=== PATIENT | female | born 1975 | race Caucasian/White ===

== ENCOUNTER → 2018-07-28 21:03 | Outpatient (CLI) | payer OTHER, SELFPAY ==
[2018-07-28 21:13] LABS: Absolute Neutrophil Count 3.7 X10^3/uL (2.0-7.7); Basophil# 0.04 X10^3/uL; Basophil% 0.7 % (0-1); Eosinophils% 1.7 % (0-5); Hematocrit 35.7 % (37-47); Hemoglobin 11.6 g/dl (12.0-15.0); Lymphocyte % 23.9 % (19-41); Mean Corp Hgb Conc 32.5 g/gl (32-36); Mean Corpuscular Hgb 29.7 pg (27.0-32.0); Mean Corpuscular Volume 91.5 fL (81-99); Mean Platelet Vol. 10.4 fl (6.2-12.0); Monocyte# 0.59 X10^3/uL; Monocyte% 10.1 % (0-10); Neutrophil # 3.71 X10^3/uL (2.7-7.7); Neutrophil % 63.4 % (47-70); Platelet Count 303 K/mm3 (150-450); RBC Distribution Width SD 46.4 fl (35.1-43.9); White Blood Count 5.9 K/mm3 (4.4-11.0)
[2018-07-28 21:17] LABS: POSITIVE COUNT NO; POSITIVE DIFFERENTIAL NO; POSITIVE MORPHOLOGY NO
[2018-07-28 21:24] LABS: ALB/GLOB Ratio 1.1 RATIO (0.9-2.4); AST(SGOT) 30 U/L (15-37); Alanine Aminotransfer ALT/SGPT 43 U/L (13-56); Albumin, Serum 3.8 g/dL (3.2-5.0); Alkaline Phosphatase 77 U/L (45-117); Anion Gap 7 (5-15); BUN 12 mg/dL (7-18); BUN/Creat Ratio 15.5 RATIO (10-20); Calcium,Total 8.4 mg/dL (8.5-10.1); Chloride 106 mmol/L (98-107); Creatinine, Serum 0.77 mg/dL (0.55-1.02); EST Glomerular Filtration Rate 87 mL/min (>60); Erythrocyte Sedimentation Rate 10 mm/hr (0-20); Est Glom Filt Rate - Afr Amer 105 mL/min (>60); Globulin 3.6 g/dL (2.2-4.2); Glucose 83 mg/dL (74-106); Potassium 4.1 mmol/L (3.5-5.1); Protein, Total 7.4 g/dL (6.4-8.2); Sodium Level 139 mmol/L (136-145)
[2018-07-29 10:06] LABS: CRP < 2.90 mg/L (0.0-3.0)
--- OUTSIDE RECORDS SUMMARY | 2018-10-02 17:16 | XMS RPT_ITS ---
:1975 Author Organization OHIP Care Team Providers Name Role Phone Priya Reyes [employer] Attending Unavailable Georgia Jack Primary Care Unavailable Priya Reyes [employer] Referring Unavailable Bernard Chaudhari Consulting Unavailable PROBLEMS PROBLEMS DATE TYPE CONDITION / CODE ATTENDING STATUS SOURCE 07/29/2018 Unknown M05.79 - Reyes, Active [facility] Priya [employer] [facility] arthritis with Hospital rheumatoid factor Repository of multiple sites without organ or systems involvement / M05.79(ICD-10) 07/29/2018 Unknown Z79.899 - Other Reyes, Active [facility] Priya [employer] [facility] (current) drug Hospital therapy / Repository Z79.899(ICD-10) PROCEDURES PROCEDURES No Procedure Records FoundRESULTS RESULTS OFFICE VISIT Observed: 07/29/2018 Status: F Source: [place] 12:22 PM [facility] RE[facility]ITORY [facility] [address] [place] [address] OFFICE VISIT Date of Service: 07/28/18 MR#: [id number] Acct: [id number] Name: GEORGIA PENA Rep #: [id number] : 1975 Provider: JARAD Reyes Age/Sex: 43/F Location: [facility] Status: Signed Intake Intake Visit Reasons: BROUGHT IN PAPER, for lab work HPI HPI (General) HPI HPI: GEORGIA PENA, is a 43 F who presents to the office today for Assessment AND Plan Orders Orders: Coding Level of Care Code No Charge 07/29/18 1222 <Electronically signed by Priya Reyes [employer]> Date Priya Reyes [employer] CC: CBC W/DIFF, AUTOMATED Collected: 07/28/2018 Status: F Source: [place] 4:10 PM [facility] REPOSITORY TYPE CODE TESTS RESULT OUT OF RANGE REFERENCE UNITS LAB L100.1000 4.4-11.0 K/mm3 Normal WBC 5.9 LAB L100.1200 4.2-5.4 M/mm3 Low RBC 3.90 LAB L100.1300 12.0-15.0 g/dl Low HGB 11.6 LAB L100.1400 37-47 % Low HCT 35.7 LAB L100.1500 81-99 fL Normal MCV 91.5 LAB L100.1600 27.0-32.0 pg Normal MCH 29.7 LAB L100.1700 32-36 g/gl Normal MCHC 32.5 LAB L100.1810 11.6-14.6 % Normal RDW CV 14.0 LAB L100.1820 35.1-43.9 fl High RDW SD 46.4 LAB L100.1900 150-450 K/mm3 Normal PLT 303 LAB L100.2000 6.2-12.0 fl Normal MPV 10.4 LAB L100.2100 47-70 % Normal NEUT% 63.4 LAB L100.2200 19-41 % Normal LY% 23.9 LAB L100.2300 0-10 % High MONO% 10.1 LAB L100.2400 0-5 % Normal EO% 1.7 LAB L100.2500 0-1 % Normal BASO% 0.7 LAB L100.2550 0.0-0.9 % Normal IM GRAN % 0.200 Result Comment: IG% - Immature Granulocytes (promyelocytes, myelocytes and metamyelocytes) > 1% indicates that a LEFT SHIFT is Present. LAB L100.2620 2.0-7.7 X10 3/uL Normal Absolute Neut 3.7 LAB L100.2720 0.83-4.51 X10 3/ul Normal Absolute Lymph 1.40 Performed By: #### L100.0100, L101.9900, L500.4050, L501.6710 #### [facility] [address] [place], [address] ERYTHROCYTE SED RATE Collected: 07/28/2018 Status: F Source: [place] 4:10 PM [facility] REPOSITORY TYPE CODE TESTS RESULT OUT OF RANGE REFERENCE UNITS LAB L102.0000 0-20 mm/hr Normal SED RATE 10 Performed By: #### L100.0100, L101.9900, L500.4050, L501.6710 #### [facility] [address] [place], [address] COMPREHENSIVE METABOLIC Collected: 07/28/2018 Status: F Source: [place] [facility] 4:10 PM [facility] REPOSITORY Order Comment: PLEASE ADD CRP TO BLOOD FROM 07-28-18 WY2 5 A/E TYPE CODE TESTS RESULT OUT OF RANGE REFERENCE UNITS LAB L501.0100 74-106 mg/dL Normal GLU 83 Result Comment: Please note revised GLUCOSE reference range effective 2017. LAB L501.1000 7-18 mg/dL Normal BUN 12 LAB L501.1100 0.55-1.02 mg/dL Normal CREAT,SERUM 0.77 Result Comment: The validity of the calculated GFR AND GFRAA in patients over 70 years has not been determined. Clinical correlation is essential. LAB L501.1110 >60 mL/min Normal EST GFR 87 Result Comment: Non- GFR Calc LAB L501.1115 >60 mL/min Normal EST GFR - AA 105 Result Comment: GFR Calc LAB L501.1300 10-20 RATIO Normal BUN/CRE 15.5 LAB L501.1500 6.4-8.2 g/dL T Normal PROT 7.4 LAB L501.1800 3.2-5.0 g/dL Normal ALB 3.8 LAB L501.1950 2.2-4.2 g/dL Normal GLOB 3.6 LAB L501.2000 0.9-2.4 RATIO Normal A/G 1.1 LAB L501.2200 8.5-10.1 mg/dL Low CA 8.4 LAB L501.4100 15-37 U/L Normal AST 30 LAB L501.4305 45-117 U/L Normal ALK P 77 LAB L501.4405 13-56 U/L Normal ALT 43 LAB L501.4600 0.20-1.00 mg/dL T Normal BILI 0.20 LAB L501.5300 136-145 mmol/L NA Normal 139 LAB L501.5600 3.5-5.1 mmol/L K Normal 4.1 LAB L501.5900 98-107 mmol/L CL Normal 106 LAB L501.6100 21.0-32.0 mmol/L Normal CO2 26.0 LAB L501.6200 5-15 Normal GAP 7 Performed By: #### L100.0100, L101.9900, L500.4050, L501.6710 #### [facility] [address] [place], [address] CRP Collected: 07/28/2018 Status: F Source: [place] 4:10 PM [facility] REPOSITORY Order Comment: PLEASE ADD CRP TO BLOOD FROM 07-28-18 WY 5 A/E TYPE CODE TESTS RESULT OUT OF RANGE REFERENCE UNITS LAB L501.6710 0.0-3.0 mg/L Normal < 2.90 C-REACTIVE PROT Result Comment: C-Reactive Protein (CRP) provides useful information for the diagnosis, therapy and monitoring of inflammatory processes and associated diseases. For the evaluation of Relative Risk for Cardiovascular Disease, a High Sensitivity CRP (HSCRP) should be ordered. Performed By: #### L100.0100, L101.9900, L500.4050, L501.6710 #### [facility] [address] [place], [address] ALLERGIES ALLERGIES No Allergies Records FoundENCOUNTERS ENCOUNTERS ADMIT/DISCHARGE ACCOUNT ADMITTING ENCOUNTER LOCATION SOURCE NUMBER CLASS 07/28/2018 [id number] Ambulatory [address] ing:[facility]SPEC Repository PAYERS PAYERS ENCOUNTER GUARANTOR PAYER SUBSCRIBER SOURCE 07/28/2018 [place] [id number] Primary [place] SUAREZ: [place]akan [place] Insurance:[id number] [address]Hrz: (327) Number: Repository [phone] HP) [id number] Date:[id number] [id number]: 07/28/2018 Secondary NOT GIVENUNK [employer] Insurance:[facility]LF [facility]Y [facility] Number: Effective Repository Date:2018-07-28
== END ==
PROVIDERS: Referring Provider Nurse Practitioner; Visit Provider Nurse Practitioner
DX: M05.79 Rheumatoid arthritis with rheumatoid factor of multiple sites without organ or systems involvement (principal); Z79.899 Other long term (current) drug therapy
CPT/HCPCS: 80053; 85025; 85652; 86140

== ENCOUNTER → 2018-11-19 10:56 | Outpatient (CLI) | payer OTHER, SELFPAY ==
[2018-11-19 12:15] LABS: Absolute Lymphocyte Count 1.46 X10^3/ul (0.83-4.51); Absolute Neutrophil Count 2.8 X10^3/uL (2.0-7.7); Basophil# 0.02 X10^3/uL; Basophil% 0.4 % (0-1); Eosinophil# 0.06 X10^3/uL; Eosinophils% 1.3 % (0-5); Hematocrit 33.2 % (37-47); Lymphocyte # 1.46 X10^3/ul (4.0); Mean Corp Hgb Conc 33.1 g/gl (32-36); Mean Corpuscular Hgb 29.8 pg (27.0-32.0); Mean Platelet Vol. 10.2 fl (6.2-12.0); Monocyte# 0.35 X10^3/uL; Monocyte% 7.4 % (0-10); Neutrophil # 2.82 X10^3/uL (2.7-7.7); Neutrophil % 59.9 % (47-70); POSITIVE COUNT NO; POSITIVE DIFFERENTIAL NO; POSITIVE MORPHOLOGY NO; Platelet Count 302 K/mm3 (150-450); RBC Distribution Width CV 14.2 % (11.6-14.6); RBC Distribution Width SD 46.5 fl (35.1-43.9); Red Blood Count 3.69 M/mm3 (4.2-5.4); White Blood Count 4.7 K/mm3 (4.4-11.0)
[2018-11-19 12:42] LABS: Vitamin B12 406 pg/mL (211-911); Vitamin D,25 Hydroxy 33.9 ng/mL (29.95-100.01)
[2018-11-19 12:57] LABS: Hemoglobin A1c 5.4 % (4.2-6.3)
[2018-11-19 13:55] LABS: Anion Gap 8 (5-15); BUN 8 mg/dL (7-18); BUN/Creat Ratio 11.6 RATIO (10-20); Calcium,Total 8.7 mg/dL (8.5-10.1); Chloride 109 mmol/L (98-107); Cholesterol 220 mg/dL (200); Creatinine, Serum 0.69 mg/dL (0.55-1.02); EST Glomerular Filtration Rate 99 mL/min (>60); Est Glom Filt Rate - Afr Amer 120 mL/min (>60); Ferritin 9 ng/mL (8-252); Glucose 90 mg/dL (74-106); High Density Lipoprotein 54 mg/dL; Iron 43 ug/dL (50-170); Iron Binding Capacity,Total 394 ug/dL (250-450); Potassium 4.3 mmol/L (3.5-5.1); Sodium Level 140 mmol/L (136-145); Triglycerides 109 mg/dL; Very Low Density Lipoprotein 22 mg/dL (5-40)
[2018-11-19 15:50] LABS: Microalbumin,Random Urine < 5.0 mg/L (NO RANGE EST.)
== END ==
PROVIDERS: Family Provider Family Medicine; PCP Family Medicine; Referring Provider Family Medicine; Visit Provider Family Medicine
DX: D64.9 Anemia, unspecified (principal); R73.09 Other abnormal glucose; E78.5 Hyperlipidemia, unspecified; E55.9 Vitamin D deficiency, unspecified; R53.83 Other fatigue
CPT/HCPCS: 36415; 80048; 80061; 82043; 82306; 82570; 82607; 82728; 82746; 83036; 83540; 83550; 85025

== ENCOUNTER → 2018-12-17 10:03 | Outpatient (CLI) | payer OTHER, SELFPAY ==
[2018-11-29 09:29] VITALS: BMI 30.6
[2018-12-17 12:46] LABS: Absolute Lymphocyte Count 1.19 X10^3/ul (0.83-4.51); Absolute Neutrophil Count 2.6 X10^3/uL (2.0-7.7); Basophil# 0.02 X10^3/uL; Basophil% 0.5 % (0-1); Eosinophils% 2.3 % (0-5); Lymphocyte # 1.19 X10^3/ul (4.0); Lymphocyte % 27.5 % (19-41); Mean Corp Hgb Conc 23.5 g/gl (32-36); Mean Corpuscular Hgb 21.7 pg (27.0-32.0); Mean Corpuscular Volume 92.1 fL (81-99); Mean Platelet Vol. 10.8 fl (6.2-12.0); Monocyte# 0.43 X10^3/uL; Monocyte% 9.9 % (0-10); Neutrophil # 2.59 X10^3/uL (2.7-7.7); Neutrophil % 59.8 % (47-70); Platelet Count 293 K/mm3 (150-450); RBC Distribution Width CV 14.4 % (11.6-14.6); RBC Distribution Width SD 47.1 fl (35.1-43.9); Red Blood Count 3.69 M/mm3 (4.2-5.4); White Blood Count 4.3 K/mm3 (4.4-11.0)
[2018-12-17 12:50] LABS: POSITIVE COUNT NO; POSITIVE DIFFERENTIAL NO; POSITIVE MORPHOLOGY NO
[2018-12-17 13:14] LABS: Ferritin 30 ng/mL (8-252); Iron 38 ug/dL (50-170); Iron Binding Capacity,Total 337 ug/dL (250-450)
== END ==
PROVIDERS: Family Provider Family Medicine; PCP Family Medicine; Referring Provider Family Medicine; Visit Provider Family Medicine
DX: D50.9 Iron deficiency anemia, unspecified (principal)
CPT/HCPCS: 36415; 82728; 83540; 83550; 85025

== ENCOUNTER 2018-12-21 08:06 | Day surgery (SDC) | payer OTHER, SELFPAY ==
[2018-11-29 09:29] VITALS: BMI 30.6
--- NOTE | 2018-11-29 09:53 | HP_ITS ---
Intake Vital Signs 11/29/18 Height 5 ft 3.75 in 11/29/18 Weight: 177 lb 11/29/18 Body Mass Index (BMI) 30.6 11/29/18 Blood Pressure 116/74 11/29/18 Blood Pressure Location Rt brachial 11/29/18 Blood Pressure Position Sitting 11/29/18 Respiratory Rate 18 11/29/18 Pulse Rate 85 Intake Visit Reasons: Upper & Lower Scope Anemia & Familly Hx (Father) [employer] Required: No Is patient in pain?: No Allergies No Known Allergies Allergy (Unverified 11/29/18 09:30) Medications diphenhydramine 25 mg capsule 25 mg PO QHS PRN 11/29/18 [History Confirmed 11/29/18] ferrous sulfate 325 mg (65 mg iron) tablet 325 mg PO BID tab 11/29/18 [History Confirmed 11/29/18] hydroxychloroquine 200 mg tablet 300 mg PO DAILY tab 11/29/18 [History Confirmed 11/29/18] leucovorin calcium 5 mg tablet 5 mg PO QWEEK tab 11/29/18 [History Confirmed 11/29/18] methotrexate sodium 2.5 mg tablet 20 mg PO QWEEK tab 11/29/18 [History Confirmed 11/29/18] naproxen sodium 220 mg capsule 220 mg PO BID PRN 11/29/18 [History Confirmed 11/29/18] PFSH Medical History Anemia (Acute) Rheumatoid arthritis (Acute) Surgical History S/P (Acute) S/P tubal ligation (Acute) h/o finger surgery (Acute) s/p tonsillectomy (Acute) Family History Father Colon cancer Son Asthma Social History Smoking Status: Never smoker alcohol intake: current alcohol intake frequency: holidays/special occasions only HPI HPI HPI: TIERRA PENA, is a 43 F who presents to the office today for HPI HPI Surgical H&P: Yes HPI: TIERRA PENA, is a 43 F who presents to the office today for colonoscopy. Patient reports that her father was diagnosed with chloride of cancer at age 59. She is never had a colonoscopy in the past. She denies any gross blood in her stool. She does have some anemia but she says she has been anemic ever since she had her first child 18 years ago. She also has off-and-on GERD. ROS General General: Yes fatigue; no weight change Musc Musculoskeletal: Yes rheumatoid arthritis Cardio Cardiovascular: No murmur, pacemaker, heart disease, atrial fibrillation, high blood pressure, heart attack, heart stent, palpitations, shortness of breat with exertion or chest pain Psych Psychiatric: No depression or anxiety Resp Respiratory: No shortness of breath, No sleep apnea, No cough, No COPD, No asthma, No emphysema, No wheezing Gastro Gastrointestinal: No abdominal pain, No nausea or vomiting, No diarrhea, No constipation, No blood in stool, No acid reflux, No hemorrhoids, No ulcers, No gallbladder problem, No black,tarry stools Rickey Hematologic: No blood thinners, Yes anemia Exam Const General: cooperative Orientation: alert, oriented x3 Resp Effort & Inspection: normal respiratory effort Auscultation: clear to auscultation bilaterally Cardio Rate: regular rate Rhythm: regular rhythm Heart Sounds: no murmurs GI Inspection: non-distended Palpation: soft, nontender Assessment & Plan Problems 1. Family history of malignant neoplasm of colon in first degree relative diagnosed when younger than 60 years of age Z80.0 2. Gastroesophageal reflux disease, esophagitis presence not specified K21.9 Plan The patient has long-standing GERD as well as a family history in a first-degree relative with colorectal cancer. Patient requires EGD and colonoscopy. I explained endoscopy in detail to the patient. I explained the risks including but not limited to stroke or heart attack with anesthesia, perforation of the GI tract, bleeding, infection. I explained that any of these could necessitate further emergency surgery. The patient understands and all questions were answered sufficiently. The patient wishes to proceed with procedure. Wallace Whitehead MD Pager: [facility] [address] [place] [address], [address] [place] [address] Office: Orders Orders: Colonoscopy Today Z80.0 EGD Today K21.9 Coding Level of Care Code Off vis,new,level 3 Diagnoses Family history of malignant neoplasm of colon in first degree relative diagnosed when younger than 60 years of age Z80.0 Gastroesophageal reflux disease, esophagitis presence not specified K21.9 ??Esophagitis presence: esophagitis presence not specified 11/29/18 0954 <Electronically signed by Wallace Whitehead MD> Date Wallace ALICEA I have re-examined the patient. There are no clinical changes since date of exam.
--- NOTE | 2018-12-21 | GASB_PTH ---
PATIENT: TIERRA PENA LOC: EN U#:[id number] AGE/SX: 43/F ROOM: RE12/21/[address]: Dr. Wallace Whitehead MD : 1975 BED: DIS: 12/21/2018 SPEC #: [id number] RECD: 12/21/18 13:54 STATUS: JORDANA HOBBSBrad #: [id number] BETTY: 12/21/18 00:[address]: Wallace Whitehead DEPT: SURGICAL PATHOLOGY RECD BY: Walter Ramey ENTERED: 12/21/18 13:55 SP TYPE: Gastric Bx OTHR DR: Dr. Jose Luis Alegria MD Tissues: A - Gastric mucous membrane B - Gastric mucous membrane Procedures: Special Stain Group II Surgery Specimen Level IV Alcian Blue/PAS (control) HEADER OPERATION: Colonoscopy, E[place] PRE-OP DIAGNOSIS: GERD, family history malignant neoplasm of colon TISSUE SUBMITTED: A - Antrum biopsy for H. pylori and path, B - GE junction biopsy MICROSCOPIC DIAGNOSIS A. Gastric antrum, biopsy: Mild chronic gastritis. See comment. B. Gastroesophageal junction, biopsy: Fragments of gastric mucosa with mild chronic inflammation. No evidence of intestinal metaplasia. See comment. AM:rudy 12/22/18 COMMENT A. The results of immunohistochemistry for Helicobacter pylori will be reported separately ([id number]). B. Alcian blue/PAS stain with matched control supports the above diagnosis. MICROSCOPIC DESCRIPTION Slides are reviewed. GROSS DESCRIPTION A - Received in fixative is one container labeled with the patient's name and designated antrum biopsy. The specimen consists of two irregular fragments of light rivas soft tissue that in aggregate measure 0.6 x 0.3 x 0.1 cm. The specimen is totally submitted in one cassette. B - Received in fixative is one container labeled with the patient's name and designated GE junction. The specimen consists of two irregular fragments of light rivas soft tissue that in aggregate measure 0.7 x 0.3 x 0.1 cm. The specimen is totally submitted in one cassette. / AM:rudy 12/21/18 TC:3 CPT: 41140 x2, 84267
[2018-12-21 08:41] VITALS: BP 114/92; PULSE 84; RESP 18; TEMP 36.7; O2SAT 100; BMI 29.9
--- NOTE | 2018-12-21 09:15 | IMM_PTH ---
PATIENT: TIERRA PENA LOC: EN U#:[id number] AGE/SX: 43/F ROOM: RE12/21/[address]: Dr. Wallace Whitehead MD : 1975 BED: DIS: 12/21/2018 SPEC #: [id number] RECD: 12/21/18 14:16 STATUS: JORDANA VICTORIA #: [id number] BETTY: 12/21/18 09:[address]: Wallace Whitehead DEPT: IMMUNOHISTOCHEMISTRY RECD BY: Fely Henriquez ENTERED: 12/21/18 14:16 SP TYPE: IMMUNO OTHR DR: Dr. Jose Luis Alegria MD Tissues: A - Stomach, NOS Procedures: H Pylori (initial) PHYSICIAN & INSTITUTION [place] [address] SPECIMEN INFORMATION: Tissue Source: A - Antrum biopsy Clinical Info: GERD Specimen Number: [id number] CPT code: 34836 METHODOLOGY: Deparaffinized sections of prefer/formalin-fixed tissue or PAP/DQ stained slides are incubated with monoclonal/polyclonal antibodies/oligonucleotide probes. Localization is made via biotin free immunoperoxidase method. Appropriate controls are performed and reacted as expected. Results on target cell population are indicated in the following table: RESULTS: ANTIBODY / CLONE RESULT Block A H Pylori (polyclonal) negative These tests were developed and their performance characteristics determined by [facility]. They may not have been cleared or approved by the U.S. Food and Drug Administration. The FDA has determined that such clearance or approval is not necessary. INTERPRETATION: A. Antrum biopsy: Negative for Helicobacter pylori organisms. AM:rudy 12/22/18
[2018-12-21 11:00] VITALS: BP 111/71; BP 114/92; PULSE 64; RESP 14; TEMP 36.9; O2SAT 98
--- NOTE | 2018-12-21 11:00 | OP.ENDO_ITS ---
12/21/2018 Jose Luis Alegria [address] [place] [address] Re : Upper GI endoscopy procedure for Georgia Gold Dear Dr. Alegria This procedure was performed on Friday, December 21, 2018. My impressions and recommendations are as follows: Impressions : - Philadelphia-colored mucosa suspicious for Quezada's esophagus. Biopsied. - The examination was otherwise normal. - Biopsies were taken with a cold forceps for Helicobacter pylori testing. Recommendations : - Await pathology results. - Discharge patient to home. - Resume previous diet. - Continue present medications. My findings are described in the full procedure note, which is enclosed. If I can be of further assistance, please feel free to contact me at Doctor phone number(s): , Work: . Sincerely, Wallace Whitehead MD 12/21/2018 10:59:51 AM This report has been signed electronically.
--- NOTE | 2018-12-21 11:01 | OP.ENDO_ITS ---
12/21/2018 Jose Luis Alegria [address] [place] [address] Re : Colonoscopy procedure for Georgia Malcolm Dear Dr. Alegria This procedure was performed on Friday, December 21, 2018. My impressions and recommendations are as follows: Impressions : - The entire examined colon is normal on direct and retroflexion views. - No specimens collected. Recommendations : - Discharge patient to home. - Resume previous diet. - Continue present medications. - Repeat colonoscopy in 10 years for screening purposes. My findings are described in the full procedure note, which is enclosed. If I can be of further assistance, please feel free to contact me at Doctor phone number(s): , Work: . Sincerely, Wallace Whitehead MD 12/21/2018 11:01:04 AM This report has been signed electronically.
[2018-12-21 11:05] VITALS: BP 114/92; BP 94/53; PULSE 69; RESP 16; O2SAT 99
[2018-12-21 11:10] VITALS: BP 114/92; BP 97/48; PULSE 75; RESP 16; O2SAT 99
[2018-12-21 11:15] VITALS: BP 105/66; BP 114/92; PULSE 67; RESP 16; TEMP 36.5; O2SAT 96
[2018-12-21 11:39] VITALS: BP 114/92
== END 2018-12-21 11:54 | disposition home or self-care (01) ==
LOC: EN 08:06 → AC 08:07
PROVIDERS: Family Provider Family Medicine; PCP Family Medicine; Referring Provider Family Medicine; Visit Provider Surgery
PROC: 0DJD8ZZ Inspection of Lower Intestinal Tract, Via Natural or Artificial Opening Endoscopic (ICD-10-PCS; CPT 45378; principal; 2018-12-21 09:10)
DX: K21.9 Gastro-esophageal reflux disease without esophagitis (principal); K29.50 Unspecified chronic gastritis without bleeding; K22.8 Other specified diseases of esophagus; Z12.11 Encounter for screening for malignant neoplasm of colon; Z80.0 Family history of malignant neoplasm of digestive organs; D64.9 Anemia, unspecified; M06.9 Rheumatoid arthritis, unspecified
CPT/HCPCS: 43239; 45378; 88305; 88313; 88342; J7120; J2405

== ENCOUNTER → 2018-12-31 14:30 | Outpatient (CLI) | payer OTHER, SELFPAY ==
[2018-12-21 08:41] VITALS: BMI 29.9
[2018-12-31 15:31] LABS: Absolute Lymphocyte Count 1.32 X10^3/ul (0.83-4.51); Absolute Neutrophil Count 3.4 X10^3/uL (2.0-7.7); Basophil# 0.03 X10^3/uL; Basophil% 0.6 % (0-1); Eosinophil# 0.09 X10^3/uL; Eosinophils% 1.7 % (0-5); Hematocrit 35.6 % (37-47); Hemoglobin 11.9 g/dl (12.0-15.0); Lymphocyte # 1.32 X10^3/ul (4.0); Lymphocyte % 24.6 % (19-41); Mean Corp Hgb Conc 33.4 g/gl (32-36); Mean Corpuscular Hgb 30.5 pg (27.0-32.0); Mean Corpuscular Volume 91.3 fL (81-99); Mean Platelet Vol. 10.8 fl (6.2-12.0); Monocyte# 0.51 X10^3/uL; Monocyte% 9.5 % (0-10); Neutrophil % 63.4 % (47-70); Platelet Count 302 K/mm3 (150-450); RBC Distribution Width CV 14.1 % (11.6-14.6); RBC Distribution Width SD 46.1 fl (35.1-43.9); White Blood Count 5.4 K/mm3 (4.4-11.0)
[2018-12-31 15:33] LABS: POSITIVE COUNT NO; POSITIVE DIFFERENTIAL NO; POSITIVE MORPHOLOGY NO
== END ==
PROVIDERS: Family Provider Family Medicine; PCP Family Medicine; Referring Provider Family Medicine; Visit Provider Family Medicine
DX: D50.9 Iron deficiency anemia, unspecified (principal)
CPT/HCPCS: 36415; 85025

== ENCOUNTER → 2019-03-24 09:27 | Outpatient (CLI) | payer OTHER, SELFPAY ==
[2019-03-01 09:31] VITALS: BMI 30.1
[2019-03-24 12:49] LABS: Cholesterol 202 mg/dL (200); Ferritin 31 ng/mL (8-252); High Density Lipoprotein 51 mg/dL; Iron 101 ug/dL (50-170); Iron Binding Capacity,Total 332 ug/dL (250-450); Triglycerides 200 mg/dL; Very Low Density Lipoprotein 40 mg/dL (5-40)
[2019-03-24 12:54] LABS: Hemoglobin A1c 4.6 % (4.2-6.3); Vitamin D,25 Hydroxy 27.2 ng/mL (29.95-100.01)
[2019-03-24 12:55] LABS: Absolute Lymphocyte Count 1.34 X10^3/uL (0.83-4.51); Absolute Neutrophil Count 2.2 X10^3/uL (2.0-7.7); Basophil# 0.02 X10^3/uL; Basophil% 0.5 % (0-1); Eosinophil# 0.11 X10^3/uL; Eosinophils% 2.7 % (0-5); Hematocrit 35.1 % (37-47); Hemoglobin 11.4 g/dL (12.0-15.0); Lymphocyte # 1.34 X10^3/ul (4.0); Lymphocyte % 32.5 % (19-41); Mean Corp Hgb Conc 32.5 g/dL (32-36); Mean Corpuscular Hgb 31.1 pg (27.0-32.0); Mean Corpuscular Volume 95.9 fL (81-99); Mean Platelet Vol. 10.6 fl (6.2-12.0); Monocyte# 0.41 X10^3/uL; NRBC Flagged by Analyzer 0 % (0-5); Neutrophil # 2.23 X10^3/uL (2.7-7.7); Neutrophil % 54.1 % (47-70); Platelet Count 260 K/mm3 (150-450); RBC Distribution Width CV 13.5 % (11.6-14.6); RBC Distribution Width SD 48.1 fl (35.1-43.9); Red Blood Count 3.66 M/mm3 (4.2-5.4); White Blood Count 4.1 K/mm3 (4.4-11.0)
== END ==
PROVIDERS: Family Provider Family Medicine; PCP Family Medicine; Referring Provider Family Medicine; Visit Provider Family Medicine
DX: D50.9 Iron deficiency anemia, unspecified (principal); R73.09 Other abnormal glucose; E78.5 Hyperlipidemia, unspecified; E55.9 Vitamin D deficiency, unspecified
CPT/HCPCS: 36415; 80061; 82306; 82728; 83036; 83540; 83550; 85025

== ENCOUNTER → 2019-06-21 11:10 | Outpatient (CLI) | payer OTHER, SELFPAY ==
[2019-03-01 09:31] VITALS: BMI 30.1
[2019-06-21 13:49] LABS: Absolute Lymphocyte Count 0.99 X10^3/uL (0.83-4.51); Basophil# 0.04 X10^3/uL; Eosinophil# 0.46 X10^3/uL; Eosinophils% 11.3 % (0-5); Hematocrit 35.2 % (37-47); Hemoglobin 11.6 g/dL (12.0-15.0); Lymphocyte # 0.99 X10^3/ul (4.0); Lymphocyte % 24.3 % (19-41); Mean Corpuscular Volume 94.1 fL (81-99); Mean Platelet Vol. 10.1 fl (6.2-12.0); Monocyte# 0.54 X10^3/uL; Monocyte% 13.3 % (0-10); NRBC Flagged by Analyzer 0 % (0-5); Neutrophil # 2.03 X10^3/uL (2.7-7.7); Neutrophil % 49.9 % (47-70); Platelet Count 269 K/mm3 (150-450); RBC Distribution Width CV 13.5 % (11.6-14.6); Red Blood Count 3.74 M/mm3 (4.2-5.4); White Blood Count 4.1 K/mm3 (4.4-11.0)
[2019-06-21 14:05] LABS: Ferritin 14 ng/mL (8-252); Iron 54 ug/dL (50-170); Iron Binding Capacity,Total 360 ug/dL (250-450)
== END ==
PROVIDERS: Family Provider Family Medicine; PCP Family Medicine; Visit Provider Family Medicine
DX: D50.9 Iron deficiency anemia, unspecified (principal)
CPT/HCPCS: 36415; 82728; 83540; 83550; 85025

== ENCOUNTER → 2019-06-23 09:49 | Outpatient (CLI) | payer OTHER, SELFPAY ==
[2019-03-01 09:31] VITALS: BMI 30.1
--- NOTE | 2019-06-23 09:55 | RAD_ITS ---
STUDY: X-RAY CHEST REASON FOR EXAM: Female, 44 years old. One-month history of shortness of breath on exertion and cough. TECHNIQUE: PA and lateral views of the chest. COMPARISON: None. FINDINGS: The lungs are clear and expanded. Scattered calcified granulomas. There is no demonstrated pleural abnormality. Normal size heart. Normal mediastinum and franc. Normal visualized pulmonary arteries. Normal visualized aortic arch and descending thoracic aorta. There are mild degenerative changes of the visualized thoracic spine. Normal visualized ribs, clavicles, and shoulders. There is no demonstrated abnormality of the visualized soft tissue structures of the upper abdomen. RAD/Chest PA and Lateral IMPRESSION: Scattered calcified granulomas. Electronically Signed: Jerome Fay, at 10:06 EST , Service support ,
== END ==
LOC: MTLAB 09:52 → MTRAD 09:53
PROVIDERS: Family Provider Family Medicine; PCP Family Medicine; Referring Provider Family Medicine; Visit Provider Family Medicine
DX: R06.02 Shortness of breath (principal)
CPT/HCPCS: 71046

== ENCOUNTER → 2020-01-18 08:02 | Outpatient (CLI) | payer OTHER, SELFPAY ==
[2020-01-03 08:52] VITALS: BMI 30.1
[2020-01-18 10:15] LABS: Absolute Lymphocyte Count 1.36 X10^3/uL (0.83-4.51); Absolute Neutrophil Count 1.8 X10^3/uL (2.0-7.7); Basophil# 0.03 X10^3/uL; Basophil% 0.8 % (0-1); Eosinophil# 0.13 X10^3/uL; Eosinophils% 3.5 % (0-5); Hematocrit 35.9 % (37-47); Hemoglobin 11.3 g/dL (12.0-15.0); Lymphocyte # 1.36 X10^3/ul (4.0); Lymphocyte % 36.6 % (19-41); Mean Corp Hgb Conc 31.5 g/dL (32-36); Mean Corpuscular Hgb 30.7 pg (27.0-32.0); Mean Corpuscular Volume 97.6 fL (81-99); Mean Platelet Vol. 10.6 fl (6.2-12.0); Monocyte# 0.38 X10^3/uL; Monocyte% 10.2 % (0-10); NRBC Flagged by Analyzer 0 % (0-5); Neutrophil # 1.81 X10^3/uL (2.7-7.7); Neutrophil % 48.6 % (47-70); Platelet Count 325 K/mm3 (150-450); RBC Distribution Width CV 14.7 % (11.6-14.6); RBC Distribution Width SD 52.8 fl (35.1-43.9); Red Blood Count 3.68 M/mm3 (4.2-5.4); White Blood Count 3.7 K/mm3 (4.4-11.0)
[2020-01-18 10:37] LABS: Vitamin B12 436 pg/mL (211-911); Vitamin D,25 Hydroxy 37.2 ng/mL
[2020-01-18 10:46] LABS: AST(SGOT) 33 U/L (15-37); Alanine Aminotransfer ALT/SGPT 52 U/L (13-56); Albumin, Serum 3.6 g/dL (3.2-5.0); Alkaline Phosphatase 72 U/L (45-117); Anion Gap 6 (5-15); BUN 14 mg/dL (7-18); BUN/Creat Ratio 21.3 RATIO (10-20); Calcium,Total 8.5 mg/dL (8.5-10.1); Chloride 106 mmol/L (98-107); Cholesterol 229 mg/dL (200); Creatinine, Serum 0.66 mg/dL (0.55-1.02); EST Glomerular Filtration Rate 104 mL/min (>60); Est Glom Filt Rate - Afr Amer 126 mL/min (>60); Ferritin 17 ng/mL (8-252); Globulin 3.5 g/dL (2.2-4.2); Glucose 96 mg/dL (74-106); High Density Lipoprotein 47 mg/dL; Iron 97 ug/dL (50-170); Iron Binding Capacity,Total 384 ug/dL (250-450); Potassium 4.2 mmol/L (3.5-5.1); Protein, Total 7.1 g/dL (6.4-8.2); Sodium Level 139 mmol/L (136-145); Triglycerides 199 mg/dL; Very Low Density Lipoprotein 40 mg/dL (5-40)
== END ==
PROVIDERS: PCP Family Medicine; Visit Provider Family Medicine
DX: D64.9 Anemia, unspecified (principal); E78.5 Hyperlipidemia, unspecified; E55.9 Vitamin D deficiency, unspecified
CPT/HCPCS: 36415; 80053; 80061; 82306; 82607; 82728; 82746; 83540; 83550; 85025

== ENCOUNTER → 2020-07-03 09:37 | Outpatient (CLI) | payer OTHER, SELFPAY ==
[2020-01-03 08:52] VITALS: BMI 30.1
[2020-07-03 12:32] LABS: Absolute Lymphocyte Count 2.68 X10^3/uL (0.83-4.51); Basophil# 0.04 X10^3/uL; Basophil% 0.6 % (0-1); Eosinophils% 1.6 % (0-5); Hematocrit 35.4 % (37-47); Hemoglobin 11.4 g/dL (12.0-15.0); Lymphocyte # 2.68 X10^3/ul (4.0); Lymphocyte % 42.3 % (19-41); Mean Corp Hgb Conc 32.2 g/dL (32-36); Mean Corpuscular Hgb 30.9 pg (27.0-32.0); Mean Corpuscular Volume 95.9 fL (81-99); Mean Platelet Vol. 10.2 fl (6.2-12.0); Monocyte# 0.52 X10^3/uL; Monocyte% 8.2 % (0-10); NRBC Flagged by Analyzer 0 % (0-5); Neutrophil # 2.99 X10^3/uL (2.7-7.7); Neutrophil % 47.1 % (47-70); Platelet Count 377 K/mm3 (150-450); RBC Distribution Width CV 13.6 % (11.6-14.6); RBC Distribution Width SD 47.6 fl (35.1-43.9); Red Blood Count 3.69 M/mm3 (4.2-5.4); White Blood Count 6.3 K/mm3 (4.4-11.0)
[2020-07-03 12:36] LABS: Vitamin B12 437 pg/mL (211-911)
[2020-07-03 13:18] LABS: ALB/GLOB Ratio 1.1 RATIO (0.9-2.4); AST(SGOT) 12 U/L (15-37); Alanine Aminotransfer ALT/SGPT 27 U/L (13-56); Albumin, Serum 3.7 g/dL (3.2-5.0); Alkaline Phosphatase 62 U/L (45-117); Anion Gap 6 (5-15); BUN 16 mg/dL (7-18); BUN/Creat Ratio 21.3 RATIO (10-20); Calcium,Total 8.6 mg/dL (8.5-10.1); Chloride 107 mmol/L (98-107); Cholesterol 264 mg/dL (200); Creatinine, Serum 0.75 mg/dL (0.55-1.02); EST Glomerular Filtration Rate 89 mL/min (>60); Est Glom Filt Rate - Afr Amer 108 mL/min (>60); Ferritin 11 ng/mL (8-252); Globulin 3.3 g/dL (2.2-4.2); Glucose 88 mg/dL (74-106); High Density Lipoprotein 51 mg/dL; Iron 100 ug/dL (50-170); Iron Binding Capacity,Total 365 ug/dL (250-450); Potassium 3.7 mmol/L (3.5-5.1); Sodium Level 140 mmol/L (136-145); Triglycerides 194 mg/dL; Very Low Density Lipoprotein 39 mg/dL (5-40)
== END ==
PROVIDERS: PCP Family Medicine; Referring Provider Family Medicine; Visit Provider Family Medicine
DX: D64.9 Anemia, unspecified (principal); E78.5 Hyperlipidemia, unspecified; E55.9 Vitamin D deficiency, unspecified
CPT/HCPCS: 36415; 80053; 80061; 82306; 82607; 82728; 82746; 83540; 83550; 85025

== ENCOUNTER → 2020-08-28 11:19 | Outpatient (CLI) | payer OTHER, SELFPAY ==
[2020-01-03 08:52] VITALS: BMI 30.1
[2020-08-28 12:45] LABS: SARS-COV-2 TOTAL ABS Reactive (Nonreactive)
== END ==
PROVIDERS: PCP Family Medicine; Referring Provider Internal Medicine Pulmonary Disease; Visit Provider Internal Medicine Pulmonary Disease
DX: Z01.84 Encounter for antibody response examination (principal); R06.00 Dyspnea, unspecified
CPT/HCPCS: 36415; 86769

== ENCOUNTER → 2020-09-17 14:56 | Outpatient (CLI) | payer OTHER, SELFPAY ==
[2020-01-03 08:52] VITALS: BMI 30.1
[2020-09-17 18:44] LABS: CRP 4.43 mg/L (0.0-3.0)
[2020-09-17 19:38] LABS: Erythrocyte Sedimentation Rate 13 mm/hr (0-30)
== END ==
PROVIDERS: PCP Family Medicine; Referring Provider Family Medicine; Visit Provider Internal Medicine Pulmonary Disease
DX: J84.9 Interstitial pulmonary disease, unspecified (principal); R91.1 Solitary pulmonary nodule
CPT/HCPCS: 36415; 85652; 86140

== ENCOUNTER → 2020-10-04 11:22 | Outpatient (CLI) | payer OTHER, SELFPAY ==
[2020-01-03 08:52] VITALS: BMI 30.1
[2020-10-04 12:38] LABS: Absolute Lymphocyte Count 1.71 X10^3/uL (0.83-4.51); Absolute Neutrophil Count 8.6 X10^3/uL (2.0-7.7); Basophil# 0.06 X10^3/uL; Basophil% 0.5 % (0-1); Eosinophil# 0.06 X10^3/uL; Eosinophils% 0.5 % (0-5); Hematocrit 35.3 % (37-47); Hemoglobin 11.4 g/dL (12.0-15.0); Lymphocyte # 1.71 X10^3/ul (4.0); Lymphocyte % 15.4 % (19-41); Mean Corp Hgb Conc 32.3 g/dL (32-36); Mean Corpuscular Hgb 30.6 pg (27.0-32.0); Mean Corpuscular Volume 94.9 fL (81-99); Mean Platelet Vol. 10.3 fl (6.2-12.0); Monocyte# 0.64 X10^3/uL; Monocyte% 5.8 % (0-10); NRBC Flagged by Analyzer 0 % (0-5); Neutrophil # 8.57 X10^3/uL (2.7-7.7); Neutrophil % 77.3 % (47-70); Platelet Count 334 K/mm3 (150-450); RBC Distribution Width CV 15.4 % (11.6-14.6); RBC Distribution Width SD 51.8 fl (35.1-43.9); Red Blood Count 3.72 M/mm3 (4.2-5.4); White Blood Count 11.1 K/mm3 (4.4-11.0)
[2020-10-04 13:18] LABS: ALB/GLOB Ratio 1.1 RATIO (0.9-2.4); AST(SGOT) 11 U/L (15-37); Alanine Aminotransfer ALT/SGPT 21 U/L (13-56); Albumin, Serum 3.6 g/dL (3.2-5.0); Alkaline Phosphatase 55 U/L (45-117); Anion Gap 4 (5-15); BUN 12 mg/dL (7-18); BUN/Creat Ratio 15.7 RATIO (10-20); Calcium,Total 8.8 mg/dL (8.5-10.1); Chloride 106 mmol/L (98-107); Cholesterol 175 mg/dL (200); Creatinine, Serum 0.77 mg/dL (0.55-1.02); EST Glomerular Filtration Rate 87 mL/min (>60); Est Glom Filt Rate - Afr Amer 105 mL/min (>60); Globulin 3.3 g/dL (2.2-4.2); Glucose 91 mg/dL (74-106); High Density Lipoprotein 61 mg/dL; Potassium 3.6 mmol/L (3.5-5.1); Protein, Total 6.9 g/dL (6.4-8.2); Sodium Level 138 mmol/L (136-145); Triglycerides 232 mg/dL; Very Low Density Lipoprotein 46 mg/dL (5-40)
[2020-10-04 16:23] LABS: Vitamin D,25 Hydroxy 40.2 ng/mL
== END ==
PROVIDERS: PCP Family Medicine; Referring Provider Family Medicine; Visit Provider Family Medicine
DX: D64.9 Anemia, unspecified (principal); E78.5 Hyperlipidemia, unspecified; E55.9 Vitamin D deficiency, unspecified
CPT/HCPCS: 36415; 80053; 80061; 82306; 85025

== ENCOUNTER → 2020-10-15 13:09 | Outpatient (CLI) | payer OTHER, SELFPAY ==
[2020-01-03 08:52] VITALS: BMI 30.1
--- NOTE | 2020-10-15 13:11 | CT_ITS ---
STUDY: CT CHEST WITHOUT CONTRAST REASON FOR EXAM: Female, 45 years old. DYSPNEA, PULM NODULE RADIATION DOSAGE (If Supplied By Facility): CTDIvol = ( 10.42 ) mGy, DLP = ( 349.30 ) mGycm TECHNIQUE: Transaxial imaging was performed without the administration of intravenous contrast material. Individualized dose optimization techniques were used for this CT. COMPARISON: Chest x-ray dated 06/23/2019. FINDINGS: Great vessels of the mediastinum intact on this unenhanced study. No definite adenopathy. No pleural or pericardial effusion. No pneumothorax. A 0.3 cm pleural-based nodule versus focal scar in the right lower lobe medially, image #65. The punctate nodular density in the adjacent part of the right lower lobe, image #63. A 0.3 cm nodule in the right lower lobe, image #52. A 0.2 cm right lower lobe nodule, image #56. No additional pulmonary nodule or mass. Unremarkable visualized upper abdominal viscera. Multilevel thoracic spondylosis. CT/Chest without Contrast IMPRESSION: A few tiny nodular densities in the right lower lobe. These are nonspecific. Follow-up CT scan in 12 months may be obtained if the patient is at high risk for lung cancer. Electronically Signed: Catarino Smith MD at 1:25 EDT Tel , Service support ,
== END ==
PROVIDERS: PCP Family Medicine; Referring Provider Internal Medicine Pulmonary Disease; Visit Provider Internal Medicine Pulmonary Disease
DX: R06.00 Dyspnea, unspecified (principal); R91.8 Other nonspecific abnormal finding of lung field
CPT/HCPCS: 71250

== ENCOUNTER → 2020-11-22 13:37 | Outpatient (CLI) | payer OTHER, SELFPAY ==
[2020-01-03 08:52] VITALS: BMI 30.1
[2020-11-22 15:17] LABS: Erythrocyte Sedimentation Rate 4 mm/hr (0-30)
[2020-11-22 15:19] LABS: Absolute Lymphocyte Count 1.07 X10^3/uL (0.83-4.51); Absolute Neutrophil Count 7.6 X10^3/uL (2.0-7.7); Basophil# 0.02 X10^3/uL; Basophil% 0.2 % (0-1); Hematocrit 37.1 % (37-47); Hemoglobin 12.1 g/dL (12.0-15.0); Lymphocyte # 1.07 X10^3/ul (0.83-4.51); Lymphocyte % 11.7 % (19-41); Mean Corp Hgb Conc 32.6 g/dL (32-36); Mean Corpuscular Hgb 30.3 pg (27.0-32.0); Mean Platelet Vol. 10.7 fl (6.2-12.0); Monocyte# 0.44 X10^3/uL; Monocyte% 4.8 % (0-10); NRBC Flagged by Analyzer 0 % (0-5); Neutrophil # 7.61 X10^3/uL (2.7-7.7); Neutrophil % 82.9 % (47-70); Platelet Count 378 K/mm3 (150-450); RBC Distribution Width CV 13.9 % (11.6-14.6); RBC Distribution Width SD 47.7 fl (35.1-43.9); Red Blood Count 3.99 M/mm3 (4.2-5.4); White Blood Count 9.2 K/mm3 (4.4-11.0)
[2020-11-22 15:59] LABS: AST(SGOT) 12 U/L (15-37); Alanine Aminotransfer ALT/SGPT 19 U/L (13-56); Albumin, Serum 3.9 g/dL (3.2-5.0); Alkaline Phosphatase 71 U/L (45-117); Bilirubin, Direct 0.08 mg/dL (0.00-0.30); CRP < 2.90 mg/L (0.0-3.0); Creatinine, Serum 0.68 mg/dL (0.55-1.02); EST Glomerular Filtration Rate 99 mL/min (>60); Est Glom Filt Rate - Afr Amer 120 mL/min (>60); Globulin 3.8 g/dL (2.2-4.2); Protein, Total 7.7 g/dL (6.4-8.2)
== END ==
PROVIDERS: PCP Family Medicine; Referring Provider Family Medicine; Visit Provider Internal Medicine Pulmonary Disease
DX: M05.79 Rheumatoid arthritis with rheumatoid factor of multiple sites without organ or systems involvement (principal); M06.89 Other specified rheumatoid arthritis, multiple sites; J84.111 Idiopathic interstitial pneumonia, not otherwise specified; R91.8 Other nonspecific abnormal finding of lung field; Z79.899 Other long term (current) drug therapy
CPT/HCPCS: 36415; 80076; 82565; 85025; 85652; 86140

== ENCOUNTER → 2021-01-29 11:48 | Outpatient (CLI) | payer OTHER, SELFPAY ==
[2020-01-03 08:52] VITALS: BMI 30.1
[2021-01-29 15:31] LABS: Absolute Lymphocyte Count 1.04 X10^3/uL (0.83-4.51); Absolute Neutrophil Count 6.9 X10^3/uL (2.0-7.7); Basophil# 0.02 X10^3/uL; Basophil% 0.2 % (0-1); Eosinophil# 0.01 X10^3/uL; Eosinophils% 0.1 % (0-5); Hematocrit 39.1 % (37-47); Hemoglobin 12.5 g/dL (12.0-15.0); Lymphocyte # 1.04 X10^3/ul (0.83-4.51); Lymphocyte % 12.6 % (19-41); Mean Corpuscular Hgb 30.1 pg (27.0-32.0); Mean Corpuscular Volume 94.2 fL (81-99); Mean Platelet Vol. 10.7 fl (6.2-12.0); Monocyte# 0.24 X10^3/uL; Monocyte% 2.9 % (0-10); NRBC Flagged by Analyzer 0 % (0-5); Neutrophil # 6.91 X10^3/uL (2.7-7.7); Neutrophil % 83.8 % (47-70); Platelet Count 329 K/mm3 (150-450); RBC Distribution Width CV 13.7 % (11.6-14.6); RBC Distribution Width SD 46.9 fl (35.1-43.9); Red Blood Count 4.15 M/mm3 (4.2-5.4); White Blood Count 8.3 K/mm3 (4.4-11.0)
[2021-01-29 15:45] LABS: Vitamin B12 372 pg/mL (211-911); Vitamin D,25 Hydroxy 40.1 ng/mL
[2021-01-29 16:43] LABS: ALB/GLOB Ratio 1.2 RATIO (0.9-2.4); AST(SGOT) 14 U/L (15-37); Alanine Aminotransfer ALT/SGPT 24 U/L (13-56); Alkaline Phosphatase 58 U/L (45-117); Anion Gap 7 (5-15); BUN 9 mg/dL (7-18); BUN/Creat Ratio 14.4 RATIO (10-20); Calcium,Total 8.8 mg/dL (8.5-10.1); Chloride 106 mmol/L (98-107); Cholesterol 169 mg/dL (200); Creatinine, Serum 0.63 mg/dL (0.55-1.02); EST Glomerular Filtration Rate 109 mL/min (>60); Est Glom Filt Rate - Afr Amer 132 mL/min (>60); Ferritin 17 ng/mL (8-252); Globulin 3.2 g/dL (2.2-4.2); Glucose 101 mg/dL (74-106); High Density Lipoprotein 72 mg/dL; Iron 60 ug/dL (50-170); Iron Binding Capacity,Total 409 ug/dL (250-450); Potassium 4.3 mmol/L (3.5-5.1); Protein, Total 7.2 g/dL (6.4-8.2); Sodium Level 137 mmol/L (136-145); Triglycerides 71 mg/dL; Very Low Density Lipoprotein 14 mg/dL (5-40)
== END ==
PROVIDERS: PCP Family Medicine; Visit Provider Family Medicine
DX: D64.9 Anemia, unspecified (principal); E55.9 Vitamin D deficiency, unspecified; E78.5 Hyperlipidemia, unspecified
CPT/HCPCS: 36415; 80053; 80061; 82306; 82607; 82728; 82746; 83540; 83550; 85025

== ENCOUNTER → 2021-03-25 | Outpatient (CLI) | payer OTHER, SELFPAY | END | disposition home or self-care (01) | LOC: LABSPEC 13:43 | PROVIDERS: PCP Family Medicine; Referring Provider Family Medicine; Visit Provider Nurse Practitioner Family | DX: N39.0 Urinary tract infection, site not specified (principal) | CPT/HCPCS: 87077; 87086; 87088; 87186 ==

== ENCOUNTER → 2021-05-31 09:48 | Outpatient (CLI) | payer OTHER, SELFPAY | PROVIDERS: PCP Family Medicine; Referring Provider Family Medicine; Visit Provider Family Medicine | DX: R69 Illness, unspecified (principal) ==

== ENCOUNTER 2021-07-19 17:34 | Outpatient (CLI) | payer OTHER, SELFPAY | END 2021-07-19 23:59 | disposition short-term general hospital (02) | PROVIDERS: PCP Family Medicine; Visit Provider Family Medicine | DX: U07.1 COVID-19 (principal) | CPT/HCPCS: 87635; U0003; U0005 ==

== ENCOUNTER 2021-07-31 07:52 | Outpatient (CLI) | payer OTHER, SELFPAY ==
[2021-07-31 07:59] VITALS: BP 122/75; PULSE 95; RESP 16; TEMP 36.5; O2SAT 96
[2021-08-01] MEDS: Cosyntropin 0.25 MG Vial IM (08:33)
== END 2021-07-31 23:59 | disposition short-term general hospital (02) ==
PROVIDERS: PCP Family Medicine; Referring Provider Internal Medicine Pulmonary Disease; Visit Provider Internal Medicine Pulmonary Disease
DX: Z79.899 Other long term (current) drug therapy (principal)
CPT/HCPCS: 36415; 82533; 96372; J0834

== ENCOUNTER 2021-08-06 16:29 | Outpatient (CLI) | payer OTHER, SELFPAY ==
--- NOTE | 2021-08-06 16:32 | RAD_ITS ---
EXAM: XR CERVICAL SPINE, 4 OR 5 VIEWS : 1975 CLINICAL INDICATION: NECK PAIN TECHNIQUE: Frontal, lateral and oblique views of the cervical spine. This report was created using CSS99 report generation technology. COMPARISON: None. FINDINGS: VERTEBRAE: Unremarkable. Preserved vertebral body height. No acute fracture. No spondylolisthesis. Preservation of the normal cervical lordosis. No significant facet arthropathy. DISC SPACES: There is mild disc space narrowing at C5-6. SOFT TISSUES: Unremarkable. No prevertebral soft tissue widening. LUNG APICES: Clear. OTHER FINDINGS: RAD/Cerv Spine 4 or 5 Views IMPRESSION: No acute osseous abnormalities. There are minimal degenerative changes with disc space narrowing at C5-6. at 1757 Reported and signed by: Tawanda Alexander MD Electronically Signed: Tawanda Alexander MD at 17:56 EST ,
== END 2021-08-06 23:59 | disposition short-term general hospital (02) ==
LOC: MTRAD 16:30
PROVIDERS: PCP Family Medicine; Referring Provider Family Medicine; Visit Provider Family Medicine
DX: M54.2 Cervicalgia (principal)
CPT/HCPCS: 72050

== ENCOUNTER 2021-10-11 10:00 | Outpatient (RCR) | payer OTHER, SELFPAY ==
--- NOTE | 2021-09-04 11:20 | HP.PTEVAL ---
Patient's Visit Information TIERRA PENA is a 46 year old F referred to Physical Therapy by Dr. Tatiana Sykes MD with a diagnosis of CERVICALALGIA. Date of Evaluation: 09/04/21 Physical Therapist: Kashmir Nelson PT, Cert MDT, OCS - Visit Plan Frequency: 2x /Week Duration: 4 Weeks Plan: PT INTERVETIONS CERVICAL ROM,THORACIC MOBLITY, POSTURAL STRENGTHENING ,MANUAL THERAPY STM AND MODALTIES NEED - Subjective This 46 y/o female presents to physical therapy cervical pain. Patient has had neck pain since Jun 2021. Initially, seen Family DR tried muscle relaxer ,Patient seen chiropractor tried manipulation did not help. Seen DR Guthrie did x-rays DDD. recommended DR Wilkinson ,did cortisone which helps. Want to do MRI but first try PT . Patient pain located T-T2. Patient has occasional tingling in arm left arm. Aggravating factors housework tasks ,flexion looking down, carrying buckets ,sitting looking at computer. Alleviating factors rest ,cortisone injections. Patient has RUSSELL . Denies nausea /dizziness .Symptoms affects sleeping. Today ,patient feels tightness. Patient condition affects QOL and function /job demands. Patient does have RA. Patient reports no h/o trauma. SOCIAL: . 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 PALPATION: tightness UT/levator/scapular. NEURO: denies paresthesia/tingling , reflexes C5-6-7 2/3. AROM: BUE WFL. MMT: grossly 4/5. BEAUTY SPECIALIST STRENGTH: 70#. CERVICAL ROM: flexion WFL ,extension min/mod loss, lateral flexion/rotation min with tightness - Special Tests C/S Radiculapathy - Left Upper limb tension test: Negative C/S Radiculapathy - Right Upper limb tension test: Negative C/S Radiculapathy - Left Spurlings: Negative C/S Radiculapathy - Right Spurlings: Negative C/S Radiculapathy - Left Cervical distraction: Negative C/S Radiculapathy - Right Cervical distraction: Negative C/S Radiculapathy - Left Relief test: Negative C/S Radiculapathy - Right Relief test: Negative Sharp Neal: Negative Vertebral Artery Test: Negative Alar Ligament Test: Negative Cervical Sitting: Protrusion - Mechanical Response: No effect Cervical Sitting: Protrusion - Symptoms During Testing: No effect Cervical Sitting: Protrusion - Symptoms After Testing: No effect Cervical Sitting: Retraction - Mechanical Response: No effect Cervical Sitting: Retraction - Symptoms During Testing: No effect Cervical Sitting: Retraction - Symptoms After Testing: No effect Cervical Sitting: Retraction-Extension - Mechanical Response: No effect Cerv Sitting: Retraction-Extension - Symptoms During Testing: No effect Cerv Sitting: Retraction-Extension - Symptoms After Testing: No effect Cervical Sitting: Sidebend Right - Mechanical Response: No effect Cervical Sitting: Sidebend Right - Symptoms During Testing: No effect Cervical Sitting: Sidebend Right - Symptoms After Testing: No effect Cervical Sitting: Sidebend Left - Mechanical Response: No effect Cervical Sitting: Sidebend Left - Symptoms During Testing: No effect Cervical Sitting: Sidebend Left - Symptoms After Testing: No effect Cervical Sitting: Rotation Right - Mechanical Response: No effect Cervical Sitting: Rotation Right - Symptoms During Testing: No effect Cervical Sitting: Rotation Right - Symptoms After Testing: No effect Cervical Sitting: Rotation Left - Mechanical Response: No effect Cervical Sitting: Rotation Left - Symptoms During Testing: No effect Cervical Sitting: Rotation Left - Symptoms After Testing: No effect Cervical Sitting: Flexion - Mechanical Response: No effect Cervical Sitting: Flexion - Symptoms During Testing: No effect Cervical Sitting: Flexion - Symptoms After Testing: No effect - Balance/Special Test Scores Oswestry Neck Score: 16 - Goals Goal 1:: Patient to be I with HEP Goal Time Frame: 4-6 Weeks Goal 2:: Patient to improve posture for ADL's 80% of the time. 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 Goal Time Frame: 4-6 Weeks Goal 5:: Patient to improve neck oswesrty by 5 points to improve function Goal Time Frame: 4-6 Weeks - Rehabilitation Potential Physical Therapy Diagnosis: This patient has cervical pain with pain with positioning and motion testing worse with faulty posture and flexion better with posture and extension thus benefit from skilled PT Rehabilitation Potential: Good - Anticipated Interventions Patient/Client Instruction: Educate patient on: Condition, Plan of Care For the Purpose of:: To decrease pain, To increase ROM, To improve muscle performance and motor function, To improve ability to perform ADL's, To increase tolerance to activity/condition/position, To improve ability of physical actions for home/community/work/leisure, To decrease soft tissue restriction, To increase flexibility/ROM, To reduce risk of recurrence Therapeutic Exercise to Include: Strength training, Postural training, Flexibilty training, Active ROM For the Purpose of:: To decrease pain, To increase ROM, To improve muscle performance and motor function, To increase tolerance to activity/condition/position, To improve ability of physical actions for home/community/work/leisure Manual Therapy Techniques to Include: Soft tissue mobilization For the Purpose of:: To decrease pain, To increase ROM, To improve health of tissue, To decrease soft tissue restriction, To increase flexibility/ROM TENS: Yes IF ES: Yes Cryotherapy (ice pack, ice massage): Yes Thermo therapy (hot pack): Yes Ultrasound (thermal/non thermal): Yes For the Purpose of:: To decrease pain, To increase ROM, To improve nutrient delivery to tissue, To increase oxygenation perfusion, To improve health of tissue, To decrease soft tissue restriction Thank you for the opportunity to evaluate your patient. For Medicare and Medicare HMO plans, please review the plan of care and approve it. It will need to be FAXED BACK to us at [phone] for Medicare purposes. For Medicare only, by signing this I certify the plan of care. Please let me know if there are questions or concerns regarding this plan of care. Physician Signature: Date:
--- NOTE | 2022-02-14 11:22 | HP.PTDCSUM ---
It has been my pleasure to treat TIERRA PENA referred by Dr. Tatiana Sykes MD, with the diagnosis of CERVICALALGIA for a total of 9 visit(s). Discharge Date: Please see the following information for a summary of their discharge status. Subjective: Doing okay about same Bilateral Neck Pain Intensity (Out of 10): 3 % Improvement: 30 Objective/Function: Ewa ex's well no increase pain appropriate fatigue. improved cervical ROM pain same Goal 1:: Patient to be I with HEP Goal 2:: Patient to improve posture for ADL's 80% of the time. 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 Goal 5:: Patient to improve neck oswesrty by 5 points to improve function Plan: RTD .POSSIBLE MRI If there are questions or concerns regarding this patient's physical therapy, please feel free to call me at [phone]. Thank you for the referral of this patient. Sincerely, Kashmir Nelson, PT, Cert MDT, OCS Balance/Gait/Functional tests - Balance/Special Test Scores Oswestry Neck Score: 13
== END 2021-10-11 19:00 | disposition home or self-care (01) ==
LOC: PT 10:00
PROVIDERS: PCP Family Medicine; Referring Provider Anesthesiology Pain Medicine; Visit Provider Anesthesiology Pain Medicine
DX: M54.2 Cervicalgia (principal)
CPT/HCPCS: 97035; 97110; 97162

== ENCOUNTER 2021-10-16 08:22 | Outpatient (CLI) | payer OTHER, SELFPAY ==
--- NOTE | 2021-10-16 08:29 | CT_ITS ---
STUDY: CT CHEST WITHOUT CONTRAST REASON FOR EXAM: Female, 46 years old. Follow-up for lung nodule. RADIATION DOSAGE (If Supplied By Facility): CTDIvol = ( 13.00 ) mGy, DLP = ( 454.64 ) mGycm TECHNIQUE: Transaxial imaging was performed without the administration of intravenous contrast material. Multiplanar coronal and sagittal images were reformatted. Individualized dose optimization techniques were used for this CT. COMPARISON: Comparison is made with prior study 10/15/2020. FINDINGS: Stable 3 mm noncalcified nodule in the posterior medial aspect of the right lower lobe as seen on axial image #63. Stable punctate nodule in the posterior medial aspect of the right lower lobe as seen on axial image #61. Stable 3 mm nodule in the right lower lobe as seen on axial image #50. There is no demonstrated pleural abnormality. Normal heart and pericardium. Normal mediastinum. Normal hilar regions. Normal unenhanced pulmonary arteries. Normal aorta arch and descending thoracic aorta. There are mild degenerative changes of the thoracic spine. There is no demonstrated abnormality of the visualized upper abdomen. CT/Chest without Contrast IMPRESSION: Stable examination. Twelve-month follow-up is recommended. Electronically Signed: Jerome Fay MD at 10:43 EDT ,
== END 2021-10-16 23:59 | disposition home or self-care (01) ==
LOC: CT 08:22
PROVIDERS: PCP Family Medicine; Visit Provider Internal Medicine Pulmonary Disease
DX: R91.8 Other nonspecific abnormal finding of lung field (principal)
CPT/HCPCS: 71250

== ENCOUNTER 2021-10-24 14:18 | Outpatient (CLI) | payer OTHER, SELFPAY ==
[2021-10-24 18:24] LABS: Erythrocyte Sedimentation Rate 5 mm/hr (0-30)
[2021-10-24 18:46] LABS: CRP < 2.90 mg/L (0.0-3.0)
== END 2021-10-24 23:59 | disposition home or self-care (01) ==
PROVIDERS: PCP Family Medicine; Referring Provider Family Medicine; Visit Provider Internal Medicine Pulmonary Disease
DX: J84.111 Idiopathic interstitial pneumonia, not otherwise specified (principal); M06.89 Other specified rheumatoid arthritis, multiple sites
CPT/HCPCS: 36415; 85652; 86140

== ENCOUNTER 2021-12-17 11:08 | Observation (INO) | payer OTHER, SELFPAY ==
--- NOTE | 2021-12-05 11:52 | EKG12_ITS ---
Test Reason : PRE-OP Blood Pressure : / mmHG Vent. Rate : 072 BPM Atrial Rate : 072 BPM P-R Int : 142 ms QRS Dur : 082 ms QT Int : 392 ms P-R-T Axes : 013 015 008 degrees QTc Int : 429 ms Normal sinus rhythm Normal ECG Confirmed by LETICIA ALICEA, HEMANT ([id number]), fan mail editor LEE PAK ([id number]) on 12/06/2021 8:20:57 AM Referred By: Gerardo Guthrie Confirmed By:HEMANT KELLY MD
[2021-12-05 14:51] LABS: Absolute Lymphocyte Count 1.76 X10^3/uL (0.83-4.51); Absolute Neutrophil Count 3.5 X10^3/uL (2.0-7.7); Basophil# 0.04 X10^3/uL; Basophil% 0.7 % (0-1); Eosinophil# 0.24 X10^3/uL; Hematocrit 35.8 % (37-47); Hemoglobin 12.1 g/dL (12.0-15.0); Lymphocyte # 1.76 X10^3/ul (0.83-4.51); Mean Corp Hgb Conc 33.8 g/dL (32-36); Mean Corpuscular Hgb 31.3 pg (27.0-32.0); Mean Corpuscular Volume 92.7 fL (81-99); Mean Platelet Vol. 10.7 fl (6.2-12.0); Monocyte% 8.2 % (0-10); NRBC Flagged by Analyzer 0 % (0-5); Neutrophil # 3.52 X10^3/uL (2.7-7.7); Neutrophil % 57.9 % (47-70); Platelet Count 257 K/mm3 (150-450); RBC Distribution Width CV 12.6 % (11.6-14.6); RBC Distribution Width SD 42.6 fl (35.1-43.9); Red Blood Count 3.86 M/mm3 (4.2-5.4); White Blood Count 6.1 K/mm3 (4.4-11.0)
[2021-12-05 17:11] LABS: Magnesium 1.9 mg/dL (1.6-2.6)
[2021-12-05 17:15] LABS: Anion Gap 8 (5-15); BUN 12 mg/dL (7-18); BUN/Creat Ratio 19.7 RATIO (10-20); Calcium,Total 8.8 mg/dL (8.5-10.1); Chloride 104 mmol/L (98-107); Creatinine, Serum 0.61 mg/dL (0.55-1.02); EST Glomerular Filtration Rate 112 mL/min (>60); Est Glom Filt Rate - Afr Amer 136 mL/min (>60); Glucose 100 mg/dL (74-106); Potassium 3.6 mmol/L (3.5-5.1); Sodium Level 138 mmol/L (136-145)
[2021-12-07 11:37] LABS: Hepatitis A AB, Total Negative (Negative)
[2021-12-07 15:45] LABS: HIV - WCH Non-Reactive (Nonreactive); Hepatitis B Surface Antibody Non-Reactive; Hepatitis C Antibody Non-Reactive (Nonreactive)
--- NOTE | 2021-12-16 15:04 | HP.PCM_ITS ---
History and Physical Date of Admission: 12/17/21 [facility] [address] [facility] [address] [place] [address] [phone] OFFICE V MR#:[id number]: GEORGIA PENAep #[id number] Provider:Dr. Gerardo Guthrie DOAge/Sex: 46/F Location:[facility] [place] OSStatus:Signed Intake Vital Signs 13:40 Height 5 ft 3 in Weight: 180 lb BMI 31.8 Intake Visit Reasons: Cervical spine Chief Complaint: neck and upper back Accompanied by: self Is patient in pain?: Yes Pain scale (1-10): 7 Allergies No Known Allergies Allergy (Verified 07/24/21 11:31) [facility] History (Updated 08/19/21 @ 14:[address] Gerardo Guthrie DO) Anemia Rheumatoid arthritis Surgical History h/o finger surgery S/P s/p tonsillectomy S/P tubal ligation Family History Father Colon cancer Son Asthma Social History (Updated 01/03/20 @ 09:[address] Lexus Lang, [place]) Smoking Status: Never smoker alcohol intake: current alcohol intake frequency: holidays/special occasions only HPI Cervical spine Details: Parts of this documentation were recorded by a scribe, this documentation accurately reflects the service provided and the decisions made by me, Dr. Gerardo Guthrie DO GEORGIA PENA is a 46 year old F here today for cervical pain that she has had for about 1 month. Denies any injury. She states that she has been getting migraines/headaches, she states that she has only had 1 migraine and she is getting a headache almost daily. She also has tried Lidocaine patches, biofreeze, Tylenol and Ibuprofen which is not effective. Denies any PT. Her PCP Dr. Cerda had given her muscle relaxer which did not help. She also had xrays. She has also tried massotherapy and care coordinator which was not effective. She states that she has localized midline cervical pain and the chiropractor told her the level is T1. Denies any injury to the cervical spine. Denies any hx of MVAs. Denies any surgery or injections of the cervical spine. Georgia Palmer is a delightful young lady 46 years old has a chief complaint of pain in her neck over only 1 specific spot. It does not radiate anywhere up or down or into the back of the shoulders or down the shoulders or into the arms. This has been going on for about a month it was insidious in onset. There was no injury of any type. Was no change in behavior or physical activities. She simply noticed it 1 day and is just as bad now as it was when it started. But again the area is very localized to an area no bigger than the size of a nickel. She has never had it before. She does get headaches since this started that sometimes start in the back of the head and go up the occipital region. It all seems to stem from that spot. Is describing some sort of a cervical tension cephalgia. On examination she is totally neurologically intact. She has no muscle atrophy she has excellent motor strength of all the major muscle groups of both upper and lower extremities. She is extremely tender at one spot. I cannot tell whether it is between the spinous process of C5 and 6 or the spinous process of C6-7 or C7-T1. It is one of the 3. The area is very small and extremely tender to palpation between those 2 spinous processes. She has no long tract signs. Clonus is absent Babinski's are downgoing. I called and discussed the case with him by phone. When she goes to see him she will show him exactly where the spot is and he will inject it right there with some type of a steroid and anesthetic. I told her to make sure that it sore when she goes in and to remember what it feels like when she bends her head down which is what seems to trigger it when she leaves. She is to see me 2 weeks after she has the injection. I told her for now we will hold off on any MRI scans as I do not think that it is directly from the spine in and of itself. I did note on plain x-rays that she does have a decrease disc base with mild degenerative changes at C5-6. Coding Level of Care Code Off vis,new,level 3 Diagnoses Neck pain M54.2
[2021-12-17] VITALS (11 sets, daily range): BP systolic 115–151; BP diastolic 63–86; PULSE 85–100; RESP 14–19; TEMP 35.7–36.8; O2SAT 94–100; BMI 29.2
--- NOTE | 2021-12-17 | DISC_PTH ---
PATIENT: TIERRA PENA LOC: MS3 U#:[id number] AGE/SX: 46/F [place] [facility] [place]17[place]: Dr. Gerardo Guthrie DO : 1975 BED: 1 DIS: 12/18/2021 SPEC #: [id number] RECD: 12/17/21 12:45 STATUS: JORDANA REBrad #: [id number] BETTY: 12/17/21 00:[address]: Gerardo Guthrie DEPT: SURGICAL PATHOLOGY RECD BY: Walter Ramey ENTERED: 12/17/21 12:46 SP TYPE: DISC OTHR DR: Dr. Jose Luis Alegria MD Tissues: Intervertebral disc, NOS Procedures: Surgery Specimen Level III HEADER OPERATION: ERAS, anterior cervical fusion C5-6 PRE-OP DIAGNOSIS: Neck pain TISSUE SUBMITTED: Cervical disc MICROSCOPIC DIAGNOSIS Vertebral disc, C5-6, discectomy: Fragments of intervertebral disc with degenerative change. AM:rudy 12/18/2021 MICROSCOPIC DESCRIPTION Slides are reviewed. GROSS DESCRIPTION Received in fixative is one container labeled with the patient's name and designated cervical disc. The specimen consists of multiple fragments of rivas, indurated tissue that in aggregate measure 3 x 2.5 x 0.3 cm. The specimen is totally submitted in one cassette. / SJ:rudy 12/17/2021 TC:5 CPT: 57685
[2021-12-17] MEDS: Acetaminophen 500 MG Tablet 1000 MG PO ×3 (06:11→21:20)
[2021-12-17] MEDS: Lactated Ringers 1,000 ML 15 ML IV ×2 (06:18→10:00)
[2021-12-17] MEDS: dexAMETHasone 10 MG/ML Vial 8 MG PO.IVFORM (06:20)
[2021-12-17 06:55] LABS: Bedside Glucose 89 mg/dL (74-106)
--- NOTE | 2021-12-17 07:15 | RAD_ITS ---
STUDY: X-RAY - CERVICAL SPINE REASON FOR EXAM: Female, 46 years old. ANTERIOR FUSION C5-C6 TECHNIQUE: 1 view(s) of the cervical spine were obtained. COMPARISON: None FINDINGS: The localization instrument is seen along the anterior aspect of the C5-C6 disc space level. RAD/Spine 1 View Any Level IMPRESSION: The localization instrument is seen along the anterior aspect of the C5-C6 disc space level. Electronically Signed: Jerome Fay MD at 10:39 EDT ,
[2021-12-17] MEDS: Cefazolin 2 GM in 0.9% Normal Saline 100 ML IV (07:49)
[2021-12-17] MEDS: Heparin 10,000 UNITS/10 ML Vial 10000 UNITS (08:30)
[2021-12-17] MEDS: THROMBIN (RECOMBINANT) 20,000 UNIT VIAL 20000 UNIT TOPICAL (08:30)
--- NOTE | 2021-12-17 09:20 | RAD_ITS ---
STUDY: X-RAY - CERVICAL SPINE REASON FOR EXAM: Female, 46 years old. ANTERIOR FUSION C5-6 -- image 2 TECHNIQUE: 1 view(s) of the cervical spine were obtained. COMPARISON: None FINDINGS: The localization instrument is seen along the anterior aspect of the C6-C7 disc space level. RAD/Spine 1 View Any Level IMPRESSION: The localization instrument is seen along the anterior aspect of the C6-C7 disc space level. Electronically Signed: Jerome Fay MD at 11:00 EDT ,
--- NOTE | 2021-12-17 09:20 | RAD_ITS ---
STUDY: X-RAY - CERVICAL SPINE REASON FOR EXAM: Female, 46 years old. ANTERIOR FUSION C5-6 -- image 3 TECHNIQUE: 1 view(s) of the cervical spine were obtained. COMPARISON: None FINDINGS: The localization instrument is seen along the anterior aspect of the C5-C6 level. RAD/Spine 1 View Any Level IMPRESSION: The localization instrument is seen along the anterior aspect of the C5-C6 disc space level. Electronically Signed: Jerome Fay MD at 11:01 EDT ,
--- NOTE | 2021-12-17 09:35 | RAD_ITS ---
STUDY: X-RAY - CERVICAL SPINE REASON FOR EXAM: Female, 46 years old. ANTERIOR FUSION, C5-6 TECHNIQUE: 1 view(s) of the cervical spine were obtained. COMPARISON: 08/06/2021 FINDINGS: Normal anterior atlantoaxial articulation. Normal odontoid process. Interval anterior cervical discectomy and fusion at C5/C6 with anatomic alignment. Normal vertebral bodies and endplates. Normal disc space heights. Normal visualized intervertebral neuroforamina. The soft tissue structures are unremarkable. RAD/Spine 1 View Any Level IMPRESSION: Interval anterior cervical discectomy and fusion at C5/C6 with anatomic alignment. Electronically Signed: Pietro Carcamo MD at 8:22 EDT ,
--- NOTE | 2021-12-17 11:16 | PCM.OPRPT ---
Report of Operation Date of Procedure: 12/17/21 Description of Surgical Findings:: Preoperative diagnosis: Herniated disc with foraminal stenosis C5-6 on the left Postoperative diagnosis: The same Procedures: #1 anterior cervical interbody fusion C5-6 CPT code 48035 #2 application of anterior spine plate C5-6 CPT code 50537/59 #3 insertion of titanium cage C5-6 CPT code 84164 Surgeon: Dr. Guthrie nurse assistant: Lory Purdy NP Second Coordinate Measuring Machine Operator: Marilee ARDON Anesthesia: General endotracheal anesthesia administered by [facility] EBL: Less than 20 cc Drains: 1/4 inch [place] Complications: None Procedure: Patient was taken to the OR where she was placed in the supine position on the operating table. She was then placed under general endotracheal anesthesia. A Khan catheter was inserted by nursing. Neuro monitoring placed their leads on the patient. After appropriate positioning the neck and right crest area were prepped and draped in standard fashion. Started by obtaining her BMA from the right iliac crest. Small puncture incision was made with a 15 blade and the [employer] needle was inserted through that small opening so as to not go through the skin itself and tamped into the anterior superior iliac spine. 60 cc of bone marrow aspirate were obtained. This was handed off to the camera technician in the room which spun down the blood on her special centrifuge the stem cells and concentrated them about 10 times and gave them back to us. I made a transverse incision in one of the patient's normal creases along Langers lines. Taken near the edge of the right sternocleidomastoid muscle. Subcutaneous tissues were incised length of the skin incision. I then undermined the subcutaneous tissue in a cephalad and caudad direction. The platysma was then split longitudinally in line with its fibers. Note she had a very large vein that had a bifurcation right in the operative field. I decided to take the vein lateralward and the branch that went medial was then tied off with 3-0 silk and the edge cauterized. Allowed me to pull the larger vein to the lateral side. Then exploited the cervical planes first exploiting the superficial cervical fascia followed by the exploitation of the pretracheal fascia. And then DUGLAS Sampson I was able to retract the trachea and esophagus to the left the carotid which was protected to the right identified the disc space thought to be either 5 6 or 6 7 we were not sure that we put a small needle in it took an intraoperative x-ray and found that it was 6 7 we then moved it up 1 level took another x-ray to confirm that it was indeed 5 6. Then cauterized the anterior disc to marked I then cauterized the coli muscles on either side and elevated them gently off the disc base. We then put the self-retaining business services analyst retractors in place sideways and up and down. This gave us good reasonable access to C5-6. Cauterized the anterior longitudinal ligament and periosteum above and below the disc base to allow for the plate. Then began removing disc from within the disc base with pituitary rongeurs I then put a distractor on the right side distracting the left as the space was quite diminished. I first removed the cartilage off both endplates with sharp curettes. Using a myrna bur I then had to open the foramen on the left side by burring the uncinate process that was enlarged given her the stenosis he also had a small disc protrusion there. This was removed with the curettes. The remaining thin us shell of bone was removed with curettes also. This completely decompresses the C6 nerve root on the left side. I checked it with a nerve hook was found to be quite open. We did the same exact thing on the right side even though she did not have any right arm pain to speak of she did have some foraminal stenosis they are not as bad but we went ahead and opened in the same fashion. Then removed all remaining cartilage off both endplates. A bur was used to bur the anterior small ellipse to make them flat. I also used a bur to flatten both sides of the C6 vertebra and make room for a large cage. We settled on a 7 mm large cage. It was 14 deep and 16-1/2 wide. We then use bone morphogenic protein filled the cage with it note that this was the spongy type it was then soaked in patient's own concentrated stem cells. With anesthesia pulling on the head we then tamped it into place and countersunk it a couple of millimeters. We then used a 24 mm plate centered at put [address] followed by the use of the awl on the opposite side of the plate use the awl to punch a hole and entered the 14 mm screw. I then remove the pin from the right side and also use another 14 mm screw and put the other 2 screws in C5 the same technique. Punching with the all 4 but insertion of the 14 mm screws at both sides. This was seen on a lateral x-ray taken in the OR was found to be excellent with good position of the plate the screws and the cage. We thoroughly irrigated frequently in the course of the case to prevent infection. Then put a 1/4 inch [place] drain in place the platysma was approximated using a running stitch with 5-0 Vicryl for closure of subcutaneous tissues with 5-0 Vicryl in interrupted fashion. This approximated the skin there was no need for outside stitches. Sterile dressings were then applied and a safety pin was placed through the drain to prevent suction into the bone. This is the end of operative summary on Georgia Malcolm. This is Dr. Guthrie dictating.
[2021-12-17] MEDS: dexAMETHasone 4 MG/ML Vial IV ×2 (12:02→17:34)
[2021-12-17] MEDS: Lactated Ringers 1,000 ML 100 ML IV ×2 (13:21→23:50)
--- NOTE | 2021-12-17 13:23 | PCM.CONS.GEN ---
Assessment & Plan Assessment/Plan (1) Cervical (neck) region somatic dysfunction: (2) Foraminal stenosis of cervical region: PLAN: #Cervical stenosis of C5-6 s/p anterior cervical interbody fusion of C5-6 with aplication of anterior spine plate and insrtion of titanium cage pain is well controlled; pain management as per primary team management as per primary service- spine surgery PT/OT on board fall precautions encourage incentive spirometry use #Hyperlipidemia; on statin #Rheumatoid arthritis: on Abatacept injection weekly. DVT prophylaxis: as per primary team Thank you for the consult. We will continue to follow with you. HPI Consult Data Date of Consult: 12/17/21 HPI Narrative Reason for Consultation: medical management HPI Narrative: TIERRA PENA, is a 46 F who was admitted to the service of the spine surgery team after she presented with a complaint of neck pain which she had had for about a month prior to admission. She had been getting associated migraines anad headache, which was not relieved by lidocaine, tylenol or ibuprofen. She was diagnosed with herniated disc with foraminal stenosis of C5-6 on the left, and she had an anterior cervical interbody fusion of C5-6 with application of anterior spine plate and insertion of titanium cage. Hospitalist service was consulted for medical management. Patient was seen after surgery. Her significant other was by her bedside, and she had no active complaints. Pain was well controlled.Review of systems was otherwise negative. She had remained hemodynamically stable. REPLACED BY [facility] Medical History (Updated 12/05/21 @ 08:15 by Ita Obrien) Anemia Heartburn High cholesterol Rheumatoid arthritis Home Medications naproxen sodium 220 mg capsule 220 mg PO BID PRN 11/29/18 [History Last Taken 12/16/21] cholecalciferol (vitamin D3) 1,000 unit PO DAILY 12/20/18 [History Last Taken 12/16/21] abatacept [Orencia ClickJect] 125 mg SUBCUT QWEEK 12/05/21 [History Last Taken 12/16/21] ascorbic acid (vitamin C) [Vitamin C] 1,000 mg PO DAILY 12/05/21 [History Last Taken 12/16/21] coenzyme Q10 [CoQ-10] 100 mg PO DAILY 12/05/21 [History Last Taken 12/16/21] diphenhydramine HCl [Sleep Aid (diphenhydramine)] 25 mg PO QHS PRN 12/05/21 [History Last Taken 12/16/21] mecobalamin (vitamin B12) [B12 Active] 1,000 mcg PO DAILY 12/05/21 [History Last Taken 12/16/21] rosuvastatin [Crestor] 10 mg PO DAILY 12/05/21 [History Last Taken 12/16/21] vitamin A 2,400 mcg PO DAILY 12/05/21 [History Last Taken 12/16/21] Allergy/AdvReac Type Severity Reaction Status Date / Time No Known Allergies Allergy Verified 12/17/21 06:02 Family History Father Colon cancer Son Asthma Surgical History (Updated 12/05/21 @ 08:15 by Ita Obrien) h/o finger surgery History of endometrial ablation S/P s/p tonsillectomy S/P tubal ligation Social History (Updated 01/03/20 @ 09:[address] Lexus Lang, JOHAN) Smoking Status: Never smoker alcohol intake: current alcohol intake frequency: holidays/special occasions only ROS Constitutional Constitutional: Denies anorexia, chills, fatigue, fever(s), malaise or weakness Eyes Eyes: Denies change in vision ENT HEENT: Denies dysphagia or headache(s) Cardiovascular Cardiovascular: Denies chest pain, dyspnea on exertion, lightheadedness, orthopnea or palpitations Respiratory/Chest Respiratory/Chest: Denies cough, productive cough or shortness of breath with exertion Gastrointestinal Gastrointestinal: Denies abdominal pain, diarrhea, nausea or vomiting Genitourinary Genitourinary: Denies dysuria Musculoskeletal Musculoskeletal: Denies back pain, joint pain or joint swelling Neurologic Neurologic: Denies confusion, dizziness, focal weakness, headache(s), numbness, seizure-like activity, syncope or tremor(s) Psychiatric Psychiatric: Denies anxiety or depression Hematologic/Lymphatic Hematologic/Lymphatic: Denies anemia Physical Exam Const alert and oriented x3 General Appearance: cooperative HEENT normocephalic, head/scalp atraumatic and hearing grossly normal bilaterally HEENT Narrative: neck collar in place Eyes PERRL, EOMs intact bilaterally and conjunctivae normal Neck no lymphadenopathy, supple and no JVD Resp normal respiratory effort, no retractions, no use of accessory muscles and clear to auscultation bilaterally Cardio regular rate, regular rhythm, S1 normal heart sound and S2 normal heart sound GI normal to inspection, nondistended, normoactive bowel sounds, soft to palpation, non-tender and non-distended Extremity normal to inspection, full ROM and no clubbing, cyanosis or edema Skin no rashes or lesions noted Neuro oriented x3, CN's II-XII intact bilaterally and moves all extremities Sensorium / Orientation: awake and alert Psych affect normal Lab / Micro Data Result Diagrams: 12/05/21 13:33 12/05/21 13:33 Labs: Laboratory Results - last 24 hr 12/17/21 06:00: POC Glucose 89 Radiology Impression Spine X-Ray 12/17/21 07:15 IMPRESSION: The localization instrument is seen along the anterior aspect of the C5-C6 disc space level. Electronically Signed: Jerome Fay MD at 10:39 EDT , Charges/Coding Visit Charges Office Visits / Consults: [id number] IP Consult L4
[2021-12-17] MEDS: Morphine 4 MG/ML Syringe IV ×2 (14:19→17:55)
[2021-12-17] MEDS: Ensure Surgery 237 ML LIQUID PO (15:21)
[2021-12-17] MEDS: oxyCODONE 5 MG Tablet PO (15:21)
[2021-12-17] MEDS: Cefazolin 1 GM/50 ML BAG IV ×2 (15:21→23:50)
[2021-12-17] MEDS: Ondansetron 4 MG/2 ML Vial IV (17:34)
[2021-12-17] MEDS: 0.9% Saline Lock 10 ML Syringe IV (17:35)
[2021-12-17] MEDS: Zolpidem Tartrate 5 MG Tablet PO (21:20)
[2021-12-17] MEDS: dexAMETHasone 4 MG/ML Vial 2 MG IV (23:50)
[2021-12-18 01:12] VITALS: BP 125/71; PULSE 97; RESP 18; TEMP 36.6; O2SAT 99
[2021-12-18 05:38] VITALS: BP 117/58; PULSE 98; RESP 18; TEMP 36.6; O2SAT 100
[2021-12-18] MEDS: dexAMETHasone 4 MG/ML Vial 2 MG IV (05:48)
[2021-12-18] MEDS: Acetaminophen 500 MG Tablet 1000 MG PO ×2 (05:49→13:48)
--- NOTE | 2021-12-18 07:41 | PN.HOSP_ITS ---
Subjective Subjective Feels well post operatively. Objective Data Objective Data Vital Signs: Vital Signs Temp Pulse Resp BP Pulse Ox 36.6 C 98 18 117/58 L 100 12/18/21 05:38 12/18/21 05:38 12/18/21 05:38 12/18/21 05:38 12/18/21 05:38 Oxygen Flow Rate (L/min) 2 Oxygen Delivery Method Room Air Weight: 74.843 kg Body Mass Index (BMI) 29.2 Intake & Output: Intake and Output for Last 24 Hours 12/16/21 12/17/21 12/18/21 23:59 23:59 23:59 Intake Total 2664 / 2664 1050 / 1050 Output Total 1530 / 1530 2900 / 2900 Balance 1134 / 1134 -1850 / -1850 Lab / Micro Data Result Diagrams: 12/05/21 13:33 12/05/21 13:33 Micro: Microbiology 12/05/21 13:33 Interface Orders Nasal Screen MRSA/MSSA - Final Radiography Diagnostic Testing: Radiology Impression Spine X-Ray 12/17/21 07:15 IMPRESSION: The localization instrument is seen along the anterior aspect of the C5-C6 disc space level. Electronically Signed: Jerome Fay MD at 10:39 EDT , Physical Exam Const alert and no apparent distress Neck Neck Narrative: wearing a soft c-collar Resp normal respiratory effort, no retractions, no use of accessory muscles and clear to auscultation bilaterally Cardio regular rate, regular rhythm, S1 normal heart sound and S2 normal heart sound GI normal to inspection, nondistended, normoactive bowel sounds, soft to palpation, non-tender and non-distended Assessment & Plan Assessment/Plan (1) Cervical (neck) region somatic dysfunction: (2) Foraminal stenosis of cervical region: PLAN: #Cervical stenosis of C5-6 * s/p anterior cervical interbody fusion of C5-6 with aplication of anterior spine plate and insrtion of titanium cage * pain is well controlled; pain management as per primary team * management as per primary service- spine surgery * PT/OT on board * fall precautions * encourage incentive spirometry use * #Hyperlipidemia; on statin #Rheumatoid arthritis: on Abatacept injection weekly. DVT prophylaxis: as per primary team Medically stable for discharge. Will sign off. Please reconsult if new issues arise. Charges/Coding Visit Charges Inpatient E&M: 99876 Subs Hosp L2
[2021-12-18 07:45] VITALS: BP 114/61; PULSE 92; RESP 18; TEMP 36.8; O2SAT 100
[2021-12-18] MEDS: Ascorbic Acid 500 MG Tablet 1000 MG PO (09:51)
[2021-12-18] MEDS: Cholecalciferol (VIT D3) 25 MCG TABLET (1,000 UNITS) PO (09:51)
[2021-12-18] MEDS: oxyCODONE 5 MG Tablet PO (09:54)
--- NOTE | 2021-12-18 10:54 | DCINST_ITS ---
Discharge Instructions Follow Up Care Test Results: Test results from this visit will be discussed in further detail at your follow-up appointment, if applicable. Discharge Plan Admission Admit Date/Time: 12/17/21 11:08 Primary Reason for Your Visit: cervical fusion Attending Provider: Gerardo Guthrie Primary Care Provider: Jose Luis Alegria Consulting Providers: Paula Cherry ; Adam Parker Discharge Orders/Prescriptions Prescriptions: No Action naproxen sodium [Aleve] 220 mg capsule 220 mg PO BID PRN (Reason: Pain) RF: 0 cholecalciferol (vitamin D3) 1,000 UNIT tablet 1,000 unit PO DAILY RF: 0 vitamin A 2,400 mcg Capsule 2,400 mcg PO DAILY RF: 0 ascorbic acid (vitamin C) [Vitamin C] 500 mg Tablet 1,000 mg PO DAILY RF: 0 diphenhydramine HCl [Sleep Aid (diphenhydramine)] 25 mg Capsule 25 mg PO QHS PRN (Reason: Insomnia) RF: 0 coenzyme Q10 [CoQ-10] 100 mg Capsule 100 mg PO DAILY RF: 0 rosuvastatin [Crestor] 10 mg Tablet 10 mg PO QHS RF: 0 Orencia ClickJect 125 mg/mL auto-injector 125 mg SUBCUT QWEEK RF: 0 B12 Active 1,000 mcg Tablet,Chewable 1,000 mcg PO DAILY RF: 0 Other Ambulatory Orders: 12 Lead EKG (Routine) Timeframe: 20211205 Location: None Selected Ordered By: Dr. Gerardo Guthrie Referrals / Follow Up: Jose Luis Alegria MD [Primary Care Provider] - Disposition Disposition (needs filled in before D/C Order can be placed): Home, Self Care
--- NOTE | 2021-12-18 10:56 | PCM.DC.SUM ---
Providers Date of Admission: 12/17/21 Primary Care Physician: Dr. Jose Luis Alegria MD Consultations 12/17/21 11:20 Consult: Hospitalist Routine Consulting Provider: Paual Cherry Reason for Consult: med management EMERGENT Consult: No MD Notified: Yes Date Notified: 12/17/21 Time Notified: 13:30 Method of Notification: Text Reason For Visit: ANTERIOR CERVICAL FUSION Diagnosis Discharge Diagnosis (1) Cervical (neck) region somatic dysfunction: Status: Acute Code(s): M99.01 - Segmental and somatic dysfunction of cervical region (2) Foraminal stenosis of cervical region: Status: Acute Code(s): M48.02 - Spinal stenosis, cervical region Medications at Discharge Home Medications naproxen sodium 220 mg capsule 220 mg PO BID PRN 11/29/18 cholecalciferol (vitamin D3) 1,000 unit PO DAILY 12/20/18 abatacept [Orencia ClickJect] 125 mg SUBCUT QWEEK 12/05/21 ascorbic acid (vitamin C) [Vitamin C] 1,000 mg PO DAILY 12/05/21 coenzyme Q10 [CoQ-10] 100 mg PO DAILY 12/05/21 diphenhydramine HCl [Sleep Aid (diphenhydramine)] 25 mg PO QHS PRN 12/05/21 mecobalamin (vitamin B12) [B12 Active] 1,000 mcg PO DAILY 12/05/21 rosuvastatin [Crestor] 10 mg PO QHS 12/05/21 vitamin A 2,400 mcg PO DAILY 12/05/21 Hospital Course Summary of Care Provided Hospital Course: Georgia Gaston was admitted yesterday. She underwent anterior cervical fusion at the C5-6 level. She tolerated the procedure well. Today on rounds she is doing well her left arm pain is almost all gone her right arm pain is gone also her swallowing is a bit difficult but tolerable. Her voice is clear. I change the dressing and the drain was removed. Incision is dry and healing well. I gave her postoperative instruction regarding cervical fusions. She knows when to shower she knows when to remove the drain she already has a date to come and see me at the office. We will go home on oxycodone 5 mg to use for a few days. This is the end of discharge summary on Georgia Malcolm. This is Dr. Guthrie dictating. Weight / BMI Weight Weight: 165 lb 0.009 oz Body Mass Index (BMI) 29.2 ABG / Lab / Microbiology Data Result Diagrams: 12/05/21 13:33 12/05/21 13:33 Microbiology: Microbiology 12/05/21 13:33 Interface Orders Nasal Screen MRSA/MSSA - Final Radiography Diagnostic Testing: Radiology Impression Spine X-Ray 12/17/21 07:15 IMPRESSION: The localization instrument is seen along the anterior aspect of the C5-C6 disc space level. Electronically Signed: Jerome Fay MD at 10:39 EDT , Spine X-Ray 12/17/21 09:35 IMPRESSION: Interval anterior cervical discectomy and fusion at C5/C6 with anatomic alignment. Electronically Signed: Pietro Carcamo MD at 8:22 EDT , Meaningful Use Info Meaningful Use Diagnoses (Choose all that apply): None applicable Discharge Plan Admission Admit Date/Time: 12/17/21 11:08 Primary Reason for Your Visit: cervical fusion Attending Provider: Gerardo Guthrie Primary Care Provider: Jose Luis Alegria Consulting Providers: Paula Cherry ; Adam Parker Discharge Orders/Prescriptions Prescriptions: No Action naproxen sodium [Aleve] 220 mg capsule 220 mg PO BID PRN (Reason: Pain) RF: 0 cholecalciferol (vitamin D3) 1,000 UNIT tablet 1,000 unit PO DAILY RF: 0 vitamin A 2,400 mcg Capsule 2,400 mcg PO DAILY RF: 0 ascorbic acid (vitamin C) [Vitamin C] 500 mg Tablet 1,000 mg PO DAILY RF: 0 diphenhydramine HCl [Sleep Aid (diphenhydramine)] 25 mg Capsule 25 mg PO QHS PRN (Reason: Insomnia) RF: 0 coenzyme Q10 [CoQ-10] 100 mg Capsule 100 mg PO DAILY RF: 0 rosuvastatin [Crestor] 10 mg Tablet 10 mg PO QHS RF: 0 Orencia ClickJect 125 mg/mL auto-injector 125 mg SUBCUT QWEEK RF: 0 B12 Active 1,000 mcg Tablet,Chewable 1,000 mcg PO DAILY RF: 0 Other Ambulatory Orders: 12 Lead EKG (Routine) Timeframe: 20211205 Location: None Selected Ordered By: Dr. Gerardo Guthrie Referrals / Follow Up: Jose Luis Alegria MD [Primary Care Provider] - Disposition Disposition (needs filled in before D/C Order can be placed): Home, Self Care
--- NOTE | 2021-12-18 11:20 | CASEMGMT ---
RN CM INTERNSHIP COORDINATOR CM to room to meet with patient for initial transition planning/care coordination assessment. RN MARLEEN introduced self and role at [facility]. Pt voices understanding and consents to assessment at this time. Pt sitting up in chair in room in no distress at this time. Pt is A/O at this time and answers all questions appropriately. Care providers, pharmacy, and demographics verified/updated at this time. PCP: Dr Jose Luis Alegria Specialists: Dr Guthrie-ortho. Dr Velez--fashion marketer @ [facility] in [place], Dr Alarcon--pulmonology Preferred Pharmacy: [facility] Retail Insurance: [employer] Me Prescription Benefit: Yes Living Will/HPOA: Has both LW and HPOA, who is her , Dwight. Pt states she brought paperwork in this admission. LNOK: , Dwight Living Arrangements: Lives w/ and 3 children, ages: 21, 19, 16. They live in a one-story home w/basement. 2 steps to enter home. Pt is independent and works from home. 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 Transportation: Pt states drives self and states no transportation concerns at this time. also drives DME: Denies using any DME and denies needs. HHC/SNF: No hx of either. No needs identified. Pt wishes to return home and states has no concerns with going home at time of discharge. CM to follow for any discharge planning/needs. Pt voices no concerns/needs at this time. Advised pt to ask for CM if any questions/concerns/needs arise. Voices understanding. PLAN: Home w/family support and discharge plans in place. Vicente BALDERAS RN, CM
--- NOTE | 2021-12-18 11:59 | CHAPLAIN ---
Type of Pastoral Visit _x__ Initial Visit ___ Follow-up Visit ___ On-call Visit ___ General Patient Visit ___ Spiritual Assessment ___ Family Conference ___ Bereavement ___ Rapid Response ___ Code Blue ___ Other (describe below) Pastoral Care Referral From _x__ Patient ___ Family ___ Nurse ___ Physician ___ Scheduling Agent ___ Miner Placer ___ Other (describe below) Sacrament/Intervention _x__ Active listening ___ Anointing ___ Caodaism ___ Bereavement ___ Communion ___ Aline exploration ___ ___ Life review ___ Prayer ___ Reconciliation ___ Sacrament of Sick _x__ Supportive presence ___ Wedding ___ Other (describe below) Pastoral Comments patient reports feeling better and expects to be discharged today; pt says she is looking forward to going home and will have lots of help; pt is listening to Judaism praise music on her phone and 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
--- NOTE | 2021-12-18 12:50 | NURSING ---
pt sitting in chair, eyes closed breathing even/unlabored. soft collar off since Dr. Guthrie changed drsg. pt states Dr. Guthrie gave her verbal instructions on soft collar and dressing when he was in to change drsg
[2021-12-18 13:46] VITALS: BP 119/69; PULSE 86; RESP 18; TEMP 36.9; O2SAT 100
== END 2021-12-18 14:34 | disposition home or self-care (01) ==
LOC: SDC 11:27 → MS3 11:27
PROVIDERS: Anesthesiology; Admitting Provider Orthopaedic Surgery; PCP Family Medicine; Referring Provider Orthopaedic Surgery; Visit Provider Orthopaedic Surgery
PROC: (CPT 22551; principal; 2021-12-17 07:00)
DX: M48.02 Spinal stenosis, cervical region (principal); M06.9 Rheumatoid arthritis, unspecified; M99.01 Segmental and somatic dysfunction of cervical region; M79.602 Pain in left arm; E78.5 Hyperlipidemia, unspecified; M99.02 Segmental and somatic dysfunction of thoracic region; M99.03 Segmental and somatic dysfunction of lumbar region; K21.9 Gastro-esophageal reflux disease without esophagitis; Z86.16 Personal history of COVID-19; Z79.899 Other long term (current) drug therapy
CPT/HCPCS: 22551; 20931; 22853; 22845; 00670; 36415; 72020; 80048; 82962; 83735; 85025; 86703; 86706; 86708; 86803; 87081; 88304; 93005; 96361; 96365; 96366; 96375; 96376; 97161; 97530; 99218; 99251; C1713; J7120; A4216; G0378; G0463; J2310; J2405

== ENCOUNTER → 2022-01-22 | Outpatient (CLI) | payer OTHER, SELFPAY ==
[2022-01-22 11:18] LABS: Vitamin D,25 Hydroxy 46.5 ng/mL
[2022-01-22 11:21] LABS: ALB/GLOB Ratio 1.2 RATIO (0.9-2.4); AST(SGOT) 18 U/L (15-37); Alanine Aminotransfer ALT/SGPT 21 U/L (13-56); Albumin, Serum 3.8 g/dL (3.2-5.0); Alkaline Phosphatase 79 U/L (45-117); Anion Gap 3 (5-15); BUN 14 mg/dL (7-18); BUN/Creat Ratio 24.2 RATIO (10-20); Calcium,Total 9.4 mg/dL (8.5-10.1); Chloride 106 mmol/L (98-107); Cholesterol 175 mg/dL (200); Creatinine, Serum 0.58 mg/dL (0.55-1.02); EST Glomerular Filtration Rate 119 mL/min (>60); Est Glom Filt Rate - Afr Amer 144 mL/min (>60); Globulin 3.2 g/dL (2.2-4.2); Glucose 90 mg/dL (74-106); High Density Lipoprotein 58 mg/dL; Sodium Level 137 mmol/L (136-145); Triglycerides 141 mg/dL; Very Low Density Lipoprotein 28 mg/dL (5-40)
[2022-01-22 11:23] LABS: Absolute Lymphocyte Count 1.94 X10^3/uL (0.83-4.51); Absolute Neutrophil Count 4.9 X10^3/uL (2.0-7.7); Basophil# 0.08 X10^3/uL; Eosinophil# 0.19 X10^3/uL; Eosinophils% 2.5 % (0-5); Hematocrit 37.1 % (37-47); Hemoglobin 12.5 g/dL (12.0-15.0); Lymphocyte # 1.94 X10^3/ul (0.83-4.51); Lymphocyte % 25.1 % (19-41); Mean Corp Hgb Conc 33.7 g/dL (32-36); Mean Corpuscular Hgb 31.6 pg (27.0-32.0); Mean Corpuscular Volume 93.9 fL (81-99); Mean Platelet Vol. 11.7 fl (6.2-12.0); Monocyte# 0.64 X10^3/uL; Monocyte% 8.3 % (0-10); NRBC Flagged by Analyzer 0 % (0-5); Neutrophil # 4.87 X10^3/uL (2.7-7.7); Neutrophil % 62.8 % (47-70); Platelet Count 297 K/mm3 (150-450); RBC Distribution Width CV 12.8 % (11.6-14.6); RBC Distribution Width SD 43.8 fl (35.1-43.9); Red Blood Count 3.95 M/mm3 (4.2-5.4); White Blood Count 7.7 K/mm3 (4.4-11.0)
== END | disposition home or self-care (01) ==
LOC: MFPLAB 10:55
PROVIDERS: PCP Family Medicine; Referring Provider Family Medicine; Visit Provider Family Medicine
DX: E78.5 Hyperlipidemia, unspecified (principal); E55.9 Vitamin D deficiency, unspecified
CPT/HCPCS: 36415; 80053; 80061; 82306; 85025

== ENCOUNTER → 2022-02-13 | Outpatient (CLI) | payer OTHER, SELFPAY ==
[2022-02-13 10:24] LABS: Absolute Lymphocyte Count 1.44 X10^3/uL (0.83-4.51); Basophil# 0.03 X10^3/uL; Basophil% 0.6 % (0-1); Eosinophil# 0.14 X10^3/uL; Eosinophils% 2.8 % (0-5); Hematocrit 35.9 % (37-47); Hemoglobin 12.1 g/dL (12.0-15.0); Lymphocyte # 1.44 X10^3/ul (0.83-4.51); Lymphocyte % 28.6 % (19-41); Mean Corp Hgb Conc 33.7 g/dL (32-36); Mean Corpuscular Hgb 32.2 pg (27.0-32.0); Mean Corpuscular Volume 95.5 fL (81-99); Mean Platelet Vol. 10.3 fl (6.2-12.0); Monocyte# 0.46 X10^3/uL; Monocyte% 9.1 % (0-10); NRBC Flagged by Analyzer 0 % (0-5); Neutrophil # 2.96 X10^3/uL (2.7-7.7); Neutrophil % 58.7 % (47-70); Platelet Count 262 K/mm3 (150-450); RBC Distribution Width CV 13.3 % (11.6-14.6); RBC Distribution Width SD 47.2 fl (35.1-43.9); Red Blood Count 3.76 M/mm3 (4.2-5.4)
== END | disposition home or self-care (01) ==
LOC: MFPLAB 09:24
PROVIDERS: PCP Family Medicine; Referring Provider Family Medicine; Visit Provider Internal Medicine Rheumatology
DX: D64.9 Anemia, unspecified (principal)
CPT/HCPCS: 36415; 85025

== ENCOUNTER → 2022-03-04 | Outpatient (CLI) | payer OTHER, SELFPAY ==
--- NOTE | 2022-03-04 10:39 | RAD_ITS ---
STUDY: X-RAY - RIGHT KNEE REASON FOR EXAM: Right knee pain. TECHNIQUE: 3 view(s) of the knee. COMPARISON: None. FINDINGS: Normal visualized distal femur. Normal visualized proximal tibia and fibula. Normal proximal tibiofibular articulation. Normal medial femorotibial compartment. Normal lateral femorotibial compartment. Normal patellofemoral articulation. The soft tissue structures are unremarkable. RAD/Knee 3 Views IMPRESSION: Unremarkable x-ray examination of the right knee. Electronically Signed: Moses Sánchez MD at 14:11 EDT ,
--- NOTE | 2022-03-04 10:42 | RAD_ITS ---
STUDY: X-RAY - LEFT KNEE REASON FOR EXAM: Left knee pain. TECHNIQUE: 3 view(s) of the knee. COMPARISON: None. FINDINGS: Normal visualized distal femur. Normal visualized proximal tibia and fibula. Normal proximal tibiofibular articulation. Normal medial femorotibial compartment. Normal lateral femorotibial compartment. Normal patellofemoral articulation. The soft tissue structures are unremarkable. RAD/Knee 3 Views IMPRESSION: Unremarkable x-ray examination of the left knee. Electronically Signed: Moses Sánchez MD at 14:19 EDT ,
[2022-03-04 12:25] LABS: Erythrocyte Sedimentation Rate 5 mm/hr (0-30)
== END | disposition home or self-care (01) ==
LOC: MTLAB 10:38
PROVIDERS: PCP Family Medicine; Referring Provider Family Medicine; Visit Provider Family Medicine
DX: M06.9 Rheumatoid arthritis, unspecified (principal); M25.562 Pain in left knee; M25.561 Pain in right knee
CPT/HCPCS: 36415; 73562; 85652

== ENCOUNTER → 2022-05-27 | Outpatient (CLI) | payer OTHER, SELFPAY ==
[2022-05-27 09:53] LABS: Absolute Lymphocyte Count 1.55 X10^3/uL (0.83-4.51); Absolute Neutrophil Count 2.9 X10^3/uL (2.0-7.7); Basophil# 0.04 X10^3/uL; Basophil% 0.8 % (0-1); Eosinophil# 0.26 X10^3/uL; Hematocrit 37.5 % (37-47); Hemoglobin 12.2 g/dL (12.0-15.0); Lymphocyte # 1.55 X10^3/ul (0.83-4.51); Mean Corp Hgb Conc 32.5 g/dL (32-36); Mean Corpuscular Hgb 30.7 pg (27.0-32.0); Mean Corpuscular Volume 94.5 fL (81-99); Mean Platelet Vol. 10.4 fl (6.2-12.0); Monocyte# 0.43 X10^3/uL; Monocyte% 8.3 % (0-10); NRBC Flagged by Analyzer 0 % (0-5); Neutrophil # 2.87 X10^3/uL (2.7-7.7); Neutrophil % 55.5 % (47-70); Platelet Count 287 K/mm3 (150-450); RBC Distribution Width CV 13.2 % (11.6-14.6); RBC Distribution Width SD 45.6 fl (35.1-43.9); Red Blood Count 3.97 M/mm3 (4.2-5.4); White Blood Count 5.2 K/mm3 (4.4-11.0)
[2022-05-27 10:15] LABS: ALB/GLOB Ratio 1.1 RATIO (0.9-2.4); AST(SGOT) 13 U/L (15-37); Alanine Aminotransfer ALT/SGPT 18 U/L (13-56); Albumin, Serum 3.6 g/dL (3.2-5.0); Alkaline Phosphatase 69 U/L (45-117); Anion Gap 6 (5-15); BUN 16 mg/dL (7-18); Calcium,Total 8.5 mg/dL (8.5-10.1); Chloride 107 mmol/L (98-107); Cholesterol 139 mg/dL (200); EST Glomerular Filtration Rate 96 mL/min (>60); Est Glom Filt Rate - Afr Amer 116 mL/min (>60); Globulin 3.3 g/dL (2.2-4.2); Glucose 92 mg/dL (74-106); High Density Lipoprotein 60 mg/dL; Potassium 4.4 mmol/L (3.5-5.1); Protein, Total 6.9 g/dL (6.4-8.2); Sodium Level 139 mmol/L (136-145); Triglycerides 120 mg/dL; Very Low Density Lipoprotein 24 mg/dL (5-40)
[2022-05-27 10:25] LABS: Vitamin D,25 Hydroxy 46.4 ng/mL
== END | disposition home or self-care (01) ==
LOC: MFPLAB 08:04
PROVIDERS: PCP Family Medicine; Referring Provider Family Medicine; Visit Provider Family Medicine
DX: E78.5 Hyperlipidemia, unspecified (principal); E55.9 Vitamin D deficiency, unspecified
CPT/HCPCS: 36415; 80053; 80061; 82306; 85025

== ENCOUNTER → 2022-06-03 | Outpatient (CLI) | payer OTHER, SELFPAY | END | disposition home or self-care (01) | LOC: LABSPEC 11:05 | PROVIDERS: PCP Family Medicine; Referring Provider Student in an Organized Health Care Education/Training Program; Visit Provider Student in an Organized Health Care Education/Training Program | DX: Z12.4 Encounter for screening for malignant neoplasm of cervix (principal) | CPT/HCPCS: 87624; 88175; G0145 ==

== ENCOUNTER → 2022-06-16 | Outpatient (CLI) | payer OTHER, SELFPAY ==
--- NOTE | 2022-06-16 08:02 | BI_ITS ---
MAMMOGRAPHY - BILATERAL SCREENING REASON FOR EXAM: Female, 47 years old. Routine annual screening examination. PERTINENT HISTORY: Mother with breast cancer. Prior left ultrasound-guided breast biopsy. TECHNIQUE: Digital bilateral breast gato (3D mammographic acquisition) in the CC and MLO projections. 2-D mediolateral oblique (MLO) and craniocaudad (CC) views of both breasts were obtained. CAD: Full Field Digital Mammography with Computer Added Detection was performed. COMPARISON: Comparison is made with prior outside examination dated 02/21/2021. FINDINGS: Breast Composition: The breasts are heterogeneously dense, which may obscure small masses. There is a 1.3 cm x 1.3 cm well-defined nodular density in the upper slightly lateral aspect of the left breast. There is also evidence of a 1 cm x 1 cm nodular density in the inferior medial aspect of the left breast with a tissue clip marker within it. No other significant abnormalities are identified. BI/SCRN MAMM (CAD)W/GATO BILAT IMPRESSION: 1.3 cm x 1.3 cm well-defined nodular density in the upper slightly lateral aspect of the left breast as described. Correlation with ultrasound is recommended. ASSESSMENT CATEGORY: BIRADS Category 0: Incomplete. Need additional imaging evaluation. A letter regarding these results will be sent to the patient by the facility within 30 days. Approximately 10% of breast cancers are not detected by mammography. A normal mammogram should not delay biopsy of a clinically suspicious abnormality. [id number] Electronically Signed: Jerome Fay MD at 8:42 EST ,
== END | disposition home or self-care (01) ==
LOC: OPBI 08:00
PROVIDERS: PCP Family Medicine; Visit Provider Student in an Organized Health Care Education/Training Program
DX: Z12.31 Encounter for screening mammogram for malignant neoplasm of breast (principal); R92.8 Other abnormal and inconclusive findings on diagnostic imaging of breast; Z80.3 Family history of malignant neoplasm of breast
CPT/HCPCS: 77063; 77067

== ENCOUNTER → 2022-06-17 | Outpatient (CLI) | payer OTHER, SELFPAY ==
--- NOTE | 2022-06-17 09:30 | US_ITS ---
STUDY: ULTRASOUND BREAST - LEFT REASON FOR EXAM: Female, 47 years old. Abnormal screening mammogram. TECHNIQUE: Axial and longitudinal images of the LEFT breast were performed with a high resolution ultrasound transducer. # OF IMAGES: 34 COMPARISON: Comparison is made with prior mammogram dated 06/16/2022. FINDINGS: LEFT Breast: The mammographic abnormality corresponds to a 1.1 cm x 1.5 cm x 0.8 cm slightly lobulated hypoechoic nodule at the 12 o''clock position of the breast 3 cm from nipple. A biopsy is recommended for further evaluation. US/Breast Limited Unilateral IMPRESSION: The mammographic abnormality corresponds to a 1.1 cm x 1.5 cm x 0.8 cm slightly lobulated hypoechoic nodule at the 12 o''clock position of the breast at 3 cm from the nipple. Biopsy is recommended. ASSESSMENT CATEGORY: BIRADS Category 4: Suspicious - Biopsy Should Be Considered. A letter regarding these results will be sent to the patient by the facility within 30 days. Electronically Signed: Jerome Fay MD at 15:44 EST ,
== END | disposition home or self-care (01) ==
LOC: OPUS 09:28
PROVIDERS: PCP Family Medicine; Visit Provider Student in an Organized Health Care Education/Training Program
DX: N63.22 Unspecified lump in the left breast, upper inner quadrant (principal)
CPT/HCPCS: 76642

== ENCOUNTER → 2022-06-20 | Outpatient (CLI) | payer OTHER, SELFPAY ==
--- NOTE | 2022-06-20 | BRBX_PTH ---
PATIENT: TIERRA PENA LOC: [facility] U#:[id number] AGE/SX: 47/F ROOM: RE06/20/[address]: Dr. Wallace Whitehead MD : 1975 BED: DIS: 06/20/2022 SPEC #: [id number] RECD: 06/20/22 14:57 STATUS: JORDANA VICTORIA #: [id number] BETTY: 06/20/22 00:[address]: Wallace Whitehead DEPT: SURGICAL PATHOLOGY RECD BY: Walter Ramey Tissues: Left breast, NOS Procedures: Surgery Specimen Level IV HEADER OPERATION: Biopsy of left breast nodule PRE-OP DIAGNOSIS: Left breast nodule TISSUE SUBMITTED: Left breast tissue MICROSCOPIC DIAGNOSIS Left breast, core biopsy: Fibroadenoma. AM:rudy 06/24/2022 MICROSCOPIC DESCRIPTION Slides are reviewed. GROSS DESCRIPTION Received in fixative is one container labeled with the patient's name and designated left breast tissue nodule. The specimen consists of multiple elongated fragments of rivas-yellow fibroadipose tissue that in aggregate measure 1.5 x 1 x 0.1 cm. The entire specimen is submitted in one cassette. / SJ:rg 06/23/2022 TC:1 CPT: 19125
== END | disposition home or self-care (01) ==
LOC: LABSPEC 15:07
PROVIDERS: Visit Provider Surgery
DX: N63.20 Unspecified lump in the left breast, unspecified quadrant (principal)
CPT/HCPCS: 88305

== ENCOUNTER → 2022-11-06 | Outpatient (CLI) | payer OTHER, SELFPAY ==
--- NOTE | 2022-11-06 06:27 | MRI_ITS ---
INDICATION: pain, left arm pain, hx prior fusion 12/2021 EXAMINATION: MRI - MR Spine Cervical W/O Contrast TECHNIQUE: Multiplanar and multisequence MR images of the cervical spine were performed. IV Contrast Dosage and Agent: None. COMPARISON: None. FINDINGS: VERTEBRAE: There is metal artifact anteriorly at C5-6 consistent with prior anterior cervical disc fusion. This metal artifact extends posteriorly particularly on the T2, inversion recovery and gradient echo imaging. VERTEBRAL ALIGNMENT: Normal, including the craniocervical junction and cervicothoracic junction. No spondylolisthesis. There is preservation of the normal cervical lordosis. CERVICAL SPINAL CORD: Unremarkable in signal and morphology. C2/C3: Mild disc desiccation. C3/C4: Moderate disc desiccation, mild disc osteophyte with small central disc herniation. C4/C5: Mild disc desiccation and loss of disc space height, mild bilateral uncovertebral joint disease and facet arthropathy with moderate right and mild left neural foraminal encroachment. C5/C6: Mild recurrent or residual disc osteophyte, mild bilateral neural foraminal encroachment. C6/C7: Moderate disc desiccation, moderate right paracentral disc herniation, mild underlying disc osteophyte, bilateral facet arthropathy and uncovertebral joint disease with severe right and moderate left neural foraminal encroachment. C7/T1: Normal disc height and morphology. Normal spinal canal and neuroforamina. NECK SOFT TISSUES: No prevertebral soft tissue swelling. There is no cervical adenopathy. MRI/Spine Cervical (Routine) IMPRESSION: Status post ACDF C5-6. Mild disc osteophyte with superimposed central disc herniation C3-4. Mild recurrent or residual disc osteophyte C5-6. Moderate right paracentral disc herniation C6-7. Additional findings above. Electronically Signed: Manuelito Faria MD, TRACY at 18:21 EDT ,
== END | disposition home or self-care (01) ==
PROVIDERS: PCP Family Medicine; Referring Provider Orthopaedic Surgery; Visit Provider Orthopaedic Surgery
DX: M50.223 Other cervical disc displacement at C6-C7 level (principal)
CPT/HCPCS: 72141

== ENCOUNTER → 2022-12-16 | Outpatient (CLI) | payer OTHER, SELFPAY ==
--- NOTE | 2022-12-16 08:06 | US_ITS ---
STUDY: ULTRASOUND BREAST - LEFT REASON FOR EXAM: Female, 47 years old. Six-month follow-up of left breast nodule. TECHNIQUE: Axial and longitudinal images of the LEFT breast were performed with a high resolution ultrasound transducer. # OF IMAGES: 18 COMPARISON: Comparison is made with prior study dated June 17, 2022. FINDINGS: LEFT Breast: Stable appearance of the 1 cm x 1.3 cm x 0.8 cm hypoechoic nodule at the 12:00 position of the breast at 3 cm from the nipple. US/Breast Limited Unilateral IMPRESSION: Stable appearance of the 1 cm x 1.3 cm x 0.8 cm hypoechoic nodule at the 12:00 position of the breast at 3 cm from the nipple. ASSESSMENT CATEGORY: BIRADS Category 2: Benign. A letter regarding these results will be sent to the patient by the facility within 30 days. Electronically Signed: Jerome Fay MD at 14:15 EDT ,
== END | disposition home or self-care (01) ==
PROVIDERS: PCP Family Medicine; Referring Provider Surgery; Visit Provider Surgery
DX: N63.21 Unspecified lump in the left breast, upper outer quadrant (principal)
CPT/HCPCS: 76642

== ENCOUNTER → 2023-01-19 | Outpatient (CLI) | payer OTHER, SELFPAY ==
--- NOTE | 2023-01-19 06:35 | MRI_ITS ---
EXAM: MR HEAD WITHOUT AND WITH INTRAVENOUS CONTRAST CLINICAL INDICATION: Migraine, headaches, neck pain TECHNIQUE: Multiplanar and multisequence MR images of the brain were obtained without and with intravenous contrast. CONTRAST: 15 mL of IV Clariscan. COMPARISON: None. FINDINGS: BRAIN AND EXTRA-AXIAL SPACES: No focal signal abnormalities throughout the brain parenchyma in all pulse sequences. No intra- or extra-axial hemorrhage. No evidence of acute infarct. No intracranial mass or mass effect. There is preservation of the liu/white matter interface. Posterior fossa structures are unremarkable. Ventricles are normal. No hydrocephalus. Normal suprasellar cistern and basal cisterns. SELLA: Unremarkable. Normal sella turcica, pituitary gland, infundibular stalk, optic chiasm and hypothalamus. AUDITORY SYSTEM: Unremarkable. The internal auditory canals are patent. BONES/JOINTS: Unremarkable. No discrete lytic or blastic abnormalities. SINUSES: Unremarkable as visualized. Clear. MASTOID AIR CELLS: Unremarkable as visualized. Clear. ORBITS: Unremarkable as visualized. Both globes, extraocular muscles, optic nerves and retrobulbar fat appear unremarkable. VASCULATURE: Unremarkable as visualized. Normal flow voids in the major intracranial circulation. MRI/Brain W/WO Contrast IMPRESSION: Normal MRI brain without and with intravenous contrast. Electronically Signed: Shayne Robles MD at 9:41 EDT ,
== END | disposition home or self-care (01) ==
PROVIDERS: PCP Family Medicine; Referring Provider Family Medicine; Visit Provider Family Medicine
DX: G43.909 Migraine, unspecified, not intractable, without status migrainosus (principal)
CPT/HCPCS: 70553; A9575

== ENCOUNTER → 2023-01-21 | Outpatient (CLI) | payer OTHER, SELFPAY ==
[2023-01-21 17:55] LABS: Absolute Lymphocyte Count 0.98 X10^3/uL (0.83-4.51); Absolute Neutrophil Count 1.4 X10^3/uL (2.0-7.7); Basophil# 0.03 X10^3/uL; Eosinophil# 0.07 X10^3/uL; Eosinophils% 2.3 % (0-5); Hematocrit 35.1 % (37-47); Hemoglobin 11.8 g/dL (12.0-15.0); Lymphocyte # 0.98 X10^3/ul (0.83-4.51); Lymphocyte % 32.9 % (19-41); Mean Corp Hgb Conc 33.6 g/dL (32-36); Mean Corpuscular Hgb 31.9 pg (27.0-32.0); Mean Corpuscular Volume 94.9 fL (81-99); Mean Platelet Vol. 10.6 fl (6.2-12.0); Monocyte# 0.49 X10^3/uL; Monocyte% 16.4 % (0-10); NRBC Flagged by Analyzer 0 % (0-5); Neutrophil % 47.1 % (47-70); Platelet Count 147 K/mm3 (150-450); RBC Distribution Width CV 13.3 % (11.6-14.6); RBC Distribution Width SD 46.2 fl (35.1-43.9)
[2023-01-21 18:05] LABS: AST(SGOT) 92 U/L (15-37); Alanine Aminotransfer ALT/SGPT 116 U/L (13-56); Albumin, Serum 3.8 g/dL (3.2-5.0); Alkaline Phosphatase 171 U/L (45-117); Bilirubin, Direct 0.16 mg/dL (0.00-0.30); Globulin 2.9 g/dL (2.2-4.2); Protein, Total 6.7 g/dL (6.4-8.2)
[2023-01-23 17:07] LABS: Vitamin D,25 Hydroxy 45.9 ng/mL
[2023-01-23 19:54] LABS: Anion Gap 8 (5-15); BUN 12 mg/dL (7-18); BUN/Creat Ratio 18.2 RATIO (10-20); Bilirubin, Direct 0.17 mg/dL (0.00-0.30); Calcium,Total 8.7 mg/dL (8.5-10.1); Chloride 106 mmol/L (98-107); Cholesterol 145 mg/dL (200); Creatinine, Serum 0.66 mg/dL (0.55-1.02); EST Glomerular Filtration Rate 102 mL/min (>60); Est Glom Filt Rate - Afr Amer 124 mL/min (>60); Glucose 103 mg/dL (74-106); High Density Lipoprotein 34 mg/dL; Potassium 4.2 mmol/L (3.5-5.1); Sodium Level 138 mmol/L (136-145); Triglycerides 264 mg/dL; Very Low Density Lipoprotein 53 mg/dL (5-40)
== END | disposition home or self-care (01) ==
LOC: MFPLAB 14:22
PROVIDERS: PCP Family Medicine; Visit Provider Internal Medicine Rheumatology
DX: D72.819 Decreased white blood cell count, unspecified (principal); R74.8 Abnormal levels of other serum enzymes; E55.9 Vitamin D deficiency, unspecified; E78.5 Hyperlipidemia, unspecified
CPT/HCPCS: 36415; 80048; 80061; 80076; 82248; 82306; 85025

== ENCOUNTER → 2023-01-29 | Outpatient (CLI) | payer OTHER, SELFPAY ==
--- NOTE | 2023-01-29 10:18 | RAD_ITS ---
INDICATION: sob EXAMINATION/TECHNIQUE: X-RAY - XR Chest 2 Views COMPARISON: FINDINGS: LINES/DEVICES: None. LUNGS: No consolidation, edema or effusion. No pneumothorax. MEDIASTINUM AND CARDIOVASCULAR STRUCTURES: Cardiac silhouette not enlarged. Central airways and mediastinal contour are unremarkable. BONES AND SOFT TISSUES: Unremarkable. RAD/Chest PA and Lateral IMPRESSION: No radiographic evidence of acute cardiopulmonary disease. Electronically Signed: Rios Fuentes, at 10:53 EDT ,
== END | disposition home or self-care (01) ==
LOC: MTRAD 10:17
PROVIDERS: PCP Family Medicine; Visit Provider Family Medicine
DX: R06.02 Shortness of breath (principal)
CPT/HCPCS: 71046

== ENCOUNTER → 2023-02-10 | Outpatient (CLI) | payer OTHER, SELFPAY ==
--- NOTE | 2023-02-10 06:49 | CT_ITS ---
STUDY: CT CHEST WITHOUT CONTRAST REASON FOR EXAM: Female, 47 years old. Concern for CT-ILD. History of rheumatoid arthritis. RADIATION DOSAGE (If Supplied By Facility): CTDIvol = ( 12.28 ) mGy, DLP = ( 464.84 ) mGycm TECHNIQUE: Transaxial imaging was performed without the administration of intravenous contrast material. Individualized dose optimization techniques were used for this CT. COMPARISON: Comparison is made with prior study dated October 16, 2021. FINDINGS: CHEST There now is evidence of bronchiectasis with a reticular nodular pattern in the superior segment of the left lower lobe. The largest nodule measures 1.2 cm. This is new as compared to prior study. There is enlargement of the left infrahilar lymph node. Correlation with a PET scan is recommended. Stable 3 mm noncalcified nodule in the posterior medial aspect of the right lower lobe as seen on axial image #70. Stable 3 mm noncalcified nodule in the right lower lobe as seen on axial image #58. There is no demonstrated pleural abnormality. Normal heart and pericardium. Normal mediastinum. Normal hilar regions. Normal unenhanced pulmonary arteries. Normal aorta arch and descending thoracic aorta. There are mild degenerative changes of the thoracic spine. There is no demonstrated abnormality of the visualized upper abdomen. CT/Chest without Contrast IMPRESSION: New focal area of bronchiectasis and reticular nodular pattern as described in superior segment of the left lower lobe with the increased left infrahilar lymph node. Correlation with a PET scan is recommended. Electronically Signed: Jerome Fay MD at 9:51 EDT ,
== END | disposition home or self-care (01) ==
PROVIDERS: PCP Family Medicine; Referring Provider Internal Medicine Critical Care Medicine; Visit Provider Internal Medicine Critical Care Medicine
DX: M05.9 Rheumatoid arthritis with rheumatoid factor, unspecified (principal)
CPT/HCPCS: 71250

== ENCOUNTER → 2023-02-12 | Outpatient (CLI) | payer OTHER, SELFPAY ==
--- NOTE | 2023-02-12 12:31 | ECHOD_ITS ---
Reason For Study: SOB Procedure This was a 2D Doppler, Color Flow transthoracic echocardiogram. Exam performed in department. Left Ventricle Normal LV size. Left ventricular systolic function is normal. The estimated ejection fraction is 55 %. Stage 1 diastolic dysfunction. No regional wall motion abnormalities noted. Right Ventricle Normal right ventricle. Normal systolic function. Atria Normal left atrium. Mitral Valve Normal mitral valve. Tricuspid Valve Normal tricuspid valve. Mild tricuspid valve insufficiency. Aortic Valve Normal aortic valve. Pulmonic Valve Normal pulmonic valve. Great Vessels Normal aortic root. The pulmonary artery is normal size. Normal inferior vena cava. Pericardium/Pleural No pericardial effusion. MMode/2D Measurements & Calculations LVIDd: 5.0 cm IVSd: 1.0 cm Ao root diam: 3.2 cm LVIDs: 3.6 cm LVPWd: 0.84 cm LA dimension: 3.2 cm RVDd: 3.3 cm FS: 27.6 % LAV(MOD-bp): 37.3 ml LVAd ap4: 25.4 cm2 SV(MOD-sp4): 40.4 ml LAV(MOD-bp) Indexed: 20.7 ml/m2 LVLd ap4: 7.3 cm LAV(MOD-sp2): 39.9 ml EDV(MOD-sp4): 74.4 ml LAV(MOD-sp4): 34.6 ml EDV(sp4-el): 75.0 ml LVAs ap4: 15.8 cm2 LVLs ap4: 6.2 cm ESV(MOD-sp4): 34.0 ml ESV(sp4-el): 34.2 ml EF(MOD-sp4): 54.4 % EF(sp4-el): 54.4 % SV(sp4-el): 40.8 ml LA A4 area: 14.6 cm2 RA A4 area: 11.2 cm2 Time Measurements MV dec time: 0.24 sec Doppler Measurements & Calculations MV E max markus: 59.9 cm/sec Lat Peak E' Markus: 14.7 cm/sec Med Peak E' Markus: 9.4 cm/sec MV A max markus: 68.4 cm/sec E/E' lat: 4.1 E/E' med: 6.4 MV E/A: 0.87 MV V2 max: 69.4 cm/sec MV P1/2t max markus: 57.1 cm/sec Ao V2 max: 131.0 cm/sec MV max P.9 mmHg MV P1/2t: 70.7 msec Ao max P.9 mmHg MV V2 mean: 43.7 cm/sec Ao V2 mean: 92.7 cm/sec MV mean P.89 mmHg MV dec slope: 236.6 cm/sec2 Ao mean P.9 mmHg MV V2 VTI: 15.8 cm MVA(P1/2t): 3.1 cm2 Ao V2 VTI: 25.9 cm AV (velocity ratio): 0.70 LV V1 max: 100.4 cm/sec PA V2 max: 113.2 cm/sec TR max markus: 197.9 cm/sec LV V1 max P.0 mmHg PA V2 mean: 77.1 cm/sec TR max P.7 mmHg LV V1 mean P.2 mmHg LV V1 mean: 69.5 cm/sec LV V1 VTI: 18.1 cm ECHO/Echo Complete Interpretation Summary Normal LV size. Left ventricular systolic function is normal. The estimated ejection fraction is 55 %. Stage 1 diastolic dysfunction. Mild tricuspid valve insufficiency. Structurally normal valves. Ordering Physician: Jose Luis Alegria Referring Physician: Jose Luis Alegria Performed By: Ishan Rich RCS
== END | disposition home or self-care (01) ==
LOC: CVS 12:28
PROVIDERS: PCP Family Medicine; Referring Provider Family Medicine; Visit Provider Family Medicine
DX: R06.02 Shortness of breath (principal)
CPT/HCPCS: 93306

== ENCOUNTER → 2023-04-21 | Outpatient (CLI) | payer OTHER, SELFPAY ==
--- NOTE | 2023-04-22 08:28 | PFT ---
INTRODUCTION: The patient is a 47-year-old female who presents for pulmonary function studies secondary to a diagnosis of rheumatoid arthritis. Respiratory therapy reported good patient effort. Bronchodilators were used during testing. INTERPRETATION: Forced expiration spirometry demonstrates no evidence of a large airways obstructive ventilatory defect. There was no significant response to aerosolized bronchodilators. Spirograms are of good quality and plateau normally. The respiratory flow-volume loop is normal. Body plethysmography was performed and revealed lung volumes to be within normal limits. Diffusing capacity by single breath CO was also within normal limits. IMPRESSION: Grossly normal pulmonary function studies.
== END | disposition home or self-care (01) ==
PROVIDERS: PCP Family Medicine; Referring Provider Internal Medicine Critical Care Medicine; Visit Provider Internal Medicine Critical Care Medicine
DX: M05.9 Rheumatoid arthritis with rheumatoid factor, unspecified (principal)
CPT/HCPCS: 94060; 94726; 94729

== ENCOUNTER → 2023-05-14 | Outpatient (CLI) | payer OTHER, SELFPAY ==
--- NOTE | 2023-05-14 07:48 | CT_ITS ---
INDICATION: follow new nodule EXAMINATION: CT CHEST WITHOUT CONTRAST - CT Chest W/O Contrast Injection TECHNIQUE: Helically acquired images were obtained of the chest. A radiation dose optimization technique was used for this scan. IV Contrast dosage and agent: None. RADIATION DOSAGE (If Supplied By Facility): CTDIvol = ( 11.54 ) mGy, DLP = ( 395.09 ) mGycm COMPARISON: Prior study dated: 02/10/2023. FINDINGS: LUNGS, PLEURA AND LARGE AIRWAYS: Previously noted focal reticular nodular changes in the superior segment of the left upper lobe markedly improved since the previous examination. Adjacent 3 mm nodule decreased in size. Stable 2 mm right upper lobe nodule is on image 46 series 4 and 3 mm right lower lobe nodule and image 58 series 4. No new nodules are seen. No consolidation. No pleural effusion or thickening. No pneumothorax. THYROID: No thyroid lesions. HEART AND PERICARDIUM: Heart size is normal. No pericardial effusion. CORONARY ARTERIES: Coronary artery calcification not seen. VESSELS: Thoracic aorta is not dilated. MEDIASTINUM AND JANES: Small mediastinal nodes and subcarinal region decreased in size. No evidence of adenopathy Esophagus is unremarkable. No hiatal hernia. UPPER ABDOMEN: No acute pathology. BONES: Degenerative changes of the spine unchanged CT/Chest without Contrast IMPRESSION: 1. Focal reticular nodular changes in the superior segment of the left lower lobe markedly improved since previous examination likely inflammatory or infectious. Further follow-up exam in 6 months is recommended. 2. Multiple small nodules for which no further follow-up exam needed other than routine annual screening. Electronically Signed: Baldo Fournier MD at 8:20 EDT ,
== END | disposition home or self-care (01) ==
LOC: CT 07:47
PROVIDERS: PCP Family Medicine; Referring Provider Nurse Practitioner Acute Care; Visit Provider Nurse Practitioner Acute Care
DX: R91.1 Solitary pulmonary nodule (principal)
CPT/HCPCS: 71250

== ENCOUNTER 2023-06-09 11:59 | Observation (INO) | payer OTHER, SELFPAY ==
--- NOTE | 2023-05-29 08:55 | EKG12_ITS ---
Test Reason : PRE OP Blood Pressure : / mmHG Vent. Rate : 080 BPM Atrial Rate : 080 BPM P-R Int : 142 ms QRS Dur : 080 ms QT Int : 374 ms P-R-T Axes : 053 045 031 degrees QTc Int : 431 ms Normal sinus rhythm Normal ECG Confirmed by LETICIA ALICEA, HEMANT ([id number]), fashion editor ANDREW BALDWIN ([id number]) on 06/03/2023 12:19:08 PM Referred By: Gerardo Guthrie Confirmed By:HEMANT KELLY MD
[2023-05-29 10:00] LABS: Absolute Lymphocyte Count 1.61 X10^3/uL (0.83-4.51); Absolute Neutrophil Count 3.3 X10^3/uL (2.0-7.7); Basophil# 0.03 X10^3/uL; Basophil% 0.5 % (0-1); Eosinophils% 3.6 % (0-5); Hematocrit 36.8 % (37-47); Hemoglobin 12.3 g/dL (12.0-15.0); Lymphocyte # 1.61 X10^3/ul (0.83-4.51); Lymphocyte % 28.7 % (19-41); Mean Corp Hgb Conc 33.4 g/dL (32-36); Mean Corpuscular Hgb 31.1 pg (27.0-32.0); Mean Corpuscular Volume 93.2 fL (81-99); Mean Platelet Vol. 10.2 fl (6.2-12.0); Monocyte# 0.44 X10^3/uL; Monocyte% 7.8 % (0-10); NRBC Flagged by Analyzer 0 % (0-5); Neutrophil # 3.32 X10^3/uL (2.7-7.7); Neutrophil % 59.2 % (47-70); Platelet Count 277 K/mm3 (150-450); RBC Distribution Width CV 14.2 % (11.6-14.6); RBC Distribution Width SD 48.3 fl (35.1-43.9); Red Blood Count 3.95 M/mm3 (4.2-5.4); White Blood Count 5.6 K/mm3 (4.4-11.0)
[2023-05-29 10:05] LABS: Anion Gap 4 (5-15); BUN 17 mg/dL (7-18); BUN/Creat Ratio 25.1 RATIO (10-20); Calcium,Total 8.1 mg/dL (8.5-10.1); Chloride 110 mmol/L (98-107); Creatinine, Serum 0.68 mg/dL (0.55-1.02); EST Glomerular Filtration Rate 99 mL/min (>60); Est Glom Filt Rate - Afr Amer 120 mL/min (>60); Glucose 92 mg/dL (74-106); Magnesium 2.2 mg/dL (1.6-2.6); Potassium 3.9 mmol/L (3.5-5.1); Sodium Level 140 mmol/L (136-145)
[2023-05-29 11:39] LABS: HIV - WCH Non-Reactive (Nonreactive); Hepatitis B Surface Antibody Reactive; Hepatitis C Antibody Non-Reactive (Nonreactive)
[2023-05-30 07:08] LABS: Hepatitis A AB, Total Positive (Negative)
--- NOTE | 2023-06-08 15:53 | PCM.HP.BLA ---
History and Physical [id number] Acct: [id number] Name: TIERRA PENA Rep #: [id number] : 1975 Provider: Dr. Gerardo Guthrie DO Age/Sex: 47/F Location: [facility] [email or web address] Status: Signed Intake Vital Signs 10/22/2311:46 Height 5 ft 3 in Intake Visit Reasons: CERVICAL SPINE Chief Complaint: cervical pain Is patient in pain?: Yes Allergies No Known Allergies Allergy (Verified 08/14/22 10:38) Medications naproxen sodium 220 mg capsule (Aleve) 220 mg PO BID PRN Pain 11/29/18 [History Confirmed 10/24/22] cholecalciferol (vitamin D3) 25 mcg (1,000 unit) tablet 1,000 unit PO DAILY SUPPLEMENT 12/20/18 [History Confirmed 10/24/22] abatacept 125 mg/mL subcutaneous auto-injector (Orencia ClickJect) 125 mg subcut QWEEK RA 12/05/21 [History Confirmed 10/24/22] ascorbic acid (vitamin C) 500 mg tablet (Vitamin C) 1,000 mg PO DAILY SUPPLEMENT 12/05/21 [History Confirmed 10/24/22] coenzyme Q10 100 mg capsule (CoQ-10) 100 mg PO DAILY SUPPLEMENT 12/05/21 [History Confirmed 10/24/22] diphenhydramine HCl 25 mg capsule (Sleep Aid (diphenhydramine)) 25 mg PO QHS PRN Insomnia 12/05/21 [History Confirmed 10/24/22] mecobalamin (vitamin B12) 1,000 mcg chewable tablet (B12 Active) 1,000 mcg PO DAILY SUPPLEMENT 12/05/21 [History Confirmed 10/24/22] rosuvastatin 10 mg tablet (Crestor) 10 mg PO QHS CHOLESTEROL 12/05/21 [History Confirmed 10/24/22] vitamin A 2,400 mcg capsule 2,400 mcg PO DAILY SUPPLEMENT 12/05/21 [History Confirmed 10/24/22] hydroxychloroquine 200 mg tablet tablet PO 03/10/22 [History Confirmed 10/24/22] PFSH Medical History Anemia Heartburn High cholesterol Rheumatoid arthritis Surgical History h/o finger surgery History of endometrial ablation S/P s/p tonsillectomy S/P tubal ligation Family History Father Colon cancerSon AsthmaMother Hypertension Social History Smoking Status: Never smoker alcohol intake: current alcohol intake frequency: holidays/special occasions only HPI CERVICAL SPINE Details: Parts of this documentation were recorded by a scribe, this documentation accurately reflects the service provided and the decisions made by me, Dr. Gerardo Guthrie, DO 10/24/22 1026. TIERRA PENA is a 47 year old F here today for F/U on her cervical spine pain. She states that she had a total of 3 injections in the cervical spine which did not help her at all. She denies any new imaging since the last visit. hx of anterior cervical interbody fusion C5-6 DOS: 12/17/21.This is a pinpoint spot over the right side of her cervical spine that is painful.?She states this pain is constant. her pain is a constant 5/10. She now has a pain over the left side of the neck which is pinpoint as well. However it is not as bad as the right side. SHe states that the pain is now more prominent on the right side than the left side. She has also now been having headaches which is happening daily, some days the headaches can be more intense than others. She states that her hands are also starting to fall sleep at night now. She is also having some dizziness when she lays flat on her back now. She has tried and failed massage, gabapentin and stretching. Returns for follow-up. Her pain is getting worse. She has posterior cervical tension cephalgia. Her neck pain is getting worse at the base of her neck. It starting to radiate down the back of both shoulders. Worse on the right side. It started going to the right arm. This is very disconcerting. On examination she has more pain with flexion than extension when we load the discs. Triceps strength is decreased on the right side compared to the left. She is areflexic of the right triceps reflex. All her symptoms that suggest that she has now herniated the C6-7 disc the level below the fusion. We are ordering an MRI scan of the cervical spine to be done as soon as possible. I will see her after the MRI scan and make further recommendations. Note that she has failed all conservative measures including massage, epidural and facet injections, home exercise program among others. Hence the need for an MRI scan of the cervical spine. Coding Level of Care Code Off vis,est,level 3 Diagnoses S/P cervical spinal fusion Z98.1 Herniated nucleus pulposus, C6-7 M50.223
[2023-06-09] VITALS (11 sets, daily range): BP systolic 120–166; BP diastolic 63–81; PULSE 84–105; RESP 16–18; TEMP 36.2–36.9; O2SAT 87–100; BMI 30.3
--- NOTE | 2023-06-09 | DISC_PTH ---
PATIENT: TIERRA PENA LOC: [facility] U#:[id number] AGE/SX: 48/F ROOM: [facility]317 RE06/09/[address]: Dr. Gerardo Guthrie DO : 1975 BED: 1 DIS: 06/10/2023 SPEC #: [id number] RECD: 06/09/23 14:15 STATUS: JORDANA VICTORIA #: [id number] BETTY: 06/09/23 00:[address]: Gerardo Guthrie DEPT: SURGICAL PATHOLOGY RECD BY: Juan Ramon Rachel ENTERED: 06/10/23 07:33 SP TYPE: DISC OTHR DR: MD Dr. Paula Spears MD Tissues: Intervertebral disc, NOS Procedures: Surgery Specimen Level III HEADER OPERATION: ERAS, anterior cervical fusion C6-7 PRE-OP DIAGNOSIS: Herniated nucleus pulposus TISSUE SUBMITTED: Cervical disc MICROSCOPIC DIAGNOSIS Intervertebral disc, C6-7, discectomy: Fragments of intervertebral disc with degenerative change. AM:rudy 06/11/2023 MICROSCOPIC DESCRIPTION Slides are reviewed. GROSS DESCRIPTION Received in fixative is one container labeled with the patient's name and designated cervical disc. The specimen consists of multiple irregular and indurated fragments of light rivas-white soft tissue that in aggregate measure 2.5 x 2.0 x 0.2 cm. The specimen is totally submitted in one cassette. / AM:rudy 06/10/2023 TC:5 CPT: 46978
[2023-06-09] MEDS: Acetaminophen 500 MG Tablet 1000 MG PO ×3 (06:11→22:20)
[2023-06-09] MEDS: dexAMETHasone 10 MG/ML Vial 8 MG IV (06:22)
[2023-06-09] MEDS: Magnesium 1 GM over 15 mins IV (06:24)
[2023-06-09] MEDS: Lactated Ringers 1,000 ML 15 ML IV (06:25)
[2023-06-09 06:46] LABS: Bedside Glucose 87 mg/dL (74-106)
[2023-06-09] MEDS: Cefazolin 2 GM in 0.9% Normal Saline (100mL Bag) 100 ML IV (08:04)
--- NOTE | 2023-06-09 08:25 | RAD_ITS ---
STUDY: X-RAY - CERVICAL SPINE REASON FOR EXAM: Female, 48 years old. CERVICAL FUSION C6-7 TECHNIQUE: Single lateral view(s) of the cervical spine were obtained. COMPARISON: None FINDINGS: The localization instrument is seen along the anterior-inferior aspect of the C6 vertebrae. RAD/Spine 1 View Any Level IMPRESSION: The localization instrument is seen along the anterior inferior aspect of the C6 vertebrae. Prior fusion at the C5-C6 level with prosthetic disc placement. Electronically Signed: Jerome Fay MD at 8:58 EST ,
[2023-06-09] MEDS: Heparin 10,000 UNITS/10 ML Vial 10000 UNITS (09:00)
[2023-06-09] MEDS: THROMBIN (RECOMBINANT) 20,000 UNIT VIAL 20000 UNIT TOPICAL (09:00)
--- NOTE | 2023-06-09 09:57 | RAD_ITS ---
STUDY: X-RAY - CERVICAL SPINE REASON FOR EXAM: Female, 48 years old. ERAS CERVICAL FUSION C6-7 TECHNIQUE: Single lateral view(s) of the cervical spine were obtained. COMPARISON: Comparison is made with prior examination earlier today. FINDINGS: The localization instrument is seen along the C6-C7 disc space level. RAD/Spine 1 View Any Level IMPRESSION: The localization instrument is seen along the C6-C7 disc space level. Electronically Signed: Jerome Fay MD at 10:44 EST ,
--- NOTE | 2023-06-09 11:15 | RAD_ITS ---
STUDY: X-RAY - LUMBAR SPINE REASON FOR EXAM: Female, 48 years old. ERAS CERVICAL FUSION C6-7 -- #3 IMAGE TECHNIQUE: Single lateral view(s) of the lumbar spine were obtained. COMPARISON: Comparison is made with prior study done earlier today. FINDINGS: The patient is status post ERAS cervical fusion at the C6-C7 level. RAD/Spine 1 View Any Level IMPRESSION: Anterior cervical fusion at the C6-C7 level with prosthetic disc placement. Electronically Signed: Jerome Fay MD at 12:27 EST ,
--- NOTE | 2023-06-09 12:07 | OP.PCM_ITS ---
Report of Operation Description of Surgical Findings:: Preoperative diagnosis: Herniated disc C6-7 on the right Postoperative diagnosis: Same Procedures: #1 anterior cervical fusion C6-7 CPT code 84390 #2 insertion of stand-alone cage C6-7 CPT code 62840 # 3 bone marrow aspirate from right iliac crest CPT code 82678 #4 spongy allograft bone CPT code 53597 Surgeon: Dr. Guthrie Air Duct Mechanic: Lory Purdy NP Anesthesia: General endotracheal by [facility] EBL: Less than 30 cc Drains: 1/4 inch [place] Complications: None Procedure: Patient was taken to the OR where she was placed in the supine position on the operating table. She was then placed under general endotracheal anesthesia. A Khan catheter was inserted. Neuromonitoring placed their leads on the patient. The right crest and the cervical spine were then prepped and draped in standard fashion. We obtained 60 cc of bone marrow aspirate from the right iliac crest this was done through a small puncture incision followed by the insertion of a Jamshidi needle and the BMA was obtained this was then handed off to the ground water technician in the room who spun down the blood with a specialized centrifuge the stem cells from all the other cells and concentrated them 10 times. This was given back to us on the field. I then made my incision I note that it was a predetermined prior to the prep with a needle taped to the side of the neck so that we would know where to start the incision this was then marked with a small laceration using the end of a needle started incision at that point working from the patient's left side. Because she had the old surgery done about a year ago at C5/6 that I performed from the right side this prompted us to perform the surgery from the left side this time to minimize scar tissue. However in spite of that I encountered quite a bit of scar tissue on the way down to the C6/7 level. I exploited the precervical fascia I went medial to the sternocleidomastoid finally was able to find that the spine note that there was scar throughout the precervical area. We thought we found that the level was marked with a needle was found to be C7-T1 we simply moved up 1 level placed the needle at C6-7 and took an x-ray to confirm that that was it. I also encountered the bottom of the plate at C5-6 which also confirmed the level. The self-retaining retractors were put in place it was difficult to keep in that way however and we had to manually push them up to stay on the disc space. I elevated the coli muscles on either side and cauterized the edges. Then placed the self-retaining greenbelt retractors in place under the colon on both sides and then with smooth blades up and down to give us enough room for the surgery. I then remove the anterior annulus with a 15 blade and worked to get more nucleus from within the disc space all the way back to near the posterior longitudinal ligament. I then used curettes to curette the cartilage off both endplates. Self-retaining tractor was then put put on the patient's left side of the interspace. This gave me a little more room to work on the right. Using a myrna bur I burred the uncinate process and the back of the C6 vertebra until disc was seen I then began removal of the disc for it with nerve hooks. Once the herniated disc on the right side was removed I then checked the foramen of course with a nerve hook was found to be quite intact with no more pressure on the C7 nerve root. I then removed remaining cartilage off both endplates. I used a myrna bur to gain just a little rim on both the left and right side to flatten the anterior surface of both vertebra. I then took measurements for a cage we decided on a 7 mm stand-alone cage. I did use a broach to broach the space to have good bleeding endplate bone. I filled the stand-alone cage with allograft bone that was spent spongy as it was processed that way. This was from the [place] tissue bank at the [facility]. We then soaked the allograft in the patient's own stem cells and then I tamped into place and countersunk it just slightly. We then used the first of the 2 screws 1 into C6 and wanted to C7. I did use an awl first use start the hole followed by the insertion of the screws at the appropriate angles again wanted to see 6 and wanted to C7. This was then observed on the plain x-ray that demonstrated excellent position of the 2 screws and the cage. Note in the course of the case we thoroughly irrigated with copious amounts of sterile saline quite often. We had good hemostasis at this point we placed an amniotic membrane over the cage t o prevent its adhesions to the trachea or the esophagus. We placed a 1/4 inch [place] drain in place and closed the platysma in running fashion with 5-0 Vicryl. We then closed subcutaneous tissues with 5-0 Vicryl in interrupted fashion and this approximated the skin and there was no need for outside stitches. Sterile dressings were then applied. Note that we did put a safety pin through the drain to prevent its suction into the wound. The patient was then recovered in the OR she was moved to her hospital bed and taken to recovery in satisfactory condition. This is the end of operative summary on Georgia Malcolm. This is Dr. Guthrie dictating.
[2023-06-09] MEDS: dexAMETHasone 4 MG/ML Vial IV ×2 (12:32→18:22)
[2023-06-09] MEDS: Morphine 4 MG/ML Syringe IV ×2 (13:38→16:05)
[2023-06-09] MEDS: Lactated Ringers 1,000 ML 100 ML IV (16:03)
[2023-06-09] MEDS: Ondansetron 4 MG/2 ML Vial IV (16:05)
[2023-06-09] MEDS: Cefazolin 1 GM/50 ML BAG IV (16:05)
--- NOTE | 2023-06-09 16:55 | PCM.PN.HOSP ---
Reason for Visit Reason for Visit: Diagnoses Encounter for other preprocedural examination (06/09/23) Subjective Subjective Orthopedic surgery primary, patient had surgery done for herniated cervical disc earlier today. Medicine consulted for medical management. Patient seen at bedside this evening after her procedure. Patient was lying in bed with lights off, was present at bedside. Patient and state that she has had a significant headache since leaving the operating room. She does have a history of headaches and this feels fairly similar to those headaches. Typically takes Aleve at home for headaches with moderate relief. Patient otherwise denies any significant neck pain postoperatively. She denies any fevers or chills, chest pain, shortness of breath. No other acute pain or discomfort. No other acute concerns this time. Objective Data Objective Data Vital Signs: Vital Signs Temp Pulse Resp BP Pulse Ox O2 Del Method O2 Flow Rate 98.0 F 97 18 132/71 H 100 Room Air 4 06/09/23 15:38 06/09/23 15:38 06/09/23 15:38 06/09/23 15:38 06/09/23 15:38 06/09/23 16:13 06/09/23 13:12 Oxygen Flow Rate (L/min) 4 Oxygen Delivery Method Room Air Weight: 77.655 kg Body Mass Index (BMI) 30.3 Intake & Output: Intake and Output for Last 24 Hours 06/07/23 06/08/23 06/09/23 23:59 23:59 23:59 Intake Total 413.25 / 413.25 Output Total 70 / 70 Balance 343.25 / 343.25 Lab / Micro Data 05/29/23 09:03 05/29/23 09:03 Labs: Laboratory Results - last 24 hr 06/09/23 05:59: POC Glucose 87 Micro: Microbiology 05/29/23 09:03 Swab (Method) Nasal Screen MRSA/MSSA - Final Radiography Diagnostic Testing: Radiology Impression Spine X-Ray 06/09/23 08:25 IMPRESSION: The localization instrument is seen along the anterior inferior aspect of the C6 vertebrae. Prior fusion at the C5-C6 level with prosthetic disc placement. Electronically Signed: Jerome Fay MD at 8:58 EST , Spine X-Ray 06/09/23 09:57 IMPRESSION: The localization instrument is seen along the C6-C7 disc space level. Electronically Signed: Jerome Fay MD at 10:44 EST , Spine X-Ray 06/09/23 11:15 IMPRESSION: Anterior cervical fusion at the C6-C7 level with prosthetic disc placement. Electronically Signed: Jerome Fay MD at 12:27 EST , Physical Exam Const alert, oriented x3, no apparent distress, healthy appearing and well nourished Constitutional Narrative: Pleasant middle-age female, obese, laying comfortably in bed, conversing normally, in mild distress due to headache. General Appearance: cooperative and comfortable HEENT normocephalic, head/scalp atraumatic, hearing grossly normal bilaterally, nasal mucous membranes and turbinates normal and moist oral mucous membranes Eyes PERRL, EOMs intact bilaterally and conjunctivae normal Neck no lymphadenopathy and supple Neck Narrative: Surgical site appears grossly normal. Lymph Lymphatic: no lymphadenopathy noted Chest inspection of chest normal Resp normal respiratory effort, normal air movement, no use of accessory muscles and clear to auscultation bilaterally Cardio regular rate, regular rhythm, no murmurs and peripheral pulses 2+ throughout GI normal to inspection, nondistended, normoactive bowel sounds, soft to palpation, non-tender and non-distended Back/Spine normal ROM Extremity normal to inspection, full ROM and no pedal edema Skin no rashes or lesions noted Neuro moves all extremities and no focal motor deficits Speech: speech normal Psych mental status grossly normal Assessment & Plan Assessment/Plan (1) Herniated nucleus pulposus, C6-7: (2) S/P cervical spinal fusion: PLAN: Plan Patient is a 48-year-old female who presented to [facility] on 06/09/2023 for a planned procedure for herniated disc at C6-7. Medicine consulted postoperatively for medical management. 1. Herniated disc C6-7 on the right S/p anterior cervical fusion C6-7, insertion of stand-alone cage C6-[address] Guthrie with orthopedics on 06/09. Patient tolerated procedure well, no immediate postoperative complications. ? Orthopedic surgery primary. Pain management with scheduled Tylenol, IV morphine as needed, p.o. oxycodone as needed. PT/OT/case management following. Follow-up a.m. labs. If patient remains stable, likely discharge home tomorrow. 2. Postoperative headache ? Patient reports history of headaches, and postoperative headache is similar to previous headaches. Vitals stable, neuro exam grossly normal. On scheduled Tylenol for pain as noted above. Will give headache cocktail of IV Benadryl and IV Compazine once, monitor response. Chronic medical conditions: ? Hyperlipidemia: Continue home rosuvastatin ? Rheumatoid arthritis: Continue etanercept weekly on discharge. DVT prophylaxis: Lovenox CODE STATUS: Full code, unverified Expected disposition: Home, tomorrow Total clinical time spent by myself addressing the patient's medical issues, reviewing all the data, and collaborating with patient's care team: 25 minutes. Charges/Coding Visit Charges Inpatient E&M: 63301 Subs Hosp L1
[2023-06-09] MEDS: DiphenhydrAMINE 50 MG/ML Syringe 25 MG IV (18:22)
[2023-06-09] MEDS: proCHLORPERazine 10 MG/2 ML Vial IV (18:23)
[2023-06-09] MEDS: Atorvastatin Calcium 20 MG Tablet PO (22:20)
[2023-06-10 00:13] VITALS: BP 108/62; PULSE 96; RESP 18; TEMP 36.7; O2SAT 94
[2023-06-10] MEDS: Cefazolin 1 GM/50 ML BAG IV (00:18)
[2023-06-10] MEDS: dexAMETHasone 4 MG/ML Vial 2 MG IV ×2 (00:19→06:27)
[2023-06-10 04:30] VITALS: BP 126/73; PULSE 94; RESP 16; TEMP 36.6; O2SAT 94
[2023-06-10] MEDS: Acetaminophen 500 MG Tablet 1000 MG PO (06:27)
[2023-06-10 07:40] VITALS: BP 132/75; PULSE 100; RESP 18; TEMP 36.6; O2SAT 98
[2023-06-10 08:03] LABS: Hematocrit 34.1 % (37-47); Hemoglobin 11.4 g/dL (12.0-15.0); Mean Corp Hgb Conc 33.4 g/dL (32-36); Mean Corpuscular Hgb 32.1 pg (27.0-32.0); Mean Corpuscular Volume 96.1 fL (81-99); Mean Platelet Vol. 9.9 fl (6.2-12.0); Platelet Count 316 K/mm3 (150-450); RBC Distribution Width CV 13.7 % (11.6-14.6); RBC Distribution Width SD 48.7 fl (35.1-43.9); Red Blood Count 3.55 M/mm3 (4.2-5.4); White Blood Count 11.6 K/mm3 (4.4-11.0)
[2023-06-10] MEDS: Enoxaparin 40 MG/0.4 ML Syringe SC (09:45)
[2023-06-10 09:53] LABS: Anion Gap 6 (5-15); BUN 7 mg/dL (7-18); BUN/Creat Ratio 7.7 RATIO (10-20); Calcium,Total 8.5 mg/dL (8.5-10.1); Chloride 108 mmol/L (98-107); EST Glomerular Filtration Rate 71 mL/min (>60); Est Glom Filt Rate - Afr Amer 86 mL/min (>60); Estimated Creatinine Clearance 63.92 ml/min; Glucose 158 mg/dL (74-106); Potassium 3.8 mmol/L (3.5-5.1); Sodium Level 138 mmol/L (136-145)
--- NOTE | 2023-06-10 11:34 | CASEMGMT ---
MARVA HAWLEY Assessment: Face to Face with pt for initial transition planning/care coordination assessment. MARVA HAWLEY introduced self and role at [facility], pt voices understanding and consents to assessment. Pt's daughter, Jordyn, is also present in the room per pt's permission. Pt is A&O x4 and answers all questions appropriately at this time. Care providers, pharmacy, and demographics verified/updated. Admitting Dx: Anterior Cervical Fusion C6-7 PCP: Raji Specialists: Sepideh Del Valle (Soap Slabber), [facility] (Pain Management), [place] (Orthopedic) [facility] Retail Insurance: [employer] Prescription Benefit: yes LNOK:Dwight Malcolm () Living Will/HCPOA: Yes and Yes; is HCPOA Living Arrangements: Pt lives at home with her and two children. Ranch-style home with laundry and office in basement. 1 step no railing to enter and 13 steps w/railing to basement. Prior to this admission, pt. states she was ambulating steps well. Pt. is I in all ADLs/IADLs. Transportation: Self, , daughter DME: Crutches, pulse ox. Denies need for additional DME at this time. HHC/SNF: Denies previous SNF/HHC. Pt states no concerns with going home at time of dc. Pt states no further concerns/needs. CM to follow. Advised pt to ask CM if any further question/concerns/needs arise, voices understanding. Pt Goal: Home with family support Plan: Home with family support and follow-up plans in place. Pt. denies need for any HHC to assist with her dressing. States this is the second time she has gone through this type of surgery. No further needs or concerns related to discharge voiced at this time.
--- NOTE | 2023-06-10 12:08 | DCINST_ITS ---
Discharge Instructions Activity May shower in (days): 4 May resume sexual activity in: 4 weeks Lifting Restrictions: 15# Dressing / Incision Remove Dressing in: 3 days Follow Up Care Test Results: Test results from this visit will be discussed in further detail at your follow- up appointment, if applicable. Discharge Plan Admission Admit Date/Time: 06/09/23 11:59 Primary Reason for Your Visit: cervical fusion Attending Provider: Gerardo Guthrie Primary Care Provider: Jose Luis Alegria Consulting Providers: Paula Cherry Discharge Orders/Prescriptions Prescriptions: No Action naproxen sodium [Aleve] 220 mg capsule 220 mg PO BID PRN (Reason: Pain) Enbrel 50 mg/mL (1 mL) syringe 50 mg subcut QWEEK cholecalciferol (vitamin D3) 1,000 UNIT tablet 1,000 unit PO QODAY ascorbic acid (vitamin C) [Vitamin C] 500 mg Tablet 1,000 mg PO QODAY diphenhydramine HCl [Sleep Aid (diphenhydramine)] 25 mg Capsule 25 mg PO QHS PRN (Reason: Insomnia) coenzyme Q10 [CoQ-10] 100 mg Capsule 100 mg PO QHS rosuvastatin [Crestor] 10 mg Tablet 10 mg PO QHS Other Ambulatory Orders: 12 Lead EKG (Routine) Timeframe: [id number] Location: None Selected Ordered By: Dr. Gerardo Guthrie Referrals / Follow Up: Jose Luis Alegria MD [Primary Care Provider] - Disposition Disposition (needs filled in before D/C Order can be placed): Home, Self Care
--- NOTE | 2023-06-10 12:10 | PCM.DC.SUM ---
Providers Date of Admission: 06/09/23 Primary Care Physician: Dr. Jose Luis Alegria MD Consultations 06/09/23 12:27 Consult: Hospitalist Routine Consulting Provider: John Ennis Reason for Consult: med management EMERGENT Consult: No MD Notified: Yes Date Notified: 06/09/23 Time Notified: 15:23 Method of Notification: Text Reason For Visit: Anterior Cervical Fusion C6-7 Diagnosis Discharge Diagnosis (1) Herniated nucleus pulposus, C6-7: Status: Acute Code(s): M50.223 - Other cervical disc displacement at C6-C7 level (2) S/P cervical spinal fusion: Status: Acute Code(s): Z98.1 - Arthrodesis status Plan This is a summary on Georgia Malcolm. Georgia was admitted yesterday 09 June. She has been discharged today the . Upon admission she underwent anterior cervical fusion at C6-7 with a stand-alone cage. On rounds today I changed her dressing and removed her drain. The incision is healing well. She is not having any difficulty swallowing and her voice is clear. She states that she does not have much pain at all. The right arm pain is completely resolved and as are her right-sided headaches. She is very pleased with her apparent outcome as I am also. I gave her and her daughter Jordyn directions regarding her activities. He already has an appointment to see me in the [id number] future I will give her some oxycodone 5 mg/325's for pain at home. This is the end of discharge summary on Georgia Malcolm. This is Dr. Guthrie dictating. Medications at Discharge Home Medications naproxen sodium 220 mg capsule (Aleve) 220 mg PO BID PRN Pain 11/29/18 cholecalciferol (vitamin D3) 25 mcg (1,000 unit) tablet 1,000 unit PO QODAY SUPPLEMENT 12/20/18 ascorbic acid (vitamin C) 500 mg tablet (Vitamin C) 1,000 mg PO QODAY SUPPLEMENT 12/05/21 coenzyme Q10 100 mg capsule (CoQ-10) 100 mg PO QHS SUPPLEMENT 12/05/21 diphenhydramine HCl 25 mg capsule (Sleep Aid (diphenhydramine)) 25 mg PO QHS PRN Insomnia 12/05/21 rosuvastatin 10 mg tablet (Crestor) 10 mg PO QHS CHOLESTEROL 12/05/21 etanercept 50 mg/mL (1 mL) subcutaneous syringe (Enbrel) 50 mg subcut QWEEK 11/14/22 Weight / BMI Weight Weight: 171 lb 3.2 oz Body Mass Index (BMI) 30.3 ABG / Lab / Microbiology Data 06/10/23 07:29 06/10/23 07:29 Laboratory: Laboratory Results - last 24 hr 06/10/23 07:29: WBC 11.6 H, RBC 3.55 L, Hgb 11.4 L, Hct 34.1 L, MCV 96.1, MCH 32.1 H, MCHC 33.4, RDW Std Deviation 48.7 H, RDW Coeff of Peggy 13.7, Plt Count 316, MPV 9.9, Sodium 138, Potassium 3.8, Chloride 108 H, Carbon Dioxide 24.0, Anion Gap 6, BUN 7, Creatinine 0.90, Estim Creat Clear Calc 63.92, Est GFR (MDRD) Af Amer 86, Est GFR (MDRD) Non-Af 71, BUN/Creatinine Ratio 7.7 L, Glucose 158 H, Calcium 8.5 Microbiology: Microbiology 05/29/23 09:03 Swab (Method) Nasal Screen MRSA/MSSA - Final Radiography Diagnostic Testing: Radiology Impression Spine X-Ray 06/09/23 11:15 IMPRESSION: Anterior cervical fusion at the C6-C7 level with prosthetic disc placement. Electronically Signed: Jerome Fay MD at 12:27 EST Reading Location ID and State: [address] [place] [address] , Service support , D/C Instructions May shower in (days): 4 May resume sexual activity in: 4 weeks Meaningful Use Info Meaningful Use Diagnoses (Choose all that apply): None applicable Discharge Plan Admission Admit Date/Time: 06/09/23 11:59 Primary Reason for Your Visit: cervical fusion Attending Provider: Gerardo Guthrie Primary Care Provider: Jose Luis Alegria Consulting Providers: Paula Cherry Discharge Orders/Prescriptions Prescriptions: No Action naproxen sodium [Aleve] 220 mg capsule 220 mg PO BID PRN (Reason: Pain) Enbrel 50 mg/mL (1 mL) syringe 50 mg subcut QWEEK cholecalciferol (vitamin D3) 1,000 UNIT tablet 1,000 unit PO QODAY ascorbic acid (vitamin C) [Vitamin C] 500 mg Tablet 1,000 mg PO QODAY diphenhydramine HCl [Sleep Aid (diphenhydramine)] 25 mg Capsule 25 mg PO QHS PRN (Reason: Insomnia) coenzyme Q10 [CoQ-10] 100 mg Capsule 100 mg PO QHS rosuvastatin [Crestor] 10 mg Tablet 10 mg PO QHS Other Ambulatory Orders: 12 Lead EKG (Routine) Timeframe: [id number] Location: None Selected Ordered By: Dr. Gerardo Guthrie Referrals / Follow Up: Jose Luis Alegria MD [Primary Care Provider] - Disposition Disposition (needs filled in before D/C Order can be placed): Home, Self Care
[2023-06-10 12:45] VITALS: BP 121/67; PULSE 95; RESP 18; TEMP 36.6; O2SAT 100
--- NOTE | 2023-06-10 13:04 | PN_ITS ---
Subjective Subjective Patient seen and examined. She had no active complaints. She said her headache had improved. Pain is well controlled. Review of systems is otherwise negative. Objective Data Objective Data Vital Signs: Vital Signs Temp Pulse Resp BP Pulse Ox O2 Del Method O2 Flow Rate 97.9 F 95 18 121/67 H 100 Room Air 4 06/10/23 12:45 06/10/23 12:45 06/10/23 12:45 06/10/23 12:45 06/10/23 12:45 06/10/23 12:45 06/09/23 13:12 Oxygen Flow Rate (L/min) 4 Oxygen Delivery Method Room Air Weight: 171 lb 3.2 oz Body Mass Index (BMI) 30.3 Intake & Output: Intake and Output for Last 24 Hours 06/08/23 06/09/23 06/10/23 23:59 23:59 23:59 Intake Total 1039.92 / 1039.92 950 / 950 Output Total 120 / 120 1500 / 1500 Balance 919.92 / 919.92 -550 / -550 Lab / Micro Data 06/10/23 07:29 06/10/23 07:29 Labs: Laboratory Results - last 24 hr 06/10/23 07:29: WBC 11.6 H, RBC 3.55 L, Hgb 11.4 L, Hct 34.1 L, MCV 96.1, MCH 32.1 H, MCHC 33.4, RDW Std Deviation 48.7 H, RDW Coeff of Peggy 13.7, Plt Count 316, MPV 9.9, Sodium 138, Potassium 3.8, Chloride 108 H, Carbon Dioxide 24.0, Anion Gap 6, BUN 7, Creatinine 0.90, Estim Creat Clear Calc 63.92, Est GFR (MDRD) Af Amer 86, Est GFR (MDRD) Non-Af 71, BUN/Creatinine Ratio 7.7 L, Glucose 158 H, Calcium 8.5 Micro: Microbiology 05/29/23 09:03 Swab (Method) Nasal Screen MRSA/MSSA - Final Physical Exam Const alert, oriented x3 and no apparent distress General Appearance: cooperative and well developed HEENT normocephalic, head/scalp atraumatic, moist oral mucous membranes and oropharynx normal Eyes PERRL and EOMs intact bilaterally Neck no lymphadenopathy and supple Lymph Lymphatic: no lymphadenopathy noted and no lymphedema noted Resp normal respiratory effort, normal air movement and clear to auscultation bilaterally Cardio regular rate, regular rhythm, S1 normal heart sound, S2 normal heart sound and no murmurs GI normal to inspection, nondistended, normoactive bowel sounds, soft to palpation, non-tender and non-distended Extremity normal capillary refill, no clubbing, cyanosis or edema and no calf tenderness Skin Skin Narrative: dressing over surgical site in anterior neck Neuro CN's II-XII intact bilaterally, no focal motor deficits, no sensory deficits noted and deep tendon reflexes 2+ bilaterally Motor Exam: strength 5/5 throughout and general weakness Psych thought process normal and cooperative Appearance: appropriate Assessment & Plan Assessment/Plan (1) Herniated nucleus pulposus, C6-7: (2) S/P cervical spinal fusion: PLAN: Plan #Right herniated disc s/p anterior cervical fusion at C6-7 * s/p anterior cervical fusion. * on PO tylenol, IV morphine and PO oxycodone for pain. * management as per spine surgery * #Post op headache: resolved. #HYperlipidemia: on rosuvstatin #Rheumatoid arthritis: etanercept weekly DVT prophylaxis; lovenox Charges/Coding Visit Charges Inpatient E&M: 18698 Subs Hosp L2
== END 2023-06-10 13:17 | disposition home or self-care (01) ==
LOC: SDC 13:22 → MS3 13:22
PROVIDERS: Hospitalist; Admitting Provider Orthopaedic Surgery; PCP Family Medicine; Referring Provider Orthopaedic Surgery; Visit Provider Orthopaedic Surgery
PROC: (CPT 22551; principal; 2023-06-09 07:00)
DX: M50.223 Other cervical disc displacement at C6-C7 level (principal); M06.9 Rheumatoid arthritis, unspecified; G44.209 Tension-type headache, unspecified, not intractable; E78.00 Pure hypercholesterolemia, unspecified; Z79.899 Other long term (current) drug therapy
CPT/HCPCS: 22551; 22853; 20939; 20930; 00670; 36415; 72020; 80048; 82962; 83735; 85025; 85027; 86703; 86706; 86708; 86803; 87077; 87081; 88304; 93005; 94668; 96361; 96365; 96366; 96372; 96375; 96376; 97162; 99221; C1713; J7120; G0378; J2405; J3475

== ENCOUNTER → 2023-06-24 | Outpatient (CLI) | payer OTHER, SELFPAY ==
--- NOTE | 2023-06-24 09:20 | BI_ITS ---
MAMMOGRAPHY - BILATERAL SCREENING REASON FOR EXAM: Female, 48 years old. Routine annual screening examination. PERTINENT HISTORY: Non-contributory. Prior left ultrasound-guided breast biopsies. TECHNIQUE: Digital bilateral breast gato (3D mammographic acquisition) in the CC and MLO projections. 2-D mediolateral oblique (MLO) and craniocaudad (CC) views of both breasts were obtained. CAD: Full Field Digital Mammography with Computer Added Detection was performed. COMPARISON: Comparison is made with prior study dated June 16, 2022. FINDINGS: Breast Composition: The breasts are heterogeneously dense, which may obscure small masses. There are no dominant masses or suspicious calcifications. A tissue clip marker is once again seen in the deep central medial aspect of the left breast. A tissue clip marker is also seen within a faint nodule in the anterior upper lateral aspect of the left breast. The previously seen nodular density is most completely resolved. No other significant abnormalities are identified. There has been no significant change since the prior study. BI/SCRN MAMM (CAD)W/GATO BILAT IMPRESSION: Stable bilateral screening mammogram. Yearly follow-up mammogram recommended. (A) ASSESSMENT CATEGORY: BIRADS Category 2: Benign. A letter regarding these results will be sent to the patient by the facility within 30 days. Approximately 10% of breast cancers are not detected by mammography. A normal mammogram should not delay biopsy of a clinically suspicious abnormality. [id number] Electronically Signed: Jerome Fay MD at 10:54 EST ,
== END | disposition home or self-care (01) ==
LOC: OPBI 09:18
PROVIDERS: PCP Family Medicine; Referring Provider Family Medicine; Visit Provider Family Medicine
DX: Z12.31 Encounter for screening mammogram for malignant neoplasm of breast (principal)
CPT/HCPCS: 77063; 77067

== ENCOUNTER → 2023-09-02 | Outpatient (CLI) | payer OTHER, SELFPAY ==
[2023-09-07 10:08] LABS: HPV APTIMA, High Risk Negative (Negative)
== END | disposition home or self-care (01) ==
LOC: LABSPEC 12:11
PROVIDERS: PCP Family Medicine; Referring Provider Nurse Practitioner Women's Health; Visit Provider Nurse Practitioner Women's Health
DX: Z12.4 Encounter for screening for malignant neoplasm of cervix (principal)
CPT/HCPCS: 87624; 88175; G0145

== ENCOUNTER → 2023-10-23 | Outpatient (CLI) | payer OTHER, SELFPAY ==
[2023-10-23 15:42] LABS: Absolute Lymphocyte Count 1.66 X10^3/uL (0.83-4.51); Absolute Neutrophil Count 4.2 X10^3/uL (2.0-7.7); Basophil# 0.05 X10^3/uL; Basophil% 0.8 % (0-1); Eosinophil# 0.14 X10^3/uL; Eosinophils% 2.1 % (0-5); Hematocrit 37.3 % (37-47); Hemoglobin 12.4 g/dL (12.0-15.0); Lymphocyte # 1.66 X10^3/ul (0.83-4.51); Lymphocyte % 25.4 % (19-41); Mean Corp Hgb Conc 33.2 g/dL (32-36); Mean Corpuscular Hgb 31.6 pg (27.0-32.0); Mean Corpuscular Volume 94.9 fL (81-99); Mean Platelet Vol. 10.5 fl (6.2-12.0); Monocyte# 0.42 X10^3/uL; Monocyte% 6.4 % (0-10); NRBC Flagged by Analyzer 0 % (0-5); Neutrophil # 4.24 X10^3/uL (2.7-7.7); Platelet Count 314 K/mm3 (150-450); RBC Distribution Width CV 12.7 % (11.6-14.6); RBC Distribution Width SD 44.7 fl (35.1-43.9); Red Blood Count 3.93 M/mm3 (4.2-5.4); White Blood Count 6.5 K/mm3 (4.4-11.0)
[2023-10-23 16:19] LABS: ALB/GLOB Ratio 1.2 RATIO (0.9-2.4); AST(SGOT) 25 U/L (15-37); Alanine Aminotransfer ALT/SGPT 36 U/L (13-56); Alkaline Phosphatase 63 U/L (45-117); Anion Gap 2 (5-15); BUN 17 mg/dL (7-18); BUN/Creat Ratio 22.3 RATIO (10-20); Calcium,Total 9.3 mg/dL (8.5-10.1); Chloride 111 mmol/L (98-107); Cholesterol 164 mg/dL (200); Creatinine, Serum 0.76 mg/dL (0.55-1.02); EST Glomerular Filtration Rate 86 mL/min (>60); Est Glom Filt Rate - Afr Amer 105 mL/min (>60); Globulin 3.2 g/dL (2.2-4.2); Glucose 101 mg/dL (74-106); High Density Lipoprotein 58 mg/dL; Protein, Total 7.2 g/dL (6.4-8.2); Sodium Level 140 mmol/L (136-145); Triglycerides 127 mg/dL; Very Low Density Lipoprotein 25 mg/dL (5-40)
== END | disposition home or self-care (01) ==
LOC: MFPLAB 13:35
PROVIDERS: PCP Family Medicine; Visit Provider Family Medicine
DX: E78.5 Hyperlipidemia, unspecified (principal); E55.9 Vitamin D deficiency, unspecified
CPT/HCPCS: 36415; 80053; 80061; 82306; 85025

== ENCOUNTER → 2023-11-04 | Outpatient (CLI) | payer OTHER, SELFPAY ==
[2023-11-04 09:56] LABS: Absolute Lymphocyte Count 2.21 X10^3/uL (0.83-4.51); Absolute Neutrophil Count 3.8 X10^3/uL (2.0-7.7); Basophil# 0.07 X10^3/uL; Eosinophil# 0.19 X10^3/uL; Eosinophils% 2.7 % (0-5); Hematocrit 37.1 % (37-47); Hemoglobin 12.5 g/dL (12.0-15.0); Lymphocyte # 2.21 X10^3/ul (0.83-4.51); Lymphocyte % 31.4 % (19-41); Mean Corp Hgb Conc 33.7 g/dL (32-36); Mean Corpuscular Hgb 31.5 pg (27.0-32.0); Mean Corpuscular Volume 93.5 fL (81-99); Mean Platelet Vol. 10.5 fl (6.2-12.0); NRBC Flagged by Analyzer 0 % (0-5); Neutrophil # 3.84 X10^3/uL (2.7-7.7); Neutrophil % 54.6 % (47-70); Platelet Count 301 K/mm3 (150-450); RBC Distribution Width CV 12.4 % (11.6-14.6); RBC Distribution Width SD 42.5 fl (35.1-43.9); Red Blood Count 3.97 M/mm3 (4.2-5.4)
[2023-11-04 10:28] LABS: Estradiol 261.4 pg/mL; T4 Free Direct 0.77 ng/dL (0.76-1.46); Thyroid Stim Hormone (TSH) 6.78 uIU/mL (0.358-3.74)
[2023-11-04 12:06] LABS: Vitamin D,25 Hydroxy 57.4 ng/mL
[2023-11-05 03:07] LABS: Thyroid Peroxidase AB < 9 IU/mL (0-34)
== END | disposition home or self-care (01) ==
LOC: LAB 09:14
PROVIDERS: PCP Family Medicine; Referring Provider Nurse Practitioner Women's Health; Visit Provider Nurse Practitioner Women's Health
DX: E78.5 Hyperlipidemia, unspecified (principal); N95.1 Menopausal and female climacteric states; Z13.21 Encounter for screening for nutritional disorder
CPT/HCPCS: 36415; 82306; 82670; 83001; 84439; 84443; 85025; 86376

== ENCOUNTER → 2023-11-20 | Outpatient (CLI) | payer OTHER, SELFPAY ==
[2023-11-20 18:49] LABS: Follicle Stimulating Hormone 18.3 mIU/mL; T4 Free Direct 0.86 ng/dL (0.76-1.46)
[2023-11-22 08:07] LABS: Sex Hormone-binding Globulin 66.7 nmol/L (24.6-122.0); Thyroid Peroxidase AB < 9 IU/mL (0-34)
== END | disposition home or self-care (01) ==
LOC: MFPLAB 12:08
PROVIDERS: PCP Family Medicine; Visit Provider Family Medicine
DX: R68.82 Decreased libido (principal); R79.89 Other specified abnormal findings of blood chemistry
CPT/HCPCS: 36415; 83001; 83002; 84270; 84439; 84443; 86376

== ENCOUNTER → 2024-01-22 | Outpatient (CLI) | payer OTHER, SELFPAY ==
[2024-01-22 12:31] LABS: Absolute Lymphocyte Count 1.55 X10^3/uL (0.83-4.51); Absolute Neutrophil Count 2.5 X10^3/uL (2.0-7.7); Basophil# 0.02 X10^3/uL; Basophil% 0.4 % (0-1); Eosinophil# 0.31 X10^3/uL; Eosinophils% 6.4 % (0-5); Hematocrit 37.1 % (37-47); Hemoglobin 12.5 g/dL (12.0-15.0); Lymphocyte # 1.55 X10^3/ul (0.83-4.51); Lymphocyte % 31.8 % (19-41); Mean Corp Hgb Conc 33.7 g/dL (32-36); Mean Corpuscular Hgb 31.6 pg (27.0-32.0); Mean Corpuscular Volume 93.7 fL (81-99); Mean Platelet Vol. 10.7 fl (6.2-12.0); Monocyte# 0.49 X10^3/uL; Monocyte% 10.1 % (0-10); NRBC Flagged by Analyzer 0 % (0-5); Neutrophil # 2.49 X10^3/uL (2.7-7.7); Neutrophil % 51.1 % (47-70); Platelet Count 258 K/mm3 (150-450); RBC Distribution Width CV 12.5 % (11.6-14.6); RBC Distribution Width SD 43.2 fl (35.1-43.9); Red Blood Count 3.96 M/mm3 (4.2-5.4); White Blood Count 4.9 K/mm3 (4.4-11.0)
[2024-01-22 13:16] LABS: AST(SGOT) 28 U/L (15-37); Alanine Aminotransfer ALT/SGPT 36 U/L (13-56); Albumin, Serum 3.7 g/dL (3.2-5.0); Alkaline Phosphatase 78 U/L (45-117); Bilirubin, Direct 0.19 mg/dL (0.00-0.30); Cholesterol 145 mg/dL (200); Creatinine, Serum 0.61 mg/dL (0.55-1.02); EST Glomerular Filtration Rate 112 mL/min (>60); Est Glom Filt Rate - Afr Amer 136 mL/min (>60); Globulin 3.3 g/dL (2.2-4.2); High Density Lipoprotein 61 mg/dL; T4 Free Direct 0.72 ng/dL (0.76-1.46); Thyroid Stim Hormone (TSH) 3.27 uIU/mL (0.358-3.74); Triglycerides 100 mg/dL; Very Low Density Lipoprotein 20 mg/dL (5-40)
[2024-01-22 13:22] LABS: Vitamin D,25 Hydroxy 48.2 ng/mL
== END | disposition home or self-care (01) ==
LOC: MFPLAB 10:59
PROVIDERS: PCP Family Medicine; Referring Provider Internal Medicine Rheumatology; Visit Provider Internal Medicine Rheumatology
DX: E78.5 Hyperlipidemia, unspecified (principal); Z79.899 Other long term (current) drug therapy
CPT/HCPCS: 36415; 80061; 80076; 82306; 82565; 84439; 84443; 85025

== ENCOUNTER → 2024-01-26 | Outpatient (CLI) | payer OTHER, SELFPAY ==
[2024-01-28 08:13] LABS: Anti-Thyroglobulin AB < 1.0 IU/mL (0.0-0.9); Thyroglobulin, Serum Qt. 13.7 ng/mL (1.5-38.5); Thyroid Peroxidase AB 11 IU/mL (0-34); Thyroid Stim Immunoglob <0.10 IU/L (0.00-0.55)
== END | disposition home or self-care (01) ==
LOC: MFPLAB 09:00
PROVIDERS: PCP Family Medicine; Visit Provider Family Medicine
DX: R79.89 Other specified abnormal findings of blood chemistry (principal)
CPT/HCPCS: 36415; 84432; 84439; 84445; 86376; 86800

== ENCOUNTER → 2024-05-24 | Outpatient (CLI) | payer OTHER, SELFPAY ==
[2024-05-24 10:09] LABS: Absolute Lymphocyte Count 1.59 X10^3/uL (0.83-4.51); Basophil# 0.04 X10^3/uL; Basophil% 0.8 % (0-1); Eosinophil# 0.55 X10^3/uL; Eosinophils% 11.6 % (0-5); Hematocrit 35.9 % (37-47); Hemoglobin 12.1 g/dL (12.0-15.0); Lymphocyte # 1.59 X10^3/ul (0.83-4.51); Lymphocyte % 33.6 % (19-41); Mean Corp Hgb Conc 33.7 g/dL (32-36); Mean Corpuscular Volume 92.1 fL (81-99); Mean Platelet Vol. 10.9 fl (6.2-12.0); Monocyte# 0.53 X10^3/uL; Monocyte% 11.2 % (0-10); NRBC Flagged by Analyzer 0 % (0-5); Neutrophil # 2.01 X10^3/uL (2.7-7.7); Neutrophil % 42.6 % (47-70); Platelet Count 254 K/mm3 (150-450); RBC Distribution Width CV 12.6 % (11.6-14.6); RBC Distribution Width SD 42.2 fl (35.1-43.9); White Blood Count 4.7 K/mm3 (4.4-11.0)
[2024-05-24 10:44] LABS: ALB/GLOB Ratio 1.2 RATIO (0.9-2.4); AST(SGOT) 12 U/L (15-37); Alanine Aminotransfer ALT/SGPT 26 U/L (13-56); Albumin, Serum 3.6 g/dL (3.2-5.0); Alkaline Phosphatase 70 U/L (45-117); Anion Gap 5 (5-15); BUN 10 mg/dL (7-18); BUN/Creat Ratio 16.3 RATIO (10-20); Calcium,Total 8.7 mg/dL (8.5-10.1); Chloride 110 mmol/L (98-107); Cholesterol 140 mg/dL (200); Creatinine, Serum 0.62 mg/dL (0.55-1.02); EST Glomerular Filtration Rate 110 mL/min (>60); Est Glom Filt Rate - Afr Amer 133 mL/min (>60); Globulin 3.1 g/dL (2.2-4.2); Glucose 102 mg/dL (74-106); High Density Lipoprotein 44 mg/dL; Potassium 4.1 mmol/L (3.5-5.1); Protein, Total 6.7 g/dL (6.4-8.2); Sodium Level 139 mmol/L (136-145); T4 Free Direct 0.76 ng/dL (0.76-1.46); Triglycerides 233 mg/dL; Very Low Density Lipoprotein 47 mg/dL (5-40)
[2024-05-26 12:09] LABS: Vitamin D 1,25-Dihydroxy 67.7 pg/mL (24.8-81.5)
== END | disposition home or self-care (01) ==
LOC: MFPLAB 08:05
PROVIDERS: PCP Family Medicine; Visit Provider Family Medicine
DX: E55.9 Vitamin D deficiency, unspecified (principal); E03.9 Hypothyroidism, unspecified; E78.5 Hyperlipidemia, unspecified
CPT/HCPCS: 36415; 80053; 80061; 82652; 84439; 84443; 85025

== ENCOUNTER 2024-06-13 07:08 | Day surgery (SDC) | payer OTHER, SELFPAY ==
[2024-06-13] VITALS (7 sets, daily range): BP systolic 115–132; BP diastolic 62–78; PULSE 76–97; RESP 16–18; TEMP 36.2–36.3; O2SAT 97–98; BMI 28.9
--- NOTE | 2024-06-13 07:19 | HP.PCM_ITS ---
HPI - General General Date of Service: 06/13/24 HPI Narrative TIERRA PENA, is a 49 F who presents for a screening colonoscopy due to family history of colon cancer in her dad?in his 50s. Patient's last colonoscopy was 12/2018 negative. Patient has bowel movements daily denies any blood. Patient denies any chronic abdominal pain/nausea/vomiting and only occasional reflux depending what she eats.. [facility] Medical History (Updated 06/08/24 @ 09:52 by Katy Pollard) PONV (postoperative nausea and vomiting) Non-smoker High cholesterol Heartburn COVID-19 Anemia Rheumatoid arthritis Home Medications ?Medication ?Instructions ?Recorded ?Last Taken ?Type coenzyme Q10 100 mg capsule 100 mg PO QHS SUPPLEMENT 12/05/21 06/08/23 History (CoQ-10) diphenhydramine HCl 25 mg capsule 25 mg PO QHS PRN Insomnia 12/05/21 06/08/23 History (Sleep Aid (diphenhydramine)) rosuvastatin 10 mg tablet (Crestor) 10 mg PO QHS CHOLESTEROL 12/05/21 06/08/23 History etanercept 50 mg/mL (1 mL) 50 mg subcut QWEEK 11/14/22 05/29/23 History subcutaneous syringe (Enbrel) ondansetron HCl 4 mg tablet 4 mg PO TID PRN nausea and 08/17/23 Unknown Rx vomiting #90 tabs ascorbic acid (vitamin C) 500 mg 1 g PO DAILY SUPPLEMENT 12/16/23 Unknown History tablet (Vitamin C) cholecalciferol (vitamin D3) 25 5,000 unit PO DAILY SUPPLEMENT 12/16/23 Unknown History mcg (1,000 unit) tablet sumatriptan succinate 50 mg tablet 50 mg PO .COMPLEX #9 tabs 01/07/24 Unknown Rx leflunomide 20 mg tablet 20 mg PO QDAY 05/27/24 Unknown History meloxicam 15 mg tablet 15 mg PO QDAY 05/27/24 Unknown History vitamin A 2,400 mcg capsule 2,400 mcg PO QDAY 05/27/24 Unknown History levothyroxine 88 mcg tablet 88 mcg PO DAILY 06/08/24 Unknown History Allergy/AdvReac Type Severity Reaction Status Date / Time No Known Allergies Allergy Verified 06/08/24 09:15 Family History (Updated 05/27/24 @ 09:16 by Brenda Simental) Father Colon cancer, Onset Age: 50 Survives Son Asthma Mother Hypertension Surgical History Hx of colonoscopy S/P cervical spinal fusion (06/09/23) History of endometrial ablation h/o finger surgery s/p tonsillectomy S/P tubal ligation S/P Social History household members: spouse current occupational status: employed 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 [employer] Smoking Status: Never smoker alcohol intake: current alcohol intake frequency: holidays/special occasions only substance use type: does not use seatbelt use: always do you feel safe at home: Yes additional social history: - Dwight- Owns a [employer] Past Medical/Surgical History Planned Operation Planned Operative Procedure(s): CSCOPE S.O.S: No Previous Hospitalizations/Surgeries HX Hospitalizations: Yes (NECK FUSION) HX of Surgeries: R HAND MIDDLE FINGER BROKEN T&A & TUBAL RA Any Problems With Anesthesia: Yes (PONV) You/Your Family Experience Fever (Hyperthermia) With Anes: No Cholinesterase deficiency: No Cardiovascular Hx Chest Pain within Last 2 months: No Hx of Irregular Heartbeat and/or Afib: No Hx Heart Attack: No Hx Congestive Heart Failure: No Hx Rheumatic Fever: No Hx Hypertension: No Hx Internal Defibrillator: No Hx Pacemaker: No Hx Cardiac Catheterization: No Hx Cardiac Surgery/Stents/Etc.: No Hx Stress Test: No Hx Pain in Legs when Walking/Leg Cramps: No Respiratory Chronic Cough: No HX of Shortness of Breath: No Hoarseness: No Hx Chronic Obstructive Pulmonary Disease (COPD): No Hx Asthma: No Hx Emphysema: No Hx Sleep Apnea: No Hx Respiratory Tract Infection/Cold (presently): No Do You Snore Loudly (louder than talking or can be heard): No Do You Often Feel Tired/ Fatigued/ Sleepy Dring Daytime?: No Has Anyone Observed You Stop Breathing During Sleep?: No Result (for STOP score): Negative Hx Smoking: No Smoking Status: Never smoker Gastrointestinal Controlled With Meds: Yes (ZANTAC PRN) Hx Gastrointestinal Disorders: No Hx Gastrointestinal Bleed: No Hx Ulcer: No Hx Hiatal Hernia: No Difficulty Chewing/Swallowing: No Special diet followed at home: No Hx Unplanned Weight Loss of 20#: No HX Unplanned Weight Gain of 20#: No Neurological Hx Seizures: No HX Syncope/Blackout Spells/Unconsciousness: No Hx Transient Ischemic Attacks (TIA): No Hx Multiple Sclerosis: No Hx Parkinson's Disease: No Hx Head/Neck Injury: No Hx Headaches: No Hx Back Injury/Pain: No Recent Onset of Speech Difficulty: No Restless Legs: No Does patient have nerve stimulator: No Blood Disorder Hx Leukemia: No Bleeding Tendencies: No Hx Deep Vein Thrombosis: No Hx High Cholesterol: No Blood Transmitted Disease: No Hx Hepatitis: No Hx Cirrhosis: No Hx Anemia: Yes Hx Blood Disorders: No Reproduction Is Patient Lactating: No Hx Hysterectomy: No Hx Tubal Ligation: Yes Are You Post Menopause: No Genitourinary Hx Renal Disease: No Hx Dialysis: No Musculoskeletal Hx Arthritis: Yes (RA) Hx Rheumatoid Arthritis: Yes Hx Gout: No Recent Onset of an Orthopedic Problem: No Endocrine Hx Diabetes: No Thyroid Disease: No Hx Steroid Therapy: No Psycho/Social Hx Substance Use: No Hx Alcohol Use: No Hx Anxiety: No Hx Depression: No Mental Illness: No Hx Dementia: No Miscellaneous Hx Cancer: No Recent Exposure to Contagious Disease: No Hx of C-Diff: No Any Loose Teeth: No Allergies No Known Allergies Allergy (Verified 06/08/24 09:15) Discharge Is Pt Admitted From a Skilled Nursing, or a [place] [facility]: No After D/C, Where Do you Plan to Go: Return Home Physical Exam Const alert, oriented x3 and no apparent distress HEENT normocephalic and head/scalp atraumatic Resp normal respiratory effort Cardio regular rate GI soft to palpation and non-tender; Negative for non-distended Palpation: Negative for guarding Extremity no clubbing, cyanosis or edema Skin no rashes or lesions noted Neuro CN's II-XII intact bilaterally Psych mental status grossly normal Assessment & Plan Assessment/Plan (1) Family history of colon cancer in father: Surgery Risks - Colonoscopy I discussed with the patient the risks of the procedure: Yes Risks Include but are not Limited To: Risks include but are not limited to: Bleeding, perforation requiring further surgery, inability to complete colonoscopy requiring barium enema.
--- NOTE | 2024-06-13 07:44 | PRE.ANES_ITS ---
ASA Classification* ASA Classification ASA Classification: 2 Assessment & Plan Anesthesia* Anesthesia Assessment Anesthesia Assessment: Discussed sedation and/or anesthesia options, risks, benefits, and alternatives with patient/parents/legal guardian/POA. Questions invited. The patient/parents/legal guardian/POA seems to understand and agrees to proceed with anesthesia plan. Reviewed the physical assessment, medical history, allergy history and patient home medications list prior to surgery/procedure/anesthetic and documented any changes. Performed airway and anesthesia risk assessments. Anesthesia Type Anesthesia Type: MAC Anesthesia Focused Assessment* Temperature: 97.3 F Pulse Rate: 97 Blood Pressure: 132/77 Respiratory Rate: 18 Pulse Ox: 98 Airway Assessment Mouth opens: >3 cm Mallampati Score: II Focused Labs Anesthesia Preop lab: CBC WBC 4.7 K/mm3 (4.4-11.0) 05/24/24 08:05 RBC 3.90 M/mm3 (4.2-5.4) L 05/24/24 08:05 Hgb 12.1 g/dL (12.0-15.0) 05/24/24 08:05 Hct 35.9 % (37-47) L 05/24/24 08:05 Plt Count 254 K/mm3 (150-450) 05/24/24 08:05 CHEMISTRY Potassium 4.1 mmol/L (3.5-5.1) 05/24/24 08:05 Sodium 139 mmol/L (136-145) 05/24/24 08:05 Magnesium 2.2 mg/dL (1.6-2.6) 05/29/23 09:03 BUN 10 mg/dL (7-18) 05/24/24 08:05 Creatinine 0.62 mg/dL (0.55-1.02) 05/24/24 08:05 Glucose 102 mg/dL (74-106) 05/24/24 08:05 POC Glucose 87 mg/dL (74-106) 06/09/23 05:59 TSH 1.940 uIU/mL (0.358-3.740) 05/24/24 08:05 COAG Pre-Assessment Diagnosis/Proposed Procedure Planned Operative Procedure(s): CSCOPE Anesthesia History Anesthesia History - electronic news gathering editor: Anesthesia History - electronic news gathering editor Hx Hospitalization Yes: NECK FUSION 06/13/24 07:20 Any Problems With Anesthesia Yes: PONV 06/13/24 07:20 Cholinesterase deficiency No 06/13/24 07:20 You/Your Family Experience No 06/13/24 07:20 fever (hyperthermia) with Relationship Recent Exposure to Contagious No 06/13/24 07:29 Disease Does patient have nerve No 06/13/24 07:20 stimulator Patient instructed to have device shut off --Does patient have Pacemaker No 06/13/24 07:29 or ICD? When Was Last Pacemaker Check QUESTION #4 FULL TEXT: You/Your Family Experience fever (hyperthermia) with Anesthesia Last Oral Intake Last Oral intake: Last Oral Intake NPO since 04:00 06/13/24 07:29 Meds taken in AM with sips of Yes 06/13/24 07:29 water? Meds patient instructed to levothyroxine 06/13/24 07:29 take am of surgery PONV PONV - electronic news gathering editor: PONV - electronic news gathering editor Female Yes 06/08/24 09:19 HX of Motion Sickness Yes 06/08/24 09:19 HX of N/V After Surgery Yes 06/08/24 09:19 Non-Smoker Yes 06/08/24 09:19 Duration of Surgery greater No 06/08/24 09:19 than 60 minutes Number of Risk Factors 4 06/08/24 09:19 PONV Score Severe Risk 06/08/24 09:19 Height & Weight Height & Weight: Anesthesia: Height & Weight Height 5 ft 3 in 06/13/24 07:29 Weight: 74 kg 06/13/24 07:29 Body Mass Index (BMI) 28.9 06/13/24 07:29 Respiratory Assessment Respiratory Assessment - electronic news gathering editor: Respiratory Tract Infection Hx - electronic news gathering editor Hx Respiratory Tract Infection No 06/13/24 07:20 STOP Sleep Apnea STOP Sleep Apnea - electronic news gathering editor: STOP Sleep Apnea - electronic news gathering editor Hx Hypertension No 06/13/24 07:20 Hx Sleep Apnea No 06/13/24 07:20 CPAP BIPAP Do you snore loudly (louder No 06/13/24 07:20 than talking or can be heard Do you often feel tired/ No 06/13/24 07:20 fatigued/ sleepy during daytime? Has anyone observed you stop No 06/13/24 07:20 breathing during sleep? STOP Results Negative 06/13/24 07:23 QUESTION #5 FULL TEXT : Do you snore loudly (louder than talking or can be heard through closed doors)? Tobacco Use History Tobacco Use History - electronic news gathering editor: Tobacco Use History - electronic news gathering editor Tobacco Use Smoking Status Never smoker 06/13/24 07:20 Hx Tobacco Use No 06/08/24 09:19 Years Smoking Packs Smoked per Day Smoking Cessation Date was within the last 15 years Hx Smoking Cessation Date Hx Smoking Cessation Counseling Hematologic Medial History Hematologic Hx - electronic news gathering editor: Hematologic Medical Hx - plate keeper Hx of Blood Transfusion No 06/08/24 09:19 Hx of Transfusion in last 3 No 06/08/24 09:19 Months Date of Last Transfusion (if within last 3 months) Ever experience any problems No 06/08/24 09:19 with transfusion(s)? Specify any problems Hx of Preganancy in last 3 N/A 06/08/24 09:19 Months Nurse Filling Out Transfusion NBUCHER 06/08/24 09:19 & Questions: Date: 06/08/24 06/08/24 09:19 Time: 09:20 06/08/24 09:19 Patient unable to answer at this time (ie. confused, unrespo /Reproduction History /Reproductive History - electronic news gathering editor: /Reproductive Hx- electronic news gathering editor Hx Now Gestational Age (in weeks): EDC: Hx Hx Para Hx Section SAB No 06/08/24 09:19 PFSH Medical History PONV (postoperative nausea and vomiting) Non-smoker High cholesterol Heartburn COVID-19 Anemia Rheumatoid arthritis Home Medications ?Medication ?Instructions ?Recorded ?Last Taken ?Type coenzyme Q10 100 mg capsule 100 mg PO QHS SUPPLEMENT 12/05/21 06/08/23 History (CoQ-10) diphenhydramine HCl 25 mg capsule 25 mg PO QHS PRN Insomnia 12/05/21 06/08/23 History (Sleep Aid (diphenhydramine)) rosuvastatin 10 mg tablet (Crestor) 10 mg PO QHS CHOLESTEROL 12/05/21 06/08/23 History etanercept 50 mg/mL (1 mL) 50 mg subcut QWEEK 05/05/23 11/17/23 History subcutaneous syringe (Enbrel) ondansetron HCl 4 mg tablet 4 mg PO TID PRN nausea and 08/17/23 Unknown Rx vomiting #90 tabs ascorbic acid (vitamin C) 500 mg 1 g PO DAILY SUPPLEMENT 12/16/23 Unknown History tablet (Vitamin C) cholecalciferol (vitamin D3) 25 5,000 unit PO DAILY SUPPLEMENT 12/16/23 Unknown History mcg (1,000 unit) tablet sumatriptan succinate 50 mg tablet 50 mg PO .COMPLEX #9 tabs 01/07/24 Unknown Rx leflunomide 20 mg tablet 20 mg PO QDAY 05/27/24 Unknown History meloxicam 15 mg tablet 15 mg PO QDAY 05/27/24 Unknown History vitamin A 2,400 mcg capsule 2,400 mcg PO QDAY 05/27/24 Unknown History levothyroxine 88 mcg tablet 88 mcg PO DAILY 06/08/24 06/13/24 History Allergy/AdvReac Type Severity Reaction Status Date / Time No Known Allergies Allergy Verified 06/13/24 07:26 Family History Father Colon cancer, Onset Age: 50 Survives Son Asthma Mother Hypertension Surgical History Hx of colonoscopy S/P cervical spinal fusion (06/09/23) History of endometrial ablation h/o finger surgery s/p tonsillectomy S/P tubal ligation S/P Social History household members: spouse current occupational status: employed 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
--- NOTE | 2024-06-13 08:48 | OP.COLON_ITS ---
Patient Name: Georgia Malcolm Procedure Date: 06/13/2024 8:22 AM Date of : 1975 Age: 49 Procedure: Colonoscopy Indications: Screening in patient at increased risk: Colorectal cancer in father before age 60 Providers: Winosme Rangel MD Referring MD: Jose Luis Alegria Medicines: Monitored Anesthesia Care Patient Profile: This is a 49 year old female. Last Colonoscopy: December 2018. Complications: No immediate complications. Procedure: Pre-Anesthesia Assessment: - Prior to the procedure, a History and Physical was performed, and patient medications and allergies were reviewed. The patient's tolerance of previous anesthesia was also reviewed. The risks and benefits of the procedure and the sedation options and risks were discussed with the patient. All questions were answered, and informed consent was obtained. Prior Anticoagulants: The patient has taken no anticoagulant or antiplatelet agents. ASA Grade Assessment: Per anesthesia. After reviewing the risks and benefits, the patient was deemed in satisfactory condition to undergo the procedure. After I obtained informed consent, the scope was passed under direct vision. Throughout the procedure, the patient's blood pressure, pulse, and oxygen saturations were monitored continuously. The Colonoscope was introduced through the anus and advanced to the terminal ileum. The colonoscopy was performed without difficulty. The patient tolerated the procedure well. The quality of the bowel preparation was good. Scope In: 8:28:01 AM Scope Withdrawal Time 0 hours 7 minutes 25 seconds Scope Out: 8:41:56 AM Total Procedure Duration Time 0 hours 13 minutes 55 seconds Findings: Hemorrhoids were found on perianal exam. Non-bleeding internal hemorrhoids were found. The hemorrhoids were Grade I (internal hemorrhoids that do not prolapse). The entire examined colon appeared normal. The terminal ileum appeared normal. Impression: - Hemorrhoids found on perianal exam. - Non-bleeding internal hemorrhoids. - The entire examined colon is normal. - The examined portion of the ileum was normal. - No specimens collected. Recommendation: - Discharge patient to home. - Resume previous diet. - Continue present medications. - Repeat colonoscopy in 5 years for screening purposes. Procedure Code(s): --- Professional --- G0105, PT, Colorectal cancer screening; colonoscopy on individual at high risk Diagnosis Code(s): --- Professional --- Z80.0, Family history of malignant neoplasm of digestive organs K64.0, First degree hemorrhoids CPT copyright 2021 [employer]. All rights reserved. The codes documented in this report are preliminary and upon underlay stitcher review may be revised to meet current compliance requirements. MD Winsome Munoz MD 06/13/2024 8:47:44 AM This report has been signed electronically. Number of Addenda: 0 Note Initiated On: 06/13/2024 8:22 AM
--- NOTE | 2024-06-13 08:48 | OP.CCLET_ITS ---
06/13/2024 Jose Luis Alegria [address] [place] [address] Re : Colonoscopy procedure for Georgia Malcolm Dear Dr. Alegria This procedure was performed on Thursday, June 13, 2024. My impressions and recommendations are as follows: Impressions : - Hemorrhoids found on perianal exam. - Non-bleeding internal hemorrhoids. - The entire examined colon is normal. - The examined portion of the ileum was normal. - No specimens collected. Recommendations : - Discharge patient to home. - Resume previous diet. - Continue present medications. - Repeat colonoscopy in 5 years for screening purposes. My findings are described in the full procedure note, which is enclosed. If I can be of further assistance, please feel free to contact me at Doctor phone number(s): , Work: . Sincerely, MD Winsome Munoz MD 06/13/2024 8:47:44 AM This report has been signed electronically.
--- NOTE | 2024-06-13 08:49 | PCM.POST.ANE ---
Anesthesia: Postop Eval I Current Vital Signs Temperature: 97.1 F Pulse Rate: 88 Blood Pressure: 121/62 Respiratory Rate: 16 Pulse Ox: 97 Oxygen Delivery Method: Room Air Assessment Airway patent: Yes Spontaneous unlabored respirations: Yes Mental status: Awake and Calm nausea: No Vomiting: No Anesthesia Complication: No Fluid Hydration Crystalloid volume administer (ml): 50 Total IV fluid infused: 50 Progress Note Anesthesia document: Postop Eval 1 completed: Yes
--- NOTE | 2024-06-13 09:24 | PCM.POSTANE2 ---
Anesthesia Postop Eval I Sum Postop Eval Completion status Anesthesia document: Postop Eval 1 completed: Yes Anesthesia Postop Eval I Summary Anesthesia Postop Eval I Summary: Anesthesia Postop Eval I: Assessment Summary Airway patent Yes 06/13/24 08:51 [email or web address] Spontaneous unlabored Yes 06/13/24 08:51 [email or web address] respirations Mental status Awake,Calm 06/13/24 08:51 [email or web address] nausea No 06/13/24 08:51 [email or web address] Vomiting No 06/13/24 08:51 [email or web address] Anesthesia Postop Eval I: Fluid Summary Crystalloid volume administer 50 06/13/24 08:51 [email or web address] (ml) Colloids volume administered ( ml) Blood Product volume administered (ml) Total IV fluid infused 50 06/13/24 08:51 [email or web address] Anesthesia Postop Eval I: Summary Notes Anesthesia Complication No 06/13/24 08:51 [email or web address] Anesthesia Complication Comment: Post-operative progress note Anesthesia: Postop Eval II Evaluation Mental status: Awake Pain Level: 0 nausea: No Vomiting: No
== END 2024-06-13 09:21 | disposition home or self-care (01) ==
LOC: EN 07:08 → AC 07:09
PROVIDERS: PCP Family Medicine; Referring Provider Family Medicine; Visit Provider Surgery
PROC: 0DJD8ZZ Inspection of Lower Intestinal Tract, Via Natural or Artificial Opening Endoscopic (ICD-10-PCS; CPT 45378; principal; 2024-06-13 08:25)
DX: Z12.11 Encounter for screening for malignant neoplasm of colon (principal); K64.0 First degree hemorrhoids; E78.00 Pure hypercholesterolemia, unspecified; Z86.16 Personal history of COVID-19; Z80.0 Family history of malignant neoplasm of digestive organs; Z79.899 Other long term (current) drug therapy
CPT/HCPCS: 45378; A4216

== ENCOUNTER → 2024-06-29 | Outpatient (CLI) | payer OTHER, SELFPAY ==
--- NOTE | 2024-06-29 08:21 | BI_ITS ---
MAMMOGRAPHY - BILATERAL SCREENING REASON FOR EXAM: Female, 49 years old. Routine annual screening examination. PERTINENT HISTORY: Mother with breast cancer. Prior left ultrasound-guided breast biopsies. TECHNIQUE: Digital bilateral breast gato (3D mammographic acquisition) in the CC and MLO projections. 2-D mediolateral oblique (MLO) and craniocaudad (CC) views of both breasts were obtained. CAD: Full Field Digital Mammography with Computer Added Detection was performed. COMPARISON: Comparison is made with prior study dated June 24, 2023 and June 16, 2022. FINDINGS: Breast Composition: The breasts are heterogeneously dense, which may obscure small masses. There are no dominant masses or suspicious calcifications. A tissue clip marker is once again seen within the knee 0.3 mm nodule in the deep central medial aspect of the left breast. A second tissue clip marker is also seen in the 9.6 mm nodule in the anterior upper lateral aspect of the left breast. No other significant abnormalities are identified. There has been no significant change since the prior study. BI/SCRN MAMM (CAD)W/GATO BILAT IMPRESSION: Stable bilateral screening mammogram. Yearly follow-up mammogram recommended. (A) ASSESSMENT CATEGORY: BIRADS Category 2: Benign. A letter regarding these results will be sent to the patient by the facility within 30 days. Approximately 10% of breast cancers are not detected by mammography. A normal mammogram should not delay biopsy of a clinically suspicious abnormality. [id number] Electronically Signed: Jreome Fay MD at 9:35 EST ,
== END | disposition home or self-care (01) ==
LOC: OPBI 08:21
PROVIDERS: PCP Family Medicine; Referring Provider Nurse Practitioner Women's Health; Visit Provider Nurse Practitioner Women's Health
DX: Z12.31 Encounter for screening mammogram for malignant neoplasm of breast (principal)
CPT/HCPCS: 77063; 77067

== ENCOUNTER → 2024-08-23 | Outpatient (CLI) | payer OTHER, SELFPAY ==
[2024-08-23 10:13] LABS: Absolute Lymphocyte Count 1.58 X10^3/uL (0.83-4.51); Absolute Neutrophil Count 1.6 X10^3/uL (2.0-7.7); Basophil# 0.05 X10^3/uL; Basophil% 1.1 % (0-1); Hematocrit 36.5 % (37-47); Hemoglobin 11.8 g/dL (12.0-15.0); Lymphocyte # 1.58 X10^3/ul (0.83-4.51); Lymphocyte % 35.5 % (19-41); Mean Corp Hgb Conc 32.3 g/dL (32-36); Mean Corpuscular Hgb 29.8 pg (27.0-32.0); Mean Corpuscular Volume 92.2 fL (81-99); Mean Platelet Vol. 10.8 fl (6.2-12.0); Monocyte# 0.42 X10^3/uL; Monocyte% 9.4 % (0-10); NRBC Flagged by Analyzer 0 % (0-5); Neutrophil # 1.59 X10^3/uL (2.7-7.7); Neutrophil % 35.8 % (47-70); Platelet Count 266 K/mm3 (150-450); RBC Distribution Width SD 43.7 fl (35.1-43.9); Red Blood Count 3.96 M/mm3 (4.2-5.4); White Blood Count 4.5 K/mm3 (4.4-11.0)
[2024-08-23 10:26] LABS: Vitamin D,25 Hydroxy 62.8 ng/mL
[2024-08-23 11:31] LABS: ALB/GLOB Ratio 1.1 RATIO (0.9-2.4); AST(SGOT) 24 U/L (15-37); Alanine Aminotransfer ALT/SGPT 31 U/L (13-56); Albumin, Serum 3.5 g/dL (3.2-5.0); Alkaline Phosphatase 78 U/L (45-117); Anion Gap 5 (5-15); BUN 14 mg/dL (7-18); BUN/Creat Ratio 25.9 RATIO (10-20); Calcium,Total 9.2 mg/dL (8.5-10.1); Chloride 108 mmol/L (98-107); Cholesterol 142 mg/dL (200); Creatinine, Serum 0.54 mg/dL (0.55-1.02); EST Glomerular Filtration Rate 128 mL/min (>60); Est Glom Filt Rate - Afr Amer 155 mL/min (>60); Globulin 3.3 g/dL (2.2-4.2); Glucose 95 mg/dL (74-106); High Density Lipoprotein 53 mg/dL; Potassium 4.3 mmol/L (3.5-5.1); Protein, Total 6.8 g/dL (6.4-8.2); Sodium Level 140 mmol/L (136-145); T4 Free Direct 0.93 ng/dL (0.76-1.46); Thyroid Stim Hormone (TSH) 0.836 uIU/mL (0.358-3.740); Triglycerides 153 mg/dL; Very Low Density Lipoprotein 31 mg/dL (5-40)
== END | disposition home or self-care (01) ==
LOC: MFPLAB 08:05
PROVIDERS: PCP Family Medicine; Referring Provider Family Medicine; Visit Provider Family Medicine
DX: E78.5 Hyperlipidemia, unspecified (principal); E03.9 Hypothyroidism, unspecified; E55.9 Vitamin D deficiency, unspecified
CPT/HCPCS: 36415; 80053; 80061; 82306; 84439; 84443; 85025

== ENCOUNTER → 2024-08-24 | Outpatient (CLI) | payer OTHER, SELFPAY ==
[2024-08-24 13:30] LABS: Vitamin B12 397 pg/mL (211-911)
[2024-08-24 14:01] LABS: Ferritin 88 ng/mL (8-252); Iron 109 ug/dL (50-170); Iron Binding Capacity,Total 333 ug/dL (250-450)
[2024-08-25 15:07] LABS: Thyroglobulin Antibody < 1.0 IU/mL (0.0-0.9); Thyroid Peroxidase AB < 9 IU/mL (0-34)
== END | disposition home or self-care (01) ==
LOC: MFPLAB 09:29
PROVIDERS: PCP Family Medicine; Referring Provider Family Medicine; Visit Provider Family Medicine
DX: D64.9 Anemia, unspecified (principal)
CPT/HCPCS: 36415; 82607; 82728; 82746; 83540; 83550; 86376; 86800

== ENCOUNTER → 2024-12-28 | Outpatient (CLI) | payer OTHER, SELFPAY ==
--- OUTSIDE RECORDS SUMMARY | 2024-12-28 06:56 | XMS RPT_ITS | CCD ---
Author Organization [facility] Care Team Providers Care Bad Credit Collector Name Role Phone Dr. Breezy Alegria Primary Care Provider [phone] Dr. Breezy Alegria Referring Provider [phone] Gerardo Guthrie Attending Provider Dr. Breezy Alegria Primary Care Provider Dr. Breezy Alegria Referring Provider [phone] Gerardo Guthrie Attending Provider Dr. Gerardo Guthrie Referring Provider Dr. Gerardo Guthrie Other Provider Dr. Gerardo Guthrie Admit Provider Dr. Paula Cherry Attending Provider Dr. Paula Cherry Other Provider Dr. Adam Parker Attending Provider Dr. Adam Parker Other Provider Dr. Ismael Frazier Attending Provider Dr. Gerardo Guthrie Referring Provider Michael Zafar Referring Unavailable Michael Zafar Attending Unavailable MICHAEL ZAFAR Admitting Unavailable MICHAEL ZAFAR Attending Unavailable BREEZY ALEGRIA Primary Care UnavailDr. Breezy Richardson Primary Care Provider Dr. Breezy Alegria Referring Provider [phone] Gerardo Guthrie Attending Provider Dr. Ismael Frazier Attending Provider Dr. Wallace Whitehead Attending Provider [phone] Dr. Traci Obrien Referring Provider Dr. Godfrey Wiley Attending Provider 1([facility])[phone] Breezy Alegria Referring Provider Dr. Breezy Alegria Primary Care Provider 1([facility] )[phone] Dr. Gerardo Guthrie Attending Provider 1([facility])[phone] Dr. Breezy Alegria Referring Provider 1([facility])[phone] Dr. Wallace Whitehead Attending Provider Dr. Ismael Frazier Attending Provider 1([facility])[phone] Breezy Alegria Primary Care Provider 1([facility] )[phone] Dr. Breezy Alegria Referring Provider 1([facility])[phone] Dr. Gerardo Guthrie Attending Provider 1([facility])[phone] Dr. Godfrey Wiley Referring Provider 1([facility])[phone] Godfrey Wiley Other Provider Dr. Zaire Roche Attending Provider 1([facility])[phone] Breezy Alegria Primary Care Provider 1([facility] )[phone] Dr. Ismael Frazier Attending Provider 1([facility])[phone] Breezy Alegria Referring Provider 1([facility])[phone] Dr. Gerardo Guthrie Attending Provider 1([facility])[phone] Dr. Godfrey Wiley Referring Provider 1([facility])[phone] Godfrey Wiley Other Provider Dr. Zaire Roche Attending Provider 1([facility])[phone] Anisa DOCTOR'S ASSISTANT, DOCTOR'S ASSISTANT-C Traci Attending Provider Dr. Gerardo Guthrie Referring Provider Dr. Gerardo Guthrie Other Provider Dr. Gerardo Guthrie Admit Provider Dr. John Ennis Attending Provider Dr. John Ennis Other Provider 1([facility])[phone] Dr. Paula Cherry Other Provider Dr. Paula Cherry Attending Provider Dr. Breezy Alegria Primary Care Provider Dr. Breezy Alegria Referring Provider Dr. Gerardo Guthrie Attending Provider Dr. Ismael Frazier Attending Provider Dr. Trino Christian Attending Provider Charisse DOCTOR'S ASSISTANT, DOCTOR'S ASSISTANT-C Arlene Attending Provider Dr. Breezy Alegria Primary Care Provider Dr. Ismael Frazier Attending Provider Raji, Breezy E Primary Care Unavailable SchBreezy barney E Attending Unavailable Schlucyner, Breezy E Referring Unavailable Charisse DOCTOR'S ASSISTANT, Arlene Attending Unavailable Charisse DOCTOR'S ASSISTANTArlene Referring Unavailable Schector, Breezy E Primary Care Unavailable Schector, Breezy E Primary Care Unavailable Robotham, Winsome Attending Unavailable Raji, Breezy E Referring Unavailable Breezy Alegria E Primary Care Unavailable Trino Christian Attending Unavailable Trino Christian Referring Unavailable Raji, Breezy E Primary Care Unavailable EMANUEL IVAN Attending Unavailable EMANUEL IVAN Referring Unavailable Charisse DOCTOR'S ASSISTANTArlene Attending Unavailable Schector, Breezy E Primary Care Unavailable SchBreezy barney E Referring Unavailable Raji, Breezy E Primary Care Unavailable Trino Christian Attending Unavailable Breezy Alegria E Referring Unavailable Schector, Breezy E Referring Unavailable Schector, Breezy E Primary Care Unavailable Trino Christian Attending Unavailable Raji, Breezy E Primary Care Unavailable Robotham, Winsome Consulting Unavailable Robotham, Winsome Attending Unavailable Schinner, Breezy E Referring Unavailable Schinner, Breezy E Primary Care Unavailable Brenda Simental Attending Unavailable Schinner, Breezy Gusman Attending Unavailable Schinner, Breezy E Primary Care Unavailable Schinner, Breezy E Attending Unavailable Schinner, Breezy E Primary Care Unavailable Schinner, Breezy E Primary Care Unavailable Breezy Alegria E Attending Unavailable Breezy Alegria E Referring Unavailable Dr. Breezy Alegria MD Primary Care Provider Dr. Breezy Alegria MD Attending Provider Raji ALICEA, Dr. Breezy Gusman Referring Provider [phone] Arlene Morales Attending Provider [phone] Gino ALICEA, Dr. Jameson Attending Provider Medications Current Medications Medication Drug Class(es) Dates Sig (Normalized) Sig (Original) ascorbic acid 500 mg oral tablet (20 sources) Vitamin C Start: 12-16-2023 take 1 g by mouth once daily Ascorbic Acid (Vitamin C) (Vitamin C) 500 mg tablet Active 1 g PO DAILY December 16, 2023 8:32am Start: 12-05-2021 End: 12-16-2023 take 2 tablets by mouth every other day Ascorbic Acid (Vitamin C) (Vitamin C) 500 mg Tablet Discontinued 1000 mg PO EVERY OTHER DAY December 05, 2021 12:00am December 16, 2023 8:33am Start: 12-05-2021 take 2 tablets by [facility] once daily Ascorbic Acid (Vitamin C) (Vitamin C) 500 mg Tablet Active 1000 MG PO DAILY December 04, 2021 11:00pm cholecalciferol 0.025 mg oral tablet (20 sources) Vitamin D Start: 12-16-2023 take 1 tablet by mouth once daily Cholecalciferol (Vitamin D3) 25 mcg (1,000 unit) tablet Active 5000 U PO DAILY December 16, 2023 8:32am Start: 12-20-2018 End: 12-16-2023 take 1 tablet by mouth every other day Cholecalciferol (Vitamin D3) 1,000 UNIT tablet Discontinued 1000 U PO EVERY OTHER DAY December 20, 2018 12:00am December 16, 2023 8:33am Start: 12-20-2018 take 1000 [IU] by [facility] once daily Cholecalciferol (Vitamin D3) Active 1000 UNIT PO DAILY December 19, 2018 11:00pm diphenhydrAMINE hydrochloride 25 mg oral capsule (20 sources) Histamine-1 Receptor Antagonist Start: 12-05-2021 take 1 capsule by mouth at bedtime as needed Diphenhydramine Hcl (Sleep Aid (Diphenhydramine)) 25 mg Capsule Active 25 mg PO AT BEDTIME as needed for Insomnia December 05, 2021 12:00am Start: 11-29-2018 End: 11-27-2021 Diphenhydramine Hcl (Nightti me Sleep Aid (Diphen)) 25 mg capsule Discontinued 50 mg PO AT BEDTIME as needed for Sleep November 29, 2018 12:00am November 27, 2021 7:59am 84 hr estradiol 0.00961 mg/hr transdermal system (3 sources) Estrogen Start: 08-08-2024 End: 09-08-2024 apply 1 dose transdermal route two times weekly, then apply 1 dose transdermal route every hour Estradiol (Vivelle-Dot) 0.05 mg/24 hr patch semiweekly Active 1 NMA TD TWICE A WEEK September 08, 2024 9:56am apply 1 patch for 3 days alternating with 1 patch for 4 days each week 1 ml etanercept 50 mg/ml prefilled syringe (12 sources) Tumor Necrosis Factor Abel Start: 11-14-2022 Etanercept (Enbrel) 50 mg/mL (1 mL) syringe Active 50 mg SC EVERY WEEK November 14, 2022 12:00am ferrous sulfate 325 mg oral tablet (2 sources) Start: 11-29-2018 take 1 tablet by mouth twice daily Ferrous Sulfate (Feosol) 325 mg (65 mg iron) tablet Active 325 MG PO TWICE A DAY November 29, 2018 9:32am leflunomide 20 mg oral tablet (1 source) Antirheumatic Agent Start: 05-27-2024 take 1 tablet by mouth once daily Leflunomide 20 mg tablet Active 20 mg PO daily May 27, 2024 1:00am leucovorin 5 mg oral tablet (2 sources) Folate Analog Start: 11-29-2018 take 5 mg by mouth every week Leucovorin Calcium Active 5 MG PO EVERY WEEK November 29, 2018 9:30am levothyroxine sodium 0.088 mg oral tablet (2 sources) l-Thyroxine Start: 06-08-2024 take 1 tablet by mouth once daily Levothyroxine 88 mcg tablet Active 88 ug PO DAILY June 08, 2024 1:00am Start: 05-27-2024 End: 06-08-2024 take 1 capsule by mouth once daily Levothyroxine 75 mcg capsule Discontinued 75 ug PO daily May 27, 2024 1:00am June 08, 2024 10:16am meloxicam 15 mg oral tablet (1 source) Nonsteroidal Anti-inflammatory Drug Start: 05-27-2024 take 1 tablet by mouth once daily Meloxicam 15 mg tablet Active 15 mg PO daily May 27, 2024 1:00am ondansetron 4 mg oral tablet (7 sources) Serotonin-3 Receptor Antagonist Start: 08-17-2023 End: 12-14-2024 take 1 tablet by mouth three times daily as needed for nausea and vomiting Ondansetron Hcl 4 mg tablet Active 4 mg PO THREE TIMES A DAY as needed for nausea and vomiting December 14, 2024 8:22am progesterone 100 mg oral capsule (2 sources) Progesterone Start: 08-08-2024 End: 09-08-2024 take 1 capsule by mouth at bedtime Progesterone Micronized (Prometrium) 100 mg capsule Active 100 mg PO AT BEDTIME September 08, 2024 9:57am rosuvastatin calcium 10 mg oral tablet (20 sources) HMG-CoA Reductase Inhibitor Start: 12-05-2021 take 1 tablet by mouth at bedtime Rosuvastatin (Crestor) 10 mg Tablet Active 10 mg PO AT BEDTIME December 05, 2021 12:00am SUMAtriptan 50 mg oral tablet (8 sources) Serotonin-1b and Serotonin-1d Receptor Agonist Start: 01-07-2024 End: 12-14-2024 take 1 tablet by mouth every two hours as needed for headache, then take 2 tablets by mouth once daily as needed for headache Sumatriptan Succinate 50 mg tablet Active 50 mg PO .COMPLEX December 14, 2024 8:22am Take 1 tablet orally every two hours as needed for headache up to two tablets per day Start: 08-17-2023 End: 12-16-2023 take 1 tablet by mouth every two hours as needed for headache, then take 2 tablets by mouth once daily as needed for headache Sumatriptan Succinate 50 mg tablet Discontinued 50 mg PO .COMPLEX August 17, 2023 10:59am December 16, 2023 8:33am Take 1 tablet orally every two hours as needed for headache up to two tablets per day ubidecarenone 100 mg oral capsule (20 sources) Start: 12-05-2021 Coenzyme Q10 ( Coq-10) 100 mg Capsule Active 100 mg PO AT BEDTIME December 05, 2021 12:00am vitamin a 2.4 mg oral capsul e (17 sources) Vitamin A Start: 05-27-2024 Vitamin A 2,40 0 mcg capsule Active 2400 ug PO daily May 27, 2024 1:00am Start: 12-05-2021 take 2400 ug by mouth once sangeetha ly Vitamin A Active 2400 MCG PO DAILY December 04, 2021 11:00pm Completed/Discontinued Medications Medication Drug Class(es) Dates Sig (Normalized) Sig (Original) 1 ml abatacept 125 mg/ml auto-injector (20 sources) Selective T Cell Costimulation Modulator Start: 12-05-2021 End: 11-14-2022 Abatacept (Orencia Clickject) 125 mg/mL auto-injector Discontinued 125 mg SC EVERY WEEK December 05, 2021 12:00am November 14, 2022 11:10am acetaminophen 325 mg / oxyCODONE hydrochloride 5 mg oral tablet (20 sources) Opioid Agonist Start: 06-10-2023 End: 06-17-2023 Oxycodone-Acetamin ophen 5-325 mg tablet Discontinued 1 {tbl} PO EVERY 6 HOURS as needed for pain 06 02June 10, 2023 June 16, 2023 1:00am June 17, 2023 1:05am Start: 06-10-2023 End: 06-17-2023 take 1 tablet by mouth every six hours Oxycodone-Acetaminophen Discontinued 1 TABLET PO EVERY 6 HOURS 06 02June 10, 2023 June 17, 2023 1:05am Start: 01-10-2022 End: 03-10-2022 Oxycodone-Acetaminophen 5-32 5 mg tablet Discontinued 1 {tbl} PO as needed for pain January 10, 2022 12:00am March 10, 2022 8:07am Start: 01-10-2022 End: 03-10-2022 Oxycodone-Acetaminophen Disc ontinued 1 TABLET PO January 10, 2022 12:00am March 10, 2022 8:07am docusate sodium 100 mg oral capsule (20 sources) Start: 12-20-2018 End: 11-27-2021 take 1 capsule by mouth once daily Docusate Sodium 100 MG capsule Discontinued 100 mg PO DAILY December 20, 2018 12:00am November 27, 2021 7:59am gabapentin 300 mg oral capsule (14 sources) Anti-epileptic Agent Start: 06-20-2022 End: 08-14-2022 take 1 capsule by mouth twice daily Gabapentin 300 mg capsule Discontinued 300 mg PO TWICE A DAY June 20, 2022 1:00am August 14, 2022 11:39am hydroxychloroquine sulfate 200 mg oral tablet (18 sources) Antimalarial, Antirheumatic Agent Start: 03-10-2022 End: 11-14-2022 Hydroxychloroquine 200 mg tablet Discontinued NMA PO March 10, 2022 12:00am November 14, 2022 11:11am Start: 03-10-2022 End: 11-14-2022 Hydroxychloroquine Discontin ued TAB PO March 10, 2022 12:00am November 14, 2022 11:11am Start: 11-29-2018 Hydroxychloroq uine (Plaquenil) 200 mg tablet Active 300 MG PO DAILY November 29, 2018 9:31am mecobalamin 1 mg chewable tablet (20 sources) Start: 12-05-2021 End: 05-20-2023 Mecobalamin (Vitamin B12) (B12 Active) 1,000 mcg Tablet,Chewable Discontinued 1000 ug PO DAILY December 05, 2021 12:00am May 20, 2023 11:22am methotrexate 2.5 mg oral tablet (14 sources) Folate Analog Metabolic Inhibitor Start: 11-14-2022 End: 04-08-2023 take 1 tablet by mouth every week Methotrexate Sodium 2.5 mg tablet Discontinued 2.5 mg PO EVERY WEEK November 14, 2022 12:00am April 08, 2023 8:05am Start: 11-29-2018 take 20 mg by mouth every week Methotrexate Sodium Active 20 MG PO EVERY WEEK November 29, 2018 9:30am methylPREDNISolone 4 mg oral tablet (20 sources) Corticosteroid Start: 01-10-2022 End: 01-16-2022 take 1 tablet by mouth once daily Methylprednisolone (Medrol (Virgil)) 4 mg tablets,dose pack Discontinued 4 mg PO DAILY 12 16January 10, 2022 12:00am January 15, 2022 12:00am January 16, 2022 12:03am naproxen sodium 220 mg oral capsule (20 sources) Nonsteroidal Anti-inflammatory Drug Start: 11-29-2018 End: 05-27-2024 take 1 capsule by mouth twice daily as needed for pain Naproxen Sodium (Aleve) 220 mg capsule Discontinued 220 mg PO TWICE A DAY as needed for Pain November 29, 2018 12:00am May 27, 2024 10:18am topiramate 50 mg oral tablet (6 sources) Start: 08-17-2023 End: 12-16-2023 take 0.5 tablet by mouth twice daily, then take 1 tablet by mouth twice daily Topiramate 50 mg tablet Discontinued 50 mg PO TWICE A DAY 60 August 17, 2023 10:59am December 16, 2023 8:33am Take 1/2 tablet orally twice daily for one week then 1 tablet twice daily thereafter. Problems Active Problems Problem Classification Problem Date Documented Date Episodic/Chronic Disorders of lipid metabolism (1 source) Hyperlipidemia, unspecified; Translations: [Hyperlipidemia, unspecified] Onset: 09-08-2024 Chronic Esophageal disorders (20 sources) Gastroesophageal reflux disease; Translations: [Gastro-esophageal reflux disease without esophagitis] 11-29-2018 Chronic Headache; including migraine (7 sources) Migraine without aura; Translations: [Migraine without aura, not intractable, without status migrainosus] 08-17-2023 Chronic Malaise and fatigue (3 sources) Other fatigue; Translations: [Fatigue] Onset: 12-14-2024 12-14-2024 Episodic Menopausal disorders (7 sources) Menopausal syndrome; Translations: [Menopausal and female climacteric states] 09-02-2023 Chronic Menopausal disorders (2 sources) Drug therapy finding; Translations: [Hormone replacement therapy] 09-08-2024 Episodic Nonmalignant breast conditions (20 sources) Breast lump; Translations: [Unspecified lump in unspecified breast] Episodic Nutritional deficiencies (1 source) Vitamin D deficiency, unspecified; Translations: [Vitamin D deficiency, unspecified] Onset: 06-22-2024 Chronic Other bone disease and musculoskeletal deformities (20 sources) Segmental and somatic dysfunction; Translations: [Segmental and somatic dysfunction of cervical region] 03-01-2019 Episodic Other bone disease and musculoskeletal deformities (20 sources) Cervical somatic dysfunction; Translations: [Segmental and somatic dysfunction of cervical region] 12-26-2021 Episodic Other bone disease and musculoskeletal deformities (10 sources) Segmental and somatic dysfunction of cervical region; Translations: [Nonallopathic lesions, cervical region] Episodic Other connective tissue disease (20 sources) Arthrodesis status; Translations: [Arthrodesis status] Episodic Other connective tissue disease (1 source) Pain in left foot; Translations: [Left foot pain] Onset: 05-01-2022 Episodic Other lower respiratory disease (7 sources) Nodule of lung; Translations: [Solitary pulmonary nodule] 02-19-2023 Episodic Other nervous system disorders (1 source) Lesion of plantar nerve, left lower limb; Translations: [Lesion of left plantar nerve] Onset: 05-01-2022 Chronic Other nervous system disorders (1 source) Other acute postprocedural pain; Translations: [Other acute postoperative pain] Onset: 05-01-2022 Episodic Other nervous system disorders (2 sources) Paresthesia of skin; Translations: [Paresthesia of skin] Onset: 12-14-2024 Episodic Other nervous system disorders (2 sources) Paresthesia; Translations: [Paresthesia of skin] 12-14-2024 Episodic Residual codes; unclassified (20 sources) Family history of cancer of colon; Translations: [Family history of malignant neoplasm of digestive organs] 11-29-2018 Episodic Comment on above: dx in his 51. Unsure about genetic testing. discussed empower screen. Rheumatoid arthritis and related disease (20 sources) Rheumatoid arthritis; Translations: [Rheumatoid arthritis, unspecified] 03-01-2019 Chronic Spondylosis; intervertebral disc disorders; other back problems (20 sources) Cervical syndrome; Translations: [Spondylosis without myelopathy or radiculopathy, cervical region] Chronic Spondylosis; intervertebral disc disorders; other back problems (20 sources) Neck pain; Translations: [Cervicalgia] Episodic Viral infection (20 sources) Disease caused by 2019-nCoV; Translations: [COVID-19] 07-24-2021 Episodic Past or Other Problems Problem Classification Problem Date Documented Date Episodic/Chronic Deficiency and other anemia (1 source) Anemia, unspecified; Translations: [Anemia, unspecified] Onset: 09-08-2024 Episodic Neoplasms of unspecified nature or uncertain behavior (4 sources) Neoplasm of unspecified behavior of bone, soft tissue, and skin; Translations: [Neoplasm of unspecified nature of bone, soft tissue, and skin] 04-08-2023 Episodic Other connective tissue disease (20 sources) History of cervical spine fusion; Translations: [Arthrodesis status] Onset: 06-09-2023 12-30-2021 Episodic Comment on above: X2 Other lower respiratory disease (2 sources) Solitary pulmonary nodule; Translations: [Solitary pulmonary nodule] 05-20-2023 Episodic Other screening for suspected conditions (not mental disorders or infectious disease) (4 sources) Encounter for screening mammogram for malignant neoplasm of breast; Translations: [Encounter for screening for malignant neoplasm of colon] Onset: 02-11-2024 05-27-2024 Episodic Residual codes; unclassified (3 sources) Family history of malignant neoplasm of digestive organs; Translations: [Family history of malignant neoplasm of gastrointestinal tract] Onset: 07-14-2024 09-02-2023 Episodic Unclassified (19 sources) h/o finger surgery 02-09-2022 Comment on above: ORIF right middle fi nger Unclassified (19 sources) s/p tonsillectomy 02-09-2022 Results Test Name Value Interpretation Reference Range Facility Neurology Visit Reporton Neurology Visit Report [facility] [address] [place] [address], [address] [place] [address] OFFICE VISIT Date of Service: 12/14/24 MR#: [id number] Acct: [id number] Name: TIERRA MALCOLM Rep #: [id number] 01 : 1975 Provider: Dr. Trino jolley MD Age/Sex: 49/F Location: [facility] Status: Signed [facility] Chief Complaint: Details: Interim History: Tierra returns for follow-up visit. She has a history of hyperlipidemia, bronchiectasis and rheumatoid arthritis. She has been experiencing headaches since childhood. Her headaches had generally occurred 1 to 2 days/week. Beginning in 2020, her headaches increased in severity. Her headaches generally last less than 1 day each. She experiences associated photophobia, phonophobia and occasionally nausea. She does not experience associated numbness, weakness or vision change. Emotional stress and certain smells (such as candles) are triggers for her headaches. She is unaware of any other triggers for her headaches. Acetaminophen and [id number] ibuprofen have been of benefit for milder headaches. Sumatriptan 50 mg has been of benefit for her headaches. Topiramate caused paresthesias in the feet and was discontinued. She tried 1 dose of Nurtec ODT and this was not of benefit. She is taking estrogen and progesterone. She has had a reduction of her headache frequency and her headaches now occur about 1 day every 2 to 3 months. She has a history of of neck pain and upper extremity radicular pain and has undergone a C5-6 anterior cervical discectomy and fusion in December 2021 and C6-C7 anterior cervical discectomy and fusion in May 2023 and had resolution of her radicular pain and her neck pain diminished however now she reports intermittent tingling in both upper extremities extending from the shoulders to the hands; her symptoms are worse in the left upper extremity compared to the right. She tried wearing wrist splints and these were of modest benefit for her upper extremity paresthesias. She has joint pains in various locations for which she takes Enbrel. She takes meloxicam. She has fatigue. Her B12 level is near the low end of the normal range. Physical Exam: Neuro: The patient is awake and alert and responds appropriately; speech is fluent; motor strength is 5/5 in the abductor pollicis brevis bilaterally, first dorsal interosseous bilaterally, biceps bilaterally, triceps bilaterally and deltoid bilaterally; there are no deficits to soft touch in the left hand Extremities: Tinel's sign is negative at the wrists and elbows Heart: Regular rhythm and rate Supplemental Info Cervical spine MRI (11/06/2022): FINDINGS: VERTEBRAE: There is metal artifact anteriorly at C5-6 consistent with prior anterior cervical disc fusion. This metal artifact extends posteriorly particularly on the T2, inversion recovery and gradient echo imaging. VERTEBRAL ALIGNMENT: Normal, including the craniocervical junction and cervicothoracic junction. No spondylolisthesis. There is preservation of the normal cervical lordosis. CERVICAL SPINAL CORD: Unremarkable in signal and morphology. C2/C3: Mild disc desiccation. C3/C4: Moderate disc desiccation, mild disc osteophyte with small central disc herniation. C4/C5: Mild disc desiccation and loss of disc space height, mild bilateral uncovertebral joint disease and facet arthropathy with moderate right and mild left neural foraminal encroachment. C5/C6: Mild recurrent or residual disc osteophyte, mild bilateral neural foraminal encroachment. C6/C7: Moderate disc desiccation, moderate right paracentral disc herniation, mild underlying disc osteophyte, bilateral facet arthropathy and uncovertebral joint disease with severe right and moderate left neural foraminal encroachment. C7/T1: Normal disc height and morphology. Normal spinal canal and neuroforamina. NECK SOFT TISSUES: No prevertebral soft tissue swelling. There is no cervical adenopathy. IMPRESSION: Status post ACDF C5-6. Mild disc osteophyte with superimposed central disc herniation C3-4. Mild recurrent or residual disc osteophyte C5-6. Moderate right paracentral disc herniation C6-7. Additional findings above. These images were reviewed on 08/17/2023. Head MRI with and without contrast (01/19/2023): FINDINGS: BRAIN AND EXTRA-AXIAL SPACES: No focal signal abnormalities throughout the brain parenchyma in all pulse sequences. No intra- or extra-axial hemorrhage. No evidence of acute infarct. No intracranial mass or mass effect. There is preservation of the liu/white matter interface. Posterior fossa structures are unremarkable. Ventricles are normal. No hydrocephalus. Normal suprasellar cistern and basal cisterns. SELLA: Unremarkable. Normal sella turcica, pituitary gland, infundibular stalk, optic chiasm and hypothalamus. AUDITORY SYSTEM: Unremarkable. The internal auditory canals are patent. BONES/JOINTS: U (more content not included)... Normal [facility] Nursing Education Consultant Office Visit Reporton 09-08-2024 Nursing Education Consultant Office Visit Report [facility]'[address], [facility] [address] [place] [address] OFFICE VISIT Date of Service: 09/08/24 MR#: [id number] Acct: [id number] Name: TIERRA MALCOLM Rep #: [id number] : 1975 Provider: KANDY ulrich Age/Sex: 49/F [place] [facility] [place]: Signed Intake Vital Signs 06/13/24 07:29 09/08/24 08:48 09/08/24 08:52 Height 5 ft 3 in 5 ft 3 in 5 ft 3 in Weight: 171 lb BMI 30.2 BP 124/82 H Intake Visit Reasons: Medication follow up Chief Complaint: 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/u 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 Is patient in pain?: No Allergies No Known Allergies Allergy (Verified 09/08/24 08:48) Medications ???Medication ???Instructions ???Recorded ???Confirmed ???Type coenzyme Q10 100 mg capsule 100 mg PO QHS SUPPLEMENT 12/05/21 09/08/24 History (CoQ-10) diphenhydramine HCl 25 mg capsule 25 mg PO QHS PRN Insomnia 2 09/08/24 History (Sleep Aid (diphenhydramine)) rosuvastatin 10 mg tablet (Crestor) 10 mg PO QHS CHOLESTEROL 09/08/24 History etanercept 50 mg/mL (1 mL) 50 mg subcut QWEEK 11/14/22 History subcutaneous syringe (Enbrel) ondansetron HCl 4 mg tablet 4 mg PO TID PRN nausea and 4 09/08/24 Rx vomiting #90 tabs ascorbic acid (vitamin C) 500 mg 1 g PO DAILY SUPPLEMENT 12/16/23 0 09/08/24 History tablet (Vitamin C) cholecalciferol (vitamin D3) 25 5,000 unit PO DAILY SUPPLEMENT 12/0309/08/24 History mcg (1,000 unit) tablet sumatriptan succinate 50 mg tablet 50 mg PO .COMPLEX #9 tabs 09/08/24 Rx leflunomide 20 mg tablet 20 mg PO QDAY 05/27/24 09/08/24 Hi story meloxicam 15 mg tablet 15 mg PO QDAY 05/27/24 09/08/24 Hi story vitamin A 2,400 mcg capsule 2,400 mcg PO QDAY 05/27/24 5 History levothyroxine 88 mcg tablet 88 mcg PO DAILY 06/08/24 09/08/24 History estradiol 0.05 mg/24 hr semiweekly 1 patch transdermal 2XW #24 ea 0 09/08/24 09/08/24 Rx transdermal patch (Vivelle-Dot) progesterone micronized 100 mg 100 mg PO QHS #90 caps 09/08/24 Rx capsule (Prometrium) Is last menstrual period known: No Post menopausal: Yes Patient : No : No PFSH Medical History PONV (postoperative nausea and vomiting) Non-smoker High cholesterol Heartburn COVID-19 Anemia Rheumatoid arthritis Surgical History Hx of colonoscopy S/P cervical spinal fusion (06/09/23) History of endometrial ablation h/o finger surgery s/p tonsillectomy S/P tubal ligation S/P Family History Father Colon cancer, Onset Age: 50 Survives Son Asthma Mother Hypertension Social History household members: spouse current occupational status: employed 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 States that it has completely resolved her symptoms. No hot flashes, sleeping well. Anxiety is less and noting fewer headaches. She has had no vaginal bleeding. Due for breast and pelvic exam Last pap 2023 Mammogram Jun 2024 Female Reproductive History Questions: sexually active: Yes, dyspareunia: No and PCB: No History 3 Elective abortions Hx Para 3 Spontaneous abortions Hx # Term Pregnancies Ectopic pregnancies Hx # Pregnancies Multiple births # of living children 3 Past Pregnancies Del. Date Name GA/Weeks Outcome Route Bth Weight Infant Gen Labor Lgth Anesthesia Del Locatn Provider FOB Unknown Jordyn 2000 Unknown Jacob 2001 Unknown Champ 2005 ROS Const Constitutional: Denies fatigue, weight gain or weight loss Cardio Card: Denies chest pain Resp Resp: Denies cough or dyspnea on exertion GI GI: Denies abdominal pain, bloating, change in stool character, constipation or vomiting : Reports as per HPI; Denies difficulty voiding, pelvic pain, urinary frequency, urinary incontinence, urinary urgency, vaginal discharge or vaginal pruritus Exam Const General: cooperative and no acute distress Orientation: oriented x3 General: bladder normal to palpation External Female Exam: normal external appearance and normal appearance of the urethra Urethra: normal appearance of (more content not included)... Normal [facility] Thyroglobulin Antibodyon TG AB < 1.0 Normal 0.0-0.9 [facility] Comment on above: Result Comment: Thyr oglobulin Antibody measured by Gila Raleigh Methodology It should be noted that the presence of thyroglobulin antibodies may not be pathogenic nor diagnostic, especially at very low levels. The assay computer programming professor has found that four percent of individuals without evidence of thyroid disease or autoimmunity will have positive TgAb levels up to 4 IU/mL. Performed By: #### L 506.0250, L503.6150, L503.6075, L503.6550, L503.0105 #### [facility] [address] [facility] [place], [place], [id number] Thyroid Peroxidase ABon 08-13 THYR PEROX AB < 9 Normal 0-34 [facility] Comment on above: Result Comment: Perf ormed at: [facility] [id number] [employer] Plant Manager: Jose Miguel Grimm PhD, Phone: [phone] Performed By: #### L 506.0250, L503.6150, L503.6075, L503.6550, L503.0105 #### [facility] [address] [place], [address] Ferritinon 08-24-2024 Ferritin [Mass/Vol] 88 ng/mL Normal [address] [facility] Comment on above: Order Comment: Order Date: 08/24/24 Order Info: 2500-7 - TIBC Order Info: 2498-4 - FE Order Info: 2276-4 - NANCY Order Info: 2284-8 - FOLS Performed By: #### L 506.0250, L503.6150, L503.6075, L503.6550, L503.0105 #### [facility] [address] [facility] [address] [place], [place], [id number] Ferritin measurementOrdered By: Breezy Alegria on 08-24-2024 Ferritin [Mass/Vol] 88 ng/mL 8-252 [facility] Folates, (Folic Acid)on 08-13 FOLATES 22.10 ng/mL Normal 3.1-55.4 [facility] Comment on above: Order Comment: Order Date: 08/24/24 Order Info: 2500-7 - TIBC Order Info: [id number] - FE Order Info: 2275-10 - NANCY Order Info: 2284-02 - FOLS N Performed By: #### L 506.0250, L503.6150, L503.6075, L503.6550, L503.0105 #### [facility] [address] [place], [address] Ironon 08-24-2024 Iron [Mass/Vol] 109 ug/dL Normal 50-170 [facility] Comment on above: Order Comment: Order Date: 08/24/24 Order Info: 2500-7 - TIBC Order Info: [id number] - FE Order Info: 2275-10 - NANCY Order Info: 2284-02 - FOLS Performed By: #### L 506.0250, L503.6150, L503.6075, L503.6550, L503.0105 #### [facility] [address] [place], [address] Iron Binding Capacity,Totalo n 08-24-2024 TIBC 333 ug/dL Normal 250-450 [facility] Comment on above: Order Comment: Order Date: 08/24/24 Order Info: 2500-7 - TIBC Order Info: 2498-4 - FE Order Info: 2275-10 - NANCY Order Info: 2284-02 - FOLS Performed By: #### L 506.0250, L503.6150, L503.6075, L503.6550, L503.0105 #### [facility] [address] [place], [address] Iron measurement (mass/mass) Ordered By: Breezy Alegria on 08-24-2024 Iron (Unsp spec) [Mass/Mass] 109 ug/dL 50-170 [facility] Serum or plasma thyroperoxid ase antibody assay (units/volume)Ordered By: Breezy Alegria on 08-24-2024 TPO Ab Qn [IU]/mL 0-34 [facility] Comment on above: Performed at: [facility] [id number] [place], [place] [id number] Director: Jose Miguel Grimm PhD, Phone: [phone] Vitamin B12on 08-24-2024 Cobalamin (Vitamin B12) [Mass/Vol] 397 pg/mL Normal 211-911 [facility] Comment on above: Order Comment: Order Date: 08/24/24 Order Info: 213-9 - B12 Performed By: #### L 506.0250, L503.6150, L503.6075, L503.6550, L503.0105 #### [facility] [address] [place], [address] Vitamin B12 measurementOrder ed By: Breezy Alegria on 08-24-2024 Cobalamin (Vitamin B12) [Mass/Vol] 397 pg/mL 211-911 [facility] Absolute lymphocyte countOrd ered By: Breezy Alegria on 08-23-2024 Lymphocytes Auto (Unsp spec) [#/Vol] 1.58 10*3/uL 0.83-4.51 [facility] Absolute neutrophil countOrd ered By: Breezy Alegria on 08-23-2024 Neutrophils (Bld) [#/Vol] 1.6 10*3/uL Low 2.0-7.7 [facility] Albumin to globulin ratioOrd ered By: Breezy Alegria on 08-23-2024 Albumin/Globulin [Mass ratio] 1.1 {ratio} 0.9-2.4 [facility] Automated lymphocyte count a s percentage of total leukocytesOrdered By: Breezy Alegria on 08-23-2024 Lymphocytes/100 WBC Auto (Unsp spec) 35.5 % 19-41 [facility] Basophil percentageOrdered B y: Breezy Alegria on 08-23-2024 Basophils/100 WBC (Bld) 1.1 % High 0-1 [facility] Bilirubin, totalOrdered By: Breezy Alegria on 08-23-2024 Bilirubin [Mass/Vol] 0.40 mg/dL 0.20-1.00 [facility] Comment on above: For patients on eltr ombopag therapy, use of Dimension Otis TBIL is not recommended. Blood urea nitrogen (BUN)/cr eatinine ratioOrdered By: Breezy Alegria on 08-23-2024 Urea nitrogen/Creatinine [Mass ratio] 25.9 mg/mg High 10-20 [facility] CBC W/Diff, Automatedon 08-13 Absolute Lymph 1.58 X10 3/uL Normal 0.83-4.51 [facility] Comment on above: Order Comment: Order Date: 05/23/24 Order Info: 0184-1 - CBCD Performed By: #### L 100.0100 #### [facility] [address] [place], [address] Absolute Neut 1.6 X10 3/uL Low 2.0-7.7 [facility] Comment on above: Order Comment: Order Date: 05/23/24 Order Info: 018- - CBCD Performed By: #### L 100.0100 #### [facility] [address] [place], [address] Basophils/100 WBC (Bld) 1.1 % High 0-1 [facility] Comment on above: Order Comment: Order Date: 05/23/24 Order Info: 0184-1 - CBCD Performed By: #### L 100.0100 #### [facility] [address] [place], [address] Eosinophils/100 WBC (Bld) 18.0 % High 0-5 [facility] Comment on above: Order Comment: Order Date: 05/23/24 Order Info: 0184-1 - CBCD Performed By: #### L 100.0100 #### [facility] [address] [place], [address] Erythrocyte distribution width (RBC) [Ratio] 13.0 % Normal 11.6-14.6 [facility] Comment on above: Order Comment: Order Date: 05/23/24 Order Info: 0184-1 - CBCD Performed By: #### L 100.0100 #### [facility] [address] [place], [address] Hematocrit (Bld) [Volume fraction] 36.5 % Low 37-47 [facility] Comment on above: Order Comment: Order Date: 05/23/24 Order Info: 018- - CBCD Performed By: #### L 100.0100 #### [facility] [address] [place], [address] Hemoglobin (Bld) [Mass/Vol] 11.8 g/dL Low 12.0-15.0 [facility] Comment on above: Order Comment: Order Date: 05/23/24 Order Info: 018- - CBCD Performed By: #### L 100.0100 #### [facility] [address] [place], [address] IG% 0.200 Normal 0.0-0.9 [facility] Comment on above: Order Comment: Order Date: 05/23/24 Order Info: 018- - CBCD Result Comment: IG% - Immature Granulocytes (promyelocytes, myelocytes and metamyelocytes) > 1% indicates that a LEFT SHIFT is Present. Performed By: #### L 100.0100 #### [facility] [address] [place], [address] Lymphocytes/100 WBC (Bld) 35.5 % Normal 19-41 [facility] Comment on above: Order Comment: Order Date: 05/23/24 Order Info: 018- - CBCD Performed By: #### L 100.0100 #### [facility] [address] [place], [address] MCH (RBC) [Entitic mass] 29.8 pg Normal 27.0-32.0 [facility] Comment on above: Order Comment: Order Date: 05/23/24 Order Info: 018- - CBCD Performed By: #### L 100.0100 #### [facility] [address] [place], [address] MCHC (RBC) [Mass/Vol] 32.3 g/dL Normal 32-36 [facility] Comment on above: Order Comment: Order Date: 05/23/24 Order Info: 018-1 - CBCD Performed By: #### L 100.0100 #### [facility] [address] [place], [address] MCV (RBC) [Entitic vol] 92.2 fL Normal 81-99 [facility] Comment on above: Order Comment: Order Date: 05/23/24 Order Info: 018- - CBCD Performed By: #### L 100.0100 #### [facility] [address] [place], [address] Monocytes/100 WBC (Bld) 9.4 % Normal 0-10 [facility] Comment on above: Order Comment: Order Date: 05/23/24 Order Info: 018- - CBCD Performed By: #### L 100.0100 #### [facility] [address] [place], [address] Neutrophils/100 WBC (Bld) 35.8 % Low 47-70 [facility] Comment on above: Order Comment: Order Date: 05/23/24 Order Info: 0184- - CBCD Performed By: #### L 100.0100 #### [facility] [address] [place], [address] Nucleated RBC (Bld) [#/Vol] 0 10*3/uL Normal 0-5 [facility] Comment on above: Order Comment: Order Date: 05/23/24 Order Info: 0184-1 - CBCD Performed By: #### L 100.0100 #### [facility] [address] [place], [address] Platelet mean volume (Bld) [Entitic vol] 10.8 fL Normal 6.2-12.0 [facility] Comment on above: Order Comment: Order Date: 05/23/24 Order Info: 0184-1 - CBCD Performed By: #### L 100.0100 #### [facility] [address] [place], [address] Platelets (Bld) [#/Vol] 266 10*3/uL Normal 150-450 [facility] Comment on above: Order Comment: Order Date: 05/23/24 Order Info: 0184-1 - CBCD Performed By: #### L 100.0100 #### [facility] [address] [place], [address] RBC (Bld) [#/Vol] 3.96 10*6/uL Low 4.2-5.4 [facility] Comment on above: Order Comment: Order Date: 05/23/24 Order Info: 018- - CBCD Performed By: #### L 100.0100 #### [facility] [address] [place], [address] RDW SD 43.7 fl Normal 35.1-43.9 [facility] Comment on above: Order Comment: Order Date: 05/23/24 Order Info: 018-1 - CBCD Performed By: #### L 100.0100 #### [facility] [address] [place], [address] WBC (Bld) [#/Vol] 4.5 10*3/uL Normal 4.4-11.0 [facility] Comment on above: Order Comment: Order Date: 05/23/24 Order Info: 0184-1 - CBCD Performed By: #### L 100.0100 #### [facility] [address] [place], [address] Carbon dioxide measurementOr dered By: Breezy Alegria on 08-23-2024 CO2 [Moles/Vol] 27.0 mmol/L 21.0-32.0 [facility] Chloride measurementOrdered By: Breezy Alegria on 08-23-2024 Chloride [Moles/Vol] 108 mmol/L High 98-107 [facility] Comprehensive Metabolic Prof ilon 08-23-2024 Albumin [Mass/Vol] 3.5 g/dL Normal 3.2-5.0 [facility] Comment on above: Order Comment: Order Date: 05/23/24 Order Info: 0184-1 - CBCD Performed By: #### L 100.0100 #### [facility] [address] [place], [address] Albumin/Globulin [Mass ratio] 1.1 {ratio} Normal 0.9-2.4 [facility] Comment on above: Order Comment: Order Date: 05/23/24 Order Info: 0184-1 - CBCD Performed By: #### L 100.0100 #### [facility] [address] [place], [address] ALK P 78 U/L Normal 45-117 [facility] Comment on above: Order Comment: Order Date: 05/23/24 Order Info: 0184-1 - CBCD Performed By: #### L 100.0100 #### [facility] [address] [place], [address] ALT [Catalytic activity/Vol] 31 U/L Normal 13-56 [facility] Comment on above: Order Comment: Order Date: 05/23/24 Order Info: 0184-1 - CBCD Performed By: #### L 100.0100 #### [facility] [address] [place], [address] AST [Catalytic activity/Vol] 24 U/L Normal 15-37 [facility] Comment on above: Order Comment: Order Date: 05/23/24 Order Info: 0184-1 - CBCD Performed By: #### L 100.0100 #### [facility] [address] [place], [address] Bilirubin [Mass/Vol] 0.40 mg/dL Normal 0.20-1.00 [facility] Comment on above: Order Comment: Order Date: 05/23/24 Order Info: 0184-1 - CBCD Result Comment: For patients on eltrombopag therapy, use of Dimension Otis TBIL is not recommended. Performed By: #### L 100.0100 #### [facility] [address] [place], [address] BUN/CRE 25.9 RATIO High 10-20 [facility] Comment on above: Order Comment: Order Date: 05/23/24 Order Info: 0184-1 - CBCD Performed By: #### L 100.0100 #### [facility] [address] [place], [address] CA,Total 9.2 mg/dL Normal 8.5-10.1 [facility] Comment on above: Order Comment: Order Date: 05/23/24 Order Info: 0184-1 - CBCD Performed By: #### L 100.0100 #### [facility] [address] [place], [address] Chloride [Moles/Vol] 108 mmol/L High 98-107 [facility] Comment on above: Order Comment: Order Date: 05/23/24 Order Info: 0184-1 - CBCD Performed By: #### L 100.0100 #### [facility] [address] [place], [address] CO2 [Moles/Vol] 27.0 mmol/L Normal 21.0-32.0 [facility] Comment on above: Order Comment: Order Date: 05/23/24 Order Info: 0184-1 - CBCD Performed By: #### L 100.0100 #### [facility] [address] [place], [address] Creatinine [Mass/Vol] 0.54 mg/dL Low 0.55-1.02 [facility] Comment on above: Order Comment: Order Date: 05/23/24 Order Info: 0184-1 - CBCD Result Comment: The validity of the calculated GFR GFRAA in patients over 70 years has not been determined. Clinical correlation is essential. Performed By: #### L 100.0100 #### [facility] [address] [place], [address] EST GFR - AA 155 mL/min Normal >60 [facility] Comment on above: Order Comment: Order Date: 05/23/24 Order Info: 0184-1 - CBCD Result Comment: Afri can Malian GFR Calc Performed By: #### L 100.0100 #### [facility] [address] [place], [address] GAP 5 Normal 5-15 [facility] Comment on above: Order Comment: Order Date: 05/23/24 Order Info: 0184-1 - CBCD Performed By: #### L 100.0100 #### [facility] [address] [place], [address] GFR/1.73 sq M.predicted among non-blacks MDRD (S/P/Bld) [Vol rate/Area] 128 mL/min/{1.73_m2} Normal >60 [facility] Comment on above: Order Comment: Order Date: 05/23/24 Order Info: 0184-1 - CBCD Result Comment: Non- GFR Calc Performed By: #### L 100.0100 #### [facility] [address] [place], [address] Globulin (S) [Mass/Vol] 3.3 g/dL Normal 2.2-4.2 [facility] Comment on above: Order Comment: Order Date: 05/23/24 Order Info: 0184-1 - CBCD Performed By: #### L 100.0100 #### [facility] [address] [place], [address] Glucose [Mass/Vol] 95 mg/dL Normal 74-106 [facility] Comment on above: Order Comment: Order Date: 05/23/24 Order Info: 0184-1 - CBCD Performed By: #### L 100.0100 #### [facility] [address] [place], [address] Potassium [Moles/Vol] 4.3 mmol/L Normal 3.5-5.1 [facility] Comment on above: Order Comment: Order Date: 05/23/24 Order Info: 0184-1 - CBCD Performed By: #### L 100.0100 #### [facility] [address] [place], [address] Sodium [Moles/Vol] 140 mmol/L Normal 136-145 [facility] Comment on above: Order Comment: Order Date: 05/23/24 Order Info: 018- - CBCD Performed By: #### L 100.0100 #### [facility] [address] [place], [address] T PROT 6.8 g/dL Normal 6.4-8.2 [facility] Comment on above: Order Comment: Order Date: 05/23/24 Order Info: 018- - CBCD Performed By: #### L 100.0100 #### [facility] [address] [place], [address] Urea nitrogen [Mass/Vol] 14 mg/dL Normal 7-18 [facility] Comment on above: Order Comment: Order Date: 05/23/24 Order Info: 0184-1 - CBCD Performed By: #### L 100.0100 #### [facility] [address] [place], [address] Direct serum free thyroxine (FT4) measurementOrdered By: Breezy Alegria on 08-23-2024 Free T4 [Mass/Vol] 0.93 ng/dL 0.76-1.46 [facility] Eosinophil percentageOrdered By: Breezy Alegria on 08-23-2024 Eosinophils/100 WBC (Bld) 18.0 % High 0-5 [facility] Erythrocyte distribution wid th ratioOrdered By: Breezy Alegria on 08-23-2024 Erythrocyte distribution width (RBC) [Ratio] 13.0 % 11.6-14.6 [facility] Erythrocyte distribution wid th standard deviationOrdered By: Breezy Alegria on 08-23-2024 Erythrocyte distribution width (RBC) [Ratio] 43.7 fl 35.1-43.9 [facility] Glomerular filtration rate ( GFR) estimationOrdered By: Breezy Alegria on 08-23-2024 GFR/1.73 sq M.predicted among non-blacks MDRD (S/P/Bld) [Vol rate/Area] 128 mL/min/{1.73_m2} >60 [facility] Comment on above: Non- GFR Calc Glucose measurementOrdered B y: Breezy Alegria on 08-23-2024 Glucose [Mass/Vol] 95 mg/dL 74-106 [facility] Hematocrit Auto (Bld) [Volum e fraction]Ordered By: Breezy Alegria on 08-23-2024 Hematocrit (Bld) [Volume fraction] 36.5 % Low 37-47 [facility] Hemoglobin measurementOrdere d By: Breezy Alegria on 08-23-2024 Hemoglobin (Bld) [Mass/Vol] 11.8 g/dL Low 12.0-15.0 [facility] High density lipoprotein (HD L) measurementOrdered By: Breezy Alegria on 08-23-2024 Cholesterol in HDL [Mass/Vol] 53 mg/dL >40 [facility] Comment on above: The drugs N-Acetylcy steine and Metamizole may falsely depress this assay. Reference Range HDL <40 mg/dL Low HDL Cholesterol HDL >or= 60 mg/dL High HDL Cholesterol Immature granulocytes/100 WB C Auto (Bld)Ordered By: Breezy Alegria on 08-23-2024 Immature granulocytes/100 WBC (Bld) 0.200 % 0.0-0.9 [facility] Comment on above: IG% - Immature Granu locytes (promyelocytes, myelocytes and metamyelocytes) > 1% indicates that a LEFT SHIFT is Present. Laboratory - Chemistry and C hemistry - challengeOrdered By: Breezy Alegria on 08-23-2024 AST [Catalytic activity/Vol] 24 U/L 15-37 [facility] [facility]24 Cholesterol [Mass/Vol] 142 mg/dL Normal 200 [facility] Comment on above: Order Comment: Order Date: 08/24/24 Order Info: 2132-03 Result Comment: <200 mg/dL Desirable 200-240 mg/dL Borderline >240 mg/dL High Risk Performed By: #### L 506.0250, L503.6150, L503.6075, L503.6550, L503.0105 #### [facility] [address] [place], [address] Cholesterol in HDL [Mass/Vol] 53 mg/dL Normal [facility] Comment on above: Order Comment: Order Date: 08/24/24 Order Info: 2132-03 Result Comment: The drugs N-Acetylcysteine and Metamizole may falsely depress this assay. Reference Range HDL <40 mg/dL Low HDL Cholesterol HDL >or= 60 mg/dL High HDL Cholesterol Performed By: #### L 506.0250, L503.6150, L503.6075, L503.6550, L503.0105 #### [facility] [address] [place], [address] Cholesterol in LDL [Mass/Vol] 58 mg/dL Normal 0-130 [facility] Comment on above: Order Comment: Order Date: 08/24/24 Order Info: 2132-03 - B12 Performed By: #### L 506.0250, L503.6150, L503.6075, L503.6550, L503.0105 #### [facility] [address] [place], [address] Cholesterol in VLDL [Mass/Vol] 31 mg/dL Normal 5-40 [facility] Comment on above: Order Comment: Order Date: 08/24/24 Order Info: 2132-03 B12 Performed By: #### L 506.0250, L503.6150, L503.6075, L503.6550, L503.0105 #### [facility] [address] [place], [address] Triglyceride [Mass/Vol] 153 mg/dL Normal [facility] Comment on above: Order Comment: Order Date: 08/24/24 Order Info: 2132-9 - B12 Result Comment: The drugs N-Acetylcysteine and Metamizole may falsely depress this assay. Serum Triglycerides Reference Interval Normal <150 mg/dL Borderline high 150 - 199 mg/dL High 200 - 499 mg/dL Very High > or = 500 mg/dL Performed By: #### L 506.0250, L503.6150, L503.6075, L503.6550, L503.0105 #### [facility] [address] [place], [address] Low density lipoprotein (LDL ) cholesterol measurementOrdered By: Breezy Alegria on 08-23-2024 Cholesterol in LDL [Mass/Vol] 58 mg/dL 0-130 [facility] MCV (mean corpuscular volume ) determinationOrdered By: Breezy Alegria on 08-23-2024 MCV (RBC) [Entitic vol] 92.2 fL 81-99 [facility] Mean corpuscular hemoglobin (MCH) determinationOrdered By: Breezy Alegria on 08-23-2024 MCH (RBC) [Entitic mass] 29.8 pg 27.0-32.0 [facility] Mean corpuscular hemoglobin concentration (MCHC) determinationOrdered By: Breezy Alegria on 08-23-2024 MCHC (RBC) [Mass/Vol] 32.3 g/dL 32-36 [facility] Mean platelet volume determi nationOrdered By: Breezy Alegria on 08-23-2024 Platelet mean volume (Bld) [Entitic vol] 10.8 fL 6.2-12.0 [facility] Monocyte percentageOrdered B y: Breezy Alegria on 08-23-2024 Monocytes/100 WBC (Bld) 9.4 % 0-10 [facility] Neutrophil percentageOrdered By: Breezy Alegria on 08-23-2024 Neutrophils/100 WBC (Bld) 35.8 % Low 47-70 [facility] Nucleated red blood cell per centageOrdered By: Breezy Alegria on 08-23-2024 Nucleated RBC/100 WBC (Bld) [Ratio] 0 % 0-5 [facility] Platelet countOrdered By: Olya Alegria on 08-23-2024 Platelets (Bld) [#/Vol] 266 10*3/uL 150-450 [facility] Potassium measurementOrdered By: Breezy Alegria on 08-23-2024 Potassium [Moles/Vol] 4.3 mmol/L 3.5-5.1 [facility] RBC Auto (Bld) [#/Vol]Ordere d By: Breezy Alegria on 08-23-2024 RBC (Bld) [#/Vol] 3.96 10*6/uL Low 4.2-5.4 [facility] Serum anion gap measurementO rdered By: Breezy Alegria on 08-23-2024 Anion gap [Moles/Vol] 5 mmol/L 5-15 [facility] Serum globulin measurementOr dered By: Breezy Alegria on 08-23-2024 Globulin (S) [Mass/Vol] 3.3 g/dL 2.2-4.2 [facility] Serum or plasma alanine hummel otransferase (ALT) measurementOrdered By: Breezy Alegria on 08-23-2024 ALT [Catalytic activity/Vol] 31 U/L 13-56 [facility] Serum or plasma albumin new urement (mass/volume)Ordered By: Breezy Alegria on 08-23-2024 Albumin [Mass/Vol] 3.5 g/dL 3.2-5.0 [facility] Serum or plasma alkaline spencer sphatase measurementOrdered By: Breezy Alegria on 08-23-2024 ALP [Catalytic activity/Vol] 78 U/L 45-117 [facility] Serum or plasma calcium new urement (mass/volume)Ordered By: Breezy Alegria on 08-23-2024 Calcium [Mass/Vol] 9.2 mg/dL 8.5-10.1 [facility] Serum or plasma cholesterol measurement (mass/volume)Ordered By: Breezy Alegria on 08-23-2024 Cholesterol [Mass/Vol] 142 mg/dL <200 [facility] Comment on above: <200 mg/dL Desirable 200-240 mg/dL Borderline >240 mg/dL High Risk Serum or plasma creatinine m easurement (mass/volume)Ordered By: Breezy Alegria on 08-23-2024 Creatinine [Mass/Vol] 0.54 mg/dL Low 0.55-1.02 [facility] Comment on above: The validity of the calculated GFR & GFRAA in patients over 70 years has not been determined. Clinical correlation is essential. Serum or plasma thyroid stim ulating hormone (TSH) measurement (units/volume)Ordered By: Breezy Alegria on 08-23-2024 TSH Qn 0.836 uIU/mL 0.358-3.740 [facility] Serum or plasma urea nitroge n measurement (mass/volume)Ordered By: Breezy lAegria on 08-23-2024 Urea nitrogen [Mass/Vol] 14 mg/dL 7-18 [facility] Sodium levelOrdered By: Breezy Alegria on 08-23-2024 Sodium [Moles/Vol] 140 mmol/L 136-145 [facility] T4 Free Directon 08-23-2024 T4 FREE DIRECT 0.93 ng/dL Normal 0.76-1.46 [facility] Comment on above: Order Comment: Order Date: 08/24/24 Order Info: 2132-9 - B12 Performed By: #### L 506.0250, L503.6150, L503.6075, L503.6550, L503.0105 #### [facility] [address] [facility] [id number] Thyroid Stim Hormone (TSH)on 08-23-2024 TSH 0.836 uIU/mL Normal 0.358-3.740 [facility] Comment on above: Order Comment: Order Date: 08/24/24 Order Info: 2132-9 - B12 Performed By: #### L 506.0250, L503.6150, L503.6075, L503.6550, L503.0105 #### [facility] [address] [place], [place], [address] Total proteinOrdered By: Rebel Alegria on 08-23-2024 Protein [Mass/Vol] 6.8 g/dL 6.4-8.2 [facility] Triglycerides measurementOrd ered By: Breezy Alegria on 08-23-2024 Triglyceride [Mass/Vol] 153 mg/dL <199 [facility] Comment on above: The drugs N-Acetylcy steine and Metamizole may falsely depress this assay.Serum Triglycerides Reference Interval Normal <150 mg/dL Borderline high 150 - 199 mg/dL High 200 - 499 mg/dL Very High > or = 500 mg/dL Very low density lipoprotein (VLDL) cholesterol measurementOrdered By: Breezy Alegria on 08-23-2024 Very low density lipoprotein (VLDL) cholesterol measurement 31 mg/dL 5-40 [facility] Vitamin D,25 Hydroxyon 08-23 Vitamin D 25-OH 62.8 ng/mL Normal [facility] Comment on above: Order Comment: Order Date: 05/23/24 Order Info: 0184-1 - CBCD Result Comment: Kathy min D 25(OH) Status Range Deficiency <20 ng/mL (50nmol/L) Insufficiency 20 - 30 ng/mL (50 - 75 nmol/L) Sufficiency 30 - 100 ng/mL (75 - 250 nmol/L) Toxicity >100 ng/mL (>250 nmol/L) Performed By: #### L 100.0100 #### [facility] [address] [place], [place], [id number] White blood cell (WBC) count Ordered By: Breezy Alegria on 08-23-2024 WBC (Bld) [#/Vol] 4.5 10*3/uL 4.4-11.0 [facility] SCRN MAMM (CAD)W/GATO BILATo n 06-29-2024 SCRN MAMM (CAD)W/GATO BILAT [facility] Imaging Services [address] [place], [place] [address] SCRN MAMM (CAD)W/GATO BILAT MR#: [id number] Acct: [id number] Name: TIERRA MALCOLM Rep #: [id number] : 1975 F 49 From: Jerome walker MD PCP: Dr. Breezy Alegria MD Status: REG CLI Study: SCRN MAMM (CAD)W/GATO BILAT Date of Exam: 06/12 03/05 Exam# [id number] Ordering Dr: Arlene Mcqueen NP DOCTOR'S ASSISTANT -C [id number] MAMMOGRAPHY - BILATERAL SCREENING REASON FOR EXAM: Female, 49 years old. Routine annual screening examination. PERTINENT HISTORY: Mother with breast cancer. Prior left ultrasound-guided breast biopsies. TECHNIQUE: Digital bilateral breast gato (3D mammographic acquisition) in the CC and MLO projections. 2-D mediolateral oblique (MLO) and craniocaudad (CC) views of both breasts were obtained. CAD: Full Field Digital Mammography with Computer Added Detection was performed. COMPARISON: Comparison is made with prior study dated June 24, 2023 and June 16, 2022. FINDINGS: Breast Composition: The breasts are heterogeneously dense, which may obscure small masses. There are no dominant masses or suspicious calcifications. A tissue clip marker is once again seen within the knee 0.3 mm nodule in the deep central medial aspect of the left breast. A second tissue clip marker is also seen in the 9.6 mm nodule in the anterior upper lateral aspect of the left breast. No other significant abnormalities are identified. There has been no significant change since the prior study. BI/SCRN MAMM (CAD)W/GATO BILAT IMPRESSION: Stable bilateral screening mammogram. Yearly follow-up mammogram recommended. (A) ASSESSMENT CATEGORY: BIRADS Category 2: Benign. A letter regarding these results will be sent to the patient by the facility within 30 days. Approximately 10% of breast cancers are not detected by mammography. A normal mammogram should not delay biopsy of a clinically suspicious abnormality. [id number] Electronically Signed: Jerome Fay MD at 9:35 EST , CC: KANDY Mcqueen; Dr. Breezy Alegria MD Vehicle Operator: Signed Normal [facility] Colonoscopy Reporton 024 Colonoscopy Report [facility] Medical Records Department [address] [place] [address] Colonoscopy Report MR#: [id number] Acct: [id number] Name: TIERRA MALCOLM Rep #: [id number] : 1975 49 From: Winsome Rangel MD PCP: Dr. Breezy Alegria MD Status:REG [facility] Patient Name: Tierra Malcolm Procedure Date: 06/13/2024 8:22 AM Date of : 1975 Age: 49 Procedure: Colonoscopy Indications: Screening in patient at increased risk: Colorectal cancer in father before age 60 Providers: Winsome Rangel MD Referring MD: Breezy Alegria Medicines: Monitored Anesthesia Care Patient Profile: This is a 49 year old female. Last Colonoscopy: December 2018. Complications: No immediate complications. Procedure: Pre-Anesthesia Assessment: - Prior to the procedure, a History and Physical was performed, and patient medications and allergies were reviewed. The patient's tolerance of previous anesthesia was also reviewed. The risks and benefits of the procedure and the sedation options and risks were discussed with the patient. All questions were answered, and informed consent was obtained. Prior Anticoagulants: The patient has taken no anticoagulant or antiplatelet agents. ASA Grade Assessment: Per anesthesia. After reviewing the risks and benefits, the patient was deemed in satisfactory condition to undergo the procedure. After I obtained informed consent, the scope was passed under direct vision. Throughout the procedure, the patient's blood pressure, pulse, and oxygen saturations were monitored continuously. The Colonoscope was introduced through the anus and advanced to the terminal ileum. The colonoscopy was performed without difficulty. The patient tolerated the procedure well. The quality of the bowel preparation was good. Scope In: 8:28:01 AM Scope Withdrawal Time 0 hours 7 minutes 25 seconds Scope Out: 8:41:56 AM Total Procedure Duration Time 0 hours 13 minutes 55 seconds Findings: Hemorrhoids were found on perianal exam. Non-bleeding internal hemorrhoids were found. The hemorrhoids were Grade I (internal hemorrhoids that do not prolapse). The entire examined colon appeared normal. The terminal ileum appeared normal. Impression: - Hemorrhoids found on perianal exam. - Non-bleeding internal hemorrhoids. - The entire examined colon is normal. - The examined portion of the ileum was normal. - No specimens collected. Recommendation: - Discharge patient to home. - Resume previous diet. - Continue present medications. - Repeat colonoscopy in 5 years for screening purposes. Procedure Code(s): --- Professional --- G0105, PT, Colorectal cancer screening; colonoscopy on individual at high risk Diagnosis Code(s): --- Professional --- Z80.0, Family history of malignant neoplasm of digestive organs K64.0, First degree hemorrhoids CPT copyright 2021 [employer]. All rights reserved. The codes documented in this report are preliminary and upon floor installation mechanic review may be revised to meet current compliance requirements. MD Winsome Munoz MD 06/13/2024 8:47:44 AM This report has been signed electronically. Number of Addenda: 0 Note Initiated On: 06/13/2024 8:22 AM 06/13/24846 Date Winsome Rangel MD Cosigner Signature: Date (if indicated) CC: Dr. Breezy Alegria MD; Dr. Winsome Rangel MD Date Dictated: 06/13/24821 Date Transcribed: Vehicle Operator: TR Signed [facility] MR/POSTOP.Em 06-13-2024 MR/POSTOP.[facility] Medical Records Department [address] [place] [address] Anesthesia Postop Eval I 06/13/2449 MR#: [id number] Acct: [id number] Name: GOLDTIERRA SATYA Rep #: [id number] : 1975 49 From: Nikolas Abrams PCP: Dr. Breezy Alegria MD Status:[facility] Y Race: C Location: [place] [address] Anesthesia: Postop Eval I Current Vital Signs Temperature: 97.1 F Pulse Rate: 88 Blood Pressure: 121/62 Respiratory Rate: 16 Pulse Ox: 97 Oxygen Delivery Method: Room Air Assessment Airway patent: Yes Spontaneous unlabored respirations: Yes Mental status: Awake and Calm nausea: No Vomiting: No Anesthesia Complication: No Fluid Hydration Crystalloid volume administer (ml): 50 Total IV fluid infused: 50 Progress Note Anesthesia document: Postop Eval 1 completed: Yes 06/13/24850 Date Nikolas Grantignbronwyn Signature: Date CC: Signed Normal [facility] MR/WFCNPUAV0rd 06-13-2024 [facility] Medical Records Department [address] [place] [address] Anesthesia Postop Eval II 06/13/24923 MR#: [id number] Acct: [id number] Name: TIERRA MALCOLM Rep #: [id number] : 1975 49 From: Nestor Dubon MD PCP: Dr. Breezy Alegria MD Status:[facility] Y Race: C Location: [place] Anesthesia Postop Eval I Sum Postop Eval Completion status Anesthesia document: Postop Eval 1 completed: Yes Anesthesia Postop Eval I Summary Anesthesia Postop Eval I Summary: Anesthesia Postop Eval I: Assessment Summary Airway patent Yes 06/13/24 08:51 [email or web address] Spontaneous unlabored Yes 06/13/24 08:51 [email or web address] respirations Mental status Awake,Calm 06/13/24 08:51 [email or web address] nausea No 06/13/24 08:51 [email or web address] Vomiting No 06/13/24 08:51 [email or web address] Anesthesia Postop Eval I: Fluid Summary Crystalloid volume administer 50 06/13/24 08:51 [email or web address] (ml) Colloids volume administered ( ml) Blood Product volume administered (ml) Total IV fluid infused 50 06/13/24 08:51 [email or web address] Anesthesia Postop Eval I: Summary Notes Anesthesia Complication No 06/13/24 08:51 [email or web address] Anesthesia Complication Comment: Post-operative progress note Anesthesia: Postop Eval II Evaluation Mental status: Awake Pain Level: 0 nausea: No Vomiting: No 06/13/24923 Date Nestor Hampton Signature: Date CC: Signed Normal [facility] Vitamin D 1,25-Dihydroxyon 07-26-2023 VIT D 1,25 DIHY 67.7 pg/mL Normal 24.8-81.5 [facility] Comment on above: Order Comment: Order Date: 08/24/24 Order Info: 2132-9 - B12 Result Comment: Perf ormed at: [facility] [id number] [employer] Manager: Sarah Harmon MD, Phone: [phone] Performed By: #### L 506.0250, L503.8156, L503.9533, L503.8017, L503.0105 #### [facility] [address] [place], [address] CBC W/Diff, Automatedon 05-13 Absolute Lymph 1.59 X10 3/uL Normal 0.83-4.51 [facility] Comment on above: Order Comment: Order Date: 05/23/24 Order Info: 0184-1 - CBCD Performed By: #### L 100.0100 #### [facility] [address] [place], [address] Absolute Neut 2.0 X10 3/uL Normal 2.0-7.7 [facility] Comment on above: Order Comment: Order Date: 05/23/24 Order Info: 0184-1 - CBCD Performed By: #### L 100.0100 #### [facility] [address] [place], [address] Basophils/100 WBC (Bld) 0.8 % Normal 0-1 [facility] Comment on above: Order Comment: Order Date: 05/23/24 Order Info: 0184-1 - CBCD Performed By: #### L 100.0100 #### [facility] [address] [place], [address] Eosinophils/100 WBC (Bld) 11.6 % High 0-5 [facility] Comment on above: Order Comment: Order Date: 05/23/24 Order Info: 0184-1 - CBCD Performed By: #### L 100.0100 #### [facility] [address] [place], [address] Erythrocyte distribution width (RBC) [Ratio] 12.6 % Normal 11.6-14.6 [facility] Comment on above: Order Comment: Order Date: 05/23/24 Order Info: 0184-1 - CBCD Performed By: #### L 100.0100 #### [facility] [address] [place], [address] Hematocrit (Bld) [Volume fraction] 35.9 % Low 37-47 [facility] Comment on above: Order Comment: Order Date: 05/23/24 Order Info: 0184-1 - CBCD Performed By: #### L 100.0100 #### [facility] [address] [place], [address] Hemoglobin (Bld) [Mass/Vol] 12.1 g/dL Normal 12.0-15.0 [facility] Comment on above: Order Comment: Order Date: 05/23/24 Order Info: 018-1 - CBCD Performed By: #### L 100.0100 #### [facility] [address] [place], [address] IG% 0.200 Normal 0.0-0.9 [facility] Comment on above: Order Comment: Order Date: 05/23/24 Order Info: 018- - CBCD Result Comment: IG% - Immature Granulocytes (promyelocytes, myelocytes and metamyelocytes) > 1% indicates that a LEFT SHIFT is Present. Performed By: #### L 100.0100 #### [facility] [address] [place], [address] Lymphocytes/100 WBC (Bld) 33.6 % Normal 19-41 [facility] Comment on above: Order Comment: Order Date: 05/23/24 Order Info: 018- - CBCD Performed By: #### L 100.0100 #### [facility] [address] [place], [address] MCH (RBC) [Entitic mass] 31.0 pg Normal 27.0-32.0 [facility] Comment on above: Order Comment: Order Date: 05/23/24 Order Info: 018- - CBCD Performed By: #### L 100.0100 #### [facility] [address] [place], [address] MCHC (RBC) [Mass/Vol] 33.7 g/dL Normal 32-36 [facility] Comment on above: Order Comment: Order Date: 05/23/24 Order Info: 018- - CBCD Performed By: #### L 100.0100 #### [facility] [address] [place], [address] MCV (RBC) [Entitic vol] 92.1 fL Normal 81-99 [facility] Comment on above: Order Comment: Order Date: 05/23/24 Order Info: 0184-1 - CBCD Performed By: #### L 100.0100 #### [facility] [address] [place], [address] Monocytes/100 WBC (Bld) 11.2 % High 0-10 [facility] Comment on above: Order Comment: Order Date: 05/23/24 Order Info: 0184-1 - CBCD Performed By: #### L 100.0100 #### [facility] [address] [place], [address] Neutrophils/100 WBC (Bld) 42.6 % Low 47-70 [facility] Comment on above: Order Comment: Order Date: 05/23/24 Order Info: 0184-1 - CBCD Performed By: #### L 100.0100 #### [facility] [address] [place], [address] Nucleated RBC (Bld) [#/Vol] 0 10*3/uL Normal 0-5 [facility] Comment on above: Order Comment: Order Date: 05/23/24 Order Info: 0184-1 - CBCD Performed By: #### L 100.0100 #### [facility] [address] [place], [address] Platelet mean volume (Bld) [Entitic vol] 10.9 fL Normal 6.2-12.0 [facility] Comment on above: Order Comment: Order Date: 05/23/24 Order Info: 0184-1 - CBCD Performed By: #### L 100.0100 #### [facility] [address] [place], [address] Platelets (Bld) [#/Vol] 254 10*3/uL Normal 150-450 [facility] Comment on above: Order Comment: Order Date: 05/23/24 Order Info: 0184-1 - CBCD Performed By: #### L 100.0100 #### [facility] [address] [place], [address] RBC (Bld) [#/Vol] 3.90 10*6/uL Low 4.2-5.4 [facility] Comment on above: Order Comment: Order Date: 05/23/24 Order Info: 0184- - CBCD Performed By: #### L 100.0100 #### [facility] [address] [place], [address] RDW SD 42.2 fl Normal 35.1-43.9 [facility] Comment on above: Order Comment: Order Date: 05/23/24 Order Info: [id number] - CBCD Performed By: #### L 100.0100 #### [facility] [address] [place], [address] WBC (Bld) [#/Vol] 4.7 10*3/uL Normal 4.4-11.0 [facility] Comment on above: Order Comment: Order Date: 05/23/24 Order Info: 0184 - CBCD Performed By: #### L 100.0100 #### [facility] [address] [place], [address] Comprehensive Metabolic Prof ilon 05-24-2024 Albumin [Mass/Vol] 3.6 g/dL Normal 3.2-5.0 [facility] Comment on above: Order Comment: Order Date: 05/23/24 Order Info: [id number] - CMP Order Info: [id number] - LIPID Order Info: [id number] - TSH Order Info: 302-7 - T4F Performed By: #### L 500.4050 #### [facility] [address] [place], [address] Albumin/Globulin [Mass ratio] 1.2 {ratio} Normal 0.9-2.4 [facility] Comment on above: Order Comment: Order Date: 05/23/24 Order Info: [id number] - CMP Order Info: [id number] - LIPID Order Info: [id number] - TSH Order Info: [id number] - T4F Performed By: #### L 500.4050 #### [facility] [address] [place], [address] ALK P 70 U/L Normal 45-117 [facility] Comment on above: Order Comment: Order Date: 05/23/24 Order Info: 86-1 - CMP Order Info: [id number] - LIPID Order Info: [id number] - TSH Order Info: [id number] - T4F Performed By: #### L 500.4050 #### [facility] [address] [place], [address] ALT [Catalytic activity/Vol] 26 U/L Normal 13-56 [facility] Comment on above: Order Comment: Order Date: 05/23/24 Order Info: 86-1 - CMP Order Info: [id number] - LIPID Order Info: [id number] - TSH Order Info: [id number] - T4F Performed By: #### L 500.4050 #### [facility] [address] [place], [address] AST [Catalytic activity/Vol] 12 U/L Low 15-37 [facility] Comment on above: Order Comment: Order Date: 05/23/24 Order Info: [id number] - CMP Order Info: [id number] - LIPID Order Info: [id number] - TSH Order Info: 3024-7 - T4F Performed By: #### L 500.4050 #### [facility] [address] [place], [address] Bilirubin [Mass/Vol] 0.40 mg/dL Normal 0.20-1.00 [facility] Comment on above: Order Comment: Order Date: 05/23/24 Order Info: 86-1 - CMP Order Info: [id number] - LIPID Order Info: 3016-3 - TSH Order Info: 3024-7 - T4F Result Comment: For patients on eltrombopag therapy, use of Dimension Otis TBIL is not recommended. Performed By: #### L 500.4050 #### [facility] [address] [place], [address] BUN/CRE 16.3 RATIO Normal 10-20 [facility] Comment on above: Order Comment: Order Date: 05/23/24 Order Info: 0786-1 - CMP Order Info: [id number] - LIPID Order Info: 3016-3 - TSH Order Info: 3024-7 - T4F Performed By: #### L 500.4050 #### [facility] [address] [place], [address] CA,Total 8.7 mg/dL Normal 8.5-10.1 [facility] Comment on above: Order Comment: Order Date: 05/23/24 Order Info: 86-1 - CMP Order Info: [id number] - LIPID Order Info: 3016-3 - TSH Order Info: 3024-7 - T4F Performed By: #### L 500.4050 #### [facility] [address] [place], [address] Chloride [Moles/Vol] 110 mmol/L High 98-107 [facility] Comment on above: Order Comment: Order Date: 05/23/24 Order Info: 785-1 - CMP Order Info: [id number] - LIPID Order Info: 3013 - TSH Order Info: 3024-7 - T4F Performed By: #### L 500.4050 #### [facility] [address] [place], [address] CO2 [Moles/Vol] 24.0 mmol/L Normal 21.0-32.0 [facility] Comment on above: Order Comment: Order Date: 05/23/24 Order Info: 785-1 - CMP Order Info: [id number] - LIPID Order Info: 3016-3 - TSH Order Info: 3024-7 - T4F Performed By: #### L 500.4050 #### [facility] [address] [place], [address] Creatinine [Mass/Vol] 0.62 mg/dL Normal 0.55-1.02 [facility] Comment on above: Order Comment: Order Date: 05/23/24 Order Info: 785-07 - CMP Order Info: - LIPID Order Info: [id number] - TSH Order Info: 3024-01 - T4F Result Comment: The validity of the calculated GFR GFRAA in patients over 70 years has not been determined. Clinical correlation is essential. Performed By: #### L [id number] #### [facility] [address] [place], [address] EST GFR - AA 133 mL/min Normal >60 [facility] Comment on above: Order Comment: Order Date: 05/23/24 Order Info: 785-07 - CMP Order Info: - LIPID Order Info: [id number] - TSH Order Info: 3024-01 - T4F Result Comment: Afri can Malian GFR Calc Performed By: #### L 500.4050 #### [facility] [address] [place], [place], [address] GAP 5 Normal 5-15 [facility] Comment on above: Order Comment: Order Date: 05/23/24 Order Info: 785-07 - CMP Order Info: - LIPID Order Info: [id number] - TSH Order Info: 3024-01 - T4F Performed By: #### L 500.4050 #### [facility] [address] [place], [place], [address] GFR/1.73 sq M.predicted among non-blacks MDRD (S/P/Bld) [Vol rate/Area] 110 mL/min/{1.73_m2} Normal >60 [facility] Comment on above: Order Comment: Order Date: 05/23/24 Order Info: 785-07 - CMP Order Info: - LIPID Order Info: [id number] - TSH Order Info: 7 - T4F Result Comment: Non- GFR Calc Performed By: #### L 500.4050 #### [facility] [address] [place], [address] Globulin (S) [Mass/Vol] 3.1 g/dL Normal 2.2-4.2 [facility] Comment on above: Order Comment: Order Date: 05/23/24 Order Info: 785- - CMP Order Info: - LIPID Order Info: 3 - TSH Order Info: 7 - T4F Performed By: #### L [id number] #### [facility] [address] [place], [address] Glucose [Mass/Vol] 102 mg/dL Normal 74-106 [facility] Comment on above: Order Comment: Order Date: 05/23/24 Order Info: 785-07 - CMP Order Info: - LIPID Order Info: [id number] - TSH Order Info: 7 - T4F Result Comment: Fast ing Glucose result from 100 to 125 mg/dL suggests IMPAIRED HOMEOSTASIS per A.D.A. criteria. Performed By: #### L 500.4050 #### [facility] [address] [place], [address] Potassium [Moles/Vol] 4.1 mmol/L Normal 3.5-5.1 [facility] Comment on above: Order Comment: Order Date: 05/23/24 Order Info: 785-07 - CMP Order Info: [id number] - LIPID Order Info: 3 - TSH Order Info: 7 - T4F Performed By: #### L 500.4050 #### [facility] [address] [place], [address] Sodium [Moles/Vol] 139 mmol/L Normal 136-145 [facility] Comment on above: Order Comment: Order Date: 05/23/24 Order Info: 785-07 - CMP Order Info: - LIPID Order Info: 3 - TSH Order Info: 3027 - T4F Performed By: #### L 500.4050 #### [facility] [address] [place], [address] T PROT 6.7 g/dL Normal 6.4-8.2 [facility] Comment on above: Order Comment: Order Date: 05/23/24 Order Info: 0786-1 - CMP Order Info: [id number] - LIPID Order Info: 3 - TSH Order Info: 3024-01 - T4F Performed By: #### L 500.4050 #### [facility] [address] [place], [place], [address] Urea nitrogen [Mass/Vol] 10 mg/dL Normal 7-18 [facility] Comment on above: Order Comment: Order Date: 05/23/24 Order Info: 0786-1 - CMP Order Info: [id number] - LIPID Order Info: 3 - TSH Order Info: 3024-01 - T4F Performed By: #### L 500.4050 #### [facility] [address] [place], [place], [address] Lipid Profileon 05-24-2024 Cholesterol [Mass/Vol] 140 mg/dL Normal 200 [facility] Comment on above: Order Comment: Order Date: 08/24/24 Order Info: 7 - TIBC Order Info: 2497-10 - Order Info: 2275-10 - NANCY Order Info: 8 - FOLS Result Comment: <200 mg/dL Desirable 200-240 mg/dL Borderline >240 mg/dL High Risk Performed By: #### L 506.0250, L503.6150, L503.6075, L503.6550, L503.0105 #### [facility] [address] [place], [place], [address] Cholesterol in HDL [Mass/Vol] 44 mg/dL Normal [facility] Comment on above: Order Comment: Order Date: 08/24/24 Order Info: 2500-7 - TIBC Order Info: 2497-10 - FE Order Info: 2275-10 - NANCY Order Info: 228-8 - FOLS Result Comment: The drugs N-Acetylcysteine and Metamizole may falsely depress this assay. Reference Range HDL <40 mg/dL Low HDL Cholesterol HDL >or= 60 mg/dL High HDL Cholesterol Performed By: #### L 506.0250, L503.6150, L503.6075, L503.6550, L503.0105 #### [facility] [address] [place], [address] Cholesterol in LDL [Mass/Vol] 49 mg/dL Normal 0-130 [facility] Comment on above: Order Comment: Order Date: 08/24/24 Order Info: 2500-01 - TIBC Order Info: 2497-10 Order Info: 2275-10 Order Info: 2284-02 - FOLS Performed By: #### L 506.0250, L503.6150, L503.6075, L503.6550, L503.0105 #### [facility] [address] [place], [address] Cholesterol in VLDL [Mass/Vol] 47 mg/dL High 5-40 [facility] Comment on above: Order Comment: Order Date: 08/24/24 Order Info: 2500-01 - TIBC Order Info: 2497-10 Order Info: 2275-10 Order Info: 2284-02 - FOLS Performed By: #### L 506.0250, L503.6150, L503.6075, L503.6550, L503.0105 #### [facility] [address] [place], [address] Triglyceride [Mass/Vol] 233 mg/dL High [facility] Comment on above: Order Comment: Order Date: 08/24/24 Order Info: 2500-01 - TIBC Order Info: 2497-10 Order Info: 2275-10 Order Info: 2284-02 - FOLS Result Comment: The drugs N-Acetylcysteine and Metamizole may falsely depress this assay. Serum Triglycerides Reference Interval Normal <150 mg/dL Borderline high 150 - 199 mg/dL High 200 - 499 mg/dL Very High > or = 500 mg/dL Performed By: #### L 506.0250, L503.6150, L503.6075, L503.6550, L503.0105 #### [facility] [address] [place], [place], [address] T4 Free Directon 05-24-2024 T4 FREE DIRECT 0.76 ng/dL Normal 0.76-1.46 [facility] Comment on above: Order Comment: Order Date: 08/24/24 Order Info: 2132-9 - B12 Performed By: #### L 506.0250, L503.6150, L503.6075, L503.6550, L503.0105 #### [facility] [address] [place], [place], [address] Thyroid Stim Hormone (TSH)on 05-24-2024 TSH 1.940 uIU/mL Normal 0.358-3.740 [facility] Comment on above: Order Comment: Order Date: 05/23/24 Order Info: 0786-1 - CMP Order Info: 11813-1 - LIPID Order Info: 3016-3 - TSH Order Info: 3024-7 - T4F Performed By: #### L 501.9520 #### [facility] [address] [place], [address] Thyroglobulin w/Anti-TG ABon 01-28-2024 Anti-TG AB < 1.0 Normal 0.0-0.9 [facility] Comment on above: Order Comment: Order Date: 01/26/24 Order Info: 81493-2 - TSIMM Result Comment: Thyr oglobulin Antibody measured by [employer] Cecelia Methodology It should be noted that the presence of thyroglobulin antibodies may not be pathogenic nor diagnostic, especially at very low levels. The assay computer programming professor has found that four percent of individuals without evidence of thyroid disease or autoimmunity will have positive TgAb levels up to 4 IU/mL. Performed By: #### L 3300.6820, L3300.6900 #### [facility] [address] [place], [place], [address] THYROGLOB QUANT 13.7 ng/mL Normal 1.5-38.5 [facility] Comment on above: Order Comment: Order Date: 01/26/24 Order Info: 80545-1 - TSIMM Result Comment: Acco rding to the National Academy of Clinical Biochemistry, the reference interval for Thyroglobulin (TG) should be related to euthyroid patients and not for patients who underwent thyroidectomy. TG reference intervals for these patients depend on the residual mass of the thyroid tissue left after surgery. Establishing a post-operative baseline is recommended. The assay limit of quantitation is 0.1 ng/mL Thyroglobulin measured by [employer] Immunometric Assay Performed By: #### L 4143.3448, L3300.0823 #### [facility] [address] [place], [place], [address] Thyroid Peroxidase ABon 01-10 THYR PEROX AB 11 IU/mL Normal 0-34 [facility] Comment on above: Order Comment: Order Date: 01/26/24 Order Info: [id number] - TSIMM Result Comment: Perf ormed at: - [facility] [address] [id number] [employer] Manager: Sarah Harmon MD, Phone: [phone] Performed at: - [facility] [address] [id number] [employer] Plant Manager: Jose Miguel Grimm PhD, Phone: [phone] Performed By: #### L 8983.0291, U4592.7176 #### [facility] [address] [place], [place], [address] Thyroid Stim Immunoglobon THY STIM IMMUNO <0.10 Normal 0.00-0.55 [facility] Comment on above: Order Comment: Order Date: 08/24/24 Order Info: 2132-9 - B12 Performed By: #### L 506.0250, L503.6150, L503.6097, L503.6550, L503.0105 #### [facility] [address] [place], [place], [address] T4 Free Directon 01-26-2024 T4 FREE DIRECT 0.70 ng/dL Low 0.76-1.46 [facility] Comment on above: Order Comment: Order Date: 08/24/24 Order Info: 2132-9 - B12 Performed By: #### L 506.0250, L503.6150, L503.6075, L503.6550, L503.0105 #### [facility] [address] [place], [address] CBC W/Diff, Automatedon 07- Absolute Lymph 1.55 X10 3/uL Normal 0.83-4.51 [facility] Comment on above: Order Comment: Order Date: 05/23/24 Order Info: 0184-1 - CBCD Performed By: #### L 100.0100 #### [facility] [address] [place], [address] Absolute Neut 2.5 X10 3/uL Normal 2.0-7.7 [facility] Comment on above: Order Comment: Order Date: 05/23/24 Order Info: 018- - CBCD Performed By: #### L 100.0100 #### [facility] [address] [place], [address] Basophils/100 WBC (Bld) 0.4 % Normal 0-1 [facility] Comment on above: Order Comment: Order Date: 05/23/24 Order Info: 018-1 - CBCD Performed By: #### L 100.0100 #### [facility] [address] [place], [address] Eosinophils/100 WBC (Bld) 6.4 % High 0-5 [facility] Comment on above: Order Comment: Order Date: 05/23/24 Order Info: 0184-1 - CBCD Performed By: #### L 100.0100 #### [facility] [address] [place], [address] Erythrocyte distribution width (RBC) [Ratio] 12.5 % Normal 11.6-14.6 [facility] Comment on above: Order Comment: Order Date: 05/23/24 Order Info: 018- - CBCD Performed By: #### L 100.0100 #### [facility] [address] [place], [address] Hematocrit (Bld) [Volume fraction] 37.1 % Normal 37-47 [facility] Comment on above: Order Comment: Order Date: 05/23/24 Order Info: 018- - CBCD Performed By: #### L 100.0100 #### [facility] [address] [place], [address] Hemoglobin (Bld) [Mass/Vol] 12.5 g/dL Normal 12.0-15.0 [facility] Comment on above: Order Comment: Order Date: 05/23/24 Order Info: 018- - CBCD Performed By: #### L 100.0100 #### [facility] [address] [place], [address] IG% 0.200 Normal 0.0-0.9 [facility] Comment on above: Order Comment: Order Date: 05/23/24 Order Info: 018- - CBCD Result Comment: IG% - Immature Granulocytes (promyelocytes, myelocytes and metamyelocytes) > 1% indicates that a LEFT SHIFT is Present. Performed By: #### L 100.0100 #### [facility] [address] [place], [address] Lymphocytes/100 WBC (Bld) 31.8 % Normal 19-41 [facility] Comment on above: Order Comment: Order Date: 05/23/24 Order Info: 018- - CBCD Performed By: #### L 100.0100 #### [facility] [address] [place], [address] MCH (RBC) [Entitic mass] 31.6 pg Normal 27.0-32.0 [facility] Comment on above: Order Comment: Order Date: 05/23/24 Order Info: 0184-1 - CBCD Performed By: #### L 100.0100 #### [facility] [address] [place], [address] MCHC (RBC) [Mass/Vol] 33.7 g/dL Normal 32-36 [facility] Comment on above: Order Comment: Order Date: 05/23/24 Order Info: 0184-1 - CBCD Performed By: #### L 100.0100 #### [facility] [address] [place], [address] MCV (RBC) [Entitic vol] 93.7 fL Normal 81-99 [facility] Comment on above: Order Comment: Order Date: 05/23/24 Order Info: 0184-1 - CBCD Performed By: #### L 100.0100 #### [facility] [address] [place], [address] Monocytes/100 WBC (Bld) 10.1 % High 0-10 [facility] Comment on above: Order Comment: Order Date: 05/23/24 Order Info: 0184-1 - CBCD Performed By: #### L 100.0100 #### [facility] [address] [place], [address] Neutrophils/100 WBC (Bld) 51.1 % Normal 47-70 [facility] Comment on above: Order Comment: Order Date: 05/23/24 Order Info: 0184-1 - CBCD Performed By: #### L 100.0100 #### [facility] [address] [place], [address] Nucleated RBC (Bld) [#/Vol] 0 10*3/uL Normal 0-5 [facility] Comment on above: Order Comment: Order Date: 05/23/24 Order Info: 0184-1 - CBCD Performed By: #### L 100.0100 #### [facility] [address] [place], [address] Platelet mean volume (Bld) [Entitic vol] 10.7 fL Normal 6.2-12.0 [facility] Comment on above: Order Comment: Order Date: 05/23/24 Order Info: 0184-1 - CBCD Performed By: #### L 100.0100 #### [facility] [address] [place], [address] Platelets (Bld) [#/Vol] 258 10*3/uL Normal 150-450 [facility] Comment on above: Order Comment: Order Date: 05/23/24 Order Info: 0184-1 - CBCD Performed By: #### L 100.0100 #### [facility] [address] [place], [address] RBC (Bld) [#/Vol] 3.96 10*6/uL Low 4.2-5.4 [facility] Comment on above: Order Comment: Order Date: 05/23/24 Order Info: 0184-1 - CBCD Performed By: #### L 100.0100 #### [facility] [address] [place], [address] RDW SD 43.2 fl Normal 35.1-43.9 [facility] Comment on above: Order Comment: Order Date: 05/23/24 Order Info: 0184-1 - CBCD Performed By: #### L 100.0100 #### [facility] [address] [place], [address] WBC (Bld) [#/Vol] 4.9 10*3/uL Normal 4.4-11.0 [facility] Comment on above: Order Comment: Order Date: 05/23/24 Order Info: 0184-1 - CBCD Performed By: #### L 100.0100 #### [facility] [address] [place], [address] Lipid Profileon 01-22-2024 Cholesterol [Mass/Vol] 145 mg/dL Normal 200 [facility] Comment on above: Order Comment: Order Date: 05/23/24 Order Info: 0184-1 - CBCD Result Comment: <200 mg/dL Desirable 200-240 mg/dL Borderline >240 mg/dL High Risk Performed By: #### L 100.0100 #### [facility] [address] [place], [address] Cholesterol in HDL [Mass/Vol] 61 mg/dL Normal [facility] Comment on above: Order Comment: Order Date: 05/23/24 Order Info: 0184-1 - CBCD Result Comment: The drugs N-Acetylcysteine and Metamizole may falsely depress this assay. Reference Range HDL <40 mg/dL Low HDL Cholesterol HDL >or= 60 mg/dL High HDL Cholesterol Performed By: #### L 100.0100 #### [facility] [address] [place], [address] Cholesterol in LDL [Mass/Vol] 64 mg/dL Normal 0-130 [facility] Comment on above: Order Comment: Order Date: 05/23/24 Order Info: 018- - CBCD Performed By: #### L 100.0100 #### [facility] [address] [place], [address] Cholesterol in VLDL [Mass/Vol] 20 mg/dL Normal 5-40 [facility] Comment on above: Order Comment: Order Date: 05/23/24 Order Info: 0184- - CBCD Performed By: #### L 100.0100 #### [facility] [address] [place], [address] Triglyceride [Mass/Vol] 100 mg/dL Normal [facility] Comment on above: Order Comment: Order Date: 05/23/24 Order Info: 0184-1 - CBCD Result Comment: The drugs N-Acetylcysteine and Metamizole may falsely depress this assay. Serum Triglycerides Reference Interval Normal <150 mg/dL Borderline high 150 - 199 mg/dL High 200 - 499 mg/dL Very High > or = 500 mg/dL Performed By: #### L 100.0100 #### [facility] [address] [place], [address] Liver Profileon 01-22-2024 Albumin [Mass/Vol] 3.7 g/dL Normal 3.2-5.0 [facility] Comment on above: Order Comment: Order Date: 05/23/24 Order Info: 0184-1 - CBCD Performed By: #### L 100.0100 #### [facility] [address] [place], [address] ALK P 78 U/L Normal 45-117 [facility] Comment on above: Order Comment: Order Date: 05/23/24 Order Info: 0184-1 - CBCD Performed By: #### L 100.0100 #### [facility] [address] [place], [address] ALT [Catalytic activity/Vol] 36 U/L Normal 13-56 [facility] Comment on above: Order Comment: Order Date: 05/23/24 Order Info: 0184-1 - CBCD Performed By: #### L 100.0100 #### [facility] [address] [place], [address] AST [Catalytic activity/Vol] 28 U/L Normal 15-37 [facility] Comment on above: Order Comment: Order Date: 05/23/24 Order Info: 0184-1 - CBCD Performed By: #### L 100.0100 #### [facility] [address] [place], [address] Bilirubin [Mass/Vol] 0.40 mg/dL Normal 0.20-1.00 [facility] Comment on above: Order Comment: Order Date: 05/23/24 Order Info: 0184-1 - CBCD Result Comment: For patients on eltrombopag therapy, use of Dimension Otis TBIL is not recommended. Performed By: #### L 100.0100 #### [facility] [address] [place], [address] Bilirubin.direct [Mass/Vol] 0.19 mg/dL Normal 0.00-0.30 [facility] Comment on above: Order Comment: Order Date: 05/23/24 Order Info: 018- - CBCD Performed By: #### L 100.0100 #### [facility] [address] [place], [address] Globulin (S) [Mass/Vol] 3.3 g/dL Normal 2.2-4.2 [facility] Comment on above: Order Comment: Order Date: 05/23/24 Order Info: 018- - CBCD Performed By: #### L 100.0100 #### [facility] [address] [place], [address] T PROT 7.0 g/dL Normal 6.4-8.2 [facility] Comment on above: Order Comment: Order Date: 05/23/24 Order Info: 018- - CBCD Performed By: #### L 100.0100 #### [facility] [address] [place], [address] Serum Creatinine AND GFRon 0 - Creatinine [Mass/Vol] 0.61 mg/dL Normal 0.55-1.02 [facility] Comment on above: Order Comment: Order Date: 05/23/24 Order Info: 018- - CBCD Result Comment: The validity of the calculated GFR GFRAA in patients over 70 years has not been determined. Clinical correlation is essential. Performed By: #### L 100.0100 #### [facility] [address] [place], [address] EST GFR - AA 136 mL/min Normal >60 [facility] Comment on above: Order Comment: Order Date: 05/23/24 Order Info: 018- - CBCD Result Comment: Afri can Malian GFR Calc Performed By: #### L 100.0100 #### [facility] [address] [place], [address] GFR/1.73 sq M.predicted among non-blacks MDRD (S/P/Bld) [Vol rate/Area] 112 mL/min/{1.73_m2} Normal >60 [facility] Comment on above: Order Comment: Order Date: 05/23/24 Order Info: 0184-1 - CBCD Result Comment: Non- GFR Calc Performed By: #### L 100.0100 #### [facility] [address] [place], [place], [address] T4 Free Directon 01-22-2024 T4 FREE DIRECT 0.72 ng/dL Low 0.76-1.46 [facility] Comment on above: Order Comment: Order Date: 05/23/24 Order Info: 0184-1 - CBCD Performed By: #### L 100.0100 #### [facility] [address] [place], [place], [address] Thyroid Stim Hormone (TSH)on 01-22-2024 TSH 3.27 uIU/mL Normal 0.358-3.74 [facility] Comment on above: Order Comment: Order Date: 05/23/24 Order Info: 0184-1 - CBCD Performed By: #### L 100.0100 #### [facility] [address] [place], [place], [address] Vitamin D,25 Hydroxyon 01-21 Vitamin D 25-OH 48.2 ng/mL Normal [facility] Comment on above: Order Comment: Order Date: 05/23/24 Order Info: 0184-1 - CBCD Result Comment: Kathy min D 25(OH) Status Range Deficiency <20 ng/mL (50nmol/L) Insufficiency 20 - 30 ng/mL (50 - 75 nmol/L) Sufficiency 30 - 100 ng/mL (75 - 250 nmol/L) Toxicity >100 ng/mL (>250 nmol/L) Performed By: #### L 100.0100 #### [facility] [address] [place], [place], [address] Neurology Visit Reporton Neurology Visit Report [facility] [address] [facility], [address] [place] [address] OFFICE VISIT Date of Service: 01/07/24 MR#: [id number] Acct: [id number] Name: TIERRA MALCOLM Rep #: [id number] : 1975 Provider: Dr. 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 Accompanied by: Self Allergies No Known Allergies Allergy (Verified 01/07/24 08:05) [facility] Medical History Non-smoker High cholesterol Heartburn COVID-19 Anemia Rheumatoid arthritis Surgical History S/P cervical spinal fusion History of endometrial ablation h/o finger surgery s/p tonsillectomy S/P tubal ligation S/P Family History Father Colon cancer Son Asthma Mother Hypertension Social History household members: spouse current occupational status: employed 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 She has a history of hyperlipidemia, bronchiectasis and rheumatoid arthritis. She has been experiencing headaches since childhood. Her headaches had generally occurred 1 to 2 days/week. Since 2020, her headaches have increased in severity. Individual headaches last 4 or more hours but generally no more than 1 day each though she has had occasional headaches that have lasted up to 2 days. Her headaches have been localized to the unilateral frontal temporal region (right or left-sided) or occipital head region. She experiences associated photophobia, phonophobia and occasionally nausea. She does not experience associated numbness, weakness or vision change. Emotional stress and certain smells (such as candles) are triggers for her headaches. She is unaware of any other triggers for her headaches. Acetaminophen and lywj-slg-upaaohc ibuprofen have been of benefit for milder headaches. Sumatriptan 50 mg has been of benefit for her headaches. Topiramate caused paresthesias in the feet and was discontinued. Within recent months her headaches have decreased in frequency and now severe headaches occur about 1 day/month. She has milder headaches that occur, as well, however she does not feel the need to take sumatriptan for these headaches. She tried 1 dose of Nurtec ODT and this was not of benefit. She has a history of of neck pain and upper extremity radicular pain and has undergone a C5-6 anterior cervical discectomy and fusion in December 2021 and C6-C7 anterior cervical discectomy and fusion in May 2023 and has had resolution of her radicular pain at her neck pain has diminished. She has joint pains in various locations for which she takes Enbrel. She is to begin meloxicam. Physical Exam: Neuro: The patient is awake and alert and responds appropriately; speech is fluent Heart: Regular rhythm and rate Supplemental Info Cervical spine MRI (11/06/2022): FINDINGS: VERTEBRAE: There is metal artifact anteriorly at C5-6 consistent with prior anterior cervical disc fusion. This metal artifact extends posteriorly particularly on the T2, inversion recovery and gradient echo imaging. VERTEBRAL ALIGNMENT: Normal, including the craniocervical junction and cervicothoracic junction. No spondylolisthesis. There is preservation of the normal cervical lordosis. CERVICAL SPINAL CORD: Unremarkable in signal and morphology. C2/C3: Mild disc desiccation. C3/C4: Moderate disc desiccation, mild disc osteophyte with small central disc herniation. C4/C5: Mild disc desiccation and loss of disc space height, mild bilateral uncovertebral joint disease and facet arthropathy with moderate right and mild left neural foraminal encroachment. C5/C6: Mild recurrent or residual disc osteophyte, mild bilateral neural foraminal encroachment. C6/C7: Moderate disc desiccation, moderate right paracentral disc herniation, mild underlying disc osteophyte, bilateral facet arthropa (more content not included)... Normal [facility] Absolute lymphocyte countOrd ered By: Breezy Alegria on 11-04-2023 Lymphocytes Auto (Unsp spec) [#/Vol] 2.21 10*3/uL 0.83-4.51 [facility] Automated lymphocyte count a s percentage of total leukocytesOrdered By: Breezy Alegria on 11-04-2023 Lymphocytes/100 WBC Auto (Unsp spec) 31.4 % 19-41 [facility] Basophil percentageOrdered B y: Breezy Alegria on 11-04-2023 Basophils/100 WBC (Bld) 1.0 % 0-1 [facility] Eosinophils/100 WBC (Bld) 2.7 % 0-5 [facility] Hemoglobin (Bld) [Mass/Vol] 12.5 g/dL 12.0-15.0 [facility] Monocytes/100 WBC (Bld) 10.0 % 0-10 [facility] Neutrophils (Bld) [#/Vol] 3.8 10*3/uL 2.0-7.7 [facility] Neutrophils/100 WBC (Bld) 54.6 % 47-70 [facility] WBC (Bld) [#/Vol] 7.0 10*3/uL 4.4-11.0 [facility] Determination of erythrocyte mean corpuscular volume (MCV)Ordered By: Breezy Alegria on 11-04-2023 MCV (RBC) [Entitic vol] 93.5 fL 81-99 [facility] Erythrocyte distribution wid th ratioOrdered By: Breezy Alegria on 11-04-2023 Erythrocyte distribution width (RBC) [Ratio] 12.4 % 11.6-14.6 [facility] Erythrocyte distribution wid th standard deviationOrdered By: Berezy Alegria on 11-04-2023 Erythrocyte distribution width (RBC) [Entitic vol] 42.5 fL 35.1-43.9 [facility] Hematocrit Auto (Bld) [Volum e fraction]Ordered By: Breezy Alegria on 11-04-2023 Hematocrit (Bld) [Volume fraction] 37.1 % 37-47 [facility] Immature granulocytes/100 WB C Auto (Bld)Ordered By: Breezy Alegria on 11-04-2023 Immature granulocytes/100 WBC (Bld) 0.300 % 0.0-0.9 [facility] Comment on above: IG% - Immature Granu locytes (promyelocytes, myelocytes and metamyelocytes) > 1% indicates that a LEFT SHIFT is Present. Laboratory - Hematology and Cell countsOrdered By: Breezy Alegria on 11-04-2023 MCH (RBC) [Entitic mass] 31.5 pg 27.0-32.0 [facility] MCHC (RBC) [Mass/Vol] 33.7 g/dL 32-36 [facility] Nucleated RBC/100 WBC (Bld) [Ratio] 0 % 0-5 [facility] Platelet mean volume (Bld) [Entitic vol] 10.5 fL 6.2-12.0 [facility] Platelets (Bld) [#/Vol] 301 10*3/uL 150-450 [facility] No Panel InformationOrdered By: Arlene Mcqueen on 11-04-2023 Estradiol (E2) Level 261.4 pg/mL [facility] Comment on above: NORMAL REFERENCE RAN GES FEMALE FOLLICULAR 21.4 - 164.8 pg/mL MID-CYCLE PEAK 49.9 - 367.2 pg/mL LUTEAL 40.2 - 259.0 pg/mL POST-MENOPAUSAL ON MHT <11.0 - 462.1 pg/mL NOT ON MHT <11.0 - 58.3 pg/mL MALE <11.0 - 52.5 pg/mL NOTE:[employer] HAS CONFIRMED THE DRUG FULVETRANT (FASLODEX) MAY CAUSE FALSELY ELEVATED ESTRADIOL RESULTS WHEN USING THIS TEST METHOD. IF PATIENT IS TAKING FULVESTRANT AN ALTERNATIVE METHOD SHOULD BE USED TO DETERMINE ESTRADIOL CONCENTRATION. Follicle Stimulating Hormone 2.0 mIU/mL [facility] Comment on above: NORMAL REFERENCE RAN GES FEMALE FOLLICULAR 2.3 - 12.6 mIU/mL MID-CYCLE PEAK 5.2 - 17.5 mIU/mL LUTEAL 1.7 - 12.9 mIU/mL POST-MENOPAUSAL ON MHT 5.9 - 72.8 mIU/mL NOT ON MHT 12.7 - 132.2 mlU/mL MALE 0.7 - 10.8 mIU/mL Vitamin D 25-Hydroxy 57.4 ng/mL [facility] Comment on above: Vitamin D 25(OH) Sta tus Range Deficiency <20 ng/mL (50nmol/L) Insufficiency 20 - 30 ng/mL (50 - 75 nmol/L) Sufficiency 30 - 100 ng/mL (75 - 250 nmol/L) Toxicity >100 ng/mL (>250 nmol/L) RBC Auto (Bld) [#/Vol]Ordere d By: Breezy Alegria on 11-04-2023 RBC (Bld) [#/Vol] 3.97 10*6/uL 4.2-5.4 [facility] Serum or plasma thyroid stim ulating hormone (TSH) measurement (units/volume)Ordered By: Arlene Mcqueen on 11-04-2023 TSH Qn 6.78 uIU/mL 0.358-3.74 [facility] Serum or plasma thyroperoxid ase antibody assay (units/volume)Ordered By: Arleneraisa Mcqueen on 11-04-2023 TPO Ab Qn [IU]/mL 0-34 [facility] Comment on above: Performed at: [place] [id number] Director: Jose Miguel Grimm PhD, Phone: [phone] Thin prep Papanicolaou smear with manual screeningOrdered By: Arlene Mcqueen on 11-04-2023 Thin prep Papanicolaou smear with manual screening 0.77 ng/dL 0.76-1.46 [facility] Absolute lymphocyte countOrd ered By: Breezy Alegria on 10-23-2023 Lymphocytes Auto (Unsp spec) [#/Vol] 1.66 10*3/uL 0.83-4.51 [facility] Automated lymphocyte count a s percentage of total leukocytesOrdered By: Breezy Alegria on 10-23-2023 Lymphocytes/100 WBC Auto (Unsp spec) 25.4 % 19-41 [facility] Basophil percentageOrdered B y: Breezy Alegria on 10-23-2023 Basophils/100 WBC (Bld) 0.8 % 0-1 [facility] Bilirubin [Mass/Vol] 0.40 mg/dL 0.20-1.00 [facility] Comment on above: For patients on eltr ombopag therapy, use of Dimension Otis TBIL is not recommended. Chloride [Moles/Vol] 111 mmol/L 98-107 [facility] Cholesterol [Mass/Vol] 164 mg/dL <200 [facility] Comment on above: <200 mg/dL Desirable 200-240 mg/dL Borderline >240 mg/dL High Risk Eosinophils/100 WBC (Bld) 2.1 % 0-5 [facility] Glucose [Mass/Vol] 101 mg/dL 74-106 [facility] Comment on above: Fasting Glucose resu lt from 100 to 125 mg/dL suggests IMPAIRED HOMEOSTASIS per A.D.A. criteria. Hemoglobin (Bld) [Mass/Vol] 12.4 g/dL 12.0-15.0 [facility] Monocytes/100 WBC (Bld) 6.4 % 0-10 [facility] Neutrophils (Bld) [#/Vol] 4.2 10*3/uL 2.0-7.7 [facility] Neutrophils/100 WBC (Bld) 65.0 % 47-70 [facility] Potassium [Moles/Vol] 4.0 mmol/L 3.5-5.1 [facility] Protein [Mass/Vol] 7.2 g/dL 6.4-8.2 [facility] Sodium [Moles/Vol] 140 mmol/L 136-145 [facility] Triglyceride [Mass/Vol] 127 mg/dL <199 [facility] Comment on above: The drugs N-Acetylcy steine and Metamizole may falsely depress this assay.Serum Triglycerides Reference Interval Normal <150 mg/dL Borderline high 150 - 199 mg/dL High 200 - 499 mg/dL Very High > or = 500 mg/dL WBC (Bld) [#/Vol] 6.5 10*3/uL 4.4-11.0 [facility] Determination of erythrocyte mean corpuscular volume (MCV)Ordered By: Breezy Alegria on 04-12-2024 MCV (RBC) [Entitic vol] 94.9 fL 81-99 [facility] Erythrocyte distribution wid th ratioOrdered By: Breezy Alegria on 10-23-2023 Erythrocyte distribution width (RBC) [Ratio] 12.7 % 11.6-14.6 [facility] Erythrocyte distribution wid th standard deviationOrdered By: Breezy Alegria on 10-23-2023 Erythrocyte distribution width (RBC) [Entitic vol] 44.7 fL 35.1-43.9 [facility] Hematocrit Auto (Bld) [Volum e fraction]Ordered By: Breezy Alegria on 10-23-2023 Hematocrit (Bld) [Volume fraction] 37.3 % 37-47 [facility] Immature granulocytes/100 WB C Auto (Bld)Ordered By: Breezy Alegria on 10-23-2023 Immature granulocytes/100 WBC (Bld) 0.300 % 0.0-0.9 [facility] Comment on above: IG% - Immature Granu locytes (promyelocytes, myelocytes and metamyelocytes) > 1% indicates that a LEFT SHIFT is Present. Laboratory - Chemistry and C hemistry - challengeOrdered By: Breezy Alegria on 10-23-2023 Albumin/Globulin [Mass ratio] 1.2 {ratio} 0.9-2.4 [facility] ALP [Catalytic activity/Vol] 63 U/L 45-117 [facility] ALT [Catalytic activity/Vol] 36 U/L 13-56 [facility] Cholesterol in HDL [Mass/Vol] 58 mg/dL >40 [facility] Comment on above: The drugs N-Acetylcy steine and Metamizole may falsely depress this assay. Reference Range HDL <40 mg/dL Low HDL Cholesterol HDL >or= 60 mg/dL High HDL Cholesterol Cholesterol in LDL [Mass/Vol] 81 mg/dL 0-130 [facility] CO2 [Moles/Vol] 27.0 mmol/L 21.0-32.0 [facility] Globulin (S) [Mass/Vol] 3.2 g/dL 2.2-4.2 [facility] Urea nitrogen/Creatinine [Mass ratio] 22.3 mg/mg 10-20 [facility] - Hematology and Cell countsOrdered By: Breezy Alegria on 10-23-2023 MCH (RBC) [Entitic mass] 31.6 pg 27.0-32.0 [facility] MCHC (RBC) [Mass/Vol] 33.2 g/dL 32-36 [facility] Nucleated RBC/100 WBC (Bld) [Ratio] 0 % 0-5 [facility] Platelet mean volume (Bld) [Entitic vol] 10.5 fL 6.2-12.0 [facility] Platelets (Bld) [#/Vol] 314 10*3/uL 150-450 [facility] No Panel InformationOrdered By: Breezy Alegria on 10-23-2023 Estimated GFR (MDRD) Amer 105 mL/min >60 [facility] Comment on above: GFR Calc Estimated GFR (MDRD) Non-Af Amer 86 mL/min >60 [facility] Comment on above: Non- GFR Calc Vitamin D 25-Hydroxy 54.0 ng/mL [facility] Comment on above: Vitamin D 25(OH) Sta tus Range Deficiency <20 ng/mL (50nmol/L) Insufficiency 20 - 30 ng/mL (50 - 75 nmol/L) Sufficiency 30 - 100 ng/mL (75 - 250 nmol/L) Toxicity >100 ng/mL (>250 nmol/L) VLDL Cholesterol 25 mg/dL 5-40 [facility] RBC Auto (Bld) [#/Vol]Ordere d By: Breezy Alegria on 10-23-2023 RBC (Bld) [#/Vol] 3.93 10*6/uL 4.2-5.4 [facility] Serum or plasma calcium new urement (mass/volume)Ordered By: Breezy Alegria on 10-23-2023 Calcium [Mass/Vol] 9.3 mg/dL 8.5-10.1 [facility] Serum or plasma creatinine m easurement (mass/volume)Ordered By: Breezy Alegria on 10-23-2023 Creatinine [Mass/Vol] 0.76 mg/dL 0.55-1.02 [facility] Comment on above: The validity of the calculated GFR & GFRAA in patients over 70 years has not been determined. Clinical correlation is essential. Serum or plasma urea nitroge n measurement (mass/volume)Ordered By: Breezy Alegria on 10-23-2023 Urea nitrogen [Mass/Vol] 17 mg/dL 7-18 [facility] Thin prep Papanicolaou smear with manual screeningOrdered By: Breezy Alegria on 10-23-2023 Thin prep Papanicolaou smear with manual screening 4.0 g/dL 3.2-5.0 [facility] Thin prep Papanicolaou smear with manual screening 25 U/L 15-37 [facility] Thin prep Papanicolaou smear with manual screening 2 5-15 [facility] Cervical or vaginal specimen microscopic examination by liquid based cytology (reportOrdered By: Arlene Mcqueen on 09-02-2023 Cytology report Cyto stain.thin prep Doc (Cvx/Vag) Comment . [facility] Comment on above: Criteria not met, HP V Genotype not performed.Performed at: [address] [id number] Director: Mary Ann Rashid MD, Phone: [phone] at: =[facility] [id number] Director: Mary Ann Rashid MD, Phone: [phone] Cervical or vagninal specime n microscopic examination by cytology stain (reported asOrdered By: Arlene Mcqueen on 09-02-2023 Cytology report Cyto stain Doc (Cvx/Vag) Comment . [facility] Comment on above: The Pap smear is a s creening test designed to aid in thedetection of premalignant and malignant conditions of theuterine cervix. It is not a diagnostic procedure andshould not be used as the sole means of detecting cervicalcancer. Both false-positive and false-negative reports dooccur. Detection in cervical specim en of any of human papilloma virus (HPV) 16, 18, 31, 33,Ordered By: Arlene Mcqueen on 09-02-2023 HPV 16+18+31+33+35+39+45+51 +52+56+58+59+66+68 DNA Probe+sig amp Ql (Cvx) Negative Negative [facility] Comment on above: This nucleic acid am plification test detects fourteen high-risk HPV types (16,18,31,33,35,39,45,51,52,56,58,59,66,68)without differentiation. Laboratory - CytologyOrdered By: Arlene Mcqueen on 09-02-2023 Art Psychotherapist Cyto stain Nom (Cvx/Vag) [ID] Comment . [facility] Comment on above: Neelam Cárdenas Cyto technologist Laboratory - Miscellaneous t estsOrdered By: Arlene Mcqueen on 09-02-2023 Service comment (Unsp spec) [Interp] . . [facility] Thin prep Papanicolaou smear with manual screeningOrdered By: Arlene Mcqueen on 09-02-2023 Thin prep Papanicolaou smear with manual screening Comment . [facility] Comment on above: NEGATIVE FOR INTRAEP ITHELIAL LESION OR MALIGNANCY.CELLULAR CHANGES ASSOCIATED WITH INFLAMMATION ARE PRESENT.THIS SPECIMEN WAS RESCREENED PART OF [employer] TECHNICIAN PROGRAM. This liquid based Th inPrep(R) pap test was screened withthe use of an image guided system. Basophil percentageOrdered B y: John Ennis on 06-10-2023 Chloride [Moles/Vol] 108 mmol/L 98-107 [facility] Glucose [Mass/Vol] 158 mg/dL 74-106 [facility] Comment on above: Fasting Glucose resu lt greater than or equal to 126 mg/dL suggests DIABETES MELLITUS per A.D.A. criteria. Potassium [Moles/Vol] 3.8 mmol/L 3.5-5.1 [facility] Sodium [Moles/Vol] 138 mmol/L 136-145 [facility] WBC (Bld) [#/Vol] 11.6 10*3/uL 4.4-11.0 [facility] Blood erythrocytes count (nu mber/volume)Ordered By: John Ennis on 06-10-2023 RBC (Bld) [#/Vol] 3.55 10*6/uL 4.2-5.4 [facility] Blood hemoglobin measurement (mass/volume)Ordered By: John Ennis on 06-10-2023 Hemoglobin (Bld) [Mass/Vol] 11.4 g/dL 12.0-15.0 [facility] Blood platelet mean volumeOr dered By: John Ennis on 06-10-2023 Platelet mean volume (Bld) [Entitic vol] 9.9 fL 6.2-12.0 [facility] Determination of erythrocyte mean corpuscular volume (MCV)Ordered By: John Ennis on 06-10-2023 MCV (RBC) [Entitic vol] 96.1 fL 81-99 [facility] Hematocrit Auto (Bld) [Volum e fraction]Ordered By: John Ennis on 06-10-2023 Hematocrit (Bld) [Volume fraction] 34.1 % 37-47 [facility] - Chemistry and C hemistry - challengeOrdered By: John Ennis on 06-10-2023 CO2 [Moles/Vol] 24.0 mmol/L 21.0-32.0 [facility] Urea nitrogen/Creatinine [Mass ratio] 7.7 mg/mg 10-20 [facility] - Hematology and Cell countsOrdered By: John Ennis on 06-10-2023 Erythrocyte distribution width (RBC) [Entitic vol] 48.7 fL 35.1-43.9 [facility] Erythrocyte distribution width (RBC) [Ratio] 13.7 % 11.6-14.6 [facility] MCH (RBC) [Entitic mass] 32.1 pg 27.0-32.0 [facility] MCHC Auto (RBC) [Mass/Vol]Or dered By: John Ennis on 06-10-2023 MCHC (RBC) [Mass/Vol] 33.4 g/dL 32-36 [facility] No Panel InformationOrdered By: John Ennis on 06-10-2023 Estimated Creatinine Clearance Calc 63.92 ml/min [facility] Estimated GFR (MDRD) Amer 86 mL/min >60 [facility] Comment on above: GFR Calc Estimated GFR (MDRD) Non-Af Amer 71 mL/min >60 [facility] Comment on above: Non- GFR Calc Platelets bldOrdered By: Antonia Ennis on 06-10-2023 Platelets (Bld) [#/Vol] 316 10*3/uL 150-450 [facility] Serum or plasma calcium new urement (mass/volume)Ordered By: John Ennis on 06-10-2023 Calcium [Mass/Vol] 8.5 mg/dL 8.5-10.1 [facility] Serum or plasma creatinine m easurement (mass/volume)Ordered By: John Ennis on 06-10-2023 Creatinine [Mass/Vol] 0.90 mg/dL 0.55-1.02 [facility] Comment on above: The validity of the calculated GFR & GFRAA in patients over 70 years has not been determined. Clinical correlation is essential. Serum or plasma urea nitroge n measurement (mass/volume)Ordered By: John Ennis on 06-10-2023 Urea nitrogen [Mass/Vol] 7 mg/dL 7-18 [facility] Thin prep Papanicolaou smear with manual screeningOrdered By: John Ennis on 06-10-2023 Thin prep Papanicolaou smear with manual screening 6 5-15 [facility] Glucose Glucometer (BldC) [M ass/Vol]Ordered By: Gerardo Guthrie on 06-09-2023 Glucose [Mass/Vol] 87 mg/dL 74-106 [facility] Comment on above: MANAGEMENT OF PATIEN T CARE PER NURSING PROTOCOL Absolute lymphocyte countOrd ered By: Gerardo Guthrie on 05-29-2023 Lymphocytes Auto (Unsp spec) [#/Vol] 1.61 10*3/uL 0.83-4.51 [facility] Basophil percentageOrdered B y: Gerardo Guthrie on 05-29-2023 Basophils/100 WBC (Bld) 0.5 % 0-1 [facility] Eosinophils/100 WBC (Bld) 3.6 % 0-5 [facility] Neutrophils (Bld) [#/Vol] 3.3 10*3/uL 2.0-7.7 [facility] Neutrophils/100 WBC (Bld) 59.2 % 47-70 [facility] Blood lymphocytes/100 leukoc ytesOrdered By: Gerardo Guthrie on 05-29-2023 Lymphocytes/100 WBC (Bld) 28.7 % 19-41 [facility] Blood monocytes/100 leukocyt esOrdered By: Gerardo Guthrie on 05-29-2023 Monocytes/100 WBC (Bld) 7.8 % 0-10 [facility] HIV 1 and HIV-2 antibody ass ay with HIV-1 p24 antigen detectionOrdered By: Gerardo Guthrie on 05-29-2023 HIV 1+2 Ab+HIV1 p24 Ag IA Ql Non-Reactive Nonreactive [facility] - Chemistry and C hemistry - challengeOrdered By: Gerardo Guthrie on 05-29-2023 Magnesium [Mass/Vol] 2.2 mg/dL 1.6-2.6 [facility] - Hematology and Cell countsOrdered By: Gerardo Guthrie on 05-29-2023 Immature granulocytes/100 WBC (Bld) 0.200 % 0.0-0.9 [facility] Comment on above: IG% - Immature Granu locytes (promyelocytes, myelocytes and metamyelocytes) > 1% indicates that a LEFT SHIFT is Present. Nucleated RBC/100 WBC (Bld) [Ratio] 0 % 0-5 [facility] No Panel InformationOrdered By: Gerardo Guthrie on 05-29-2023 Hepatitis A Antibody Total Positive Negative [facility] Comment on above: Comment: The HAV tot al antibody assay detects both IgG andIgM but does not differentiate between them. A negativeresult suggests susceptibility to infection. A positiveresult could be due to vaccination, previously resolvedinfection or active infection. Testing for HAV IgM shouldbe performed if active HAV infection is suspected. [facility] profiles that will automatically reflex positive HAVtotal antibody results to IgM (e.g., panel #[id number] HAVAntibody w/ Rfx).Performed at: [address] [id number] Director: Jose Miguel Grimm PhD, Phone: [phone] Hepatitis C Antibody Non-Reactive Nonreactive [facility] Comment on above: Non Reactive: < 0.8 Equivocal: >/= 0.8 to < 1.0 Reactive: >/= 1.0The CDC recommends that a reactive/equivocal HCV antibody result be followed up by the HCV Nucleic Acid Amplificationtest (244868) Nasal Screen MRSA/MSSA [facility] Serum hepatitis B virus surf peri antibody IgG detectionOrdered By: Gerardo Guthrie on 05-29-2023 HBV surface IgG Ql (S) Reactive [facility] Comment on above: Non Reactive: Incons istent with immunity less than <10 mIU/mL Reactive: Consistent with immunity greater than or equal to 10 mIU/mL Basophil percentageOrdered B y: Breezy Alegria on 01-23-2023 Chloride [Moles/Vol] 106 mmol/L 98-107 [facility] Cholesterol [Mass/Vol] 145 mg/dL <200 [facility] Comment on above: <200 mg/dL Desirable 200-240 mg/dL Borderline >240 mg/dL High Risk Glucose [Mass/Vol] 103 mg/dL 74-106 [facility] Comment on above: Fasting Glucose resu lt from 100 to 125 mg/dL suggests IMPAIRED HOMEOSTASIS per A.D.A. criteria. Potassium [Moles/Vol] 4.2 mmol/L 3.5-5.1 [facility] Sodium [Moles/Vol] 138 mmol/L 136-145 [facility] Triglyceride [Mass/Vol] 264 mg/dL <199 [facility] Comment on above: The drugs N-Acetylcy steine and Metamizole may falsely depress this assay.Serum Triglycerides Reference Interval Normal <150 mg/dL Borderline high 150 - 199 mg/dL High 200 - 499 mg/dL Very High > or = 500 mg/dL Direct bilirubinOrdered By: Breezy Alegria on 01-23-2023 Bilirubin.direct [Mass/Vol] 0.17 mg/dL 0.00-0.30 [facility] Laboratory - Chemistry and C hemistry - challengeOrdered By: Breezy Alegria on 01-23-2023 CO2 [Moles/Vol] 24.0 mmol/L 21.0-32.0 [facility] Urea nitrogen/Creatinine [Mass ratio] 18.2 mg/mg 10-20 [facility] No Panel InformationOrdered By: Breezy Alegria on 01-23-2023 Estimated GFR (MDRD) Amer 124 mL/min >60 [facility] Comment on above: GFR Calc Estimated GFR (MDRD) Non-Af Amer 102 mL/min >60 [facility] Comment on above: Non- GFR Calc Vitamin D 25-Hydroxy 45.9 ng/mL [facility] Comment on above: Vitamin D 25(OH) Sta tus Range Deficiency <20 ng/mL (50nmol/L) Insufficiency 20 - 30 ng/mL (50 - 75 nmol/L) Sufficiency 30 - 100 ng/mL (75 - 250 nmol/L) Toxicity >100 ng/mL (>250 nmol/L) Serum or plasma calcium new urement (mass/volume)Ordered By: Breezy Alegria on 01-23-2023 Calcium [Mass/Vol] 8.7 mg/dL 8.5-10.1 [facility] Serum or plasma cholesterol in HDL measurement (mass/volume)Ordered By: Breezy Alegria on 01-23-2023 Cholesterol in HDL [Mass/Vol] 34 mg/dL >40 [facility] Comment on above: The drugs N-Acetylcy steine and Metamizole may falsely depress this assay. Reference Range HDL <40 mg/dL Low HDL Cholesterol HDL >or= 60 mg/dL High HDL Cholesterol Serum or plasma cholesterol in VLDL measurement (mass/volume)Ordered By: Breezy Alegria on 01-23-2023 Cholesterol in VLDL [Mass/Vol] 53 mg/dL 5-40 [facility] Serum or plasma creatinine m easurement (mass/volume)Ordered By: Breezy Alegria on 01-23-2023 Creatinine [Mass/Vol] 0.66 mg/dL 0.55-1.02 [facility] Comment on above: The validity of the calculated GFR & GFRAA in patients over 70 years has not been determined. Clinical correlation is essential. Serum or plasma low density lipoprotein (LDL) cholesterol measurement (mass/volume)Ordered By: Breezy Alegria on 01-23-2023 Cholesterol in LDL [Mass/Vol] 58 mg/dL 0-130 [facility] Serum or plasma urea nitroge n measurement (mass/volume)Ordered By: Breezy Alegria on 01-23-2023 Urea nitrogen [Mass/Vol] 12 mg/dL 7-18 [facility] Thin prep Papanicolaou smear with manual screeningOrdered By: Breezy Alegria on 01-23-2023 Thin prep Papanicolaou smear with manual screening 8 5-15 [facility] Absolute lymphocyte countOrd ered By: EMANUEL IVAN on 01-21-2023 Lymphocytes Auto (Unsp spec) [#/Vol] 0.98 10*3/uL 0.83-4.51 [facility] Basophil percentageOrdered B y: EMANUEL IVAN on 01-21-2023 Basophils/100 WBC (Bld) 1.0 % 0-1 [facility] Bilirubin [Mass/Vol] 0.60 mg/dL 0.20-1.00 [facility] Comment on above: For patients on eltr ombopag therapy, use of Dimension Otis TBIL is not recommended. Eosinophils/100 WBC (Bld) 2.3 % 0-5 [facility] Neutrophils (Bld) [#/Vol] 1.4 10*3/uL 2.0-7.7 [facility] Neutrophils/100 WBC (Bld) 47.1 % 47-70 [facility] Protein [Mass/Vol] 6.7 g/dL 6.4-8.2 [facility] WBC (Bld) [#/Vol] 3.0 10*3/uL 4.4-11.0 [facility] Blood erythrocytes count (nu mber/volume)Ordered By: EMANUEL IVAN on 01-21-2023 RBC (Bld) [#/Vol] 3.70 10*6/uL 4.2-5.4 [facility] Blood hemoglobin measurement (mass/volume)Ordered By: EMANUEL IVAN on 01-21-2023 Hemoglobin (Bld) [Mass/Vol] 11.8 g/dL 12.0-15.0 [facility] Blood lymphocytes/100 leukoc ytesOrdered By: EMANUEL IVAN on 01-21-2023 Lymphocytes/100 WBC (Bld) 32.9 % 19-41 [facility] Blood monocytes/100 leukocyt esOrdered By: EMANUEL IVAN on 01-21-2023 Monocytes/100 WBC (Bld) 16.4 % 0-10 [facility] Blood platelet mean volumeOr dered By: EMANUEL IVAN on 01-21-2023 Platelet mean volume (Bld) [Entitic vol] 10.6 fL 6.2-12.0 [facility] Determination of erythrocyte mean corpuscular volume (MCV)Ordered By: EMANUEL IVAN on 01-21-2023 MCV (RBC) [Entitic vol] 94.9 fL 81-99 [facility] Direct bilirubinOrdered By: EMANUEL IVAN on 01-21-2023 Bilirubin.direct [Mass/Vol] 0.16 mg/dL 0.00-0.30 [facility] Hematocrit Auto (Bld) [Volum e fraction]Ordered By: EMANUEL IVAN on 01-21-2023 Hematocrit (Bld) [Volume fraction] 35.1 % 37-47 [facility] Laboratory - Chemistry and C hemistry - challengeOrdered By: EMANUEL IVAN on 01-21-2023 ALP [Catalytic activity/Vol] 171 U/L 45-117 [facility] ALT [Catalytic activity/Vol] 116 U/L 13-56 [facility] Globulin (S) [Mass/Vol] 2.9 g/dL 2.2-4.2 [facility] Laboratory - Hematology and Cell countsOrdered By: EMANUEL IVAN on 01-21-2023 Erythrocyte distribution width (RBC) [Entitic vol] 46.2 fL 35.1-43.9 [facility] Erythrocyte distribution width (RBC) [Ratio] 13.3 % 11.6-14.6 [facility] Immature granulocytes/100 WBC (Bld) 0.300 % 0.0-0.9 [facility] Comment on above: IG% - Immature Granu locytes (promyelocytes, myelocytes and metamyelocytes) > 1% indicates that a LEFT SHIFT is Present. MCH (RBC) [Entitic mass] 31.9 pg 27.0-32.0 [facility] Nucleated RBC/100 WBC (Bld) [Ratio] 0 % 0-5 [facility] MCHC Auto (RBC) [Mass/Vol]Or dered By: EMANUEL IVAN on 01-21-2023 MCHC (RBC) [Mass/Vol] 33.6 g/dL 32-36 [facility] Platelets bldOrdered By: HARRIET IVAN on 01-21-2023 Platelets (Bld) [#/Vol] 147 10*3/uL 150-450 [facility] Serum or plasma albumin new urement (mass/volume)Ordered By: EMANUEL IVAN on 01-21-2023 Albumin [Mass/Vol] 3.8 g/dL 3.2-5.0 [facility] Thin prep Papanicolaou smear with manual screeningOrdered By: EMANUEL IVAN on 01-21-2023 Thin prep Papanicolaou smear with manual screening 92 U/L 15-37 [facility] Cervical or vagninal specime n microscopic examination by cytology stain (reported ason 06-03-2022 Cytology report Cyto stain Doc (Cvx/Vag) Comment . [facility] Work Phone: Comment on above: The Pap smear is a s creening test designed to aid in thedetection of premalignant and malignant conditions of theuterine cervix. It is not a diagnostic procedure andshould not be used as the sole means of detecting cervicalcancer. Both false-positive and false-negative reports dooccur. Detection in cervical specim en of any of human papilloma virus (HPV) 16, 18, 31, 33,on 06-03-2022 HPV 16+18+31+33+35+39+45+51 +52+56+58+59+66+68 DNA Probe+sig amp Ql (Cvx) TNP [facility] Work Phone: Comment on above: Test not performedTe st not performed. Liquid based PAP vial containedinsufficient specimen for molecular testing; likely aconsequence of insufficient cellularity in originalcollection.This nucleic acid amplification test detects fourteen high-risk HPV types (16,18,31,33,35,39,45,51,52,56,58,59,66,68)without differentiation. Laboratory - Cytologyon 05-14 Art Psychotherapist Cyto stain Nom (Cvx/Vag) [ID] Comment . [facility] Work Phone: Comment on above: Virginie Hernandez [employer] hnologist (ASCP) Laboratory - Miscellaneous t estson 06-03-2022 Service comment (Unsp spec) [Interp] Comment . [facility] Work Phone: Comment on above: This liquid based Th inPrep(R) pap test was screened withthe use of an image guided system. Service comment (Unsp spec) [Interp] . . [facility] Work Phone: Liquid-based cerv Pap + CT/G C by FRANCES w reflex to high-risk HPV for ASCUSon 06-03-2022 Cytology report Cyto stain.thin prep Doc (Cvx/Vag) Comment . [facility] Work Phone: Comment on above: Criteria not met, HP V Genotype not performed. No Panel Informationon 06-03 Pathology report final diagnosis Narrative Comment . [facility] Work Phone: Comment on above: NEGATIVE FOR INTRAEP ITHELIAL LESION OR MALIGNANCY. Absolute lymphocyte counton 05-27-2022 Lymphocytes Auto (Unsp spec) [#/Vol] 1.55 10*3/uL 0.83-4.51 [facility] Work Phone: Basophil percentageon 2021 Basophils/100 WBC (Bld) 0.8 % 0-1 [facility] Work Phone: Bilirubin [Mass/Vol] 0.50 mg/dL 0.20-1.00 [facility] Work Phone: Comment on above: For patients on eltr ombopag therapy, use of Dimension Otis TBIL is not recommended. Chloride [Moles/Vol] 107 mmol/L 98-107 [facility] Work Phone: Cholesterol [Mass/Vol] 139 mg/dL <200 [facility] Work Phone: Comment on above: <200 mg/dL Desirable 200-240 mg/dL Borderline >240 mg/dL High Risk Eosinophils/100 WBC (Bld) 5.0 % 0-5 [facility] Work Phone: Glucose [Mass/Vol] 92 mg/dL 74-106 [facility] Work Phone: Neutrophils (Bld) [#/Vol] 2.9 10*3/uL 2.0-7.7 [facility] Work Phone: Neutrophils/100 WBC (Bld) 55.5 % 47-70 [facility] Work Phone: Potassium [Moles/Vol] 4.4 mmol/L 3.5-5.1 [facility] Work Phone: Protein [Mass/Vol] 6.9 g/dL 6.4-8.2 [facility] Work Phone: Sodium [Moles/Vol] 139 mmol/L 136-145 [facility] Work Phone: Triglyceride [Mass/Vol] 120 mg/dL <199 [facility] Work Phone: Comment on above: The drugs N-Acetylcy steine and Metamizole may falsely depress this assay.Serum Triglycerides Reference Interval Normal <150 mg/dL Borderline high 150 - 199 mg/dL High 200 - 499 mg/dL Very High > or = 500 mg/dL WBC (Bld) [#/Vol] 5.2 10*3/uL 4.4-11.0 [facility] Work Phone: Blood erythrocytes count (nu mber/volume)on 05-27-2022 RBC (Bld) [#/Vol] 3.97 10*6/uL 4.2-5.4 [facility] Work Phone: Blood hemoglobin measurement (mass/volume)on 05-27-2022 Hemoglobin (Bld) [Mass/Vol] 12.2 g/dL 12.0-15.0 [facility] Work Phone: Blood lymphocytes/100 leukoc yteson 05-27-2022 Lymphocytes/100 WBC (Bld) 30.0 % 19-41 [facility] Work Phone: Blood monocytes/100 leukocyt eson 05-27-2022 Monocytes/100 WBC (Bld) 8.3 % 0-10 [facility] Work Phone: Blood platelet mean volumeon 05-27-2022 Platelet mean volume (Bld) [Entitic vol] 10.4 fL 6.2-12.0 [facility] Work Phone: Determination of erythrocyte mean corpuscular volume (MCV)on 05-27-2022 MCV (RBC) [Entitic vol] 94.5 fL 81-99 [facility] Work Phone: Hematocrit Auto (Bld) [Volum e fraction]on 05-27-2022 Hematocrit (Bld) [Volume fraction] 37.5 % 37-47 [facility] Work Phone: Laboratory - Chemistry and C hemistry - challengeon 05-27-2022 ALP [Catalytic activity/Vol] 69 U/L 45-117 [facility] Work Phone: ALT [Catalytic activity/Vol] 18 U/L 13-56 [facility] Work Phone: CO2 [Moles/Vol] 26.0 mmol/L 21.0-32.0 [facility] Work Phone: Globulin (S) [Mass/Vol] 3.3 g/dL 2.2-4.2 [facility] Work Phone: Urea nitrogen/Creatinine [Mass ratio] 23.0 mg/mg 10-20 [facility] Work Phone: Laboratory - Hematology and Cell countson 05-27-2022 Erythrocyte distribution width (RBC) [Entitic vol] 45.6 fL 35.1-43.9 [facility] Work Phone: Erythrocyte distribution width (RBC) [Ratio] 13.2 % 11.6-14.6 [facility] Work Phone: Immature granulocytes/100 WBC (Bld) 0.400 % 0.0-0.9 [facility] Work Phone: Comment on above: IG% - Immature Granu locytes (promyelocytes, myelocytes and metamyelocytes) > 1% indicates that a LEFT SHIFT is Present. MCH (RBC) [Entitic mass] 30.7 pg 27.0-32.0 [facility] Work Phone: Nucleated RBC/100 WBC (Bld) [Ratio] 0 % 0-5 [facility] Work Phone: MCHC Auto (RBC) [Mass/Vol]on 05-27-2022 MCHC (RBC) [Mass/Vol] 32.5 g/dL 32-36 [facility] Work Phone: No Panel Informationon 05-27 Estimated GFR (MDRD) Amer 116 mL/min >60 [facility] Work Phone: Comment on above: GFR Calc Estimated GFR (MDRD) Non-Af Amer 96 mL/min >60 [facility] Work Phone: Comment on above: Non- GFR Calc Vitamin D 25-Hydroxy 46.4 ng/mL [facility] Work Phone: Comment on above: Vitamin D 25(OH) Sta tus Range Deficiency <20 ng/mL (50nmol/L) Insufficiency 20 - 30 ng/mL (50 - 75 nmol/L) Sufficiency 30 - 100 ng/mL (75 - 250 nmol/L) Toxicity >100 ng/mL (>250 nmol/L) Platelets bldon 05-27-2022 Platelets (Bld) [#/Vol] 287 10*3/uL 150-450 [facility] Work Phone: Serum or plasma albumin new urement (mass/volume)on 05-27-2022 Albumin [Mass/Vol] 3.6 g/dL 3.2-5.0 [facility] Work Phone: Serum or plasma albumin/glob ulin mass ratioon 05-27-2022 Albumin/Globulin [Mass ratio] 1.1 {ratio} 0.9-2.4 [facility] Work Phone: Serum or plasma calcium new urement (mass/volume)on 05-27-2022 Calcium [Mass/Vol] 8.5 mg/dL 8.5-10.1 [facility] Work Phone: Serum or plasma cholesterol in HDL measurement (mass/volume)on 05-27-2022 Cholesterol in HDL [Mass/Vol] 60 mg/dL >40 [facility] Work Phone: Comment on above: The drugs N-Acetylcy steine and Metamizole may falsely depress this assay. Reference Range HDL <40 mg/dL Low HDL Cholesterol HDL >or= 60 mg/dL High HDL Cholesterol Serum or plasma cholesterol in VLDL measurement (mass/volume)on 05-27-2022 Cholesterol in VLDL [Mass/Vol] 24 mg/dL 5-40 [facility] Work Phone: Serum or plasma creatinine m easurement (mass/volume)on 05-27-2022 Creatinine [Mass/Vol] 0.70 mg/dL 0.55-1.02 [facility] Work Phone: Comment on above: The validity of the calculated GFR & GFRAA in patients over 70 years has not been determined. Clinical correlation is essential. Serum or plasma low density lipoprotein (LDL) cholesterol measurement (mass/volume)on 05-27-2022 Cholesterol in LDL [Mass/Vol] 55 mg/dL 0-130 [facility] Work Phone: Serum or plasma urea nitroge n measurement (mass/volume)on 05-27-2022 Urea nitrogen [Mass/Vol] 16 mg/dL 7-18 [facility] Work Phone: Thin prep Papanicolaou smear with manual screeningon 05-27-2022 Thin prep Papanicolaou smear with manual screening 13 U/L 15-37 [facility] Work Phone: Thin prep Papanicolaou smear with manual screening 6 5-15 [facility] Work Phone: ANES POSTPROC EVALon 022 ANES POSTPROC EVAL HNO ID: [id number] Author: Juanjose Gambino DO Service: ? 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 Post Anesthesia Patient Status Neurological Status: aware and responsive. Pulmonary Status: breathing comfortably on room air Airway Control: returned to baseline unsupported. Cardiovascular Status: stable. Pain Management: clinically adequate Postoperative Hydration: acceptable. Intraoperative Events: no significant anesthesia events Post Operative Nausea/Vomiting Status: no significant post operative nausea or vomiting Anesthetic Observations: Recommendation: continue current plan of care. Anesthesia Observations No Documentation SIGNATURE: Juanjose Gambino DO PATIENT NAME: Tierra Malcolm DATE: May 01, 2022 TIME: 6:20 PM CSN: [id number] [facility] ANES PRE-OPon 05-01-2022 ANES PRE-OP HNO ID: [id number] Author: Freedom Green DO Service: Anesthesiology Author Type: Physician Type: Anesthesia Preprocedure Evaluation Filed: 05/01/2022 2:25 PM Note Text: ANESTHESIOLOGY DAY OF SURGERY NOTE : 1975 Procedure Information Date/Time: 05/01/221514 Procedure: EXCISION OF NEUROMA DIGITAL NERVE Location: MR OR 10 / MR OR Surgeons: Michael Zafar DPM Estimated body mass index is 29.28 kg/m? as calculated from the following: Height as of this encounter: 160 cm (5' 3). Weight as of this encounter: 75 kg (165 lb 4.8 oz). Most recent hematocrit and potassium results: Hematocrit 35.1 08/10/2020 Potassium 4.2 08/10/2020 Relevant Problems No relevant active problems I - PHYSICAL EVALUATION AIRWAY Patient intubated: No. Tracheostomy tube not present Mallampati: II. TM distance: >3 FB. Neck ROM: full ROM without neurological symptoms. Mouth opening: adequate. Short neck: no. Thick neck: no DENTAL Dental findings: teeth intact. Additional exam findings: yes. CARDIOVASCULAR Normal cardiovascular observations. PULMONARY Normal pulmonary observations. ABDOMINAL Normal abdominal observations. Other findings: A/ox3. II - ANESTHESIA PLAN ASA Score: 2 Anesthetic Plan: general Airway type: LMA The patient is not a current smoker. NPO Status: adequate Monitoring plan: standard ASA. Postoperative analgesic plan: parenteral or oral opioids, multimodal analgesia and per surgical service. Informed Consent Anesthetic risks, benefits, alternatives, personnel and consent discussed: yes. Patient / Responsible Constitution Party agrees to proceed: yes Patient / Surrogate agrees to blood products: blood products not planned Significant changes in the patient condition since the History and Physical, not otherwise documented in primary service progress note: no. Potential Anesthesia issues that may suggest increased risk of complications or contraindication to planned procedure: none. Vitals Value Taken Time BP 133/74 05/01/22 1344 Pulse 81 05/01/22 1344 Resp 18 05/01/22 1344 Temp 36.7 ?C (98.1 ?F) 05/01/22 1344 SpO2 100 % 05/01/22 1344 Facility-Administered Medications as of 05/01/2022 Medication Dose Route Frequency - lactated ringers iv infusion 30 mL/hr INTRAVENOUS CONTINUOUS - lidocaine 10 mg/mL (1 %) 1-2 mg injection (XYLOCAINE) 0.1-0.2 mL INTRADERMAL ONCE - ceFAZolin iv piggyback 2 g in D5W (iso-osmotic) 100 mL (ANCEF) 2 g INTRAVENOUS ONCE Outpatient Medications as of 05/01/2022 Medication Sig - naproxen sodium (ALEVE ORAL) Take 220 mg by mouth every 12 hours as needed. - Ibuprofen 200 mg cap Take 400 mg by mouth every 6 hours as needed. - acetaminophen (TYLENOL) 325 mg tablet Take 650 mg by mouth every 6 hours as needed. - hydroxychloroquine sulfate (PLAQUENIL ORAL) Take 187.5 mg by mouth every morning. - ORENCIA CLICKJECT 125 mg/mL Inject 125 mg subcutaneously one time a week. Takes on Fridays - rosuvastatin (CRESTOR) 10 mg tablet Take 10 mg by mouth every evening. - Zinc 50 mg tab Take 50 mg by mouth every morning. - VITAMIN A ORAL Take 2,400 mcg by mouth every morning. - ascorbic acid (VITAMIN C ORAL) Take 500 mg by mouth every morning. - cholecalciferol, vitamin D3, (VITAMIN D3 ORAL) Take 5,000 Units by mouth every morning. I have interviewed and examined the patient. I have reviewed the medical record and/or the pre-anesthesia evaluation, pertinent labs, and test results. This contains updated information obtained within 48 hours of Surgery/Procedure. SIGNATURE: Freedom Green DO PATIENT NAME: Tierra Malcolm DATE: May 01, 2022 TIME: 2:24 PM CSN: [id number] [facility] HCG ( test) Ql (U)o n 05-01-2022 Specific gravity (U) [Rel density] 1.005 Normal 1.005-1.030 [facility] Comment on above: Order Comment: Speci men Type: URINE SPECIMEN Ordering Facility: [facility] Address: [address] [place] [address] Performed By: #### 2 106-3 #### [facility] CLIA [id number] [address] [place] [address] [place] HCG Preg Ur Qlon 05-01-2022 HCG ( test) Ql (U) Normal [facility] Comment on above: Order Comment: Speci men Type: URINE SPECIMEN Ordering Facility: [facility] Address: [address] [place] [address] Result Comment: TEST NOT PERFORMED. NOTIFIED MORRO IN SDS AT 1354 ON 05/01/2022 Performed By: #### 2 106-3 #### [facility] CLIA [id number] [address] [place] [address] [place] HCG QUAL BLDon 05-01-2022 HCG, QUALITATIVE Negative Normal Negative [facility] Comment on above: Order Comment: Speci men Type: BLOOD SPECIMEN Ordering Facility: [facility] Address: [address] [place] [address] Performed By: #### H CG #### [facility] CLIA [id number] [address] [place], [place] [id number] [place] HISTORY PHYSICALon 2 HISTORY PHYSICAL HNO ID: [id number] Author: Michael Zafar DPM Service: Podiatry Author Type: Physician Type: HANDP Filed: 05/01/2022 3:53 PM Note Text: ORTHOPEDIC SERVICES HANDP SERVICE DATE: 05/01/2022 SERVICE TIME: 1552 Subjective HISTORY OF PRESENT ILLNESS: This is a 46 year old female, who presents today with a chief complaint of left foot pain and swelling. She complains of sharp and aching pain about the anterior aspect of approximately 6 month duration. She complains that the pain is 6/10. She reports prior history of injections causing pain to the left foot and a neuroma. PAST MEDICAL HISTORY Diagnosis Date Fibroadenoma of breast, left 01/2020 PONV (postoperative nausea and vomiting) Rheumatoid arthritis (HCC) PAST SURGICAL HISTORY Procedure Laterality Date BREAST BIOPSY Left 01/2020 HYSTEROSCOPY,W/ENDOMETR IAL ABLATION LIGATE FALLOPIAN TUBE 05/23/2005 NECK SURGERY HX NRV DESTR RFA, CHEM OTHER 12/25/2020 PAST SURGICAL HISTORY OF right hand repair PAST SURGICAL HISTORY OF tonsillectomy PAST SURGICAL HISTORY OF Current Facility-Administered Medications Medication Dose Route Frequency lactated ringers iv infusion 30 mL/hr INTRAVENOUS CONTINUOUS lidocaine 10 mg/mL (1 %) 1-2 mg injection (XYLOCAINE) 0.1-0.2 mL INTRADERMAL ONCE ceFAZolin iv piggyback 2 g in D5W (iso-osmotic) 100 mL (ANCEF) 2 g INTRAVENOUS ONCE metoclopramide HCl 10 mg injection (REGLAN) 10 mg INTRAVENOUS Pre-Op Once scopolamine 1 mg over 3 days 1 Patch (TRANSDERM-SCOP) 1 Patch TRANSDERMAL ONCE [START ON 05/04/2022] scopolamine - REMOVE PATCH OTHER q 72 HR And scopolamine - VERIFY patch OTHER q 8 H ALLERGIES No Known Allergies FAMILY HISTORY Problem Relation Age of Onset Colon Cancer Father Skin Cancer Mother Social History Tobacco Use Smoking status: Never Smokeless tobacco: Never Vaping Use Vaping Use: Never used Substance Use Topics Alcohol use: No Comment: once a year Drug use: No REVIEW OF SYSTEMS: GENERAL: Negative for malaise, significant weight loss, night sweats and fever HEENT: No changes in hearing or vision. No sinus pain or pressure, No trouble swallowing RESPIRATORY: Negative for cough, wheezing and shortness of breath CARDIOVASCULAR: Negative for chest pain, leg swelling, palpitations, orthopnea GI:Negative for abdominal discomfort, hematochezia, melena, hematemesis, change in bowel habits, diarrhea, constipation, nausea or vomiting. MUSCULOSKELETAL: See HPI PSYCH: Negative for sleep disturbance, mood disorder and recent psychosocial stressors. HEMATOLOGY Negative for prolonged bleeding, bruising easily, and swollen nodes. ENDOCRINE: Negative for cold or heat intolerance, polyuria, polydipsia and goiter. NEURO: Negative for lightheadedness, dizziness, tremor, gait imbalance, syncope and seizures. Objective PHYSICAL EXAM: Pleasant, comfortable, not in acute distress. Awake, alert, oriented times 4. SKIN: No evidence of erythema, warmth, bruising, abrasions, scars, deformity, or lacerations. NECK: Supple, no JVD, no carotid bruit, no thyromegaly. LUNGS: Clear to auscultation bilaterally. CARDIAC: RRR, S1 and S2, no S3 or S4, no additional heart sounds or murmurs. ABDOMEN: Soft, nontender, bowel sounds present. EXTREMITIES: No edema. PULSES: Peripheral pulses present. The remainder of the physical exam is noncontributory. BP 133/74 Pulse 81 Temp 36.7 ?C (98.1 ?F) (Temporal) Resp 18 Ht 160 cm (5' 3) Wt 75 kg (165 lb 4.8 oz) LMP 12/25/2020 (Exact Date) SpO2 100% BMI 29.28 kg/m? PROCEDURE: Neuroma excision and also capsular tightening left foot Assessment/Plan Active Problems: Neuroma left foot Capsulotomy left foot Resolved Problems: * No resolved hospital problems. * Medication and Non-Pharmacologic VTE Prophylaxis/Anticoagula nts VTE Prophylaxis: VTE prophylaxis appropriate SIGNATURE: Michael Zafar DPM PATIENT NAME: Tierra Malcolm DATE: May 01, 2022 TIME: 3:51 PM [facility] OPERATIVE NOon 05-01-2022 OPERATIVE NO HNO ID: [id number] Author: Ar Carlson DPM Service: Podiatry Author Type: Physician Type: Operative Report Filed: 05/01/2022 5:44 PM Note Text: OPERATIVE/PROCEDURE REPORT LOG ID: [id number] SURGERY/PROCEDURE DATE: 05/01/2022 INCISION/PROCEDURE START TIME: 4:48 PM INCISION CLOSE/PROCEDURE END TIME: 5:17 PM SURGEON(S)/PROCEDURALIS T(S) AND COGENERATION TECHNICIAN(S): Surgeon(s) and Role: * Michael Zafar DPM - Primary * Ar Carlson DPM - Fellow No Additional Staff SURGERY/PROCEDURE(S): Procedure(s) and Anesthesia Type: * EXCISION OF NEUROMA DIGITAL NERVE - General ANESTHESIA: General PRE-OP/PRE-PROCEDURE DIAGNOSIS: Left foot pain [M79.672] 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 Malcolm is a 46-year-old female who presents today for elective surgery consisting of neuroma excision to the left foot. Patient has been dealing with her pain for approximately 6 months. She has been treated conservatively through her outside provider consisting of 2 steroid injections however she now states that her second digit is deviating from its normal position. The patient has failed conservative treatment at our office consisting of taping, topical anesthesia and oral medications and due to the nature of her constant pain it has deemed necessary to take her to the operating room to remove her neuroma to help relieve her constant pain. The nature of the problem, anticipated procedure, postoperative recovery/convalences and the risk/complication including but not limited to infection, wound healing complication, hypertrophic scarring, numbness, tingling, chronic pain, CRPS, recurrence of deformity, over and under correction, DVT and PE and the need for further surgery have been discussed with the patient in great detail. All questions have been answered to the patient satisfaction. There are no guarantees to the given as to the outcome of the procedure. OPERATIVE FINDINGS: Under mild sedation, the patient was brought the operating room placed on the operating table supine position. Once the patient was under general anesthesia a 20 cc of 0.25% Marcaine plain was administered in ankle block fashion to the left lower extremity. Next, the left lower extremity was prepped and draped in usual aseptic manner. A well-padded tourniquet was applied to the left calf. After anesthesia was confirmed a timeout took place. Next, attention was directed to the left foot, second interspace. Using a sterile marker the incision was mapped out. Using a #15 blade, full-thickness vision down to subcutaneous tissue was made without incident. Continued blunt dissection was carried down to the level of the metatarsals all neurovascular structures were retracted and ligated as necessary. Continued blunt dissection was carried forward with Metzenbaum scissors. The DTI L was resected. After further blunt dissection the neuroma which was measured approximately 0.4 x 0.3 x 0.2 cm was removed from the second interspace of the left foot and passed the back table be sent off for pathology. Next attention was directed to the lateral aspect of the second metatarsal phalangeal joint. A wedge section was taken out of the capsule. The capsule was sutured with 2-0 Vicryl and showed to have better correction to the second metatarsophalangeal joint with Kelikian push-up test. The full-thickness incision was flushed with copious cori normal saline. The subcutaneous and deep tissue was closed with 2-0 Vicryl in buried suture technique. The tourniquet was deflated to the left lower extremity and showed excellent capillary refill time to all digits to left lower extremity. The skin was reapproximated using 4-0 Monocryl in subcuticular stitch technique. Half-inch Steri-Strips were applied to the incision. Left lower extremities was cleaned and patted dry. The incision was covered with Betadine soaked Adaptic, dry sterile dressing, Kerlix wrap, 4 inch cast padding and 4 inch Peri for hemostasis. The ankle cam boot was donned. The patient will be allowed to be partial weightbearing to the left heel for approximately 5 to 10 days until follow-up. The patient tolerated the procedure and anesthesia well in apparent satisfactory condition was transferred to the PACU for further morning prior to discharge home. Vital signs stable vascular status intact all digits bilateral. ESTIMATED BLOOD LOSS: 10 cc SPECIMENS: Neuroma, second interspace, left lower extremity * No implants in log * DRAINS: None COMPLICATIONS: None PARTICIPATION IN SURGERY/PROCEDURE: Fellow Dr Aldo DPM , under direct supervision and the remainder of the procedure was performed by the primary surgeon/proceduralist with assistance. SIGNATURE: Ar Carlson DPM PATIENT NAME: Tierra Malcolm DATE: May 01, 2022 TIME: 5:33 PM PAGER/CONTACT #: [facility] SURGICAL PATHOLOGYon 05-01- 022 CASE REPORT [facility] Comment on above: Order Comment: Speci men Type: TISSUE SPECIMEN Ordering Facility: [facility] Address: [address] [place] [id number] Result Comment: Surg ica Pathology Report Case: [id number] Authorizing Provider: Michael Zafar DPM Collected: 05/01/2022 04:54 PM Ordering Location: [facility] Surgery Received: 05/02/2022 07:28 AM Pathologist: Arlene Walker MD Specimen: SOFT TISSUE, Neuroma left foot Performed By: #### S #### [facility] CLIA [id number] [address] [place] [address] CLINICAL HISTORY Normal [facility] Comment on above: Order Comment: Speci argentina Type: TISSUE SPECIMEN Ordering Facility: [facility] Address: [address] [place] [address] Result Comment: Pre- op diagnosis: Left foot pain [M79.672] Lesion of left plantar nerve [G57.62] Performed By: #### S #### [facility] CLIA [id number] [address] [place] [address] FINAL DIAGNOSIS Normal [facility] Comment on above: Order Comment: Lindseyi argentina Type: TISSUE SPECIMEN Ordering Facility: [facility] Address: [address] [place] [address] Result Comment: A. L eft foot, neuroma, excision: - Fibroadipose tissue and hypertrophic nerves with focal fibrosis consistent with neuroma. Performed By: #### S #### [facility] CLIA [id number] [address] [place] [address] FINAL PERFORMING LAB Normal [facility] Comment on above: Order Comment: Shirlene elaine Type: TISSUE SPECIMEN Ordering Facility: [facility] Address: [address] [place] [address] Result Comment: Diag nostic interpretation performed at [facility], [address] [place] [address] CLIA# [id number] Groover Runner: Arlene Walker M.D. Performed By: #### S #### [facility] CLIA [id number] [address] [place] [address] GROSS DESCRIPTION A. SOFT TISSUE Normal [facility] Comment on above: Order Comment: Shirlene elaine Type: TISSUE SPECIMEN Ordering Facility: [facility] Address: [address] [place] [address] Result Comment: Rece ived in formalin labeled with patient name and medical record number and neuroma left foot, are 2 yellow-rivas portions of soft tissue aggregating 1.9 x 1.1 x 0.4 cm. The specimen is entirely submitted in cassette A1. Gross examination performed at [facility], [address] [place] [address] CLIA#[id number] Wendy Kim May 02, 2022 8:17 AM Performed By: #### S #### [facility] CLIA [id number] [address] [place], [place] [id number] [facility] MICROSCOPIC DESCRIPTION One H AND E stai elder slide examined. [facility] Comment on above: Order Comment: Speci men Type: TISSUE SPECIMEN Ordering Facility: [facility] Address: [facility] [place] [address] Performed By: #### S #### [facility] CLIA [id number] [address] [place], [place] [id number] [facility] NURSING PROGon 04-30-2022 NURSING PROG HNO ID: [id number] Author: Yulisa Montanez RN Service: Nursing Author Type: Registered Nurse Type: Nursing Progress Note Filed: 04/30/2022 3:55 PM Note Text: PRE-PROCEDURE INSTRUCTIONS TO PREPARE FOR YOUR PROCEDURE: Your arrival time for your procedure is 1300. Do NOT eat any solid foods after MIDNIGHT the night prior to your procedure - this includes gum or mints. You can drink clear liquids* up until 1100, which is 2 hours before your arrival time. *Clear liquids = water, carbohydrate drink (sports drink that is clear or yellow in color), Ensure Pre-Surgery (given by PEARL or norma Smyth), fruit juice without pulp (apple/cranberry), clear tea, black coffee (no cream). NO ALCOHOL. Shower the morning of the procedure, put on clean clothes, and have clean sheets for your bed to help prevent infection after your procedure. Leave all valuables such as jewelry including rings, piercings, wallets, and purses at home. Wear comfortable, loose-fitting clothing. If you wear glasses or contacts, please bring a case. SPECIAL INSTRUCTIONS: If instructed, bring your first voided urine specimen with you. If you were provided skin preparation to use prior to your procedure, complete this as directed. If you use crutches or a walker, bring them with you. If you have a home CPAP/BIPAP machine, bring it with you. If you were instructed to complete a fleets enema or bowel prep, complete as directed. Bring copy of Living Will/Power of Supervisor Riveting. Do not smoke or chew. If you use tobacco, quit or at least cut down before surgery. Do not smoke or chew after midnight the day before your surgery. This effects bleeding, infection, healing, and so much more. Do not take any Diet or Herbal Supplements 2 weeks prior to your surgery date. Please notify your physician if there is any change in your physical condition such as a cold, cough, fever, sore throat, or skin irritation near the surgical site. Visitors under the age of 14 are restricted in the Surgery Center. UPON ARRIVAL: Access to [facility] (the glass building) is located on [address] Oxygen Equipment Preparer parking is available for your convenience from 5am-5pm- there is a $5.00 charge for this service. Take the elevators directly inside the entrance to the 1st Floor Surgery Lobby. Sign in at the podium located to the left when you get off the elevators. A payment may be expected at the time of service. One visitor may come back to the preoperative area with you. The preoperative staff will be reviewing your medical history, please let them know if you prefer not to have a visitor with you during this time. Once you are ready for surgery, two visitors at a time are permitted in your preoperative room. Will call back with [facility] Erythrocyte sedimentation ra maritza 03-04-2022 ESR (Bld) [Velocity] 5 mm/h 0-30 [facility] Work [facility]: Absolute lymphocyte counton 02-13-2022 Lymphocytes Auto (Unsp spec) [#/Vol] 1.44 10*3/uL 0.83-4.51 [facility] Work Phone: Basophil percentageon 2021 Basophils/100 WBC (Bld) 0.6 % 0-1 [facility] Work Phone: Eosinophils/100 WBC (Bld) 2.8 % 0-5 [facility] Work Phone: Neutrophils (Bld) [#/Vol] 3.0 10*3/uL 2.0-7.7 [facility] Work Phone: Neutrophils/100 WBC (Bld) 58.7 % 47-70 [facility] Work Phone: WBC (Bld) [#/Vol] 5.0 10*3/uL 4.4-11.0 [facility] Work Phone: Blood erythrocytes count (nu mber/volume)on 02-13-2022 RBC (Bld) [#/Vol] 3.76 10*6/uL 4.2-5.4 [facility]: Blood hemoglobin measurement (mass/volume)on 02-13-2022 Hemoglobin (Bld) [Mass/Vol] 12.1 g/dL 12.0-15.0 [facility] Work Phone: Blood lymphocytes/100 leukoc yteson 02-13-2022 Lymphocytes/100 WBC (Bld) 28.6 % 19-41 [facility] Work Phone: Blood monocytes/100 leukocyt eson 02-13-2022 Monocytes/100 WBC (Bld) 9.1 % 0-10 [facility] Work Phone: Blood platelet mean volumeon 02-13-2022 Platelet mean volume (Bld) [Entitic vol] 10.3 fL 6.2-12.0 [facility] Work Phone: Determination of erythrocyte mean corpuscular volume (MCV)on 02-13-2022 MCV (RBC) [Entitic vol] 95.5 fL 81-99 [facility] Work Phone: [phone] Hematocrit Auto (Bld) [Volum e fraction]on 02-13-2022 Hematocrit (Bld) [Volume fraction] 35.9 % 37-47 [facility] Work Phone: Laboratory - Hematology and Cell countson 02-13-2022 Erythrocyte distribution width (RBC) [Entitic vol] 47.2 fL 35.1-43.9 [facility] Work Phone: Erythrocyte distribution width (RBC) [Ratio] 13.3 % 11.6-14.6 [facility] Work Phone: Immature granulocytes/100 WBC (Bld) 0.200 % 0.0-0.9 [facility] Work Phone: Comment on above: IG% - Immature Granu locytes (promyelocytes, myelocytes and metamyelocytes) > 1% indicates that a LEFT SHIFT is Present. MCH (RBC) [Entitic mass] 32.2 pg 27.0-32.0 [facility] Work Phone: Nucleated RBC/100 WBC (Bld) [Ratio] 0 % 0-5 [facility] Work Phone: MCHC Auto (RBC) [Mass/Vol]on 02-13-2022 MCHC (RBC) [Mass/Vol] 33.7 g/dL 32-36 [facility] Work Phone: Platelets bldon 02-13-2022 Platelets (Bld) [#/Vol] 262 10*3/uL 150-450 [facility] Work Phone: Absolute lymphocyte counton 01-22-2022 Lymphocytes Auto (Unsp spec) [#/Vol] 1.94 10*3/uL 0.83-4.51 [facility] Work Phone: Basophil percentageon 2021 Basophils/100 WBC (Bld) 1.0 % 0-1 [facility] Work Phone: Bilirubin [Mass/Vol] 0.20 mg/dL 0.20-1.00 [facility] Work Phone: Comment on above: For patients on eltr ombopag therapy, use of Dimension Otis TBIL is not recommended. Chloride [Moles/Vol] 106 mmol/L 98-107 [facility] Work Phone: Cholesterol [Mass/Vol] 175 mg/dL <200 [facility] Work Phone: [phone] Comment on above: <200 mg/dL Desirable 200-240 mg/dL Borderline >240 mg/dL High Risk Eosinophils/100 WBC (Bld) 2.5 % 0-5 [facility] Work Phone: Glucose [Mass/Vol] 90 mg/dL 74-106 [facility] Work Phone: Neutrophils (Bld) [#/Vol] 4.9 10*3/uL 2.0-7.7 [facility] Work Phone: Neutrophils/100 WBC (Bld) 62.8 % 47-70 [facility] Work Phone: [phone] Potassium [Moles/Vol] 4.0 mmol/L 3.5-5.1 [facility] Work Phone: Protein [Mass/Vol] 7.0 g/dL 6.4-8.2 [facility] Work Phone: Sodium [Moles/Vol] 137 mmol/L 136-145 [facility] Work Phone: Triglyceride [Mass/Vol] 141 mg/dL <199 [facility] Work Phone: [phone] Comment on above: The drugs N-Acetylcy steine and Metamizole may falsely depress this assay.Serum Triglycerides Reference Interval Normal <150 mg/dL Borderline high 150 - 199 mg/dL High 200 - 499 mg/dL Very High > or = 500 mg/dL WBC (Bld) [#/Vol] 7.7 10*3/uL 4.4-11.0 [facility] Work Phone: Blood erythrocytes count (nu mber/volume)on 01-22-2022 RBC (Bld) [#/Vol] 3.95 10*6/uL 4.2-5.4 [facility] Work Phone: Blood hemoglobin measurement (mass/volume)on 01-22-2022 Hemoglobin (Bld) [Mass/Vol] 12.5 g/dL 12.0-15.0 [facility] Work Phone: Blood lymphocytes/100 leukoc yteson 01-22-2022 Lymphocytes/100 WBC (Bld) 25.1 % 19-41 [facility] Work Phone: Blood monocytes/100 leukocyt eson 01-22-2022 Monocytes/100 WBC (Bld) 8.3 % 0-10 [facility] Work Phone: Blood platelet mean volumeon 01-22-2022 Platelet mean volume (Bld) [Entitic vol] 11.7 fL 6.2-12.0 [facility] Work Phone: Determination of erythrocyte mean corpuscular volume (MCV)on 01-22-2022 MCV (RBC) [Entitic vol] 93.9 fL 81-99 [facility] Work Phone: Hematocrit Auto (Bld) [Volum e fraction]on 01-22-2022 Hematocrit (Bld) [Volume fraction] 37.1 % 37-47 [facility] Work Phone: Laboratory - Chemistry and C hemistry - challengeon 01-22-2022 ALP [Catalytic activity/Vol] 79 U/L 45-117 [facility] Work Phone: ALT [Catalytic activity/Vol] 21 U/L 13-56 [facility] Work Phone: CO2 [Moles/Vol] 28.0 mmol/L 21.0-32.0 [facility] Work Phone: Globulin (S) [Mass/Vol] 3.2 g/dL 2.2-4.2 [facility] Work Phone: Urea nitrogen/Creatinine [Mass ratio] 24.2 mg/mg 10-20 [facility] Work Phone: Laboratory - Hematology and Cell countson 01-22-2022 Erythrocyte distribution width (RBC) [Entitic vol] 43.8 fL 35.1-43.9 [facility] Work Phone: [phone] Erythrocyte distribution width (RBC) [Ratio] 12.8 % 11.6-14.6 [facility] Work Phone: Immature granulocytes/100 WBC (Bld) 0.300 % 0.0-0.9 [facility] Work Phone: Comment on above: IG% - Immature Granu locytes (promyelocytes, myelocytes and metamyelocytes) > 1% indicates that a LEFT SHIFT is Present. MCH (RBC) [Entitic mass] 31.6 pg 27.0-32.0 [facility] Work Phone: Nucleated RBC/100 WBC (Bld) [Ratio] 0 % 0-5 [facility] Work Phone: MCHC Auto (RBC) [Mass/Vol]on 01-22-2022 MCHC (RBC) [Mass/Vol] 33.7 g/dL 32-36 [facility] Work Phone: No Panel Informationon 01-22 Estimated GFR (MDRD) Amer 144 mL/min >60 [facility] Work Phone: Comment on above: GFR Calc Estimated GFR (MDRD) Non-Af Amer 119 mL/min >60 [facility] Work Phone: Comment on above: Non- GFR Calc Vitamin D 25-Hydroxy 46.5 ng/mL [facility] Work Phone: Comment on above: Vitamin D 25(OH) Sta tus Range Deficiency <20 ng/mL (50nmol/L) Insufficiency 20 - 30 ng/mL (50 - 75 nmol/L) Sufficiency 30 - 100 ng/mL (75 - 250 nmol/L) Toxicity >100 ng/mL (>250 nmol/L) Platelets bldon 01-22-2022 Platelets (Bld) [#/Vol] 297 10*3/uL 150-450 [facility] Work Phone: Serum or plasma albumin new urement (mass/volume)on 01-22-2022 Albumin [Mass/Vol] 3.8 g/dL 3.2-5.0 [facility] Work Phone: Serum or plasma albumin/glob ulin mass ratioon 01-22-2022 Albumin/Globulin [Mass ratio] 1.2 {ratio} 0.9-2.4 [facility] Work Phone: [phone] Serum or plasma calcium new urement (mass/volume)on 01-22-2022 Calcium [Mass/Vol] 9.4 mg/dL 8.5-10.1 [facility] Work Phone: Serum or plasma cholesterol in HDL measurement (mass/volume)on 01-22-2022 Cholesterol in HDL [Mass/Vol] 58 mg/dL >40 [facility] Work Phone: Comment on above: The drugs N-Acetylcy steine and Metamizole may falsely depress this assay. Reference Range HDL <40 mg/dL Low HDL Cholesterol HDL >or= 60 mg/dL High HDL Cholesterol Serum or plasma cholesterol in VLDL measurement (mass/volume)on 01-22-2022 Cholesterol in VLDL [Mass/Vol] 28 mg/dL 5-40 [facility] Work Phone: Serum or plasma creatinine m easurement (mass/volume)on 01-22-2022 Creatinine [Mass/Vol] 0.58 mg/dL 0.55-1.02 [facility] Work Phone: Comment on above: The validity of the calculated GFR & GFRAA in patients over 70 years has not been determined. Clinical correlation is essential. Serum or plasma low density lipoprotein (LDL) cholesterol measurement (mass/volume)on 01-22-2022 Cholesterol in LDL [Mass/Vol] 89 mg/dL 0-130 [facility] Work Phone: Serum or plasma urea nitroge n measurement (mass/volume)on 01-22-2022 Urea nitrogen [Mass/Vol] 14 mg/dL 7-18 [facility] Work Phone: Thin prep Papanicolaou smear with manual screeningon 01-22-2022 Thin prep Papanicolaou smear with manual screening 18 U/L 15-37 [facility] Work Phone: Thin prep Papanicolaou smear with manual screening 3 5-15 [facility] Work Phone: Glucose Glucometer (BldC) [M ass/Vol]on 12-17-2021 Glucose [Mass/Vol] 89 mg/dL 74-106 [facility] Work Phone: Comment on above: MANAGEMENT OF PATIEN T CARE PER NURSING PROTOCOL Absolute lymphocyte counton 12-05-2021 Lymphocytes Auto (Unsp spec) [#/Vol] 1.76 10*3/uL 0.83-4.51 [facility] Work Phone: Basophil percentageon 2021 Basophils/100 WBC (Bld) 0.7 % 0-1 [facility] Work Phone: Chloride [Moles/Vol] 104 mmol/L 98-107 [facility] Work Phone: [phone] Eosinophils/100 WBC (Bld) 4.0 % 0-5 [facility] Work Phone: [phone] Glucose [Mass/Vol] 100 mg/dL 74-106 [facility] Work Phone: Comment on above: Fasting Glucose resu lt from 100 to 125 mg/dL suggests IMPAIRED HOMEOSTASIS per A.D.A. criteria. Neutrophils (Bld) [#/Vol] 3.5 10*3/uL 2.0-7.7 [facility] Work Phone: Neutrophils/100 WBC (Bld) 57.9 % 47-70 [facility] Work Phone: [phone] Potassium [Moles/Vol] 3.6 mmol/L 3.5-5.1 [facility] Work Phone: Sodium [Moles/Vol] 138 mmol/L 136-145 [facility] Work Phone: [phone] WBC (Bld) [#/Vol] 6.1 10*3/uL 4.4-11.0 [facility] Work Phone: Blood erythrocytes count (nu mber/volume)on 12-05-2021 RBC (Bld) [#/Vol] 3.86 10*6/uL 4.2-5.4 [facility] Work Phone: Blood hemoglobin measurement (mass/volume)on 12-05-2021 Hemoglobin (Bld) [Mass/Vol] 12.1 g/dL 12.0-15.0 [facility] Work Phone: Blood lymphocytes/100 leukoc yteson 12-05-2021 Lymphocytes/100 WBC (Bld) 29.0 % 19-41 [facility] Work Phone: Blood monocytes/100 leukocyt eson 12-05-2021 Monocytes/100 WBC (Bld) 8.2 % 0-10 [facility] Work Phone: Blood platelet mean volumeon 12-05-2021 Platelet mean volume (Bld) [Entitic vol] 10.7 fL 6.2-12.0 [facility] Work Phone: Determination of erythrocyte mean corpuscular volume (MCV)on 12-05-2021 MCV (RBC) [Entitic vol] 92.7 fL 81-99 [facility] Work Phone: HIV 1 and HIV-2 antibody ass ay with HIV-1 p24 antigen detectionon 12-05-2021 HIV 1+2 Ab+HIV1 p24 Ag IA Ql Non-Reactive Nonreactive [facility] Work Phone: Hematocrit Auto (Bld) [Volum e fraction]on 12-05-2021 Hematocrit (Bld) [Volume fraction] 35.8 % 37-47 [facility] Work Phone: Laboratory - Chemistry and C hemistry - challengeon 12-05-2021 CO2 [Moles/Vol] 26.0 mmol/L 21.0-32.0 [facility] Work Phone: Magnesium [Mass/Vol] 1.9 mg/dL 1.6-2.6 [facility] Work Phone: Urea nitrogen/Creatinine [Mass ratio] 19.7 mg/mg 10-20 [facility] Work Phone: Laboratory - Hematology and Cell countson 12-05-2021 Erythrocyte distribution width (RBC) [Entitic vol] 42.6 fL 35.1-43.9 [facility] Work Phone: Erythrocyte distribution width (RBC) [Ratio] 12.6 % 11.6-14.6 [facility] Work Phone: Immature granulocytes/100 WBC (Bld) 0.200 % 0.0-0.9 [facility] Work Phone: Comment on above: IG% - Immature Granu locytes (promyelocytes, myelocytes and metamyelocytes) > 1% indicates that a LEFT SHIFT is Present. MCH (RBC) [Entitic mass] 31.3 pg 27.0-32.0 [facility] Work Phone: Nucleated RBC/100 WBC (Bld) [Ratio] 0 % 0-5 [facility] Work Phone: MCHC Auto (RBC) [Mass/Vol]on 12-05-2021 MCHC (RBC) [Mass/Vol] 33.8 g/dL 32-36 [facility] Work Phone: No Panel Informationon 12-05 Estimated GFR (MDRD) Amer 136 mL/min >60 [facility] Work Phone: Comment on above: GFR Calc Estimated GFR (MDRD) Non-Af Amer 112 mL/min >60 [facility] Work Phone: Comment on above: Non- GFR Calc Hepatitis A Antibody Total Negative Negative [facility] Work Phone: Comment on above: Performed at: [address] [id number] Director: Jose Miguel Grimm PhD, Phone: [phone] Hepatitis C Antibody Non-Reactive Nonreactive [facility] Work Phone: Comment on above: Non Reactive: < 0.8 Equivocal: >/= 0.8 to < 1.0 Reactive: >/= 1.0The CDC recommends that a reactive/equivocal HCV antibody result be followed up by the HCV Nucleic Acid Amplificationtest (243980) Nasal Screen MRSA/MSSA [facility] Work Phone: Platelets bldon 12-05-2021 Platelets (Bld) [#/Vol] 257 10*3/uL 150-450 [facility] Work Phone: Serum hepatitis B virus surf peri antibody IgG detectionon 12-05-2021 HBV surface IgG Ql (S) Non-Reactive [facility] Work Phone: Comment on above: Non Reactive: Incons istent with immunity less than <10 mIU/mL Reactive: Consistent with immunity greater than or equal to 10 mIU/mL Serum or plasma calcium new urement (mass/volume)on 12-05-2021 Calcium [Mass/Vol] 8.8 mg/dL 8.5-10.1 [facility] Work Phone: Serum or plasma creatinine m easurement (mass/volume)on 12-05-2021 Creatinine [Mass/Vol] 0.61 mg/dL 0.55-1.02 [facility] Work Phone: Comment on above: The validity of the calculated GFR & GFRAA in patients over 70 years has not been determined. Clinical correlation is essential. Serum or plasma urea nitroge n measurement (mass/volume)on 12-05-2021 Urea nitrogen [Mass/Vol] 12 mg/dL 7-18 [facility] Work Phone: Thin prep Papanicolaou smear with manual screeningon 12-05-2021 Thin prep Papanicolaou smear with manual screening 8 5-15 [facility] Work Phone: Erythrocyte sedimentation ra maritza 10-24-2021 ESR (Bld) [Velocity] 5 mm/h 0-30 [facility] Work Phone: Serum or plasma C reactive p rotein measurement (mass/volume)on 10-24-2021 CRP [Mass/Vol] mg/L 0.0-3.0 [facility] Work Phone: Comment on above: C-Reactive Protein ( CRP) provides useful information for thediagnosis, therapy and monitoring of inflammatory processesand associated diseases. For the evaluation of Relative Riskfor Cardiovascular Disease, a High Sensitivity CRP (HSCRP)should be ordered. Serum or plasma cortisol santos surement (mass/volume)on 08-01-2021 Cortisol [Mass/Vol] 21.90 ug/dL 3.44-22.45 [facility] Work Phone: Comment on above: Adult (AM) 5.27 - 22 .45 ug/dL Adult (PM) 3.44 - 16.76 ug/dLPlease note revised CORTISOL reference range effective 2019. CNOVon 03-28-2021 CNOV Office Visit (AGOBST ) TIERRA MALCOLM ([id number]) 1975 F Date Time Provider Department 03/28/21 9:15 AM SAVANNAH GOMEZ During your visit today, we recorded the following information about you: Blood pressure Weight Height 119/75 79.4 kg 1.6 m Savannah Gomez DO 03/28/2021 9:26 AM Signed Tierra Gaston Gold is a 45 year old female who presents with a chief complaint of Post Op SUBJECTIVE She presents as a follow-up 3 months from her [facility] hysteroscopy and endometrial ablation. She states she still has periods but they are very light to the point where she does not really need a tampon. She is doing well denies any problems. She is very happy with her surgery. 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 - PONV (postoperative nausea and vomiting) - Rheumatoid arthritis (HCC) PAST SURGICAL HISTORY Procedure Laterality Date - BREAST BIOPSY Left 01/2020 - LIGATE FALLOPIAN TUBE 05/23/2005 - NRV DESTR RFA, CHEM OTHER 12/25/2020 - PAST SURGICAL HISTORY OF right hand repair - PAST SURGICAL HISTORY OF tonsillectomy - PAST SURGICAL HISTORY OF Social History Tobacco Use - Smoking status: Never Smoker - Smokeless tobacco: Never Used Vaping Use - Vaping Use: Never used Substance Use Topics - Alcohol use: No Comment: once a year - Drug use: No FAMILY HISTORY Problem Relation Age of Onset - Colon Cancer Father - Skin Cancer Mother Obstetric History T0 L0 SAB0 TAB0 Ectopic0 Multiple0 Live Births0 OBJECTIVE ALLERGIES No Known Allergies Current Outpatient Medications Medication Sig - CEPHALEXIN ORAL Take by mouth. - ORENCIA CLICKJECT 125 mg/mL - rosuvastatin (CRESTOR) 10 mg tablet Take 10 mg by mouth once daily. - predniSONE 10 mg tablet pack Take 10 mg by mouth once daily. - Zinc 50 mg tab Take 50 mg by mouth once daily. - VITAMIN A ORAL Take by mouth. - ascorbic acid (VITAMIN C ORAL) Take 500 mg by mouth once daily. - cholecalciferol, vitamin D3, (VITAMIN D3 ORAL) Take 50,000 mg by mouth one time a week. - ibuprofen (MOTRIN) 600 mg tablet Take 1 tablet by mouth every 6 hours as needed for pain. No current facility-administered medications for this visit. Review of Systems Constitutional: Denies weight loss, weight gain, fever Eyes: Negative vision changes ENT/Mouth: No ulcers, sinusitis, tinnitus Cardiovascular: Denies LEYVA, Edema, palpitations, chest pain Respiratory: Denies wheezing, hemoptysis, SOB, cough Gastrointestinal: Denies diarrhea, bloody stool, constipation Genitourinary: See HPI Musculoskeletal: Denies muscle weakness Skin/breast: Denies discharge, masses, rash, ulcers Neurological: Denies syncope, seizures, numbness Physical Exam BP 119/75 Ht 5' 3 (1.60m) Wt 175 lb (79.4kg) LMP 12/25/2020 BMI 31.01 kg/(m2). General: No Acute Distress, Well nourished, Well developed, No obvious deformities and Alert/Oriented x 3 Mood/Affect: Normal HEENT: Normocephalic, Atraumatic and Grossly Within Normal Limits GI: Abdomen soft, non-tender, no masses, Liver/spleen non-palpable, No hernias and Normoactive bowel sounds Skin: Intact, no lesions ASSESSMENT/PLAN: 1. Menorrhagia with regular cycle - ICD9: 626.2, ICD10: N92.0 Menorrhagia has resolved. Follow-up with Dr. Mae for annual Savannah Gomez DO Referring Provider: SAVANNAH GOMEZ [[id number]] Allergies As of Date: 03/28/2021 (No Known Allergies) Date Reviewed: 03/28/2021 Reviewed by: Wendy Ko MA - Fully Assessed Reason for Visit: Post Op [174] Primary Visit Diagnosis:Menorrhagia with regular cycle [N92.0] Prescriptions as of 03/28/2021 - CEPHALEXIN ORAL Take by mouth. - ibuprofen (MOTRIN) 600 mg tablet Take 1 tablet by mouth every 6 hours as needed for pain. - ORENCIA CLICKJECT 125 mg/mL - rosuvastatin (CRESTOR) 10 mg tablet Take 10 mg by mouth once daily. - predniSONE 10 mg tablet pack Take 10 mg by mouth once daily. - Zinc 50 mg tab Take 50 mg by mouth once daily. - VITAMIN A ORAL Take by mouth. - ascorbic acid (VITAMIN C ORAL) Take 500 mg by mouth once daily. - cholecalciferol, vitamin D3, (VITAMIN D3 ORAL) Take 50,000 mg by mouth one time a week. Problem List As Of Date: 03/28/2021 (None) Disposition: Return if symptoms worsen or fail to improve. Follow-up and Disposition History Recorded Encounter Status:Closed by SAVANNAH GOMEZ on 03/28/21 [facility] CNCOon 02-21-2021 CNCO HNO ID: [id number] Author: Mammography Coordinator Service: ? Author Type: Physician Type: Letter Filed: 02/25/2021 11:31 PM Note Text: [address] [address] February 21, 2021 PID: [id number] Tierra Malcolm [address] [place] [address] Dear Ms. Malcolm, We are pleased to inform you that the results of your recent breast imaging exam on 02/21/2021 are normal. Early detection of cancer is very important. We also understand recommendations regarding breast cancer screening are controversial. Please discuss with your primary care provider which strategy is best for you and whether a mammogram is right for you. Your imaging studies and report will be kept on file at [facility] as part of your permanent medical record and are available for your continuing care. Thank you for allowing us to help in meeting your health care needs. Sincerely, Dr. Mina Interpreting Radiologist [facility] (Normal over 40) Normal [facility] SCREENINGon 02-21-2021 [facility] SCREENING * * *Final Report* * * DATE OF EXAM: Feb 21 2021 8:25AM LDW [id number] - [facility] SCREENING / PROCEDURE REASON: Encounter for screening mammogram for malignant neoplasm of breast * * * * Physician Interpretation * * * * #[id number] - [facility] SCREENING BILATERAL DIGITAL SCREENING MAMMOGRAM WITH CAD: 02/21/2021 HISTORY: / Screening Mammogram-Patient reports NO symptoms. RESULT: TECHNIQUE: The study was acquired using full field digital technology and interpreted from soft copy. Current study was also evaluated with a Computer Aided Detection (CAD). Comparison is made to exams dated: 01/17/2020 mammogram - [facility], 01/11/2020 mammogram, 01/04/2020 mammogram, 09/28/2018 mammogram, and 06/02/2017 mammogram - [facility]. The tissue of both breasts is heterogeneously dense. This may lower the sensitivity of mammography. No significant masses, calcifications, or other findings are seen in either breast. There has been no significant interval change. IMPRESSION: NEGATIVE There is no mammographic evidence of malignancy. A 1 year screening mammogram is recommended. Heaven monsivais/stanislaw:02/21/2021 08:28:57 Category Director(s): Brian Neely (Edith)(M), [facility] letter sent: Normal over 40 Mammogram BI-RADS: 1 Negative Multiple national specialty organizations have released breast cancer screening guidelines for women at average risk for developing breast cancer - guidelines that are based on both evidence and opinion, yet differ on when to start and how often to screen for breast cancer. With representation from Breast Imaging, Internal Medicine, Women's Health, Family Medicine, and Medical/Surgical Oncology, the [facility] has carefully reviewed the data and reached the following consensus: 1) All women should engage in shared decision-making with their providers to decide when to start and how often to screen; 2) All women should have the opportunity to start screening mammography at age 40; 3) For women ages 45-55, we recommend annual screening mammograms; 4) For women ages 55 and over, we support both the transition from an annual to a biennial interval if this aligns more with patient's values and preferences, or continuation with annual screening; 5) All women should discuss with their providers when to stop screening mammograms. Vehicle Operator: Stanislaw Transcribe Date/Time: Feb 21 2021 8:09A Dictated by : HEAVEN MINA MD This examination was interpreted and the report reviewed and electronically signed by: HEAVEN MINA MD on Feb 21 2021 8:28AM EST [id number] Normal [facility] CNOVon 01-07-2021 CNOV Office Visit (AGOBST ) TIERRA MALCOLM ([id number]) 1975 F Date Time Provider Department 01/07/21 9:45 AM SAVANNAH GOMEZ During your visit today, we recorded the following information about you: Blood pressure Weight Height Last Period 110/77 77.6 kg 1.6 m 12/25/20 Savannah Gomez DO 01/07/2021 10:00 AM Signed Tierra Gaston Gold is a 45 year old female who presents with a chief complaint of Post-Op Visit SUBJECTIVE Presents 2 weeks postop [facility] hysteroscopy and endometrial ablation. She is doing well denies any problems. We went over her surgery and her pathology together. She states that her discharge is watery and blood-tinged. This sounds good for the procedure she had. 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 - PONV (postoperative nausea and vomiting) - Rheumatoid arthritis (HCC) PAST SURGICAL HISTORY Procedure Laterality Date - BREAST BIOPSY Left 01/2020 - LIGATE FALLOPIAN TUBE 05/23/2005 - NRV DESTR RFA, CHEM OTHER 12/25/2020 - PAST SURGICAL HISTORY OF right hand repair - PAST SURGICAL HISTORY OF tonsillectomy - PAST SURGICAL HISTORY OF Social History Tobacco Use - Smoking status: Never Smoker - Smokeless tobacco: Never Used Vaping Use - Vaping Use: Never used Substance Use Topics - Alcohol use: No Comment: once a year - Drug use: No FAMILY HISTORY Problem Relation Age of Onset - Colon Cancer Father - Skin Cancer Mother Obstetric History T0 L0 SAB0 TAB0 Ectopic0 Multiple0 Live Births0 OBJECTIVE ALLERGIES No Known Allergies Current Outpatient Medications Medication Sig - ibuprofen (MOTRIN) 600 mg tablet Take 1 tablet by mouth every 6 hours as needed for pain. - ORENCIA CLICKJECT 125 mg/mL - rosuvastatin (CRESTOR) 10 mg tablet Take 10 mg by mouth once daily. - predniSONE 10 mg tablet pack Take 15 mg by mouth once daily. - Zinc 50 mg tab Take 50 mg by mouth once daily. - VITAMIN A ORAL Take by mouth. - ascorbic acid (VITAMIN C ORAL) Take 500 mg by mouth once daily. - cholecalciferol, vitamin D3, (VITAMIN D3 ORAL) Take 50,000 mg by mouth one time a week. No current facility-administered medications for this visit. Review of Systems Constitutional: Denies weight loss, weight gain, fever Eyes: Negative vision changes ENT/Mouth: No ulcers, sinusitis, tinnitus Cardiovascular: Denies LEYVA, Edema, palpitations, chest pain Respiratory: Denies wheezing, hemoptysis, SOB, cough Gastrointestinal: Denies diarrhea, bloody stool, constipation Genitourinary: See HPI Musculoskeletal: Denies muscle weakness Skin/breast: Denies discharge, masses, rash, ulcers Neurological: Denies syncope, seizures, numbness Physical Exam BP 110/77 Ht 5' 3 (1.60m) Wt 171 lb (77.6kg) LMP 12/25/2020 BMI 30.30 kg/(m2). General: No Acute Distress, Well nourished, Well developed, No obvious deformities and Alert/Oriented x 3 Mood/Affect: Normal HEENT: Normocephalic, Atraumatic and Grossly Within Normal Limits GI: Abdomen soft, non-tender, no masses, Liver/spleen non-palpable, No hernias and Normoactive bowel sounds Skin: Intact, no lesions ASSESSMENT/PLAN: 1. Post-operative state - ICD9: V45.89, ICD10: Z98.890 Follow-up in 3-month Savannah Gomez DO Referring Provider: SAVANNAH GOMEZ [[id number]] Allergies As of Date: 01/07/2021 (No Known Allergies) Date Reviewed: 01/07/2021 Reviewed by: Stefanie Foley MA - Fully Assessed Reason for Visit: Post-Op Visit [1236] Primary Visit Diagnosis:Post-operativ e state [Z98.890] Prescriptions as of 01/07/2021 Sig: IBUPROFEN 600 MG TABLET Take 1 tablet by mouth every * ORENCIA CLICKJECT 125 MG/ML S* ROSUVASTATIN 10 MG TABLET Take 10 mg by mouth once felicia* PREDNISONE 10 MG TABLETS IN A* Take 15 mg by mouth once felicia* ZINC 50 MG TABLET Take 50 mg by mouth once felicia* VITAMIN A ORAL Take by mouth. VITAMIN C ORAL Take 500 mg by mouth once sangeetha* VITAMIN D3 ORAL Take 50,000 mg by mouth one t* Problem List As Of Date: 01/07/2021 (None) Disposition: Return in about 3 months (around 04/09/2021) for f/u. Follow-up and Disposition History Recorded Encounter Status:Closed by SAVANNAH GOMEZ on 01/07/21 [facility] ANES POSTPROC EVALon 021 ANES POSTPROC EVAL HNO ID: [id number] Author: Yfn Spears MD Service: Anesthesiology Author Type: Physician Type: Anesthesia Postprocedure Evaluation Filed: 12/25/2020 9:48 PM Note Text: POST ANESTHESIA EVALUATION NOTE : 1975 Procedure Summary Date: 12/25/20 Room / Location: NC OR / NC OR Anesthesia Start: 751 Anesthesia Stop: 834 Procedures: HYSTEROSCOPY WITH ENDOMETRIAL ABLATION (N/A Uterus) DILATION AND CURETTAGE (N/A Uterus) Diagnosis: Menorrhagia with regular cycle Fibroids Surgeons: Savannah Gomez DO Responsible Provider: Nikolas Mcmullen MD Anesthesia Type: general ASA Status: 3 Anesthesia Type: general Last vitals Vitals Value Taken Time BP 123/83 12/25/20 0900 Temp 36 ?C (96.8 ?F) 12/25/20 0831 HR SpO2 64 12/25/20 0911 Resp 31 12/25/20 0911 SpO2 98 % 12/25/20 0911 Vitals shown include unvalidated device data. Post Anesthesia Patient Status Anticipated Disposition: phase 2 then home. Neurological Status: aware and responsive. Pulmonary Status: breathing comfortably on room air Airway Control: returned to baseline unsupported. Cardiovascular Status: stable. Pain Management: clinically adequate Postoperative Hydration: acceptable. Intraoperative Events: no significant anesthesia events Post Operative Nausea/Vomiting Status: no significant post operative nausea or vomiting Anesthetic Observations: Recommendation: continue current plan of care. No complications documented. SIGNATURE: Yfn Spears MD PATIENT NAME: Tierra Malcolm DATE: December 25, 2020 TIME: 9:48 PM CSN: [id number] [facility] ANES PRE-OPon 12-25-2020 ANES PRE-OP HNO ID: [id number] Author: Nikolas Mcmullen MD Service: Anesthesiology Author Type: Physician Type: Anesthesia Preprocedure Evaluation Filed: 12/25/2020 7:15 AM Note Text: ANESTHESIOLOGY DAY OF SURGERY NOTE : 1975 Procedure(s) (LRB): HYSTEROSCOPY WITH ENDOMETRIAL ABLATION (N/A) DILATION AND CURETTAGE (N/A) Surgeon(s): Savannah Gomez DO Estimated body mass index is 31.18 kg/m? as calculated from the following: Height as of 11/27/20: 160 cm (5' 3). Weight as of 11/27/20: 79.8 kg (176 lb). Most recent hematocrit and potassium results: Hematocrit 35.1 08/10/2020 Potassium 4.2 08/10/2020 Relevant Problems No relevant active problems I - PHYSICAL EVALUATION AIRWAY Patient intubated: No. Tracheostomy tube not present Mallampati: II. TM distance: >3 FB. Neck ROM: full ROM without neurological symptoms. Mouth opening: adequate. Short neck: no. Thick neck: no DENTAL Dental findings: teeth intact. Additional exam findings: no II - ANESTHESIA PLAN ASA Score: 3 Anesthetic Plan: general Airway type: LMA The patient is not a current smoker. NPO Status: adequate Monitoring plan: standard ASA. Postoperative analgesic plan: parenteral or oral opioids. Anesthetic Risks, Benefits, Alternatives, Personnel Discussed. Consent obtained from: patient.Patient / Surrogate agrees to blood products: blood products not planned Significant changes in the patient condition since the History and Physical, not otherwise documented in primary service progress note: no. Potential Anesthesia issues that may suggest increased risk of complications or contraindication to planned procedure: none. Vitals Value Taken Time BP 118/81 12/25/20 0643 Pulse Resp Temp 36.5 ?C (97.7 ?F) 12/25/20 0643 SpO2 Facility-Administered Medications as of 12/25/2020 Medication Dose Route Frequency - lidocaine 10 mg/mL (1 %) 1-2 mg injection (XYLOCAINE) 0.1-0.2 mL INTRADERMAL PRN - lactated ringers iv infusion 5-30 mL/hr INTRAVENOUS CONTINUOUS - [COMPLETED] acetaminophen 975 mg tab(s) (TYLENOL) 975 mg ORAL Pre-Op Once - [COMPLETED] celecoxib 400 mg cap(s) (CeleBREX) 400 mg ORAL Pre-Op Once - [COMPLETED] gabapentin 600 mg cap(s) (NEURONTIN) 600 mg ORAL Pre-Op Once Outpatient Medications as of 12/25/2020 Medication Sig - rosuvastatin (CRESTOR) 10 mg tablet Take 10 mg by mouth once daily. - predniSONE 10 mg tablet pack Take 15 mg by mouth once daily. - Zinc 50 mg tab Take 50 mg by mouth once daily. - VITAMIN A ORAL Take by mouth. - ascorbic acid (VITAMIN C ORAL) Take 500 mg by mouth once daily. - cholecalciferol, vitamin D3, (VITAMIN D3 ORAL) Take 50,000 mg by mouth one time a week. - ORENCIA CLICKJECT 125 mg/mL I have interviewed and examined the patient. I have reviewed the medical record and/or the pre-anesthesia evaluation, pertinent labs, and test results. This contains updated information obtained within 48 hours of Surgery/Procedure. SIGNATURE: Nikolas Mcmullen MD PATIENT NAME: Tierra Malcolm DATE: December 25, 2020 TIME: 7:15 AM CSN: [id number] [facility] HISTORY PHYSICALon HISTORY PHYSICAL HNO ID: [id number] Author: Karina Peng DO Service: Gynecology Author Type: Resident Type: HANDP Filed: 12/25/2020 7:25 AM Note Text: Attestation signed by Savannah Gomez DO at 12/25/2020 8:42 AM Attending Note I personally saw and examined the patient. I reviewed the resident's note. I agree with the resident's assessment and plan unless otherwise noted. Signature: Savannah Gomez DO UPDATED HISTORY AND PHYSICAL EXAMINATION SERVICE DATE: 12/25/2020 SERVICE TIME: 7:25 AM PHYSICAL EXAM MUST BE COMPLETED ON ADMISSION The History and Physical (completed in the past 30 days) has been reviewed and the patient has been examined. The contents accurately reflect the patient's condition with the following additions or revisions since the HANDP was completed. Examination indicates no changes. This HANDP can be found in the Electronic Medical Record dated 11/27/20. SIGNATURE: Karina Peng DO PATIENT NAME: Tierra Malcolm DATE: December 25, 2020 TIME: 7:25 AM [facility] OPERATIVE NOon 12-25-2020 OPERATIVE NO HNO ID: [id number] Author: Karina Peng DO Service: Gynecology Author Type: Resident Type: Operative Report Filed: 12/25/2020 8:37 AM Note Text: Attestation signed by Savannah Gomez DO at 12/25/2020 8:42 AM Attestation: I was present for the critical and asencio portions of the surgery and I was immediately available to provide assistance. Signature: Savannah Gomez DO TELECOMMUNICATIONS FIELD TECHNICIAN OPERATIVE/PROCEDURE REPORT LOG ID: [id number] Surgery/Procedure Date: 12/25/2020 Incision/Procedure Start Time: 8:09 AM Incision Close/Procedure End Time: 8:23 AM Surgeon(s)/Proceduralis t(s) and Cream Tester(s): Surgeon(s) and Role: * Savannah Gomez, DO - Primary * Karina Peng, DO - Resident - Assisting Informed Consent: Informed Consent obtained and on the chart Procedure: Hysteroscopy with DANDC and Endometrial ablation Pre-Op/Pre-Procedure Diagnosis: Heavy vaginal bleeding Post-Op/Post-Procedure Diagnosis: Same as pre-op diagnosis Antibiotic: None Procedure Details: Patient was taken to the operating room where the sign-in and time out were completed. General anesthesia was induced and found to be adequate. She was placed in dorsal lithotomy position with her feet in [place] stirrups with careful attention not to hyperflex or hyperextend the knees or hips. SCDs were placed and turned on for DVT prophylaxis. Examination under anesthesia was performed to ascertain the position of the uterus which noted to be anteverted. Patient was prepped and draped in the usual fashion. A weighted speculum was placed in the patient's vagina with clear visualization of the cervix. The anterior lip of the cervix was grasped with a single tooth tenaculum. Cervix was dilated to allow passage of the Joi. A 5 mm 0-degree hysteroscope was introduced under direct visualization, and the uterus was distended with normal saline. Fluid deficit was minimal. The hysteroscope was then used for initial survey revealing below findings. The uterine cavity was well visualized. The fallopian tube ostia were difficult to visualize secondary to proliferative endometrium. Findings: Endometrium: Thickened endometrium Endometrial cavity: Normal Polyps: No polyps Fibroids: None easily visualized Other: None Additional techniques Include: DANDC: A curette was introduced into the uterus without difficulty. A sharp curettage was performed gently. The endometrium curettings were collected on a telfa dressing. JOI ENDOMETRIAL ABLATION: The cavity length (6.5 cm) was determined after finding the sounding length (8.5 cm) as well as the cervical length (2.5 cm). The Joi device was then placed intrauterine and engaged. The device was gently moved with anterior, posterior and lateral movements and advanced to the fundus. The array opening indicator was noted to be in the green zone. The cervical sealing balloon was inflated to seal the uterine cavity. The uterine integrity test was then performed, which passed on the first attempt. The device was then engaged for 2 minutes. After the cycle was completed, the cervical sealing balloon was deflated and the device was removed. All instruments were removed from vagina and uterine cavity. Sign-out was completed. Distention Media: Normal Saline IV Fluids: 700cc LR Urine Output: 50 mL, clear yellow Estimated Blood Loss: < 10 mL Specimens: Endometrial curettings Implantable Devices: None Drains: None Complications: None A digital sweep of the vaginal canal was performed by the Resident and it was ascertained that no instruments or other foreign bodies are retained within the cavity. Sponge, lap, and needle counts were correct times two and the patient was taken to the recovery room with stable vital signs after tolerating the procedure well. Resident performed the procedure, under direct supervision and the remainder of the procedure was performed by the primary surgeon/proceduralist with assistance. SIGNATURE: Karina Peng DO PATIENT NAME: Tierra Malcolm DATE: December 25, 2020 TIME: 8:34 AM PAGER/CONTACT #: [facility] SURGICAL PATHOLOGYon 12-25- 021 CASE REPORT [facility] Comment on above: Order Comment: Speci men Type: BLOOD SPECIMEN Result Comment: Surg ical Pathology Report Case: [id number] Authorizing Provider: Savannah Gomez DO Collected: 12/25/2020 08:17 AM Ordering Location: [place] [facility] Received: 12/25/2020 01:00 PM Pathologist: Naseem Tse MD Specimen: ENDOMETRIUM CURETTINGS Performed By: #### H STNT #### [facility] CLIA [id number] [address] [place] [address] STATES OF [facility] FINAL DIAGNOSIS [facility] Comment on above: Order Comment: Speci men Type: BLOOD SPECIMEN Result Comment: Endo metrial curettings - Menstrual phase endometrium. No associated hyperplastic or neoplastic process is identified. Performed By: #### H STNT #### [facility] CLIA [id number] [address] [place], [place] [id number] [place] OF [place] FINAL PERFORMING LAB [facility] Comment on above: Order Comment: Speci men Type: BLOOD SPECIMEN Result Comment: Diag nostic interpretation performed at [facility], [address] [place] [address] CLIA# [id number] [place] Runner: Adam Lopez M.D. Performed By: #### H STNT #### [facility] CLIA [id number] [address] [place] [id number] [place] GROSS DESCRIPTION [facility] Comment on above: Order Comment: Speci men Type: BLOOD SPECIMEN Result Comment: A. E NDOMETRIUM CURETTINGS. Received in formalin labeled endometrium curettings are multiple pink-red soft and feathery tissue fragments admixed with clotted blood and mucus aggregating to 4.5 x 2.3 x 0.3 cm. Totally submitted in 3 cassettes. RSA/kls Gross examination performed at [facility], [address] [place] [address] CLIA# [id number] Performed By: #### H STNT #### [facility] CLIA [id number] [address] [place], [place] [id number] [place] PreOp/PreProc COVIDon 2020 SARS-CoV-2 (COVID-19) RNA FRANCES+probe Ql (Unsp spec) UPPER RESPIRATORY TRACT SWAB [facility] Comment on above: Performed By: #### P OCOVD #### [facility] [address] [place] [place], [place] [address] SARS-CoV-2 (COVID-19) RNA FRANCES+probe Ql (Unsp spec) Negative for COVID19 (SARS CoV2) by RT-PCR or equivalent method. Normal Negative for COVID19 (SARS CoV2) by RT-PCR or equivalent method. [facility] Comment on above: Result Comment: This test was developed and its performance characteristics determined by [facility]'s [facility] [place]. This test has been authorized by FDA under an Emergency Use Authorization (EUA). This test has been validated in accordance with the FDA's Guidance Document Policy for Diagnostics Testing in Laboratories Certified to Perform High Complexity Testing under CLIA prior to Emergency use Authorization for Coronavirus Disease 2019 during the Public Health Emergency issued on September 10, 2019. Test performed by [facility], [facility] [place], [facility] [place] [address]. Performed By: #### P OCOVD #### [place] [address] CNOVon 11-27-2020 CNOV Office Visit (AGOBST ) TIERRA MALCOLM ([id number]) 1975 F Date Time Provider Department 11/27/20 1:45 PM SAVANNAH GOMEZ During your visit today, we recorded the following information about you: Blood pressure Weight Height Last Period 117/81 79.8 kg 1.6 m 11/01/20 Maria Isabel Connor LPN 11/27/2020 1:44 PM Signed Pt appt to sign electronic surgical consent. CINTHIA Pedersen DO 11/27/2020 1:52 PM Signed Tierra Malcolm is a 45 year old female who presents with a chief complaint of Pre-Op Visit (Sign surgery consent) SUBJECTIVE Patient presents for preop for her [facility] hysteroscopy and endometrial ablation. We went over the risk, benefits, the major minor complications, signed consent form. 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 - Rheumatoid arthritis (HCC) PAST SURGICAL HISTORY Procedure Laterality Date - BREAST BIOPSY Left 01/2020 - PAST SURGICAL HISTORY OF right hand repair - PAST SURGICAL HISTORY OF tonsillectomy - PAST SURGICAL HISTORY OF Social History Tobacco Use - Smoking status: Never Smoker - Smokeless tobacco: Never Used Vaping Use - Vaping Use: Never used Substance Use Topics - Alcohol use: No Comment: once a year - Drug use: No FAMILY HISTORY Problem Relation Age of Onset - Colon Cancer Father - Skin Cancer Mother Obstetric History T0 L0 SAB0 TAB0 Ectopic0 Multiple0 Live Births0 OBJECTIVE ALLERGIES No Known Allergies Current Outpatient Medications Medication Sig - rosuvastatin (CRESTOR) 10 mg tablet Take 10 mg by mouth once daily. - predniSONE 10 mg tablet pack Take 15 mg by mouth once daily. - Zinc 50 mg tab Take 50 mg by mouth once daily. - VITAMIN A ORAL Take by mouth. - ascorbic acid (VITAMIN C ORAL) Take 500 mg by mouth once daily. - cholecalciferol, vitamin D3, (VITAMIN D3 ORAL) Take 50,000 mg by mouth one time a week. - predniSONE (DELTASONE) 10 mg tablet TAKE THREE TABLETS BY MOUTH ONCE DAILY FOR 10 DAYS THEN TAKE TWO TABLETS ONCE DAILY FOR 10 DAYS THEN TAKE ONE AND ONE HALF TABLET DAILY UNTI - predniSONE (DELTASONE) 20 mg tablet TAKE 4 TABLETS BY MOUTH ONCE DAILY FOR 3 DAYS THEN 3 TABS ONCE DAILY FOR 3 DAYS THEN 2 TABS ONCE DAILY FOR 3 DAYS THEN 1 TAB DAILY FOR 3 DAY - ubidecarenone/vitamin E mixed (COQ10 SG 100 ORAL) Take 100 mg by mouth once daily. (Patient not taking: Reported on 11/27/2020 ) - dexAMETHasone (DECADRON) 4 mg tablet Take 1 tablet by mouth daily with breakfast. - albuterol HFA (PROVENTIL HFA, VENTOLIN HFA) 90 mcg/actuation inhaler Inhale 2 Puffs as instructed every 4 hours as needed for Wheezing/Shortness of Breath. - ENBREL SURECLICK 50 mg/mL (1 mL) 1 mL one time a week. - leucovorin (LEUCOVORIN) 5 mg tablet 5 mg every Thursday. - methotrexate 2.5 mg tablet 2.5 mg every Thursday. 8 tabs No current facility-administered medications for this visit. Review of Systems Constitutional: Denies weight loss, weight gain, fever Eyes: Negative vision changes ENT/Mouth: No ulcers, sinusitis, tinnitus Cardiovascular: Denies LEYVA, Edema, palpitations, chest pain Respiratory: Denies wheezing, hemoptysis, SOB, cough Gastrointestinal: Denies diarrhea, bloody stool, constipation Genitourinary: See HPI Musculoskeletal: Denies muscle weakness Skin/breast: Denies discharge, masses, rash, ulcers Neurological: Denies syncope, seizures, numbness Physical Exam BP 117/81 Ht 5' 3 (1.60m) Wt 176 lb (79.8kg) LMP 11/01/2020 BMI 31.18 kg/(m2). General: No Acute Distress, Well nourished, Well developed, No obvious deformities and Alert/Oriented x 3 Mood/Affect: Normal HEENT: Normocephalic, Atraumatic and Grossly Within Normal Limits CV: RRR and No murmurs Pulmonary: Clear to auscultation and Equal breath sounds GI: Abdomen soft, non-tender, no masses, Liver/spleen non-palpable, No hernias and Normoactive bowel sounds Skin: Intact, no lesions ASSESSMENT/PLAN: 1. Menorrhagia with irregular cycle - ICD9: 626.2, ICD10: N92.1 Consent signed and ready for surgery Savannah Gomez DO Referring Provider: SAVANNAH GOMEZ [[id number]] Allergies As of Date: 11/27/2020 (No Known Allergies) Date Reviewed: 11/27/2020 Reviewed by: Maria Isabel Connor LPN - Fully Assessed Reason for Visit: Pre-Op Visit [1235] Cmt: Sign surgery consent Primary Visit Diagnosis:Menorrhagia with irregular cycle [N92.1] Prescriptions as of 11/27/2020 Sig: ROSUVASTATIN 10 MG TABLET Take 10 mg by mouth once felicia* PREDNISONE 10 MG TABLETS IN A* Take 15 mg by mouth once felicia* ZINC 50 MG TABLET Take 50 mg by mouth once felicia* VITAMIN A ORAL Take by mouth. VITAMIN C ORAL Take 500 mg by mouth once sangeetha* VITAMIN D3 ORAL Take 50,000 mg by mouth one t* PREDNISONE 10 MG TABLET TAKE THREE TABLETS BY MOUTH O* PREDNISONE 20 MG TA (more content not included)... [facility] ([facility] TIERRA MALCOLM ([id number]) 1975 F Date Time Provider Department 11/08/20 SAVANNAH GOMEZ During your visit today, we recorded the following information about you: Raegan Blanchard RN 11/08/2020 12:02 PM Signed Pt calling-seen 10/29/2020 by KAYLEY for consult ablation-pt had TVUS completed 11/06/2020, results available for review in [place]. Please review and advise. Savannah Gomez DO 11/08/2020 1:42 PM Signed Small fibroid but ablation should work well I'll have Jaida set it up and call her DO Raegan Sims RN 11/08/2020 2:05 PM Signed Spoke with pt-aware of results/recommendations . Allergies As of Date: 11/08/2020 (No Known Allergies) Date Reviewed: 10/29/2020 Reviewed by: Wendy Ko Ma - Fully Assessed Reason for Visit: Follow Up Tests Results [770] Prescriptions as of 11/08/2020 Sig: ROSUVASTATIN 10 MG TABLET Take 10 mg by mouth once felicia* PREDNISONE 10 MG TABLETS IN A* Take by mouth once daily. PREDNISONE 10 MG TABLET TAKE THREE TABLETS BY MOUTH O* PREDNISONE 20 MG TABLET TAKE 4 TABLETS BY MOUTH ONCE * ZINC 50 MG TABLET Take 50 mg by mouth once felicia* COQ10 SG 100 ORAL Take 100 mg by mouth once sangeetha* DEXAMETHASONE 4 MG TABLET Take 1 tablet by mouth daily * ALBUTEROL SULFATE HFA 90 MCG/* Inhale 2 Puffs as instructed * ENBREL SURECLICK 50 MG/ML (1 * 1 mL one time a week. VITAMIN A ORAL Take by mouth. VITAMIN C ORAL Take 500 mg by mouth once sangeetha* VITAMIN D3 ORAL Take 50,000 mg by mouth one t* LEUCOVORIN CALCIUM 5 MG TABLET 5 mg every Thursday. METHOTREXATE SODIUM 2.5 MG TA* 2.5 mg every Thursday. 8 tabs Problem List As Of Date: 11/08/2020 (None) Encounter Status:Closed by SAVANNAH GOMEZ on 11/08/20 [facility] US FEMALE PELVIS TRANSABD LT Don 11-06-2020 US FEMALE PELVIS TRANSABD LTD * * *Final Report* * * DATE OF EXAM: Nov 06 2020 9:02AM LDU 1059 - US FEMALE PELVIS TRANSABD LTD / PROCEDURE REASON: menorrhagia * * * * Physician Interpretation * * * * EXAMINATION: TRANSVAGINAL AND LIMITED TRANSABDOMINAL PELVIC ULTRASOUND CLINICAL HISTORY: Menorrhagia, abnormal uterine bleeding TECHNIQUE: Sonography of the pelvis was performed by transvaginal and transabdominal (limited) techniques. Images were obtained and stored in a permanent archive. MQ: UFP_1 COMPARISON: None RESULT: Uterus size: 8.9 x 4.8 x 4.2 cm -Orientation: Anteverted -Myometrium: 0.5 x 0.4 x 0.3 cm hyperechoic structure seen along the endometrium in the posterior upper uterine body. -Endometrial echo complex: 0.7 cm -Cervix: Nabothian cysts. Right ovary: 2.0 x 1.3 x 1.5 cm Normal sonographic appearance. Arterial and venous flow is present throughout the ovary on color Doppler imaging with normal spectral waveforms. Left ovary: 4.2 x 2.8 x 1.4 cm Multiple cysts with simple appearance up to 1.6 cm. Arterial and venous flow is present throughout the left ovary on color Doppler imaging with normal spectral waveforms. Pelvis free fluid: None shown. IMPRESSION: 0.5 cm structure within the upper uterine body most likely a fibroid. Vehicle Operator: PSCB Transcribe Date/Time: Nov 06 2020 3:52P Dictated by : APRIL MADISON MD This examination was interpreted and the report reviewed and electronically signed by: APRIL MADISON MD on Nov 06 2020 3:58PM EST [id number] [facility] US FEMALE PELVIS TRANSVAGon 11-06-2020 US FEMALE PELVIS TRANSVAG * * *Final Report* * * DATE OF EXAM: Nov 06 2020 9:02AM LDU 1060 - US FEMALE PELVIS TRANSVAG / PROCEDURE REASON: menorrhagia * * * * Physician Interpretation * * * * EXAMINATION: TRANSVAGINAL AND LIMITED TRANSABDOMINAL PELVIC ULTRASOUND CLINICAL HISTORY: Menorrhagia, abnormal uterine bleeding TECHNIQUE: Sonography of the pelvis was performed by transvaginal and transabdominal (limited) techniques. Images were obtained and stored in a permanent archive. MQ: UFP_1 COMPARISON: None RESULT: Uterus size: 8.9 x 4.8 x 4.2 cm -Orientation: Anteverted -Myometrium: 0.5 x 0.4 x 0.3 cm hyperechoic structure seen along the endometrium in the posterior upper uterine body. -Endometrial echo complex: 0.7 cm -Cervix: Nabothian cysts. Right ovary: 2.0 x 1.3 x 1.5 cm Normal sonographic appearance. Arterial and venous flow is present throughout the ovary on color Doppler imaging with normal spectral waveforms. Left ovary: 4.2 x 2.8 x 1.4 cm Multiple cysts with simple appearance up to 1.6 cm. Arterial and venous flow is present throughout the left ovary on color Doppler imaging with normal spectral waveforms. Pelvis free fluid: None shown. IMPRESSION: 0.5 cm structure within the upper uterine body most likely a fibroid. Vehicle Operator: PSCB Transcribe Date/Time: Nov 06 2020 3:52P Dictated by : APRIL MADISON MD This examination was interpreted and the report reviewed and electronically signed by: APRIL MADISON MD on Nov 06 2020 3:58PM EST [id number] [facility] CNOVon 10-29-2020 CNOV Office Visit (ALEKSANDARBST ) TIERRA MALCOLM ([id number]) 1975 F Date Time Provider Department 10/29/20 3:00 PM SAVANNAH GOMEZ During your visit today, we recorded the following information about you: Blood pressure Weight Height Last Period 139/79 79.8 kg 1.6 m 10/10/20 Savannah Gomez DO 10/29/2020 3:08 PM Signed Tierra Alek Malcolm is a 45 year old female who presents with a chief complaint of Consult (consult for ablation) SUBJECTIVE Patient presents as a consult from Dr. Mae for heavy periods. She is due periods are very heavy with a lot of clotting for about 5 days every month. She has been having this problem for some time. She is not on any control at this time. He sent her over for possible endometrial ablation. She has not had an ultrasound done that is up-to-date. She just had her yearly annual from Dr. Mae. 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 - Rheumatoid arthritis (HCC) PAST SURGICAL HISTORY Procedure Laterality Date - BREAST BIOPSY Left 01/2020 - PAST SURGICAL HISTORY OF right hand repair - PAST SURGICAL HISTORY OF tonsillectomy - PAST SURGICAL HISTORY OF Social History Tobacco Use - Smoking status: Never Smoker - Smokeless tobacco: Never Used Vaping Use - Vaping Use: Never used Substance Use Topics - Alcohol use: No Comment: once a year - Drug use: No FAMILY HISTORY Problem Relation Age of Onset - Colon Cancer Father - Skin Cancer Mother Obstetric History T0 L0 SAB0 TAB0 Ectopic0 Multiple0 Live Births0 OBJECTIVE ALLERGIES No Known Allergies Current Outpatient Medications Medication Sig - rosuvastatin (CRESTOR) 10 mg tablet Take 10 mg by mouth once daily. - predniSONE 10 mg tablet pack Take by mouth once daily. - predniSONE (DELTASONE) 10 mg tablet TAKE THREE TABLETS BY MOUTH ONCE DAILY FOR 10 DAYS THEN TAKE TWO TABLETS ONCE DAILY FOR 10 DAYS THEN TAKE ONE AND ONE HALF TABLET DAILY UNTI - predniSONE (DELTASONE) 20 mg tablet TAKE 4 TABLETS BY MOUTH ONCE DAILY FOR 3 DAYS THEN 3 TABS ONCE DAILY FOR 3 DAYS THEN 2 TABS ONCE DAILY FOR 3 DAYS THEN 1 TAB DAILY FOR 3 DAY - Zinc 50 mg tab Take 50 mg by mouth once daily. - ubidecarenone/vitamin E mixed (COQ10 SG 100 ORAL) Take 100 mg by mouth once daily. - VITAMIN A ORAL Take by mouth. - ascorbic acid (VITAMIN C ORAL) Take 500 mg by mouth once daily. - cholecalciferol, vitamin D3, (VITAMIN D3 ORAL) Take 50,000 mg by mouth one time a week. - dexAMETHasone (DECADRON) 4 mg tablet Take 1 tablet by mouth daily with breakfast. - albuterol HFA (PROVENTIL HFA, VENTOLIN HFA) 90 mcg/actuation inhaler Inhale 2 Puffs as instructed every 4 hours as needed for Wheezing/Shortness of Breath. - ENBREL SURECLICK 50 mg/mL (1 mL) 1 mL one time a week. - leucovorin (LEUCOVORIN) 5 mg tablet 5 mg every Thursday. - methotrexate 2.5 mg tablet 2.5 mg every Thursday. 8 tabs No current facility-administered medications for this visit. Review of Systems Constitutional: Denies weight loss, weight gain, fever Eyes: Negative vision changes ENT/Mouth: No ulcers, sinusitis, tinnitus Cardiovascular: Denies LEYVA, Edema, palpitations, chest pain Respiratory: Denies wheezing, hemoptysis, SOB, cough Gastrointestinal: Denies diarrhea, bloody stool, constipation Genitourinary: See HPI Musculoskeletal: Denies muscle weakness Skin/breast: Denies discharge, masses, rash, ulcers Neurological: Denies syncope, seizures, numbness Physical Exam BP 139/79 Ht 5' 3 (1.60m) Wt 176 lb (79.8kg) LMP 10/10/2020 BMI 31.18 kg/(m2). General: No Acute Distress, Well nourished, Well developed, No obvious deformities and Alert/Oriented x 3 Mood/Affect: Normal HEENT: Normocephalic, Atraumatic and Grossly Within Normal Limits GI: Abdomen soft, non-tender, no masses, Liver/spleen non-palpable, No hernias and Normoactive bowel sounds Skin: Intact, no lesions ASSESSMENT/PLAN: 1. Menorrhagia with regular cycle - ICD9: 626.2, ICD10: N92.0 Obtain an ultrasound at [facility] and possibly set up surgery after the results have come back - PELVIC US [facility] Savannah Gomez DO Referring Provider: SELF [200] Allergies As of Date: 10/29/2020 (No Known Allergies) Date Reviewed: 10/29/2020 Reviewed by: Wendy Ko Ma - Fully Assessed Reason for Visit: Consult [173] Cmt: consult for ablation Primary Visit Diagnosis:Menorrhagia with regular cycle [N92.0] Order(s):PELVIC US [facility] [[id number]] Order #: [id number]: 1 Prescriptions as of 10/29/2020 Sig: ROSUVASTATIN 10 MG TABLET Take 10 mg by mouth once felicia* PREDNISONE 10 MG TABLETS IN A* Take by mouth once daily. PREDNISONE 10 MG TABLET TAKE THREE TABLETS BY MOUTH O* PREDNISONE 20 MG TABLET TAKE 4 TABLETS BY MOUTH ONCE * ZINC 50 MG TABLE (more content not included)... [facility] CNOVon 10-22-2020 CNOV Office Visit (DORENE JOHNSON) TIERRA MALCOLM ([id number]) 1975 F Date Time Provider Department 10/22/20 10:15 AM HARINDER MAE During your visit today, we recorded the following information about you: Temperature Pulse Respiration Blood pressure 98.1 degrees 87/minute 16/minute 137/74 Weight Height Last Period 78.9 kg 1.6 m 10/09/20 NELDA ACOSTA RN, RN 10/22/2020 10:07 AM Signed Pt here for pap test denies any issues or pain Harinder Mae MD 10/22/2020 10:41 AM Signed Tierra Gaston Gold is a 45 year old female who presents for annual exam. Breast biopsy negative a year ago. Periods regular every month but getting heavier. S/P TL. HCT 35. Discussed endometrial ablation. Will call Dr. Gomez for ablation if she desires. Due for pap and mammogram. ALLERGIES No Known Allergies Current Outpatient Medications Medication Sig - predniSONE 10 mg tablet pack Take by mouth once daily. - Zinc 50 mg tab Take 50 mg by mouth once daily. - dexAMETHasone (DECADRON) 4 mg tablet Take 1 tablet by mouth daily with breakfast. - albuterol HFA (PROVENTIL HFA, VENTOLIN HFA) 90 mcg/actuation inhaler Inhale 2 Puffs as instructed every 4 hours as needed for Wheezing/Shortness of Breath. - ENBREL SURECLICK 50 mg/mL (1 mL) 1 mL one time a week. - VITAMIN A ORAL Take by mouth. - ascorbic acid (VITAMIN C ORAL) Take 500 mg by mouth once daily. - cholecalciferol, vitamin D3, (VITAMIN D3 ORAL) Take 50,000 mg by mouth one time a week. - leucovorin (LEUCOVORIN) 5 mg tablet 5 mg every Thursday. - methotrexate 2.5 mg tablet 2.5 mg every Thursday. 8 tabs - predniSONE (DELTASONE) 10 mg tablet TAKE THREE TABLETS BY MOUTH ONCE DAILY FOR 10 DAYS THEN TAKE TWO TABLETS ONCE DAILY FOR 10 DAYS THEN TAKE ONE AND ONE HALF TABLET DAILY UNTI - predniSONE (DELTASONE) 20 mg tablet TAKE 4 TABLETS BY MOUTH ONCE DAILY FOR 3 DAYS THEN 3 TABS ONCE DAILY FOR 3 DAYS THEN 2 TABS ONCE DAILY FOR 3 DAYS THEN 1 TAB DAILY FOR 3 DAY - ubidecarenone/vitamin E mixed (COQ10 SG 100 ORAL) Take 100 mg by mouth once daily. No current facility-administered medications for this visit. 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 - Rheumatoid arthritis (HCC) PAST SURGICAL HISTORY Procedure Laterality Date - BREAST BIOPSY Left 01/2020 - PAST SURGICAL HISTORY OF right hand repair - PAST SURGICAL HISTORY OF tonsillectomy - PAST SURGICAL HISTORY OF Social History Tobacco Use - Smoking status: Never Smoker - Smokeless tobacco: Never Used Vaping Use - Vaping Use: Never used Substance Use Topics - Alcohol use: No Comment: once a year - Drug use: No FAMILY HISTORY Problem Relation Age of Onset - Colon Cancer Father - Skin Cancer Mother Review of Symptoms negative Objective BP 137/74 Pulse 87 Temp 98.1 Resp 16 Ht 5' 3 (1.60m) Wt 174 lb (78.9kg) SpO2 100% LMP 10/09/2020 BMI 30.83 kg/(m2). 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 Encounter for annual routine gynecological examination - ICD9: V72.31, ICD10: Z01.419 (primary diagnosis) - Completed pelvic and breast exam - Encouraged monthly BSE - Follow up for annual exam in one year. 2. Encounter for screening mammogram for malignant neoplasm of breast - ICD9: V76.12, ICD10: Z12.31 - Completed pelvic and breast exam - Encouraged monthly BSE - Follow up for annual exam in one year. - MARTHA SCREENING 3. Encounter for Papanicolaou smear for cervical cancer screening - ICD9: V76.2, ICD10: Z12.4 - Completed pelvic and breast exam - Encouraged monthly BSE - Follow up for annual exam in one year. 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 #:[id number] Prescriptions as of 10/22/2020 Sig: PREDNISONE 10 MG TABLETS IN A* Take by mouth once daily. ZINC 50 MG TABLET Take 50 mg by mouth once felicia* DEXAMETHASONE 4 MG TABLET Take 1 tablet by mouth daily * ALBUTEROL SUL (more content not included)... Normal [facility] PAP FLUID CERVICAL SCREENING on 10-22-2020 CASE REPORT Normal [facility] Comment on above: Order Comment: Speci men Type: FLUID SAMPLE Result Comment: Gyne cologic Cytology Report Case: [id number] Authorizing Provider: Harinder Mae Collected: 10/22/2020 10:40 AM Ordering Location: [facility] Obstetrics & Received: 10/23/2020 05:09 AM Gynecology First Screen: Alexia (Ct Ascp) Radha Specimen: PAP MANUAL SCREENING, CERVICAL SCREENING FLUID Performed By: #### L [id number] #### [facility] CLIA [id number] [address] [place] [address] CLINICAL HISTORY ROUTINE EXAM Normal [facility] Comment on above: Order Comment: Speci men Type: FLUID SAMPLE Performed By: #### L [id number] #### [facility] CLIA [id number] [address] [place] [address] CYTOLOGY INTERPRETATION PAP Normal [facility] Comment on above: Order Comment: Speci men Type: FLUID SAMPLE Result Comment: Nega tive for Intraepithelial lesion or malignancy. Performed By: #### L [id number] #### [facility] CLIA [id number] [address] [place] [address] FINAL DIAGNOSIS Normal [facility] Comment on above: Order Comment: Speci men Type: FLUID SAMPLE Result Comment: A - CERVICAL SCREENING FLUID Satisfactory for interpretation, No endocervical component Negative for Intraepithelial lesion or malignancy. Performed By: #### L [id number] #### [facility] CLIA [id number] [address] [place] [address] FINAL PERFORMING LAB Normal [facility] Comment on above: Order Comment: Speci men Type: FLUID SAMPLE Result Comment: Tech nical component, equalizer operator screening performed at [facility], [address] [place] [address] CLIA# [id number] Diagnostic interpretation performed at [facility], [address] [place] [address] CLIA# [id number] Groover Runner: Adam Lopez M.D. Performed By: #### L [id number] #### [facility] CLIA [id number] [address] [place] [address] HPV REQUESTED? Yes, Reflex HPV for ASCUS Normal [facility] Comment on above: Order Comment: Speci men Type: FLUID SAMPLE Performed By: #### L [id number] #### [facility] CLIA [id number] [address] [place] [address] LMP 10/09/2020 Normal [facility] Comment on above: Order Comment: Speci men Type: FLUID SAMPLE Performed By: #### L [id number] #### [facility] CLIA [id number] [address] [place] [address] PAP DISCLAIMER COMMENT The Pap Smear is a screening test for cervical cancer. False negative results occur with all screening tests, emphasizing the need for rescreening at recommended intervals, and clinical correlation. Normal [facility] Comment on above: Order Comment: Speci men Type: FLUID SAMPLE Performed By: #### L [id number] #### [facility] CLIA [id number] [address] [place] [address] Basic metabolic 2000 panelon 08-10-2020 Anion gap [Moles/Vol] 10 mmol/L Normal 9-18 [facility] Comment on above: Order Comment: Speci men Type: BLOOD SPECIMEN Performed By: #### 2 4321-2, 60769-2 #### [facility] [place] [facility] CLIA [id number] [address] [facility] [place] [address] [place] Calcium [Mass/Vol] 9.4 mg/dL Normal 8.5-10.2 [facility] Comment on above: Order Comment: Speci men Type: BLOOD SPECIMEN Performed By: #### 2 4321-2, 96718-3 #### [facility] [place] [facility] CLIA [id number] [address] [place] [address] [place] Chloride [Moles/Vol] 103 mmol/L Normal 97-105 [facility] Comment on above: Order Comment: Speci men Type: BLOOD SPECIMEN Performed By: #### 2 4321-2, 81580-6 #### [facility] [place] [facility] CLIA [id number] [address] [place] [address] [place] CO2 [Moles/Vol] 24 mmol/L Normal 22-30 [facility] Comment on above: Order Comment: Speci men Type: BLOOD SPECIMEN Performed By: #### 2 4321-2, 13912-0 #### [facility] [place] [facility] CLIA [id number] [address] [place] [address] [place] Creatinine [Mass/Vol] 0.66 mg/dL Normal 0.58-0.96 [facility] Comment on above: Order Comment: Speci men Type: BLOOD SPECIMEN Performed By: #### 2 4321-2, 09779-2 #### [facility] [place] [facility] CLIA [id number] [address] [place] [address] [place] GFR/1.73 sq M.predicted among blacks MDRD (S/P/Bld) [Vol rate/Area] mL/min/{1.73_m2} Normal [facility] Comment on above: Order Comment: Speci men Type: BLOOD SPECIMEN Performed By: #### 2 4321-2, 06540-8 #### [facility] CLIA [id number] [address] [place] [address] [facility] GFR/1.73 sq M.predicted among non-blacks MDRD (S/P/Bld) [Vol rate/Area] mL/min/{1.73_m2} Normal [facility] Comment on above: Order Comment: Speci men Type: BLOOD SPECIMEN Result Comment: eGFR (Estimated GFR) Units of measure: mL/min/1.73 meters squared eGFR is derived from the reexpressed MDRD Study equation using the following parameters: serum creatinine, age, gender and race. The creatinine assay has been calibrated to be traceable to IDMS. An eGFR <60 mL/min/1.73m2 for >3 months is consistent with chronic kidney disease. Refer to KDOQI guidelines for clinical interpretation. In patients with unstable renal function, e.g. those with acute kidney injury, the eGFR may not accurately reflect actual GFR. Performed By: #### 2 4321-2, 09543-2 #### [facility] [place] [facility] CLIA [id number] [address] [place] [address] [facility] [place] Glucose [Mass/Vol] 91 mg/dL Normal 74-99 [facility] Comment on above: Order Comment: Speci men Type: BLOOD SPECIMEN Result Comment: The [place] Diabetes Association (ADA) provides guidance for cutoff values for fasting glucose and random glucose. The ADA defines fasting as no caloric intake for at least 8 hours. Fasting plasma glucose results between 100 to 125 mg/dL indicate increased risk for diabetes (prediabetes). Fasting plasma glucose results greater than or equal to 126 mg/dL meet the criteria for diagnosis of diabetes. In the absence of unequivocal hyperglycemia, results should be confirmed by repeat testing. In a patient with classic symptoms of hyperglycemia or hyperglycemic crisis, random plasma glucose results greater than or equal to 200 mg/dL meet the criteria for diagnosis of diabetes. Reference: Standards of Medical Care in Diabetes 2016, [place] [employer] Association. Diabetes Care. 2016.39(Suppl 1). Performed By: #### 2 4321-2, 39013-2 #### [facility] [place] [facility] CLIA [id number] [address] [place] [address] [place] Potassium [Moles/Vol] 4.2 mmol/L Normal 3.7-5.1 [facility] Comment on above: Order Comment: Speci men Type: BLOOD SPECIMEN Performed By: #### 2 4321-2, 80810-1 #### [facility] [place] [facility] CLIA [id number] [address] [place] [address] [place] [facility] Sodium [Moles/Vol] 137 mmol/L Normal 136-144 [facility] Comment on above: Order Comment: Speci men Type: BLOOD SPECIMEN Performed By: #### 2 4321-2, 49576-0 #### [facility] [place] [facility] CLIA [id number] [address] [place] [address] [place] [facility] Urea nitrogen [Mass/Vol] 11 mg/dL Normal 7-21 [facility] Comment on above: Order Comment: Speci men Type: BLOOD SPECIMEN Performed By: #### 2 4321-2, 74930-8 #### [facility] [place] [facility] CLIA [id number] [address] [place] [address] [place] CBC W Auto Differential pane l (Bld)on 08-10-2020 Basophils (Bld) [#/Vol] 0.03 10*3/uL Normal <0.11 [facility] Comment on above: Order Comment: Speci men Type: BLOOD SPECIMEN Performed By: #### 5 7021-8 #### [facility] [place] [facility] CLIA [id number] [address] [facility] [place] [address] [place] Basophils/100 WBC (Bld) 0.6 % Normal [facility] Comment on above: Order Comment: Speci men Type: BLOOD SPECIMEN Performed By: #### 5 7021-8 #### [facility] [place] [facility] CLIA [id number] [address] [place] [address] [facility] [place] Differential cell count method Nom (Bld) Auto Normal [facility] Comment on above: Order Comment: Speci men Type: BLOOD SPECIMEN Performed By: #### 5 7021-8 #### [facility] [place] [facility] CLIA [id number] [address] [place] [address] [facility] Eosinophils (Bld) [#/Vol] 0.14 10*3/uL Normal <0.46 [facility] Comment on above: Order Comment: Speci men Type: BLOOD SPECIMEN Performed By: #### 5 7021-8 #### [facility] [place] [facility] CLIA [id number] [address] [place] [address] [facility] [place] Eosinophils/100 WBC (Bld) 2.9 % Normal [facility] Comment on above: Order Comment: Speci men Type: BLOOD SPECIMEN Performed By: #### 5 7021-8 #### [facility] [place] [facility] CLIA [id number] [address] [place] [address] [facility] [place] Erythrocyte distribution width (RBC) [Ratio] 14.3 % Normal 11.5-15.0 [facility] Comment on above: Order Comment: Speci men Type: BLOOD SPECIMEN Performed By: #### 5 7021-8 #### [facility] [place] [facility] CLIA [id number] [address] [place] [address] [facility] [place] Hematocrit (Bld) [Volume fraction] 35.1 % Low 36.0-46.0 [facility] Comment on above: Order Comment: Speci men Type: BLOOD SPECIMEN Performed By: #### 5 7021-8 #### [facility] [place] [facility] CLIA [id number] [address] [place] [address] [place] Hemoglobin (Bld) [Mass/Vol] 11.7 g/dL Normal 11.5-15.5 [facility] Comment on above: Order Comment: Speci men Type: BLOOD SPECIMEN Performed By: #### 5 7021-8 #### [facility] [place] [facility] CLIA [id number] [address] [place] [address] [facility] [place] Lymphocytes (Bld) [#/Vol] 0.94 10*3/uL Low 1.00-4.00 [facility] Comment on above: Order Comment: Speci men Type: BLOOD SPECIMEN Performed By: #### 5 7021-8 #### [facility] [place] [facility] CLIA [id number] [address] [place] [address] [facility] Lymphocytes/100 WBC (Bld) 19.5 % Normal [facility] Comment on above: Order Comment: Speci men Type: BLOOD SPECIMEN Performed By: #### 5 7021-8 #### [facility] [place] [facility] CLIA [id number] [address] [place] [address] [place] MCH (RBC) [Entitic mass] 31.4 pg Normal 26.0-34.0 [facility] Comment on above: Order Comment: Speci men Type: BLOOD SPECIMEN Performed By: #### 5 7021-8 #### [facility] [place] [facility] CLIA [id number] [address] [place] [address] [place] MCHC (RBC) [Mass/Vol] 33.3 g/dL Normal 30.5-36.0 [facility] Comment on above: Order Comment: Speci men Type: BLOOD SPECIMEN Performed By: #### 5 7021-8 #### [facility] [place] [facility] CLIA [id number] [address] [place] [address] [place] MCV (RBC) [Entitic vol] 94.1 fL Normal 80.0-100.0 [facility] Comment on above: Order Comment: Speci men Type: BLOOD SPECIMEN Performed By: #### 5 7021-8 #### [facility] [place] [facility] CLIA [id number] [address] [facility] [place] [address] [place] Monocytes (Bld) [#/Vol] 0.86 10*3/uL Normal <0.87 [facility] Comment on above: Order Comment: Speci men Type: BLOOD SPECIMEN Performed By: #### 5 7021-8 #### [facility] [place] [facility] CLIA [id number] [address] [facility] [place] [address] [place] Monocytes/100 WBC (Bld) 17.8 % Normal [facility] Comment on above: Order Comment: Speci men Type: BLOOD SPECIMEN Performed By: #### 5 7021-8 #### [facility] [place] [facility] CLIA [id number] [address] [facility] [place] [address] [place] Neutrophils (Bld) [#/Vol] 2.86 10*3/uL Normal 1.45-7.50 [facility] Comment on above: Order Comment: Speci men Type: BLOOD SPECIMEN Performed By: #### 5 7021-8 #### [facility] [place] [facility] CLIA [id number] [address] [facility] [place] [address] [place] Neutrophils/100 WBC (Bld) 59.2 % Normal [facility] Comment on above: Order Comment: Speci men Type: BLOOD SPECIMEN Performed By: #### 5 7021-8 #### [facility] [place] [facility] CLIA [id number] [address] [facility] [place] [address] [place] PLATELET ESTIMATE Adequate Normal [facility] Comment on above: Order Comment: Speci men Type: BLOOD SPECIMEN Performed By: #### 5 7021-8 #### [facility] [place] [facility] CLIA [id number] [address] [facility] [place] [address] [place] Platelet mean volume (Bld) [Entitic vol] 9.7 fL Normal 9.0-12.7 [facility] Comment on above: Order Comment: Speci men Type: BLOOD SPECIMEN Performed By: #### 5 7021-8 #### [facility] [place] [facility] CLIA [id number] [address] [place] [address] [place] Platelets (Bld) [#/Vol] 308 10*3/uL Normal 150-400 [facility] Comment on above: Order Comment: Speci men Type: BLOOD SPECIMEN Performed By: #### 5 7021-8 #### [facility] CLIA [id number] [address] [place] [address] [place] RBC (Bld) [#/Vol] 3.73 10*6/uL Low 3.90-5.20 [facility] Comment on above: Order Comment: Speci men Type: BLOOD SPECIMEN Performed By: #### 5 7021-8 #### [facility] CLIA [id number] [address] [place] [address] [facility] RED CELL MORPH Normal Normal [facility] Comment on above: Order Comment: Speci men Type: BLOOD SPECIMEN Performed By: #### 5 7021-8 #### [facility] [place] [facility] CLIA [id number] [address] [place] [address] [facility] [place] WBC (Bld) [#/Vol] 4.83 10*3/uL Normal 3.70-11.00 [facility] Comment on above: Order Comment: Speci men Type: BLOOD SPECIMEN Performed By: #### 5 7021-8 #### [facility] [place] [facility] CLIA [id number] [address] [place] [address] [facility] CT CHEST W IVCON PEon 2020 CT CHEST W IVCON PE Final Report DATE OF EXAM: Aug 10 2020 12:10PM [facility] 0540 - CT CHEST W IVCON PE / PROCEDURE REASON: PE suspected, high pretest prob Physician Interpretation EXAMINATION: CHEST CT WITH CONTRAST (PULMONARY EMBOLISM PROTOCOL) CLINICAL HISTORY: PE suspected, high pretest prob shortness of breath; evaluate for pulmonary embolus Technique: Spiral CT acquisition of the chest from the thoracic inlet to the upper abdomen following IV contrast. Axial 1 and 3 mm thick slices plus coronal and sagittal reformatted images. MQ: CTCP_5 Contrast: 100 mL Omnipaque [address] Radiation dose: Integrated Dose-length product (DLP) for this visit = 347.[address] Dose Reduction Employed: Automated exposure control (AEC) Comparison: No relevant prior studies available. RESULT: Limitations: None. Evaluation for thromboembolic disease: - Right heart chambers: No thromboembolic disease. - Main pulmonary arteries: No thromboembolic disease. - Lobar pulmonary arteries: No thromboembolic disease. - Segmental pulmonary arteries: No thromboembolic disease. - Subsegmental pulmonary arteries: No thromboembolic disease. - Additional pulmonary artery findings: The main pulmonary artery is normal in caliber. Lines, tubes, and devices: None. Lung parenchyma and airways: Right lung: There are 2 nodules measuring 3 mm each within the right middle lobe (4:23). There is a 6 mm nodule and an adjacent 3 mm nodule within the right lower lobe (4:24). There is a 5 mm nodule within the right lower lobe (image 23). Left lung: There is a 3 mm nodule within the left lower lobe (4:30). There is a 4 mm nodule within the left lower lobe (4:38). Both lungs demonstrate possible mild scattered diffuse groundglass density. This could be artifactual secondary to some motion artifact. No focal consolidation, pleural effusion or pneumothorax is seen. Pleural space: No pleural effusion. No pleural thickening. Lower neck, lymph nodes, and mediastinum: The imaged thyroid gland is normal. No lymphadenopathy in the supraclavicular, axillary, mediastinal, or hilar regions. Heart, pericardium, and thoracic vessels: The thoracic aorta is normal in caliber. The cardiac chambers are normal in size. No coronary artery atherosclerotic calcifications are noted, although the study is not optimized for coronary assessment. No pericardial effusion or thickening. Bones and soft tissues: No destructive bone lesion. Chest wall is unremarkable. Upper abdomen: No abnormality in the imaged upper abdomen. Frame Stylist (topogram) images: IMPRESSION: 1. No evidence of acute pulmonary embolus 2. There are multiple scattered bilateral pulmonary nodules as detailed above. None of these measures greater than 6 mm in size. Overall there are approximately 8 nodules. Follow-up as below. 3. Possible mild scattered groundglass density or areas of air trapping. This can be seen in hypersensitivity reaction or small airways disease.. It would be considered less likely that this represents edema or pneumonia. Correlate with clinical symptoms. Incidental Finding: Follow-up Acuity: Incidental Findings: Solid: 6-8 mm (multiple nodules) Routing Code: RI_1 Recommendation: CT Chest WO IVCON Time Frame: 3-6 months Comments: If stable on follow-up imaging, a repeat chest CT exam in 12 months (15 - 18 months from the initial exam) is recommended. Vehicle Operator: CYRUS Transcribe Date/Time: Aug 10 2020 12:32P Dictated by : ADRI EMERSON MD This examination was interpreted and the report reviewed and electronically signed by: ADRI EMERSON MD on Aug 10 2020 12:50PM EST ACTIONABLE Normal [facility] D dimer FEU PPP-mCncon 08-10 Fibrin D-dimer FEU (PPP) [Mass/Vol] 380 ng/mL FEU Normal <500 [facility] Comment on above: Order Comment: Speci men Type: BLOOD SPECIMEN Performed By: #### 4 8065-7, 88245-1 #### [facility] CLIA [id number] [address] [place] [address] [place] HCG Preg Ur Qlon 08-10-2020 HCG ( test) Ql (U) Negative Normal Negative [facility] Comment on above: Order Comment: Speci men Type: URINE SPECIMEN Result Comment: This test is intended to aid in the early detection of . Very dilute urine samples, as indicated by a low specific gravity, may not contain sales representative advertising levels of hCG. This test detects intact hCG only. This test does not reliably detect hCG degradation products, including free-beta subunit and beta-core fragment. Therefore, this test may show reduced reactivity in urine after 8 weeks gestation. A number of conditions other than , including trophoblastic disease and certain non-trophoblastic neoplasms cause elevated levels of hCG. As with any assay employing mouse antibodies, the possibility exists for interference by human anti-mouse antibodies (HAMA) in the specimen. The test provides a presumptive diagnosis for . Performed By: #### 2 106-3 #### [facility] CLIA [id number] [address] [place] [address] [place] HIGH SENSITIVITY TROPONIN To n 08-10-2020 HIGH SENSITIVITY CHARLES <6 Normal <12 [facility] Comment on above: Order Comment: Speci men Type: BLOOD SPECIMEN Result Comment: When assessing risk for acute coronary syndromes: In patients undergoing blood draw greater than or equal to 2 hours from symptom onset, with history of very low to moderate risk and non-ischemic ECG, an initial hs-Troponin T less than 12 ng/L AND a 1 hour delta hs-Troponin T less than 3 ng/L should be considered very low risk for 30 day MACE. Performed By: #### H STNT #### [facility] CLIA [id number] [address] HIGH SENSITIVITY CHARLES <6 Normal <12 [facility] Comment on above: Order [facility]: [facility] Result Comment: When assessing risk for acute coronary syndromes: In patients undergoing blood draw greater than or equal to 2 hours from symptom onset, with history of very low to moderate risk and non-ischemic ECG, an initial hs-Troponin T less than 12 ng/L AND a 1 hour delta hs-Troponin T less than 3 ng/L should be considered very low risk for 30 day MACE. Performed By: #### H STNT #### [facility] CLIA [id number] [address] NT-proBNP [facility] 08-10 Natriuretic peptide.B prohormone N-Terminal [Mass/Vol] <50 Normal <125 [facility] Comment on above: [facility]: [facility] BLOOD [facility]CIMEN Performed By: #### 2 4321-2, 74063-9 #### [facility] CLIA [id number] [address] PT panel Coag (PPP)on 2020 INR Coag (PPP) [Relative time] 1.0 {INR} Normal 0.9-1.3 [facility] Comment on above: Order Comment: Speci [facility] Type: BLOOD SPECIMEN Result Comment: Kathy min K Antagonist (VKA) Therapeutic Range: INR 2 to 3 (Target INR of 2.5) Note: For patients treated with VKA drugs, such as warfarin, the [place] [employer] 2012 Guideline recommends a therapeutic INR range of 2 to 3 (target INR of 2.5). This recommendation includes high-risk patients with antiphospholipid syndrome with previous arterial or venous thromboembolism, current-generation mechanical or bioprosthetic aortic heart valve replacement. Note: Patients with mechanical aortic valve replacement and additional risk factors for thromboembolic events (atrial fibrillation, previous thromboembolism, LV dysfunction, hypercoagulable conditions) or an older generation mechanical AVR (i.e., ball in-Cage) or any mechanical MVR should have a INR therapeutic range of 2.5 to 3.5 (target INR of 3). Kyle GH, et al. Chest 2012, 141:7S-47S Arturo RA, et al. [facility] 2017, 70: 252-289 Performed By: #### 4 8065-7, [id number] #### [facility] CLIA [id number] [address] [place] [address] [place] PT Coag (PPP) [Time] 10.2 s Normal 9.7-13.0 [facility] Comment on above: Order Comment: Speci men Type: BLOOD SPECIMEN Performed By: #### 4 8065-7, [id number] #### [facility] CLIA [id number] [address] [place] [address] [place] No Panel Information Nasal Screen MRSA/MSSA [facility] Work Phone: Vital Signs Date Time Vital Sign Value Performing Clinician Christii maria elena 12-14-2024 07:53-0400 Body height 160.[address] Breezy Alegria MD Work Phone: [facility] 12-14-2024 07:53-0400 Body mass index (BMI) [Ratio] 29.2 kg/m2 Dr. Breezy Alegria MD Work Phone: [facility] 12-14-2024 07:53-0400 Body temperature 98.4 [degF] Dr. Breezy Alegria MD Work Phone: [facility] 12-14-2024 07:53-0400 Body weight 74.[address] Breezy Alegria MD Work Phone: [facility] 12-14-2024 07:53-0400 Diastolic blood pressure 69 mm[Hg] Dr. Breezy Alegria MD Work Phone: [facility] 12-14-2024 07:53-0400 Heart rate 85 /min Dr. Breezy Alegria MD Work Phone: [facility] 12-14-2024 07:53-0400 Respiratory rate 15 /min Dr. Breezy Alegria MD Work Phone: [facility] 12-14-2024 07:53-0400 SaO2% (BldA) [Mass fraction] 97 % Dr. Breezy Alegria MD Work Phone: [facility] 12-14-2024 07:53-0400 Systolic blood pressure 117 mm[Hg] Dr. Breezy Alegria MD Work Phone: [facility] 09-08-2024 08:48-0500 Body mass index (BMI) [Ratio] 30.2 kg/m2 Dr. Breezy Alegria MD Work Phone: [facility] 09-08-2024 08:48-0500 Body weight 77.[address] Breezy Alegria MD Work Phone: [facility] 09-08-2024 08:48-0500 Diastolic blood pressure 82 mm[Hg] Dr. Breezy Alegria MD Work Phone: [facility] 09-08-2024 08:48-0500 Systolic blood pressure 124 mm[Hg] Dr. Breezy Alegria MD Work Phone: [facility] 11-04-2023 08:47-0400 Body height 160.[address] Breezy Alegria Work Phone: [facility] 11-04-2023 08:47-0400 Body mass index (BMI) [Ratio] 31.8 kg/m2 Dr. Breezy Alegria Work Phone: [facility] 11-04-2023 08:47-0400 Body weight 81.[address] Breezy Alegria Work Phone: [facility] 11-04-2023 08:47-0400 Diastolic blood pressure 68 mm[Hg] Dr. Breezy Alegria Work Phone: [facility] 11-04-2023 08:47-0400 Systolic blood pressure 120 mm[Hg] Dr. Breezy Alegria Work Phone: [facility] 09-02-2023 10:16-0500 Body height 160.[address] Breezy Alegria Work Phone: [facility] 09-02-2023 10:05-0500 Body mass index (BMI) [Ratio] 31.2 kg/m2 Dr. Breezy Alegria Work Phone: [facility] 09-02-2023 10:05-0500 Body weight 80.[address] Breezy Alegria Work Phone: [facility] 09-02-2023 10:05-0500 Diastolic blood pressure 80 mm[Hg] Dr. Breezy Alegria Work Phone: [facility] 09-02-2023 10:05-0500 Systolic blood pressure 128 mm[Hg] Dr. Breezy Alegria Work Phone: [facility] 08-17-2023 08:47-0500 Body temperature 98 [degF] Dr. Breezy Alegria Work Phone: [facility] 08-17-2023 08:47-0500 Diastolic blood pressure 83 mm[Hg] Dr. Breezy Alegria Work Phone: [facility] 08-17-2023 08:47-0500 Heart rate 94 /min Dr. Breezy Alegria Work Phone: [facility] 08-17-2023 08:47-0500 Respiratory rate 15 /min Dr. Breezy Alegria Work Phone: [facility] 08-17-2023 08:47-0500 SaO2% (BldA) [Mass fraction] 99 % Dr. Breezy Alegria Work Phone: 2(557)852-[address] [place] [address] 08-17-2023 08:47-0500 Systolic blood pressure 105 mm[Hg] Dr. Breezy Alegria Work Phone: [facility] 06-10-2023 12:45-0500 Body temperature 97.9 [degF] Dr. Breezy Alegria Work Phone: [facility] 06-10-2023 12:45-0500 Diastolic blood pressure 67 mm[Hg] Dr. Breezy Alegria Work Phone: [facility] 06-10-2023 12:45-0500 Heart rate 95 /min Dr. Breezy Alegria Work Phone: 8(090)481-166117 [place] [address] 06-10-2023 12:45-0500 Respiratory rate 18 /min Dr. Breezy Alegria Work Phone: 5(395)155-980017 [place] [address] 06-10-2023 12:45-0500 SaO2% (BldA) [Mass fraction] 100 % Dr. Breezy Alegria Work Phone: [facility] 06-10-2023 12:45-0500 Systolic blood pressure 121 mm[Hg] Dr. Breezy Alegria Work Phone: [facility] 06-09-2023 15:39-0500 Body height 160.[address] Breezy Alegria Work Phone: [facility] 06-09-2023 15:39-0500 Body mass index (BMI) [Ratio] 30.3 kg/m2 Dr. Breezy Alegria Work Phone: [facility] 06-09-2023 15:39-0500 Body weight 77.[address] Breezy Alegria Work Phone: [facility] 06-09-2023 13:12-0500 Inhaled oxygen flow rate 4 L/min Dr. Breezy Alegria Work Phone: [facility] 05-20-2023 07:37-0500 Body mass index (BMI) [Ratio] 30.7 kg/m2 Dr. Breezy Alegria Work Phone: 8(427)114-784817 [place] [address] 05-20-2023 07:37-0500 Body temperature 98.2 [degF] Dr. Breezy Alegria Work Phone: 7(543)306-025817 [place] [address] 05-20-2023 07:37-0500 Body weight 78.[address] Breezy Alegria Work Phone: 4(403)681-138917 [place] [address] 05-20-2023 07:37-0500 Diastolic blood pressure 72 mm[Hg] Dr. Breezy Alegria Work Phone: 7(882)975-740350 [address] 05-20-2023 07:37-0500 Heart rate 72 /min Dr. Breezy Alegria Work Phone: 9(099)055-604819 [place] [address] 05-20-2023 07:37-0500 Respiratory rate 16 /min Dr. Breezy Alegria Work Phone: 1(804)640-780250 [address] 05-20-2023 07:37-0500 SaO2% (BldA) [Mass fraction] 99 % Dr. Breezy Alegria Work Phone: 2(591)645-395617 [place] [address] 05-20-2023 07:37-0500 Systolic blood pressure 125 mm[Hg] Dr. Breezy Alegria Work Phone: 2(079)994-532719 [place] [address] 10-21-2022 12:46-0400 Body height 160.[address] Breezy Alegria Work Phone: 3(834)708-899419 [place] [address] 08-14-2022 10:32-0500 Body mass index (BMI) [Ratio] 29.7 kg/m2 Dr. Breezy Alegria Work Phone: 2(748)723-000517 [place] [address] 08-14-2022 10:32-0500 Body temperature 97.3 [degF] Dr. Breezy Alegria Work Phone: 1(257)756-950617 [place] [address] 08-14-2022 10:32-0500 Body weight 76.[address] Breezy Alegria Work Phone: 1(055)668-433017 [place] [address] 08-14-2022 10:32-0500 Diastolic blood pressure 77 mm[Hg] Dr. Breezy Alegria Work Phone: 3(696)833-505017 [place] [address] 08-14-2022 10:32-0500 Heart rate 85 /min Dr. Breezy Alegria Work Phone: [facility] 08-14-2022 10:32-0500 Respiratory rate 18 /min Dr. Breezy Alegria Work Phone: [facility] 08-14-2022 10:32-0500 SaO2% (BldA) [Mass fraction] 98 % Dr. Breezy Alegria Work Phone: [facility] 08-14-2022 10:32-0500 Systolic blood pressure 128 mm[Hg] Dr. Breezy Alegria Work Phone: [facility] 06-20-2022 13:29-0500 Body weight 75.[address] Breezy Alegria Work Phone: [facility] Work Phone: 06-20-2022 13:29-0500 Diastolic blood pressure 73 mm[Hg] Dr. Breezy Alegria Work Phone: [facility] Work Phone: 06-20-2022 13:29-0500 Heart rate 89 /min Dr. Breezy Alegria Work Phone: [facility] Work Phone: 06-20-2022 13:29-0500 Respiratory rate 17 /min Dr. Breezy Alegria Work Phone: [facility] Work Phone: 06-20-2022 13:29-0500 SaO2% (BldA) [Mass fraction] 99 % Dr. Breezy Alegria Work Phone: [facility] Work Phone: 06-20-2022 13:29-0500 Systolic blood pressure 112 mm[Hg] Dr. Breezy Alegria Work Phone: [facility] Work Phone: 12-18-2021 13:46-0400 Body temperature 98.5 [degF] Dr. Breeyz Alegria Work Phone: [facility] Work Phone: 12-18-2021 13:46-0400 Diastolic blood pressure 69 mm[Hg] Dr. Breezy Alegria Work Phone: [facility] Work Phone: 12-18-2021 13:46-0400 Heart rate 86 /min Dr. Breezy Alegria Work Phone: [facility] Work Phone: 12-18-2021 13:46-0400 Respiratory rate 18 /min Dr. Breezy Alegria Work Phone: [facility] Work Phone: 12-18-2021 13:46-0400 SaO2% (BldA) [Mass fraction] 100 % Dr. Breezy Alegria Work Phone: [facility] Work Phone: 12-18-2021 13:46-0400 Systolic blood pressure 119 mm[Hg] Dr. Breezy Alegria Work Phone: [facility] Work Phone: 12-17-2021 15:08-0400 Inhaled oxygen flow rate 2 L/min Dr. Breezy Alegria Work Phone: [facility] Work Phone: 12-17-2021 13:05-0400 Body height 160.[address] Breezy Alegria Work Phone: [facility] Work Phone: 12-17-2021 13:05-0400 Body mass index (BMI) [Ratio] 29.2 kg/m2 Dr. Breezy Alegria Work Phone: [facility] Work Phone: 12-17-2021 13:05-0400 Body weight 74.[address] Breezy Alegria Work Phone: [facility] Work Phone: 08-19-2021 12:40-0500 Body height 160.[address] Breezy Alegria Work Phone: [facility] Work Phone: 08-19-2021 12:40-0500 Body mass index (BMI) [Ratio] 31.8 kg/m2 Dr. Breezy Alegria Work Phone: [facility] Work Phone: 08-19-2021 12:40-0500 Body weight 81.[address] Breezy Alegria Work Phone: [facility] Work Phone: 07-31-2021 06:59-0500 Body temperature 97.7 [degF] Dr. Breezy Alegria Work Phone: [facility] Work Phone: 07-31-2021 06:59-0500 Diastolic blood pressure 75 mm[Hg] Dr. Breezy Alegria Work Phone: [facility] Work Phone: 07-31-2021 06:59-0500 Heart rate 95 /min Dr. Breezy Alegria Work Phone: [facility] Work Phone: 07-31-2021 06:59-0500 Respiratory rate 16 /min Dr. Breezy Alegria Work Phone: [facility] Work Phone: 07-31-2021 06:59-0500 SaO2% (BldA) [Mass fraction] 96 % Dr. Breezy Alegria Work Phone: [facility] Work Phone: 07-31-2021 06:59-0500 Systolic blood pressure 122 mm[Hg] Dr. Breezy Alegria Work Phone: [facility] Work Phone: Encounters Encounter Date Encounter Type Care Provider Facility Start: 12-28-2024 ambulatory Breezy Brooks y:[facility] Start: 12-14-2024 End: 12-14-[address] Trino Christian MD -[facility] Work Phone: Start: 12-14-2024 End: 12-14-2024 ambulatory Breezy Alegria Facility:[facility] Start: 09-08-2024 End: 09-08-2024 Patient encounter procedure Arlene Charisse DOCTOR'S ASSISTANT-C -[facility] Work Phone: Start: 09-08-2024 End: 09-08-2024 ambulatory Arlene Charisse DOCTOR'S ASSISTANT Facility:[facility] Start: 08-24-2024 End: 08-24-[address] Breezy Alegria MD -[facility] Start: 08-24-2024 End: 08-24-2024 ambulatory Breezy Alegria Facility:[facility] Start: 08-23-2024 End: 08-23-[address] Breezy Alegria MD -[facility] Start: 08-23-2024 End: 08-23-2024 ambulatory Breezy Alegria Facility:[facility] Start: 06-29-2024 End: 06-29-2024 ambulatory Arlene Mcqueen NP Facility:[facility] Start: 06-13-2024 End: 06-13-2024 ambulatory Breezy Alegria Facility:[facility] Start: 05-27-2024 ambulatory Breezy Alegria Facilit y:[facility] Start: 05-24-2024 End: 05-24-2024 ambulatory Breezy Alegria Facility:[facility] Start: 01-26-2024 End: 01-26-2024 ambulatory Breezy Alegria Facility:[facility] Start: 01-22-2024 End: 01-22-2024 ambulatory Breezy Alegria Facility:[facility] Start: 01-07-2024 End: 01-07-2024 ambulatory Breezy Alegria Facility:[facility] Start: 11-04-2023 End: 11-04-[address] Breezy Alegria Work Phone: [facility] Work Phone: Start: 11-04-2023 End: 11-04-[address] Breezy Alegria Work Phone: [facility] Work Phone: Start: 10-23-2023 End: 10-23-[address] Breezy Alegria Work Phone: [facility] Work Phone: Start: 10-23-2023 End: 10-23-[address] Breezy Alegria Work Phone: [facility] [place] Start: 09-21-2023 End: 09-21-[address] Breezy Alegria Work Phone: [facility] Work Phone: Start: 09-02-2023 End: 09-02-[address] Breezy Alegria Work Phone: [facility], Specimen Work Phone: Start: 09-02-2023 End: 09-02-[address] Breezy Alegria Work Phone: [facility] Work Phone: Start: 08-17-2023 End: 08-17-[address] Breezy Alegria Work Phone: [facility] Neurology Work Phone: Start: 08-05-2023 End: 08-05-[address] Breezy Alegria Work Phone: [facility] Work Phone: Start: 06-24-2023 End: 06-24-[address] Breezy Alegria Work Phone: [facility] Work Phone: Start: 06-24-2023 End: 06-24-[address] Breezy Alegria Work Phone: [facility]-Outpatient Breast Imaging Work Phone: Start: 06-24-2023 End: 06-24-[address] Breezy Alegria Work Phone: [facility] Work Phone: Start: 06-10-2023 Non-patient / Non-visit Dr. Olya Alegria Work Phone: [facility] Work Phone: Start: 06-09-2023 Non-patient / Non-visit Dr. Olya Alegria Work Phone: [facility] Work Phone: Start: 06-09-2023 Non-patient / Non-visit Dr. Olya Alegria Work Phone: [facility] Start: 06-09-2023 End: 06-10-2023 Evaluation and management of inpatient Dr. Breezy Alegria Work Phone: [facility]-Medical Surgical 3 Work Phone: Start: 06-09-2023 End: 06-10-[address] Breezy Alegria Work Phone: [facility] Work Phone: Start: 06-08-2023 Non-patient / Non-visit Dr. Olya Alegria Work Phone: [facility] Start: 05-29-2023 End: 05-29-2023 Non-patient / Non-visit Dr. Breezy Alegria Work Phone: [facility] Work Phone: Start: 05-29-2023 End: 05-29-[address] Breezy Alegria Work Phone: [facility] Work Phone: Start: 05-20-2023 End: 05-20-[address] Breezy Alegria Work Phone: [facility]-Pulmonary Medicine [facility] Work Phone: Start: 05-14-2023 End: 05-14-[address] Breezy Alegria Work Phone: [facility] Work Phone: Start: 05-14-2023 End: 05-14-[address] Breezy Alegria Work Phone: [facility] Work Phone: Start: 04-22-2023 Non-patient / Non-visit Dr. Olya Alegria Work Phone: [facility] Start: 04-21-2023 End: 04-21-[address] Breezy Alegria Work Phone: [facility] Work Phone: Start: 04-21-2023 End: 04-21-[address] Breezy Alegria Work Phone: [facility]-Pulmonary Services/Neurology Work Phone: Start: 04-08-2023 End: 04-08-[address] Breezy Alegria Work Phone: [facility] Work Phone: Start: 02-12-2023 Non-patient / Non-visit Dr. Olya Alegria Work Phone: [facility] Start: 02-12-2023 End: 02-12-[address] Breezy Alegria Work Phone: [facility] Work Phone: Start: 02-12-2023 End: 02-12-[address] Breezy Alegria Work Phone: [facility]-Cardiovascular Services Work Phone: Start: 02-10-2023 End: 02-10-[address] Breezy Alegria Work Phone: [facility] Work Phone: Start: 02-10-2023 End: 02-10-[address] Breezy Alegria Work Phone: [facility] Work Phone: Start: 01-29-2023 End: 01-29-[address] Breezy Alegria Work Phone: [facility] Work Phone: Start: 01-21-2023 End: 01-21-[address] Breezy Alegria Work Phone: [facility] Work Phone: Start: 01-21-2023 End: 01-21-[address] Breezy Alegria Work Phone: [facility] Start: 01-19-2023 End: 01-19-[address] Breezy Alegria Work Phone: [facility] Work Phone: Start: 01-19-2023 End: 01-19-[address] Breezy Alegria Work Phone: [facility] Work Phone: Start: 12-19-2022 End: 12-19-[address] Breezy Alegria Work Phone: [facility] Start: 12-16-2022 End: 12-16-[address] Breezy Alegria Work Phone: [facility] Work Phone: Start: 12-16-2022 End: 12-16-[address] Breezy Alegria Work Phone: [facility]-Outpatient Pavilion Ultrasound Start: 12-03-2022 End: 12-03-[address] Breezy Alegria Work Phone: [facility] Start: 11-14-2022 End: 11-14-[address] Breezy Alegria Work Phone: [facility] Start: 11-06-2022 End: 11-06-[address] Breezy Alegria Work Phone: [facility] Work Phone: Start: 11-06-2022 End: 11-06-[address] Breezy Alegria Work Phone: [facility] Start: 10-24-2022 End: 10-24-[address] Breezy Alegria Work Phone: [facility] Start: 08-14-2022 End: 08-14-[address] Breezy Alegria Work Phone: [facility]-Pulmonary Medicine [facility] Start: 06-20-[address] Breezy Alegria Work Phone: [facility]-Laboratory, Specimen Start: 06-20-2022 End: 06-20-[address] Breezy Alegria Work Phone: [facility] Start: 06-17-2022 End: 06-17-[address] Breezy Alegria Work Phone: [facility] Work Phone: Start: 06-17-2022 End: 06-17-[address] Breezy Alegria Work Phone: [facility]-Outpatient Pavilion Ultrasound Start: 06-16-2022 End: 06-16-[address] Breezy Alegria Work Phone: [facility]-Outpatient Breast Imaging Start: 06-03-2022 End: 06-03-[address] Breezy Alegria Work Phone: [facility] Work Phone: Start: 06-03-2022 End: 06-03-[address] Breezy Alegria Work Phone: [facility] Spec[facility] Start: 05-27-2022 End: 05-27-[address] Breezy Alegria Work Phone: [facility] Work Phone: Start: 05-27-2022 End: 05-27-[address] rBeezy Alegria Work Phone: [facility] Start: 05-01-2022 End: 05-01-2022 ambulatory MICHAEL ZAFRA Facility:[id number] Start: 04-28-2022 End: 04-28-[address] Breezy Alegria Work Phone: [facility] Start: 04-18-2022 ambulatory Michael Zafar [facility] Start: 03-10-2022 End: 03-10-[address] Breezy Alegria Work Phone: [facility] Start: 03-04-2022 End: 03-04-[address] Breezy Alegria Work Phone: [facility] Work Phone: Start: 03-04-2022 End: 03-04-[address] Breezy Alegria Work Phone: [facility] Start: 02-13-2022 End: 02-13-[address] Breezy Alegria Work Phone: [facility] Start: 01-27-2022 End: 01-27-[address] Breezy Alegria Work Phone: [facility] Start: 01-22-2022 End: 01-22-[address] Breezy Alegria Work Phone: [facility] Start: 01-17-2022 End: 01-17-[address] Breezy Alegria Work Phone: [facility] Start: 01-10-2022 End: 01-10-[address] Breezy Alegria Work Phone: [facility] Start: 12-30-2021 End: 12-30-[address] Breezy Alegria Work Phone: [facility] Start: 12-18-2021 Non-patient / Non-visit Dr. Olya Alegria Work Phone: [facility] Start: 12-18-2021 Non-patient / Non-visit Dr. Olya Alegria Work Phone: [facility] Start: 12-17-2021 Non-patient / Non-visit Dr. Olya Alegria Work Phone: [facility] Start: 12-17-2021 Non-patient / Non-visit Dr. Olya Alegria Work Phone: [facility] Start: 12-17-2021 End: 12-18-2021 Evaluation and management of inpatient [facility] Start: 12-16-2021 Non-patient / Non-visit Dr. Olya Alegria Work Phone: [facility] Start: 12-06-2021 End: 12-06-[address] Breezy Alegria Work Phone: [facility] Start: 12-05-2021 Non-patient / Non-visit Dr. Olya Alegria Work Phone: [facility] Start: 11-27-2021 End: 11-27-[address] Breezy Alegria Work Phone: [facility] Start: 10-24-2021 End: 10-24-[address] Breezy Alegria Work Phone[facility] Start: 10-16-2021 End: 10-16-[address] Breezy Alegria Work Phone: [facility]-Cat [facility] Start: 10-11-[address] Breezy Alegria Work Phone: [facility]-Physical Therapy Start: 08-19-2021 End: 08-19-[address] Breezy Alegria Work Phone: [facility] Start: 08-06-2021 End: 08-06-[address] Breezy Alegria Work Phone: [facility] Start: 07-31-2021 End: 07-31-[address] Breezy Alegria Work Phone: [facility]-Medical Out Start: 07-19-2021 End: 07-19-[address] Breezy Alegria Work Phone: [facility]-Laboratory, Specimen Procedures Date Procedure Procedure Detail Performing Clinician Start: 08-24-2024 Thyro[address] antibo dy measurement [address] Breezy Alegria MD Work Phone: Comment on above: Thyroglobulin Antibo dy measured by Gila CoulterMethodologyIt should be noted that the presence of thyroglobulinantibodies may not be pathogenic nor diagnostic, especiallyat very low levels. The assay computer programming professor has found thatfour percent of individuals without evidence of thyroiddisease or autoimmunity will have positive TgAb levels upto 4 IU/mL. Start: 08-24-[address] Breezy Alegria MD Work Phone: Start: 08-24-2024 Total iron binding c apacity measurement Dr. Breezy Alegria MD Work Phone: Start: 08-23-2024 Measurement of renal function Dr. Breezy Alegria MD Work Phone: Comment on above: GFR Calc Start: 08-23-2024 Vitamin D, 25-hydrox y measurement Dr. Breezy Alegria MD Work Phone: Comment on above: Vitamin D 25(OH) Sta tus Range Deficiency <20 ng/mL (50nmol/L) Insufficiency 20 - 30 ng/mL (50 - 75 nmol/L) Sufficiency 30 - 100 ng/mL (75 - 250 nmol/L) Toxicity >100 ng/mL (>250 nmol/L) Start: 09-21-2023 X-ray of cervical spine Dr. Breezy Alegria Work Phone: Start: 08-05-2023 X-ray of cervical spine Dr. Breezy Alegria Work Phone: Start: 06-24-2023 Screening mammography Allison Alegria Work Phone: Start: 06-24-2023 X-ray of cervical spine Dr. Breezy Alegria Work Phone: Start: 06-09-[address] Yandel Alegria Work Phone: Start: 06-09-[address] Yandel Alegria Work Phone: Start: 06-09-[address] Yandel Alegria Work Phone: Start: 06-09-2023 Cervical arthrodesis by anterior technique Dr. Breezy Alegria Work Phone: Start: 05-29-2023 Nasal Screen MRSA/MSSA Dr. Breezy Alegria Work Phone: Start: 05-14-2023 CT of chest without contrast Dr. Breezy Alegria Work Phone: Start: 02-10-2023 CT of chest without contrast Dr. Breezy Alegria Work Phone: Start: 01-29-2023 Plain chest X-ray Dr. Xi Alegria Work Phone: Start: 01-19-2023 MRI of brain with contrast Dr. Breezy Alegria Work Phone: Start: 12-16-[address] Breezy Alegria Work Phone: Start: 11-06-2022 MRI of cervical spine Allison Alegria Work Phone: Start: 06-17-[address] Breezy Alegria Work Phone: Start: 06-16-2022 Screening mammography Allison Alegria Work Phone: Start: 04-28-2022 X-ray of cervical spine Dr. Breezy Alegria Work Phone: Start: 03-10-2022 X-ray of cervical spine Dr. Breezy Alegria Work Phone: Start: 03-04-2022 End: 03-04-2022 Radiologic examination of knee Dr. Breezy Alegria Work Phone: Start: 01-27-2022 X-ray of cervical spine Dr. Breezy Alegria Work Phone: Start: 12-17-2021 End: 12-17-[address] Breezy Alegria Work Phone: Start: 12-17-2021 Cervical arthrodesis by anterior technique Dr. Breezy Alegria Work Phone: Start: 12-17-[address] Yandel Alegria Work Phone: Start: 12-05-2021 Nasal Screen MRSA/MSSA Dr. Breezy Alegria Work Phone: Start: 10-16-2021 CT of chest without contrast Dr. Breezy Alegria Work Phone: Start: 08-06-2021 X-ray of cervical spine Dr. Breezy Alegria Work Phone: Nasal Screen MRSA/MSSA Dr. Xi Alegria Work Phone: Plan of Treatment Date Care Activity Detail Author Start: 06-10-2023 Patient discharge [facility] Start: 06-09-2023 Following clinical pathway protocol [facility] Start: 06-09-2023 Allograft for spine surgery only morselized SP BONE ALGRFT MORSEL ADD-ON [facility] Start: 06-09-2023 Anesthesia extensive spine & spinal cord ANESTH SPINE CORD SURGERY [facility] Start: 06-09-2023 Arthrd ant interbody decompress cervical belw c2 ARTHRD ANT NTRBDY CERVICAL [facility] Start: 06-09-2023 Bone marrow aspiration bone grfg spi surg only BONE MARROW ASPIR BONE GRFG [facility] Start: 06-09-2023 Insj biomchn dev intervertebral dsc spc w/arthrd INSJ BIOMECHANICAL DEVICE [facility] Start: 06-09-2023 Application of intermittent pneumatic compression device [facility] Start: 06-09-2023 Care of equipment and devices [facility] Start: 06-09-2023 Catheterization of vein [facility] Start: 06-09-2023 Consultation [facility] Start: 06-09-2023 Following clinical pathway protocol [facility] Start: 06-09-2023 Incentive spirometry [facility] Start: 06-09-2023 Introduction of urinary catheter [facility] Start: 06-09-2023 Measuring intake and output [facility] Start: 06-09-2023 Neurovascular assessment [facility] Start: 06-09-2023 Patient education [facility] Start: 06-09-2023 Procedure discontinued [facility] Start: 06-09-2023 Provision of activity privileges [facility] Start: 06-09-2023 Recommendation to continue with treatment [facility] Start: 06-09-2023 Referral to service [facility] Start: 06-09-2023 Taking patient vital signs [facility] Start: 06-09-2023 [facility] Start: 06-09-2023 Admission procedure [facility] Start: 12-18-2021 Patient discharge [facility] Work Phone: Start: 12-18-2021 Removal of urinary catheter [facility] Work Phone: Start: 12-18-2021 [facility] Work Phone: Start: 12-17-2021 Oxygen therapy [facility] Work Phone: Start: 12-17-2021 Allograft for spine surgery only structural SP BONE ALGRFT STRUCT ADD-ON [facility] Work Phone: Start: 12-17-2021 Anesthesia extensive spine & spinal cord ANESTH SPINE CORD SURGERY [facility] Work Phone: Start: 12-17-2021 Anterior instrumentation 2-3 vertebral segments INSERT SPINE FIXATION DEVICE [facility] Work Phone: Start: 12-17-2021 Arthrd ant interbody decompress cervical belw c2 ARTHRD ANT NTRBDY CERVICAL [facility] Work Phone: Start: 12-17-2021 Insj biomchn dev intervertebral dsc spc w/arthrd INSJ BIOMECHANICAL DEVICE [facility] Work Phone: Start: 12-17-2021 Following clinical pathway protocol [facility] Work Phone: Start: 12-17-2021 Application of antithromboembolic stockings [facility] Work Phone: Start: 12-17-2021 Application of intermittent pneumatic compression device [facility] Work Phone: Start: 12-17-2021 Care of equipment and devices [facility] Work Phone: Start: 12-17-2021 Catheterization of vein [facility] Work Phone: Start: 12-17-2021 Consultation [facility] Work Phone: Start: 12-17-2021 Following clinical pathway protocol [facility] Work Phone: Start: 12-17-2021 Incentive spirometry [facility] Work Phone: Start: 12-17-2021 Measuring intake and output [facility] Work Phone: Start: 12-17-2021 Neurovascular assessment [facility] Work Phone: Start: 12-17-2021 Patient education [facility] Work Phone: Start: 12-17-2021 Procedure discontinued [facility] Work Phone: Start: 12-17-2021 Provision of activity privileges [facility] Work Phone: Start: 12-17-2021 Referral to service [facility] Work Phone: Start: 12-17-2021 Taking patient vital signs [facility] Work Phone: Start: 12-17-2021 Admission procedure [facility] Work Phone: Start: 08-19-2021 Patient referral [facility] Work Phone: CT Chest WO contrast [facility] Electrocardiographic procedure [facility] Work Phone: Electrocardiographic procedure [facility] Measurement of respi ratory function [facility] MG Breast - bilatera l Screening [facility] MG Breast - bilatera l Screening [facility] Patient referral [facility] Work Phone: [facility] Payers Date Payer Category Payer Self-pay [id number] 2017 Unknown [id number] 1975 Unknown [id number] 2.16. [id number] Unknown [id number] Unknown Unknown [id number] 2.16.8 [id number] Unknown [id number] 2.16.8 [id number] Unknown [id number] 2.16.8 [id number] Unknown [id number] 2.16.8 [id number] Unknown [id number] 2.16.8 [id number] Unknown [id number] 2.16.8 [id number] Unknown [id number] 2.16.8 [id number] Unknown [id number] 2.16.8 [id number] Unknown [id number] 2.16.8 [id number] Unknown [id number] 2.16.8 [id number] Unknown [id number] 2.16.8 [id number] Unknown [id number] 2.16.8 [id number] Unknown [id number] 2.16.8 [id number] Social History Date Type Detail Facility Start: 08-19-2021 End: 06-24-2023 Tobacco smoking status NHIS Unknown if ever smoked [facility] Start: 1975 Sex Assigned At Female W [facility] Start: 06-13-2024 Tobacco smoking stat us SCIS Never smoked tobacco (finding) [facility] Medical Equipment Procedure Code Equipment Code Equipment Origin al Text Equipment Identifier Dates Discectomy, spine, cervical, anterior approach, with fusion CORELINK F3D CERVICAL FDA Start: 12-17-2021 Discectomy, spine, cervical, anterior approach, with fusion PATCH,AMNION 2X3CM FDA Start: 12-17-2021 Discectomy, spine, cervical, anterior approach, with fusion STRIP,BONE CANC [id number] FDA Start: 12-17-2021 Discectomy, spine, cervical, anterior approach, with fusion ([id number]) Spinal fixation plate, non-bioabsorbable [id number] 650 FDA Start: 12-17-2021 Discectomy, spine, cervical, anterior approach, with fusion ([id number]) Spinal fixation plate, non-bioabsorbable [id number] FDA Start: 12-17-2021 Discectomy, spine, cervical, anterior approach, with fusion CORELINK F3D CERVICAL FDA Start: 12-17-2021 Discectomy, spine, cervical, anterior approach, with fusion PATCH,AMNION 2X3CM FDA Start: 12-17-2021 Discectomy, spine, cervical, anterior approach, with fusion STRIP,BONE CANC [id number] FDA Start: 12-17-2021 Discectomy, spine, cervical, anterior approach, with fusion CORELINK F3D CERVICAL FDA Start: 12-17-2021 Discectomy, spine, cervical, anterior approach, with fusion PATCH,AMNION 2X3CM FDA Start: 12-17-2021 Discectomy, spine, cervical, anterior approach, with fusion STRIP,BONE CANC [id number] FDA Start: 12-17-2021 Discectomy, spine, cervical, anterior approach, with fusion CORELINK F3D CERVICAL FDA Start: 12-17-2021 Discectomy, spine, cervical, anterior approach, with fusion PATCH,AMNION 2X3CM FDA Start: 12-17-2021 Discectomy, spine, cervical, anterior approach, with fusion STRIP,BONE CANC [id number] FDA Start: 12-17-2021 Discectomy, spine, cervical, anterior approach, with fusion CORELINK F3D CERVICAL FDA Start: 12-17-2021 Discectomy, spine, cervical, anterior approach, with fusion PATCH,AMNION 2X3CM FDA Start: 12-17-2021 Discectomy, spine, cervical, anterior approach, with fusion STRIP,BONE CANC [id number] FDA Start: 12-17-2021 Discectomy, spine, cervical, anterior approach, with fusion CORELINK F3D CERVICAL FDA Start: 12-17-2021 Discectomy, spine, cervical, anterior approach, with fusion PATCH,AMNION 2X3CM FDA Start: 12-17-2021 Discectomy, spine, cervical, anterior approach, with fusion STRIP,BONE CANC [id number] FDA Start: 12-17-2021 Discectomy, spine, cervical, anterior approach, with fusion CORELINK F3D CERVICAL FDA Start: 12-17-2021 Discectomy, spine, cervical, anterior approach, with fusion PATCH,AMNION 2X3CM FDA Start: 12-17-2021 Discectomy, spine, cervical, anterior approach, with fusion STRIP,BONE CANC [id number] FDA Start: 12-17-2021 Discectomy, spine, cervical, anterior approach, with fusion CORELINK F3D CERVICAL FDA Start: 12-17-2021 Discectomy, spine, cervical, anterior approach, with fusion PATCH,AMNION 2X3CM FDA Start: 12-17-2021 Discectomy, spine, cervical, anterior approach, with fusion STRIP,BONE CANC [id number] FDA Start: 12-17-2021 Discectomy, spine, cervical, anterior approach, with fusion CORELINK F3D CERVICAL FDA Start: 12-17-2021 Discectomy, spine, cervical, anterior approach, with fusion PATCH,AMNION 2X3CM FDA Start: 12-17-2021 Discectomy, spine, cervical, anterior approach, with fusion STRIP,BONE CANC [id number] FDA Start: 12-17-2021 Discectomy, spine, cervical, anterior approach, with fusion CORELINK F3D CERVICAL FDA Start: 12-17-2021 Discectomy, spine, cervical, anterior approach, with fusion PATCH,AMNION 2X3CM FDA Start: 12-17-2021 Discectomy, spine, cervical, anterior approach, with fusion STRIP,BONE CANC [id number] FDA Start: 12-17-2021 Discectomy, spine, cervical, anterior approach, with fusion CORELINK F3D CERVICAL FDA Start: 12-17-2021 Discectomy, spine, cervical, anterior approach, with fusion PATCH,AMNION 2X3CM FDA Start: 12-17-2021 Discectomy, spine, cervical, anterior approach, with fusion STRIP,BONE CANC [id number] FDA Start: 12-17-2021 Discectomy, spine, cervical, anterior approach, with fusion CORELINK F3D CERVICAL FDA Start: 12-17-2021 Discectomy, spine, cervical, anterior approach, with fusion PATCH,AMNION 2X3CM FDA Start: 12-17-2021 Discectomy, spine, cervical, anterior approach, with fusion STRIP,BONE CANC [id number] FDA Start: 12-17-2021 Discectomy, spine, cervical, anterior approach, with fusion CORELINK F3D CERVICAL FDA Start: 12-17-2021 Discectomy, spine, cervical, anterior approach, with fusion PATCH,AMNION 2X3CM FDA Start: 12-17-2021 Discectomy, spine, cervical, anterior approach, with fusion STRIP,BONE CANC [id number] FDA Start: 12-17-2021 Discectomy, spine, cervical, anterior approach, with fusion CORELINK F3D CERVICAL FDA Start: 12-17-2021 Discectomy, spine, cervical, anterior approach, with fusion PATCH,AMNION 2X3CM FDA Start: 12-17-2021 Discectomy, spine, cervical, anterior approach, with fusion STRIP,BONE CANC [id number] FDA Start: 12-17-2021 Discectomy, spine, cervical, anterior approach, with fusion CORELINK F3D CERVICAL FDA Start: 12-17-2021 Discectomy, spine, cervical, anterior approach, with fusion PATCH,AMNION 2X3CM FDA Start: 12-17-2021 Discectomy, spine, cervical, anterior approach, with fusion STRIP,BONE CANC [id number] FDA Start: 12-17-2021 Discectomy, spine, cervical, anterior approach, with fusion CORELINK F3D CERVICAL FDA Start: 12-17-2021 Discectomy, spine, cervical, anterior approach, with fusion PATCH,AMNION 2X3CM FDA Start: 12-17-2021 Discectomy, spine, cervical, anterior approach, with fusion STRIP,BONE CANC [id number] FDA Start: 12-17-2021 Discectomy, spine, cervical, anterior approach, with fusion CORELINK F3D CERVICAL FDA Start: 12-17-2021 Discectomy, spine, cervical, anterior approach, with fusion PATCH,AMNION 2X3CM FDA Start: 12-17-2021 Discectomy, spine, cervical, anterior approach, with fusion STRIP,BONE CANC [id number] FDA Start: 12-17-2021 Discectomy, spine, cervical, anterior approach, with fusion CORELINK F3D CERVICAL FDA Start: 12-17-2021 Discectomy, spine, cervical, anterior approach, with fusion PATCH,AMNION 2X3CM FDA Start: 12-17-2021 Discectomy, spine, cervical, anterior approach, with fusion STRIP,BONE CANC [id number] FDA Start: 12-17-2021 Discectomy, spine, cervical, anterior approach, with fusion 3.5 x 14 mm Variable Screws FDA Start: 06-09-2023 Discectomy, spine, cervical, anterior approach, with fusion 3.5 x 14 mm Variable Screws FDA Start: 06-09-2023 Discectomy, spine, cervical, anterior approach, with fusion PATCH,AMNION 2X3CM FDA Start: 06-09-2023 Discectomy, spine, cervical, anterior approach, with fusion STRIP,BONE CANC [id number] FDA Start: 06-09-2023 Discectomy, spine, cervical, anterior approach, with fusion Stand-Alone Cervical Corelink Cage 7mm FDA Start: 06-09-2023 Discectomy, spine, cervical, anterior approach, with fusion CORELINK F3D CERVICAL FDA Start: 12-17-2021 Discectomy, spine, cervical, anterior approach, with fusion PATCH,AMNION 2X3CM FDA Start: 12-17-2021 Discectomy, spine, cervical, anterior approach, with fusion STRIP,BONE CANC [id number] FDA Start: 12-17-2021 Discectomy, spine, cervical, anterior approach, with fusion 3.5 x 14 mm Variable Screws FDA Start: 06-09-2023 Discectomy, spine, cervical, anterior approach, with fusion 3.5 x 14 mm Variable Screws FDA Start: 06-09-2023 Discectomy, spine, cervical, anterior approach, with fusion PATCH,AMNION 2X3CM FDA Start: 06-09-2023 Discectomy, spine, cervical, anterior approach, with fusion STRIP,BONE CANC [id number] FDA Start: 06-09-2023 Discectomy, spine, cervical, anterior approach, with fusion Stand-Alone Cervical Corelink Cage 7mm FDA Start: 06-09-2023 Discectomy, spine, cervical, anterior approach, with fusion CORELINK F3D CERVICAL FDA Start: 12-17-2021 Discectomy, spine, cervical, anterior approach, with fusion PATCH,AMNION 2X3CM FDA Start: 12-17-2021 Discectomy, spine, cervical, anterior approach, with fusion STRIP,BONE CANC [id number] FDA Start: 12-17-2021 Discectomy, spine, cervical, anterior approach, with fusion 3.5 x 14 mm Variable Screws FDA Start: 06-09-2023 Discectomy, spine, cervical, anterior approach, with fusion 3.5 x 14 mm Variable Screws FDA Start: 06-09-2023 Discectomy, spine, cervical, anterior approach, with fusion PATCH,AMNION 2X3CM FDA Start: 06-09-2023 Discectomy, spine, cervical, anterior approach, with fusion STRIP,BONE CANC [id number] FDA Start: 06-09-2023 Discectomy, spine, cervical, anterior approach, with fusion Stand-Alone Cervical Corelink Cage 7mm FDA Start: 06-09-2023 Discectomy, spine, cervical, anterior approach, with fusion CORELINK F3D CERVICAL FDA Start: 12-17-2021 Discectomy, spine, cervical, anterior approach, with fusion PATCH,AMNION 2X3CM FDA Start: 12-17-2021 Discectomy, spine, cervical, anterior approach, with fusion STRIP,BONE CANC [id number] FDA Start: 12-17-2021 Discectomy, spine, cervical, anterior approach, with fusion 3.5 x 14 mm Variable Screws FDA Start: 06-09-2023 Discectomy, spine, cervical, anterior approach, with fusion 3.5 x 14 mm Variable Screws FDA Start: 06-09-2023 Discectomy, spine, cervical, anterior approach, with fusion PATCH,AMNION 2X3CM FDA Start: 06-09-2023 Discectomy, spine, cervical, anterior approach, with fusion STRIP,BONE CANC [id number] FDA Start: 06-09-2023 Discectomy, spine, cervical, anterior approach, with fusion Stand-Alone Cervical Corelink Cage 7mm FDA Start: 06-09-2023 Goals Date Patient Goal Desired Activity /State Functional Status Date Assessment Result Facility 06-10-2023 Functional status Chair [facility] Work Phone: 12-18-2021 Functional status Bathroom Privilege [facility] Work Phone: Mental Status Date Assessment Result Facility 06-10-2023 Cognitive function Level Of Cons ciousness Awake;Alert;Appropriate;Follow s Commands [facility] Work Phone: 06-10-2023 Cognitive function Voice/Name [facility] Work Phone: 12-18-2021 Cognitive function Voice/Name [facility] Work Phone: 08-01-2021 Cognitive function Level Of Cons ciousness Awake;Alert;Appropriate;Follow s Commands [facility] Work Phone: Clinical Notes 10-22-2020 to 09-08-2024 Note Date & Type Note Facility 09-08-2024 Evaluation note Diagnosis Onset Date Resolution Climacteric acute August 8:41am Hormone replacement therapy acute September 08, 8:41am Migraine headache without aura acute September 08 025 8:41am Fatigue acute December 14, 2024 7:52am Migraine headache without aura acute December 14, 2024 7 :52am Paresthesias acute December 14 7:52am [facility] Work Phone: 1(195) 452-313012-02-2024 [facility] Medical Records Department [address] [place] [address] History Physical Exam 06/13/24 0719 MR#: [id number] Acct: [id number] Name: TIERRA MALCOLM Rep #: [id number] : 1975 49 From: Winsome Rangel MD PCP: Dr. Breezy Alegria MD Status:REG [facility] Location: [place] [address] HPI - General General Date of Service: 06/13/24 HPI Narrative TIERRA MALCOLM, is a 49 F who presents for a screening colonoscopy due to family history of colon cancer in her dad???in his 50s. Patient's last colonoscopy was 12/2018 negative. Patient has bowel movements daily denies any blood. Patient denies any chronic abdominal pain/nausea/vomiting and only occasional reflux depending what she eats.. [facility] Medical History (Updated 06/08/24 @ 09:52 by Katy Pollard) PONV (postoperative nausea and vomiting) Non-smoker High cholesterol Heartburn COVID-19 Anemia Rheumatoid arthritis Home Medications ???Medication ???Instructions ???Recorded ???Last Taken ???Type coenzyme Q10 100 mg capsule 100 mg PO QHS SUPPLEMENT 12/05/21 06/08/23 History (CoQ-10) diphenhydramine HCl 25 mg capsule 25 mg PO QHS PRN Insomnia 12/05/21 06/08/23 History (Sleep Aid (diphenhydramine)) rosuvastatin 10 mg tablet (Crestor) 10 mg PO QHS CHOLESTEROL 12/05/21 06/08/23 History etanercept 50 mg/mL (1 mL) 50 mg subcut QWEEK 11/14/22 05/29/23 History subcutaneous syringe (Enbrel) ondansetron HCl 4 mg tablet 4 mg PO TID PRN nausea and 08/17/23 Unknown Rx vomiting #90 tabs ascorbic acid (vitamin C) 500 mg 1 g PO DAILY SUPPLEMENT 12/16/23 Unknown History tablet (Vitamin C) cholecalciferol (vitamin D3) 25 5,000 unit PO DAILY SUPPLEMENT 12/16/23 Unknown History mcg (1,000 unit) tablet sumatriptan succinate 50 mg tablet 50 mg PO .COMPLEX #9 tabs 01/07/24 Unknown Rx leflunomide 20 mg tablet 20 mg PO QDAY 05/27/24 Unknown History meloxicam 15 mg tablet 15 mg PO QDAY 05/27/24 Unknown History vitamin A 2,400 mcg capsule 2,400 mcg PO QDAY 05/27/24 Unknown History levothyroxine 88 mcg tablet 88 mcg PO DAILY 06/08/24 Unknown History Allergy/AdvReac Type Severity Reaction Status Date / Time No Known Allergies Allergy Verified 06/08/24 09:15 Family History (Updated 05/27/24 @ 09:16 by Brenda Simental) Father Colon cancer, Onset Age: 50 Survives Son Asthma Mother Hypertension Surgical History Hx of colonoscopy S/P cervical spinal fusion (06/09/23) History of endometrial ablation h/o finger surgery s/p tonsillectomy S/P tubal ligation S/P Social History household members: spouse current occupational status: employed 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 Smoking Status: Never smoker alcohol intake: current alcohol intake frequency: holidays/special occasions only substance use type: does not use seatbelt use: always do you feel safe at home: Yes additional social history: - Dwight- Owns a [email or web address] Past Medical/Surgical History Planned Operation Planned Operative Procedure(s): CSCOPE S.O.S: No Previous Hospitalizations/Surgeries HX Hospitalizations: Yes (NECK FUSION) HX of Surgeries: R HAND MIDDLE FINGER BROKEN T A TUBAL RA Any Problems With Anesthesia: Yes (PONV) You/Your Family Experience Fever (Hyperthermia) With Anes: No Cholinesterase deficiency: No Cardiovascular Hx Chest Pain within Last 2 months: No Hx of Irregular Heartbeat and/or Afib: No Hx Heart Attack: No Hx Congestive Heart Failure: No Hx Rheumatic Fever: No Hx Hypertension: No Hx Internal Defibrillator: No Hx Pacemaker: No Hx Cardiac Catheterization: No Hx Cardiac Surgery/Stents/Etc.: No Hx Stress Test: No Hx Pain in Legs when Walking/Leg Cramps: No Respiratory Chronic Cough: No HX of Shortness of Breath: No Hoarseness: No Hx Chronic Obstructive Pulmonary Disease (COPD): No Hx Asthma: No Hx Emphysema: No Hx Sleep Apnea: No Hx Respiratory Tract Infection/Cold (presently): No Do You Snore Loudly (louder than talking or can be heard): No Do You Often Feel Tired/ Fatigued/ Sleepy Dring Daytime?: No Has Anyone Observed You Stop Breathing During Sleep?: No Result (for STOP score): Negative Hx Smoking: No Smoking Status: Never smoker Gastrointestinal Controlled With Meds: Yes (ZANTAC PRN) Hx Gastrointestinal Disorders: No Hx Gastrointestinal Bleed: No Hx Ulcer: No Hx Hiatal Hernia: No Difficulty Chewing/Swallowing: No Special diet followed at home: No Hx Unplanned Weight Loss of 20#: No HX Unplanned Weight Gain of 20#: No Neurological Hx Seizures: No HX Syncope/Blackout Spells/Unconsciousness: No Hx Transient Ischemic Attacks (TIA): No Hx Multiple Sclerosis: No Hx Parkinson's Disease: No (more content not included)...[facility]02-21-2024 NotePap Smear Specimen AdequacyFebruary 2023 1:30pmComment.Satisfactory for evaluation. No endocervical component is identified.[facility] INTER[facility]ACED A#[id number] Fostoria Community HospitalComment on above:Satisfactory for evaluation. No endocervical component is identified.09-02-2023 NotePap Smear QC ReviewFebruary 2023 1:30pmComment.Delia Tapia, Supervisory Fitter/Welder (ASCP)[facility] INTER[facility] A#[id number] Fostoria Community HospitalCombeaumont [facility] on above:Delia Tapia, Supervisory Fitter/Welder (ASCP)09-02-2023 NotePap Smear Specimen AdequacyFebruary 2023 1:30pmComment.Satisfactory for evaluation. No endocervical component is identified.[facility] A#[id number] Fostoria Community HospitalComment on above:Satisfactory for evaluation. No endocervical component is identified. 09-02-2023 NotePap Smear QC ReviewFebruary 2023 1:30pmComment.Delia Tapia Supervisory Fitter/Welder (ASC)[facility] INTER[facility] A#[id number] Hospital on above:Delia Tapia Supervisory Fitter/Welder ([facility])06-09-2023 Progress note Author [facility] June 09, 2023 8:22pm Note Date/Time June 09, 2023 5:02pm [facility] Medical Records Department [address] [place] [address] Progress Note - Hospitalist 06/09/23 1655 MR#: [id number] Acct: [id number] Name: TIERRA MALCOLM Rep #:[id number] : 1975 48 From: John lopes DO PCP: Dr. Breezy Alegria MD Status:DUSTY TEJEDA [place] [facility] [id number] Reason for Visit Reason for Visit: Diagnoses Encounter for other preprocedural examination (06/09/23) Subjective Subjective Orthopedic surgery primary, patient had surgery done for herniated cervical discearlier today. Medicine consulted for medical management. Patient seen at bedside this evening after her procedure. Patient was lying in bed with lights off, was present at bedside. Patient and state that she has hada significant headache since leaving the operating room. She does have a history of headaches and this feels fairly similar to those headaches. Typically takes Aleve at home for headaches with moderate relief. Patient otherwise denies any significant neck pain postoperatively. She denies any fevers or chills, chest pain, shortness of breath. No other acute pain or discomfort. No other acute concerns this time. Objective Data Objective Data Vital Signs: Vital Signs Temp Pulse Resp BP Pulse Ox O2 Del Method O2 Flow Rate 98.0 F 97 18 132/71 H 100 Room Air 4 06/09/23 15:38 06/09/23 15:38 06/09/23 15:38 06/09/23 15:38 06/09/23 15:38 06/09/23 16:13 06/09/23 13:12 Oxygen Flow Rate (L/min) 4 Oxygen Delivery Method Room Air Weight: 77.655 kg Body Mass Index (BMI) 30.3 Intake & Output: Intake and Output for Last 24 Hours 06/07/23 06/08/23 06/09/23 23:59 23:59 23:59 Intake Total 413.25 / 413.25 Output Total 70 / 70 Balance 343.25 / 343.25 Lab / Micro Data 05/29/23 09:03 05/29/23 09:03 Labs: Laboratory Results - last 24 hr 06/09/23 05:59: POC Glucose 87 Micro: Microbiology 05/29/23 09:03 Swab (Method) Nasal Screen MRSA/MSSA - Final Radiography Diagnostic Testing: Radiology Impression Spine X-Ray 06/09/23 08:25 IMPRESSION: The localization instrument is seen along the anterior inferior aspect of the C6 vertebrae. Prior fusion at the C5-C6 level with prosthetic disc placement. Electronically Signed: Jerome Fay MD at 8:58 EST , Spine X-Ray 06/09/23 09:57 IMPRESSION: The localization instrument is seen along the C6-C7 disc space level. Electronically Signed: Jerome Fay MD at 10:44 EST , Spine X-Ray 06/09/23 11:15 IMPRESSION: Anterior cervical fusion at the C6-C7 level with prosthetic disc placement. Electronically Signed: Jerome Fay MD at 12:27 EST , Physical Exam Const alert, oriented x3, no apparent distress, healthy appearing and well nourished Constitutional Narrative: Pleasant middle-age female, obese, laying comfortably in bed, conversing normally, in mild distress due to headache. General Appearance: cooperative and comfortable HEENT normocephalic, head/scalp atraumatic, hearing grossly normal bilaterally, nasal mucous membranes and turbinates normal and moist oral mucous membranes Eyes PERRL, EOMs intact bilaterally and conjunctivae normal Neck no lymphadenopathy and supple Neck Narrative: Surgical site appears grossly normal. Lymph Lymphatic: no lymphadenopathy noted Chest inspection of chest normal Resp normal respiratory effort, normal air movement, no use of accessory muscles and clear to auscultation bilaterally Cardio regular rate, regular rhythm, no murmurs and peripheral pulses 2+ throughout GI normal to inspection, nondistended, normoactive bowel sounds, soft to palpation,non-tender and non-distended Back/Spine normal ROM Extremity normal to inspection, full ROM and no pedal edema Skin no rashes or lesions noted Neuro moves all extremities and no focal motor deficits Speech: speech normal Psych mental status grossly normal Assessment & Plan Assessment/Plan (1) Herniated nucleus pulposus, C6-7: (2) S/P cervical spinal fusion: PLAN: Plan Patient is a 48-year-old female who presented to [facility] on 06/09/2023 for a planned procedure for herniated disc at C6-7. Medicine consulted postoperatively for medical management. 1. Herniated disc C6-7 on the right S/p anterior cervical fusion C6-7, insertion of stand-alone cage C6-[address] Guthrie with orthopedics on 06/09. Patient tolerated procedure well, no immediate postoperative complications. ? Orthopedic surgery primary. Pain management with scheduled Tylenol, IV morphine as needed, p.o. oxycodone as needed. PT/OT/case management following. Follow-up a.m. labs. If patient remains stable, likely discharge home tomorrow. 2. Postoperative headache ? Patient reports history of headaches, and postoperative headache is similar toprevious headaches. Vitals stable, neuro exam grossly normal. On scheduled Tylenol for pain as noted above. Will give headache cocktail of IV Benadryl andIV Compazine once, monitor response. Chronic medical conditions: ? Hyperlipidemia: Continue home rosuvastatin ? Rheumatoid arthritis: Continue etanercept weekly on discharge. DVT prophylaxis: Lovenox CODE STATUS: Full code, unverified Expected disposition: Home, tomorrow Total clinical time spent by myself addressing the patient's medical issues, reviewing all the data, and collaborating with patient's care team: 25 minutes. Charges/Coding Visit Charges Inpatient E&M: [address] [facility] [[email or web address] Hosp L1 06/09/232021 <Electronically signed by John Ennis DO> Cosigner Signature (if applicable): CC: ~ Signed [facility] Work Phone: 1(339) 594-715411-28-2023 Procedure [facility] 06-08-2023 History and physical note Author Gerardo Guthrie [facility] June 08, 2023 3:53pm Note Date/Time June 08, 2023 3:53pm [facility] Medical Records Department [address] [place] [address] History & Physical Exam 06/08/23 1553 MR#: [id number] Acct: [id number] Name: GOLDTIERRA SATYA Rep #:[id number] : 1975 48 From: Gerardo Abdi PCP: Dr. Breezy Alegria MD Status:PA E [facility] Location: [facility] [place] History and Physical [id number] Acct: [id number] Name: GOLDMARIA LUISAKristyn HERNADEZ Rep #: [id number] : 1975 Provider: Dr. Gerardo Guthrie DO Age/Sex: 47/F [place] [facility] [place] Status: Signed Intake Vital Signs 10/22/2311:46 Height 5 ft 3 in Intake Visit Reasons: CERVICAL SPINE Chief Complaint: cervical pain Is patient in pain?: Yes Allergies No Known Allergies Allergy (Verified 08/14/22 10:38) Medications naproxen sodium 220 mg capsule (Aleve) 220 mg PO BID PRN Pain 11/29/18 [History Confirmed 10/24/22] cholecalciferol (vitamin D3) 25 mcg (1,000 unit) tablet 1,000 unit PO DAILY SUPPLEMENT 12/20/18 [History Confirmed 10/24/22] abatacept 125 mg/mL subcutaneous auto-injector (Orencia ClickJect) 125 mg subcutQWEEK RA 12/05/21 [History Confirmed 10/24/22] ascorbic acid (vitamin C) 500 mg tablet (Vitamin C) 1,000 mg PO DAILY OPUXXMOULO76/26/22 [History Confirmed 10/24/22] coenzyme Q10 100 mg capsule (CoQ-10) 100 mg PO DAILY SUPPLEMENT 12/05/21 [History Confirmed 10/24/22] diphenhydramine HCl 25 mg capsule (Sleep Aid (diphenhydramine)) 25 mg PO QHS PRNInsomnia 12/05/21 [History Confirmed 10/24/22] mecobalamin (vitamin B12) 1,000 mcg chewable tablet (B12 Active) 1,000 mcg PO DAILY SUPPLEMENT 12/05/21 [History Confirmed 10/24/22] rosuvastatin 10 mg tablet (Crestor) 10 mg PO QHS CHOLESTEROL 12/05/21 [History Confirmed 10/24/22] vitamin A 2,400 mcg capsule 2,400 mcg PO DAILY SUPPLEMENT 12/05/21 [History Confirmed 10/24/22] hydroxychloroquine 200 mg tablet tablet PO 03/10/22 [History Confirmed 10/24/22] PFSH Medical History Anemia Heartburn High cholesterol Rheumatoid arthritis Surgical History h/o finger surgery History of endometrial ablation S/P s/p tonsillectomy S/P tubal ligation Family History Father Colon cancerSon AsthmaMother Hypertension Social History Smoking Status: Never smoker alcohol intake: current alcohol intake frequency: holidays/special occasions only HPI CERVICAL SPINE Details: Parts of this documentation were recorded by a scribe, this documentation accurately reflects the service provided and the decisions made by me, Dr. Gerardo Guthrie, DO 10/24/22 1026. TIERRA MALCOLM is a 47 year old F here today for F/U on her cervical spine pain. She states that she had a total of 3 injections in the cervical spine which did not help her at all. She denies any new imaging since the last visit. hx of anterior cervical interbody fusion C5-6 DOS: 12/17/21.This is a pinpoint spot over the right side of her cervical spine that is painful.?She states this pain is constant. her pain is a constant 5/10. She now has a pain over the left side of the neck which is pinpoint as well. However it is not as bad as the right side. SHe states that the pain is now more prominent on the right side than theleft side. She has also now been having headaches which is happening daily, somedays the headaches can be more intense than others. She states that her hands are also starting to fall sleep at night now. She is also having some dizziness when she lays flat on her back now. She has tried and failed massage, gabapentinand stretching. Returns for follow-up. Her pain is getting worse. She has posterior cervical tension cephalgia. Her neck pain is getting worse at the base of her neck. It starting to radiate down the back of both shoulders. Worse on the right side. It started going to the right arm. This is very disconcerting. On examination she has more pain with flexion than extension when we load the discs. Triceps strength is decreased on the right side compared to the left. She is areflexic of the right triceps reflex. All her symptoms that suggest that she has now herniated the C6-7 disc the levelbelow the fusion. We are ordering an MRI scan of the cervical spine to be done as soon as possible. I will see her after the MRI scan and make further recommendations. Note that she has failed all conservative measures including massage, epidural and facet injections, home exercise program among others. Hence the need for anMRI scan of the cervical spine. Coding Level of Care Code Off vis,est,level 3 Diagnoses S/P cervical spinal fusion Z98.1 Herniated nucleus pulposus, C6-7 M50.223 06/08/23 1553 <Electronically signed by Gerardo Guthrie DO> Cosigner Signature (if applicable): CC: Dr. Breezy Alegria MD; Dr. Gerardo Guthrie DO~ Signed [facility] Work Phone: 1(851) 292-355210-11-2023 Procedure [facility] 06-03-2022 NotePap Smear Specimen AdequacyNovember 2021 8:34amComment. Satisfactory for evaluation. Endocervical and/or squamous metaplasticcells (endocervical component)are present.[facility] INTER[facility]ACED A#[id number] Fostoria [facility] Hospital Work Phone: Comment on above:Satisfactory for evaluation. Endocervical and/or squamous metaplasticcells (endocervical component)are present.05-01-2022 NoteHNO ID: [id number] Author: Tasneem Samuel APRN.HAND BOX COVERER Service: Anesthesiology Author Type: Nurse Genetics Teacher Type: Anesthesia Procedure Notes Filed: 05/01/2022 4:38 PM Note Text: ANESTHESIOLOGY PROCEDURE NOTE Airway General Information Procedure Start Time/Medication Administration: 05/01/2022 4:36 PM Patient location during procedure: OR Timeout Performed Pre-procedure: timeout performed Consent Obtained: Yes Patient identity confirmed: arm band and patient Staffing Anesthesiologist: Hugh Espinal DO HAND BOX COVERER: Tasneem Samuel APRN.HAND BOX COVERER Performed by: HAND BOX COVERER Indications and Patient Condition Indications for airway management: anesthesia Preoxygenated: yes anesthesia circuit Patient position: sniffing Method: asleep Final Airway Details Final airway type: supraglottic airway Number of attempts at approach: 1 Final Supraglottic Airway: LMA Classic Size 3 Seal Adequate: yes SIGNATURE: Tasneem Samuel APRN.HAND BOX COVERER PATIENT NAME: Tierra Malcolm DATE: May 01, 2022 TIME: 4:37 PM CSN: [id number] [facility]10-19-2022 NoteHNO ID: [id number] Author: Nancy Leo MD Service: Anesthesiology Author Type: Physician Type: Progress Notes Filed: 04/30/2022 4:15 PM Note Text: Summary: DOS MEDS PATIENT MEDICATION INSTRUCTIONS Please read below carefully for your personalized instructions. Medications: If you are on blood thinner or anticoagulants including aspirin, please confirm with your surgical team on when to stop these medications. Unless instructed differently by your surgical team, stay on all of your medications until your surgery. Pre-Surgery Med Instructions Medication Instructions naproxen sodium (ALEVE ORAL) Ibuprofen 200 mg cap acetaminophen (TYLENOL) 325 mg tablet As needed hydroxychloroquine sulfate (PLAQUENIL ORAL) Okay to take if prescribing physician recommends it with this OR. ORENCIA CLICKJECT 125 mg/mL Same instruction as above for Plaquenil rosuvastatin (CRESTOR) 10 mg tablet Zinc 50 mg tab Follow Surgeon's instructions VITAMIN A ORAL Follow Surgeon's instructions ascorbic acid (VITAMIN C ORAL) Follow Surgeon's instructions cholecalciferol, vitamin D3, (VITAMIN D3 ORAL) Follow Surgeon's instructions If you have any medication changes between receiving these instructions and your surgery date, please provide this updated information with the nurse who calls you the week day prior to your surgical procedure so we can update your list and provide you with updated instructions for the morning of your procedure.[facility]01-07-2022 SARS-CoV RNA FRANCES+probe Ql (Unsp spec)Coronavirus 2019 (FRANCES)July 20, 2021 12:59amDetectedNot DetectedPatients who have a positive COVID-19 test result may nowhave treatment options. Treatment options are available forpatients with mild to moderate symptoms and forhospitalized patients. Visit our website [email or web address] for resources andinformation.This nucleic acid amplification test was developed and itsperformance characteristics determined by [employer]. Nucleic acid amplification tests include RT-PCR and TMA. This test has not been FDA cleared orapproved. This test has been authorized by FDA under anEmergency Use Authorization (EUA). This test is onlyauthorizedfor the duration of time the declaration thatcircumstances exist justifying the authorization of theemergency use of in vitro diagnostic tests for detection [id number] virus and/or diagnosis of COVID-19 infectionunder section 564(b)(1) of the Act, 21 U.S.C. 360bbb-3(b)(1), unless the authorization is terminated or revokedsooner.When diagnostic testing is negative, the possibility of afalse negative result should be considered in the contextof a patient's recent exposures and the presence ofclinical signs and symptoms consistent with COVID- 19. Anindividual without symptoms of COVID-19 and who is notshedding SARS-CoV-2 virus would expect to have a negative(not detected) result in this assay.[facility] INTERFACED A#[id number] Fostoria [facility] Hospital Work Phone: Comment on above:Patients who have a positive COVID-19 test result may nowhave treatment options. Treatment options are available forpatients with mild to moderate symptoms and forhospitalized patients. Visit our website [email or web address] for resources andinformation.This nucleic acid amplification test was developed and itsperformance characteristics determined by [employer]. Nucleic acid amplification tests include RT- PCR and TMA. This test has not been FDA cleared orapproved. This test has been authorized by FDA under anEmergency Use Authorization (EUA). This test is onlyauthorizedfor the duration of time the declaration thatcircumstances exist justifying the authorization of theemergency use of in vitro diagnostic tests for detection [id number] virus and/or diagnosis of COVID-19 infectionunder section 564(b)(1) of the Act, 21 U.S.C. 360bbb-3(b)(1), unless the authorization is terminated or revokedsooner.When diagnostic testing is negative, the possibility of afalse negative result should be considered in the contextof a patient's recent exposures and the presence ofclinical signs and symptoms consistent with COVID-19. Anindividual without symptoms of COVID-19 and who is notshedding SARS-CoV-2 virus would expect to have a negative(not detected) result in this assay.03-28-2021 NoteHNO ID: [id number] Author: Savannah oGmez, DO Service: ? Author Type: Physician Type: Progress Notes Filed: 03/28/2021 9:26 AM Note Text: Tierra Malcolm is a 45 year old female who presents with a chief complaint of Post Op SUBJECTIVE She presents as a follow-up 3 months from her [facility] hysteroscopy and endometrial ablation. She states she still has periods but they are very light to the point where she does not really need a tampon. She is doing well denies any problems. She is very happy with her surgery. 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 - PONV (postoperative nausea and vomiting) - Rheumatoid arthritis (HCC) PAST SURGICAL HISTORY Procedure Laterality Date - BREAST BIOPSY Left 01/2020 - LIGATE FALLOPIAN TUBE 05/23/2005 - NRV DESTR RFA, CHEM OTHER 12/25/2020 - PAST SURGICAL HISTORY OF right hand repair - PAST SURGICAL HISTORY OF tonsillectomy - PAST SURGICAL HISTORY OF Social History Tobacco Use - Smoking status: Never Smoker - Smokeless tobacco: Never Used Vaping Use - Vaping Use: Never used Substance Use Topics - Alcohol use: No Comment: once a year - Drug use: No FAMILY HISTORY Problem Relation Age of Onset - Colon Cancer Father - Skin Cancer Mother Obstetric History T0 L0 SAB0 TAB0 Ectopic0 Multiple0 Live Births0 OBJECTIVE ALLERGIES No Known Allergies Current Outpatient Medications Medication Sig - CEPHALEXIN ORAL Take by mouth. - ORENCIA CLICKJECT 125 mg/mL - rosuvastatin (CRESTOR) 10 mg tablet Take 10 mg by mouth once daily. - predniSONE 10 mg tablet pack Take 10 mg by mouth once daily. - Zinc 50 mg tab Take 50 mg by mouth once daily. - VITAMIN A ORAL Take by mouth. - ascorbic acid (VITAMIN C ORAL) Take 500 mg by mouth once daily. - cholecalciferol, vitamin D3, (VITAMIN D3 ORAL) Take 50,000 mg by mouth one time a week. - ibuprofen (MOTRIN) 600 mg tablet Take 1 tablet by mouth every 6 hours as needed for pain. No current facility-administered medications for this visit. Review of Systems Constitutional: Denies weight loss, weight gain, fever Eyes: Negative vision changes ENT/Mouth: No ulcers, sinusitis, tinnitus Cardiovascular: Denies LEYVA, Edema, palpitations, chest pain Respiratory: Denies wheezing, hemoptysis, SOB, cough Gastrointestinal: Denies diarrhea, bloody stool, constipation Genitourinary: See HPI Musculoskeletal: Denies muscle weakness Skin/breast: Denies discharge, masses, rash, ulcers Neurological: Denies syncope, seizures, numbness Physical Exam BP 119/75 Ht 5' 3 (1.60m) Wt 175 lb (79.4kg) LMP 12/25/2020 BMI 31.01 kg/(m2). General: No Acute Distress, Well nourished, Well developed, No obvious deformities and Alert/Oriented x 3 Mood/Affect: Normal HEENT: Normocephalic, Atraumatic and Grossly Within Normal Limits GI: Abdomen soft, non-tender, no masses, Liver/spleen non-palpable, No hernias and Normoactive bowel sounds Skin: Intact, no lesions ASSESSMENT/PLAN: 1. Menorrhagia with regular cycle - ICD9: 626.2, ICD10: N92.0 Menorrhagia has resolved. Follow-up with Dr. Mae for annual [facility]annah Gomez [facility]08-12-2021 NoteHNO ID: [id number] Author: RT Chin(R) Service: ? Author Type: Sledger Type: Progress Notes Filed: 02/21/2021 8:27 AM Note Text: Radiology Service Progress Note PATIENT NAME: Tierra Malcolm DATE OF SERVICE: February 21, 2021 TIME: 8:26 AM PATIENT IDENTITY VERIFICATION COMPLETED USING TWO (2) IDENTIFIERS: Name and Date of confirmed by patient verbally. FALL SCREENING: Has the patient had 2 falls in the last year or 1 fall with injury or currently using an Ambulatory Assistive Device (Walker, Cane, Wheelchair, Crutches, etc.)? No PATIENT GENDER DATA: Female. status: : No status: N/A PATIENT RELEVANT IMPLANT DATA REVIEWED: Not Applicable RADIOLOGY DEPARTMENT: Mammography PERIPHERAL IV DATA: Not applicable SIGNED BY: RT Chin(R) February 21, 2021 8:26 [facility]06-28-2021 NoteHNO ID: [id number] Author: Savannah Gomez, DO Service: ? Author Type: Physician Type: Progress Notes Filed: 01/07/2021 10:00 AM Note Text: Tierra Malcolm is a 45 year old female who presents with a chief complaint of Post-Op Visit SUBJECTIVE Presents 2 weeks postop [facility] hysteroscopy and endometrial ablation. She is doing well denies any problems. We went over her surgery and her pathology together. She states that her discharge is watery and blood-tinged. This sounds good for the procedure she had. 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 - PONV (postoperative nausea and vomiting) - Rheumatoid arthritis (HCC) PAST SURGICAL HISTORY Procedure Laterality Date - BREAST BIOPSY Left 01/2020 - LIGATE FALLOPIAN TUBE 05/23/2005 - NRV DESTR RFA, CHEM OTHER 12/25/2020 - PAST SURGICAL HISTORY OF right hand repair - PAST SURGICAL HISTORY OF tonsillectomy - PAST SURGICAL HISTORY OF Social History Tobacco Use - Smoking status: Never Smoker - Smokeless tobacco: Never Used Vaping Use - Vaping Use: Never used Substance Use Topics - Alcohol use: No Comment: once a year - Drug use: No FAMILY HISTORY Problem Relation Age of Onset - Colon Cancer Father - Skin Cancer Mother Obstetric History T0 L0 SAB0 TAB0 Ectopic0 Multiple0 Live Births0 OBJECTIVE ALLERGIES No Known Allergies Current Outpatient Medications Medication Sig - ibuprofen (MOTRIN) 600 mg tablet Take 1 tablet by mouth every 6 hours as needed for pain. - ORENCIA CLICKJECT 125 mg/mL - rosuvastatin (CRESTOR) 10 mg tablet Take 10 mg by mouth once daily. - predniSONE 10 mg tablet pack Take 15 mg by mouth once daily. - Zinc 50 mg tab Take 50 mg by mouth once daily. - VITAMIN A ORAL Take by mouth. - ascorbic acid (VITAMIN C ORAL) Take 500 mg by mouth once daily. - cholecalciferol, vitamin D3, (VITAMIN D3 ORAL) Take 50,000 mg by mouth one time a week. No current facility-administered medications for this visit. Review of Systems Constitutional: Denies weight loss, weight gain, fever Eyes: Negative vision changes ENT/Mouth: No ulcers, sinusitis, tinnitus Cardiovascular: Denies LEYVA, Edema, palpitations, chest pain Respiratory: Denies wheezing, hemoptysis, SOB, cough Gastrointestinal: Denies diarrhea, bloody stool, constipation Genitourinary: See HPI Musculoskeletal: Denies muscle weakness Skin/breast: Denies discharge, masses, rash, ulcers Neurological: Denies syncope, seizures, numbness Physical Exam BP 110/77 Ht 5' 3 (1.60m) Wt 171 lb (77.6kg) LMP 12/25/2020 BMI 30.30 kg/(m2). General: No Acute Distress, Well nourished, Well developed, No obvious deformities and Alert/Oriented x 3 Mood/Affect: Normal HEENT: Normocephalic, Atraumatic and Grossly Within Normal Limits GI: Abdomen soft, non-tender, no masses, Liver/spleen non-palpable, No hernias and Normoactive bowel sounds Skin: Intact, no lesions ASSESSMENT/PLAN: 1. 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 Staffing Anesthesiologist: Nikolas Mcmullen MD HAND BOX COVERER: Pietro Krueger APRN.HAND BOX COVERER Performed by: HAND BOX COVERER Indications and Patient Condition Preoxygenated: yes Indications for airway management: anesthesia and airway protection anesthesia circuit Method: asleep Final Airway Details Final airway type: supraglottic airway Number of attempts at approach: 1 Final Supraglottic Airway: LMA ProSeal Size 1 Seal Adequate: yes Failed airway: no Unrecognized esophageal intubation: no Airway not difficult SIGNATURE: Pietro Krueger APRN.CRNA PATIENT NAME: Tierra Malcolm DATE: December 25, 2020 TIME: 8:07 AM [id number] NoteHNO ID: [id number] Author: Savannah Gomez, DO Service: ? Author Type: Physician Type: Progress Notes Filed: 11/27/2020 1:52 PM Note Text: Tierra Malcolm is a 45 year old female who presents with a chief complaint of Pre-Op Visit (Sign surgery consent) SUBJECTIVE Patient presents for preop for her [facility] hysteroscopy and endometrial ablation. We went over the risk, benefits, the major minor complications, signed consent form. 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 - Rheumatoid arthritis (HCC) PAST SURGICAL HISTORY Procedure Laterality Date - BREAST BIOPSY Left 01/2020 - PAST SURGICAL HISTORY OF right hand repair - PAST SURGICAL HISTORY OF tonsillectomy - PAST SURGICAL HISTORY OF Social History Tobacco Use - Smoking status: Never Smoker - Smokeless tobacco: Never Used Vaping Use - Vaping Use: Never used Substance Use Topics - Alcohol use: No Comment: once a year - Drug use: No FAMILY HISTORY Problem Relation Age of Onset - Colon Cancer Father - Skin Cancer Mother Obstetric History T0 L0 SAB0 TAB0 Ectopic0 Multiple0 Live Births0 OBJECTIVE ALLERGIES No Known Allergies Current Outpatient Medications Medication Sig - rosuvastatin (CRESTOR) 10 mg tablet Take 10 mg by mouth once daily. - predniSONE 10 mg tablet pack Take 15 mg by mouth once daily. - Zinc 50 mg tab Take 50 mg by mouth once daily. - VITAMIN A ORAL Take by mouth. - ascorbic acid (VITAMIN C ORAL) Take 500 mg by mouth once daily. - cholecalciferol, vitamin D3, (VITAMIN D3 ORAL) Take 50,000 mg by mouth one time a week. - predniSONE (DELTASONE) 10 mg tablet TAKE THREE TABLETS BY MOUTH ONCE DAILY FOR 10 DAYS THEN TAKE TWO TABLETS ONCE DAILY FOR 10 DAYS THEN TAKE ONE AND ONE HALF TABLET DAILY UNTI - predniSONE (DELTASONE) 20 mg tablet TAKE 4 TABLETS BY MOUTH ONCE DAILY FOR 3 DAYS THEN 3 TABS ONCE DAILY FOR 3 DAYS THEN 2 TABS ONCE DAILY FOR 3 DAYS THEN 1 TAB DAILY FOR 3 DAY - ubidecarenone/vitamin E mixed (COQ10 SG 100 ORAL) Take 100 mg by mouth once daily. (Patient not taking: Reported on 11/27/2020 ) - dexAMETHasone (DECADRON) 4 mg tablet Take 1 tablet by mouth daily with breakfast. - albuterol HFA (PROVENTIL HFA, VENTOLIN HFA) 90 mcg/actuation inhaler Inhale 2 Puffs as instructed every 4 hours as needed for Wheezing/Shortness of Breath. - ENBREL SURECLICK 50 mg/mL (1 mL) 1 mL one time a week. - leucovorin (LEUCOVORIN) 5 mg tablet 5 mg every Thursday. - methotrexate 2.5 mg tablet 2.5 mg every Thursday. 8 tabs No current facility-administered medications for this visit. Review of Systems Constitutional: Denies weight loss, weight gain, fever Eyes: Negative vision changes ENT/Mouth: No ulcers, sinusitis, tinnitus Cardiovascular: Denies LEYVA, Edema, palpitations, chest pain Respiratory: Denies wheezing, hemoptysis, SOB, cough Gastrointestinal: Denies diarrhea, bloody stool, constipation Genitourinary: See HPI Musculoskeletal: Denies muscle weakness Skin/breast: Denies discharge, masses, rash, ulcers Neurological: Denies syncope, seizures, numbness Physical Exam BP 117/81 Ht 5' 3 (1.60m) Wt 176 lb (79.8kg) LMP 11/01/2020 BMI 31.18 kg/(m2). General: No Acute Distress, Well nourished, Well developed, No obvious deformities and Alert/Oriented x 3 Mood/Affect: Normal HEENT: Normocephalic, Atraumatic and Grossly Within Normal Limits CV: RRR and No murmurs Pulmonary: Clear to auscultation and Equal breath sounds GI: Abdomen soft, non-tender, no masses, Liver/spleen non-palpable, No hernias and Normoactive bowel sounds Skin: Intact, no lesions ASSESSMENT/PLAN: 1. Menorrhagia with irregular cycle - ICD9: 626.2, ICD10: N92.1 Consent signed and ready for surgery Savannah E Biats, [facility]05-18-2021 NotePatient Outreach (VTRIAG) GOLDTIERRA M ([id number]) 1975 F Date Time Provider Department 11/27/20 ELISA BERMUDEZ During your visit today, we recorded the following information about you: Elisa Bermudez PA-C 12/28/2020 3:00 AM Signed Actionable Finding Review. This patient showed up on the actionable finding registry with a abnormal CT chest 07/2020 and I am tasked to assist with this for [place]. Report: There are multiple scattered bilateral pulmonary nodules as detailed above. ?None of these measures greater than 6 mm in size. ?Overall there are approximately 8 nodules. ?Follow-up as below. Repeat CT chest in 3-6 months was recommended and I don't see this done. If you agree this is needed, could you/your office please order? If you feel through shared medical decision making this is / is not needed, please let us know. If / when you feel this is seen to completion, please let me know and I will close this out of the registry. Thank you. Elisa Bermudez PA-C November 27, 2020 8:20 AM Allergies As of Date: 11/27/2020 (No Known Allergies) Date Reviewed: 11/27/2020 Reviewed by: Maria Isabel Connor LPN - Fully Assessed Reason for Visit: Clinical Update [1735] Cmt: Actionable Findings Registry Prescriptions as of 11/27/2020 Sig: ROSUVASTATIN 10 MG TABLET Take 10 mg by mouth once felicia* PREDNISONE 10 MG TABLETS IN A* Take 15 mg by mouth once felicia* X PREDNISONE 10 MG TABLET TAKE THREE TABLETS BY MOUTH O* X PREDNISONE 20 MG TABLET TAKE 4 TABLETS BY MOUTH ONCE * ZINC 50 MG TABLET Take 50 mg by mouth once felicia* X COQ10 SG 100 ORAL Take 100 mg by mouth once sangeetha* Patient not taking: Reported on 11/27/2020 X DEXAMETHASONE 4 MG TABLET Take 1 tablet by mouth daily * X ALBUTEROL SULFATE HFA 90 MCG/* Inhale 2 Puffs as instructed * VITAMIN A ORAL Take by mouth. VITAMIN C ORAL Take 500 mg by mouth once sangeetha* VITAMIN D3 ORAL Take 50,000 mg by mouth one t* X ENBREL SURECLICK 50 MG/ML (1 * 1 mL one time a week. X LEUCOVORIN CALCIUM 5 MG TABLET 5 mg every Thursday. X METHOTREXATE SODIUM 2.5 MG TA* 2.5 mg every Thursday. 8 tabs Problem List As Of Date: 11/27/2020 (None) Encounter Status:Closed by [employer] on 12/28/20[facility] 11-27-2020 NoteHNO ID: [id number] Author: Elisa Bermudez PA-C Service: ? Author Type: Physician Cream Tester Type: Progress Notes Filed: 12/28/2020 3:00 AM Note Text: Actionable Finding Review. This patient showed up on the actionable finding registry with a abnormal CT chest 07/2020 and I am tasked to assist with this for [place]. Report: There are multiple scattered bilateral pulmonary nodules as detailed above. ?None of these measures greater than 6 mm in size. ?Overall there are approximately 8 nodules. ?Follow-up as below. Repeat CT chest in 3-6 months was recommended and I don't see this done. If you agree this is needed, could you/your office please order? If you feel through shared medical decision making this is / is not needed, please let us know. If / when you feel this is seen to completion, please let me know and I will close this out of the registry. Thank you. Elisa Bermudez PA-C November 27, 2020 8:20 [facility]04-27-2021 NoteHNO ID: [id number] Author: RT Chin(Edith) Service: ? Author Type: Sledger Type: Progress Notes Filed: 11/06/2020 8:41 AM Note Text: Radiology Service Progress Note PATIENT NAME: Tierra Maloclm DATE OF SERVICE: November 06, 2020 TIME: 8:40 AM PATIENT IDENTITY VERIFICATION COMPLETED USING TWO (2) IDENTIFIERS: Name and Date of confirmed by patient verbally. FALL SCREENING: Has the patient had 2 falls in the last year or 1 fall with injury or currently using an Ambulatory Assistive Device (Walker, Cane, Wheelchair, Crutches, etc.)? No PATIENT GENDER DATA: Female. status: : No status: NO. PATIENT RELEVANT IMPLANT DATA REVIEWED: Not Applicable RADIOLOGY DEPARTMENT: Ultrasound PERIPHERAL IV DATA: Not applicable SIGNED BY: Chasidy Starks RDMS November 06, 2020 8:40 [facility]04-19-2021 NoteHNO ID: [id number] Author: Savannah Gomez Service: ? Author Type: Physician Type: Progress Notes Filed: 10/29/2020 3:08 PM Note Text: Tierra Malcolm is a 45 year old female who presents with a chief complaint of Consult (consult for ablation) SUBJECTIVE Patient presents as a consult from Dr. Mae for heavy periods. She is due periods are very heavy with a lot of clotting for about 5 days every month. She has been having this problem for some time. She is not on any control at this time. He sent her over for possible endometrial ablation. She has not had an ultrasound done that is up-to-date. She just had her yearly annual from Dr. Mae. 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 - Rheumatoid arthritis (HCC) PAST SURGICAL HISTORY Procedure Laterality Date - BREAST BIOPSY Left 01/2020 - PAST SURGICAL HISTORY OF right hand repair - PAST SURGICAL HISTORY OF tonsillectomy - PAST SURGICAL HISTORY OF Social History Tobacco Use - Smoking status: Never Smoker - Smokeless tobacco: Never Used Vaping Use - Vaping Use: Never used Substance Use Topics - Alcohol use: No Comment: once a year - Drug use: No FAMILY HISTORY Problem Relation Age of Onset - Colon Cancer Father - Skin Cancer Mother Obstetric History T0 L0 SAB0 TAB0 Ectopic0 Multiple0 Live Births0 OBJECTIVE ALLERGIES No Known Allergies Current Outpatient Medications Medication Sig - rosuvastatin (CRESTOR) 10 mg tablet Take 10 mg by mouth once daily. - predniSONE 10 mg tablet pack Take by mouth once daily. - predniSONE (DELTASONE) 10 mg tablet TAKE THREE TABLETS BY MOUTH ONCE DAILY FOR 10 DAYS THEN TAKE TWO TABLETS ONCE DAILY FOR 10 DAYS THEN TAKE ONE AND ONE HALF TABLET DAILY UNTI - predniSONE (DELTASONE) 20 mg tablet TAKE 4 TABLETS BY MOUTH ONCE DAILY FOR 3 DAYS THEN 3 TABS ONCE DAILY FOR 3 DAYS THEN 2 TABS ONCE DAILY FOR 3 DAYS THEN 1 TAB DAILY FOR 3 DAY - Zinc 50 mg tab Take 50 mg by mouth once daily. - ubidecarenone/vitamin E mixed (COQ10 SG 100 ORAL) Take 100 mg by mouth once daily. - VITAMIN A ORAL Take by mouth. - ascorbic acid (VITAMIN C ORAL) Take 500 mg by mouth once daily. - cholecalciferol, vitamin D3, (VITAMIN D3 ORAL) Take 50,000 mg by mouth one time a week. - dexAMETHasone (DECADRON) 4 mg tablet Take 1 tablet by mouth daily with breakfast. - albuterol HFA (PROVENTIL HFA, VENTOLIN HFA) 90 mcg/actuation inhaler Inhale 2 Puffs as instructed every 4 hours as needed for Wheezing/Shortness of Breath. - ENBREL SURECLICK 50 mg/mL (1 mL) 1 mL one time a week. - leucovorin (LEUCOVORIN) 5 mg tablet 5 mg every Thursday. - methotrexate 2.5 mg tablet 2.5 mg every Thursday. 8 tabs No current facility-administered medications for this visit. Review of Systems Constitutional: Denies weight loss, weight gain, fever Eyes: Negative vision changes ENT/Mouth: No ulcers, sinusitis, tinnitus Cardiovascular: Denies LEYVA, Edema, palpitations, chest pain Respiratory: Denies wheezing, hemoptysis, SOB, cough Gastrointestinal: Denies diarrhea, bloody stool, constipation Genitourinary: See HPI Musculoskeletal: Denies muscle weakness Skin/breast: Denies discharge, masses, rash, ulcers Neurological: Denies syncope, seizures, numbness Physical Exam BP 139/79 Ht 5' 3 (1.60m) Wt 176 lb (79.8kg) LMP 10/10/2020 BMI 31.18 kg/(m2). General: No Acute Distress, Well nourished, Well developed, No obvious deformities and Alert/Oriented x 3 Mood/Affect: Normal HEENT: Normocephalic, Atraumatic and Grossly Within Normal Limits GI: Abdomen soft, non-tender, no masses, Liver/spleen non-palpable, No hernias and Normoactive bowel sounds Skin: Intact, no lesions ASSESSMENT/PLAN: 1. Menorrhagia with regular cycle - ICD9: 626.2, ICD10: N92.0 Obtain an ultrasound at [facility] and possibly set up surgery after the results have come back - PELVIC US WHI Savannah Gomez, [facility]04-12-2021 NoteHNO ID: [id number] Author: Harinder Quintanilla Pap Service: ? Author Type: Physician Type: Progress Notes Filed: 10/22/2020 10:41 AM Note Text: Tierra Malcolm is a 45 year old female who presents for annual exam. Breast biopsy negative a year ago. Periods regular every month but getting heavier. S/P TL. HCT 35. Discussed endometrial ablation. Will call Dr. Gomez for ablation if she desires. Due for pap and mammogram. ALLERGIES No Known Allergies Current Outpatient Medications Medication Sig - predniSONE 10 mg tablet pack Take by mouth once daily. - Zinc 50 mg tab Take 50 mg by mouth once daily. - dexAMETHasone (DECADRON) 4 mg tablet Take 1 tablet by mouth daily with breakfast. - albuterol HFA (PROVENTIL HFA, VENTOLIN HFA) 90 mcg/actuation inhaler Inhale 2 Puffs as instructed every 4 hours as needed for Wheezing/Shortness of Breath. - ENBREL SURECLICK 50 mg/mL (1 mL) 1 mL one time a week. - VITAMIN A ORAL Take by mouth. - ascorbic acid (VITAMIN C ORAL) Take 500 mg by mouth once daily. - cholecalciferol, vitamin D3, (VITAMIN D3 ORAL) Take 50,000 mg by mouth one time a week. - leucovorin (LEUCOVORIN) 5 mg tablet 5 mg every Thursday. - methotrexate 2.5 mg tablet 2.5 mg every Thursday. 8 tabs - predniSONE (DELTASONE) 10 mg tablet TAKE THREE TABLETS BY MOUTH ONCE DAILY FOR 10 DAYS THEN TAKE TWO TABLETS ONCE DAILY FOR 10 DAYS THEN TAKE ONE AND ONE HALF TABLET DAILY UNTI - predniSONE (DELTASONE) 20 mg tablet TAKE 4 TABLETS BY MOUTH ONCE DAILY FOR 3 DAYS THEN 3 TABS ONCE DAILY FOR 3 DAYS THEN 2 TABS ONCE DAILY FOR 3 DAYS THEN 1 TAB DAILY FOR 3 DAY - ubidecarenone/vitamin E mixed (COQ10 SG 100 ORAL) Take 100 mg by mouth once daily. No current facility-administered medications for this visit. 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 - Rheumatoid arthritis (HCC) PAST SURGICAL HISTORY Procedure Laterality Date - BREAST BIOPSY Left 01/2020 - PAST SURGICAL HISTORY OF right hand repair - PAST SURGICAL HISTORY OF tonsillectomy - PAST SURGICAL HISTORY OF Social History Tobacco Use - Smoking status: Never Smoker - Smokeless tobacco: Never Used Vaping Use - Vaping Use: Never used Substance Use Topics - Alcohol use: No Comment: once a year - Drug use: No FAMILY HISTORY Problem Relation Age of Onset - Colon Cancer Father - Skin Cancer Mother Review of Symptoms negative Objective BP 137/74 Pulse 87 Temp 98.1 Resp 16 Ht 5' 3 (1.60m) Wt 174 lb (78.9kg) SpO2 100% LMP 10/09/2020 BMI 30.83 kg/(m2). 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 Encounter for annual routine gynecological examination - ICD9: V72.31, ICD10: Z01.419 (primary diagnosis) - Completed pelvic and breast exam - Encouraged monthly BSE - Follow up for annual exam in one year. 2. Encounter for screening mammogram for malignant neoplasm of breast - ICD9: V76.12, ICD10: Z12.31 - Completed pelvic and breast exam - Encouraged monthly BSE - Follow up for annual exam in one year. - MARTHA SCREENING 3. Encounter for Papanicolaou smear for cervical cancer screening - ICD9: V76.2, ICD10: Z12.4 - Completed pelvic and breast exam - Encouraged monthly BSE - Follow up for annual exam in one year. - PAP FLUID CERVICAL SCREENING Harinder Mae, [facility] summary Author Gerardo Guthrie [facility] June 10, 2023 12:13pm Note Date/Time June 10, 2023 12:13pm [facility] Medical Records Department [address] [place] [address] Discharge Summary 06/10/23 1210 MR#: [id number] Acct: [id number] Name: TIERRA MALCOLM Rep #:[id number] : 1975 48 From: Gerardo Abdi PCP: Dr. Breezy Alegria MD Status:DUSTY TEJEDA Location: MS3 MB013-5 Providers Date of Admission: 06/09/23 Primary Care Physician: Dr. Breezy Alegria MD Consultations 06/09/23 12:27 Consult: Hospitalist Routine Consulting Provider: John Ennis Reason for Consult: med management EMERGENT Consult: No MD Notified: Yes Date Notified: 06/09/23 Time Notified: 15: Method of Notification: Text Reason For Visit: Anterior Cervical Fusion C6-7 Diagnosis Discharge Diagnosis (1) Herniated nucleus pulposus, C6-7: Status: Acute Code(s): M50.223 - Other cervical disc displacement at C6-C7 level (2) S/P cervical spinal fusion: Status: Acute Code(s): Z98.1 - Arthrodesis status Plan This is a summary on Tierra Malcolm. Tierra was admitted yesterday 09 June. She has been discharged today the . Upon admission she underwent anterior cervical fusion at C6-7 with a stand-alone cage. On rounds today I changed her dressing and removed her drain. The incision is healing well. She is not having any difficulty swallowing and her voice is clear. She states thatshe does not have much pain at all. The right arm pain is completely resolved and as are her right- sided headaches. She is very pleased with her apparent outcome as I am also. I gave her and her daughter Jordyn directions regarding heractivities. He already has an appointment to see me in the [id number] future I will give her some oxycodone 5 mg/325's for pain at home. This is the end of discharge summary on Tierra Malcolm. This is Dr. Guthrie dictating. Medications at Discharge Home Medications naproxen sodium 220 mg capsule (Aleve) 220 mg PO BID PRN Pain 11/29/18 cholecalciferol (vitamin D3) 25 mcg (1,000 unit) tablet 1,000 unit PO QODAY SUPPLEMENT 12/20/18 ascorbic acid (vitamin C) 500 mg tablet (Vitamin C) 1,000 mg PO QODAY [id number]/26/22 coenzyme Q10 100 mg capsule (CoQ-10) 100 mg PO QHS SUPPLEMENT 12/05/21 diphenhydramine HCl 25 mg capsule (Sleep Aid (diphenhydramine)) 25 mg PO QHS PRNInsomnia 12/05/21 rosuvastatin 10 mg tablet (Crestor) 10 mg PO QHS CHOLESTEROL 12/05/21 etanercept 50 mg/mL (1 mL) subcutaneous syringe (Enbrel) 50 mg subcut QWEEK 11/14/22 Weight / BMI Weight Weight: 171 lb 3.2 oz Body Mass Index (BMI) 30.3 ABG / Lab / Microbiology Data 06/10/23 07:29 06/10/23 07:29 Laboratory: Laboratory Results - last 24 hr 06/10/23 07:29: WBC 11.6 H, RBC 3.55 L, Hgb 11.4 L, Hct 34.1 L, MCV 96.1, MCH 32.1 H, MCHC 33.4, RDW Std Deviation 48.7 H, RDW Coeff of Peggy 13.7, Plt Count 316, MPV 9.9, Sodium 138, Potassium 3.8, Chloride 108 H, Carbon Dioxide 24.0, Anion Gap 6, BUN 7, Creatinine 0.90, Estim Creat Clear Calc 63.92, Est GFR (MDRD) Af Amer 86, Est GFR (MDRD) Non-Af 71, BUN/Creatinine Ratio 7.7 L, [id number] H, Calcium 8.5 Microbiology: Microbiology 05/29/23 09:03 Swab (Method) Nasal Screen MRSA/MSSA - Final Radiography Diagnostic Testing: Radiology Impression Spine X-Ray 06/09/23 11:15 IMPRESSION: Anterior cervical fusion at the C6-C7 level with prosthetic disc placement. Electronically Signed: Jerome Fay MD at 12:27 EST , D/C Instructions May shower in (days): 4 May resume sexual activity in: 4 weeks Meaningful Use Info Meaningful Use Diagnoses (Choose all that apply): None applicable Discharge Plan Admission Admit Date/Time: 06/09/23 11:59 Primary Reason for Your Visit: cervical fusion Attending Provider: Gerardo Guthrie Primary Care Provider: Breezy Alegria Consulting Providers: Paula Cherry Discharge Orders/Prescriptions Prescriptions: No Action naproxen sodium [Aleve] 220 mg capsule 220 mg PO BID PRN (Reason: Pain) Enbrel 50 mg/mL (1 mL) syringe 50 mg subcut QWEEK cholecalciferol (vitamin D3) 1,000 UNIT tablet 1,000 unit PO QODAY ascorbic acid (vitamin C) [Vitamin C] 500 mg Tablet 1,000 mg PO QODAY diphenhydramine HCl [Sleep Aid (diphenhydramine)] 25 mg Capsule 25 mg PO QHS PRN (Reason: Insomnia) coenzyme Q10 [CoQ-10] 100 mg Capsule 100 mg PO QHS rosuvastatin [Crestor] 10 mg Tablet 10 mg PO QHS Other Ambulatory Orders: 12 Lead EKG (Routine) Timeframe: [id number] Location: None Selected Ordered By: Dr. Gerardo Guthrie Referrals / Follow Up: Breezy Alegria MD [Primary Care Provider] - Disposition Disposition (needs filled in before D/C Order can be placed): Home, Self Care 06/10/23 1213 <Electronically signed by Gerardo Guthrie DO> Cosigner Signature (if applicable): CC: Dr. Breezy Alegria MD; Dr. Gerardo Guthrie DO~ Signed [facility] Work Phone: Evaluation note* Diagnosis Onset Date Resolution Status Cervical (neck) region somatic dysfunction acute Neck pain acute [facility] Work Phone: Evaluation note* Diagnosis Onset Date Resolution Status Foraminal stenosis of cervical region acute Foraminal stenosis of cervical region acute Cervical (neck) region somatic dysfunction acute Foraminal stenosis of cervical region acute [facility] Work Phone: Evaluation note* Diagnosis Onset Date Resolution Status Foraminal stenosis of cervical region resolved Foraminal stenosis of cervical region resolved Cervical (neck) region somatic dysfunction resolved Foraminal stenosis of cervical region resolved S/P cervical spinal fusion a cute S/P cervical spinal fusion a cute S/P cervical spinal fusion a cute [facility] Work Phone: Evaluation note* Diagnosis Onset Date Resolution Status Foraminal stenosis of cervical region resolved Foraminal stenosis of cervical region resolved Cervical (neck) region somatic dysfunction resolved Foraminal stenosis of cervical region resolved S/P cervical spinal fusion a cute S/P cervical spinal fusion a cute S/P cervical spinal fusion a cute S/P cervical spinal fusion a [facility] Work Phone: Evaluation note* Diagnosis Onset Date Resolution Status S/P cervical spinal fusion a cute Segmental and somatic dysfunction of cervical region acute Cervical facet syndrome acut e S/P cervical spinal fusion a [facility] Work Phone: Evaluation note* Diagnosis Onset Date Resolution Status S/P cervical spinal fusion a cute Segmental and somatic dysfunction of cervical region acute Cervical facet syndrome acut e S/P cervical spinal fusion a cute Left breast mass acute [facility] Work Phone: Evaluation note* Diagnosis Onset Date Resolution Status Rheumatoid arthritis chronic Herniated nucleus pulposus, C6-7 acute S/P cervical spinal fusion a [facility] Work Phone: Evaluation note* Diagnosis Onset Date Resolution Status Herniated nucleus pulposus, C6-7 acute S/P cervical spinal fusion a cute Herniated nucleus pulposus, C6-7 acute Herniated nucleus pulposus, C6-7 acute Left breast mass acute [facility] Work Phone: Evaluation note* Diagnosis Onset Date Resolution Status Herniated nucleus pulposus, C6-7 acute Neoplasm of cervical spine n oneactive [facility] Work Phone: Evaluation note* Diagnosis Onset Date Resolution Status Herniated nucleus pulposus, C6-7 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 Herniated nucleus pulposus, C6-7 acute Herniated nucleus pulposus, C6-7 acute S/P cervical spinal fusion a [facility] Work Phone: Evaluation note* Diagnosis Onset Date Resolution Status Migraine headache without aura acute Climacteric acute Family history of colon cancer in father acute Encounter for routine gynecological examination noneactive S/P cervical spinal fusion a [facility] Work Phone: Evaluation note* Diagnosis Onset Date Resolution Status Migraine headache without aura acute Climacteric acute Family history of colon cancer in father acute Encounter for routine gynecological examination noneactive S/P cervical spinal fusion a cute Climacteric acute [facility] Work Phone: Evaluation note* Diagnosis Onset Date Resolution Status Herniated nucleus pulposus, C6-7 resolved 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 Breezy Alegria MD Status:AD M [facility] Location: [place] [address] Subjective Subjective Patient seen and examined. She had no active complaints. She said her headache had improved. Pain is well controlled. Review of systems is otherwise negative. Objective Data Objective Data Vital Signs: Vital Signs Temp Pulse Resp BP Pulse Ox O2 Del Method O2 Flow Rate 97.9 F 95 18 121/67 H 100 Room Air 4 06/10/23 12:45 06/10/23 12:45 06/10/23 12:45 06/10/23 12:45 06/10/23 12:45 06/10/23 12:45 06/09/23 13:12 Oxygen Flow Rate (L/min) 4 Oxygen Delivery Method Room Air Weight: 171 lb 3.2 oz Body Mass Index (BMI) 30.3 Intake & Output: Intake and Output for Last 24 Hours 06/08/23 06/09/23 06/10/23 23:59 23:59 23:59 Intake Total 1039.92 / 1039.92 950 / 950 Output Total 120 / 120 1500 / 1500 Balance 919.92 / 919.92 -550 / -550 Lab / Micro Data 06/10/23 07:29 06/10/23 07:29 Labs: Laboratory Results - last 24 hr 06/10/23 07:29: WBC 11.6 H, RBC 3.55 L, Hgb 11.4 L, Hct 34.1 L, MCV 96.1, MCH 32.1 H, MCHC 33.4, RDW Std Deviation 48.7 H, RDW Coeff of Peggy 13.7, Plt Count 316, MPV 9.9, Sodium 138, Potassium 3.8, Chloride 108 H, Carbon Dioxide 24.0, Anion Gap 6, BUN 7, Creatinine 0.90, Estim Creat Clear Calc 63.92, Est GFR (MDRD) Af Amer 86, Est GFR (MDRD) Non-Af 71, BUN/Creatinine Ratio 7.7 L, Glucose 158 H,Calcium 8.5 Micro: Microbiology 05/29/23 09:03 Swab (Method) Nasal Screen MRSA/MSSA - Final Physical Exam Const alert, oriented x3 and no apparent distress General Appearance: cooperative and well developed HEENT normocephalic, head/scalp atraumatic, moist oral mucous membranes and oropharynxnormal Eyes PERRL and EOMs intact bilaterally Neck no lymphadenopathy and supple Lymph Lymphatic: no lymphadenopathy noted and no lymphedema noted Resp normal respiratory effort, normal air movement and clear to auscultation bilaterally Cardio regular rate, regular rhythm, S1 normal heart sound, S2 normal heart sound and no murmurs GI normal to inspection, nondistended, normoactive bowel sounds, soft to palpation,non-tender and non-distended Extremity normal capillary refill, no clubbing, cyanosis or edema and no calf tenderness Skin Skin Narrative: dressing over surgical site in anterior neck Neuro CN's II-XII intact bilaterally, no focal motor deficits, no sensory deficits noted and deep tendon reflexes 2+ bilaterally Motor Exam: strength 5/5 throughout and general weakness Psych thought process normal and cooperative Appearance: appropriate Assessment & Plan Assessment/Plan (1) Herniated nucleus pulposus, C6-7: (2) S/P cervical spinal fusion: PLAN: Plan #Right herniated disc s/p anterior cervical fusion at C6-7 * s/p anterior cervical fusion. * on PO tylenol, IV morphine and PO oxycodone for pain. * management as per spine surgery * #Post op headache: resolved. #HYperlipidemia: on rosuvstatin #Rheumatoid arthritis: etanercept weekly DVT prophylaxis; lovenox Charges/Coding Visit Charges Inpatient E&M: 63452 Subs Hosp L2 06/10/23 1309 <Electronically signed by Paula Cherry MD> Paula Cherry MD Cosigner Signature (if applicable): CC: ~ Signed [facility] Work Phone: Reason for referral (narrative)No reason for referral [facility] Work Phone: Summary Purpose Family History Relationship Condition Age at Onset Recorded Date/T sara father Malignant neoplasm of colon Unknown son Asthma Unknown Relationship Condition Age at Onset Recorded Date/T sara father Malignant neoplasm of colon Unknown son Asthma Unknown mother Hypertension Unknown Relationship Condition Age at Onset Recorded Date/T sara father Malignant neoplasm of colon 50 son Asthma Unknown mother Hypertension Unknown Advance Directives Advance Directive Response Recorded Date/ Time Living Will No December 20, 2018 8:28am Power of Supervisor Riveting No December 20 8:28am Advance Directive Response Recorded Date/ Time Living Will No December 17, 2021 1 2:50pm Power of Supervisor Riveting No December 17, 2021 12:50pm Advance Directive Response Recorded Date/ Time Living Will No December 17, 2021 1 1:50am Power of Supervisor Riveting No December 17, 2021 11:50am Advance Directive Response Recorded Date/ Time Living Will No October 21, 2022 12:46pm Power of Supervisor Riveting No October 21 12:46pm Advance Directive Response Recorded Date/ Time Living Will No October 21, 2022 11:46am Power of Supervisor Riveting No October 21 11:46am Advance Directive Response Recorded Date/ Time Name of Medical Power of Supervisor Riveting Pop Malcolm June 09, 2023 3:40pm Living Will Yes June 09, 2 023 3:40pm Power of Supervisor Riveting Yes June 09, 2023 3:40pm Advance Directive Response Recorded Date/ Time Living Will Yes August 17 10:53am Power of Supervisor Riveting Yes August 17, 2023 10:53am Advance Directive Response Recorded Date/ Time Living Will Yes August 17 10:53am Do you have a Healthcare Power of Supervisor Riveting? Yes August 17, 2023 10:53am Chief Complaint and Reason for Visit Chief Complaint prednisone therapy NECK PAIN Cervical spine CERVICALGIA/ RX HERE R91.8 ABNORMAL FINDINGS OF LUNG Reason for Visit Cervical (neck) paddy on somatic dysfunction Neck pain Chief Complaint CERVICALGIA/ RX HERE R91.8 ABNORMAL FINDINGS OF LUNG CERVICAL SPINE cervical spine ANTERIOR CERVICAL FUSION ANTERIOR CERVICAL FUSION ANTERIOR CERVICAL FUSION ANTERIOR CERVICAL FUSION ANTERIOR CERVICAL FUSION ANTERIOR CERVICAL FUSION Reason for Visit Foraminal stenosis o f cervical region Foraminal stenosis of cervical region Cervical (neck) region somatic dysfunction Foraminal stenosis of cervical region Chief Complaint CERVICALGIA/ RX HERE R91.8 ABNORMAL FINDINGS OF LUNG CERVICAL SPINE cervical spine cervical spine ANTERIOR CERVICAL FUSION ANTERIOR CERVICAL FUSION ANTERIOR CERVICAL FUSION ANTERIOR CERVICAL FUSION ANTERIOR CERVICAL FUSION ANTERIOR CERVICAL FUSION cervical spine cervical CERVICAL SPINE Reason for Visit Foraminal stenosis o f cervical region Foraminal stenosis of cervical region Cervical (neck) region somatic dysfunction Foraminal stenosis of cervical region S/P cervical spinal fusion S/P cervical spinal fusion S/P cervical spinal fusion Chief Complaint CERVICAL SPINE cervical spine cervical spine ANTERIOR CERVICAL FUSION ANTERIOR CERVICAL FUSION ANTERIOR CERVICAL FUSION ANTERIOR CERVICAL FUSION ANTERIOR CERVICAL FUSION ANTERIOR CERVICAL FUSION cervical spine cervical CERVICAL SPINE Cervical spine xray Reason for Visit Foraminal stenosis o f cervical region Foraminal stenosis of cervical region Cervical (neck) region somatic dysfunction Foraminal stenosis of cervical region S/P cervical spinal fusion S/P cervical spinal fusion S/P cervical spinal fusion S/P cervical spinal fusion Chief Complaint CERVICAL SPINE cervical spine cervical spine ANTERIOR CERVICAL FUSION ANTERIOR CERVICAL FUSION ANTERIOR CERVICAL FUSION ANTERIOR CERVICAL FUSION ANTERIOR CERVICAL FUSION ANTERIOR CERVICAL FUSION cervical spine cervical CERVICAL SPINE Cervical spine xray LABS AND XRAY Reason for Visit Foraminal stenosis o f cervical region Foraminal stenosis of cervical region Cervical (neck) region somatic dysfunction Foraminal stenosis of cervical region S/P cervical spinal fusion S/P cervical spinal fusion S/P cervical spinal fusion S/P cervical spinal fusion Chief Complaint LABS AND XRAY CERVICAL SPINE xray CERVICAL SPINE room 3 xray ENCOUNTER FOR SCREENIING OF CERVIX Reason for Visit S/P cervical spinal fusion Segmental and somatic dysfunction of cervical region Cervical facet syndrome S/P cervical spinal fusion Chief Complaint LABS AND XRAY CERVICAL SPINE xray CERVICAL SPINE room 3 xray ENCOUNTER FOR SCREENIING OF CERVIX SCREENING ABNORMAL MAMMO Birads 4 Left Breast Reason for Visit S/P cervical spinal fusion Segmental and somatic dysfunction of cervical region Cervical facet syndrome S/P cervical spinal fusion Left breast mass Chief Complaint Sleep apnea CERVICAL SPINE Other cervical disc displacement at C6-C7 level Reason for Visit Rheumatoid arthritis Herniated nucleus pulposus, C6-7 S/P cervical spinal fusion Chief Complaint CERVICAL SPINE Other cervical disc displacement at C6-C7 level cervical spine CERVICAL SPINE 6 MONTH FOLLOW UP LEFT BREAST MASS BREAST US FOLLOW UP Reason for Visit Herniated nucleus pu lposus, C6-7 S/P cervical spinal fusion Herniated nucleus pulposus, C6-7 Herniated nucleus pulposus, C6-7 Left breast mass Chief Complaint CERVICAL SPINE Other cervical disc displacement at C6-C7 level cervical spine CERVICAL SPINE 6 MONTH FOLLOW UP LEFT BREAST MASS BREAST US FOLLOW UP MIGRAINE Reason for Visit Herniated nucleus pu lposus, C6-7 S/P cervical spinal fusion Herniated nucleus pulposus, C6-7 Herniated nucleus pulposus, C6-7 Left breast mass Chief Complaint CERVICAL SPINE Other cervical disc displacement at C6-C7 level cervical spine CERVICAL SPINE 6 MONTH FOLLOW UP LEFT BREAST MASS BREAST US FOLLOW UP MIGRAINE E ORDER Rheumatoid arthritis with rheumatoid factor, unspe SOB Reason for Visit Herniated nucleus pu lposus, C6-7 S/P cervical spinal fusion Herniated nucleus pulposus, C6-7 Herniated nucleus pulposus, C6-7 Left breast mass Chief Complaint MIGRAINE E ORDER Rheumatoid arthritis with rheumatoid factor, unspe SOB Cervical tumor Rheumatoid arthritis with rheumatoid factor, unspe Rheumatoid arthritis with rheumatoid factor, unspe Reason for Visit Herniated nucleus pu lposus, C6-7 Neoplasm of cervical spine Chief Complaint MIGRAINE E ORDER Rheumatoid arthritis with rheumatoid factor, unspe SOB Cervical tumor Rheumatoid arthritis with rheumatoid factor, unspe Rheumatoid arthritis with rheumatoid factor, unspe SOLITARY PULMONARY NODULE Reason for Visit Herniated nucleus pu lposus, C6-7 Neoplasm of cervical spine Chief Complaint Rheumatoid arthritis with rheumatoid factor, unspe SOB Cervical tumor Rheumatoid arthritis with rheumatoid factor, unspe Rheumatoid arthritis with rheumatoid factor, unspe SOLITARY PULMONARY NODULE 8 M FU cervical spine PREOP Anterior Cervical Fusion C6-7 Anterior Cervical Fusion C6-7 Anterior Cervical Fusion C6-7 Anterior Cervical Fusion C6-7 Anterior Cervical Fusion C6-7 Anterior Cervical Fusion C6-7 Reason for Visit Herniated nucleus pu lposus, C6-7 Neoplasm of cervical spine Lung nodule Herniated nucleus pulposus, C6-7 Herniated nucleus pulposus, C6-7 S/P cervical spinal fusion Chief Complaint CERVICAL SPINE RM 3 CERVICOGENIC HEADACHE 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 CERVICAL SPINE room 3 Reason for Visit Migraine headache wi thout aura Climacteric Family history of colon cancer in father Encounter for routine gynecological examination S/P cervical spinal fusion Chief Complaint CERVICAL SPINE RM 3 CERVICOGENIC HEADACHE 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 CERVICAL SPINE room 3 menopause sx E ORDERS Reason for Visit Migraine headache wi thout aura Climacteric Family history of colon cancer in father Encounter for routine gynecological examination S/P cervical spinal fusion Climacteric Chief Complaint Cervical tumor Rheumatoid arthritis with rheumatoid factor, unspe Rheumatoid arthritis with rheumatoid factor, unspe SOLITARY PULMONARY NODULE 8 M FU cervical spine PREOP Anterior Cervical Fusion C6-7 Anterior Cervical Fusion C6-7 Anterior Cervical Fusion C6-7 Anterior Cervical Fusion C6-7 Anterior Cervical Fusion C6-7 Anterior Cervical Fusion C6-7 cervical spine room 4 SCREENING Reason for Visit Herniated nucleus pu lposus, C6-7 Neoplasm of cervical spine Lung nodule Herniated nucleus pulposus, C6-7 Herniated nucleus pulposus, C6-7 S/P cervical spinal fusion Chief Complaint Admit Date Medication follow up September 08, 2024 8:41am 1 Y FU December 14, 2024 7:52a m Reason for Visit Admit Date Climacteric September 08, 2024 8:41am Hormone replacement therapy August 8:41am Migraine headache without aura September 08, 2024 8:41am Fatigue December 14, 2024 7:52a m Migraine headache without aura December 14, 2024 7:52am Paresthesias December 14, 2024 7:52a m Additional Source Comments INFORMATION SOURCE (unrecogn ized section and content) DATE CREATED AUTHOR 03/30/2021 [facility] DATE CREATED AUTHOR AUTHOR'S ORGANIZ ATION 03/30/2021 [facility] DATE CREATED AUTHOR AUTHOR'S ORGANIZ ATION 08/15/2021 [facility] DATE CREATED AUTHOR AUTHOR'S ORGANIZ ATION 04/18/2022 [facility] DATE CREATED AUTHOR AUTHOR'S ORGANIZ ATION 05/06/2022 [facility] DATE CREATED AUTHOR AUTHOR'S ORGANIZ ATION 12/19/2024 [facility] Care Teams (unrecognized sec tion and content) Team Status: Active Member Role Status Dates Dr. Breezy Alegria MD Family Provider Active Dr. Breezy Alegria MD Primary Care Provider Active Team Status: Inactive Member Role Status Dates Dr. Godfrey Wiley MD Attending Provider Active Dr. Breezy Alegria MD Referring Provider Active Team Status: Inactive Member Role Status Dates Dr. Breezy Alegria MD Primary Care Provider, Referr ing Provider Active Dr. Gerardo Guthrie DO Attending Provider Active Team Status: Inactive Member Role Status Dates Dr. Breezy Alegria MD Primary Care Provider Active Dr. Gerardo Guthrie DO Attending Provider, Referring P frankchristopher Active Team Status: Inactive Member Role Status Dates Dr. Breezy Alegria MD Primary Care Provider, Referr ing Provider Active Dr. Wallace Whitehead MD Attending Provider Active Team Status: Inactive Member Role Status Dates Dr. Wallace Whitehead MD Attending Provider, Referr ing Provider Active Dr. Breezy Alegria MD Primary Care Provider Active Team Status: Inactive Member Role Status Dates Dr. Breezy Alegria MD Primary Care Pr ovider, Attending Provider, Referring Provider Active Team Status: Active Member Role Status Dates Dr. Breezy Alegria MD Primary Care Provider Active EMANUEL IVAN MD Attending Provider Active Team Status: Inactive Member Role Status Dates Dr. Breezy Alegria MD Primary Care Provider Active EMANUEL IVAN MD Attending Provider Active Team Status: Active Member Role Status Dates Dr. Breezy Alegria MD Primary Care Provider Active Dr. Ismael Frazier MD Attending Provider Active Team Status: Inactive Member Role Status Dates Dr. Breezy Alegria MD Primary Care Provider Active Dr. Godfrey Wiley MD Attending Provider, Referring Pr ovider Active Team Status: Inactive Member Role Status Dates Dr. Breezy Alegria MD Primary Care Provider, Attend ing Provider Active Team Status: Active Member Role Status Dates Dr. Breezy Alegria MD Primary Care Pr ovider, Attending Provider, Referring Provider Active Team Status: Active Member Role Status Dates Dr. Breezy Alegria MD Primary Care Provider Active Dr. Godfrey Wiley MD Referring Provider, Other Provid er Active Dr. Zaire Roche DO Attending Provider Active Team Status: Inactive Member Role Status Dates Dr. Breezy Alegria MD Primary Care Provider Active Traci Lange DOCTOR'S ASSISTANT, DOCTOR'S ASSISTANT-C Attending Provider, Referrin g Provider Active Team Status: Inactive Member Role Status Dates Dr. Breezy Alegria MD Primary Care Provider, Referr ing Provider Active Traci Lange DOCTOR'S ASSISTANT, DOCTOR'S ASSISTANT-C Attending Provider Active Team Status: Active Member Role Status Dates Dr. Breezy Alegria MD Primary Care Provider Active Dr. Gerardo Guthrie DO Attending Provide r, Referring Provider, Other Provider Active Team Status: Active Member Role Status Dates Dr. Breezy Alegria MD Primary Care Provider Active Dr. Gerardo Guthrie DO Admit Provider, R eferring Provider, Other Provider Active Dr. John Ennis DO Attending Provider, Other Provider Active Team Status: Active Member Role Status Dates Dr. Breeyz Alegria MD Primary Care Provider Active Dr. Ismael Frazier MD Attending Provider Active Dr. Gerardo Guthrie DO Referring Provider Active Team Status: Active Member Role Status Dates Dr. Breezy Alegria MD Primary Care Provider Active Dr. Gerardo Guthrie DO Admit Provider, A ttending Provider, Referring Provider, Other Provider Active Dr. Paula Cherry MD Other Provider Active Team Status: Active Member Role Status Dates Dr. Breezy Alegria MD Primary Care Provider Active Dr. Gerardo Guthrie DO Admit Provider, R eferring Provider, Other Provider Active Dr. Paula Cherry MD Attending Provider, Other Prov ider Active Team Status: Inactive Member Role Status Dates Dr. Breezy Alegria MD Primary Care Provider Active Dr. Gerardo Guthrie DO Admit Provider, A ttending Provider, Referring Provider Active Dr. Paula Cherry MD Other Provider Active Team Status: Inactive Member Role Status Dates Dr. Breezy Alegria MD Primary Care Provider, Referr ing Provider Active Dr. Trino Christian MD Attending Provider Active Team Status: Inactive Member Role Status Dates Dr. Breezy Alegria MD Primary Care Provider, Referr ing Provider Active Arlene Mcqueen DOCTOR'S ASSISTANT, DOCTOR'S ASSISTANT-C Attending Provider Active Team Status: Inactive Member Role Status Dates Dr. Breezy Alergia MD Primary Care Provider Active Dr. Ismael Frazier MD Attending Provider Active Team Status: Inactive Member Role Status Dates Dr. Breezy Alegria MD Primary Care Provider Active Arlene Mcqueen DOCTOR'S ASSISTANT, DOCTOR'S ASSISTANT-C Attending Provider, Referring Provider Active Team Status: Active Member Role Status Dates Dr. Breezy Alegria MD Primary Care Provider Active Dr. Gerardo Guthrie DO Admit Provider, Other Provider Active Dr. Paula Cherry MD Attending Provider, Other Prov ider Active Team Status: Inactive Member Role Status Dates Dr. Breezy Alegria MD Primary Care Provider Active Start: August 23, 2024 End: August 23, 2024 Dr. Breezy Alegria MD Attending Provider Active Start: August 23, 2024 End: August 23, 2024 Dr. Breezy Alegria MD Referring Provider Active Start: August 23, 2024 End: August 23, 2024 Team Status: Inactive Member Role Status Dates Dr. Breezy Alegria MD Primary Care Provider Active Start: August 24, 2024 End: August 24, 2024 Dr. Breezy Alegria MD Attending Provider Active Start: August 24, 2024 End: August 24, 2024 Dr. Breezy Alegria MD Referring Provider Active Start: August 24, 2024 End: August 24, 2024 Team Status: Inactive Member Role Status Dates Dr. Breezy Alegria MD Primary Care Provider Active Start: September 08, 2024 End: September 08, 2024 Dr. Breezy Alegria MD Referring Provider Active Start: September 08, 2024 End: September 08, 2024 Arlene Mcqueen NP, DOCTOR'S ASSISTANT-C Attending Provider Active Start: September 08, 2024 End: September 08, 2024 Team Status: Inactive Member Role Status Dates Dr. Breezy Alegria MD Primary Care Provider Active Start: December 14, 2024 End: December 14, 2024 Dr. Breezy Alegria MD Referring Provider Active Start: December 14, 2024 End: December 14, 2024 Dr. Trino Christian MD Attending Provider Active Start: December 14, 2024 End: December 14, 2024 FOR RECORDS PERTAINING TO PATIENTS WHO ARE OR HAVE BEEN ENROLLED IN A CHEMICAL DEPENDENCY/SUBSTANCEABUSE PROGRAM, SOME INFORMATION MAY BE OMITTED. This clinical summary was aggregated from multiple sources. Caution should be exercised in using it in the provision of clinical care. This summary normalizes information from multiple sources, and as a consequence, information in this document may materially change the coding, format and clinical context of patient data. In addition, data may be omitted in some cases. CLINICAL DECISIONS SHOULD BE BASED ON THE PRIMARY CLINICAL RECORDS. [facility] [employer] [facility]. provides no warranty or guarantee of the accuracy or completeness of information in this document.
--- NOTE | 2024-12-28 14:56 | NEURO ---
NCS and/or EMG Patient Report Ordering Doctor: artis morales DATE OF SERVICE: 12/28/24 Artis presents with complaints of numbness and tingling in both hands. She also has pain in the left shoulder radiating down the arm. Electrodiagnostic findings: Left median motor nerve demonstrates prolonged latency with normal amplitude and reduced conduction velocity. Right median motor nerve demonstrates prolonged latency with normal amplitude and reduced conduction velocity. Left ulnar motor response within normal limits. Right ulnar motor response within normal limits. Normal median ulnar F?waves. Median sensory latency at the wrist bilaterally. Needle EMG testing was performed in the upper limbs. 1+ fibrillations noted in the left lower cervical paraspinals, left first dorsal interosseous and left triceps. Motor unit action potentials normal amplitude and duration. Electrodiagnostic impression: This is an abnormal study in the upper limbs 1. Electrodiagnostic findings suggestive of bilateral median mononeuropathy. This is consistent with a mild bilateral carpal tunnel syndrome. 2. Electrodiagnostic findings suggestive of an acute left C8 radiculopathy. Recommend correlation with cervical spine imaging. Multi Select Codes Neurology Neurology Interp Codes: 26544-74 Musc test done w/n test comp (interp) (2) and 11651-51 Nrv cndj test 9-10 studies (interp)
== END | disposition home or self-care (01) ==
LOC: PSN 06:46
PROVIDERS: PCP Family Medicine; Referring Provider Psychiatry & Neurology Neurology; Visit Provider Psychiatry & Neurology Neurology
DX: R20.2 Paresthesia of skin (principal)
CPT/HCPCS: 95886; 95912

== ENCOUNTER → 2025-03-01 | Outpatient (CLI) | payer OTHER, SELFPAY ==
[2025-03-01 10:41] LABS: Hematocrit 37.5 % (37-47); Hemoglobin 12.6 g/dL (12.0-15.0); Immature Granulocytes Count 0.010 X10^3/uL (0.0-0.0); Mean Corp Hgb Conc 33.6 g/dL (32-36); Mean Corpuscular Volume 93.3 fL (81-99); Mean Platelet Vol. 10.2 fl (6.2-12.0); NRBC Flagged by Analyzer 0 % (0-5); Platelet Count 279 K/mm3 (150-450); RBC Distribution Width CV 13.0 % (11.6-14.6); RBC Distribution Width SD 44.4 fl (35.1-43.9); Red Blood Count 4.02 M/mm3 (4.2-5.4); White Blood Count 4.5 K/mm3 (4.4-11.0)
[2025-03-01 11:52] LABS: AST(SGOT) 21 U/L (<=31); Alanine Aminotransfer ALT/SGPT 23 U/L (<=34); Albumin, Serum 4.3 g/dL (3.5-5.0); Alkaline Phosphatase 71 U/L (35-104); Anion Gap 11 (5-15); BUN 11 mg/dL (4-19); BUN/Creat Ratio 18.9 RATIO (10-20); Calcium,Total 9.6 mg/dL (7.6-11.0); Carbon Dioxide 25.2 mmol/L (21.0-32.0); Chloride 102 mmol/L (98-108); Cholesterol 183 mg/dL (<=200); Ferritin 144 ng/mL (22-378); Globulin 2.7 g/dL (2.2-4.2); Glucose 93 mg/dL (70-99); Low Density Lipoprotein Calc. 60 mg/dL; Potassium 4.3 mmol/L (3.3-5.1); Triglycerides 320 mg/dL; Very Low Density Lipoprotein 64 mg/dL (5-40); Vitamin B12 1985 pg/mL (180-914); Vitamin D,25 Hydroxy 51.3 ng/mL (30-100); cholesterol:hdl ratio screen 3.11
[2025-03-01 12:22] LABS: FOLATES,SERUM (FOLIC ACID) 37.50 ng/mL (4.60-34.80)
[2025-03-01 12:24] LABS: Iron 99 ug/dL (50-170); Iron Binding Capacity,Total 294 ug/dL (250-450); Iron Binding Capacity,Unsat 195 ug/dL (228-428)
== END | disposition home or self-care (01) ==
LOC: MFPLAB 09:31
PROVIDERS: PCP Family Medicine; Referring Provider Family Medicine; Visit Provider Family Medicine
DX: E78.5 Hyperlipidemia, unspecified (principal); E55.9 Vitamin D deficiency, unspecified; D64.9 Anemia, unspecified
CPT/HCPCS: 36415; 80053; 80061; 82306; 82607; 82728; 82746; 83540; 83550; 84443; 85025

== ENCOUNTER → 2025-06-30 | Outpatient (CLI) | payer OTHER, SELFPAY ==
--- OUTSIDE RECORDS SUMMARY | 2025-06-30 07:10 | XMS RPT_ITS | CCD ---
Author Organization [facility] Care Team Providers Care Oiler Helper Name Role Phone Dr. Breezy Alegria Primary Care Provider Dr. [...] Referring Provider Dr. Godfrey Wiley Attending Provider 1([facility])[phone] Breezy Alegria Referring Provider Dr. Breezy Alegria Primary Care Provider 1([facility] )[phone] Dr. Gerardo Guthrie Attending Provider 1([facility])[phone] Dr. Breezy Alegria Referring Provider 1([facility])[phone] Dr. Wallace Whitehead Attending Provider Dr. Ismael Frazier Attending Provider 1([facility])[phone] Breezy Alegria Primary Care Provider 1([facility] )[phone] Dr. Breezy Alegria Referring Provider 1([facility])[phone] Dr. Gerardo Guthrie Attending Provider 1([facility])[phone] Dr. Godfrey Wiley Referring Provider 1([facility])[phone] Godfrey Wiley Other Provider Dr. Zaire Roche Attending Provider 1([facility])[phone] Breezy Alegria Primary Care Provider 1([facility] )[phone] Dr. Ismael Frazier Attending Provider 1([facility])[phone] Breezy Alegria Referring Provider 1([facility])[phone] Dr. Gerardo Guthrie Attending Provider 1([facility])[phone] Dr. Godfrey Wiley Referring Provider 1([facility])[phone] Godfrey Wiley Other Provider Dr. Zaire Roche Attending Provider 1([facility])[phone] Anisa PLASTERING SUPERVISOR, PLASTERING SUPERVISOR-C Traci Attending Provider Dr. Gerardo Guthrie Referring Provider Dr. Gerardo Guthrie Other Provider Dr. Gerardo Guthrie Admit Provider Dr. John Ennis Attending Provider Dr. John Ennis Other Provider 1([facility])[phone] Dr. Paula Cheryr Other Provider Dr. Paula Cherry Attending Provider Dr. Breezy Alegria Primary Care Provider Dr. Breezy Alegria Referring Provider Dr. Gerardo Guthrie Attending Provider Dr. Ismael Frazier Attending Provider Dr. Trino Christian Attending Provider Charisse PLASTERING SUPERVISOR, PLASTERING SUPERVISOR-C Arlene Attending Provider Dr. Breezy Alegria Primary Care Provider Dr. Ismael Frazier Attending Provider Raji ALICEA, Dr. Breezy Gusman Primary Care Provider Raji ALICEA, Dr. Breezy Gusman Attending Provider [phone] Raji ALICEA, Dr. Breezy Gusman Referring Provider [phone] Mesa PLASTERING SUPERVISOR-C, Arlene Attending Provider Gino ALICEA, Dr. Jameson Attending Provider Raji ALICEA, Dr. Breezy Gusman Primary Care Provider Dr. Breezy Alegria MD Referring Provider Dr. Trino Christian MD Referring Provider Gino ALICEA, Dr. Jameson Other Provider Michaela ALICEA, Dr. Jeffers Attending Provider Dr. Breezy Alegria MD Primary Care Provider [phone] Dr. Trino Christian MD Referring Provider [phone] Dr. Breezy Alegria MD Attending Provider Dr. Breezy Alegria MD Referring Provider Raji ALICEA, Dr. Breezy Gusman Primary Care Physician Dr. Trino Christian MD Attending Physician Gino ALICEA, Dr. Jameson Nurse Practitioner Michaela ALICEA, Dr. Jeffers Attending Physician [phone] Raji ALICEA, Dr. Breezy Gusman Attending Physician Breezy Alegria E Primary Care Unavailable Schinner, Breezy E Referring Unavailable SchinnerBreezy E Attending Unavailable Trino Christian Referring Unavailable Trino Christian Attending Unavailable Schinluis, Breezy E Primary Care Unavailable Schinner, Breezy E Referring Unavailable SchinnerBreezy E Attending Unavailable Schinner, Breezy E Primary Care Unavailable Schinner, Breezy E Referring Unavailable Robotruth ann, Winsome Attending Unavailable Schinner, Breezy E Primary Care Unavailable Schinner, Breezy E Referring Unavailable Schinner, Breezy E Primary Care Unavailable Schinner, Breezy E Attending Unavailable Schinner, Breezy E Referring Unavailable Schinner, Breezy E Primary Care Unavailable Charisse PLASTERING SUPERVISORArlene Attending Unavailable Schinluis, Breezy E Primary Care Unavailable Schector, Breezy E Referring Unavailable Trino Christian Attending Unavailable Trino Christian Referring Unavailable Trino Christian Attending Unavailable Schinner, Breezy E Primary Care Unavailable Schinner, Breezy E Referring Unavailable Winsome Rangel Attending Unavailable Robotham, Winsome Consulting Unavailable Schinner, Breezy E Primary Care Unavailable Brenda Simental Attending Unavailable Schinluis, Breezy E Primary Care Unavailable Baddoaldo, Trino Referring Unavailable Gino, Trino Consulting Unavailable Aury Jennings Attending Unavailable Schinner, Breezy E Primary Care Unavailable Schinner, Breezy E Primary Care Unavailable Breezy Alegria E Attending Unavailable Raji, Breezy E Primary Care Unavailable Charisse PLASTERING SUPERVISORArlene Referring Unavailable Charisse PLASTERING SUPERVISORArlene Attending Unavailable Medications Current Medications Medication Drug Class(es) Dates Sig (Normalized) Sig (Original) ascorbic acid 500 mg oral tablet (20 sources) Vitamin C Start: 12-16-2023 take 1 g by mouth once daily Start: 12-05-2021 End: 12-16-2023 take 2 tablets by mouth every other day Ascorbic Acid (Vitamin C) (Vitamin C) 500 mg Tablet Discontinued 1000 mg PO EVERY OTHER DAY December 05, 2021 12:00am December 16, 2023 8:33am SUPPLEMENT Start: 12-05-2021 take 2 tablets by mo [facility] once daily Ascorbic Acid (Vitamin C) (Vitamin C) 500 mg Tablet Active 1000 MG PO DAILY December 04, 2021 11:00pm cholecalciferol 0.025 mg ora l tablet (20 sources) Vitamin D Start: 12-16-2023 take 1 tablet by jb once daily Start: 12-20-2018 End: 12-16-2023 take 1 tablet by mouth every other day Cholecalciferol (Vitamin D3) 1,000 UNIT tablet Discontinued 1000 U PO EVERY OTHER DAY December 20, 2018 12:00am December 16, 2023 8:33am SUPPLEMENT Start: 12-20-2018 take 1000 [IU] by mo [facility] once daily Cholecalciferol (Vitamin D3) Active 1000 UNIT PO DAILY December 19, 2018 11:00pm diphenhydrAMINE hydrochloride 25 mg oral capsule (20 sources) Histamine-1 Receptor Antagonist Start: 12-05-2021 take 1 capsule by mouth at bedtime as needed Start: 11-29-2018 End: 11-27-2021 Diphenhydramine Hcl (Nightti me Sleep Aid (Diphen)) 25 mg capsule Discontinued 50 mg PO AT BEDTIME as needed for Sleep November 29, 2018 12:00am November 27, 2021 7:59am 1 ml etanercept 50 mg/ml prefilled syringe (15 sources) Tumor Necrosis Factor Abel Start: 11-14-2022 ferrous sulfate 325 mg oral tablet (2 sources) Start: 11-29-2018 take 1 tablet by mouth twice daily Ferrous Sulfate (Feosol) 325 mg (65 mg iron) tablet Active 325 MG PO TWICE A DAY November 29, 2018 9:32am leflunomide 20 mg oral tablet (4 sources) Antirheumatic Agent Start: 05-27-2024 take 1 tablet by mouth once daily leucovorin 5 mg oral tablet (2 sources) Folate Analog Start: 11-29-2018 take 5 mg by mouth every week Leucovorin Calcium Active 5 MG PO EVERY WEEK November 29, 2018 9:30am levothyroxine sodium 0.088 mg oral tablet (8 sources) l-Thyroxine Start: 06-08-2024 take 1 tablet by mouth once daily Start: 05-27-2024 End: 06-08-2024 take 1 capsule by mouth once daily Levothyroxine 75 mcg capsule Discontinued 75 ug PO daily May 27, 2024 1:00am June 08, 2024 10:16am meloxicam 15 mg oral tablet (5 sources) Nonsteroidal Anti-inflammatory Drug Start: 05-27-2024 End: 03-29-2025 take 1 tablet by mouth once daily as needed for pain Meloxicam 15 mg tablet Active 15 mg PO daily as needed for pain 30 March 29, 2025 8:17am Complies with drug therapy progesterone 100 mg oral capsule (8 sources) Progesterone Start: 08-08-2024 End: 09-08-2024 take 1 capsule by mouth at bedtime rosuvastatin calcium 10 mg oral tablet (20 sources) HMG-CoA Reductase Inhibitor Start: 12-05-2021 take 1 tablet by mouth at bedtime SUMAtriptan 50 mg oral tablet (20 sources) Serotonin-1b and Serotonin-1d Receptor Agonist Start: 01-07-2024 End: 03-29-2025 take 1 tablet by mouth every two hours as needed for headache, then take 2 tablets by mouth once daily as needed for headache Sumatriptan Succinate 50 mg tablet Active 50 mg PO .COMPLEX 9 March 29, 2025 8:19am Take 1 tablet orally every two hours as needed for headache up to two tablets per day Complies with drug therapy Start: 08-17-2023 End: 12-16-2023 take 1 tablet by mouth every two hours as needed for headache, then take 2 tablets by mouth once daily as needed for headache Sumatriptan Succinate 50 mg tablet Discontinued 50 mg PO .COMPLEX 9 August 17, 2023 10:59am December 16, 2023 8:33am Take 1 tablet orally every two hours as needed for headache up to two tablets per day ubidecarenone 100 mg oral ca psule (20 sources) Start: 12-05-2021 vitamin a 2.4 mg oral capsul e (20 sources) Vitamin A Start: 05-27-2024 Start: 12-05-2021 take 2400 ug by mouth [...] 05, 2021 12:00am November 14, 2022 11:10am RA acetaminophen 325 mg / oxyCODONE hydrochloride 5 mg oral tablet (20 sources) Opioid Agonist Start: 06-10-2023 End: 06-17-2023 Oxycodone-Acetamin ophen 5-325 mg tablet Discontinued 1 {tbl} PO EVERY 6 HOURS as needed for pain 28 7 0 June 10, 2023 June 16, 2023 1:00am June 17, 2023 1:05am Herniated nucleus pulposus, C6-7 Status post cervical spinal arthrodesis Other cervical disc displacement at C6-C7 level Arthrodesis status Start: 06-10-2023 End: 06-17-2023 take 1 tablet by mouth every six hours Oxycodone-Acetaminophen Discontinued 1 TABLET PO EVERY 6 HOURS 28 7 June 10, 2023 June 17, 2023 1:05am Start: 01-10-2022 End: 03-10-2022 Oxycodone-Acetaminophen 5-32 5 mg tablet Discontinued 1 {tbl} PO as needed for pain 0 January 10, 2022 12:00am March 10, 2022 8:07am Start: 01-10-2022 End: 03-10-2022 Oxycodone-Acetaminophen Disc ontinued 1 TABLET PO January 10, 2022 12:00am March 10, 2022 8:07am docusate sodium 100 mg oral capsule (20 sources) Start: 12-20-2018 End: 11-27-2021 take 1 capsule by mouth once daily Docusate Sodium 100 MG capsule Discontinued 100 mg PO DAILY December 20, 2018 12:00am November 27, 2021 7:59am 84 hr estradiol 0.79723 mg/hr transdermal system (12 sources) Estrogen Start: 08-08-2024 End: 09-08-2024 apply 1 dose transdermal route two times weekly, then apply 1 dose transdermal route every hour Estradiol (Vivelle-Dot) 0.05 mg/24 hr patch semiweekly Discontinued 1 NMA TD TWICE A WEEK 8 August 08, 2024 1:03pm September 08, 2024 9:57am apply 1 patch for 3 days alternating with 1 patch for 4 days each week gabapentin 300 mg oral capsule (17 sources) Anti-epileptic Agent Start: 06-20-2022 End: 08-14-2022 take 1 capsule by mouth twice daily Gabapentin 300 mg capsule Discontinued 300 mg PO TWICE A DAY June 20, 2022 1:00am August 14, 2022 11:39am hydroxychloroquine sulfate 200 mg oral tablet (20 sources) Antimalarial, Antirheumatic Agent Start: 03-10-2022 End: [...] 05, 2021 12:00am May 20, 2023 11:22am SUPPLEMENT methotrexate 2.5 mg oral tablet (17 sources) Folate Analog Metabolic Inhibitor Start: 11-14-2022 [...] tablets,dose pack Discontinued 4 mg PO DAILY 6 6 0 January 10, 2022 12:00am January 15, 2022 12:00am January 16, 2022 12:03am naproxen sodium 220 mg oral capsule (20 sources) Nonsteroidal Anti-inflammatory Drug Start: 11-29-2018 End: 05-27-2024 take 1 capsule by mouth twice daily as needed for pain Naproxen Sodium (Aleve) 220 mg capsule Discontinued 220 mg PO TWICE A DAY as needed for Pain November 29, 2018 12:00am May 27, 2024 10:18am ondansetron 4 mg oral tablet (16 sources) Serotonin-3 Receptor Antagonist Start: 08-17-2023 End: 12-14-2024 take 1 tablet by mouth three times daily as needed for nausea and vomiting Ondansetron Hcl 4 mg tablet Discontinued 4 mg PO THREE TIMES A DAY as needed for nausea and vomiting 90 August 17, 2023 11:00am December 14, 2024 8:22am topiramate 50 mg oral tablet (12 sources) Start: 08-17-2023 End: 12-16-2023 take 0.5 [...] source) Hyperlipidemia, unspecified; Translations: [Hyperlipidemia, unspecified] Onset: 03-10-2025 Chronic Esophageal disorders (20 sources) Gastroesophageal reflux disease; Translations: [Gastro-esophageal reflux disease without esophagitis] 11-29-2018 Chronic Headache; including migraine (16 sources) Migraine without aura; Translations: [Migraine without aura, not intractable, without status migrainosus] Onset: 01-18-2025 08-17-2023 Chronic Malaise and fatigue (10 sources) Fatigue; Translations: [Other fatigue] Onset: 01-18-2025 12-14-2024 Episodic Menopausal disorders (11 sources) Menopausal syndrome; Translations: [Menopausal and female climacteric states] 09-02-2023 Chronic Menopausal disorders (6 sources) Drug therapy finding; Translations: [Hormone replacement [...] Onset: 05-01-2022 Episodic Other lower respiratory disease (10 sources) Nodule of lung; Translations: [Solitary pulmonary nodule] 02-19-2023 Episodic Other nervous system disorders (1 source) Lesion of plantar nerve, left lower limb; Translations: [Lesion of left plantar nerve] Onset: 05-01-2022 Chronic Other nervous system disorders (1 source) Other acute postprocedural pain; Translations: [Other acute postoperative pain] Onset: 05-01-2022 Episodic Other nervous system disorders (9 sources) Paresthesia; Translations: [Paresthesia of skin] 12-14-2024 Episodic Other nervous system disorders (2 sources) Paresthesia of skin; Translations: [Paresthesia of skin] Onset: 01-31-2025 Episodic Residual codes; unclassified (20 sources) Family [...] conditions (not mental disorders or infectious disease) (6 sources) Patient encounter status; Translations: [Encounter for screening for malignant neoplasm of colon] Onset: 07-14-2024 05-27-2024 Episodic Residual codes; unclassified (3 sources) Family history of malignant neoplasm of digestive organs; Translations: [Family history of malignant neoplasm of gastrointestinal tract] Onset: 07-14-2024 09-02-2023 Episodic Unclassified (20 sources) h/o finger surgery 02-09-2022 Comment on above: ORIF right middle fi nger Unclassified (20 sources) s/p tonsillectomy 02-09-2022 Results Test Name Value Interpretation Reference Range Facility Neurology Visit Reporton Neurology Visit Report [facility] [address] [place] [address], [address] [place] [address] OFFICE VISIT Date of Service: 03/29/25 MR#: [id number] Acct: [id number] Name: TIERRA MALCOLM Rep #: [id number] 05 : 1975 Provider: Dr. Trino jolley MD Age/Sex: 49/F Location: [facility] [place] Status: Signed [facility] Chief Complaint: Details: Interim History: Tierra [...] other triggers for her headaches. Acetaminophen and [id number] ibuprofen have been of benefit for milder headaches. Sumatriptan 50 mg is of benefit for her headaches. Topiramate was not well-tolerated (caused paresthesias in the feet). She tried 1 dose of Nurtec ODT and this was not of benefit. Her headaches have decreased in frequency and over recent months she has been experiencing about 2 days of headache per month. She has a history of of neck pain and upper extremity radicular pain and has undergone a C5-6 anterior cervical discectomy and fusion in December 2021 and C6-C7 anterior cervical discectomy and fusion in May 2023 and had resolution of her radicular pain and her neck pain diminished however however since earlier in 2024 she has been experiencing intermittent left upper extremity radicular pain extending to the forearm. She also had intermittent tingling in the hands. She wore wrist splints for a period of time and her hand symptoms have resolved. EMG/nerve conduction studies of the upper extremities performed in December 2024 revealed a mild bilateral carpal tunnel syndrome and a left C8 acute radiculopathy. She has joint pains in various locations for which she takes Enbrel. Meloxicam was of some benefit; she is not taking this medication presently. She has had fatigue. Her B12 level is near the low end of the normal range. A B12 1000 mcg IM injection was not of significant benefit for her fatigue. Physical Exam: Neuro: The patient is awake and alert and responds appropriately; speech is fluent; motor strength is 5/5 in the abductor pollicis brevis bilaterally and first dorsal interosseous bilaterally; there are no deficits to soft touch in the hands Heart: Regular rhythm and rate Supplemental Info [...] Normal sella turcica, pituitary gland, infundibular stalk, opt (more content not included)... Normal [facility] Absolute lymphocyte countOrd ered By: Breezy Alegria on 03-01-2025 Lymphocytes Auto (Unsp spec) [#/Vol] 1.47 10*3/uL 0.83-4.51 [facility] Absolute neutrophil countOrd ered By: Breezy Alegria on 03-01-2025 Neutrophils (Bld) [#/Vol] 2.4 10*3/uL 2.0-7.7 [facility] Anion gap in Serum or Plasma Ordered By: Breezy Alegria on 03-01-2025 Anion gap [Moles/Vol] 11 mmol/L 5-15 [facility] Automated lymphocyte count a s percentage of total leukocytesOrdered By: Breezy Alegria on 03-01-2025 Lymphocytes/100 WBC Auto (Unsp spec) 32.7 % - [facility] BUN/creatinine ratioOrdered By: Breezy Alegria on 03-01-2025 Urea nitrogen/Creatinine [Mass ratio] 18.9 mg/mg - [facility] Basophil percentageOrdered B y: Breezy Alegria on 03-01-2025 Basophils/100 WBC (Bld) 0.9 % 0-1 [facility] Bilirubin, totalOrdered By: Breezy Alegria on 03-01-2025 Bilirubin [Mass/Vol] 0.34 mg/dL 0.00-1.30 [facility] CBC W/Diff, Automatedon 02-11 Absolute Lymph 1.47 X10 3/uL Normal 0.83-4.51 [facility] Comment on above: Performed By: #### L 506.1001, L500.4100, L503.6030, L506.0200, L501.9520, L500.4050, L503.6550, L100.0100, L503.0106 #### [facility] [address] [place], [address] Absolute Neut 2.4 X10 3/uL Normal 2.0-7.7 [facility] Comment on above: Performed By: #### L 506.1001, L500.4100, L503.6030, L506.0200, L501.9520, L500.4050, L503.6550, L100.0100, L503.0106 #### [facility] [address] [place], [address] Basophils/100 WBC (Bld) 0.9 % Normal 0-1 [facility] Comment on above: Performed By: #### L 506.1001, L500.4100, L503.6030, L506.0200, L501.9520, L500.4050, L503.6550, L100.0100, L503.0106 #### [facility] [address] [place], [address] Eosinophils/100 WBC (Bld) 2.9 % Normal 0-5 [facility] Comment on above: Performed By: #### L 506.1001, L500.4100, L503.6030, L506.0200, L501.9520, L500.4050, L503.6550, L100.0100, L503.0106 #### [facility] [address] [place], [address] Erythrocyte distribution width (RBC) [Ratio] 13.0 % Normal 11.6-14.6 [facility] Comment on above: Performed By: #### L 506.1001, L500.4100, L503.6030, L506.0200, L501.9520, L500.4050, L503.6550, L100.0100, L503.0106 #### [facility] [address] [place], [address] Hematocrit (Bld) [Volume fraction] 37.5 % Normal 37-47 [facility] Comment on above: Performed By: #### L 506.1001, L500.4100, L503.6030, L506.0200, L501.9520, L500.4050, L503.6550, L100.0100, L503.0106 #### [facility] [address] [place], [address] Hemoglobin (Bld) [Mass/Vol] 12.6 g/dL Normal 12.0-15.0 [facility] Comment on above: Performed By: #### L 506.1001, L500.4100, L503.6030, L506.0200, L501.9520, L500.4050, L503.6550, L100.0100, L503.0106 #### [facility] [address] [place], [address] IG% 0.200 Normal 0.0-0.9 [facility] Comment on above: Result Comment: IG% - Immature Granulocytes (promyelocytes, myelocytes and metamyelocytes) > 1% indicates that a LEFT SHIFT is Present. Performed By: #### L 506.1001, L500.4100, L503.6030, L506.0200, L501.9520, L500.4050, L503.6550, L100.0100, L503.0106 #### [facility] [address] [place], [address] Lymphocytes/100 WBC (Bld) 32.7 % Normal 19-41 [facility] Comment on above: Performed By: #### L 506.1001, L500.4100, L503.6030, L506.0200, L501.9520, L500.4050, L503.6550, L100.0100, L503.0106 #### [facility] [address] [place], [address] MCH (RBC) [Entitic mass] 31.3 pg Normal 27.0-32.0 [facility] Comment on above: Performed By: #### L 506.1001, L500.4100, L503.6030, L506.0200, L501.9520, L500.4050, L503.6550, L100.0100, L503.0106 #### [facility] [address] [place], [address] MCHC (RBC) [Mass/Vol] 33.6 g/dL Normal 32-36 [facility] Comment on above: Performed By: #### L 506.1001, L500.4100, L503.6030, L506.0200, L501.9520, L500.4050, L503.6550, L100.0100, L503.0106 #### [facility] [address] [place], [address] MCV (RBC) [Entitic vol] 93.3 fL Normal 81-99 [facility] Comment on above: Performed By: #### L 506.1001, L500.4100, L503.6030, L506.0200, L501.9520, L500.4050, L503.6550, L100.0100, L503.0106 #### [facility] [address] [place], [address] Monocytes/100 WBC (Bld) 9.8 % Normal 0-10 [facility] Comment on above: Performed By: #### L 506.1001, L500.4100, L503.6030, L506.0200, L501.9520, L500.4050, L503.6550, L100.0100, L503.0106 #### [facility] [address] [place], [address] Neutrophils/100 WBC (Bld) 53.5 % Normal 47-70 [facility] Comment on above: Performed By: #### L 506.1001, L500.4100, L503.6030, L506.0200, L501.9520, L500.4050, L503.6550, L100.0100, L503.0106 #### [facility] [address] [place], [place], [id number] (627) Nucleated RBC (Bld) [#/Vol] 0 10*3/uL Normal 0-5 [facility] Comment on above: Performed By: #### L 506.1001, L500.4100, L503.6030, L506.0200, L501.9520, L500.4050, L503.6550, L100.0100, L503.0106 #### [facility] [address] [place], [address] Platelet mean volume (Bld) [Entitic vol] 10.2 fL Normal 6.2-12.0 [facility] Comment on above: Performed By: #### L 506.1001, L500.4100, L503.6030, L506.0200, L501.9520, L500.4050, L503.6550, L100.0100, L503.0106 #### [facility] [address] [place], [address] Platelets (Bld) [#/Vol] 279 10*3/uL Normal 150-450 [facility] Comment on above: Performed By: #### L 506.1001, L500.4100, L503.6030, L506.0200, L501.9520, L500.4050, L503.6550, L100.0100, L503.0106 #### [facility] [address] [place], [address] RBC (Bld) [#/Vol] 4.02 10*6/uL Low 4.2-5.4 [facility] Comment on above: Performed By: #### L 506.1001, L500.4100, L503.6030, L506.0200, L501.9520, L500.4050, L503.6550, L100.0100, L503.0106 #### [facility] [address] [place], [address] RDW SD 44.4 fl High 35.1-43.9 [facility] Comment on above: Performed By: #### L 506.1001, L500.4100, L503.6030, L506.0200, L501.9520, L500.4050, L503.6550, L100.0100, L503.0106 #### [facility] [address] [place], [address] WBC (Bld) [#/Vol] 4.5 10*3/uL Normal 4.4-11.0 [facility] Comment on above: Performed By: #### L 506.1001, L500.4100, L503.6030, L506.0200, L501.9520, L500.4050, L503.6550, L100.0100, L503.0106 #### [facility] [address] [place], [place], [id number] Calculated very low density lipoprotein (VLDL) cholesterol measurementOrdered By: Breezy Alegria on 03-01-2025 Calculated very low density lipoprotein (VLDL) cholesterol measurement 64 mg/dL High 5-40 [facility] Carbon dioxide, total [Moles /volume] in Central venous bloodOrdered By: Breezy Alegria on 03-01-2025 CO2 [Moles/Vol] 25.2 mmol/L 21.0-32.0 [facility] [facility] assayOrdered By: Olya Alegria on 03-01-2025 Chloride [Moles/Vol] 102 mmol/L 98-108 [facility] Comprehensive Metabolic Prof ilon 03-01-2025 Albumin [Mass/Vol] 4.3 g/dL Normal 3.5-5.0 [facility] Comment on above: Performed By: #### L 506.1001, L500.4100, L503.6030, L506.0200, L501.9520, L500.4050, L503.6550, L100.0100, L503.0106 #### [facility] [address] [place], [place], [id number] Albumin/Globulin [Mass ratio] 1.6 {ratio} Normal 0.9-2.4 [facility] Comment on above: Performed By: #### L 506.1001, L500.4100, L503.6030, L506.0200, L501.9520, L500.4050, L503.6550, L100.0100, L503.0106 #### [facility] [address] [place], [address] ALK PHOS 71 U/L Normal 35-104 [facility] Comment on above: Performed By: #### L 506.1001, L500.4100, L503.6030, L506.0200, L501.9520, L500.4050, L503.6550, L100.0100, L503.0106 #### [facility] [address] [place], [place], [id number] ALT [Catalytic activity/Vol] 23 U/L Normal <=34 [facility] Comment on above: Performed By: #### L 506.1001, L500.4100, L503.6030, L506.0200, L501.9520, L500.4050, L503.6550, L100.0100, L503.0106 #### [facility] [address] [place], [address] AST [Catalytic activity/Vol] 21 U/L Normal <=31 [facility] Comment on above: Performed By: #### L 506.1001, L500.4100, L503.6030, L506.0200, L501.9520, L500.4050, L503.6550, L100.0100, L503.0106 #### [facility] [address] [place], [address] Bilirubin [Mass/Vol] 0.34 mg/dL Normal 0.00-1.30 [facility] Comment on above: Performed By: #### L 506.1001, L500.4100, L503.6030, L506.0200, L501.9520, L500.4050, L503.6550, L100.0100, L503.0106 #### [facility] [address] [place], [address] BUN/CRE 18.9 RATIO Normal 10-20 [facility] Comment on above: Performed By: #### L 506.1001, L500.4100, L503.6030, L506.0200, L501.9520, L500.4050, L503.6550, L100.0100, L503.0106 #### [facility] [address] [place], [address] Calcium [Mass/Vol] 9.6 mg/dL Normal 7.6-11.0 [facility] Comment on above: Performed By: #### L 506.1001, L500.4100, L503.6030, L506.0200, L501.9520, L500.4050, L503.6550, L100.0100, L503.0106 #### [facility] [address] [place], [address] Chloride [Moles/Vol] 102 mmol/L Normal 98-108 [facility] Comment on above: Performed By: #### L 506.1001, L500.4100, L503.6030, L506.0200, L501.9520, L500.4050, L503.6550, L100.0100, L503.0106 #### [facility] [address] [place], [address] CO2 [Moles/Vol] 25.2 mmol/L Normal 21.0-32.0 [facility] Comment on above: Performed By: #### L 506.1001, L500.4100, L503.6030, L506.0200, L501.9520, L500.4050, L503.6550, L100.0100, L503.0106 #### [facility] [address] [place], [address] Creatinine [Mass/Vol] 0.59 mg/dL Low 0.70-1.20 [facility] Comment on above: Performed By: #### L 506.1001, L500.4100, L503.6030, L506.0200, L501.9520, L500.4050, L503.6550, L100.0100, L503.0106 #### [facility] [address] [place], [address] GAP 11 Normal 5-15 [facility] Comment on above: Performed By: #### L 506.1001, L500.4100, L503.6030, L506.0200, L501.9520, L500.4050, L503.6550, L100.0100, L503.0106 #### [facility] [address] [place], [address] GFR/1.73 sq M.predicted among non-blacks MDRD (S/P/Bld) [Vol rate/Area] 111 mL/min/{1.73_m2} Normal >60 [facility] Comment on above: Result Comment: mL/m in/1.73m2 CKD-EPI Creatinine Equation (2020) Performed By: #### L 506.1001, L500.4100, L503.6030, L506.0200, L501.9520, L500.4050, L503.6550, L100.0100, L503.0106 #### [facility] [address] [place], [address] Globulin (S) [Mass/Vol] 2.7 g/dL Normal 2.2-4.2 [facility] Comment on above: Performed By: #### L 506.1001, L500.4100, L503.6030, L506.0200, L501.9520, L500.4050, L503.6550, L100.0100, L503.0106 #### [facility] [address] [place], [address] Glucose [Mass/Vol] 93 mg/dL Normal 70-99 [facility] Comment on above: Performed By: #### L 506.1001, L500.4100, L503.6030, L506.0200, L501.9520, L500.4050, L503.6550, L100.0100, L503.0106 #### [facility] [address] [place], [address] Potassium [Moles/Vol] 4.3 mmol/L Normal 3.3-5.1 [facility] Comment on above: Performed By: #### L 506.1001, L500.4100, L503.6030, L506.0200, L501.9520, L500.4050, L503.6550, L100.0100, L503.0106 #### [facility] [address] [place], [address] Sodium [Moles/Vol] 138 mmol/L Normal 133-145 [facility] Comment on above: Performed By: #### L 506.1001, L500.4100, L503.6030, L506.0200, L501.9520, L500.4050, L503.6550, L100.0100, L503.0106 #### [facility] [address] [place], [place], [id number] (543) T PROT 6.9 g/dL Normal 5.9-8.4 [facility] Comment on above: Performed By: #### L 506.1001, L500.4100, L503.6030, L506.0200, L501.9520, L500.4050, L503.6550, L100.0100, L503.0106 #### [facility] [address] [place], [place], [id number] (643) Urea nitrogen [Mass/Vol] 11 mg/dL Normal 4-19 [facility] Comment on above: Performed By: #### L 506.1001, L500.4100, L503.6030, L506.0200, L501.9520, L500.4050, L503.6550, L100.0100, L503.0106 #### [facility] [address] [place], [address] Eosinophil percentageOrdered By: Breezy Alegria on 03-01-2025 Eosinophils/100 WBC (Bld) 2.9 % 0-5 [facility] Erythrocyte distribution wid th ratioOrdered By: Breezy Alegria on 03-01-2025 Erythrocyte distribution width (RBC) [Ratio] 13.0 % 11.6-14.6 [facility] Erythrocyte distribution wid th standard deviationOrdered By: Breezy Alegria on 03-01-2025 Erythrocyte distribution width (RBC) [Ratio] 44.4 fl High 35.1-43.9 [facility] Ferritinon 03-01-2025 Ferritin [Mass/Vol] 144 ng/mL Normal 22-378 [facility] Comment on above: Performed By: #### L 506.1001, L500.4100, L503.6030, L506.0200, L501.9520, L500.4050, L503.6550, L100.0100, L503.0106 #### [facility] [address] [place], [address] Folate [Mass/volume] in Seru m or PlasmaOrdered By: Breezy Alegria on 03-01-2025 Folate [Mass/Vol] 37.50 ng/mL High 4.60-34.80 [facility] Folates,Serum (Folic Acid)on 03-01-2025 FOLATES,SERUM 37.50 ng/mL High 4.60-34.80 [facility] Comment on above: Order Comment: N Performed By: #### L 506.1001, L500.4100, L503.6030, L506.0200, L501.9520, L500.4050, L503.6550, L100.0100, L503.0106 ####[facility] [address] [place], [address] Glomerular filtration rate ( GFR) estimation/1.73 sq m using serum, plasma, or whole bOrdered By: Breezy Alegria on 03-01-2025 GFR/1.73 sq M.predicted among non-blacks MDRD (S/P/Bld) [Vol rate/Area] 111 mL/min/{1.73_m2} >60 [facility] Comment on above: mL/min/1.73m2 CKD-EP I Creatinine Equation (2020) Hematocrit Auto (Bld) [Volum e fraction]Ordered By: Breezy Alegria on 03-01-2025 Hematocrit (Bld) [Volume fraction] 37.5 % 37-47 [facility] Hemoglobin measurementOrdere d By: Breezy Alegria on 03-01-2025 Hemoglobin (Bld) [Mass/Vol] 12.6 g/dL 12.0-15.0 [facility] Immature granulocytes/100 WB C Auto (Bld)Ordered By: Breezy Alegria on 03-01-2025 Immature granulocytes/100 WBC (Bld) 0.200 % 0.0-0.9 [facility] Comment on above: IG% - Immature Granu locytes (promyelocytes, myelocytes and metamyelocytes) > 1% indicates that a LEFT SHIFT is Present. Iron measurement (mass/mass) Ordered By: Breezy Alegria on 03-01-2025 Iron (Unsp spec) [Mass/Mass] 99 ug/dL 50-170 [facility] Iron+Iron Binding Capacityon 03-01-2025 Iron [Mass/Vol] 99 ug/dL Normal 50-170 [facility] Comment on above: Performed By: #### L 506.1001, L500.4100, L503.6030, L506.0200, L501.9520, L500.4050, L503.6550, L100.0100, L503.0106 ####[facility] [address] [place], [address] IRON SATURATION 34.0 Normal 13-59 [facility] Comment on above: Performed By: #### L 506.1001, L500.4100, L503.6030, L506.0200, L501.9520, L500.4050, L503.6550, L100.0100, L503.0106 ####[facility] [address] [place], [address] TIBC 294 ug/dL Normal 250-450 [facility] Comment on above: Performed By: #### L 506.1001, L500.4100, L503.6030, L506.0200, L501.9520, L500.4050, L503.6550, L100.0100, L503.0106 ####[facility] [address] [place], [address] UIBC 195 ug/dL Low 228-428 [facility] Comment on above: Performed By: #### L 506.1001, L500.4100, L503.6030, L506.0200, L501.9520, L500.4050, L503.6550, L100.0100, L503.0106 ####[facility] [address] [place], [address] LDL calc ser/plasOrdered By: Breezy Alegria on 03-01-2025 Cholesterol in LDL [Mass/Vol] 60 mg/dL [facility] Comment on above: Orvtvhzxrc=007-968 m g/dL & Higher Vtig=275 mg/dL or greaterFriedwald Equation for LDL-C Laboratory - Chemistry and C hemistry - challengeOrdered By: Breezy Alegria on 03-01-2025 AST [Catalytic activity/Vol] 21 U/L <32 [facility] Lipid Profileon 03-01-2025 CHOL:HDL 3.11 Normal [facility] Comment on above: Performed By: #### L 506.1001, L500.4100, L503.6030, L506.0200, L501.9520, L500.4050, L503.6550, L100.0100, L503.0106 #### [facility] [address] [place], [address] Cholesterol [Mass/Vol] 183 mg/dL Normal <=200 [facility] Comment on above: Result Comment: Chol esterol level, Desirable <200 mg/dL Borderline high cholesterol 200-239 mg/dL High cholesterol >=240 mg/dL Recommendations of the NCEP Adult Treatment Panel for the following risk-cutoff thresholds for the [place] population. Performed By: #### L 506.1001, L500.4100, L503.6030, L506.0200, L501.9520, L500.4050, L503.6550, L100.0100, L503.0106 #### [facility] [address], [address] Cholesterol in HDL [Mass/Vol] 59 mg/dL Normal [facility] Comment on above: Result Comment: Margi onal Cholesterol Education Program (NCEP) guidelines: <40 mg/dL: Low HDL-cholesterol (major risk factor for CHD) >= 60 mg/dL: High HDL-cholesterol (negative risk factor for CHD) HDL-cholesterol is affected by a number of factors, e.g. smoking, exercise, hormones, sex and age. Performed By: #### L 506.1001, L500.4100, L503.6030, L506.0200, L501.9520, L500.4050, L503.6550, L100.0100, L503.0106 #### [facility] [address] [place], [address] Cholesterol in LDL [Mass/Vol] 60 mg/dL Normal [facility] Comment on above: Result Comment: Bord urjkzh=910-129 mg/dL Higher Lnfj=258 mg/dL or greater Friedwald Equation for LDL-C Performed By: #### L 506.1001, L500.4100, L503.6030, L506.0200, L501.9520, L500.4050, L503.6550, L100.0100, L503.0106 #### [facility] [address] [place], [address] Cholesterol in VLDL [Mass/Vol] 64 mg/dL High 5-40 [facility] Comment on above: Performed By: #### L 506.1001, L500.4100, L503.6030, L506.0200, L501.9520, L500.4050, L503.6550, L100.0100, L503.0106 #### [facility] [address] [place], [place], [address] Triglyceride [Mass/Vol] 320 mg/dL High [facility] Comment on above: Result Comment: The drugs N-Acetylcysteine and Metamizole may falsely depress this assay. Normal range: <150 mg/dL Borderline High: 150-199 mg/dL High: 200-499 mg/dL Very High: >500 mg/dL Performed By: #### L 506.1001, L500.4100, L503.6030, L506.0200, L501.9520, L500.4050, L503.6550, L100.0100, L503.0106 #### [facility] [address] [place], [place], [address] MCV (mean corpuscular volume ) determinationOrdered By: Breezy Alegria on 03-01-2025 MCV (RBC) [Entitic vol] 93.3 fL 81-99 [facility] Mean corpuscular hemoglobin (MCH) determinationOrdered By: Breezy Alegria on 03-01-2025 MCH (RBC) [Entitic mass] 31.3 pg 27.0-32.0 [facility] Mean corpuscular hemoglobin concentration (MCHC) determinationOrdered By: Breezy Alegria on 03-01-2025 MCHC (RBC) [Mass/Vol] 33.6 g/dL 32-36 [facility] Mean platelet volume determi nationOrdered By: Breezy Alegria on 03-01-2025 Platelet mean volume (Bld) [Entitic vol] 10.2 fL 6.2-12.0 [facility] Monocyte percentageOrdered B y: Breezy Alegria on 03-01-2025 Monocytes/100 WBC (Bld) 9.8 % 0-10 [facility] Neutrophil percentageOrdered By: Breezy Alegria on 03-01-2025 Neutrophils/100 WBC (Bld) 53.5 % 47-70 [facility] No Panel InformationOrdered By: Breezy Alegria on 03-01-2025 Unsaturated Iron Binding Capacity 195 ug/dL Low 228-428 [facility] Nucleated red blood cell per centageOrdered By: Breezy Alegria on 03-01-2025 Nucleated RBC/100 WBC (Bld) [Ratio] 0 % 0-5 [facility] Platelet countOrdered By: Olya Alegria on 03-01-2025 Platelets (Bld) [#/Vol] 279 10*3/uL 150-450 [facility] Potassium measurement (mass/ volume)Ordered By: Breezy Alegria on 03-01-2025 Potassium (Unsp spec) [Mass/Vol] 4.3 mmol/L 3.3-5.1 [facility] RBC Auto (Bld) [#/Vol]Ordere d By: Breezy Alegria on 03-01-2025 RBC (Bld) [#/Vol] 4.02 10*6/uL Low 4.2-5.4 [facility] Screening total cholesterol/ high density lipoprotein (HDL) cholesterol ratioOrdered By: Breezy Alegria on 03-01-2025 Cholesterol.total/Liana sterol in HDL [Mass ratio] 3.11 {ratio} [facility] Serum creatinine measurement (mass/volume)Ordered By: Breezy Alegria on 03-01-2025 Creatinine [Mass/Vol] 0.59 mg/dL Low 0.70-1.20 [facility] Serum globulin measurementOr dered By: Breezy Alergia on 03-01-2025 Globulin (S) [Mass/Vol] 2.7 g/dL 2.2-4.2 [facility] Serum glucose measurement (m ass/volume)Ordered By: Breezy Alegria on 03-01-2025 Glucose [Mass/Vol] 93 mg/dL 70-99 [facility] Serum or plasma alanine hummel otransferase (ALT) measurementOrdered By: Breezy Alegria on 03-01-2025 ALT [Catalytic activity/Vol] 23 U/L <35 [facility] Serum or plasma albumin new urement (mass/volume)Ordered By: Breezy Alegria on 03-01-2025 Albumin [Mass/Vol] 4.3 g/dL 3.5-5.0 [facility] Serum or plasma albumin/glob ulin mass ratioOrdered By: Breezy Alegria on 03-01-2025 Albumin/Globulin [Mass ratio] 1.6 {ratio} 0.9-2.4 [facility] Serum or plasma alkaline spencer sphatase measurementOrdered By: Breezy Alegria on 03-01-2025 ALP [Catalytic activity/Vol] 71 U/L 35-104 [facility] Serum or plasma calcium new urement (mass/volume)Ordered By: Breezy Alegria on 03-01-2025 Calcium [Mass/Vol] 9.6 mg/dL 7.6-11.0 [facility] Serum or plasma cholesterol in HDL measurement (mass/volume)Ordered By: Breezy Alegria on 03-01-2025 Cholesterol in HDL [Mass/Vol] 59 mg/dL >40 [facility] Comment on above: National Cholesterol Education Program (NCEP) guidelines:<40 mg/dL: Low HDL-cholesterol (major risk factor for CHD)>= 60 mg/dL: High HDL-cholesterol (negative risk factor for CHD)HDL-cholesterol is affected by a number of factors, e.g. smoking, exercise, hormones, sex and age. Serum or plasma cholesterol measurement (mass/volume)Ordered By: Breezy Alegria on 03-01-2025 Cholesterol [Mass/Vol] 183 mg/dL <201 [facility] Comment on above: Cholesterol level, D esirable <200 mg/dLBorderline high cholesterol 200-239 mg/dLHigh cholesterol >=240 mg/dLRecommendations of the NCEP Adult Treatment Panel for the following risk-cutoff thresholds for the [place] population. Serum or plasma ferritin santos surement (mass/volume)Ordered By: Breezy Alegria on 03-01-2025 Ferritin [Mass/Vol] 144 ng/mL 22-378 [facility] Serum or plasma iron saturat ion measurement (mass fraction)Ordered By: Breezy Alegria on 03-01-2025 Iron saturation [Mass fraction] 34.0 % 13-59 [facility] Serum or plasma urea nitroge n measurement (mass/volume)Ordered By: Breezy Alegria on 03-01-2025 Urea nitrogen [Mass/Vol] 11 mg/dL 4-19 [facility] Sodium levelOrdered By: Breezy Alegria on 03-01-2025 Sodium [Moles/Vol] 138 mmol/L 133-145 [facility] TSH DL <= 0.005 mIU/L QnOrde red By: Breezy Alegria on 03-01-2025 TSH Qn 3.570 uIU/mL 0.300-4.200 [facility] Thyroid Stim Hormone (TSH)on 03-01-2025 TSH 3.570 uIU/mL Normal 0.300-4.200 [facility] Comment on above: Performed By: #### L 506.1001, L500.4100, L503.6030, L506.0200, L501.9520, L500.4050, L503.6550, L100.0100, L503.0106 #### [facility] [address] [place], [address] Total proteinOrdered By: Reble Alegria on 03-01-2025 Protein [Mass/Vol] 6.9 g/dL 5.9-8.4 [facility] Triglycerides measurementOrd ered By: Breezy Alegria on 03-01-2025 Triglyceride [Mass/Vol] 320 mg/dL High <199 [facility] Comment on above: The drugs N-Acetylcy steine and Metamizole may falsely depress this assay. Normal range: <150 mg/dLBorderline High: 150-199 mg/dLHigh: 200-499 mg/dLVery High: >500 mg/dL Vitamin B12on 03-01-2025 Cobalamin (Vitamin B12) [Mass/Vol] 1985 pg/mL High 180-914 [facility] Comment on above: Performed By: #### L 506.1001, L500.4100, L503.6030, L506.0200, L501.9520, L500.4050, L503.6550, L100.0100, L503.0106 #### [facility] [address] [place], [address] Vitamin B12 ser/plasOrdered By: Breezy Alegria on 03-01-2025 Cobalamin (Vitamin B12) [Mass/Vol] 1985 pg/mL High 180-914 [facility] Vitamin D,25 Hydroxyon 03-01 Vitamin D 25-OH 51.3 ng/mL Normal 30-100 [facility] Comment on above: Result Comment: Kathy min D Status Deficiency: <20 ng/mL (50nmol/L) Insufficiency: 20-30 ng/mL (50-75 nmol/L) Sufficiency: 30-100 ng/mL (75-250 nmol/L) Toxicity: >100 ng/mL (>250 nmol/L) Performed By: #### L 506.1001, L500.4100, L503.6030, L506.0200, L501.9520, L500.4050, L503.6550, L100.0100, L503.0106 ####[facility] [address] [place], [address] White blood cell (WBC) count Ordered By: Breezy Alegria on 03-01-2025 WBC (Bld) [#/Vol] 4.5 10*3/uL 4.4-11.0 [facility] NCS and/or EMG Patienton NCS and/or EMG Patient [facility] Services/Neurology [address] [place] [address] MR#: [id number] Acct: [id number] Name: TIERRA MALCOLM Rep #: [id number] : 1975 49 From: Aury Jennings MD Referring Dr: Trino Christian MD Status: REG CL I Location: [facility] Date: 12/28/24 Sex: F C NCS and/or EMG Patient Report Ordering Doctor: tierra malcolm DATE OF SERVICE: 12/28/24 Tierra presents with complaints of numbness and tingling in both hands. She also has pain in the left shoulder radiating down the arm. Electrodiagnostic findings: Left median motor nerve demonstrates prolonged latency with normal amplitude and reduced conduction velocity. Right median motor nerve demonstrates prolonged latency with normal amplitude and reduced conduction velocity. Left ulnar motor response within normal limits. Right ulnar motor response within normal limits. Normal median ulnar F???waves. Median sensory latency at the wrist bilaterally. Needle EMG testing was performed in the upper limbs. 1+ fibrillations noted in the left lower cervical paraspinals, left first dorsal interosseous and left triceps. Motor unit action potentials normal amplitude and duration. Electrodiagnostic impression: This is an abnormal study in the upper limbs 1. Electrodiagnostic findings suggestive of bilateral median mononeuropathy. This is consistent with a mild bilateral carpal tunnel syndrome. 2. Electrodiagnostic findings suggestive of an acute left C8 radiculopathy. Recommend correlation with cervical spine imaging. Multi Select Codes Neurology Neurology Interp Codes: 22120-84 Musc test done w/n test comp (interp) (2) and 05974-47 Nrv cndj test 9-10 studies (interp) 12/28/24 1459 Date Aury Jennings MD CC: Dr. Aury Jennings MD; Dr. Breezy Alegria MD; Dr. Trino Christian MD Date Dictated: 12/28/241455 Date Transcribed: 12/28/241455 Division Chief: JOE Signed Normal [facility] Neurology Visit Reporton Neurology Visit Report [facility] [address], [address] [place] [address] OFFICE VISIT Date of Service: 12/14/24 MR#: [id number] Acct: [id number] Name: TIERRA MALCOLM Rep #: [id number] : 1975 Provider: Dr. Trino jolley MD Age/Sex: 49/F Location[place] [facility] [place] Status: Signed [facility] Chief Complaint: Details: Interim History: Tierra [...] other triggers for her headaches. Acetaminophen and ycnd-hpx-wqmnpdc ibuprofen have been of benefit for milder [...] BONES/JOINTS: U (more content not included)... 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 Report [facility] [address], [address] [place] [address] OFFICE VISIT Date of Service: 09/08/24 MR#: [id number] Acct: [id number] Name: TIERRA MALCOLM Rep #: [id number] : 1975 Provider: KANDY ulrich Age/Sex: 49/F Location: [facility] [place] Status: Signed Intake Vital Signs 06/13/24 07:29 09/08/24 08:48 09/08/24 08:52 Height 5 ft 3 in 5 ft 3 in 5 ft 3 in Weight: 171 lb BMI 30.2 BP 124/82 H Intake Visit Reasons: Medication follow up Chief Complaint: Med f/u Reinforcing [employer] Worker Required: No Is patient in pain?: [...] occupational status: employed 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 Normal [facility] Thyroglobulin Antibodyon TG AB < 1.0 Normal 0.0-0.9 [facility] Comment on above: Result Comment: Thyr oglobulin Antibody measured by [place] Methodology It should be noted that the presence of thyroglobulin antibodies may not be pathogenic nor diagnostic, especially at very low levels. The assay hypoid gear generator has found that four percent of individuals without evidence of thyroid disease or autoimmunity will have positive TgAb levels up to 4 IU/mL. Performed By: #### L 500.4050 #### [facility] [address] [place], [place], [id number] Thyroid Peroxidase ABon 08-13 THYR PEROX AB < 9 Normal 0-34 [facility] Comment on above: Result Comment: Perf ormed at: - [facility] [address] [id number] Assurance Associate: Jose Miguel Grimm PhD, Phone: [phone] Performed By: #### L 500.4050 #### [facility] [address] [place], [place], [id number] Ferritinon 08-24-2024 Ferritin [Mass/Vol] 88 ng/mL Normal 8-252 [facility] Comment on above: Order Comment: Order Date: 08/24/24Order Info: 2500-7 - TIBCOrder Info: 2498-4 - FEOrder Info: 2276-4 - FEROrder Info: 2284-8 - FOLS Performed By: #### L 506.0250, L503.6150, L503.6075, L503.6550, L503.0105 ####[facility] [address] [place], [place], [address] Ferritin measurementOrdered By: Breezy Alegria on 08-24-2024 Ferritin [Mass/Vol] 88 ng/mL 8-252 [facility] Folates, (Folic Acid)on 08-13 FOLATES 22.10 ng/mL Normal 3.1-55.4 [facility] Comment on above: Order Comment: Order Date: 08/24/24Order Info: 2499-7 - TIBCOrder Info: 2497-10 - FEOrder Info: 2275-10 - FEROrder Info: 8 - FOLSN Performed By: #### L 506.0250, L503.6150, L503.6075, L503.6550, L503.0105 ####[facility] [address] [place], [address] Ironon 08-24-2024 Iron [Mass/Vol] 109 ug/dL Normal 50-170 [facility] Comment on above: Order Comment: Order Date: 08/24/24Order Info: 7 - TIBCOrder Info: 2497-10 - FEOrder Info: 2275-10 - FEROrder Info: 2284-02 - FOLS Performed By: #### L 506.0250, L503.6150, L503.6075, L503.6550, L503.0105 ####[facility] [address] [place], [address] Iron Binding Capacity,Totalo n 08-24-2024 TIBC 333 ug/dL Normal 250-450 [facility] Comment on above: Order Comment: Order Date: 08/24/24Order Info: 7 - TIBCOrder Info: 2497-10 - FEOrder Info: 2275-10 - FEROrder Info: 8 - FOLS Performed By: #### L 506.0250, L503.6150, L503.6075, L503.6550, L503.0105 ####[facility] [address] [place], [address] Iron measurement (mass/mass) Ordered By: Breezy Alegria on 08-24-2024 Iron (Unsp spec) [Mass/Mass] 109 ug/dL 50-170 [facility] Serum or plasma thyroperoxid ase antibody assay (units/volume)Ordered By: Breezy Alegria on 08-24-2024 TPO Ab Qn [IU]/mL 0-34 [facility] Comment on above: Performed at: [address] [id number] Director: Jose Miguel Grimm PhD, Phone: [phone] Vitamin B12on 08-24-2024 Cobalamin (Vitamin B12) [Mass/Vol] 397 pg/mL Normal 211-911 [facility] Comment on above: Order Comment: Order Date: 08/24/24Order Info: 2132-03 - B12 Performed By: #### L 506.0250, L503.6150, L503.6075, L503.6550, L503.0105 ####[facility] [address] [place], [place], [id number] Vitamin B12 measurementOrder ed By: Breezy Alegria on 08-24-2024 Cobalamin (Vitamin B12) [Mass/Vol] 397 pg/mL 211-911 [facility] Absolute lymphocyte countOrd ered By: Breezy Alegria on 08-23-2024 Lymphocytes Auto (Unsp spec) [#/Vol] 1.58 10*3/uL 0.83-4.51 [facility] Absolute neutrophil countOrd ered By: Breezy Alegria on 08-23-2024 Neutrophils (Bld) [#/Vol] 1.6 10*3/uL Low 2.0-7.7 [facility] Albumin to globulin ratioOrd ered By: Breezy Alegria on 08-23-2024 Albumin/Globulin [Mass ratio] 1.1 {ratio} 0.9-2.4 [facility] Automated lymphocyte count a s percentage of total leukocytesOrdered By: Breezy Alegria on 08-23-2024 Lymphocytes/100 WBC Auto (Unsp spec) 35.5 % 19-41 [facility] Basophil percentageOrdered B y: Breezy Alegria on 08-23-2024 Basophils/100 WBC (Bld) 1.1 % High 0-1 [facility] Bilirubin, totalOrdered By: Breezy Alegria on 08-23-2024 Bilirubin [Mass/Vol] 0.40 mg/dL 0.20-1.00 [facility] Comment on above: For patients on eltr ombopag therapy, use of Dimension Lena TBIL is not recommended. Blood urea nitrogen (BUN)/cr eatinine ratioOrdered By: Breezy Alegria on 08-23-2024 Urea nitrogen/Creatinine [Mass ratio] 25.9 mg/mg High 10-20 [facility] CBC W/Diff, Automatedon 08-13 Absolute Lymph 1.58 X10 3/uL Normal 0.83-4.51 [facility] Comment on above: Order Comment: Order Date: 05/26/24Order Info: 0184- - CBCD Performed By: #### L 501.9520, L500.4050, L506.1000, L506.0400, L100.0100, L500.4100 ####[facility] [address] [place], [address] Absolute Neut 1.6 X10 3/uL Low 2.0-7.7 [facility] Comment on above: Order Comment: Order Date: 05/26/24Order Info: 018- - CBCD Performed By: #### L 501.9520, L500.4050, L506.1000, L506.0400, L100.0100, L500.4100 ####[facility] [address] [place], [address] Basophils/100 WBC (Bld) 1.1 % High 0-1 [facility] Comment on above: Order Comment: Order Date: 05/26/24Order Info: 018- - CBCD Performed By: #### L 501.9520, L500.4050, L506.1000, L506.0400, L100.0100, L500.4100 ####[facility] [address] [place], [address] Eosinophils/100 WBC (Bld) 18.0 % High 0-5 [facility] Comment on above: Order Comment: Order Date: 05/26/24Order Info: 0184-1 - CBCD Performed By: #### L 501.9520, L500.4050, L506.1000, L506.0400, L100.0100, L500.4100 ####[facility] [address] [place], [address] Erythrocyte distribution width (RBC) [Ratio] 13.0 % Normal 11.6-14.6 [facility] Comment on above: Order Comment: Order Date: 05/26/24Order Info: 0184-1 - CBCD Performed By: #### L 501.9520, L500.4050, L506.1000, L506.0400, L100.0100, L500.4100 ####[facility] [address] [place], [address]) Hematocrit (Bld) [Volume fraction] 36.5 % Low 37-47 [facility] Comment on above: Order Comment: Order Date: 05/26/24Order Info: 0184-1 - CBCD Performed By: #### L 501.9520, L500.4050, L506.1000, L506.0400, L100.0100, L500.4100 ####[facility] [address] [place], [address]) Hemoglobin (Bld) [Mass/Vol] 11.8 g/dL Low 12.0-15.0 [facility] Comment on above: Order Comment: Order Date: 05/26/24Order Info: 0184-1 - CBCD Performed By: #### L 501.9520, L500.4050, L506.1000, L506.0400, L100.0100, L500.4100 ####[facility] [address] [place], [address] IG% 0.200 Normal 0.0-0.9 [facility] Comment on above: Order Comment: Order Date: 05/26/24Order Info: 0184-1 - CBCD Result Comment: IG% - Immature Granulocytes (promyelocytes, myelocytes and metamyelocytes) > 1% indicates that a LEFT SHIFT is Present. Performed By: #### L 501.9520, L500.4050, L506.1000, L506.0400, L100.0100, L500.4100 ####[facility] [address] [place], [address] Lymphocytes/100 WBC (Bld) 35.5 % Normal 19-41 [facility] Comment on above: Order Comment: Order Date: 05/26/24Order Info: 0184-1 - CBCD Performed By: #### L 501.9520, L500.4050, L506.1000, L506.0400, L100.0100, L500.4100 ####[facility] [address] [place], [address] MCH (RBC) [Entitic mass] 29.8 pg Normal 27.0-32.0 [facility] Comment on above: Order Comment: Order Date: 05/26/24Order Info: 0184-1 - CBCD Performed By: #### L 501.9520, L500.4050, L506.1000, L506.0400, L100.0100, L500.4100 ####[facility] [address] [place], [address] MCHC (RBC) [Mass/Vol] 32.3 g/dL Normal 32-36 [facility] Comment on above: Order Comment: Order Date: 05/26/24Order Info: 0184-1 - CBCD Performed By: #### L 501.9520, L500.4050, L506.1000, L506.0400, L100.0100, L500.4100 ####[facility] [address] [place], [address] MCV (RBC) [Entitic vol] 92.2 fL Normal 81-99 [facility] Comment on above: Order Comment: Order Date: 05/26/24Order Info: 0184-1 - CBCD Performed By: #### L 501.9520, L500.4050, L506.1000, L506.0400, L100.0100, L500.4100 ####[facility] [address] [place], [address] Monocytes/100 WBC (Bld) 9.4 % Normal 0-10 [facility] Comment on above: Order Comment: Order Date: 05/26/24Order Info: 018- - CBCD Performed By: #### L 501.9520, L500.4050, L506.1000, L506.0400, L100.0100, L500.4100 ####[facility] [address] [place], [address] Neutrophils/100 WBC (Bld) 35.8 % Low 47-70 [facility] Comment on above: Order Comment: Order Date: 05/26/24Order Info: 018- - CBCD Performed By: #### L 501.9520, L500.4050, L506.1000, L506.0400, L100.0100, L500.4100 ####[facility] [address] [place], [address] Nucleated RBC (Bld) [#/Vol] 0 10*3/uL Normal 0-5 [facility] Comment on above: Order Comment: Order Date: 05/26/24Order Info: 018- - CBCD Performed By: #### L 501.9520, L500.4050, L506.1000, L506.0400, L100.0100, L500.4100 ####[facility] [address] [place], [address] Platelet mean volume (Bld) [Entitic vol] 10.8 fL Normal 6.2-12.0 [facility] Comment on above: Order Comment: Order Date: 05/26/24Order Info: 018-1 - CBCD Performed By: #### L 501.9520, L500.4050, L506.1000, L506.0400, L100.0100, L500.4100 ####[facility] [address] [place], [address] Platelets (Bld) [#/Vol] 266 10*3/uL Normal 150-450 [facility] Comment on above: Order Comment: Order Date: 05/26/24Order Info: 018- - CBCD Performed By: #### L 501.9520, L500.4050, L506.1000, L506.0400, L100.0100, L500.4100 ####[facility] [address] [place], [address] RBC (Bld) [#/Vol] 3.96 10*6/uL Low 4.2-5.4 [facility] Comment on above: Order Comment: Order Date: 05/26/24Order Info: 018- - CBCD Performed By: #### L 501.9520, L500.4050, L506.1000, L506.0400, L100.0100, L500.4100 ####[facility] [address] [place], [address] RDW SD 43.7 fl Normal 35.1-43.9 [facility] Comment on above: Order Comment: Order Date: 05/26/24Order Info: 0184- - CBCD Performed By: #### L 501.9520, L500.4050, L506.1000, L506.0400, L100.0100, L500.4100 ####[facility] [address] [place], [address] WBC (Bld) [#/Vol] 4.5 10*3/uL Normal 4.4-11.0 [facility] Comment on above: Order Comment: Order Date: 05/26/24Order Info: 0184- - CBCD Performed By: #### L 501.9520, L500.4050, L506.1000, L506.0400, L100.0100, L500.4100 ####[facility] [address] [place], [address] Carbon dioxide measurementOr dered By: Breezy Alegria on 08-23-2024 CO2 [Moles/Vol] 27.0 mmol/L 21.0-32.0 [facility] Chloride measurementOrdered By: Breezy Alegria on 08-23-2024 Chloride [Moles/Vol] 108 mmol/L High 98-107 [facility] Comprehensive Metabolic Prof ilon 08-23-2024 Albumin [Mass/Vol] 3.5 g/dL Normal 3.2-5.0 [facility] Comment on above: Order Comment: Order Date: 05/23/24 Order Info: 0786-1 - CMP Order Info: [id number] - LIPID Order Info: 3015-3 - TSH Order Info: 3023-7 - T4F Performed By: #### L 500.4050 #### [facility] [address] [place], [address] Albumin/Globulin [Mass ratio] 1.1 {ratio} Normal 0.9-2.4 [facility] Comment on above: Order Comment: Order Date: 05/23/24 Order Info: 0786-1 - CMP Order Info: 67428-2 - LIPID Order Info: 3016-3 - TSH Order Info: 302-7 - T4F Performed By: #### L 500.4050 #### [facility] [address] [place], [address] ALK P 78 U/L Normal 45-117 [facility] Comment on above: Order Comment: Order Date: 05/23/24 Order Info: 0786-1 - CMP Order Info: 32677-2 - LIPID Order Info: 3016-3 - TSH Order Info: 302-7 - T4F Performed By: #### L 500.4050 #### [facility] [address] [place], [address] ALT [Catalytic activity/Vol] 31 U/L Normal 13-56 [facility] Comment on above: Order Comment: Order Date: 05/23/24 Order Info: 86-1 - CMP Order Info: [id number] - LIPID Order Info: 3016-3 - TSH Order Info: 302-7 - T4F Performed By: #### L 500.4050 #### [facility] [address] [place], [address] AST [Catalytic activity/Vol] 24 U/L Normal 15-37 [facility] Comment on above: Order Comment: Order Date: 05/23/24 Order Info: 86-1 - CMP Order Info: [id number] - LIPID Order Info: 3016-3 - TSH Order Info: 3027 - T4F Performed By: #### L 500.4050 #### [facility] [address] [place], [address] Bilirubin [Mass/Vol] 0.40 mg/dL Normal 0.20-1.00 [facility] Comment on above: Order Comment: Order Date: 05/23/24 Order Info: 785-1 - CMP Order Info: [id number] - LIPID Order Info: 3016-3 - TSH Order Info: 302-7 - T4F Result Comment: For patients on eltrombopag therapy, use of Dimension Lena TBIL is not recommended. Performed By: #### L 500.4050 #### [facility] [address] [place], [address] BUN/CRE 25.9 RATIO High 10-20 [facility] Comment on above: Order Comment: Order Date: 05/23/24 Order Info: 785-1 - CMP Order Info: [id number] - LIPID Order Info: 3016-3 - TSH Order Info: 302-7 - T4F Performed By: #### L 500.4050 #### [facility] [address] [place], [address] CA,Total 9.2 mg/dL Normal 8.5-10.1 [facility] Comment on above: Order Comment: Order Date: 05/23/24 Order Info: 785-1 - CMP Order Info: [id number] - LIPID Order Info: 3 - TSH Order Info: 7 - T4F Performed By: #### L 500.4050 #### [facility] [address] [place], [place], [address] Chloride [Moles/Vol] 108 mmol/L High 98-107 [facility] Comment on above: Order Comment: Order Date: 05/23/24 Order Info: 0786-1 - CMP Order Info: 50730-6 - LIPID Order Info: 3 - TSH Order Info: 30247 - T4F Performed By: #### L 500.4050 #### [facility] [address] [place], [place], [address] CO2 [Moles/Vol] 27.0 mmol/L Normal 21.0-32.0 [facility] Comment on above: Order Comment: Order Date: 05/23/24 Order Info: 86-1 - CMP Order Info: [id number] - LIPID Order Info: 3 - TSH Order Info: 7 - T4F Performed By: #### L 500.4050 #### [facility] [address] [place], [place], [address] Creatinine [Mass/Vol] 0.54 mg/dL Low 0.55-1.02 [facility] Comment on above: Order Comment: Order Date: 05/23/24 Order Info: 0786-1 - CMP Order Info: [id number] - LIPID Order Info: 3 - TSH Order Info: 3024-7 - T4F Result Comment: The validity of the calculated GFR GFRAA in patients over 70 years has not been determined. Clinical correlation is essential. Performed By: #### L 500.4050 #### [facility] [address] [place], [place], [address] EST GFR - AA 155 mL/min Normal >60 [facility] Comment on above: Order Comment: Order Date: 05/23/24 Order Info: 0786-1 - CMP Order Info: 35623-8 - LIPID Order Info: 3016-3 - TSH Order Info: 302-7 - T4F Result Comment: Afri can Belgian GFR Calc Performed By: #### L 500.4050 #### [facility] [address] [place], [address] GAP 5 Normal 5-15 [facility] Comment on above: Order Comment: Order Date: 05/23/24 Order Info: 86-1 - CMP Order Info: [id number] - LIPID Order Info: 3 - TSH Order Info: 3027 - T4F Performed By: #### L 500.4050 #### [facility] [address] [place], [address] GFR/1.73 sq M.predicted among non-blacks MDRD (S/P/Bld) [Vol rate/Area] 128 mL/min/{1.73_m2} Normal >60 [facility] Comment on above: Order Comment: Order Date: 05/23/24 Order Info: 785-1 - CMP Order Info: [id number] - LIPID Order Info: 3 - TSH Order Info: 7 - T4F Result Comment: Non- GFR Calc Performed By: #### L 500.4050 #### [facility] [address] [place], [address] Globulin (S) [Mass/Vol] 3.3 g/dL Normal 2.2-4.2 [facility] Comment on above: Order Comment: Order Date: 05/23/24 Order Info: 785-1 - CMP Order Info: [id number] - LIPID Order Info: 3 - TSH Order Info: 3027 - T4F Performed By: #### L 500.4050 #### [facility] [address] [place], [address] Glucose [Mass/Vol] 95 mg/dL Normal 74-106 [facility] Comment on above: Order Comment: Order Date: 05/23/24 Order Info: 86-1 - CMP Order Info: [id number] - LIPID Order Info: 3016-3 - TSH Order Info: 3024-7 - T4F Performed By: #### L 500.4050 #### [facility] [address] [place], [place], [address] Potassium [Moles/Vol] 4.3 mmol/L Normal 3.5-5.1 [facility] Comment on above: Order Comment: Order Date: 05/23/24 Order Info: 86-1 - CMP Order Info: [id number] - LIPID Order Info: 6-3 - TSH Order Info: 3024-7 - T4F Performed By: #### L 500.4050 #### [facility] [address] [place], [place], [address] Sodium [Moles/Vol] 140 mmol/L Normal 136-145 [facility] Comment on above: Order Comment: Order Date: 05/23/24 Order Info: 785-1 - CMP Order Info: [id number] - LIPID Order Info: 3015-3 - TSH Order Info: 3024-7 - T4F Performed By: #### L 500.4050 #### [facility] [address] [place], [place], [address] T PROT 6.8 g/dL Normal 6.4-8.2 [facility] Comment on above: Order Comment: Order Date: 05/23/24 Order Info: 785-1 - CMP Order Info: [id number] - LIPID Order Info: 3016-3 - TSH Order Info: 3024-7 - T4F Performed By: #### L 500.4050 #### [facility] [address] [place], [place], [address] Urea nitrogen [Mass/Vol] 14 mg/dL Normal 7-18 [facility] Comment on above: Order Comment: Order Date: 05/23/24 Order Info: 07-1 - CMP Order Info: [id number] - LIPID Order Info: 3016-3 - TSH Order Info: 3024-7 - T4F Performed By: #### L 500.4050 #### [facility] [address] [place], [address] Direct serum free thyroxine (FT4) measurementOrdered By: Breezy Alegria on 08-23-2024 Free T4 [Mass/Vol] 0.93 ng/dL 0.76-1.46 [facility] Eosinophil percentageOrdered By: Breezy Alegria on 08-23-2024 Eosinophils/100 WBC (Bld) 18.0 % High 0-5 [facility] Erythrocyte distribution wid th ratioOrdered By: Breezy Alegria on 08-23-2024 Erythrocyte distribution width (RBC) [Ratio] 13.0 % 11.6-14.6 [facility] Erythrocyte distribution wid th standard deviationOrdered By: Breezy Alegria on 08-23-2024 Erythrocyte distribution width (RBC) [Ratio] 43.7 fl 35.1-43.9 [facility] Glomerular filtration rate ( GFR) estimationOrdered By: Breezy Alegria on 08-23-2024 GFR/1.73 sq M.predicted among non-blacks MDRD (S/P/Bld) [Vol rate/Area] 128 mL/min/{1.73_m2} >60 [facility] Comment on above: Non- GFR Calc Glucose measurementOrdered B y: Breezy Alegria on 08-23-2024 Glucose [Mass/Vol] 95 mg/dL 74-106 [facility] Hematocrit Auto (Bld) [Volum e fraction]Ordered By: Breezy Alegria on 08-23-2024 Hematocrit (Bld) [Volume fraction] 36.5 % Low 37-47 [facility] Hemoglobin measurementOrdere d By: Breezy Alegria on 08-23-2024 Hemoglobin (Bld) [Mass/Vol] 11.8 g/dL Low 12.0-15.0 [facility] High density lipoprotein (HD L) measurementOrdered By: Breezy Alegria on 08-23-2024 Cholesterol in HDL [Mass/Vol] 53 mg/dL >40 [facility] Comment on above: The drugs N-Acetylcy steine and Metamizole may falsely depress this assay. Reference Range HDL <40 mg/dL Low HDL Cholesterol HDL >or= 60 mg/dL High HDL Cholesterol Immature granulocytes/100 WB C Auto (Bld)Ordered By: Breezy Alegria on 08-23-2024 Immature granulocytes/100 WBC (Bld) 0.200 % 0.0-0.9 [facility] Comment on above: IG% - Immature Granu locytes (promyelocytes, myelocytes and metamyelocytes) > 1% indicates that a LEFT SHIFT is Present. Laboratory - Chemistry and C hemistry - challengeOrdered By: Breezy Alegria on 08-23-2024 AST [Catalytic activity/Vol] 24 U/L 15-37 [facility] Lipid Profileon 08-23-2024 Cholesterol [Mass/Vol] 142 mg/dL Normal 200 [facility] Comment on above: Order Comment: Order Date: 05/23/24 Order Info: 07- - CMP Order Info: - LIPID Order Info: [id number] - TSH Order Info: 3024-01 - T4F Result Comment: <200 mg/dL Desirable 200-240 mg/dL Borderline >240 mg/dL High Risk Performed By: #### L 500.4050 #### [facility] [address] [place], [address] Cholesterol in HDL [Mass/Vol] 53 mg/dL Normal [facility] Comment on above: Order Comment: Order Date: 05/23/24 Order Info: 785-07 - CMP Order Info: - LIPID Order Info: [id number] - TSH Order Info: 3024-01 - T4F Result Comment: The drugs N-Acetylcysteine and Metamizole may falsely depress this assay. Reference Range HDL <40 mg/dL Low HDL Cholesterol HDL >or= 60 mg/dL High HDL Cholesterol Performed By: #### L 500.4050 #### [facility] [address] [place], [address] Cholesterol in LDL [Mass/Vol] 58 mg/dL Normal 0-130 [facility] Comment on above: Order Comment: Order Date: 05/23/24 Order Info: 0786-1 - CMP Order Info: [id number] - LIPID Order Info: 3015-09 - TSH Order Info: 3024-01 - T4F Performed By: #### L 500.4050 #### [facility] [address] [place], [place], [address] Cholesterol in VLDL [Mass/Vol] 31 mg/dL Normal 5-40 [facility] Comment on above: Order Comment: Order Date: 05/23/24 Order Info: 0786-1 - CMP Order Info: [id number] - LIPID Order Info: 3016-3 - TSH Order Info: 7 - T4F Performed By: #### L 500.4050 #### [facility] [address] [place], [address] Triglyceride [Mass/Vol] 153 mg/dL Normal [facility] Comment on above: Order Comment: Order Date: 05/23/24 Order Info: 0786-1 - CMP Order Info: [id number] - LIPID Order Info: 3016-3 - TSH Order Info: 7 - T4F Result Comment: The drugs N-Acetylcysteine and Metamizole may falsely depress this assay. Serum Triglycerides Reference Interval Normal <150 mg/dL Borderline high 150 - 199 mg/dL High 200 - 499 mg/dL Very High > or = 500 mg/dL Performed By: #### L 500.4050 #### [facility] [address] [place], [address] Low density lipoprotein (LDL ) cholesterol measurementOrdered By: Breezy Alegria on 08-23-2024 Cholesterol in LDL [Mass/Vol] 58 mg/dL 0-130 [facility] MCV (mean corpuscular volume ) determinationOrdered By: Breezy Alegria on 08-23-2024 MCV (RBC) [Entitic vol] 92.2 fL 81-99 [facility] Mean corpuscular hemoglobin (MCH) determinationOrdered By: Breezy Alegria on 08-23-2024 MCH (RBC) [Entitic mass] 29.8 pg 27.0-32.0 [facility] Mean corpuscular hemoglobin concentration (MCHC) determinationOrdered By: Breezy Alegria on 08-23-2024 MCHC (RBC) [Mass/Vol] 32.3 g/dL 32-36 [facility] Mean platelet volume determi nationOrdered By: Breezy Alegria on 08-23-2024 Platelet mean volume (Bld) [Entitic vol] 10.8 fL 6.2-12.0 [facility] Monocyte percentageOrdered B y: Breezy Alegria on 08-23-2024 Monocytes/100 WBC (Bld) 9.4 % 0-10 [facility] Neutrophil percentageOrdered By: Breezy Alegria on 08-23-2024 Neutrophils/100 WBC (Bld) 35.8 % Low 47-70 [facility] Nucleated red blood cell per centageOrdered By: Breezy Alegria on 08-23-2024 Nucleated RBC/100 WBC (Bld) [Ratio] 0 % 0-5 [facility] Platelet countOrdered By: Olya Alegria on 08-23-2024 Platelets (Bld) [#/Vol] 266 10*3/uL 150-450 [facility] Potassium measurementOrdered By: Breezy Alegria on 08-23-2024 Potassium [Moles/Vol] 4.3 mmol/L 3.5-5.1 [facility] RBC Auto (Bld) [#/Vol]Ordere d By: Breezy Alegria on 08-23-2024 RBC (Bld) [#/Vol] 3.96 10*6/uL Low 4.2-5.4 [facility] Serum anion gap measurementO rdered By: Breezy Alegria on 08-23-2024 Anion gap [Moles/Vol] 5 mmol/L 5-15 [facility] Serum globulin measurementOr dered By: Breezy Alegria on 08-23-2024 Globulin (S) [Mass/Vol] 3.3 g/dL 2.2-4.2 [facility] Serum or plasma alanine hummel otransferase (ALT) measurementOrdered By: Breezy Alegria on 08-23-2024 ALT [Catalytic activity/Vol] 31 U/L 13-56 [facility] Serum or plasma albumin new urement (mass/volume)Ordered By: Breezy Alegria on 08-23-2024 Albumin [Mass/Vol] 3.5 g/dL 3.2-5.0 [facility] Serum or plasma alkaline spencer sphatase measurementOrdered By: Breezy Alegria on 08-23-2024 ALP [Catalytic activity/Vol] 78 U/L 45-117 [facility] Serum or plasma calcium new urement (mass/volume)Ordered By: Breezy Alegria on 08-23-2024 Calcium [Mass/Vol] 9.2 mg/dL 8.5-10.1 [facility] Serum or plasma cholesterol measurement (mass/volume)Ordered By: Breezy Alegria on 08-23-2024 Cholesterol [Mass/Vol] 142 mg/dL <200 [facility] Comment on above: <200 mg/dL Desirable 200-240 mg/dL Borderline >240 mg/dL High Risk Serum or plasma creatinine m easurement (mass/volume)Ordered By: Breezy Alegria on 08-23-2024 Creatinine [Mass/Vol] 0.54 mg/dL Low 0.55-1.02 [facility] Comment on above: The validity of the calculated GFR & GFRAA in patients over 70 years has not been determined. Clinical correlation is essential. Serum or plasma thyroid stim ulating hormone (TSH) measurement (units/volume)Ordered By: Breezy Alegria on 08-23-2024 TSH Qn 0.836 uIU/mL 0.358-3.740 [facility] Serum or plasma urea nitroge n measurement (mass/volume)Ordered By: Breezy Alegria on 08-23-2024 Urea nitrogen [Mass/Vol] 14 mg/dL 7-18 [facility] Sodium levelOrdered By: Breezy Alegria on 08-23-2024 Sodium [Moles/Vol] 140 mmol/L 136-145 [facility] T4 Free Directon 08-23-2024 T4 FREE DIRECT 0.93 ng/dL Normal 0.76-1.46 [facility] Comment on above: Order Comment: Order Date: 05/23/24 Order Info: 0786-1 - CMP Order Info: [id number] - LIPID Order Info: 3016-3 - TSH Order Info: 3024-7 - T4F Performed By: #### L 500.4050 #### [facility] [place], [address] Thyroid Stim Hormone (TSH)on 08-23-2024 TSH 0.836 uIU/mL Normal 0.358-3.740 [facility] Comment on above: Order Comment: Order Date: 05/23/24 Order Info: 0786-1 - CMP Order Info: [id number] - LIPID Order Info: 3015-09 - TSH Order Info: 3024-01 - T4F Performed By: #### L 500.4050 #### [facility] [address] [place], [place], [address] Total proteinOrdered By: Rebel Alegria on 08-23-2024 Protein [Mass/Vol] 6.8 g/dL 6.4-8.2 [facility] Triglycerides measurementOrd ered By: Breezy Alegria on 08-23-2024 Triglyceride [Mass/Vol] 153 mg/dL <199 [facility] Comment on above: The drugs N-Acetylcy steine and Metamizole may falsely depress this assay.Serum Triglycerides Reference Interval Normal <150 mg/dL Borderline high 150 - 199 mg/dL High 200 - 499 mg/dL Very High > or = 500 mg/dL Very low density lipoprotein (VLDL) cholesterol measurementOrdered By: Breezy Alegria on 08-23-2024 Very low density lipoprotein (VLDL) cholesterol measurement 31 mg/dL 5-40 [facility] Vitamin D,25 Hydroxyon 08-23 Vitamin D 25-OH 62.8 ng/mL Normal [facility] Comment on above: Order Comment: Order Date: 05/23/24 Order Info: 0786-1 - CMP Order Info: [id number] - LIPID Order Info: 3015-09 - TSH Order Info: 3024-01 - T4F Result Comment: Kathy min D 25(OH) Status Range Deficiency <20 ng/mL (50nmol/L) Insufficiency 20 - 30 ng/mL (50 - 75 nmol/L) Sufficiency 30 - 100 ng/mL (75 - 250 nmol/L) Toxicity >100 ng/mL (>250 nmol/L) Performed By: #### L 500.4050 #### [facility] [address] [place], [place], [address] White blood cell (WBC) count Ordered By: Breezy Alegria on 08-23-2024 WBC (Bld) [#/Vol] 4.5 10*3/uL 4.4-11.0 [facility] SCRN MAMM (CAD)W/GATO BILATo n 06-29-2024 SCRN MAMM (CAD)W/GATO BILAT [facility] Imaging Services [address] [place] [address] SCRN MAMM (CAD)W/GATO BILAT MR#: [id number] Acct: [id number] Name: TIERRA MALCOLM Rep #: [id number] : 1975 F 49 From: Jerome walker MD PCP: Dr. Breezy Alegria MD Status: [facility] Study: SCRN MAMM (CAD)W/GATO BILAT Date of Exam: 06/12 03/05 Exam# [id number] Ordering Dr: Arlene Mcqueen NP PLASTERING SUPERVISOR -C [id number] MAMMOGRAPHY - BILATERAL SCREENING REASON FOR EXAM: [...] delay biopsy of a clinically suspicious abnormality. [id number] Electronically Signed: Jerome Fay MD at 9:35 EST Reading Location ID and State: [address] [place] [address] , Service support , CC: KANDY Mcqueen; Dr. Breezy Alegria MD Division Chief: Signed Normal [facility] Colonoscopy Reporton 024 Colonoscopy Report [facility] Medical Records Department [address] [place] [address] Colonoscopy Report MR#: [id number] Acct: [id number] Name: TIERRA MALCOLM Rep #: [id number] : 1975 49 From: Winsome Rangel MD PCP: Dr. Breezy Alegria MD Status:[facility] Patient Name: Tierra Malcolm Procedure Date: 06/13/2024 [...] K64.0, First degree hemorrhoids CPT copyright 2021 [employer]. All rights reserved. The codes documented in this report are preliminary and upon airport control operator review may be revised to meet current compliance requirements. MD Winsome Munoz MD 06/13/2024 8:47:44 AM This report has been signed electronically. Number of Addenda: 0 Note Initiated On: 06/13/2024 8:22 AM 06/13/24 0847 Date Winsome Hampton Signature: Date (if indicated) CC: Dr. Breezy Alegria MD; Dr. Winsome Rangel MD Date Dictated: 06/13/24821 Date Transcribed: Division Chief: TR Signed [facility] MR/POSTOP.ANEon 06-13-2024 MR/POSTOP.[facility] Medical Records Department [address] [place] [address] Anesthesia Postop Eval I 06/13/2449 MR#: [id number] Acct: [id number] Name: TIERRA MALCOLM Rep #: [id number] : 1975 49 From: Nikolas Abrams PCP: Dr. Breezy Alegria MD Status:REG [facility] [place] Race: C Location: [place] [address] Anesthesia: Postop Eval I Current Vital Signs [...] Eval 1 completed: Yes 06/13/24850 Date Nikolas Hampton Signature: Date CC: Signed [facility] MR/[id number] 06-13-2024 MR/POSTOPA[address] Medical Records Department [address] [place] [address] Anesthesia Postop Eval II 06/13/24923 MR#: [id number] Acct: [id number] Name: TIERRA MALCOLM Rep #: [id number] : 1975 49 From: Nestor Dubon MD PCP: Dr. Breezy Alegria MD Status:DEP [facility] [place] Y Race: C Location: [place] Anesthesia Postop [...] nausea: No Vomiting: No 06/13/24923 Date Nestor Dubon MD Cosigner Signature: Date CC: Signed Normal [facility] Vitamin D 1,25-Dihydroxyon 1 07-26-2023 VIT D 1,25 DIHY 67.7 pg/mL Normal 24.8-81.5 [facility] Comment on above: Order Comment: Order Date: 05/23/24 Order Info: 0786-1 - CMP Order Info: [id number] - LIPID Order Info: 3016-3 - TSH Order Info: 3024-7 - T4F Result Comment: Perf ormed at: [facility] [phone] Assurance Associate: Sarah Harmon MD, Phone: [phone] Performed By: #### L 500.4054 #### [facility] [address] [place], [address] CBC W/Diff, Automatedon 05-13 Absolute Lymph 1.59 X10 3/uL Normal 0.83-4.51 [facility] Comment on above: Order Comment: Order Date: 05/23/24 Order Info: 018- - CBCD Performed By: #### L 100.0100 #### [facility] [address] [place], [address] Absolute Neut 2.0 X10 3/uL Normal 2.0-7.7 [facility] Comment on above: Order Comment: Order Date: 05/23/24 Order Info: 018- - CBCD Performed By: #### L 100.0100 #### [facility] [address] [place], [address] Basophils/100 WBC (Bld) 0.8 % Normal 0-1 [facility] Comment on above: Order Comment: Order Date: 05/23/24 Order Info: 018- - CBCD Performed By: #### L 100.0100 #### [facility] [address] [place], [address] Eosinophils/100 WBC (Bld) 11.6 % High 0-5 [facility] Comment on above: Order Comment: Order Date: 05/23/24 Order Info: 018- - CBCD Performed By: #### L 100.0100 #### [facility] [address] [place], [address] Erythrocyte distribution width (RBC) [Ratio] 12.6 % Normal 11.6-14.6 [facility] Comment on above: Order Comment: Order Date: 05/23/24 Order Info: 0184- - CBCD Performed By: #### L 100.0100 #### [facility] [address] [place], [address] Hematocrit (Bld) [Volume fraction] 35.9 % Low 37-47 [facility] Comment on above: Order Comment: Order Date: 05/23/24 Order Info: 018- - CBCD Performed By: #### L 100.0100 #### [facility] [address] [place], [address] Hemoglobin (Bld) [Mass/Vol] 12.1 g/dL Normal 12.0-15.0 [facility] Comment on above: Order Comment: Order Date: 05/23/24 Order Info: 018- - CBCD Performed By: #### L 100.0100 #### [facility] [address] [place], [address] IG% 0.200 Normal 0.0-0.9 [facility] Comment on above: Order Comment: Order Date: 05/23/24 Order Info: 0184- - CBCD Result Comment: IG% - Immature Granulocytes (promyelocytes, myelocytes and metamyelocytes) > 1% indicates that a LEFT SHIFT is Present. Performed By: #### L 100.0100 #### [facility] [address] [place], [address] Lymphocytes/100 WBC (Bld) 33.6 % Normal 19-41 [facility] Comment on above: Order Comment: Order Date: 05/23/24 Order Info: 0184- - CBCD Performed By: #### L 100.0100 #### [facility] [address] [place], [address] MCH (RBC) [Entitic mass] 31.0 pg Normal 27.0-32.0 [facility] Comment on above: Order Comment: Order Date: 05/23/24 Order Info: 0184-1 - CBCD Performed By: #### L 100.0100 #### [facility] [address] [place], [address] MCHC (RBC) [Mass/Vol] 33.7 g/dL Normal 32-36 [facility] Comment on above: Order Comment: Order Date: 05/23/24 Order Info: 0184-1 - CBCD Performed By: #### L 100.0100 #### [facility] [address] [place], [address] MCV (RBC) [Entitic vol] 92.1 fL Normal 81-99 [facility] Comment on above: Order Comment: Order Date: 05/23/24 Order Info: 0184-1 - CBCD Performed By: #### L 100.0100 #### [facility] [address] [place], [address] Monocytes/100 WBC (Bld) 11.2 % High 0-10 [facility] Comment on above: Order Comment: Order Date: 05/23/24 Order Info: 0184-1 - CBCD Performed By: #### L 100.0100 #### [facility] [address] [place], [address] Neutrophils/100 WBC (Bld) 42.6 % Low 47-70 [facility] Comment on above: Order Comment: Order Date: 05/23/24 Order Info: 0184-1 - CBCD Performed By: #### L 100.0100 #### [facility] [address] [place], [address] Nucleated RBC (Bld) [#/Vol] 0 10*3/uL Normal 0-5 [facility] Comment on above: Order Comment: Order Date: 05/23/24 Order Info: 0184-1 - CBCD Performed By: #### L 100.0100 #### [facility] [address] [place], [address] Platelet mean volume (Bld) [Entitic vol] 10.9 fL Normal 6.2-12.0 [facility] Comment on above: Order Comment: Order Date: 05/23/24 Order Info: 0184-1 - CBCD Performed By: #### L 100.0100 #### [facility] [address] [place], [address] Platelets (Bld) [#/Vol] 254 10*3/uL Normal 150-450 [facility] Comment on above: Order Comment: Order Date: 05/23/24 Order Info: 0184-1 - CBCD Performed By: #### L 100.0100 #### [facility] [address] [place], [address] RBC (Bld) [#/Vol] 3.90 10*6/uL Low 4.2-5.4 [facility] Comment on above: Order Comment: Order Date: 05/23/24 Order Info: 018-1 - CBCD Performed By: #### L 100.0100 #### [facility] [address] [place], [address] RDW SD 42.2 fl Normal 35.1-43.9 [facility] Comment on above: Order Comment: Order Date: 05/23/24 Order Info: 0184-1 - CBCD Performed By: #### L 100.0100 #### [facility] [address] [place], [address] WBC (Bld) [#/Vol] 4.7 10*3/uL Normal 4.4-11.0 [facility] Comment on above: Order Comment: Order Date: 05/23/24 Order Info: 0184-1 - CBCD Performed By: #### L 100.0100 #### [facility] [address] [place], [address] Comprehensive Metabolic Prof ilon 05-24-2024 Albumin [Mass/Vol] 3.6 g/dL Normal 3.2-5.0 [facility] Comment on above: Order Comment: Order Date: 05/23/24 Order Info: 86-1 - CMP Order Info: [id number] - LIPID Order Info: 3016-3 - TSH Order Info: 3024-7 - T4F Performed By: #### L 500.4050 #### [facility] [address] [place], [address] Albumin/Globulin [Mass ratio] 1.2 {ratio} Normal 0.9-2.4 [facility] Comment on above: Order Comment: Order Date: 05/23/24 Order Info: 86-1 - CMP Order Info: [id number] - LIPID Order Info: 3016-3 - TSH Order Info: 3024-7 - T4F Performed By: #### L 500.4050 #### [facility] [address] [place], [address] ALK P 70 U/L Normal 45-117 [facility] Comment on above: Order Comment: Order Date: 05/23/24 Order Info: 785-1 - CMP Order Info: 77734-9 - LIPID Order Info: 3016-3 - TSH Order Info: 3024-7 - T4F Performed By: #### L 500.4050 #### [facility] [address] [place], [address] ALT [Catalytic activity/Vol] 26 U/L Normal 13-56 [facility] Comment on above: Order Comment: Order Date: 05/23/24 Order Info: 86-1 - CMP Order Info: 95045-2 - LIPID Order Info: 3016-3 - TSH Order Info: 3024-7 - T4F Performed By: #### L 500.4050 #### [facility] [address] [place], [address] AST [Catalytic activity/Vol] 12 U/L Low 15-37 [facility] Comment on above: Order Comment: Order Date: 05/23/24 Order Info: 86-1 - CMP Order Info: [id number] - LIPID Order Info: 3016-3 - TSH Order Info: 3024-7 - T4F Performed By: #### L 500.4050 #### [facility] [address] [place], [address] Bilirubin [Mass/Vol] 0.40 mg/dL Normal 0.20-1.00 [facility] Comment on above: Order Comment: Order Date: 05/23/24 Order Info: 86-1 - CMP Order Info: 17782-1 - LIPID Order Info: 3016-3 - TSH Order Info: 3024-7 - T4F Result Comment: For patients on eltrombopag therapy, use of Dimension Lena TBIL is not recommended. Performed By: #### L 500.4050 #### [facility] [address] [place], [address] BUN/CRE 16.3 RATIO Normal 10-20 [facility] Comment on above: Order Comment: Order Date: 05/23/24 Order Info: 86-1 - CMP Order Info: 40765-9 - LIPID Order Info: 63 - TSH Order Info: 7 - T4F Performed By: #### L 500.4050 #### [facility] [address] [place], [address] CA,Total 8.7 mg/dL Normal 8.5-10.1 [facility] Comment on above: Order Comment: Order Date: 05/23/24 Order Info: 86-1 - CMP Order Info: [id number] - LIPID Order Info: 3016-3 - TSH Order Info: 3024-7 - T4F Performed By: #### L 500.4050 #### [facility] [address] [place], [address] Chloride [Moles/Vol] 110 mmol/L High 98-107 [facility] Comment on above: Order Comment: Order Date: 05/23/24 Order Info: 86-1 - CMP Order Info: [id number] - LIPID Order Info: 3016-3 - TSH Order Info: 3024-7 - T4F Performed By: #### L 500.4050 #### [facility] [address] [place], [place], [address] CO2 [Moles/Vol] 24.0 mmol/L Normal 21.0-32.0 [facility] Comment on above: Order Comment: Order Date: 05/23/24 Order Info: 86-1 - CMP Order Info: [id number] - LIPID Order Info: 3 - TSH Order Info: 7 - T4F Performed By: #### L 500.4050 #### [facility] [address] [place], [place], [address] Creatinine [Mass/Vol] 0.62 mg/dL Normal 0.55-1.02 [facility] Comment on above: Order Comment: Order Date: 05/23/24 Order Info: 785- - CMP Order Info: [id number] - LIPID Order Info: 3 - TSH Order Info: 7 - T4F Result Comment: The validity of the calculated GFR GFRAA in patients over 70 years has not been determined. Clinical correlation is essential. Performed By: #### L 500.4050 #### [facility] [address] [place], [place], [address] EST GFR - AA 133 mL/min Normal >60 [facility] Comment on above: Order Comment: Order Date: 05/23/24 Order Info: 785- - CMP Order Info: 53587-1 - LIPID Order Info: 3 - TSH Order Info: 302-7 - T4F Result Comment: Afri can [place] GFR Calc Performed By: #### L 500.4050 #### [facility] [address] [place], [place], [address] GAP 5 Normal 5-15 [facility] Comment on above: Order Comment: Order Date: 05/23/24 Order Info: 785-1 - CMP Order Info: [id number] - LIPID Order Info: 3 - TSH Order Info: 7 - T4F Performed By: #### L 500.4050 #### [facility] [address] [place], [place], [address] GFR/1.73 sq M.predicted among non-blacks MDRD (S/P/Bld) [Vol rate/Area] 110 mL/min/{1.73_m2} Normal >60 [facility] Comment on above: Order Comment: Order Date: 05/23/24 Order Info: 0786-1 - CMP Order Info: [id number] - LIPID Order Info: 3016-3 - TSH Order Info: 3024-7 - T4F Result Comment: Non- GFR Calc Performed By: #### L 500.4050 #### [facility] [address] [place], [place], [address] Globulin (S) [Mass/Vol] 3.1 g/dL Normal 2.2-4.2 [facility] Comment on above: Order Comment: Order Date: 05/23/24 Order Info: 07- - CMP Order Info: [id number] - LIPID Order Info: 3016-3 - TSH Order Info: 3024-7 - T4F Performed By: #### L 500.4050 #### [facility] [address] [place], [address] Glucose [Mass/Vol] 102 mg/dL Normal 74-106 [facility] Comment on above: Order Comment: Order Date: 05/23/24 Order Info: 0786-1 - CMP Order Info: [id number] - LIPID Order Info: 3016-3 - TSH Order Info: 3024-7 - T4F Result Comment: Fast ing Glucose result from 100 to 125 mg/dL suggests IMPAIRED HOMEOSTASIS per A.D.A. criteria. Performed By: #### L 500.4050 #### [facility] [address] [place], [place], [address] Potassium [Moles/Vol] 4.1 mmol/L Normal 3.5-5.1 [facility] Comment on above: Order Comment: Order Date: 05/23/24 Order Info: 86-1 - CMP Order Info: 11973-8 - LIPID Order Info: 3016-3 - TSH Order Info: 3024-7 - T4F Performed By: #### L 500.4050 #### [facility] [address] [place], [place], [address] Sodium [Moles/Vol] 139 mmol/L Normal 136-145 [facility] Comment on above: Order Comment: Order Date: 05/23/24 Order Info: 86-1 - CMP Order Info: [id number] - LIPID Order Info: 3016-3 - TSH Order Info: 3024-7 - T4F Performed By: #### L 500.4050 #### [facility] [address] [place], [place], [address] T PROT 6.7 g/dL Normal 6.4-8.2 [facility] Comment on above: Order Comment: Order Date: 05/23/24 Order Info: 785-1 - CMP Order Info: 70724-0 - LIPID Order Info: 3016-3 - TSH Order Info: 3024-7 - T4F Performed By: #### L 500.4050 #### [facility] [address] [place], [place], [address] Urea nitrogen [Mass/Vol] 10 mg/dL Normal 7-18 [facility] Comment on above: Order Comment: Order Date: 05/23/24 Order Info: 785-1 - CMP Order Info: [id number] - LIPID Order Info: 3016-3 - TSH Order Info: 3024-7 - T4F Performed By: #### L 500.4050 #### [facility] [address] [place], [place], [address] Lipid Profileon 05-24-2024 Cholesterol [Mass/Vol] 140 mg/dL Normal 200 [facility] Comment on above: Order Comment: Order Date: 05/23/24 Order Info: 0184-1 - CBCD Result Comment: <200 mg/dL Desirable 200-240 mg/dL Borderline >240 mg/dL High Risk Performed By: #### L 100.0100 #### [facility] [address] [place], [address] Cholesterol in HDL [Mass/Vol] 44 mg/dL Normal [facility] Comment on above: Order Comment: Order Date: 05/23/24 Order Info: 0184-1 - CBCD Result Comment: The drugs N-Acetylcysteine and Metamizole may falsely depress this assay. Reference Range HDL <40 mg/dL Low HDL Cholesterol HDL >or= 60 mg/dL High HDL Cholesterol Performed By: #### L 100.0100 #### [facility] [address] [place], [address] Cholesterol in LDL [Mass/Vol] 49 mg/dL Normal 0-130 [facility] Comment on above: Order Comment: Order Date: 05/23/24 Order Info: 0184-1 - CBCD Performed By: #### L 100.0100 #### [facility] [address] [place], [address] Cholesterol in VLDL [Mass/Vol] 47 mg/dL High 5-40 [facility] Comment on above: Order Comment: Order Date: 05/23/24 Order Info: 0184-1 - CBCD Performed By: #### L 100.0100 #### [facility] [address] [place], [address] Triglyceride [Mass/Vol] 233 mg/dL High [facility] Comment on above: Order Comment: Order Date: 05/23/24 Order Info: 0184-1 - CBCD Result Comment: The drugs N-Acetylcysteine and Metamizole may falsely depress this assay. Serum Triglycerides Reference Interval Normal <150 mg/dL Borderline high 150 - 199 mg/dL High 200 - 499 mg/dL Very High > or = 500 mg/dL Performed By: #### L 100.0100 #### [facility] [address] [place], [address] T4 Free Directon 05-24-2024 T4 FREE DIRECT 0.76 ng/dL Normal 0.76-1.46 [facility] Comment on above: Order Comment: Order Date: 05/23/24 Order Info: 0786-1 - CMP Order Info: [id number] - LIPID Order Info: 3015-09 - TSH Order Info: 3024-01 - T4F Performed By: #### L 500.4050 #### [facility] [address] [place], [place], [address] Thyroid Stim Hormone (TSH)on 05-24-2024 TSH 1.940 uIU/mL Normal 0.358-3.740 [facility] Comment on above: Order Comment: Order Date: 05/23/24Order Info: 0786-1 - CMPOrder Info: [id number] - LIPIDOrder Info: 3015-09 - TSHOrder Info: 3024-01 - T4F Performed By: #### L 501.9520 ####[facility] [address] [place], [place], [address] Absolute lymphocyte countOrd ered By: Breezy Alegria on 11-04-2023 Lymphocytes Auto (Unsp spec) [#/Vol] 2.21 10*3/uL 0.83-4.51 [facility] Automated lymphocyte count a s percentage of total leukocytesOrdered By: Breezy Alegria on 11-04-2023 Lymphocytes/100 WBC Auto (Unsp spec) 31.4 % 19-41 [facility] Basophil percentageOrdered B y: Breezy Alegria on 11-04-2023 Basophils/100 WBC (Bld) 1.0 % 0-1 [facility] Eosinophils/100 WBC (Bld) 2.7 % 0-5 [facility] Hemoglobin (Bld) [Mass/Vol] 12.5 g/dL 12.0-15.0 [facility] Monocytes/100 WBC (Bld) 10.0 % 0-10 [facility] Neutrophils (Bld) [#/Vol] 3.8 10*3/uL 2.0-7.7 [facility] Neutrophils/100 WBC (Bld) 54.6 % 47-70 [facility] WBC (Bld) [#/Vol] 7.0 10*3/uL 4.4-11.0 [facility] Determination of erythrocyte mean corpuscular volume (MCV)Ordered By: Breezy Alegria on 11-04-2023 MCV (RBC) [Entitic vol] 93.5 fL 81-99 [facility] Erythrocyte distribution wid th ratioOrdered By: Breezy Alegria on 11-04-2023 Erythrocyte distribution width (RBC) [Ratio] 12.4 % 11.6-14.6 [facility] Erythrocyte distribution wid th standard deviationOrdered By: Breezy Alegria on 11-04-2023 Erythrocyte distribution width (RBC) [Entitic vol] 42.5 fL 35.1-43.9 [facility] Hematocrit Auto (Bld) [Volum e fraction]Ordered By: Breezy Alegria on 11-04-2023 Hematocrit (Bld) [Volume fraction] 37.1 % 37-47 [facility] Immature granulocytes/100 WB C Auto (Bld)Ordered By: Breezy Alegria on 11-04-2023 Immature granulocytes/100 WBC (Bld) 0.300 % 0.0-0.9 [facility] Comment on above: IG% - Immature Granu locytes (promyelocytes, myelocytes and metamyelocytes) > 1% indicates that a LEFT SHIFT is Present. Laboratory - Hematology and Cell countsOrdered By: Breezy Alegria on 11-04-2023 MCH (RBC) [Entitic mass] 31.5 pg 27.0-32.0 [facility] MCHC (RBC) [Mass/Vol] 33.7 g/dL 32-36 [facility] Nucleated RBC/100 WBC (Bld) [Ratio] 0 % 0-5 [facility] Platelet mean volume (Bld) [Entitic vol] 10.5 fL 6.2-12.0 [facility] Platelets (Bld) [#/Vol] 301 10*3/uL 150-450 [facility] No Panel InformationOrdered By: Arlene Mcqueen on 11-04-2023 Estradiol (E2) Level 261.4 pg/mL [facility] Comment on above: NORMAL REFERENCE RAN [...] ESTRADIOL CONCENTRATION. Follicle Stimulating Hormone 2.0 mIU/mL [facility] Comment on above: NORMAL REFERENCE RAN GES FEMALE FOLLICULAR 2.3 - 12.6 mIU/mL MID-CYCLE PEAK 5.2 - 17.5 mIU/mL LUTEAL 1.7 - 12.9 mIU/mL POST-MENOPAUSAL ON MHT 5.9 - 72.8 mIU/mL NOT ON MHT 12.7 - 132.2 mlU/mL MALE 0.7 - 10.8 mIU/mL Vitamin D 25-Hydroxy 57.4 ng/mL [facility] Comment on above: Vitamin D 25(OH) Sta tus Range Deficiency <20 ng/mL (50nmol/L) Insufficiency 20 - 30 ng/mL (50 - 75 nmol/L) Sufficiency 30 - 100 ng/mL (75 - 250 nmol/L) Toxicity >100 ng/mL (>250 nmol/L) RBC Auto (Bld) [#/Vol]Ordere d By: Breezy Alegria on 11-04-2023 RBC (Bld) [#/Vol] 3.97 10*6/uL 4.2-5.4 [facility] Serum or plasma thyroid stim ulating hormone (TSH) measurement (units/volume)Ordered By: Arlene Mcqueen on 11-04-2023 TSH Qn 6.78 uIU/mL 0.358-3.74 [facility] Serum or plasma thyroperoxid ase antibody assay (units/volume)Ordered By: Arlene Mcqueen on 11-04-2023 TPO Ab Qn [IU]/mL 0-34 [facility] Comment on above: Performed at: [address] [id number] Director: Jose Miguel Grimm PhD, Phone: [phone] Thin prep Papanicolaou smear with manual screeningOrdered By: Arlene Mcqueen on 11-04-2023 Thin prep Papanicolaou smear with manual screening 0.77 ng/dL 0.76-1.46 [facility] Absolute lymphocyte countOrd ered By: Breezy Raji on 10-23-2023 Lymphocytes Auto (Unsp spec) [#/Vol] 1.66 10*3/uL 0.83-4.51 [facility] Automated lymphocyte count a s percentage of total leukocytesOrdered By: Breezy Alegria on 10-23-2023 Lymphocytes/100 WBC Auto (Unsp spec) 25.4 % 19-41 [facility] Basophil percentageOrdered B y: Breezy Alegria on 10-23-2023 Basophils/100 WBC (Bld) 0.8 % 0-1 [facility] Bilirubin [Mass/Vol] 0.40 mg/dL 0.20-1.00 [facility] Comment on above: For patients on eltr ombopag therapy, use of Dimension Lena TBIL is not recommended. Chloride [Moles/Vol] 111 mmol/L 98-107 [facility] Cholesterol [Mass/Vol] 164 mg/dL <200 [facility] Comment on above: <200 mg/dL Desirable 200-240 mg/dL Borderline >240 mg/dL High Risk Eosinophils/100 WBC (Bld) 2.1 % 0-5 [facility] Glucose [Mass/Vol] 101 mg/dL 74-106 [facility] Comment on above: Fasting Glucose resu lt from 100 to 125 mg/dL suggests IMPAIRED HOMEOSTASIS per A.D.A. criteria. Hemoglobin (Bld) [Mass/Vol] 12.4 g/dL 12.0-15.0 [facility] Monocytes/100 WBC (Bld) 6.4 % 0-10 [facility] Neutrophils (Bld) [#/Vol] 4.2 10*3/uL 2.0-7.7 [facility] Neutrophils/100 WBC (Bld) 65.0 % 47-70 [facility] Potassium [Moles/Vol] 4.0 mmol/L 3.5-5.1 [facility] Protein [Mass/Vol] 7.2 g/dL 6.4-8.2 [facility] Sodium [Moles/Vol] 140 mmol/L 136-145 [facility] Triglyceride [Mass/Vol] 127 mg/dL <199 [facility] Comment on above: The drugs N-Acetylcy steine and Metamizole may falsely depress this assay.Serum Triglycerides Reference Interval Normal <150 mg/dL Borderline high 150 - 199 mg/dL High 200 - 499 mg/dL Very High > or = 500 mg/dL WBC (Bld) [#/Vol] 6.5 10*3/uL 4.4-11.0 [facility] Determination of erythrocyte mean corpuscular volume (MCV)Ordered By: Breezy Alegria on 10-23-2023 MCV (RBC) [Entitic vol] 94.9 fL 81-99 [facility] Erythrocyte distribution wid th ratioOrdered By: Breezy Alegria on 10-23-2023 Erythrocyte distribution width (RBC) [Ratio] 12.7 % 11.6-14.6 [facility] Erythrocyte distribution wid th standard deviationOrdered By: Breezy Alegria on 10-23-2023 Erythrocyte distribution width (RBC) [Entitic vol] 44.7 fL 35.1-43.9 [facility] Hematocrit Auto (Bld) [Volum e fraction]Ordered By: Breezy Alegria on 10-23-2023 Hematocrit (Bld) [Volume fraction] 37.3 % 37-47 [facility] Immature granulocytes/100 WB C Auto (Bld)Ordered By: Breezy Alegria on 10-23-2023 Immature granulocytes/100 WBC (Bld) 0.300 % 0.0-0.9 [facility] Comment on above: IG% - Immature Granu locytes (promyelocytes, myelocytes and metamyelocytes) > 1% indicates that a LEFT SHIFT is Present. Laboratory - Chemistry and C hemistry - challengeOrdered By: Breezy Alegria on 10-23-2023 Albumin/Globulin [Mass ratio] 1.2 {ratio} 0.9-2.4 [facility] ALP [Catalytic activity/Vol] 63 U/L 45-117 [facility] ALT [Catalytic activity/Vol] 36 U/L 13-56 [facility] Cholesterol in HDL [Mass/Vol] 58 mg/dL >40 [facility] Comment on above: The drugs N-Acetylcy steine and Metamizole may falsely depress this assay. Reference Range HDL <40 mg/dL Low HDL Cholesterol HDL >or= 60 mg/dL High HDL Cholesterol Cholesterol in LDL [Mass/Vol] 81 mg/dL 0-130 [facility] CO2 [Moles/Vol] 27.0 mmol/L 21.0-32.0 [facility] Globulin (S) [Mass/Vol] 3.2 g/dL 2.2-4.2 [facility] Urea nitrogen/Creatinine [Mass ratio] 22.3 mg/mg 10-20 [facility] Laboratory - Hematology and Cell countsOrdered By: Breezy Alergia on 10-23-2023 MCH (RBC) [Entitic mass] 31.6 pg 27.0-32.0 [facility] MCHC (RBC) [Mass/Vol] 33.2 g/dL 32-36 [facility] Nucleated RBC/100 WBC (Bld) [Ratio] 0 % 0-5 [facility] Platelet mean volume (Bld) [Entitic vol] 10.5 fL 6.2-12.0 [facility] Platelets (Bld) [#/Vol] 314 10*3/uL 150-450 [facility] No Panel InformationOrdered By: Breezy Alegria on 10-23-2023 Estimated GFR (MDRD) Amer 105 mL/min >60 [facility] Comment on above: GFR Calc Estimated GFR (MDRD) Non-Af Amer 86 mL/min >60 [facility] Comment on above: Non- GFR Calc Vitamin D 25-Hydroxy 54.0 ng/mL [facility] Comment on above: Vitamin D 25(OH) Sta tus Range Deficiency <20 ng/mL (50nmol/L) Insufficiency 20 - 30 ng/mL (50 - 75 nmol/L) Sufficiency 30 - 100 ng/mL (75 - 250 nmol/L) Toxicity >100 ng/mL (>250 nmol/L) VLDL Cholesterol 25 mg/dL 5-40 [facility] RBC Auto (Bld) [#/Vol]Ordere d By: Breezy Alegria on 10-23-2023 RBC (Bld) [#/Vol] 3.93 10*6/uL 4.2-5.4 [facility] Serum or plasma calcium new urement (mass/volume)Ordered By: Breezy Alegria on 10-23-2023 Calcium [Mass/Vol] 9.3 mg/dL 8.5-10.1 [facility] Serum or plasma creatinine m easurement (mass/volume)Ordered By: Breezy Alegria on 10-23-2023 Creatinine [Mass/Vol] 0.76 mg/dL 0.55-1.02 [facility] Comment on above: The validity of the calculated GFR & GFRAA in patients over 70 years has not been determined. Clinical correlation is essential. Serum or plasma urea nitroge n measurement (mass/volume)Ordered By: Breezy Alegria on 10-23-2023 Urea nitrogen [Mass/Vol] 17 mg/dL 7-18 [facility] Thin prep Papanicolaou smear with manual screeningOrdered By: Breezy Alegria on 10-23-2023 Thin prep Papanicolaou smear with manual screening 4.0 g/dL 3.2-5.0 [facility] Thin prep Papanicolaou smear with manual screening 25 U/L 15-37 [facility] Thin prep Papanicolaou smear with manual screening 2 5-15 [facility] Cervical or vaginal specimen microscopic examination by liquid based cytology (reportOrdered By: Arlene Mcqueen on 09-02-2023 Cytology report Cyto stain.thin prep Doc (Cvx/Vag) Comment . [facility] Comment on above: Criteria not met, HP V Genotype not performed.Performed at: - [address] [id number] Director: Mary Ann Rashid MD, Phone: [phone] at: = - [facility] [id number] Director: Mary Ann Rashid MD, Phone: [phone] Cervical or vagninal specime n microscopic examination by cytology stain (reported asOrdered By: Arlene Mcqueen on 09-02-2023 Cytology report Cyto stain Doc (Cvx/Vag) Comment . [facility] Comment on above: The Pap [...] DNA Probe+sig amp Ql (Cvx) Negative Negative [facility] Comment on above: This nucleic acid am plification test detects fourteen high-risk HPV types (16,18,31,33,35,39,45,51,52,56,58,59,66,68)without differentiation. Laboratory - CytologyOrdered By: Arlene Mcqueen on 09-02-2023 Manager Installation Cyto stain Nom (Cvx/Vag) [ID] Comment . [facility] Comment on above: Neelam Cárdenas Cyto technologist Laboratory - Miscellaneous t estsOrdered By: Arlene Mcqueen on 09-02-2023 Service comment (Unsp spec) [Interp] . . [facility] Thin prep Papanicolaou smear with manual screeningOrdered By: Arleneraisa Mcqueen on 09-02-2023 Thin prep Papanicolaou smear with manual screening Comment . [facility] Comment on above: NEGATIVE FOR INTRAEP ITHELIAL LESION OR MALIGNANCY.CELLULAR CHANGES ASSOCIATED WITH INFLAMMATION ARE PRESENT.THIS SPECIMEN WAS RESCREENED PART OF OUR SYSTEMS COORDINATOR PROGRAM. This liquid based Th inPrep(R) pap test was screened withthe use of an image guided system. Basophil percentageOrdered B y: John Ennis on 06-10-2023 Chloride [Moles/Vol] 108 mmol/L 98-107 [facility] Glucose [Mass/Vol] 158 mg/dL 74-106 [facility] Comment on above: Fasting Glucose resu lt greater than or equal to 126 mg/dL suggests DIABETES MELLITUS per A.D.A. criteria. Potassium [Moles/Vol] 3.8 mmol/L 3.5-5.1 [facility] Sodium [Moles/Vol] 138 mmol/L 136-145 [facility] WBC (Bld) [#/Vol] 11.6 10*3/uL 4.4-11.0 [facility] Blood erythrocytes count (nu mber/volume)Ordered By: John Ennis on 06-10-2023 RBC (Bld) [#/Vol] 3.55 10*6/uL 4.2-5.4 [facility] Blood hemoglobin measurement (mass/volume)Ordered By: John Ennis on 06-10-2023 Hemoglobin (Bld) [Mass/Vol] 11.4 g/dL 12.0-15.0 [facility] Blood platelet mean volumeOr dered By: John Ennis on 06-10-2023 Platelet mean volume (Bld) [Entitic vol] 9.9 fL 6.2-12.0 [facility] Determination of erythrocyte mean corpuscular volume (MCV)Ordered By: John Ennis on 06-10-2023 MCV (RBC) [Entitic vol] 96.1 fL 81-99 [facility] Hematocrit Auto (Bld) [Volum e fraction]Ordered By: John Ennis on 06-10-2023 Hematocrit (Bld) [Volume fraction] 34.1 % 37-47 [facility] Laboratory - Chemistry and C hemistry - challengeOrdered By: John Ennis on 06-10-2023 CO2 [Moles/Vol] 24.0 mmol/L 21.0-32.0 [facility] Urea nitrogen/Creatinine [Mass ratio] 7.7 mg/mg 10-20 [facility] Laboratory - Hematology and Cell countsOrdered By: John Ennis on 06-10-2023 Erythrocyte distribution width (RBC) [Entitic vol] 48.7 fL 35.1-43.9 [facility] Erythrocyte distribution width (RBC) [Ratio] 13.7 % 11.6-14.6 [facility] MCH (RBC) [Entitic mass] 32.1 pg 27.0-32.0 [facility] MCHC Auto (RBC) [Mass/Vol]Or dered By: John Ennis on 06-10-2023 MCHC (RBC) [Mass/Vol] 33.4 g/dL 32-36 [facility] No Panel InformationOrdered By: John Ennis on 06-10-2023 Estimated Creatinine Clearance Calc 63.92 ml/min [facility] Estimated GFR (MDRD) Amer 86 mL/min >60 [facility] Comment on above: GFR Calc Estimated GFR (MDRD) Non-Af Amer 71 mL/min >60 [facility] Comment on above: Non- GFR Calc Platelets bldOrdered By: Antonia fosternder Loli on 06-10-2023 Platelets (Bld) [#/Vol] 316 10*3/uL 150-450 [facility] Serum or plasma calcium new urement (mass/volume)Ordered By: John Ennis on 06-10-2023 Calcium [Mass/Vol] 8.5 mg/dL 8.5-10.1 [facility] Serum or plasma creatinine m easurement (mass/volume)Ordered By: John Ennis on 06-10-2023 Creatinine [Mass/Vol] 0.90 mg/dL 0.55-1.02 [facility] Comment on above: The validity of the calculated GFR & GFRAA in patients over 70 years has not been determined. Clinical correlation is essential. Serum or plasma urea nitroge n measurement (mass/volume)Ordered By: John Ennis on 06-10-2023 Urea nitrogen [Mass/Vol] 7 mg/dL 7-18 [facility] Thin prep Papanicolaou smear with manual screeningOrdered By: John Ennis on 06-10-2023 Thin prep Papanicolaou smear with manual screening 6 5-15 [facility] Glucose Glucometer (dC) [M ass/Vol]Ordered By: Gerardo Guthrie on 06-09-2023 Glucose [Mass/Vol] 87 mg/dL 74-106 [facility] Comment on above: MANAGEMENT OF PATIEN T CARE PER NURSING PROTOCOL Absolute lymphocyte countOrd ered By: Gerardo Guthrie on 05-29-2023 Lymphocytes Auto (Unsp spec) [#/Vol] 1.61 10*3/uL 0.83-4.51 [facility] Basophil percentageOrdered B y: Gerardo Guthrie on 05-29-2023 Basophils/100 WBC (Bld) 0.5 % 0-1 [facility] Eosinophils/100 WBC (Bld) 3.6 % 0-5 [facility] Neutrophils (Bld) [#/Vol] 3.3 10*3/uL 2.0-7.7 [facility] Neutrophils/100 WBC (Bld) 59.2 % 47-70 [facility] Blood lymphocytes/100 leukoc ytesOrdered By: Gerardo Guthrie on 05-29-2023 Lymphocytes/100 WBC (Bld) 28.7 % 19-41 [facility] Blood monocytes/100 leukocyt esOrdered By: Gerardo Guthrie on 05-29-2023 Monocytes/100 WBC (Bld) 7.8 % 0-10 [facility] HIV 1 and HIV-2 antibody ass ay with HIV-1 p24 antigen detectionOrdered By: Gerardo Guthrie on 05-29-2023 HIV 1+2 Ab+HIV1 p24 Ag IA Ql Non-Reactive Nonreactive [facility] Laboratory - Chemistry and C hemistry - challengeOrdered By: Gerardo Guthrie on 05-29-2023 Magnesium [Mass/Vol] 2.2 mg/dL 1.6-2.6 [facility] Laboratory - Hematology and Cell countsOrdered By: Gerardo Guthrie on 05-29-2023 Immature granulocytes/100 WBC (Bld) 0.200 % 0.0-0.9 [facility] Comment on above: IG% - Immature Granu locytes (promyelocytes, myelocytes and metamyelocytes) > 1% indicates that a LEFT SHIFT is Present. Nucleated RBC/100 WBC (Bld) [Ratio] 0 % 0-5 [facility] No Panel InformationOrdered By: Gerardo Guthrie on 05-29-2023 Hepatitis A Antibody Total Positive Negative [facility] Comment on above: Comment: The [...] HAVtotal antibody results to IgM (e.g., panel #[id number] HAVAntibody w/ Rfx).Performed at: [address] [id number] Director: Jose Miguel Grimm PhD, Phone: [phone] Hepatitis C Antibody Non-Reactive Nonreactive [facility] Comment on above: Non Reactive: < 0.8 Equivocal: >/= 0.8 to < 1.0 Reactive: >/= 1.0The CDC recommends that a reactive/equivocal HCV antibody result be followed up by the HCV Nucleic Acid Amplificationtest (812164) Nasal Screen MRSA/MSSA [facility] Serum hepatitis B virus surf peri antibody IgG detectionOrdered By: Gerardo Guthrie on 05-29-2023 HBV surface IgG Ql (S) Reactive [facility] Comment on above: Non Reactive: Incons istent with immunity less than <10 mIU/mL Reactive: Consistent with immunity greater than or equal to 10 mIU/mL Basophil percentageOrdered B y: Breezy Alegria on 01-23-2023 Chloride [Moles/Vol] 106 mmol/L 98-107 [facility] Cholesterol [Mass/Vol] 145 mg/dL <200 [facility] Comment on above: <200 mg/dL Desirable 200-240 mg/dL Borderline >240 mg/dL High Risk Glucose [Mass/Vol] 103 mg/dL 74-106 [facility] Comment on above: Fasting Glucose resu lt from 100 to 125 mg/dL suggests IMPAIRED HOMEOSTASIS per A.D.A. criteria. Potassium [Moles/Vol] 4.2 mmol/L 3.5-5.1 [facility] Sodium [Moles/Vol] 138 mmol/L 136-145 [facility] Triglyceride [Mass/Vol] 264 mg/dL <199 [facility] Comment on above: The drugs N-Acetylcy steine and Metamizole may falsely depress this assay.Serum Triglycerides Reference Interval Normal <150 mg/dL Borderline high 150 - 199 mg/dL High 200 - 499 mg/dL Very High > or = 500 mg/dL Direct bilirubinOrdered By: Breezy Alegria on 01-23-2023 Bilirubin.direct [Mass/Vol] 0.17 mg/dL 0.00-0.30 [facility] Laboratory - Chemistry and C hemistry - challengeOrdered By: Breezy Aelgria on 01-23-2023 CO2 [Moles/Vol] 24.0 mmol/L 21.0-32.0 [facility] Urea nitrogen/Creatinine [Mass ratio] 18.2 mg/mg 10-20 [facility] No Panel InformationOrdered By: Breezy Alegria on 01-23-2023 Estimated GFR (MDRD) Amer 124 mL/min >60 [facility] Comment on above: GFR Calc Estimated GFR (MDRD) Non-Af Amer 102 mL/min >60 [facility] Comment on above: Non- GFR Calc Vitamin D 25-Hydroxy 45.9 ng/mL [facility] Comment on above: Vitamin D 25(OH) Sta tus Range Deficiency <20 ng/mL (50nmol/L) Insufficiency 20 - 30 ng/mL (50 - 75 nmol/L) Sufficiency 30 - 100 ng/mL (75 - 250 nmol/L) Toxicity >100 ng/mL (>250 nmol/L) Serum or plasma calcium new urement (mass/volume)Ordered By: Breezy Alegria on 01-23-2023 Calcium [Mass/Vol] 8.7 mg/dL 8.5-10.1 [facility] Serum or plasma cholesterol in HDL measurement (mass/volume)Ordered By: Breezy Alegria on 01-23-2023 Cholesterol in HDL [Mass/Vol] 34 mg/dL >40 [facility] Comment on above: The drugs N-Acetylcy steine and Metamizole may falsely depress this assay. Reference Range HDL <40 mg/dL Low HDL Cholesterol HDL >or= 60 mg/dL High HDL Cholesterol Serum or plasma cholesterol in VLDL measurement (mass/volume)Ordered By: Breezy Alegria on 01-23-2023 Cholesterol in VLDL [Mass/Vol] 53 mg/dL 5-40 [facility] Serum or plasma creatinine m easurement (mass/volume)Ordered By: Breezy Alegria on 01-23-2023 Creatinine [Mass/Vol] 0.66 mg/dL 0.55-1.02 [facility] Comment on above: The validity of the calculated GFR & GFRAA in patients over 70 years has not been determined. Clinical correlation is essential. Serum or plasma low density lipoprotein (LDL) cholesterol measurement (mass/volume)Ordered By: Breezy Alegria on 01-23-2023 Cholesterol in LDL [Mass/Vol] 58 mg/dL 0-130 [facility] Serum or plasma urea nitroge n measurement (mass/volume)Ordered By: Breezy Alegria on 01-23-2023 Urea nitrogen [Mass/Vol] 12 mg/dL 7-18 [facility] Thin prep Papanicolaou smear with manual screeningOrdered By: Breezy Alegria on 01-23-2023 Thin prep Papanicolaou smear with manual screening 8 5-15 [facility] Absolute lymphocyte countOrd ered By: EMANUEL IVAN on 01-21-2023 Lymphocytes Auto (Unsp spec) [#/Vol] 0.98 10*3/uL 0.83-4.51 [facility] Basophil percentageOrdered B y: EMANUEL IVAN on 01-21-2023 Basophils/100 WBC (Bld) 1.0 % 0-1 [facility] Bilirubin [Mass/Vol] 0.60 mg/dL 0.20-1.00 [facility] Comment on above: For patients on eltr ombopag therapy, use of Dimension Lena TBIL is not recommended. Eosinophils/100 WBC (Bld) 2.3 % 0-5 [facility] Neutrophils (Bld) [#/Vol] 1.4 10*3/uL 2.0-7.7 [facility] Neutrophils/100 WBC (Bld) 47.1 % 47-70 [facility] Protein [Mass/Vol] 6.7 g/dL 6.4-8.2 [facility] WBC (Bld) [#/Vol] 3.0 10*3/uL 4.4-11.0 [facility] Blood erythrocytes count (nu mber/volume)Ordered By: EMANUEL IVAN on 01-21-2023 RBC (Bld) [#/Vol] 3.70 10*6/uL 4.2-5.4 [facility] Blood hemoglobin measurement (mass/volume)Ordered By: EMANUEL IVAN on 01-21-2023 Hemoglobin (Bld) [Mass/Vol] 11.8 g/dL 12.0-15.0 [facility] Blood lymphocytes/100 leukoc ytesOrdered By: EMANUEL IVAN on 01-21-2023 Lymphocytes/100 WBC (Bld) 32.9 % 19-41 [facility] Blood monocytes/100 leukocyt esOrdered By: EMANUEL IVAN on 01-21-2023 Monocytes/100 WBC (Bld) 16.4 % 0-10 [facility] Blood platelet mean volumeOr dered By: EMANUEL IVAN on 01-21-2023 Platelet mean volume (Bld) [Entitic vol] 10.6 fL 6.2-12.0 [facility] Determination of erythrocyte mean corpuscular volume (MCV)Ordered By: EMANUEL IVAN on 01-21-2023 MCV (RBC) [Entitic vol] 94.9 fL 81-99 [facility] Direct bilirubinOrdered By: EMANUEL IVAN on 01-21-2023 Bilirubin.direct [Mass/Vol] 0.16 mg/dL 0.00-0.30 [facility] Hematocrit Auto (Bld) [Volum e fraction]Ordered By: EMANUEL IVAN on 01-21-2023 Hematocrit (Bld) [Volume fraction] 35.1 % 37-47 [facility] Laboratory - Chemistry and C hemistry - challengeOrdered By: EMANUEL IVAN on 01-21-2023 ALP [Catalytic activity/Vol] 171 U/L 45-117 [facility] ALT [Catalytic activity/Vol] 116 U/L 13-56 [facility] Globulin (S) [Mass/Vol] 2.9 g/dL 2.2-4.2 [facility] Laboratory - Hematology and Cell countsOrdered By: EMANUEL IVAN on 01-21-2023 Erythrocyte distribution width (RBC) [Entitic vol] 46.2 fL 35.1-43.9 [facility] Erythrocyte distribution width (RBC) [Ratio] 13.3 % 11.6-14.6 [facility] Immature granulocytes/100 WBC (Bld) 0.300 % 0.0-0.9 [facility] Comment on above: IG% - Immature Granu locytes (promyelocytes, myelocytes and metamyelocytes) > 1% indicates that a LEFT SHIFT is Present. MCH (RBC) [Entitic mass] 31.9 pg 27.0-32.0 [facility] Nucleated RBC/100 WBC (Bld) [Ratio] 0 % 0-5 [facility] MCHC Auto (RBC) [Mass/Vol]Or dered By: EMANUEL IVAN on 01-21-2023 MCHC (RBC) [Mass/Vol] 33.6 g/dL 32-36 [facility] Platelets bldOrdered By: HARRIET ROTHMANARTIE on 01-21-2023 Platelets (Bld) [#/Vol] 147 10*3/uL 150-450 [facility] Serum or plasma albumin new urement (mass/volume)Ordered By: EMANUEL MONCHO on 01-21-2023 Albumin [Mass/Vol] 3.8 g/dL 3.2-5.0 [facility] Thin prep Papanicolaou smear with manual screeningOrdered By: EMANUEL MONCHO on 01-21-2023 Thin prep Papanicolaou smear with manual screening 92 U/L 15-37 [facility] Cervical or vagninal specime n microscopic examination by cytology stain (reported ason 06-03-2022 Cytology report Cyto stain Doc (Cvx/Vag) Comment . [facility] Work Phone: Comment on above: [...] [phone] DNA Probe+sig amp Ql (Cvx) TNP [facility] Work Phone: Comment on above: Test not performedTe st not performed. Liquid based PAP vial containedinsufficient specimen for molecular testing; likely aconsequence of insufficient cellularity in originalcollection.This nucleic acid amplification test detects fourteen high-risk HPV types (16,18,31,33,35,39,45,51,52,56,58,59,66,68)without differentiation. Laboratory - Cytologyon 05-14 Manager Installation Cyto stain Nom (Cvx/Vag) [ID] Comment . [facility] Work Phone: Comment on above: Virginie Hernandez, [employer] hnologist (ASCP) Laboratory - Miscellaneous t estson 06-03-2022 Service comment (Unsp spec) [Interp] Comment . [facility] Work Phone: Comment on above: This liquid based Th inPrep(R) pap test was screened withthe use of an image guided system. Service comment (Unsp spec) [Interp] . . [facility] Work Phone: Liquid-based cerv Pap + CT/G C by FRANCES w reflex to high-risk HPV for ASCUSon 06-03-2022 Cytology report Cyto stain.thin prep Doc (Cvx/Vag) Comment . [facility] Work Phone: Comment on above: Criteria not met, HP V Genotype not performed. No Panel Informationon 06-03 Pathology report final diagnosis Narrative Comment . [facility] Work Phone: Comment on above: NEGATIVE FOR INTRAEP ITHELIAL LESION OR MALIGNANCY. Absolute lymphocyte counton 05-27-2022 Lymphocytes Auto (Unsp spec) [#/Vol] 1.55 10*3/uL 0.83-4.51 [facility] Work Phone: Basophil percentageon 2021 Basophils/100 WBC (Bld) 0.8 % 0-1 [facility] Work Phone: Bilirubin [Mass/Vol] 0.50 mg/dL 0.20-1.00 [facility] Work Phone: Comment on above: For patients on eltr ombopag therapy, use of Dimension Lena TBIL is not recommended. Chloride [Moles/Vol] 107 mmol/L 98-107 [facility] Work Phone: Cholesterol [Mass/Vol] 139 mg/dL <200 [facility] Work Phone: Comment on above: <200 mg/dL Desirable 200-240 mg/dL Borderline >240 mg/dL High Risk Eosinophils/100 WBC (Bld) 5.0 % 0-5 [facility] Work Phone: Glucose [Mass/Vol] 92 mg/dL 74-106 [facility] Work Phone: Neutrophils (Bld) [#/Vol] 2.9 10*3/uL 2.0-7.7 [facility] Work Phone: Neutrophils/100 WBC (Bld) 55.5 % 47-70 [facility] Work Phone: Potassium [Moles/Vol] 4.4 mmol/L 3.5-5.1 [facility] Work Phone: [phone] Protein [Mass/Vol] 6.9 g/dL 6.4-8.2 [facility] Work Phone: Sodium [Moles/Vol] 139 mmol/L 136-145 [facility] Work Phone: [phone] Triglyceride [Mass/Vol] 120 mg/dL <199 [facility] Work Phone: Comment on above: The drugs N-Acetylcy steine and Metamizole may falsely depress this assay.Serum Triglycerides Reference Interval Normal <150 mg/dL Borderline high 150 - 199 mg/dL High 200 - 499 mg/dL Very High > or = 500 mg/dL WBC (Bld) [#/Vol] 5.2 10*3/uL 4.4-11.0 [facility] Work Phone: Blood erythrocytes count (nu mber/volume)on 05-27-2022 RBC (Bld) [#/Vol] 3.97 10*6/uL 4.2-5.4 [facility] Work Phone: Blood hemoglobin measurement (mass/volume)on 05-27-2022 Hemoglobin (Bld) [Mass/Vol] 12.2 g/dL 12.0-15.0 [facility] Work Phone: Blood lymphocytes/100 leukoc yteson 05-27-2022 Lymphocytes/100 WBC (Bld) 30.0 % 19-41 [facility] Work Phone: Blood monocytes/100 leukocyt eson 05-27-2022 Monocytes/100 WBC (Bld) 8.3 % 0-10 [facility] Work Phone: Blood platelet mean volumeon 05-27-2022 Platelet mean volume (Bld) [Entitic vol] 10.4 fL 6.2-12.0 [facility] Work Phone: Determination of erythrocyte mean corpuscular volume (MCV)on 05-27-2022 MCV (RBC) [Entitic vol] 94.5 fL 81-99 [facility] Work Phone: Hematocrit Auto (Bld) [Volum e fraction]on 05-27-2022 Hematocrit (Bld) [Volume fraction] 37.5 % 37-47 [facility] Work Phone: Laboratory - Chemistry and C hemistry - challengeon 05-27-2022 ALP [Catalytic activity/Vol] 69 U/L 45-117 [facility] Work Phone: ALT [Catalytic activity/Vol] 18 U/L 13-56 [facility] Work Phone: CO2 [Moles/Vol] 26.0 mmol/L 21.0-32.0 [facility] Work Phone: Globulin (S) [Mass/Vol] 3.3 g/dL 2.2-4.2 [facility] Work Phone: Urea nitrogen/Creatinine [Mass ratio] 23.0 mg/mg 10-20 [facility] Work Phone: Laboratory - Hematology and Cell countson 05-27-2022 Erythrocyte distribution width (RBC) [Entitic vol] 45.6 fL 35.1-43.9 [facility] Work Phone: Erythrocyte distribution width (RBC) [Ratio] 13.2 % 11.6-14.6 [facility] Work Phone: Immature granulocytes/100 WBC (Bld) 0.400 % 0.0-0.9 [facility] Work Phone: Comment on above: IG% - Immature Granu locytes (promyelocytes, myelocytes and metamyelocytes) > 1% indicates that a LEFT SHIFT is Present. MCH (RBC) [Entitic mass] 30.7 pg 27.0-32.0 [facility] Work Phone: Nucleated RBC/100 WBC (Bld) [Ratio] 0 % 0-5 [facility] Work Phone: MCHC Auto (RBC) [Mass/Vol]on 05-27-2022 MCHC (RBC) [Mass/Vol] 32.5 g/dL 32-36 [facility] Work Phone: No Panel Informationon 05-27 Estimated GFR (MDRD) Amer 116 mL/min >60 [facility] Work Phone: Comment on above: GFR Calc Estimated GFR (MDRD) Non-Af Amer 96 mL/min >60 [facility] Work Phone: Comment on above: Non- GFR Calc Vitamin D 25-Hydroxy 46.4 ng/mL [facility] Work Phone: Comment on above: Vitamin D 25(OH) Sta tus Range Deficiency <20 ng/mL (50nmol/L) Insufficiency 20 - 30 ng/mL (50 - 75 nmol/L) Sufficiency 30 - 100 ng/mL (75 - 250 nmol/L) Toxicity >100 ng/mL (>250 nmol/L) Platelets bldon 05-27-2022 Platelets (Bld) [#/Vol] 287 10*3/uL 150-450 [facility] Work Phone: Serum or plasma albumin new urement (mass/volume)on 05-27-2022 Albumin [Mass/Vol] 3.6 g/dL 3.2-5.0 [facility] Work Phone: Serum or plasma albumin/glob ulin mass ratioon 05-27-2022 Albumin/Globulin [Mass ratio] 1.1 {ratio} 0.9-2.4 [facility] Work Phone: Serum or plasma calcium new urement (mass/volume)on 05-27-2022 Calcium [Mass/Vol] 8.5 mg/dL 8.5-10.1 [facility] Work Phone: Serum or plasma cholesterol in HDL measurement (mass/volume)on 05-27-2022 Cholesterol in HDL [Mass/Vol] 60 mg/dL >40 [facility] Work Phone: Comment on above: The drugs N-Acetylcy steine and Metamizole may falsely depress this assay. Reference Range HDL <40 mg/dL Low HDL Cholesterol HDL >or= 60 mg/dL High HDL Cholesterol Serum or plasma cholesterol in VLDL measurement (mass/volume)on 05-27-2022 Cholesterol in VLDL [Mass/Vol] 24 mg/dL 5-40 [facility] Work Phone: Serum or plasma creatinine m easurement (mass/volume)on 05-27-2022 Creatinine [Mass/Vol] 0.70 mg/dL 0.55-1.02 [facility] Work Phone: Comment on above: The validity of the calculated GFR & GFRAA in patients over 70 years has not been determined. Clinical correlation is essential. Serum or plasma low density lipoprotein (LDL) cholesterol measurement (mass/volume)on 05-27-2022 Cholesterol in LDL [Mass/Vol] 55 mg/dL 0-130 [facility] Work Phone: Serum or plasma urea nitroge n measurement (mass/volume)on 05-27-2022 Urea nitrogen [Mass/Vol] 16 mg/dL 7-18 [facility] Work Phone: Thin prep Papanicolaou smear with manual screeningon 05-27-2022 Thin prep Papanicolaou smear with manual screening 13 U/L 15-37 [facility] Work Phone: Thin prep Papanicolaou smear with manual screening 6 5-15 [facility] Work Phone: ANES POSTPROC EVALon 022 ANES POSTPROC EVAL HNO ID: [id number] Author: Juanjose Gambino DO Service: ? 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 Post [...] May 01, 2022 TIME: 6:20 PM CSN: [id number] [facility] ANES PRE-OPon 05-01-2022 ANES PRE-OP HNO ID: [id number] Author: Freedom Green DO Service: Anesthesiology Author Type: Physician Type: Anesthesia Preprocedure Evaluation Filed: 05/01/2022 2:25 PM Note Text: ANESTHESIOLOGY DAY OF SURGERY NOTE : 1975 Procedure Information Date/Time: 05/01/22 1515 Procedure: EXCISION OF NEUROMA DIGITAL NERVE Location: [...] May 01, 2022 TIME: 2:24 PM CSN: [id number] Normal [facility] HCG ( test) Ql (U)o n 05-01-2022 Specific gravity (U) [Rel density] 1.005 Normal 1.005-1.030 [facility] Comment on above: Order Comment: Speci men Type: URINE SPECIMEN Ordering Facility: [facility] Address: [address] [place] [address] Performed By: #### 2 106-3 #### [facility] CLIA [id number] [address] [place] [address] [place] HCG Preg Ur Qlon 05-01-2022 HCG ( test) Ql (U) Normal [facility] Comment on above: Order Comment: Speci men Type: URINE SPECIMEN Ordering Facility: [facility] Address: [address] [place] [address] Result Comment: TEST NOT PERFORMED. NOTIFIED MORRO IN SDS AT 1354 ON 05/01/2022 Performed By: #### 2 106-3 #### [facility] CLIA [id number] [address] [place] [address] [place] HCG QUAL BLDon 05-01-2022 HCG, QUALITATIVE Negative Normal Negative [facility] Comment on above: Order Comment: Speci men Type: BLOOD SPECIMEN Ordering Facility: [facility] Address: [address] [place] [address] Performed By: #### H CG #### [facility] CLIA [id number] [address] [place], [place] [id number] [place] HISTORY PHYSICALon HISTORY PHYSICAL HNO ID: [id number] Author: Michael Zafar DPM Service: Podiatry Author [...] DATE: May 01, 2022 TIME: 3:51 PM [facility] OPERATIVE NOon 05-01-2022 OPERATIVE NO HNO ID: [id number] Author: Ar Carlson DPM Service: Podiatry Author Type: Physician Type: Operative Report Filed: 05/01/2022 5:44 PM Note Text: OPERATIVE/PROCEDURE REPORT LOG ID: [id number] SURGERY/PROCEDURE DATE: 05/01/2022 INCISION/PROCEDURE START TIME: 4:48 PM INCISION CLOSE/PROCEDURE END TIME: 5:17 PM SURGEON(S)/PROCEDURALIS T(S) AND ENVIRONMENTAL FIELD PROFESSIONAL(S): Surgeon(s) and Role: * Michael Zafar, BEATRIS - Primary * Ar Carlson DPM - [...] 01, 2022 TIME: 5:33 PM PAGER/CONTACT #: [facility] SURGICAL PATHOLOGYon 05-01- 022 CASE REPORT Normal [facility] Comment on above: Order Comment: Speci men Type: TISSUE SPECIMEN Ordering Facility: [facility] Address: [address] [place] [address] Result Comment: Surg ical Pathology Report Case: [id number] Authorizing Provider: Michael Zafar DPM Collected: 05/01/2022 04:54 PM Ordering Location: [facility] Surgery Received: 05/02/2022 07:28 AM Pathologist: Arlene Walker MD Specimen: SOFT TISSUE, Neuroma left foot Performed By: #### S #### [facility] CLIA [id number] [address] [place] [address] CLINICAL HISTORY Normal [facility] Comment on above: Order Comment: Speci men Type: TISSUE SPECIMEN Ordering Facility: [facility] Address: [address] [place] [address] Result Comment: Pre- op diagnosis: Left foot pain [M79.672] 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 L eft foot, neuroma, excision: - Fibroadipose tissue and hypertrophic nerves with focal fibrosis consistent with neuroma. Performed By: #### S #### [facility] CLIA [id number] [address] [place] [address] FINAL PERFORMING LAB Normal [facility] Comment on above: Order Comment: Speci men Type: TISSUE SPECIMEN Ordering Facility: [facility] Address: [address] [place] [address] Result Comment: Diag nostic interpretation performed at [facility], [address] [place] [address] CLIA# [id number] Resource Development Director: Arlene Walker M.D. Performed By: #### S #### [facility] CLIA [id number] [address] [place] [address] GROSS DESCRIPTION A. SOFT TISSUE [facility] Comment on above: Order Comment: Speci men Type: TISSUE SPECIMEN Ordering Facility: [facility] Address: [address] [place] [address] Result Comment: Rece ived in formalin labeled with patient name and medical record number and neuroma left foot, are 2 yellow-rivas portions of soft tissue aggregating 1.9 x 1.1 x 0.4 cm. The specimen is entirely submitted in cassette A1. Gross examination performed at [facility], [address] [place] [address] CLIA#[id number] Wendy Kim May 02, 2022 8:17 AM Performed By: #### S #### [facility] CLIA [id number] [address] [place] [address] MICROSCOPIC DESCRIPTION One H AND E stai elder slide examined. [facility] Comment on above: Order Comment: Speci men Type: TISSUE SPECIMEN Ordering Facility: [facility] Address: [address] [place] [address] Performed By: #### S #### [facility] CLIA [id number] [address] [place] [address] NURSING PROGon 04-30-2022 NURSING PROG HNO ID: [id number] Author: Yulisa Montanez, MARVA Service: Nursing Author Type: Registered Nurse Type: [...] color), Ensure Pre-Surgery (given by PEARL or your DrYandel), fruit juice without pulp (apple/cranberry), clear tea, [...] directed. Bring copy of Living Will/Power of Redrawer. Do not smoke or chew. If you [...] the Surgery Center. UPON ARRIVAL: Access to [facility] is located on [address] [employer] parking is available for your convenience from [...] 03-04-2022 ESR (Bld) [Velocity] 5 mm/h 0-30 [facility] Work Phone: Absolute lymphocyte counton 02-13-2022 Lymphocytes Auto (Unsp spec) [#/Vol] 1.44 10*3/uL 0.83-4.51 [facility] Work Phone: Basophil percentageon 2021 Basophils/100 WBC (Bld) 0.6 % 0-1 [facility] Work Phone: Eosinophils/100 WBC (Bld) 2.8 % 0-5 [facility] Work Phone: Neutrophils (Bld) [#/Vol] 3.0 10*3/uL 2.0-7.7 [facility] Work Phone: Neutrophils/100 WBC (Bld) 58.7 % 47-70 [facility] Work Phone: WBC (Bld) [#/Vol] 5.0 10*3/uL 4.4-11.0 [facility] Work Phone: Blood erythrocytes count (nu mber/volume)on 02-13-2022 RBC (Bld) [#/Vol] 3.76 10*6/uL 4.2-5.4 [facility] Work Phone: Blood hemoglobin measurement (mass/volume)on 02-13-2022 Hemoglobin (Bld) [Mass/Vol] 12.1 g/dL 12.0-15.0 [facility] Work Phone: Blood lymphocytes/100 leukoc yteson 02-13-2022 Lymphocytes/100 WBC (Bld) 28.6 % 19-41 [facility] Work Phone: Blood monocytes/100 leukocyt eson 02-13-2022 Monocytes/100 WBC (Bld) 9.1 % 0-10 [facility] Work Phone: Blood platelet mean volumeon 02-13-2022 Platelet mean volume (Bld) [Entitic vol] 10.3 fL 6.2-12.0 [facility] Work Phone: Determination of erythrocyte mean corpuscular volume (MCV)on 02-13-2022 MCV (RBC) [Entitic vol] 95.5 fL 81-99 [facility] Work Phone: [phone] Hematocrit Auto (Bld) [Volum e fraction]on 02-13-2022 Hematocrit (Bld) [Volume fraction] 35.9 % 37-47 [facility] Work Phone: Laboratory - Hematology and Cell countson 02-13-2022 Erythrocyte distribution width (RBC) [Entitic vol] 47.2 fL 35.1-43.9 [facility] Work Phone: Erythrocyte distribution width (RBC) [Ratio] 13.3 % 11.6-14.6 [facility] Work Phone: [phone] Immature granulocytes/100 WBC (Bld) 0.200 % 0.0-0.9 [facility] Work Phone: [phone] Comment on above: IG% - Immature Granu locytes (promyelocytes, myelocytes and metamyelocytes) > 1% indicates that a LEFT SHIFT is Present. MCH (RBC) [Entitic mass] 32.2 pg 27.0-32.0 [facility] Work Phone: Nucleated RBC/100 WBC (Bld) [Ratio] 0 % 0-5 [facility] Work Phone: [phone] MCHC Auto (RBC) [Mass/Vol]on 02-13-2022 MCHC (RBC) [Mass/Vol] 33.7 g/dL 32-36 [facility] Work [facility]: [phone] Platelets bldon 02-13-2022 Platelets (Bld) [#/Vol] 262 10*3/uL 150-450 [facility] Work Phone: Absolute lymphocyte counton 01-22-2022 Lymphocytes Auto (Unsp spec) [#/Vol] 1.94 10*3/uL 0.83-4.51 [facility] Work Phone: Basophil percentageon 2021 Basophils/100 WBC (Bld) 1.0 % 0-1 [facility] Work Phone: Bilirubin [Mass/Vol] 0.20 mg/dL 0.20-1.00 [facility] Work Phone: Comment on above: For patients on eltr ombopag therapy, use of Dimension Lena TBIL is not recommended. Chloride [Moles/Vol] 106 mmol/L 98-107 [facility] Work Phone: Cholesterol [Mass/Vol] 175 mg/dL <200 [facility] Work Phone: Comment on above: <200 mg/dL Desirable 200-240 mg/dL Borderline >240 mg/dL High Risk Eosinophils/100 WBC (Bld) 2.5 % 0-5 [facility] Work Phone: Glucose [Mass/Vol] 90 mg/dL 74-106 [facility] Work Phone: Neutrophils (Bld) [#/Vol] 4.9 10*3/uL 2.0-7.7 [facility] Work Phone: Neutrophils/100 WBC (Bld) 62.8 % 47-70 [facility] Work Phone: Potassium [Moles/Vol] 4.0 mmol/L 3.5-5.1 [facility] Work Phone: Protein [Mass/Vol] 7.0 g/dL 6.4-8.2 [facility] Work Phone: Sodium [Moles/Vol] 137 mmol/L 136-145 [facility] Work Phone: Triglyceride [Mass/Vol] 141 mg/dL <199 [facility] Work Phone: Comment on above: The drugs N-Acetylcy steine and Metamizole may falsely depress this assay.Serum Triglycerides Reference Interval Normal <150 mg/dL Borderline high 150 - 199 mg/dL High 200 - 499 mg/dL Very High > or = 500 mg/dL WBC (Bld) [#/Vol] 7.7 10*3/uL 4.4-11.0 [facility] Work Phone: Blood erythrocytes count (nu mber/volume)on 01-22-2022 RBC (Bld) [#/Vol] 3.95 10*6/uL 4.2-5.4 [facility] Work Phone: Blood hemoglobin measurement (mass/volume)on 01-22-2022 Hemoglobin (Bld) [Mass/Vol] 12.5 g/dL 12.0-15.0 [facility] Work Phone: [phone] Blood lymphocytes/100 leukoc yteson 01-22-2022 Lymphocytes/100 WBC (Bld) 25.1 % 19-41 [facility] Work Phone: [phone] Blood monocytes/100 leukocyt eson 01-22-2022 Monocytes/100 WBC (Bld) 8.3 % 0-10 [facility] Work Phone: Blood platelet mean volumeon 01-22-2022 Platelet mean volume (Bld) [Entitic vol] 11.7 fL 6.2-12.0 [facility] Work Phone: Determination of erythrocyte mean corpuscular volume (MCV)on 01-22-2022 MCV (RBC) [Entitic vol] 93.9 fL 81-99 [facility] Work Phone: Hematocrit Auto (Bld) [Volum e fraction]on 01-22-2022 Hematocrit (Bld) [Volume fraction] 37.1 % 37-47 [facility] Work Phone: Laboratory - Chemistry and C hemistry - challengeon 01-22-2022 ALP [Catalytic activity/Vol] 79 U/L 45-117 [facility] Work Phone: ALT [Catalytic activity/Vol] 21 U/L 13-56 [facility] Work Phone: CO2 [Moles/Vol] 28.0 mmol/L 21.0-32.0 [facility] Work Phone: Globulin (S) [Mass/Vol] 3.2 g/dL 2.2-4.2 [facility] Work Phone: Urea nitrogen/Creatinine [Mass ratio] 24.2 mg/mg 10-20 [facility] Work Phone: Laboratory - Hematology and Cell countson 01-22-2022 Erythrocyte distribution width (RBC) [Entitic vol] 43.8 fL 35.1-43.9 [facility] Work Phone: Erythrocyte distribution width (RBC) [Ratio] 12.8 % 11.6-14.6 [facility] Work Phone: Immature granulocytes/100 WBC (Bld) 0.300 % 0.0-0.9 [facility] Work Phone: Comment on above: IG% - Immature Granu locytes (promyelocytes, myelocytes and metamyelocytes) > 1% indicates that a LEFT SHIFT is Present. MCH (RBC) [Entitic mass] 31.6 pg 27.0-32.0 [facility] Work Phone: Nucleated RBC/100 WBC (Bld) [Ratio] 0 % 0-5 [facility] Work Phone: MCHC Auto (RBC) [Mass/Vol]on 01-22-2022 MCHC (RBC) [Mass/Vol] 33.7 g/dL 32-36 [facility] Work Phone: No Panel Informationon 01-22 Estimated GFR (MDRD) Amer 144 mL/min >60 [facility] Work Phone: Comment on above: GFR Calc Estimated GFR (MDRD) Non-Af Amer 119 mL/min >60 [facility] Work Phone: Comment on above: Non- GFR Calc Vitamin D 25-Hydroxy 46.5 ng/mL [facility] Work Phone: Comment on above: Vitamin D 25(OH) Sta tus Range Deficiency <20 ng/mL (50nmol/L) Insufficiency 20 - 30 ng/mL (50 - 75 nmol/L) Sufficiency 30 - 100 ng/mL (75 - 250 nmol/L) Toxicity >100 ng/mL (>250 nmol/L) Platelets bldon 01-22-2022 Platelets (Bld) [#/Vol] 297 10*3/uL 150-450 [facility] Work Phone: Serum or plasma albumin new urement (mass/volume)on 01-22-2022 Albumin [Mass/Vol] 3.8 g/dL 3.2-5.0 [facility] Work Phone: Serum or plasma albumin/glob ulin mass ratioon 01-22-2022 Albumin/Globulin [Mass ratio] 1.2 {ratio} 0.9-2.4 [facility] Work Phone: Serum or plasma calcium new urement (mass/volume)on 01-22-2022 Calcium [Mass/Vol] 9.4 mg/dL 8.5-10.1 [facility] Work Phone: Serum or plasma cholesterol in HDL measurement (mass/volume)on 01-22-2022 Cholesterol in HDL [Mass/Vol] 58 mg/dL >40 [facility] Work Phone: Comment on above: The drugs N-Acetylcy steine and Metamizole may falsely depress this assay. Reference Range HDL <40 mg/dL Low HDL Cholesterol HDL >or= 60 mg/dL High HDL Cholesterol Serum or plasma cholesterol in VLDL measurement (mass/volume)on 01-22-2022 Cholesterol in VLDL [Mass/Vol] 28 mg/dL 5-40 [facility] Work Phone: Serum or plasma creatinine m easurement (mass/volume)on 01-22-2022 Creatinine [Mass/Vol] 0.58 mg/dL 0.55-1.02 [facility] Work Phone: Comment on above: The validity of the calculated GFR & GFRAA in patients over 70 years has not been determined. Clinical correlation is essential. Serum or plasma low density lipoprotein (LDL) cholesterol measurement (mass/volume)on 01-22-2022 Cholesterol in LDL [Mass/Vol] 89 mg/dL 0-130 [facility] Work Phone: Serum or plasma urea nitroge n measurement (mass/volume)on 01-22-2022 Urea nitrogen [Mass/Vol] 14 mg/dL 7-18 [facility] Work Phone: Thin prep Papanicolaou smear with manual screeningon 01-22-2022 Thin prep Papanicolaou smear with manual screening 18 U/L 15-37 [facility] Work Phone: Thin prep Papanicolaou smear with manual screening 3 5-15 [facility] Work Phone: Glucose Glucometer (BldC) [M ass/Vol]on 12-17-2021 Glucose [Mass/Vol] 89 mg/dL 74-106 [facility] Work Phone: Comment on above: MANAGEMENT OF PATIEN T CARE PER NURSING PROTOCOL Absolute lymphocyte counton 12-05-2021 Lymphocytes Auto (Unsp spec) [#/Vol] 1.76 10*3/uL 0.83-4.51 [facility] Work Phone: Basophil percentageon 2021 Basophils/100 WBC (Bld) 0.7 % 0-1 [facility] Work Phone: Chloride [Moles/Vol] 104 mmol/L 98-107 [facility] Work Phone: [phone] Eosinophils/100 WBC (Bld) 4.0 % 0-5 [facility] Work Phone: Glucose [Mass/Vol] 100 mg/dL 74-106 [facility] Work Phone: Comment on above: Fasting Glucose resu lt from 100 to 125 mg/dL suggests IMPAIRED HOMEOSTASIS per A.D.A. criteria. Neutrophils (Bld) [#/Vol] 3.5 10*3/uL 2.0-7.7 [facility] Work Phone: Neutrophils/100 WBC (Bld) 57.9 % 47-70 [facility] Work Phone: Potassium [Moles/Vol] 3.6 mmol/L 3.5-5.1 [facility] Work Phone: [phone] Sodium [Moles/Vol] 138 mmol/L 136-145 [facility] Work Phone: WBC (Bld) [#/Vol] 6.1 10*3/uL 4.4-11.0 [facility] Work Phone: Blood erythrocytes count (nu mber/volume)on 12-05-2021 RBC (Bld) [#/Vol] 3.86 10*6/uL 4.2-5.4 [facility]: Blood hemoglobin measurement (mass/volume)on 12-05-2021 Hemoglobin (Bld) [Mass/Vol] 12.1 g/dL 12.0-15.0 [facility] Work Phone: Blood lymphocytes/100 leukoc yteson 12-05-2021 Lymphocytes/100 WBC (Bld) 29.0 % 19-41 [facility] Work Phone: Blood monocytes/100 leukocyt eson 12-05-2021 Monocytes/100 WBC (Bld) 8.2 % 0-10 [facility] Work Phone: Blood platelet mean volumeon 12-05-2021 Platelet mean volume (Bld) [Entitic vol] 10.7 fL 6.2-12.0 [facility] Work Phone: Determination of erythrocyte mean corpuscular volume (MCV)on 12-05-2021 MCV (RBC) [Entitic vol] 92.7 fL 81-99 [facility] Work Phone: HIV 1 and HIV-2 antibody ass ay with HIV-1 p24 antigen detectionon 12-05-2021 HIV 1+2 Ab+HIV1 p24 Ag IA Ql Non-Reactive Nonreactive [facility] Work Phone: Hematocrit Auto (Bld) [Volum e fraction]on 12-05-2021 Hematocrit (Bld) [Volume fraction] 35.8 % 37-47 [facility] Work Phone: Laboratory - Chemistry and C hemistry - challengeon 12-05-2021 CO2 [Moles/Vol] 26.0 mmol/L 21.0-32.0 [facility] Work Phone: Magnesium [Mass/Vol] 1.9 mg/dL 1.6-2.6 [facility] Work Phone: Urea nitrogen/Creatinine [Mass ratio] 19.7 mg/mg 10-20 [facility] Work Phone: Laboratory - Hematology and Cell countson 12-05-2021 Erythrocyte distribution width (RBC) [Entitic vol] 42.6 fL 35.1-43.9 [facility] Work Phone: Erythrocyte distribution width (RBC) [Ratio] 12.6 % 11.6-14.6 [facility] Work Phone: Immature granulocytes/100 WBC (Bld) 0.200 % 0.0-0.9 [facility] Work Phone: Comment on above: IG% - Immature Granu locytes (promyelocytes, myelocytes and metamyelocytes) > 1% indicates that a LEFT SHIFT is Present. MCH (RBC) [Entitic mass] 31.3 pg 27.0-32.0 [facility] Work Phone: Nucleated RBC/100 WBC (Bld) [Ratio] 0 % 0-5 [facility] Work Phone: MCHC Auto (RBC) [Mass/Vol]on 12-05-2021 MCHC (RBC) [Mass/Vol] 33.8 g/dL 32-36 [facility] Work Phone: No Panel Informationon 12-05 Estimated GFR (MDRD) Amer 136 mL/min >60 [facility] Work Phone: Comment on above: GFR Calc Estimated GFR (MDRD) Non-Af Amer 112 mL/min >60 [facility] Work Phone: Comment on above: Non- GFR Calc Hepatitis A Antibody Total Negative Negative [facility] Work Phone: Comment on above: Performed at: [address] [id number] Director: Jose Miguel Grimm PhD, Phone: [phone] Hepatitis C Antibody Non-Reactive Nonreactive [facility] Work Phone: Comment on above: Non Reactive: < 0.8 Equivocal: >/= 0.8 to < 1.0 Reactive: >/= 1.0The [facility] recommends that a reactive/equivocal HCV antibody result be followed up by the HCV Nucleic Acid Amplificationtest (551640) Nasal Screen MRSA/MSSA [facility] Work Phone: Platelets bldon 12-05-2021 Platelets (Bld) [#/Vol] 257 10*3/uL 150-450 [facility] Work Phone: Serum hepatitis B virus surf peri antibody IgG detectionon 12-05-2021 HBV surface IgG Ql (S) Non-Reactive [facility] Work Phone: Comment on above: Non Reactive: Incons istent with immunity less than <10 mIU/mL Reactive: Consistent with immunity greater than or equal to 10 mIU/mL Serum or plasma calcium new urement (mass/volume)on 12-05-2021 Calcium [Mass/Vol] 8.8 mg/dL 8.5-10.1 [facility] Work Phone: Serum or plasma creatinine m easurement (mass/volume)on 12-05-2021 Creatinine [Mass/Vol] 0.61 mg/dL 0.55-1.02 [facility] Work Phone: Comment on above: The validity of the calculated GFR & GFRAA in patients over 70 years has not been determined. Clinical correlation is essential. Serum or plasma urea nitroge n measurement (mass/volume)on 12-05-2021 Urea nitrogen [Mass/Vol] 12 mg/dL 7-18 [facility] Work Phone: Thin prep Papanicolaou smear with manual screeningon 12-05-2021 Thin prep Papanicolaou smear with manual screening 8 5-15 [facility] Work Phone: Erythrocyte sedimentation ra maritza 10-24-2021 ESR (Bld) [Velocity] 5 mm/h 0-30 [facility] Work Phone: Serum or plasma C reactive p rotein measurement (mass/volume)on 10-24-2021 CRP [Mass/Vol] mg/L 0.0-3.0 [facility] Work Phone: Comment on above: C-Reactive Protein ( CRP) provides useful information for thediagnosis, therapy and monitoring of inflammatory processesand associated diseases. For the evaluation of Relative Riskfor Cardiovascular Disease, a High Sensitivity CRP (HSCRP)should be ordered. Serum or plasma cortisol santos surement (mass/volume)on 08-01-2021 Cortisol [Mass/Vol] 21.90 ug/dL 3.44-22.45 [facility] Work Phone: Comment on above: Adult (AM) 5.27 - 22 .45 ug/dL Adult (PM) 3.44 - 16.76 ug/dLPlease note revised CORTISOL reference range effective 2019. CNOVon 03-28-2021 CNOV Office Visit (PRINCESST ) TIERRA MALCOLM ([id number]) 1975 F Date Time Provider Department 03/28/21 [...] as a follow-up 3 months from her [facility] hysteroscopy and endometrial ablation. She states she [...] Savannah Gomez DO Referring Provider: SAVANNAH GOMEZ [[id number]] Allergies As of Date: 03/28/2021 (No Known [...] Encounter Status:Closed by SAVANNAH GOMEZ on 03/28/21 [facility] 02-21-2021 [facility] HNO ID: [id number] Author: Mammography Coordinator Service: ? Author Type: Physician Type: Letter Filed: 02/25/2021 11:31 PM Note Text: [address] [address] February 21, 2021 PID: [id number] Tierra Malcolm [address] [place] [address] Dear Ms. Malcolm, We are pleased to [...] report will be kept on file at [facility] as part of your permanent medical record and are available for your continuing care. Thank you for allowing us to help in meeting your health care needs. Sincerely, Dr. Mina Interpreting Radiologist [facility] (Normal over 40) Normal [facility] SCREENINGon 02-21-2021 [facility] SCREENING * * *Final Report* * * DATE OF EXAM: Feb 21 2021 8:25AM LDW 0581 - [facility] SCREENING / PROCEDURE REASON: Encounter for screening mammogram for malignant neoplasm of breast * * * * Physician Interpretation * * * * #[id number] - [facility] SCREENING BILATERAL DIGITAL SCREENING MAMMOGRAM WITH CAD: 02/21/2021 HISTORY: / Screening Mammogram-Patient reports NO symptoms. RESULT: TECHNIQUE: The study was acquired using full field digital technology and interpreted from soft copy. Current study was also evaluated with a Computer Aided Detection (CAD). Comparison is made to exams dated: 01/17/2020 mammogram - [facility], 01/11/2020 mammogram, 01/04/2020 mammogram, 09/28/2018 mammogram, and 06/02/2017 mammogram - [facility]. The tissue of both breasts is heterogeneously dense. This may lower the sensitivity of mammography. No significant masses, calcifications, or other findings are seen in either breast. There has been no significant interval change. IMPRESSION: NEGATIVE There is no mammographic evidence of malignancy. A 1 year screening mammogram is recommended. Heaven monsivais/stanislaw:02/21/2021 08:28:57 Supervisor [employer](s): Brian Neely (Edith)(M), [facility] letter sent: Normal over 40 Mammogram [...] Health, Family Medicine, and Medical/Surgical Oncology, the [facility] has carefully reviewed the data and reached [...] their providers when to stop screening mammograms. Division Chief: Stanislaw Transcribe Date/Time: Feb 21 2021 8:09A Dictated by : HEAVEN MINA MD This examination was interpreted and the report reviewed and electronically signed by: HEAVEN MINA MD on Feb 21 2021 8:28AM EST [id number] Normal [facility] CNOVon 01-07-2021 CNOV Office Visit (AGOBST ) TIERRA MALCOLM ([id number]) 1975 F Date Time Provider Department 01/07/21 [...] Post-Op Visit SUBJECTIVE Presents 2 weeks postop TOMMY hysteroscopy and endometrial ablation. She is doing [...] Savannah Gomez DO Referring Provider: SAVANNAH GOMEZ [[id number]] Allergies As of Date: 01/07/2021 (No Known [...] Encounter Status:Closed by SAVANNAH GOMEZ on 01/07/21 [facility] ANES POSTPROC EVALon 021 ANES POSTPROC EVAL HNO ID: [id number] Author: Yfn Spears MD Service: Anesthesiology Author Type: Physician Type: Anesthesia Postprocedure Evaluation Filed: 12/25/2020 9:48 PM Note Text: POST ANESTHESIA EVALUATION NOTE : 1975 Procedure Summary Date: 12/25/20 Room / Location: [place] OR / [place] OR Anesthesia Start: 751 Anesthesia Stop: 834 [...] December 25, 2020 TIME: 9:48 PM CSN: [id number] [facility] ANES PRE-OPon 12-25-2020 ANES PRE-OP HNO ID: [id number] Author: Nikolas Mcmullen MD Service: Anesthesiology Author [...] December 25, 2020 TIME: 7:15 AM CSN: [id number] [facility] HISTORY PHYSICALon HISTORY PHYSICAL HNO ID: [id number] Author: Karina Peng DO Service: Gynecology Author [...] DATE: December 25, 2020 TIME: 7:25 AM [facility] OPERATIVE NOon 12-25-2020 OPERATIVE NO HNO ID: [id number] Author: Karina Peng DO Service: Gynecology Author Type: Resident Type: Operative Report Filed: 12/25/2020 8:37 AM Note Text: Attestation signed by Savannah Gomez DO at 12/25/2020 8:42 AM Attestation: I was present for the critical and asencio portions of the surgery and I was immediately available to provide assistance. Signature: Savannah Gomez DO [employer] OPERATIVE/PROCEDURE REPORT LOG ID: [id number] Surgery/Procedure Date: 12/25/2020 Incision/Procedure Start Time: 8:09 AM Incision Close/Procedure End Time: 8:23 AM Surgeon(s)/Proceduralis t(s) and Head Of Ethics And Compliance(s): Surgeon(s) and Role: * Savannah Gomez DO - Primary * Karina Peng DO - Resident - Assisting Informed Consent: [...] 2020 TIME: 8:34 AM PAGER/CONTACT #: Normal [facility] SURGICAL PATHOLOGYon 15-2 021 CASE REPORT Normal [facility] Comment on above: Order Comment: Speci men Type: BLOOD SPECIMEN Result Comment: Surg ical Pathology Report Case: [id number] Authorizing Provider: Savannah Gomez DO Collected: 12/25/2020 08:17 AM Ordering Location: [place] [facility] Received: 12/25/2020 01:00 PM Pathologist: Naseem Tse MD Specimen: ENDOMETRIUM CURETTINGS Performed By: #### H STNT #### [facility] CLIA [id number] [address] [place] [address] [facility] FINAL DIAGNOSIS Normal [facility] Comment on above: Order Comment: Speci men Type: BLOOD SPECIMEN Result Comment: Endo metrial curettings - Menstrual phase endometrium. No associated hyperplastic or neoplastic process is identified. Performed By: #### H STNT #### [facility] CLIA [id number] [address] [place] [address] [facility] FINAL PERFORMING LAB Normal [facility] Comment on above: Order Comment: Speci men Type: BLOOD SPECIMEN Result Comment: Diag nostic interpretation performed at [facility], [address] [place] [address] CLIA# [id number] Resource Development Director: Adam Lopez M.D. Performed By: #### H STNT #### [facility] CLIA [id number] [address] [place] [address] [facility] GROSS DESCRIPTION Normal [facility] Comment on above: Order Comment: Speci men Type: BLOOD SPECIMEN Result Comment: A. E NDOMETRIUM CURETTINGS. Received in formalin labeled endometrium curettings are multiple pink-red soft and feathery tissue fragments admixed with clotted blood and mucus aggregating to 4.5 x 2.3 x 0.3 cm. Totally submitted in 3 cassettes. RSA/kls Gross examination performed at [facility], [address] [place] [address] CLIA# [id number] Performed By: #### H STNT #### [facility] CLIA [id number] [address] [place] [address] [facility] PreOp/PreProc COVIDon 2020 SARS-CoV-2 (COVID-19) RNA FRANCES+probe Ql (Unsp spec) UPPER RESPIRATORY TRACT SWAB Normal [facility] Comment on above: Performed By: #### P OCOVD #### [place] [id number] SARS-CoV-2 (COVID-19) RNA FRANCES+probe Ql (Unsp spec) Negative for COVID19 (SARS CoV2) by RT-PCR or equivalent method. Normal Negative for COVID19 (SARS CoV2) by RT-PCR or equivalent method. [facility] Comment on above: Result Comment: This test was developed and its performance characteristics determined by [facility] [place]. This test has been authorized by FDA under an Emergency Use Authorization (EUA). This test has been validated in accordance with the FDA's Guidance Document Policy for Diagnostics Testing in Laboratories Certified to Perform High Complexity Testing under CLIA prior to Emergency use Authorization for Coronavirus Disease 2019 during the Public Health Emergency issued on September 10, 2019. Test performed by [facility], [facility] [place], [address] [place] [address]. Performed By: #### P OCOVD #### [place] [id number] CNOVon 11-27-2020 CNOV Office Visit (PRINCESST ) TIERRA MALCOLM ([id number]) 1975 F Date Time Provider Department 11/27/20 1:45 PM SAVANNAH GOMEZ During your visit today, we recorded the following information about you: Blood pressure Weight Height Last Period 117/81 79.8 kg 1.6 m 11/01/20 Maria Isabel Connor LPN 11/27/2020 1:44 PM Signed Pt appt to sign electronic surgical consent. CINTHIA Pedersen Naseem Patricia, 11/27/2020 1:52 PM Signed Tierra Gaston Gold is a 45 year old female who presents with a chief complaint of Pre-Op Visit (Sign surgery consent) SUBJECTIVE Patient presents for preop for her [facility] hysteroscopy and endometrial ablation. We went over [...] Savannah Gomez DO Referring Provider: SAVANNAH GOMEZ [[id number]] Allergies As of Date: 11/27/2020 (No Known [...] MG TA (more content not included)... [facility] Tele[facility] (PRINCESST) TIERRA MALCOLM ([id number]) 1975 F Date Time Provider Department 11/08/20 SAVANNAH GOMEZ During your visit today, we recorded the following information about you: Raegan Blanchard RN 11/08/2020 12:02 PM Signed Pt calling-seen 10/29/2020 by KAYLEY for consult ablation-pt had TVUS completed 11/06/2020, results available for review in [facility]. Please review and advise. Savannah Gomez DO [...] Status:Closed by SAVANNAH GOMEZ on 11/08/20 Normal [facility] US FEMALE PELVIS TRANSABD LT Don 11-06-2020 FEMALE PELVIS TRANSABD LTD * * *Final [...] upper uterine body most likely a fibroid. Division Chief: CYRUS Transcribe Date/Time: Nov 06 2020 3:52P Dictated by : APRIL MADISON MD This examination was interpreted and the report reviewed and electronically signed by: APRIL MADISON MD on Nov 06 2020 3:58PM EST [id number] Normal [facility] US FEMALE PELVIS TRANSVAGon 11-06-2020 US FEMALE [...] upper uterine body most likely a fibroid. Division Chief: [facility] Transcribe Date/Time: Nov 06 2020 3:52P Dictated by : APRIL MADISON MD This examination was interpreted and the report reviewed and electronically signed by: APRIL MADISON MD on Nov 06 2020 3:58PM EST [id number] Normal [facility] CNOVon 10-29-2020 CNOV Office Visit (AGOBST ) TIERRA MALCOLM ([id number]) 1975 F Date Time Provider Department 10/29/20 3:00 PM SAVANNAH GOMEZ During your visit today, we recorded the following information about you: Blood pressure Weight Height Last Period 139/79 79.8 kg 1.6 m 10/10/20 Savnanah Gomez DO 10/29/2020 3:08 PM Signed Tierra Gaston Gold is a 45 [...] Dr. Mae. She does not use anything [id number] to make her bleeding any better PAST [...] 626.2, ICD10: N92.0 Obtain an ultrasound at [facility] and possibly set up surgery after the results have come back - PELVIC US WHI Savannah Gomez DO Referring Provider: SELF [[id number]] Allergies As of Date: 10/29/2020 (No Known Allergies) Date Reviewed: 10/29/2020 Reviewed by: Wendy Ko Ma - Fully Assessed Reason for Visit: Consult [173] Cmt: consult for ablation Primary Visit Diagnosis:Menorrhagia with regular cycle [N92.0] Order(s):PELVIC US [facility] [[id number]] Order #: [id number]: 1 Prescriptions as of 10/29/2020 Sig: ROSUVASTATIN 10 MG TABLET Take 10 mg by mouth once felicia* PREDNISONE 10 MG TABLETS IN A* Take by mouth once daily. PREDNISONE 10 MG TABLET TAKE THREE TABLETS BY MOUTH O* PREDNISONE 20 MG TABLET TAKE 4 TABLETS BY MOUTH ONCE * ZINC 50 MG TABLE (more content not included)... Normal [facility] CNOVon 10-22-2020 CNOV Office Visit (DORENE JOHNSON) TIERRA MALCOLM ([id number]) 1975 F Date Time Provider Department 10/22/20 10:15 AM HARINDER MAE During your visit today, we recorded the following information about you: Temperature Pulse Respiration Blood pressure 98.1 degrees 87/minute 16/minute 137/74 Weight Height Last Period 78.9 kg 1.6 m 10/09/20 NELDA ACOSTA, RN, RN 10/22/2020 10:07 AM Signed Pt [...] Multiple0 Live Births0 Past Gynecological History: see [place] PAST MEDICAL HISTORY Diagnosis Date - Fibroadenoma [...] and pelvic exam BREAST - without masses 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 - normal, Vagina - normal - [...] Harinder Mae MD Referring Provider: HARINDER MAE [[id number]] Allergies As of Date: 10/22/2020 (No Known Allergies) Date Reviewed: 10/22/2020 Reviewed by: Harinder Mae - Fully Assessed Reason for Visit: Card Grinder Exam [50] Cmt: yearly pap test, pt states heavy menses Primary Visit Diagnosis:Encounter for annual routine gynecological examination [Z01.419] Other Visit Diagnoses:Encounter for screening mammogram for malignant neoplasm of breast [Z12.31] Encounter for Papanicolaou smear for cervical cancer screening [Z12.4] Order(s):MARTHA SCREENING [[id number]] Order #: [id number] FUTURE PAP FLUID CERVICAL SCREENING [[id number]] Order #: [id number]. #:[id number] Prescriptions as of 10/22/2020 Sig: PREDNISONE 10 MG TABLETS IN A* Take by mouth once daily. ZINC 50 MG TABLET Take 50 mg by mouth once felicia* DEXAMETHASONE 4 MG TABLET Take 1 tablet by mouth daily * ALBUTEROL SUL (more content not included)... Normal [facility] PAP FLUID CERVICAL SCREENING on 10-22-2020 CASE REPORT Normal [facility] Comment on above: Order Comment: Speci men Type: FLUID SAMPLE Result Comment: Gyne cologic Cytology Report Case: [id number] Authorizing Provider: Harinder Quintanilla Pap Collected: 10/22/2020 10:40 AM Ordering Location: [facility] Obstetrics & Received: 10/23/2020 05:09 AM Gynecology First Screen: Alexia (Ct Ascp) Radha Specimen: PAP MANUAL SCREENING, CERVICAL SCREENING FLUID Performed By: #### L [id number] #### [facility] CLIA [id number] [address] [place] [address] CLINICAL HISTORY ROUTINE EXAM Normal [facility] Comment on above: Order Comment: Speci men Type: FLUID SAMPLE Performed By: #### L [id number] #### [facility] CLIA [id number] [address] [place] [address] CYTOLOGY INTERPRETATION PAP Normal [facility] Comment on above: Order Comment: Speci men Type: FLUID SAMPLE Result Comment: Nega tive for Intraepithelial lesion or malignancy. Performed By: #### L [id number] #### [facility] CLIA [id number] [address] [place] [address] FINAL DIAGNOSIS Normal [facility] Comment on above: Order Comment: Speci men Type: FLUID SAMPLE Result Comment: A - CERVICAL SCREENING FLUID Satisfactory for interpretation, No endocervical component Negative for Intraepithelial lesion or malignancy. Performed By: #### L [id number] #### [facility] CLIA [id number] [place] [address] FINAL PERFORMING LAB Normal [facility] Comment on above: Order Comment: Speci men Type: FLUID SAMPLE Result Comment: Tech nical component, registered representative screening performed at [facility], [address] [place] [address] CLIA# [id number] Diagnostic interpretation performed at [facility], [address] [place] [address] CLIA# [id number] Resource Development Director: Adam Lopez M.D. Performed By: #### L [id number] #### [facility] CLIA [id number] [address] [place] [address] HPV REQUESTED? Yes, Reflex HPV for ASCUS Normal [facility] Comment on above: Order Comment: Speci men Type: FLUID SAMPLE Performed By: #### L [id number] #### [facility] CLIA [id number] [address] [place] [address] LMP 10/09/2020 Normal [facility] Comment on above: Order Comment: Speci men Type: FLUID SAMPLE Performed By: #### L [id number] #### [facility] CLIA [id number] [address] [place] [address] PAP DISCLAIMER COMMENT The Pap Smear is a screening test for cervical cancer. False negative results occur with all screening tests, emphasizing the need for rescreening at recommended intervals, and clinical correlation. Normal [facility] Comment on above: Order Comment: Speci men Type: FLUID SAMPLE Performed By: #### L [id number] #### [facility] CLIA [id number] [address] [place] [address] Basic metabolic 2000 panelon 08-10-2020 Anion gap [Moles/Vol] 10 mmol/L Normal 9-18 [facility] Comment on above: Order Comment: Speci men Type: BLOOD SPECIMEN Performed By: #### 2 4321-2, 33776-0 #### [facility] CLIA [id number] [address] [facility] [place] [address] [place] Calcium [Mass/Vol] 9.4 mg/dL Normal 8.5-10.2 [facility] Comment on above: Order Comment: Speci men Type: BLOOD SPECIMEN Performed By: #### 2 4321-2, 01452-8 #### [facility] CLIA [id number] [address] [facility] [place] [address] [place] Chloride [Moles/Vol] 103 mmol/L Normal 97-105 [facility] Comment on above: Order Comment: Speci men Type: BLOOD SPECIMEN Performed By: #### 2 4321-2, 10550-5 #### [facility] [place] [facility] CLIA [id number] [address] [place] [address] [facility] CO2 [Moles/Vol] 24 mmol/L Normal 22-30 [facility] Comment on above: Order Comment: Speci men Type: BLOOD SPECIMEN Performed By: #### 2 4321-2, 86594-3 #### [facility] CLIA [id number] [address] [place] [address] [place] Creatinine [Mass/Vol] 0.66 mg/dL Normal 0.58-0.96 [facility] Comment on above: Order Comment: Speci men Type: BLOOD SPECIMEN Performed By: #### 2 4321-2, 22736-4 #### [facility] CLIA [id number] [address] [place] [address] [place] GFR/1.73 sq M.predicted among blacks MDRD (S/P/Bld) [Vol rate/Area] mL/min/{1.73_m2} [facility] Comment on above: Order Comment: Speci men Type: BLOOD SPECIMEN Performed By: #### 2 4321-2, 79942-7 #### [facility] CLIA [id number] [address] [place] [address] [facility] [place] GFR/1.73 sq M.predicted among non-blacks MDRD (S/P/Bld) [Vol rate/Area] mL/min/{1.73_m2} [facility] Comment on above: Order [...] actual GFR. Performed By: #### 2 4321-2, 74925-3 #### [facility] [place] [facility] CLIA [id number] [address] [place] [address] [place] Glucose [Mass/Vol] 91 mg/dL Normal 74-99 [facility] Comment on above: Order Comment: Speci men Type: BLOOD SPECIMEN Result Comment: The [place] Diabetes Association (ADA) provides guidance for cutoff [...] Standards of Medical Care in Diabetes 2016, [place] Diabetes Association. Diabetes Care. 2016.39(Suppl 1). Performed By: #### 2 4321-2, 55290-4 #### [facility] [place] [facility] CLIA [id number] [address] [place] [address] [place] Potassium [Moles/Vol] 4.2 mmol/L Normal 3.7-5.1 [facility] Comment on above: Order Comment: Speci men Type: BLOOD SPECIMEN Performed By: #### 2 4321-2, 10466-3 #### [facility] [place] [facility] CLIA [id number] [address] [place] [address] [place] Sodium [Moles/Vol] 137 mmol/L Normal 136-144 [facility] Comment on above: Order Comment: Speci men Type: BLOOD SPECIMEN Performed By: #### 2 4321-2, 59753-7 #### [facility] [place] [facility] CLIA [id number] [address] [facility] [place] [address] [place] Urea nitrogen [Mass/Vol] 11 mg/dL Normal 7-21 [facility] Comment on above: Order Comment: Speci men Type: BLOOD SPECIMEN Performed By: #### 2 4321-2, 70776-9 #### [facility] [place] [facility] CLIA [id number] [address] [place] [address] [facility] CBC W Auto Differential pane l (Bld)on 08-10-2020 Basophils (Bld) [#/Vol] 0.03 10*3/uL Normal <0.11 [facility] Comment on above: Order Comment: Speci men Type: BLOOD SPECIMEN Performed By: #### 5 7021-8 #### [facility] [facility] CLIA [id number] [address] [place] [address] [facility] Basophils/100 WBC (Bld) 0.6 % Normal [place] Comment on above: Order Comment: Speci men Type: BLOOD SPECIMEN Performed By: #### 5 7021-8 #### [facility] [facility] CLIA [id number] [address] [place] [address] [facility] Differential cell count method Nom (Bld) Auto Normal [facility] Comment on above: Order Comment: Speci men Type: BLOOD SPECIMEN Performed By: #### 5 7021-8 #### [facility] [place] [facility] CLIA [id number] [address] [place] [address] [facility] Eosinophils (Bld) [#/Vol] 0.14 10*3/uL Normal <0.46 [facility] Comment on above: Order Comment: Speci men Type: BLOOD SPECIMEN Performed By: #### 5 7021-8 #### [facility] [place] [facility] CLIA [id number] [address] [facility] [place] [address] [facility] Eosinophils/100 WBC (Bld) 2.9 % Normal [facility] Comment on above: Order Comment: Speci men Type: BLOOD SPECIMEN Performed By: #### 5 7021-8 #### [facility] [place] [facility] CLIA [id number] [address] [place] [address] [place] Erythrocyte distribution width (RBC) [Ratio] 14.3 % Normal 11.5-15.0 [facility] Comment on above: Order Comment: Speci men Type: BLOOD SPECIMEN Performed By: #### 5 7021-8 #### [facility] [place] [facility] CLIA [id number] [address] [facility] [address] [facility] Hematocrit (Bld) [Volume fraction] 35.1 % Low 36.0-46.0 [facility] Comment on above: Order Comment: Speci men Type: BLOOD SPECIMEN Performed By: #### 5 7021-8 #### [facility] [place] [facility] CLIA [id number] [address] [place] [address] [facility] [place] Hemoglobin (Bld) [Mass/Vol] 11.7 g/dL Normal 11.5-15.5 [facility] Comment on above: Order Comment: Speci men Type: BLOOD SPECIMEN Performed By: #### 5 7021-8 #### [facility] [facility] CLIA [id number] [address] [facility] [address] [place] Lymphocytes (Bld) [#/Vol] 0.94 10*3/uL Low 1.00-4.00 [facility] Comment on above: Order Comment: Speci men Type: BLOOD SPECIMEN Performed By: #### 5 7021-8 #### [facility] [place] [facility] CLIA [id number] [address] [place] [address] [facility] Lymphocytes/100 WBC (Bld) 19.5 % Normal [facility] Comment on above: Order Comment: Speci men Type: BLOOD SPECIMEN Performed By: #### 5 7021-8 #### [facility] [facility] CLIA [id number] [address] [facility] [address] [facility] [place] MCH (RBC) [Entitic mass] 31.4 pg Normal 26.0-34.0 [facility] Comment on above: Order Comment: Speci men Type: BLOOD SPECIMEN Performed By: #### 5 7021-8 #### [facility] [place] [facility] CLIA [id number] [address] [place] [address] [facility] MCHC (RBC) [Mass/Vol] 33.3 g/dL Normal 30.5-36.0 [facility] Comment on above: Order Comment: Speci men Type: BLOOD SPECIMEN Performed By: #### 5 7021-8 #### [facility] [place] [facility] CLIA [id number] [address] [place] [address] [facility] [place] MCV (RBC) [Entitic vol] 94.1 fL Normal 80.0-100.0 [place] Comment on above: Order Comment: Speci men Type: BLOOD SPECIMEN Performed By: #### 5 7021-8 #### [facility] [place] [facility] CLIA [id number] [address] [place] [address] [facility] Monocytes (Bld) [#/Vol] 0.86 10*3/uL Normal <0.87 [facility] Comment on above: Order Comment: Speci men Type: BLOOD SPECIMEN Performed By: #### 5 7021-8 #### [facility] [place] [facility] CLIA [id number] [address] [place] [address] [place] Monocytes/100 WBC (Bld) 17.8 % Normal [place] Comment on above: Order Comment: Speci men Type: BLOOD SPECIMEN Performed By: #### 5 7021-8 #### [facility] [place] [facility] CLIA [id number] [address] [place] [address] [facility] [place] Neutrophils (Bld) [#/Vol] 2.86 10*3/uL Normal 1.45-7.50 [facility] Comment on above: Order Comment: Speci men Type: BLOOD SPECIMEN Performed By: #### 5 7021-8 #### [facility] [facility] CLIA [id number] [address] [place] [address] [place] Neutrophils/100 WBC (Bld) 59.2 % Normal [facility] Comment on above: Order Comment: Speci men Type: BLOOD SPECIMEN Performed By: #### 5 7021-8 #### [facility] [place] [facility] CLIA [id number] [address] [place] [address] [place] PLATELET ESTIMATE Adequate Normal [facility] Comment on above: Order Comment: Speci men Type: BLOOD SPECIMEN Performed By: #### 5 7021-8 #### [facility] [facility] CLIA [id number] [address] [facility] [place] [address] [place] Platelet mean volume (Bld) [Entitic vol] 9.7 fL Normal 9.0-12.7 [facility] Comment on above: Order Comment: Speci men Type: BLOOD SPECIMEN Performed By: #### 5 7021-8 #### [facility] [facility] CLIA [id number] [address] [facility] [place] [address] [place] Platelets (Bld) [#/Vol] 308 10*3/uL Normal 150-400 [facility] Comment on above: Order Comment: Speci men Type: BLOOD SPECIMEN Performed By: #### 5 7021-8 #### [facility] [place] [facility] CLIA [id number] [address] [facility] [place] [address] [place] RBC (Bld) [#/Vol] 3.73 10*6/uL Low 3.90-5.20 [facility] Comment on above: Order Comment: Speci men Type: BLOOD SPECIMEN Performed By: #### 5 7021-8 #### [facility] [facility] CLIA [id number] [address] [facility] [place] [address] [place] RED CELL MORPH Normal Normal [facility] Comment on above: Order Comment: Speci men Type: BLOOD SPECIMEN Performed By: #### 5 7021-8 #### [facility] [place] [facility] CLIA [id number] [address] [facility] [place] [address] [place] WBC (Bld) [#/Vol] 4.83 10*3/uL Normal 3.70-11.00 [facility] Comment on above: Order Comment: Speci men Type: BLOOD SPECIMEN Performed By: #### 5 7021-8 #### [facility] [facility] CLIA [id number] [address] [facility] [place] [address] [place] CT CHEST W IVCON PEon 2020 CT CHEST W IVCON PE Final Report DATE OF EXAM: Aug 10 2020 12:10PM [facility] - CT CHEST W IVCON PE [...] No abnormality in the imaged upper abdomen. Engineering Technology Instructor (topogram) images: IMPRESSION: 1. No evidence of [...] months from the initial exam) is recommended. Division Chief: CYRUS Transcribe Date/Time: Aug 10 2020 12:32P Dictated by : ADRI EMERSON MD This examination was interpreted and the report reviewed and electronically signed by: ADRI EMERSON MD on Aug 10 2020 12:50PM EST ACTIONABLE Normal [facility] D dimer FEU PPP-mCncon 08-10 Fibrin D-dimer FEU (PPP) [Mass/Vol] 380 ng/mL FEU Normal <500 [facility] Comment on above: Order Comment: Speci men Type: BLOOD SPECIMEN Performed By: #### 4 8065-7, 87049-5 #### [facility] CLIA [id number] [address] [place] [address] OF [facility] HCG Preg Ur Qlon 08-10-2020 HCG ( test) Ql (U) Negative Normal Negative [facility] Comment on above: Order Comment: Speci men Type: URINE SPECIMEN Result Comment: This test is intended to aid in the early detection of . Very dilute urine samples, as indicated by a low specific gravity, may not contain account representative levels of hCG. This test detects intact [...] . Performed By: #### 2 106-3 #### [facility] [place] [facility] CLIA [id number] [address] [place] [address] [facility] HIGH SENSITIVITY TROPONIN To n 08-10-2020 HIGH SENSITIVITY CHARLES <6 Normal <12 [facility] Comment on above: Order Comment: Speci [...] MACE. Performed By: #### H STNT #### [facility] CLIA [id number] [address] [place] [address] [facility] HIGH SENSITIVITY CHARLES <6 Normal <12 [facility] Comment on above: Order Comment: Speci [...] MACE. Performed By: #### H STNT #### [facility] CLIA [id number] [address] [place] [address] [facility] NT-proBNP [facility] 08-10 Natriuretic peptide.B prohormone N-Terminal [Mass/Vol] <50 Normal <125 [facility] Comment on above: Order Comment: Speci men Type: BLOOD SPECIMEN Performed By: #### 2 4321-2, 20436-2 #### [facility] [place] [facility] CLIA [id number] [address] [place] [address] [facility] PT panel Coag (PPP)on 2020 INR Coag (PPP) [Relative time] 1.0 {INR} Normal 0.9-1.3 [facility] Comment on above: Order Comment: Speci men Type: BLOOD SPECIMEN Result Comment: Kathy min K Antagonist (VKA) Therapeutic Range: INR 2 to 3 (Target INR of 2.5) Note: For patients treated with VKA drugs, such as warfarin, the [place] [employer]icians 2012 Guideline recommends [...] Chest 2012, 141:7S-47S Arturo RA, et al. JACC 2017, 70: 252-289 Performed By: #### 4 8065-7, 94969-5 #### [facility] CLIA [id number] [address] [place] [address] [place] PT Coag (PPP) [Time] 10.2 s Normal 9.7-13.0 [facility] Comment on above: Order Comment: Speci men Type: BLOOD SPECIMEN Performed By: #### 4 8065-7, 80252-1 #### [facility] CLIA [id number] [address] [place] [address] [facility] No Panel Information Nasal Screen MRSA/MSSA [facility] Work Phone: Vital Signs Date Time Vital Sign Value Performing Clinician Deonte arredondo 03-29-2025 07:56-0400 Body height 160.[address] Breezy Alegria MD Work Phone: [facility] 03-29-2025 07:56-0400 Body mass index (BMI) [Ratio] 29 kg/m2 Dr. Breezy Alegria MD Work Phone: 9(028)474-450269 [place] [address] 03-29-2025 07:56-0400 Body temperature 98.2 [degF] Dr. Breezy Alegria MD Work Phone: 4(212)930-182672 [address] 03-29-2025 07:56-0400 Body weight 74.[address] Breezy Alegria MD Work Phone: 7(481)296-911772 [address] 03-29-2025 07:56-0400 Diastolic blood pressure 81 mm[Hg] Dr. Breezy Alegria MD Work Phone: 1(837)057-943973 [place] [address] 03-29-2025 07:56-0400 Heart rate 96 /min Dr. Breezy Alegria MD Work Phone: 3(318)161-746173 [place] [address] 03-29-2025 07:56-0400 Respiratory rate 16 /min Dr. Breezy Alegria MD Work Phone: 5(857)971-505572 [address] 03-29-2025 07:56-0400 SaO2% (BldA) [Mass fraction] 98 % Dr. Breezy Alegria MD Work Phone: 3(037)662-146772 [address] 03-29-2025 07:56-0400 Systolic blood pressure 136 mm[Hg] Dr. Breezy Alegria MD Work Phone: 8(160)226-220469 [place] [address] 12-14-2024 07:53-0400 Body height 160.[address] Breezy Alegria MD Work Phone: 7(268)016-719972 [address] 12-14-2024 07:53-0400 Body mass index (BMI) [Ratio] 29.2 kg/m2 Dr. Breezy Alegria MD Work Phone: 4(104)337-986069 [place] [address] 12-14-2024 07:53-0400 Body temperature 98.4 [degF] Dr. Breezy Alegria MD Work Phone: 6(877)512-773972 [address] 12-14-2024 07:53-0400 Body weight 74.[address] Breezy Alegria MD Work Phone: [facility] 12-14-2024 07:53-0400 Diastolic blood pressure 69 mm[Hg] Dr. Breezy Alegria MD Work Phone: [facility] 12-14-2024 07:53-0400 Heart rate 85 /min Dr. Breezy Alegria MD Work Phone: 1(006)660-269969 [place] [address] 12-14-2024 07:53-0400 Respiratory rate 15 /min Dr. Breezy Alegria MD Work Phone: 9(798)970-715769 [place] [address] 12-14-2024 07:53-0400 SaO2% (BldA) [Mass fraction] 97 % Dr. Breezy Alegria MD Work Phone: 9(861)971-689269 [place] [address] 12-14-2024 07:53-0400 Systolic blood pressure 117 mm[Hg] Dr. Breezy Alegria MD Work Phone: 9(354)410-539669 [place] [address] 09-08-2024 08:48-0500 Body mass index (BMI) [Ratio] 30.2 kg/m2 Dr. Breezy Alegria MD Work Phone: 7(102)024-934669 [place] [address] 09-08-2024 08:48-0500 Body weight 77.[address] Breezy Alegria MD Work Phone: 0(523)106-840669 [place] [address] 09-08-2024 08:48-0500 Diastolic blood pressure 82 mm[Hg] Dr. Breezy Alegria MD Work Phone: 7(153)348-430069 [place] [address] 09-08-2024 08:48-0500 Systolic blood pressure 124 mm[Hg] Dr. Breezy Alegria MD Work Phone: 0(531)259-597969 [place] [address] 11-04-2023 08:47-0400 Body height 160.[address] Breezy Alegria Work Phone: [facility] 11-04-2023 08:47-0400 Body mass index (BMI) [Ratio] 31.8 kg/m2 Dr. Breezy Alegria Work Phone: [facility] 11-04-2023 08:47-0400 Body weight 81.[address] Breezy Alegria Work Phone: [facility] 11-04-2023 08:47-0400 Diastolic blood pressure 68 mm[Hg] Dr. Breezy Alegria Work Phone: [facility] 11-04-2023 08:47-0400 Systolic blood pressure 120 mm[Hg] Dr. Breezy Alegria Work Phone: [facility] 09-02-2023 10:16-0500 Body height 160.[address] Breezy Alegria Work Phone: [facility] 09-02-2023 10:05-0500 Body mass index (BMI) [Ratio] 31.2 kg/m2 Dr. Breezy Alegria Work Phone: [facility] 09-02-2023 10:05-0500 Body weight 80.[address] Breezy Alegria Work Phone: [facility] 09-02-2023 10:05-0500 Diastolic blood pressure 80 mm[Hg] Dr. Breezy Alegria Work Phone: [facility] 09-02-2023 10:05-0500 Systolic blood pressure 128 mm[Hg] Dr. Breezy Alegria Work Phone: [facility] 08-17-2023 08:47-0500 Body temperature 98 [degF] Dr. Breezy Alegria Work Phone: [facility] 08-17-2023 08:47-0500 Diastolic blood pressure 83 mm[Hg] Dr. Breezy Alegria Work Phone: [facility] 08-17-2023 08:47-0500 Heart rate 94 /min Dr. Breezy Alegria Work Phone: [facility] 08-17-2023 08:47-0500 Respiratory rate 15 /min Dr. Breezy Alegria Work Phone: [facility] 08-17-2023 08:47-0500 SaO2% (BldA) [Mass fraction] 99 % Dr. Breezy Alegria Work Phone: [facility] 08-17-2023 08:47-0500 Systolic blood pressure 105 mm[Hg] Dr. Breezy Alegria Work Phone: [facility] 06-10-2023 12:45-0500 Body temperature 97.9 [degF] Dr. Breezy Alegria Work Phone: 7(679)645-967469 [place] [address] 06-10-2023 12:45-0500 Diastolic blood pressure 67 mm[Hg] Dr. Breezy Alegria Work Phone: 4(577)848-490673 [place] [address] 06-10-2023 12:45-0500 Heart rate 95 /min Dr. Breezy Alegria Work Phone: 5(079)847-638673 [place] [address] 06-10-2023 12:45-0500 Respiratory rate 18 /min Dr. Breezy Alegria Work Phone: 0(768)761-141173 [place] [address] 06-10-2023 12:45-0500 SaO2% (BldA) [Mass fraction] 100 % Dr. Breezy Alegria Work Phone: 8(015)946-983669 [place] [address] 06-10-2023 12:45-0500 Systolic blood pressure 121 mm[Hg] Dr. Breezy Alegria Work Phone: 7(465)506-505669 [place] [address] 06-09-2023 15:39-0500 Body height 160.[address] Breezy Alegria Work Phone: 6(501)610-226869 [place] [address] 06-09-2023 15:39-0500 Body mass index (BMI) [Ratio] 30.3 kg/m2 Dr. Breezy Alegria Work Phone: 9(125)193-290869 [place] [address] 06-09-2023 15:39-0500 Body weight 77.[address] Breezy Alegria Work Phone: 8(496)382-559673 [place] [address] 06-09-2023 13:12-0500 Inhaled oxygen flow rate 4 L/min Dr. Breezy Alegria Work Phone: 1(649)992-983572 [address] 05-20-2023 07:37-0500 Body mass index (BMI) [Ratio] 30.7 kg/m2 Dr. Breezy Alegria Work Phone: [facility] 05-20-2023 07:37-0500 Body temperature 98.2 [degF] Dr. Breezy Alegria Work Phone: [facility] 05-20-2023 07:37-0500 Body weight 78.[address] Breezy Alegria Work Phone: [facility] 05-20-2023 07:37-0500 Diastolic blood pressure 72 mm[Hg] Dr. Breezy Alegria Work Phone: 1(988)402-103472 [address] 05-20-2023 07:37-0500 Heart rate 72 /min Dr. Breezy Alegria Work Phone: 4(541)653-515772 [address] 05-20-2023 07:37-0500 Respiratory rate 16 /min Dr. Breezy Alegria Work Phone: 5(710)972-363872 [address] 05-20-2023 07:37-0500 SaO2% (BldA) [Mass fraction] 99 % Dr. Breezy Alegria Work Phone: 0(544)569-283569 [place] [address] 05-20-2023 07:37-0500 Systolic blood pressure 125 mm[Hg] Dr. Breezy Alegria Work Phone: [facility] 10-21-2022 12:46-0400 Body height 160.[address] Breezy Alegria Work Phone: [facility] 08-14-2022 10:32-0500 Body mass index (BMI) [Ratio] 29.7 kg/m2 Dr. Breezy Alegria Work Phone: [facility] 08-14-2022 10:32-0500 Body temperature 97.3 [degF] Dr. Breezy Alegria Work Phone: [facility] 08-14-2022 10:32-0500 Body weight 76.[address] Breezy Alegria Work Phone: [facility] 08-14-2022 10:32-0500 Diastolic blood pressure 77 mm[Hg] Dr. Breezy Alegria Work Phone: [facility] 08-14-2022 10:32-0500 Heart rate 85 /min Dr. Breezy Alegria Work Phone: [facility] 08-14-2022 10:32-0500 Respiratory rate 18 /min Dr. Breezy Alegria Work Phone: [facility] 08-14-2022 10:32-0500 SaO2% (BldA) [Mass fraction] 98 % Dr. Breezy Alegria Work Phone: [facility] 08-14-2022 10:32-0500 Systolic blood pressure 128 mm[Hg] Dr. Breezy Alegria Work Phone: [facility] 06-20-2022 13:29-0500 Body weight 75.[address] Breezy Alegria Work Phone: [facility] Work Phone: 06-20-2022 13:29-0500 Diastolic blood pressure 73 mm[Hg] Dr. Breezy Alegria Work Phone: [facility] Work Phone: 06-20-2022 13:29-0500 Heart rate 89 /min Dr. Breezy Alegria Work Phone: [facility] Work Phone: 06-20-2022 13:29-0500 Respiratory rate 17 /min Dr. Breezy Alegria Work Phone: [facility] Work Phone: 06-20-2022 13:29-0500 SaO2% (BldA) [Mass fraction] 99 % Dr. Breezy Alegria Work Phone: [facility] Work Phone: 06-20-2022 13:29-0500 Systolic blood pressure 112 mm[Hg] Dr. Breezy Alegria Work Phone: [facility] Work Phone: 12-18-2021 13:46-0400 Body temperature 98.5 [degF] Dr. Breezy Alegria Work Phone: [facility] Work Phone: 12-18-2021 13:46-0400 Diastolic blood pressure 69 mm[Hg] Dr. Breezy Alegria Work Phone: [facility] Work Phone: 12-18-2021 13:46-0400 Heart rate 86 /min Dr. Breezy Alegria Work Phone: [facility] Work Phone: 12-18-2021 13:46-0400 Respiratory rate 18 /min Dr. Breezy Alegria Work Phone: [facility] Work Phone: 12-18-2021 13:46-0400 SaO2% (BldA) [Mass fraction] 100 % Dr. Breezy Alegria Work Phone: [facility] Work Phone: 12-18-2021 13:46-0400 Systolic blood pressure 119 mm[Hg] Dr. Breezy Alegria Work Phone: [facility] Work Phone: 12-17-2021 15:08-0400 Inhaled oxygen flow rate 2 L/min Dr. Breezy Alegria Work Phone: [facility] Work Phone: 12-17-2021 13:05-0400 Body height 160.[address] Breezy Alegria Work Phone: [facility] Work Phone: 12-17-2021 13:05-0400 Body mass index (BMI) [Ratio] 29.2 kg/m2 Dr. Breezy Alegria Work Phone: [facility] Work Phone: 12-17-2021 13:05-0400 Body weight 74.[address] Breezy Alegria Work Phone: [facility] Work Phone: 08-19-2021 12:40-0500 Body height 160.[address] Breezy Alegria Work Phone: [facility] Work Phone: 08-19-2021 12:40-0500 Body mass index (BMI) [Ratio] 31.8 kg/m2 Dr. Breezy Alegria Work Phone: [facility] Work Phone: 08-19-2021 12:40-0500 Body weight 81.[address] Breezy Alegria Work Phone: [facility] Work Phone: 07-31-2021 06:59-0500 Body temperature 97.7 [degF] Dr. Breezy Alegria Work Phone: [facility] Work Phone: 07-31-2021 06:59-0500 Diastolic blood pressure 75 mm[Hg] Dr. Breezy Alegria Work Phone: [facility] Work Phone: 07-31-2021 06:59-0500 Heart rate 95 /min Dr. Breezy Alegria Work Phone: [facility] Work Phone: 07-31-2021 06:59-0500 Respiratory rate 16 /min Dr. Breezy Alegria Work Phone: [facility] Work Phone: 07-31-2021 06:59-0500 SaO2% (BldA) [Mass fraction] 96 % Dr. Breezy Alegria Work Phone: [facility] Work Phone: 07-31-2021 06:59-0500 Systolic blood pressure 122 mm[Hg] Dr. Breezy Alegria Work Phone: [facility] Work Phone: Encounters Encounter Date Encounter Type Care Provider Facility Start: 03-29-2025 End: 03-29-[address] Trino Christian MD -[facility] Work Phone: Start: 03-29-2025 End: 03-29-[address] Breezy Alegria MD Work Phone: -[facility] Start: 03-01-2025 End: 03-01-[address] Breezy Alegria MD Work Phone: -[facility] Start: 03-01-2025 End: 03-01-[address] Breezy Alegria MD -[facility] Start: 03-01-2025 End: 03-01-2025 ambulatory Breezy Alegria Facility:[facility] Start: 12-28-2024 ambulatory Trino Brooks y:[facility] Start: 12-28-2024 Non-patient / Non-visit Dr. Aury alvares MD -[facility] Start: 12-28-2024 End: 12-28-[address] Breezy Alegria MD Work Phone: [facility] Work Phone: Start: 12-28-2024 End: 12-28-[address] Trino Christian MD -Pulmonary Services/Neurology Work Phone: Start: 12-28-2024 End: 12-28-2024 [facility] Start: 12-14-2024 End: 12-14-[address] Trino Christian MD -[facility] Work Phone: Start: 12-14-2024 End: 12-14-[address] Breezy Alegria MD Work Phone: [facility] Work Phone: Start: 09-08-2024 End: 09-08-2024 Patient encounter procedure Arlene GAITAN -[facility] Work Phone: Start: 09-08-2024 End: 09-08-2024 ambulatory Breezy Alegria Facility:[facility] Start: 08-24-2024 End: 08-24-[address] Breezy Alegria MD -Laboratory [facility] Start: 08-24-2024 End: 08-24-2024 ambulatory Breezy Alegria Facility:[facility] Start: 08-23-2024 End: 08-23-[address] Breezy Alegria MD -Laboratory [facility] Start: 08-23-2024 End: 08-23-2024 ambulatory Breezy Alegria Facility:[facility] Start: 06-29-2024 End: 06-29-2024 ambulatory Breezy Alegria Facility:[facility] Start: 06-13-2024 End: 06-13-2024 ambulatory Breezy Alegria Facility:[facility] Start: 05-27-2024 ambulatory [facility] Facility:[facility] Start: 05-24-2024 End: 05-24-2024 ambulatory Breezy Alegria Facility:[facility] Start: 11-04-2023 End: 11-04-[address] Breezy Alegria Work Phone: [facility] Work Phone: Start: 11-04-2023 End: 11-04-[address] Breezy Alegria Work Phone: [facility] Work Phone: Start: 10-23-2023 End: 10-23-[address] Breezy Alegria Work Phone: [facility] Work Phone: Start: 10-23-2023 End: 10-23-[address] Breezy Alegria Work Phone: [facility] Start: 09-21-2023 End: 09-21-[address] Breezy Alegria Work Phone: [facility] Work Phone: Start: 09-02-2023 End: 09-02-[address] Breezy Alegria Work Phone: [facility]-Laboratory, Specimen Work Phone: Start: 09-02-2023 End: 09-02-[address] Breezy Alegria Work Phone: [facility] Work Phone: Start: 08-17-2023 End: 08-17-[address] Breezy Alegria Work Phone: [facility] Neurology Work Phone: Start: 08-05-2023 End: 08-05-[address] Breezy Alegria Work Phone: [facility] Work Phone: Start: 06-24-2023 End: 06-24-[address] Breezy Alegria Work Phone: [facility] Work Phone: Start: 06-24-2023 End: 06-24-[address] Breezy Alegria Work Phone: [facility]-Outpatient Breast Imaging Work Phone: Start: 06-24-2023 End: 06-24-[address] Breezy Alegria Work Phone: [facility] Work Phone: Start: 06-10-2023 Non-patient / Non-visit Dr. Olya Alegria Work Phone: [facility] Work Phone: Start: 06-09-2023 Non-patient / Non-visit Dr. Olya Alegria Work Phone: [facility] Work Phone: Start: 06-09-2023 Non-patient / Non-visit Dr. Olya Alegria Work Phone: [facility] Start: 06-09-2023 End: 06-10-2023 Evaluation and management of inpatient Dr. Breezy Alegria Work Phone: [facility]-Medical Surgical 3 Work Phone: Start: 06-09-2023 End: 06-10-[address] Breezy Alegria Work Phone: [facility] Work Phone: Start: 06-08-2023 Non-patient / Non-visit Dr. Olya Alegria Work Phone: [facility] Start: 05-29-2023 End: 05-29-2023 Non-patient / Non-visit Dr. Breezy Alegria Work Phone: [facility] Work Phone: Start: 05-29-2023 End: 05-29-[address] Breezy Alegria Work Phone: [facility] Work Phone: Start: 05-20-2023 End: 05-20-[address] Breezy Alegria Work Phone: [facility]-Pulmonary Medicine [facility] Work Phone: Start: 05-14-2023 End: 05-14-[address] Breezy Alegria Work Phone: [facility] Work Phone: Start: 05-14-2023 End: 05-14-[address] Breezy Alegria Work Phone: [facility]-Cat Scan, [facility] Work Phone: Start: 04-22-2023 Non-patient / Non-visit Dr. Olya Alegria Work Phone: [facility] Start: 04-21-2023 End: 04-21-[address] Breezy Alegria Work Phone: [facility] Work Phone: Start: 04-21-2023 End: 04-21-[address] Breezy Alegria Work Phone: [facility]-Pulmonary Services/Neurology Work Phone: Start: 04-08-2023 End: 04-08-[address] Breezy Alegria Work Phone: [facility] Work Phone: Start: 02-12-2023 Non-patient / Non-visit Dr. Olya Alegria Work Phone: [facility] Start: 02-12-2023 End: 02-12-[address] Breezy Alegria Work Phone: [facility] Work Phone: Start: 02-12-2023 End: 02-12-[address] Breezy Alegria Work Phone: [facility]-Cardiovascular Services Work Phone: Start: 02-10-2023 End: 02-10-[address] Breezy Alegria Work Phone: [facility] Work Phone: Start: 02-10-2023 End: 02-10-[address] Breezy Alegria Work Phone: [facility]-Cat [facility] Work Phone: Start: 01-29-2023 End: 01-29-[address] Breezy Alegria Work Phone: [facility] Work Phone: Start: 01-21-2023 End: 01-21-[address] Breezy Alegria Work Phone: [facility] Work Phone: Start: 01-21-2023 End: 01-21-[address] Breezy Alegria Work Phone: [facility] Start: 01-19-2023 End: 01-19-[address] Breezy Alegria Work Phone: [facility] Work Phone: Start: 01-19-2023 End: 01-19-[address] Breezy Alegria Work Phone: [facility] Work Phone: Start: 12-19-2022 End: 12-19-[address] Breezy Alegria Work Phone: [facility] Start: 12-16-2022 End: 12-16-[address] Breezy Alegria Work Phone: [facility] Work Phone: Start: 12-16-2022 End: 12-16-[address] Breezy Alegria Work Phone: [facility]-Outpatient Pavilion Ultrasound Start: 12-03-2022 End: 12-03-[address] Breezy Alegria Work Phone: [facility] Start: 11-14-2022 End: 11-14-[address] Breezy Alegria Work Phone: [facility] Start: 11-06-2022 End: 11-06-[address] Breezy Alegria Work Phone: [facility] Work Phone: Start: 11-06-2022 End: 11-06-[address] Breezy Alegria Work Phone: [facility] Start: 10-24-2022 End: 10-24-[address] Breezy Alegria Work Phone: [facility] Start: 08-14-2022 End: 08-14-[address] Breezy Alegria Work Phone: [facility]-Pulmonary Medicine [facility] Start: 06-20-[address] Breezy Alegria Work Phone: [facility]-Laboratory, Specimen Start: 06-20-2022 End: 06-20-[address] Breezy Alegria Work Phone: [facility] Start: 06-17-2022 End: 06-17-[address] Breezy Alegria Work Phone: [facility] Work Phone: Start: 06-17-2022 End: 06-17-[address] Breezy Alegria Work Phone: [facility]-Outpatient Pavilion Ultrasound Start: 06-16-2022 End: 06-16-[address] Breezy Alegria Work Phone: [facility]-Outpatient Breast Imaging Start: 06-03-2022 End: 06-03-[address] Breezy Alegria Work Phone: [facility] Work Phone: Start: 06-03-2022 End: 06-03-[address] Breezy Alegria Work Phone: [facility]-Laboratory, Specimen Start: 05-27-2022 End: 05-27-[address] Breezy Alegria Work Phone: [facility] Work Phone: Start: 05-27-2022 End: 05-27-[address] Breezy Alegria Work Phone: [facility] Start: 05-01-2022 End: 05-01-2022 ambulatory MICHAEL ZAFAR [facility]:[id number] Start: 04-28-2022 End: 04-28-[address] Breezy Alegria Work Phone: [facility] Start: 04-18-2022 ambulatory Michael Zafar [facility] Start: 03-10-2022 End: 03-10-[address] Breezy Alegria Work Phone: [facility] Start: 03-04-2022 End: 03-04-[address] Breezy Alegria Work Phone: [facility] Work Phone: Start: 03-04-2022 End: 03-04-[address] Breezy Alegria Work Phone: [facility] Start: 02-13-2022 End: 02-13-[address] Breezy Alegria Work Phone: [facility] Start: 01-27-2022 End: 01-27-[address] Breezy Alegria Work Phone: [facility] Start: 01-22-2022 End: 01-22-[address] Breezy Alegria Work Phone: [facility] Start: 01-17-2022 End: 01-17-[address] Breezy Alegria Work Phone: [facility] Start: 01-10-2022 End: 01-10-[address] Berezy Alegria Work Phone: [facility] Start: 12-30-2021 End: 12-30-[address] Breezy Alegria Work Phone: [facility] Start: 12-18-2021 Non-patient / Non-visit Dr. Olya Alegria Work Phone: [facility] Start: 12-18-2021 Non-patient / Non-visit Dr. Olya Alegria Work Phone: [facility] Inpatient Physicians Start: 12-17-2021 Non-patient / Non-visit Dr. Olya Alegria Work Phone: [facility] Start: 12-17-2021 Non-patient / Non-visit Dr. Olya Alegria Work Phone: [facility] Start: 12-17-2021 End: 12-18-2021 Evaluation and management of inpatient Dr. Breezy Alegria [facility] Start: 12-16-2021 Non-patient / Non-visit Dr. Olya Alegria Work Phone: [facility] Start: 12-06-2021 End: 12-06-[address] Breezy Alegria Work Phone: [facility] Start: 12-05-2021 Non-patient / Non-visit Dr. Olya Alegria Work Phone: [facility] Start: 11-27-2021 End: 11-27-[address] Breezy Alegria Work Phone: [facility] Start: 10-24-2021 End: 10-24-[address] Breezy Alegria Work Phone: [facility] Start: 10-16-2021 End: 10-16-[address] Breezy Alegria Work Phone: [facility]-Cat Scan, [facility] Start: 10-11-[address] Breezy Alergia Work Phone: [facility]-Physical Therapy Start: 08-19-2021 End: 08-19-[address] Breezy Alegria Work Phone: [facility]-[place] [facility] Start: 08-06-2021 End: 08-06-[address] Breezy Alegria Work Phone: [facility]-Radiology, [place] Start: 07-31-2021 End: 07-31-[address] Breezy Alegria Work Phone: [facility]-Medical Out Start: 07-19-2021 End: 07-19-[address] Breezy Alegria Work Phone: [facility]-Laboratory, Specimen Procedures Date Procedure Procedure Detail Performing Clinician Start: 03-01-2025 Total iron binding c apacity measurement Dr. Breezy Alegria MD Work Phone: Start: 03-01-2025 Vitamin D, 25-hydrox y measurement Dr. Breezy Alegria MD Work Phone: Comment on above: Vitamin D StatusDefi ciency: <20 ng/mL (50nmol/L)Insufficiency: 20-30 ng/mL (50-75 nmol/L)Sufficiency: 30-100 ng/mL (75-250 nmol/L)Toxicity: >100 ng/mL (>250 nmol/L) Start: 08-24-20[address]o dy [address] Breezy Alegria MD Work Phone: Comment on above: Thyroglobulin Antibo dy measured by Department of Health and Human ServicesMethodologyIt should be noted that the presence of thyroglobulinantibodies may not be pathogenic nor diagnostic, especiallyat very low levels. The assay hypoid gear generator has found thatfour percent of individuals without [...] Activity Detail Author Start: 06-10-2023 Patient discharge [facility] Start: 06-09-2023 Following clinical pathway protocol [facility] Start: 06-09-2023 Allograft for spine surgery only morselized SP BONE ALGRFT MORSEL ADD-ON [facility] Start: 06-09-2023 Anesthesia extensive spine & spinal cord ANESTH SPINE CORD SURGERY [facility] Start: 06-09-2023 Arthrd ant interbody decompress cervical belw c2 ARTHRD ANT NTRBDY CERVICAL [facility] Start: 06-09-2023 Bone marrow aspiration bone grfg spi surg only BONE MARROW ASPIR BONE GRFG [facility] Start: 06-09-2023 Insj biomchn dev intervertebral dsc spc w/arthrd INSJ BIOMECHANICAL DEVICE [facility] Start: 06-09-2023 Application of intermittent pneumatic compression device [facility] Start: 06-09-2023 Care of equipment and devices [facility] Start: 06-09-2023 Catheterization of vein [facility] Start: 06-09-2023 Consultation [facility] Start: 06-09-2023 Following clinical pathway protocol [facility] Start: 06-09-2023 Incentive spirometry [facility] Start: 06-09-2023 Introduction of urinary catheter [facility] Start: 06-09-2023 Measuring intake and output [facility] Start: 06-09-2023 Neurovascular assessment [facility] Start: 06-09-2023 Patient education [facility] Start: 06-09-2023 Procedure discontinued [facility] Start: 06-09-2023 Provision of activity privileges [facility] Start: 06-09-2023 Recommendation to continue with treatment [facility] Start: 06-09-2023 Referral to service [facility] Start: 06-09-2023 Taking patient vital signs [facility] Start: 06-09-2023 [facility] Start: 06-09-2023 Admission procedure [facility] Start: 12-18-2021 Patient discharge [facility] Work Phone: Start: 12-18-2021 Removal of urinary catheter [facility] Work Phone: Start: 12-18-2021 [facility] Work Phone: Start: 12-17-2021 Oxygen therapy [facility] Work Phone: Start: 12-17-2021 Allograft for spine surgery only structural SP BONE ALGRFT STRUCT ADD-ON [facility] Work Phone: Start: 12-17-2021 Anesthesia extensive spine & spinal cord ANESTH SPINE CORD SURGERY [facility] Work Phone: Start: 12-17-2021 Anterior instrumentation 2-3 vertebral segments INSERT SPINE FIXATION DEVICE [facility] Work Phone: Start: 12-17-2021 Arthrd ant interbody decompress cervical belw c2 ARTHRD ANT NTRBDY CERVICAL [facility] Work Phone: Start: 12-17-2021 Insj biomchn dev intervertebral dsc spc w/arthrd INSJ BIOMECHANICAL DEVICE [facility] Work Phone: Start: 12-17-2021 Following clinical pathway protocol [facility] Work Phone: Start: 12-17-2021 Application of antithromboembolic stockings [facility] Work Phone: Start: 12-17-2021 Application of intermittent pneumatic compression device [facility] Work Phone: Start: 12-17-2021 Care of equipment and devices [facility] Work Phone: Start: 12-17-2021 Catheterization of vein [facility] Work Phone: Start: 12-17-2021 Consultation [facility] Work Phone: Start: 12-17-2021 Following clinical pathway protocol [facility] Work Phone: Start: 12-17-2021 Incentive spirometry [facility] Work Phone: Start: 12-17-2021 Measuring intake and output [facility] Work Phone: Start: 12-17-2021 Neurovascular assessment [facility] Work Phone: Start: 12-17-2021 Patient education [facility] Work Phone: Start: 12-17-2021 Procedure discontinued [facility] Work Phone: Start: 12-17-2021 Provision of activity privileges [facility] Work Phone: Start: 12-17-2021 Referral to service [facility] Work Phone: Start: 12-17-2021 Taking patient vital signs [facility] Work Phone: Start: 12-17-2021 Admission procedure [facility] Work Phone: Start: 08-19-2021 Patient referral [facility] Work Phone: CT Chest WO contrast [facility] Electrocardiographic procedure [facility] Work Phone: Electrocardiographic procedure [facility] Measurement of respi ratory function [facility] Breast - bilatera l Screening [facility] Breast - bilatera l Screening [facility] Patient referral [facility] Work Phone: [facility] Payers Date Payer Category Payer Self-pay [id number] 2017 Unknown [id number] 1975 Unknown [id number] Unknown [id number] Unknown Unknown [id number] Unknown [id number] 2.16.8 [id number] Unknown [id number] 2.16.8 [id number] Unknown [id number] 2.16.8 [id number] Unknown [id number] 2.16.8 [id number] Unknown [id number] 2.16.8 [id number] Unknown [id number] 2.16.8 [id number] Unknown [id number] 2.16.8 [id number] Unknown [id number] 2.16.8 [id number] Unknown [id number] 2.16.8 [id number] Unknown [id number] 2.16.8 [id number] Unknown [id number] 2.16.8 [id number] Unknown [id number] 2.16.8 [id number] Social History Date Type Detail Facility Start: 08-19-2021 End: 06-24-2023 Tobacco smoking status NHIS Unknown if ever smoked [facility] Start: 1975 Sex Assigned At Female W [facility] Start: 06-13-2024 Tobacco smoking stat us CAIS Never smoked tobacco (finding) [facility] Sex Female [facility] Medical Equipment Procedure Code Equipment Code Equipment Origin al Text Equipment Identifier Dates Discectomy, spine, cervical, anterior approach, with fusion CORELINK F3D CERVICAL FDA Start: 12-17-2021 Discectomy, spine, cervical, anterior approach, with fusion PATCH,AMNION 2X3CM FDA Start: 12-17-2021 Discectomy, spine, cervical, anterior approach, with fusion STRIP,BONE CANC [id number] FDA Start: 12-17-2021 Discectomy, spine, cervical, anterior approach, with fusion ([id number]) Spinal fixation plate, non-bioabsorbable [id number] FDA Start: 12-17-2021 Discectomy, spine, cervical, anterior approach, with fusion ([id number]) Spinal fixation plate, non-bioabsorbable [id number] FDA Start: 12-17-2021 Discectomy, spine, cervical, anterior approach, with fusion CORELINK F3D CERVICAL FDA Start: 12-17-2021 Discectomy, spine, cervical, anterior approach, with fusion PATCH,AMNION 2X3CM FDA Start: 12-17-2021 Discectomy, spine, cervical, anterior approach, with fusion STRIP,BONE CANC [id number] FDA Start: 12-17-2021 Discectomy, spine, cervical, anterior approach, with fusion CORELINK F3D CERVICAL FDA Start: 12-17-2021 Discectomy, spine, cervical, anterior approach, with fusion PATCH,AMNION 2X3CM FDA Start: 12-17-2021 Discectomy, spine, cervical, anterior approach, with fusion STRIP,BONE CANC [id number] FDA Start: 12-17-2021 Discectomy, spine, cervical, anterior approach, with fusion CORELINK F3D CERVICAL FDA Start: 12-17-2021 Discectomy, spine, cervical, anterior approach, with fusion PATCH,AMNION 2X3CM FDA Start: 12-17-2021 Discectomy, spine, cervical, anterior approach, with fusion STRIP,BONE CANC [id number] FDA Start: 12-17-2021 Discectomy, spine, cervical, anterior approach, with fusion CORELINK F3D CERVICAL FDA Start: 12-17-2021 Discectomy, spine, cervical, anterior approach, with fusion PATCH,AMNION 2X3CM FDA Start: 12-17-2021 Discectomy, spine, cervical, anterior approach, with fusion STRIP,BONE CANC [id number] FDA Start: 12-17-2021 Discectomy, spine, cervical, anterior approach, with fusion CORELINK F3D CERVICAL FDA Start: 12-17-2021 Discectomy, spine, cervical, anterior approach, with fusion PATCH,AMNION 2X3CM FDA Start: 12-17-2021 Discectomy, spine, cervical, anterior approach, with fusion STRIP,BONE CANC [id number] FDA Start: 12-17-2021 Discectomy, spine, cervical, anterior approach, with fusion CORELINK F3D CERVICAL FDA Start: 12-17-2021 Discectomy, spine, cervical, anterior approach, with fusion PATCH,AMNION 2X3CM FDA Start: 12-17-2021 Discectomy, spine, cervical, anterior approach, with fusion STRIP,BONE CANC [id number] FDA Start: 12-17-2021 Discectomy, spine, cervical, anterior approach, with fusion CORELINK F3D CERVICAL FDA Start: 12-17-2021 Discectomy, spine, cervical, anterior approach, with fusion PATCH,AMNION 2X3CM FDA Start: 12-17-2021 Discectomy, spine, cervical, anterior approach, with fusion STRIP,BONE CANC [id number] FDA Start: 12-17-2021 Discectomy, spine, cervical, anterior approach, with fusion CORELINK F3D CERVICAL FDA Start: 12-17-2021 Discectomy, spine, cervical, anterior approach, with fusion PATCH,AMNION 2X3CM FDA Start: 12-17-2021 Discectomy, spine, cervical, anterior approach, with fusion STRIP,BONE CANC [id number] FDA Start: 12-17-2021 Discectomy, spine, cervical, anterior approach, with fusion CORELINK F3D CERVICAL FDA Start: 12-17-2021 Discectomy, spine, cervical, anterior approach, with fusion PATCH,AMNION 2X3CM FDA Start: 12-17-2021 Discectomy, spine, cervical, anterior approach, with fusion STRIP,BONE CANC [id number] FDA Start: 12-17-2021 Discectomy, spine, cervical, anterior approach, with fusion CORELINK F3D CERVICAL FDA Start: 12-17-2021 Discectomy, spine, cervical, anterior approach, with fusion PATCH,AMNION 2X3CM FDA Start: 12-17-2021 Discectomy, spine, cervical, anterior approach, with fusion STRIP,BONE CANC [id number] FDA Start: 12-17-2021 Discectomy, spine, cervical, anterior approach, with fusion CORELINK F3D CERVICAL FDA Start: 12-17-2021 Discectomy, spine, cervical, anterior approach, with fusion PATCH,AMNION 2X3CM FDA Start: 12-17-2021 Discectomy, spine, cervical, anterior approach, with fusion STRIP,BONE CANC [id number] FDA Start: 12-17-2021 Discectomy, spine, cervical, anterior approach, with fusion CORELINK F3D CERVICAL FDA Start: 12-17-2021 Discectomy, spine, cervical, anterior approach, with fusion PATCH,AMNION 2X3CM FDA Start: 12-17-2021 Discectomy, spine, cervical, anterior approach, with fusion STRIP,BONE CANC [id number] FDA Start: 12-17-2021 Discectomy, spine, cervical, anterior approach, with fusion CORELINK F3D CERVICAL FDA Start: 12-17-2021 Discectomy, spine, cervical, anterior approach, with fusion PATCH,AMNION 2X3CM FDA Start: 12-17-2021 Discectomy, spine, cervical, anterior approach, with fusion STRIP,BONE CANC [id number] FDA Start: 12-17-2021 Discectomy, spine, cervical, anterior approach, with fusion CORELINK F3D CERVICAL FDA Start: 12-17-2021 Discectomy, spine, cervical, anterior approach, with fusion PATCH,AMNION 2X3CM FDA Start: 12-17-2021 Discectomy, spine, cervical, anterior approach, with fusion STRIP,BONE CANC [id number] FDA Start: 12-17-2021 Discectomy, spine, cervical, anterior approach, with fusion CORELINK F3D CERVICAL FDA Start: 12-17-2021 Discectomy, spine, cervical, anterior approach, with fusion PATCH,AMNION 2X3CM FDA Start: 12-17-2021 Discectomy, spine, cervical, anterior approach, with fusion STRIP,BONE CANC [id number] FDA Start: 12-17-2021 Discectomy, spine, cervical, anterior approach, with fusion CORELINK F3D CERVICAL FDA Start: 12-17-2021 Discectomy, spine, cervical, anterior approach, with fusion PATCH,AMNION 2X3CM FDA Start: 12-17-2021 Discectomy, spine, cervical, anterior approach, with fusion STRIP,BONE CANC [id number] FDA Start: 12-17-2021 Discectomy, spine, cervical, anterior approach, with fusion CORELINK F3D CERVICAL FDA Start: 12-17-2021 Discectomy, spine, cervical, anterior approach, with fusion PATCH,AMNION 2X3CM FDA Start: 12-17-2021 Discectomy, spine, cervical, anterior approach, with fusion STRIP,BONE CANC [id number] FDA Start: 12-17-2021 Discectomy, spine, cervical, anterior approach, with fusion 3.5 x 14 mm Variable Screws FDA Start: 06-09-2023 Discectomy, spine, cervical, anterior approach, with fusion 3.5 x 14 mm Variable Screws FDA Start: 06-09-2023 Discectomy, spine, cervical, anterior approach, with fusion PATCH,AMNION 2X3CM FDA Start: 06-09-2023 Discectomy, spine, cervical, anterior approach, with fusion STRIP,BONE CANC [id number] FDA Start: 06-09-2023 Discectomy, spine, cervical, anterior approach, with fusion Stand-Alone Cervical Corelink Cage 7mm FDA Start: 06-09-2023 Discectomy, spine, cervical, anterior approach, with fusion CORELINK F3D CERVICAL FDA Start: 12-17-2021 Discectomy, spine, cervical, anterior approach, with fusion PATCH,AMNION 2X3CM FDA Start: 12-17-2021 Discectomy, spine, cervical, anterior approach, with fusion STRIP,BONE CANC [id number] FDA Start: 12-17-2021 Discectomy, spine, cervical, anterior approach, with fusion 3.5 x 14 mm Variable Screws FDA Start: 06-09-2023 Discectomy, spine, cervical, anterior approach, with fusion 3.5 x 14 mm Variable Screws FDA Start: 06-09-2023 Discectomy, spine, cervical, anterior approach, with fusion PATCH,AMNION 2X3CM FDA Start: 06-09-2023 Discectomy, spine, cervical, anterior approach, with fusion STRIP,BONE CANC [id number] FDA Start: 06-09-2023 Discectomy, spine, cervical, anterior approach, with fusion Stand-Alone Cervical Corelink Cage 7mm FDA Start: 06-09-2023 Discectomy, spine, cervical, anterior approach, with fusion CORELINK F3D CERVICAL FDA Start: 12-17-2021 Discectomy, spine, cervical, anterior approach, with fusion PATCH,AMNION 2X3CM FDA Start: 12-17-2021 Discectomy, spine, cervical, anterior approach, with fusion STRIP,BONE CANC [id number] FDA Start: 12-17-2021 Discectomy, spine, cervical, anterior approach, with fusion 3.5 x 14 mm Variable Screws FDA Start: 06-09-2023 Discectomy, spine, cervical, anterior approach, with fusion 3.5 x 14 mm Variable Screws FDA Start: 06-09-2023 Discectomy, spine, cervical, anterior approach, with fusion PATCH,AMNION 2X3CM FDA Start: 06-09-2023 Discectomy, spine, cervical, anterior approach, with fusion STRIP,BONE CANC [id number] FDA Start: 06-09-2023 Discectomy, spine, cervical, anterior approach, with fusion Stand-Alone Cervical Corelink Cage 7mm FDA Start: 06-09-2023 Discectomy, spine, cervical, anterior approach, with fusion CORELINK F3D CERVICAL FDA Start: 12-17-2021 Discectomy, spine, cervical, anterior approach, with fusion PATCH,AMNION 2X3CM FDA Start: 12-17-2021 Discectomy, spine, cervical, anterior approach, with fusion STRIP,BONE CANC [id number] FDA Start: 12-17-2021 Discectomy, spine, cervical, anterior approach, with fusion 3.5 x 14 mm Variable Screws FDA Start: 06-09-2023 Discectomy, spine, cervical, anterior approach, with fusion 3.5 x 14 mm Variable Screws FDA Start: 06-09-2023 Discectomy, spine, cervical, anterior approach, with fusion PATCH,AMNION 2X3CM FDA Start: 06-09-2023 Discectomy, spine, cervical, anterior approach, with fusion STRIP,BONE CANC [id number] FDA Start: 06-09-2023 Discectomy, spine, cervical, anterior approach, with fusion Stand-Alone Cervical Corelink Cage 7mm FDA Start: 06-09-2023 Discectomy, spine, cervical, anterior approach, with fusion CORELINK F3D CERVICAL FDA Start: 12-17-2021 Discectomy, spine, cervical, anterior approach, with fusion PATCH,AMNION 2X3CM FDA Start: 12-17-2021 Discectomy, spine, cervical, anterior approach, with fusion STRIP,BONE CANC [id number] FDA Start: 12-17-2021 Discectomy, spine, cervical, anterior approach, with fusion 3.5 x 14 mm Variable Screws FDA Start: 06-09-2023 Discectomy, spine, cervical, anterior approach, with fusion 3.5 x 14 mm Variable Screws FDA Start: 06-09-2023 Discectomy, spine, cervical, anterior approach, with fusion PATCH,AMNION 2X3CM FDA Start: 06-09-2023 Discectomy, spine, cervical, anterior approach, with fusion STRIP,BONE CANC [id number] FDA Start: 06-09-2023 Discectomy, spine, cervical, anterior approach, with fusion Stand-Alone Cervical Corelink Cage 7mm FDA Start: 06-09-2023 Discectomy, spine, cervical, anterior approach, with fusion CORELINK F3D CERVICAL FDA Start: 12-17-2021 Discectomy, spine, cervical, anterior approach, with fusion PATCH,AMNION 2X3CM FDA Start: 12-17-2021 Discectomy, spine, cervical, anterior approach, with fusion STRIP,BONE CANC [id number] FDA Start: 12-17-2021 Discectomy, spine, cervical, anterior approach, with fusion 3.5 x 14 mm Variable Screws FDA Start: 06-09-2023 Discectomy, spine, cervical, anterior approach, with fusion 3.5 x 14 mm Variable Screws FDA Start: 06-09-2023 Discectomy, spine, cervical, anterior approach, with fusion PATCH,AMNION 2X3CM FDA Start: 06-09-2023 Discectomy, spine, cervical, anterior approach, with fusion STRIP,BONE CANC [id number] FDA Start: 06-09-2023 Discectomy, spine, cervical, anterior approach, with fusion Stand-Alone Cervical Corelink Cage 7mm FDA Start: 06-09-2023 Discectomy, spine, cervical, anterior approach, with fusion CORELINK F3D CERVICAL FDA Start: 12-17-2021 Discectomy, spine, cervical, anterior approach, with fusion PATCH,AMNION 2X3CM FDA Start: 12-17-2021 Discectomy, spine, cervical, anterior approach, with fusion STRIP,BONE CANC [id number] FDA Start: 12-17-2021 Discectomy, spine, cervical, anterior approach, with fusion 3.5 x 14 mm Variable Screws FDA Start: 06-09-2023 Discectomy, spine, cervical, anterior approach, with fusion 3.5 x 14 mm Variable Screws FDA Start: 06-09-2023 Discectomy, spine, cervical, anterior approach, with fusion PATCH,AMNION 2X3CM FDA Start: 06-09-2023 Discectomy, spine, cervical, anterior approach, with fusion STRIP,BONE CANC [id number] FDA Start: 06-09-2023 Discectomy, spine, cervical, anterior approach, with fusion Stand-Alone Cervical Corelink Cage 7mm FDA Start: 06-09-2023 Goals Date Patient Goal Desired Activity /State Functional Status Date Assessment Result Facility 06-10-2023 Functional status Chair [facility] Work Phone: 12-18-2021 Functional status Bathroom Privilege [facility] Work Phone: Mental Status Date Assessment Result Facility 06-10-2023 Cognitive function Level Of Cons ciousness Awake;Alert;Appropriate;Follow s Commands [facility] Work Phone: 06-10-2023 Cognitive function Voice/Name [facility] Work Phone: 12-18-2021 Cognitive function Voice/Name [facility] Work Phone: 08-01-2021 Cognitive function Level Of Cons ciousness Awake;Alert;Appropriate;Follow s Commands [facility] Work Phone: Clinical Notes 10-22-2020 to 12-28-2024 Note Date & Type Note Facility 12-28-2024 Procedure note [facility] 12-14-2024 Evaluation note Diagnosis Onset Date Resolution Fatigue acute December 14, 2024 7:52am Migraine headache without aura acute December 14, 2024 7 :52am Paresthesias acute December 14 7:52am [facility] Work Phone: 1(570) 266-554106-04-2025 Evaluation note* Diagnosis Onset Date Resolution Status Admit Date Fatigue acute December 14, 2024 7:52am Migraine headache without aura acute December 14, 2024 7:52am Paresthesias acute December 14 7:52am Fatigue acute March 7:54am Migraine headache without aura acute March 29, 2025 7:54am Paresthesias acute March 292024 7:54am [facility] Work Phone: 1(640) 201-671202-27-2025 Evaluation note* Diagnosis Onset Date Resolution Status Admit Date Climacteric acute August 8:41am Hormone replacement therapy acute September 08, 2024 8:41am Migraine headache without aura acute September 08, 2024 8:41am Fatigue acute December 14, 2024 7:52am Migraine headache without aura acute December 14, 2024 7:52am Paresthesias acute December 14 7:52am [facility] Work Phone: 1(844) 895-854212-02-2024 [facility] Medical Records Department [address] [place] [address] History Physical Exam 06/13/24 0719 MR#: [id number] Acct: [id number] Name: TIERRA MALCOLM Rep #: [id number] : 1975 49 From: Winsome Rangel MD PCP: Dr. Breezy Alegria MD Status:[facility] Location: [place] [address] HPI - General General Date of Service: 06/13/24 HPI Narrative TIERRA MALCOLM, is a 49 F who presents for a screening colonoscopy due to family history of colon cancer in her dad???in his 50s. Patient's last colonoscopy was 12/2018 negative. Patient has bowel movements daily denies any blood. Patient denies any chronic abdominal pain/nausea/vomiting and only occasional reflux depending what she eats.. 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 No endocervical component is identified.[facility] INTER[facility] A#[id number] County Community HospitalComcorewell health [facility] on above:Satisfactory for evaluation. No endocervical component is identified.09-02-2023 NotePap Smear QC ReviewFebruary 2023 1:30pmComment.Delia Tapia, Supervisory Components Engineer ([facility] INTERFACED A#[id number] Community Hospital on above:Delia Tapia, Supervisory Components Engineer (ASCP)09-02-2023 NotePap Smear Specimen AdequacyFebruary 2023 1:30pmComment.Satisfactory for evaluation. No endocervical component is identified.[facility] INTER[facility]ED A#[id number] Hospitals TriPoint Medical CenterComment on above:Satisfactory for evaluation. No endocervical component is identified. 09-02-2023 NotePap Smear QC ReviewFebruary 2023 1:30pmComment.Delia Tapia, Supervisory Components Engineer (ASCP)[facility] INTER[facility] A#[id number] County Community HospitalComment on above:Delia Tapia, Supervisory Components Engineer (ASCP)06-09-2023 Progress note Author [facility] June 09, 2023 8:22pm Note Date/Time June 09, 2023 5:02pm [facility] Medical Records Department [address] [place] [address] Progress Note - Hospitalist 06/09/23 1655 MR#: [id number] Acct: [id number] Name: TIERRA MALCOLM Rep #:[id number] : 1975 48 From: John lopes DO PCP: Dr. Breezy Alegria MD [facility] Location: [place] [id number] Reason for Visit Reason for Visit: Diagnoses [...] is a 48-year-old female who presented to [facility] on 06/09/2023 for a planned [...] 25 minutes. Charges/Coding Visit Charges Inpatient E&M: 50226 Subs Hosp L1 06/09/232021 <Electronically signed by John Ennis DO> Cosigner Signature (if applicable): CC: ~ Signed [facility] Work Phone: 1(413) 355-204211-28-2023 Procedure [facility] 06-08-2023 History and physical note Author Gerardo Guthrie [facility] June 08, 2023 3:53pm Note Date/Time June 08, 2023 3:53pm [facility] Medical Records Department [address] [place] [address] [place] [address] History & Physical Exam 06/08/23 1553 MR#: [id number] Acct: [id number] Name: TIERRA MALCOLM Rep #:[id number] : 1975 48 From: Gerardo Abdi PCP: Dr. Breezy Alegria MD Status:[facility] [place] Location: [facility] [place] History and Physical [id number] Acct: [id number] Name: TIERRA MALCOLM Rep #: [id number] : 1975 Provider: Dr. Gerardo Guthrie DO Age/Sex: 47/F Location: [facility] [place] Status: Signed Intake Vital Signs 10/22/2311:46 Height [...] tablet (Vitamin C) 1,000 mg PO DAILY [id number]/26/22 [History Confirmed 10/24/22] coenzyme Q10 100 mg [...] Alegria MD; Dr. Gerardo Guthrie DO~ Signed [facility] Work Phone: 1(531) 868-617010-11-2023 Procedure [facility] 06-03-2022 NotePap Smear Specimen AdequacyNovember 2021 8:34amComment. Satisfactory for evaluation. Endocervical and/or squamous metaplasticcells (endocervical component)are present.[facility] INTER[facility] A#[id number] Hospitals TriPoint Medical Center Work Phone: Comment on above:Satisfactory for evaluation. Endocervical and/or squamous metaplasticcells (endocervical component)are present.05-01-2022 NoteHNO ID: [id number] Author: Tasneem Samuel APRN.COMPUTER OPERATIONS TECHNICIAN Service: Anesthesiology Author Type: Nurse Debrander Type: Anesthesia Procedure Notes Filed: 05/01/2022 4:38 PM Note Text: ANESTHESIOLOGY PROCEDURE NOTE Airway General Information Procedure Start Time/Medication Administration: 05/01/2022 4:36 PM Patient location during procedure: OR Timeout Performed Pre-procedure: timeout performed Consent Obtained: Yes Patient identity confirmed: arm band and patient Staffing Anesthesiologist: Hugh Espinal DO COMPUTER OPERATIONS TECHNICIAN: Tasneem Samuel APRN.COMPUTER OPERATIONS TECHNICIAN Performed by: SAGRARIO Indications and Patient Condition Indications for airway management: anesthesia Preoxygenated: yes anesthesia circuit Patient position: sniffing Method: asleep Final Airway Details Final airway type: supraglottic airway Number of attempts at approach: 1 Final Supraglottic Airway: LMA Classic Size 3 Seal Adequate: yes SIGNATURE: Tasneem Samuel APRN.COMPUTER OPERATIONS TECHNICIAN PATIENT NAME: Tierra Malcolm DATE: May 01, 2022 TIME: 4:37 PM CSN: [id number] NoteHNO ID: [id number] Author: Nancy Leo MD Service: Anesthesiology Author [...] updated instructions for the morning of your procedure.[facility]01-07-2022 SARS-CoV RNA FRANCES+probe Ql (Unsp spec)Coronavirus 2019 (FRANCES)July 20, 2021 12:59amDetectedNot DetectedPatients who have a positive COVID-19 test result may nowhave treatment options. Treatment options are available forpatients with mild to moderate symptoms and forhospitalized patients. Visit our website [email or web address] for resources andinformation.This nucleic acid amplification test was developed and itsperformance characteristics determined by [facility]. Nucleic acid amplification tests include RT-PCR and TMA. This test has not been FDA cleared orapproved. This test has been authorized by FDA under anEmergency Use Authorization (EUA). This test is onlyauthorizedfor the duration of time the declaration thatcircumstances exist justifying the authorization of theemergency use of in vitro diagnostic tests for detection tfRUAL-UlI-0 virus and/or diagnosis of COVID-19 infectionunder section [...] have a negative(not detected) result in this assay.[employer] INTERFACED A#[id number] County Community Hospital Work Phone: Comment on above:Patients who have a positive COVID-19 test result may nowhave treatment options. Treatment options are available forpatients with mild to moderate symptoms and forhospitalized patients. Visit our website [email or web address] for resources andinformation.This nucleic acid amplification test was developed and itsperformance characteristics determined by [facility]. Nucleic acid amplification tests include RT- PCR and TMA. This test has not been FDA cleared orapproved. This test has been authorized by FDA under anEmergency Use Authorization (EUA). This test is onlyauthorizedfor the duration of time the declaration thatcircumstances exist justifying the authorization of theemergency use of in vitro diagnostic tests for detection qwLRYC-ZkR-2 virus and/or diagnosis of COVID-19 infectionunder section [...] detected) result in this assay.03-28-2021 NoteHNO ID: [id number] Author: Savannah Gomez, DO Service: ? Author Type: Physician Type: Progress Notes Filed: 03/28/2021 9:26 AM Note Text: Tierra Malcolm is a 45 year old female who presents with a chief complaint of Post Op SUBJECTIVE She presents as a follow-up 3 months from her [facility] hysteroscopy and endometrial ablation. She states she [...] Follow-up with Dr. Mae for annual Savannah Gomez, [facility]08-12-2021 NoteHNO ID: [id number] Author: RT Chin(R) Service: ? Author Type: Real Estate Representative Type: Progress Notes Filed: 02/21/2021 8:27 AM [...] BY: RT Chin(R) February 21, 2021 8:26 [facility]06-28-2021 NoteHNO ID: [id number] Author: Savannah Gomez DO Service: ? Author Type: Physician Type: Progress Notes Filed: 01/07/2021 10:00 AM Note Text: Tierra Malcolm is a 45 year old female who presents with a chief complaint of Post-Op Visit SUBJECTIVE Presents 2 weeks postop [facility] hysteroscopy and endometrial ablation. 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 Staffing Anesthesiologist: Nikolas Mcmullen MD COMPUTER OPERATIONS TECHNICIAN: Pietro Krueger APRN.COMPUTER OPERATIONS TECHNICIAN Performed by: SAGRARIO Indications and Patient Condition Preoxygenated: yes Indications for airway management: anesthesia and airway protection anesthesia circuit Method: asleep Final Airway Details Final airway type: supraglottic airway Number of attempts at approach: 1 Final Supraglottic Airway: LMA ProSeal Size 1 Seal Adequate: yes Failed airway: no Unrecognized esophageal intubation: no Airway not difficult SIGNATURE: Pietro Krueger APRN.COMPUTER OPERATIONS TECHNICIAN PATIENT NAME: Tierra Malcolm DATE: December 25, 2020 TIME: 8:07 AM CSN: [id number], [place]05-18-2021 NoteHNO ID: [id number] Author: Savannah Gomez DO Service: ? Author Type: Physician Type: Progress Notes Filed: 11/27/2020 1:52 PM Note Text: Tierra Malcolm is a 45 year old female who presents with a chief complaint of Pre-Op Visit (Sign surgery consent) SUBJECTIVE Patient presents for preop for her [facility] hysteroscopy and endometrial ablation. We went over [...] Consent signed and ready for surgery Savannah Gomez, [facility]05-18-2021 NotePatient Outreach (VTRIAG) TIERRA MALCOLM ([id number]) 1975 F Date Time Provider Department 11/27/20 ELISA BERMUDEZ During your visit today, we recorded the following information about you: Elisa Bermudez PA-C 12/28/2020 3:00 AM Signed Actionable Finding Review. This patient showed up on the actionable finding registry with a abnormal CT chest 07/2020 and I am tasked to assist with this for the [place]. Report: There are multiple scattered bilateral pulmonary [...] Of Date: 11/27/2020 (None) Encounter Status:Closed by UNA BURNS on 12/28/20[facility] 11-27-2020 NoteHNO ID: [id number] Author: Elisa Bermudez PA-C Service: ? Author Type: Physician Head Of Ethics And Compliance Type: Progress Notes Filed: 12/28/2020 3:00 AM Note Text: Actionable Finding Review. This patient showed up on the actionable finding registry with a abnormal CT chest 07/2020 and I am tasked to assist with this for the [place]. Report: There are multiple scattered bilateral pulmonary [...] Elisa Bermudez PA-C November 27, 2020 8:20 [facility]04-27-2021 NoteHNO ID: [id number] Author: RT Chin(R) Service: ? Author Type: Real Estate Representative Type: Progress Notes Filed: 11/06/2020 8:41 AM Note Text: Radiology Service Progress Note PATIENT NAME: Tierra Malcolm DATE OF SERVICE: November 06, 2020 TIME: [...] Chasidy Starks RDMS November 06, 2020 8:40 [facility]04-19-2021 NoteHNO ID: [id number] Author: Savannah Gomez Service: ? Author Type: [...] Dr. Mae. She does not use anything [id number] to make her bleeding any better PAST [...] 626.2, ICD10: N92.0 Obtain an ultrasound at [facility] and possibly set up surgery after the results have come back - PELVIC US I Savannah Gomez, [facility]04-12-2021 NoteHNO ID: [id number] Author: Harinder Quintanilla Pap Service: ? Author Type: Physician Type: Progress Notes Filed: 10/22/2020 10:41 AM Note Text: Tierra Malcolm is a 45 year old female who presents for annual exam. Breast biopsy negative a year ago. Periods regular every month but getting heavier. S/P TL. HCT 35. Discussed endometrial ablation. Will call Dr. Biats for ablation if she desires. 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 - PAP FLUID CERVICAL SCREENING Harinedr Mae, [facility] summary Author Gerardo Guthrie [facility] June 10, 2023 12:13pm Note Date/Time June 10, 2023 12:13pm [facility] Medical Records Department [address] [place] [id number] Discharge Summary 06/10/23 1210 MR#: [id number] Acct: [id number] Name: TIERRA MALCOLM Rep #:[id number] : 1975 48 From: Gerardo Abdi PCP: Dr. Breezy Alegria MD Status:DUSTY TEJEDA Location: [place] [address] Providers Date of Admission: 06/09/23 Primary Care Physician: Dr. Breezy Alegria MD Consultations 06/09/23 12:27 Consult: Hospitalist Routine Consulting Provider: John Ennis Reason for Consult: med management EMERGENT Consult: No MD Notified: Yes Date Notified: 06/09/23 Time Notified: 15:23 Method of Notification: Text Reason For Visit: [...] an appointment to see me in the [id number] future I will give her some oxycodone [...] tablet (Vitamin C) 1,000 mg PO QODAY [id number]/26/22 coenzyme Q10 100 mg capsule (CoQ-10) 100 [...] (MDRD) Non-Af 71, BUN/Creatinine Ratio 7.7 L, [id number] H, Calcium 8.5 Microbiology: Microbiology 05/29/23 09:03 [...] Alegria MD; Dr. Gerardo Guthrie DO~ Signed [facility] Work Phone: Evaluation note* Diagnosis Onset Date Resolution Status Cervical (neck) region somatic dysfunction acute Neck pain acute [facility] Work Phone: Evaluation note* Diagnosis Onset Date Resolution Status Foraminal stenosis of cervical region acute Foraminal stenosis of cervical region acute Cervical (neck) region somatic dysfunction acute Foraminal stenosis of cervical region acute [facility] Work Phone: Evaluation note* Diagnosis Onset Date Resolution Status Foraminal stenosis of cervical region resolved Foraminal stenosis of cervical region resolved Cervical (neck) region somatic dysfunction resolved Foraminal stenosis of cervical region resolved S/P cervical spinal fusion a cute S/P cervical spinal fusion a cute S/P cervical spinal fusion a [facility] Work Phone: Evaluation note* Diagnosis Onset Date Resolution Status Foraminal stenosis of cervical region resolved Foraminal stenosis of cervical region resolved Cervical (neck) region somatic dysfunction resolved Foraminal stenosis of cervical region resolved S/P cervical spinal fusion a cute S/P cervical spinal fusion a cute S/P cervical spinal fusion a cute S/P cervical spinal fusion a [facility] Work Phone: Evaluation note* Diagnosis Onset Date Resolution Status S/P cervical spinal fusion a cute Segmental and somatic dysfunction of cervical region acute Cervical facet syndrome acut e S/P cervical spinal fusion a [facility] Work Phone: Evaluation note* Diagnosis Onset Date Resolution Status S/P cervical spinal fusion a cute Segmental and somatic dysfunction of cervical region acute Cervical facet syndrome acut e S/P cervical spinal fusion a [facility] Left breast mass acute [facility] Work Phone: Evaluation note* Diagnosis Onset Date Resolution Status Rheumatoid arthritis chronic Herniated nucleus pulposus, C6-7 acute S/P cervical spinal fusion a [facility] Work Phone: Evaluation note* Diagnosis Onset Date Resolution Status Herniated nucleus pulposus, C6-7 acute S/P cervical spinal fusion a cute Herniated nucleus pulposus, C6-7 acute Herniated nucleus pulposus, C6-7 acute Left breast mass acute [facility] Work Phone: Evaluation note* Diagnosis Onset Date Resolution Status Herniated nucleus pulposus, C6-7 acute Neoplasm of cervical spine n oneactive [facility] Work Phone: Evaluation note* Diagnosis Onset Date Resolution Status Herniated nucleus pulposus, C6-7 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 Herniated nucleus pulposus, C6-7 acute Herniated nucleus pulposus, C6-7 acute S/P cervical spinal fusion a [facility] Work Phone: Evaluation note* Diagnosis Onset Date Resolution Status Migraine headache without aura acute Climacteric acute Family history of colon cancer in father acute Encounter for routine gynecological examination noneactive S/P cervical spinal fusion a [facility] Work Phone: Evaluation note* Diagnosis Onset Date Resolution Status Migraine headache without aura acute Climacteric acute Family history of colon cancer in father acute Encounter for routine gynecological examination noneactive S/P cervical spinal fusion a [facility] Climacteric acute [facility] Work Phone: Evaluation note* Diagnosis Onset Date Resolution Status Herniated nucleus pulposus, C6-7 resolved 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 Medical Records Department [address] [place] [address] Progress Note 06/10/23 1304 MR#: [id number] Acct: [id number] Name: TIERRA MALCOLM Rep #:[id number] : 1975 48 From: Paula Cherry MD PCP: Dr. Breezy Alegria MD Status:AD M [facility] Location: CA3 [id number] Subjective Subjective Patient seen and examined. She [...] prophylaxis; lovenox Charges/Coding Visit Charges Inpatient E&M: 57834 Subs Hosp L2 06/10/23 1309 <Electronically signed by Paula Cherry MD> Paula Cherry MD Cosigner Signature (if applicable): CC: ~ Signed [facility] Work Phone: Reason for referral (narrative)No reason for referral [facility] Work Phone: Summary Purpose Family History No Family History Records Found Relationship Condition Age at Onset Recorded Date/T sara father Malignant neoplasm of colon Unknown son Asthma Unknown Relationship Condition Age at Onset Recorded Date/T sara father Malignant neoplasm of colon Unknown son Asthma Unknown mother Hypertension Unknown Relationship Condition Age at Onset Recorded Date/T sara father Malignant neoplasm of colon 50 son Asthma Unknown mother Hypertension Unknown Advance Directives No Advanced Directives Records Found Advance Directive Response Recorded Date/ Time Living Will No December 20, 2018 8:28am Power of Redrawer No December 20 9 8:28am Advance Directive Response Recorded Date/ Time Living Will No December 17, 2021 1 2:50pm Power of Redrawer No December 17, 2021 12:50pm Advance Directive Response Recorded Date/ Time Living Will No December 17, 2021 1 1:50am Power of Redrawer No December 17, 2021 11:50am Advance Directive Response Recorded Date/ Time Living Will No October 21, 2022 12:46pm Power of Redrawer No October 21 12:46pm Advance Directive Response Recorded Date/ Time Living Will No October 21, 2022 11:46am Power of Redrawer No October 21 11:46am Advance Directive Response Recorded Date/ Time Name of Medical Power of Redrawer Pop Malcolm June 09, 2023 3:40pm Living Will Yes June 09, 2 023 3:40pm Power of Redrawer Yes June 09, 2023 3:40pm Advance Directive Response Recorded Date/ Time Living Will Yes August 17 10:53am Power of Redrawer Yes August 17, 2023 10:53am Advance Directive Response Recorded Date/ Time Living Will Yes August 17 10:53am Do you have a Healthcare Power of Redrawer? 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 PAP CERVICAL SPINE room 3 menopause [...] 7:52am Paresthesias December 14, 2024 7:52a m Chief Complaint Admit Date Medication follow up September 08, 2024 8:41am 1 Y FU December 14, 2024 7:52a m BUE; neck pain; bilat upper extremity ti ngling December 28, 2024 6:45am BUE; neck pain; bilat upper extremity ti ngling December 28, 2024 2:56pm Chief Complaint Admit Date 1 Y FU December 14, 2024 7:52a m BUE; neck pain; bilat upper extremity ti ngling December 28, 2024 6:45am BUE; neck pain; bilat upper extremity ti ngling December 28, 2024 2:56pm Reason for Visit Admit Date Fatigue December 14, 2024 7:52a m Migraine headache without aura December 14, 2024 7:52am Paresthesias December 14, 2024 7:52a m Chief Complaint Admit Date 1 Y FU December 14, 2024 7:52a m BUE; neck pain; bilat upper extremity ti ngling December 28, 2024 6:45am BUE; neck pain; bilat upper extremity ti ngling December 28, 2024 2:56pm 3 M FU March 29, 2025 7:54am Reason for Visit Admit Date Fatigue December 14, 2024 7:52a m Migraine headache without aura December 14, 2024 7:52am Paresthesias December 14, 2024 7:52a m Fatigue March 29, 2025 7:54am Migraine headache without aura March 29, 2025 7:54am Paresthesias March 29, 2025 7:54am Additional Source Comments INFORMATION SOURCE (unrecogn ized section and content) DATE CREATED AUTHOR 03/30/2021 [facility] DATE CREATED AUTHOR AUTHOR'S ORGANIZ ATION 03/30/2021 [facility] DATE CREATED AUTHOR AUTHOR'S ORGANIZ ATION 08/15/2021 [facility] DATE CREATED AUTHOR AUTHOR'S ORGANIZ ATION 04/18/2022 [facility] DATE CREATED AUTHOR AUTHOR'S ORGANIZ ATION 05/06/2022 [facility] DATE CREATED AUTHOR AUTHOR'S ORGANIZ ATION 03/30/2025 [facility] Care Teams (unrecognized sec tion and content) [...] Gerardo Guthrie DO Attending Provider, Referring P juan Active Team Status: Inactive Member Role Status [...] MD Primary Care Provider Active Traci Lange PLASTERING SUPERVISOR, PLASTERING SUPERVISOR-C Attending Provider, Referrin g Provider Active Team Status: Inactive Member Role Status Dates Dr. Breezy Alegria MD Primary Care Provider, Referr ing Provider Active Traci Lange PLASTERING SUPERVISOR, PLASTERING SUPERVISOR-C Attending Provider Active Team Status: Active Member [...] Provider, Referr ing Provider Active Arlene Mcqueen PLASTERING SUPERVISOR, PLASTERING SUPERVISOR-C Attending Provider Active Team Status: Inactive Member Role Status Dates Dr. Breezy Alegria MD Primary Care Provider Active Dr. Ismael Frazier MD Attending Provider Active Team Status: Inactive Member Role Status Dates Dr. Breezy Alegria MD Primary Care Provider Active Arlene Mcqueen PLASTERING SUPERVISOR, PLASTERING SUPERVISOR-C Attending Provider, Referring Provider Active Team Status: [...] 2024 End: September 08, 2024 Arlene Mcqueen PLASTERING SUPERVISOR, PLASTERING SUPERVISOR-C Attending Provider Active Start: September 08, 2024 [...] December 14, 2024 End: December 14, 2024 Team Status: Active Member Role Status Dates Dr. Breezy Alegria MD Primary Care Provider Active Team Status: Inactive Member Role Status Dates Dr. Breezy Alegria MD Primary Care Provider Active Start: December 28, 2024 End: December 28, 2024 Dr. Trino Christian MD Attending Provider Active Start: December 28, 2024 End: December 28, 2024 Dr. Trino Christian MD Referring Provider Active Start: December 28, 2024 End: December 28, 2024 Team Status: Active Member Role Status Dates Dr. Breezy Alegria MD Primary Care Provider Active Start: December 28, 2024 Dr. Trino Christian MD Referring Provider Active Start: December 28, 2024 Dr. Trino Christian MD Other Provider Active S tart: December 28, 2024 Dr. Aury Jennings MD Attending Provider Active S tart: December 28, 2024 Team Status: Active Member Role/Relationship Status Dates Dr. Breezy Alegria MD Primary Care Provider Active Team Status: Inactive Member Role/Relationship Status Dates Dr. Breezy Alegria MD Primary Care Provider Active Start: December 14, 2024 End: December 14, 2024 Dr. Trino Christian MD Attending Provider Active Start: December 14, 2024 End: December 14, 2024 Dr. Trino Christian MD Referring Provider Active Start: December 14, 2024 End: December 14, 2024 Team Status: Inactive Member Role/Relationship Status Dates Dr. Breezy Alegria MD Primary Care Provider Active Start: December 28, 2024 End: December 28, 2024 Dr. Trino Christian MD Attending Provider Active Start: December 28, 2024 End: December 28, 2024 Dr. Trino Christian MD Referring Provider Active Start: December 28, 2024 End: December 28, 2024 Team Status: Active Member Role/Relationship Status Dates Dr. Breezy Alegria MD Primary Care Provider Active Start: December 28, 2024 Dr. Trino Christian MD Referring Provider Active Start: December 28, 2024 Dr. Trino Christian MD Other Provider Active S tart: December 28, 2024 Dr. Aury Jennings MD Attending Provider Active S tart: December 28, 2024 Team Status: Inactive Member Role/Relationship Status Dates Dr. Breezy Alegria MD Primary Care Provider Active Start: March 01, 2025 End: March 01, 2025 Dr. Breezy Alegria MD Attending Provider Active Start: March 01, 2025 End: March 01, 2025 Dr. Breezy Alegria MD Referring Provider Active Start: March 01, 2025 End: March 01, 2025 Team Status: Active Member Role/Relationship Status Dates Dr. Breezy Alegria MD Primary care physician Active Team Status: Inactive Member Role/Relationship Status Dates Dr. Breezy Alegria MD Primary care physician Active Start: December 14, 2024 End: December 14, 2024 Dr. Trino Christian MD Attending physician Active Start: December 14, 2024 End: December 14, 2024 Dr. Trino Christian MD Referring Provider Active Start: December 14, 2024 End: December 14, 2024 Team Status: Inactive Member Role/Relationship Status Dates Dr. Breezy Alegria MD Primary care physician Active Start: December 28, 2024 End: December 28, 2024 Dr. Trino Chrisitan MD Attending physician Active Start: December 28, 2024 End: December 28, 2024 Dr. Trino Christian MD Referring Provider Active Start: December 28, 2024 End: December 28, 2024 Team Status: Active Member Role/Relationship Status Dates Dr. Breezy Alegria MD Primary care physician Active Start: December 28, 2024 Dr. Trino Christian MD Referring Provider Active Start: December 28, 2024 Dr. Trino Christain MD Nurse Practitioner Active Start: December 28, 2024 Dr. Aury Jennings MD Attending physician Active Start: December 28, 2024 Team Status: Inactive Member Role/Relationship Status Dates Dr. Breezy Alegria MD Primary care physician Active Start: March 01, 2025 End: March 01, 2025 Dr. Breezy Alegria MD Attending physician Active Start: March 01, 2025 End: March 01, 2025 Dr. Breezy Alegria MD Referring Provider Active Start: March 01, 2025 End: March 01, 2025 Team Status: Inactive Member Role/Relationship Status Dates Dr. Breezy Alegria MD Primary care physician Active Start: March 29, 2025 End: March 29, 2025 Dr. Breezy Alegria MD Referring Provider Active Start: March 29, 2025 End: March 29, 2025 Dr. Trino Christian MD Attending physician Active Start: March 29, 2025 End: March 29, 2025 FOR RECORDS PERTAINING TO PATIENTS WHO ARE [...] BE BASED ON THE PRIMARY CLINICAL RECORDS. [employer] provides no warranty or guarantee of the accuracy or completeness of information in this document.
--- NOTE | 2025-06-30 07:15 | BI_ITS ---
EXAM: SCRN MAMM (CAD)W/GATO BILAT DATE: 06/30/2025 CLINICAL HISTORY: F, Age 50 y/o , SCREENING FOR BREAST CANCER Mother with breast cancer. Prior left ultrasound-guided breast biopsies. TECHNIQUE: Procedure Code: [id number] Modality: MG Procedure: SCRN MAMM (CAD)W/GATO BILAT COMPARISON: Prior exam(s) dated June 29, 2025.. FINDINGS: TISSUE DENSITY: The breasts are heterogeneously dense, which may obscure small masses. Bilateral Breast Mammographic Findings: No significant masses, calcifications or other abnormalities are identified. A tissue clip marker is again seen within a 3 mm nodule in the deep central medial aspect of the left breast. A 2nd tissue clip marker is also seen in the 9.6 mm nodule in the anterior upper lateral aspect of the left breast. No suspicious masses, areas of developing architectural distortion, or suspicious calcifications. There has been no significant interval change. BI/SCRN MAMM (CAD)W/GATO BILAT IMPRESSION: Bilateral screening mammogram. OVERALL FINAL ASSESSMENT BI-RADS 2: BENIGN RECOMMENDATION: Routine annual follow-up in 1 Year Additional Recommendation none A letter with findings and recommendations will be mailed to the patient. Reading Location: [place]
== END | disposition home or self-care (01) ==
LOC: OPBI 07:04
PROVIDERS: PCP Family Medicine; Referring Provider Nurse Practitioner Women's Health; Visit Provider Nurse Practitioner Women's Health
DX: Z12.31 Encounter for screening mammogram for malignant neoplasm of breast (principal)
CPT/HCPCS: 77063; 77067